=== PATIENT | male | born 1945 | race Caucasian/White ===

== ENCOUNTER → 2016-08-09 | Outpatient (CLI) | payer BC, MEDICARE ==
[2016-08-09 08:52] LABS: Appearance,Urine Clear (Clear); Bilirubin,Urine Negative (Negative); Glucose,Urine (UA) 3+ (Negative); HCT 37.5 % (39.0-53.0); HDW 3.06; HGB 11.6 gm/dL (13.0-17.5); Hypochromasia Slight; Ketones,Urine Negative (Negative); Leukocyte Esterase,Urine Negative (Negative); MCH 27.2 pg (25.0-35.0); MCHC 30.9 g/dL (31.0-37.0); Mean Platelet Volume 7.9; Mucus,Urine Rare /hpf; Nitrite,Urine Negative (Negative); PH, Urine 6.5 (5.0-8.0); Particle Count 2175; Protein,Urine 3+ (Negative); RBC 4.27 m/uL (4.30-5.90); RBC,Urine 8 /hpf (0-5); Specific Gravity,Urine 1.014 (1.001-1.035); Squamous Epithelial Cell,Urine <1 /hpf (0-4); UA Billing (MACRO vs. MICRO) MICRO; Urobilinogen,Urine <2.0 mg/dL (<2.0); WBC 4.2 k/uL (3.8-10.6); WBC,Urine 3 /hpf (0-5)
[2016-08-09 10:48] LABS: Anion Gap 9 mmol/L; Blood Urea Nitrogen 42 mg/dL (9-20); Calcium 8.1 mg/dL (8.4-10.2); Carbon Dioxide 23 mmol/L (22-30); Chloride 109 mmol/L (98-107); Glucose 263 mg/dL (74-99); Iron 37 ug/dL (49-181); Magnesium 1.8 mg/dL (1.6-2.3); Non-African American GFR(MDRD) 27 (>60 ml/min/1.73 sqM); Phosphorous 4.4 mg/dL (2.5-4.5); Potassium 5.7 mmol/L (3.5-5.1); Sodium 141 mmol/L (137-145); Uric Acid 6.3 mg/dL (3.5-8.5)
[2016-08-09 11:07] LABS: Total Iron Binding Capacity 265 ug/dL (261-462)
== END | disposition home or self-care (01) ==
LOC: LABWHC1 08:09
PROVIDERS: ATTEND Internal Medicine
DX: N18.3 Chronic kidney disease, stage 3 (moderate) (principal); I10 Essential (primary) hypertension; E55.9 Vitamin D deficiency, unspecified; E11.9 Type 2 diabetes mellitus without complications; Z94.0 Kidney transplant status
CPT/HCPCS: 36415; 80048; 81001; 82306; 83540; 83550; 83735; 83970; 84100; 84550; 85027

== ENCOUNTER → 2016-08-14 | Outpatient (CLI) | payer BC, MEDICARE | END | disposition home or self-care (01) | LOC: LABWHC1 07:16 | PROVIDERS: ATTEND Internal Medicine Nephrology | DX: Z48.22 Encounter for aftercare following kidney transplant (principal) | CPT/HCPCS: 36415; 80197 ==

== ENCOUNTER → 2016-08-16 | Outpatient (CLI) | payer BC, MEDICARE ==
[2016-08-16 09:19] LABS: CH 27.7; CHCM 31.5; HCT 36.6 % (39.0-53.0); HDW 3.28; HGB 11.8 gm/dL (13.0-17.5); Hypochromasia Moderate; MCH 28.4 pg (25.0-35.0); MCHC 32.1 g/dL (31.0-37.0); MCV 88.5 fL (80.0-100.0); Mean Platelet Volume 6.7; RBC 4.14 m/uL (4.30-5.90); RDW 14.9 % (11.5-15.5); WBC 4.2 k/uL (3.8-10.6)
[2016-08-16 09:20] LABS: Potassium 5.2 mmol/L (3.5-5.1); Total Bilirubin 0.6 mg/dL (0.2-1.3)
== END | disposition home or self-care (01) ==
LOC: LABWHC1 07:58
PROVIDERS: ATTEND Internal Medicine
DX: Z51.81 Encounter for therapeutic drug level monitoring (principal); Z79.899 Other long term (current) drug therapy; Z94.4 Liver transplant status
CPT/HCPCS: 36415; 82247; 82565; 82947; 84075; 84132; 84295; 84450; 84460; 85027

== ENCOUNTER → 2016-09-13 | Outpatient (CLI) | payer BC, MEDICARE ==
--- NOTE | 2016-09-13 12:52 | XR ---
EXAMINATION TYPE: XR chest 2V DATE OF EXAM: 09/13/2016 12:27 PM COMPARISON: 06/12/2016 INDICATION: Short of breath TECHNIQUE: Single frontal view of the chest is obtained. FINDINGS: The heart size is normal. The pulmonary vasculature is normal. The lungs are clear. Small bilateral infiltrates are present. Minimal effusion on the right is not excluded. Note is made of the screw within the distal left clavicle. IMPRESSION: 1. Mild bibasilar infiltrates slightly greater on the left. 2. Minimal right pleural effusion is not excluded.
== END | disposition home or self-care (01) ==
LOC: RADXRMAIN 12:12
PROVIDERS: ATTEND Internal Medicine
DX: R91.8 Other nonspecific abnormal finding of lung field (principal)
CPT/HCPCS: 71020

== ENCOUNTER → 2016-10-10 | Outpatient (CLI) | payer BC, MEDICARE ==
[2016-10-10 11:08] LABS: Calcium 8.6 mg/dL (8.4-10.2)
[2016-10-10 11:17] LABS: Potassium 6.3 mmol/L (3.5-5.1)
[2016-10-10 14:26] LABS: % Iron Saturation 9.8 % (20-50)
== END ==
LOC: LABWHC1 09:41
PROVIDERS: ATTEND Internal Medicine Nephrology
DX: Z94.0 Kidney transplant status (principal)
CPT/HCPCS: 36415; 80048; 82306; 82728; 83540; 83550

== ENCOUNTER → 2016-10-29 | Outpatient (CLI) | payer BC, MEDICARE ==
[2016-10-29 08:30] LABS: CH 27.5; CHCM 31.5; HCT 37.5 % (39.0-53.0); HDW 3.09; HGB 11.9 gm/dL (13.0-17.5); Hypochromasia Slight; MCHC 31.8 g/dL (31.0-37.0); MCV 87.9 fL (80.0-100.0); Mean Platelet Volume 7.7; RBC 4.26 m/uL (4.30-5.90); RDW 15.4 % (11.5-15.5); WBC 4.8 k/uL (3.8-10.6)
[2016-10-29 10:24] LABS: Calcium 9.1 mg/dL (8.4-10.2); Potassium 5.4 mmol/L (3.5-5.1)
[2016-10-29 10:34] LABS: % Iron Saturation 44.9 % (20-50)
== END | disposition home or self-care (01) ==
LOC: LABWHC1 07:49
PROVIDERS: ATTEND Nurse Practitioner Family
DX: D64.9 Anemia, unspecified (principal); E21.3 Hyperparathyroidism, unspecified; E61.1 Iron deficiency; E55.9 Vitamin D deficiency, unspecified; D63.8 Anemia in other chronic diseases classified elsewhere; Z94.0 Kidney transplant status
CPT/HCPCS: 36415; 80048; 80197; 82306; 82728; 83540; 83550; 83970; 85027

== ENCOUNTER 2016-11-26 10:25 | Inpatient (IN) | payer BC, MEDICARE ==
[2016-11-26 16:43] LABS: Glucose,Whole Blood 442 mg/dL (75-99)
[2016-11-26] MEDS ORDERED: BUDESONIDE 0.5 MG/2 ML NEBU INHALATION PRN (17:10)
[2016-11-26] MEDS ORDERED: GABAPENTIN 100 MG CAP PO PRN (17:10)
--- NOTE | 2016-11-26 17:29 | P.HPIM ---
History of Present Illness H&P Date: 11/26/16 Chief Complaint: Fluid overload and shortness of breath Patient is a 71-year-old male well-known to my practice who also follows with engineer design and construction Dr. EDDIE Nava and with nephrology, patient has a known history of insulin-dependent diabetes mellitus, congestive heart failure, end-stage renal disease with history of kidney transplant, patient had his creatinine going up over the last year, he was evaluated by nephrology and was advised to have a kidney biopsy, patient went to [facility] and had a kidney biopsy he was told he needs to stay there due to significant fluid overload to have IV diuresis, however he decided to come back to [place] and be admitted to [facility] for that purpose. Echocardiogram was done at the [facility] and revealed ejection fraction of 40%. Patient also has bilateral lower extremity ulcers he has been treated with the local Silvadene cream and dressing was improvement in his ulcers. Past Medical History Past Medical History: Asthma, Cancer, Heart Failure, COPD, Diabetes Mellitus, GERD/Reflux, Hyperlipidemia, Hypertension, Osteoarthritis (OA), Pneumonia, Renal Disease, Seizure Disorder Additional Past Medical History / Comment(s): 06/13/15 Pt presented to [facility] ER with SOB. He is admitted with clinical impression of CHF exacerbation, dyspnea and hyperglycemia, renal failure. 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 History of Any Multi-Drug Resistant Organisms: None Reported Past Surgical History: Heart Catheterization, Heart Catheterization With Stent Additional Past Surgical History / Comment(s): liver transplant 2006 d/t non alcoholic steatohepatits d/t fatty liver, colonoscopy, insertion lt arm fistula( in past had hemodialysis)-kidney implant 2011, lt shoulder sx has pin in place, rt wrist sx with pins, cataract removal and lens implants bilaterally 2013. Past Anesthesia/Blood Transfusion Reactions: No Reported Reaction Date of Last Stent Placement:: 2007 Past Psychological History: No Psychological Hx Reported Additional Psychological History / Comment(s): Pt resides at home with his spouse. He is independent. He uses no assistive device. He has no home care agency use. He drives. Smoking Status: Current every day smoker Past Alcohol Use History: None Reported Additional Past Alcohol Use History / Comment(s): Pt states he never quit smoking for long. He started smoking when he was 32 yrs old and is still smoking about a ppd. Past Drug Use History: None Reported - Past Family History Father Family Medical History: No Reported History, Cancer, Hypertension Additional Family Medical History / Comment(s): Father in his 80's. Mother Family Medical History: Diabetes Mellitus, Hypertension Additional Family Medical History / Comment(s): Mother in her 80's. Medications and Allergies Home Medications Medication Instructions Recorded Confirmed Type Atorvastatin [Lipitor] 20 mg PO DAILY 08/18/14 11/26/16 History Mycophenolate Mofetil [Cellcept] 500 mg PO BID 08/18/14 11/26/16 History Tacrolimus [Prograf] 3 mg PO QAM 08/18/14 11/26/16 History Aspirin 81 mg PO DAILY 01/18/15 11/26/16 History Allopurinol [Zyloprim] 100 mg PO DAILY 10/10/16 11/26/16 History Calcitriol [Rocaltrol] 0.25 mcg PO LARA 10/10/16 11/26/16 History Gabapentin [Neurontin] 100 mg PO TID PRN 10/10/16 11/26/16 History Sodium Bicarbonate Tab 650 mg PO BID 10/10/16 11/26/16 History amLODIPine [Norvasc] 10 mg PO DAILY 10/10/16 11/26/16 History Budesonide [Pulmicort] 0.5 mg INHALATION RT-BID PRN 11/26/16 11/26/16 History Ergocalciferol (Vitamin D2) 50,000 unit PO QMONTH 11/26/16 11/26/16 History [Vitamin D2] Furosemide [Lasix] 80 mg PO TID 11/26/16 11/26/16 History Insulin NPL/Insulin Lispro 15 unit SQ HS 11/26/16 11/26/16 History [humaLOG MIX 75-25 VIAL] Insulin NPL/Insulin Lispro 20 unit SQ QAM 11/26/16 11/26/16 History [humaLOG MIX 75-25 VIAL] Insulin NPL/Insulin Lispro See Protocol SQ TID 11/26/16 11/26/16 History [humaLOG MIX 75-25 VIAL] Ipratropium [place] [Atrovent Hfa] 2 puff INHALATION RT-QID PRN 11/26/16 History Metoprolol Succinate (ER) [Toprol 50 mg PO DAILY 11/26/16 11/26/16 History XL] Tacrolimus [Prograf] 4 mg PO HS 11/26/16 11/26/16 History predniSONE See Taper PO DAILY 11/26/16 11/26/16 History Allergies Allergy/AdvReac Type Severity Reaction Status Date / Time heaton Allergy Unknown Verified 11/26/16 16:09 erythromycin base Allergy Unknown Verified 11/26/16 16:09 codeine AdvReac Rash/Hives Verified 11/26/16 16:09 Physical Exam Vitals: Vital Signs Temp Pulse Resp BP Pulse Ox 11/26/16 16:00 98.1 F 78 18 175/76 96 Intake and Output 11/26/16 11/26/16 11/26/16 06:59 14:59 22:59 Other: Weight 98.3 kg Patient Weight 11/27/16 06:59 Weight 98.3 kg In general patient is alert and oriented 3 in no apparent distress HEENT head normocephalic and atraumatic Neck is supple no JVD no goiter no lymphadenopathy Chest exam reveals a few scattered crackles no wheezing Cardiac exam reveals regular heart sounds no gallops no murmurs Abdomen is soft nontender no organomegaly Extremity exam reveals 2+ edema, there is large superficial ulcers on both pretibial area of the largest on the right no cyanosis or clubbing Neurological examination reveals no gross focal deficit Results Labs: Abnormal Lab Results - Last 24 Hours (Table) 11/26/16 Range/Units 16:41 POC Glucose (mg/dL) 442 H (75-99) mg/dL Assessment and Plan Plan: #1 acute systolic congestive heart failure exacerbation echo cardiogram results revealed ejection fraction of 40% done few days ago at the [facility] #2 fluid overload #3 end-stage renal disease with history of kidney transplant was worsening kidney function over the last year #4 insulin-dependent diabetes mellitus, with suboptimal control with check A1c and adjust insulin as needed #5 underlying history of hypertension #6 underlying history of hyperlipidemia #7 bilateral superficial ulceration in both pretibial areas At this time home medication were ordered Will hold oral Lasix and start with IV Lasix 40 mg every 8 hours Will check daily weights and strict I and O Cardiology consultation and nephrology consultation were initiated
[2016-11-26] MEDS: FUROSEMIDE 10 MG/ML 4 ML VIAL IV SCH ×2 (18:11→23:06)
[2016-11-26] MEDS: ASPIRIN 81 MG CHEW PO SCH (18:11)
[2016-11-26] MEDS: predniSONE 10 MG TAB PO SCH (18:12)
[2016-11-26] MEDS: ATORVASTATIN 20 MG TAB PO SCH (18:12)
[2016-11-26] MEDS: INSULIN LISPRO (humaLOG) 300 UNIT/3 ML VIAL SQ SCH ×2 (18:13→21:29)
[2016-11-26 18:14] LABS: Basophils % (A) 0 %; CH 27.9; CHCM 31.9; Eosinophils % (A) 0 %; HCT 36.5 % (39.0-53.0); HDW 2.76; HGB 11.8 gm/dL (13.0-17.5); Luc # (Auto) 0.04; Luc % (Auto) 1; Lymphocytes # (A) 0.3 k/uL (1.0-4.8); Lymphocytes % (A) 6 %; MCH 28.4 pg (25.0-35.0); MCHC 32.3 g/dL (31.0-37.0); Mean Platelet Volume 8.1; Monocytes # (A) 0.2 k/uL (0-1.0); Monocytes % (A) 5 %; Neutrophils # (A) 3.5 k/uL (1.3-7.7); Neutrophils % (A) 87 %; RBC 4.15 m/uL (4.30-5.90); RDW 15.1 % (11.5-15.5); WBC (Perox) 3.76
[2016-11-26 18:24] LABS: Calcium 7.7 mg/dL (8.4-10.2); Potassium 5.1 mmol/L (3.5-5.1); Total Bilirubin 0.7 mg/dL (0.2-1.3); Total Protein 5.7 g/dL (6.3-8.2)
[2016-11-26] MEDS: TACROLIMUS 1 MG CAP PO SCH (20:42)
[2016-11-26] MEDS: APIXABAN 2.5 MG TABLET PO SCH (20:42)
[2016-11-26] MEDS: MYCOPHENOLATE MOFETIL 250 MG CAP PO SCH (20:42)
[2016-11-26] MEDS: SODIUM BICARBONATE TAB 650 MG TAB PO SCH (20:42)
[2016-11-26 20:45] LABS: Glucose,Whole Blood 421 mg/dL (75-99)
[2016-11-26] MEDS: INSULIN NPL/INSULIN LISPRO 100 UNIT/ML 10 ML VIAL (Humalog 75/25) SQ SCH (23:06)
[2016-11-27 06:09] LABS: Glucose,Whole Blood 280 mg/dL (75-99)
[2016-11-27] MEDS: INSULIN LISPRO (humaLOG) 300 UNIT/3 ML VIAL SQ SCH ×4 (06:29→20:51)
[2016-11-27 07:59] LABS: CH 27.9; CHCM 32.2; HCT 37.6 % (39.0-53.0); HDW 2.65; HGB 11.9 gm/dL (13.0-17.5); MCH 27.5 pg (25.0-35.0); MCHC 31.7 g/dL (31.0-37.0); MCV 86.8 fL (80.0-100.0); Mean Platelet Volume 8.4; RBC 4.33 m/uL (4.30-5.90); RDW 15.1 % (11.5-15.5); WBC 4.2 k/uL (3.8-10.6)
[2016-11-27] MEDS: FUROSEMIDE 10 MG/ML 4 ML VIAL IV SCH ×3 (08:10→23:13)
[2016-11-27] MEDS: ATORVASTATIN 20 MG TAB PO SCH (08:10)
[2016-11-27] MEDS: ASPIRIN 81 MG CHEW PO SCH (08:10)
[2016-11-27] MEDS: MYCOPHENOLATE MOFETIL 250 MG CAP PO SCH ×2 (08:10→20:34)
[2016-11-27] MEDS: APIXABAN 2.5 MG TABLET PO SCH ×2 (08:10→20:34)
[2016-11-27] MEDS: TACROLIMUS 1 MG CAP PO SCH ×2 (08:10→20:34)
[2016-11-27] MEDS: ALLOPURINOL 100 MG TAB PO SCH (08:11)
[2016-11-27] MEDS: METOPROLOL SUCCINATE (ER) 50 MG TAB.ER.24H PO SCH (08:11)
[2016-11-27] MEDS: predniSONE 10 MG TAB PO SCH (08:11)
[2016-11-27] MEDS: SODIUM BICARBONATE TAB 650 MG TAB PO SCH ×2 (08:11→20:34)
[2016-11-27] MEDS: amLODIPine 10 MG TAB PO SCH (08:11)
[2016-11-27] MEDS: INSULIN NPL/INSULIN LISPRO 100 UNIT/ML 10 ML VIAL (Humalog 75/25) SQ SCH ×2 (08:20→20:53)
[2016-11-27 08:23] LABS: Calcium 8.2 mg/dL (8.4-10.2)
[2016-11-27 08:33] LABS: Potassium 5.1 mmol/L (3.5-5.1)
[2016-11-27 09:57] VITALS: BMI 31.6
--- NOTE | 2016-11-27 10:12 | P.NPCON ---
History of Present Illness - Reason for Consult acute renal failure - History of Present Illness Reason for consultation: Acute kidney injury and transplant management. History of present illness: Patient is a 71-year-old male seen in renal consultation for renal fast and management as well as acute kidney injury on chronic kidney disease. Patient received a liver transplant in 2005 due to nonalcoholic steatohepatitis and subsequently developed end-stage renal disease from cyclosporine toxicity. He received a donor renal allograft in [address] [facility]. His baseline creatinine is in the range of 1.6-1.8 however recently been worsening. He was seen at [facility] last week and underwent a kidney biopsy which revealed borderline acute cellular rejection along with diabetic kidney disease as well as moderate arteriosclerosis and secondary FSGS. He was treated with IV steroids. Patient was also dyspneic with fluid overload and was receiving IV diuresis as well. Patient was eager to be discharged and left [facility]. He presented to the hospital here again due to dyspnea and volume overload. He is currently maintained on Lasix 40 mg 3 times daily and is diuresing well. His renal function is improved with creatinine at 3.03 today. Last week when he was at [facility] his creatinine was 3.9. He is currently maintained on CellCept, Prograf, prednisone for immunosuppression. Lower extremity edema is improved. Dyspnea is improved. No vomiting or diarrhea. Oral intake is good. He does have systolic CHF with ejection fraction of 40%. Vital signs are stable. General: The patient appeared well nourished and normally developed. HEENT: Head exam is unremarkable. Neck is without jugular venous distension. LUNGS: Lungs are clear to auscultation and percussion. Breath sounds decreased. HEART: Rate and Rhythm are regular. First and second heart sounds normal. No murmurs, rubs or gallops. ABDOMEN: Abdominal exam reveals normal bowel sounds. Non-tender and non- distended. No evidence of peritonitis. EXTREMITITES: 1+ edema. Blisters noted. Past Medical History Past Medical History: Asthma, Cancer, Heart Failure, COPD, Diabetes Mellitus, GERD/Reflux, Hyperlipidemia, Hypertension, Osteoarthritis (OA), Pneumonia, Renal Disease, Seizure Disorder Additional Past Medical History / Comment(s): 06/13/15 Pt presented to [facility] ER with SOB. He is admitted with clinical impression of CHF exacerbation, dyspnea and hyperglycemia, renal failure. 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 History of Any Multi-Drug Resistant Organisms: None Reported Past Surgical History: Heart Catheterization, Heart Catheterization With Stent Additional Past Surgical History / Comment(s): liver transplant 2005 d/t non alcoholic steatohepatits d/t fatty liver, colonoscopy, insertion lt arm fistula( in past had hemodialysis)-kidney implant 2011, lt shoulder sx has pin in place, rt wrist sx with pins, cataract removal and lens implants bilaterally 2013. Past Anesthesia/Blood Transfusion Reactions: No Reported Reaction Date of Last Stent Placement:: 2007 Past Psychological History: No Psychological Hx Reported Additional Psychological History / Comment(s): Pt resides at home with his spouse. He is independent. He uses no assistive device. He has no home care agency use. He drives. Smoking Status: Current every day smoker Past Alcohol Use History: None Reported Additional Past Alcohol Use History / Comment(s): Pt states he never quit smoking for long. He started smoking when he was 32 yrs old and is still smoking about a ppd. Past Drug Use History: None Reported - Past Family History Father Family Medical History: No Reported History, Cancer, Hypertension Additional Family Medical History / Comment(s): Father in his 80's. Mother Family Medical History: Diabetes Mellitus, Hypertension Additional Family Medical History / Comment(s): Mother in her 80's. Medications and Allergies Home Medications Medication Instructions Recorded Confirmed Type Atorvastatin [Lipitor] 20 mg PO DAILY 08/18/14 11/26/16 History Mycophenolate Mofetil [Cellcept] 500 mg PO BID 08/18/14 11/26/16 History Tacrolimus [Prograf] 3 mg PO QAM 08/18/14 11/26/16 History Aspirin 81 mg PO DAILY 01/18/15 11/26/16 History Allopurinol [Zyloprim] 100 mg PO DAILY 10/10/16 11/26/16 History Calcitriol [Rocaltrol] 0.25 mcg PO LARA 10/10/16 11/26/16 History Gabapentin [Neurontin] 100 mg PO TID PRN 10/10/16 11/26/16 History Sodium Bicarbonate Tab 650 mg PO BID 10/10/16 11/26/16 History amLODIPine [Norvasc] 10 mg PO DAILY 10/10/16 11/26/16 History Budesonide [Pulmicort] 0.5 mg INHALATION RT-BID PRN 11/26/16 11/26/16 History Ergocalciferol (Vitamin D2) 50,000 unit PO QMONTH 11/26/16 11/26/16 History [Vitamin D2] Furosemide [Lasix] 80 mg PO TID 11/26/16 11/26/16 History Insulin NPL/Insulin Lispro 15 unit SQ HS 11/26/16 11/26/16 History [humaLOG MIX 75-25 VIAL] Insulin NPL/Insulin Lispro 20 unit SQ QAM 11/26/16 11/26/16 History [humaLOG MIX 75-25 VIAL] Insulin NPL/Insulin Lispro See Protocol SQ TID 11/26/16 11/26/16 History [humaLOG MIX 75-25 VIAL] Ipratropium [place] [Atrovent Hfa] 2 puff INHALATION RT-QID PRN 11/26/16 History Metoprolol Succinate (ER) [Toprol 50 mg PO DAILY 11/26/16 11/26/16 History XL] Tacrolimus [Prograf] 4 mg PO HS 11/26/16 11/26/16 History predniSONE [(None)] See Taper PO DAILY 11/26/16 11/26/16 History Allergies Allergy/AdvReac Type Severity Reaction Status Date / Time heaton Allergy Unknown Verified 11/26/16 16:09 erythromycin base Allergy Unknown Verified 11/26/16 16:09 codeine AdvReac Rash/Hives Verified 11/26/16 16:09 Physical Exam Vitals: Vital Signs Temp Pulse Resp BP Pulse Ox 11/27/16 08:00 98 F 84 18 182/83 99 11/27/16 04:00 97.7 F 78 16 173/85 97 11/27/16 00:00 76 18 171/81 98 11/26/16 20:45 97.6 F 78 18 158/77 97 11/26/16 16:00 98.1 F 78 18 175/76 96 Intake and Output 11/26/16 11/27/16 11/27/16 22:59 06:59 14:59 Intake Total 300 118 Output Total 1050 400 Balance -1050 -100 118 Intake: Oral 300 118 Output: Urine 1050 400 Other: Weight 98.3 kg 97 kg 97 kg Patient Weight 11/28/16 06:59 Weight 97 kg Results - Lab Results Most recent lab results Calcium 8.2 mg/dL (8.4-10.2) L 11/27/16 07:36 11/27/16 07:36 11/27/16 07:36 Assessment and Plan Plan: Assessment: #1. Nonoliguric acute kidney injury secondary to cardiorenal syndrome. Creatinine improving and is down to 3.03 this morning. #2. History of end-stage renal disease status post donor renal allograft from [address] [facility]. Etiology was cyclosporine toxicity. #3. 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 Patient underwent a renal biopsy in November 2016 which revealed borderline acute cellular rejection that was treated with IV steroids. The biopsy also revealed diabetic kidney changes along with moderate arteriosclerosis and secondary FSGS. #4. Volume overload. Improving. #5. Systolic CHF ejection fraction of 40%. #6. Insulin-dependent diabetes mellitus. #7. Hypertension with chronic kidney disease. Uncontrolled. #8. Chronic kidney disease mineral bone disease maintained on calcitriol. Plan: Continue IV Lasix 40 mg 3 times daily. Continue with Prograf 3 mg in the morning and 4 mg in the evening along with CellCept 500 mg twice daily and prednisone 10 mg daily. Avoid nephrotoxic agents and hypotensive episodes. Repeat electrolytes in the morning. Add hydralazine 25 mg 3 times daily. Check Prograf level. Target level is 8. Thank you for the consultation. I will continue to follow the patient with you during his hospital stay.
[2016-11-27] MEDS: hydrALAZINE HCL 25 MG TAB PO SCH ×3 (10:47→20:34)
[2016-11-27 11:35] LABS: Glucose,Whole Blood 250 mg/dL (75-99)
--- NOTE | 2016-11-27 11:52 | P.CRDCN ---
<Sweta Timmons E - Last Filed: 11/27/16 12:27> History of Present Illness Consult date: 11/27/16 Requesting physician: Jayla Mahmood Consult reason: congestive heart failure Chief complaint: Fluid overload History of present illness: Is a 71-year-old gentleman who follows with Dr. Pauline Nava in the office. He has known history of liver and kidney transplant, history of coronary artery disease with prior stent placement approximately 7 years ago, hyperlipidemia, chronic persistent atrial fibrillation hypertension, diabetes, he is a nonsmoker. was at the [facility] undergoing a kidney biopsy, he was recommended to stay in the hospital because of significant fluid overload, however the patient decided to come back to [place] and be admitted to [facility]. For this reason he came to the hospital to be admitted. There is been no chest x-ray performed. At pressure on arrival here 175/76 with a heart rate in the 70s. 96% on room air. White blood cell count normal, hemoglobin 11.9, platelet count 142, potassium 5.1, BUN 108 and creatinine 3.0. The glucose on admission 414. BNP level 30,200. Patient was seen in consultation by nephrology, their recommendations were to continue IV Lasix 40 mg 3 times a day along with the Prograf him a prednisone and CellCept. Hydralazine 25 mg 3 times a day was also added. She states that he's been diuresing well on the IV Lasix. Overall, the patient states he feels well, he has noticed some worsening in his breathing over the past couple of months. But overall stable. No EKG has been performed, rhythm strip shows atrial fibrillation with a controlled ventricular response. Past Medical History Past Medical History: Asthma, Cancer, Heart Failure, COPD, Diabetes Mellitus, GERD/Reflux, Hyperlipidemia, Hypertension, Osteoarthritis (OA), Pneumonia, Renal Disease, Seizure Disorder Additional Past Medical History / Comment(s): 06/13/[address] [facility] ER with SOB. He is admitted with clinical impression of CHF exacerbation, dyspnea and hyperglycemia, renal failure. 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 History of Any Multi-Drug Resistant Organisms: None Reported Past Surgical History: Heart Catheterization, Heart Catheterization With Stent Additional Past Surgical History / Comment(s): liver transplant 2005 d/t non alcoholic steatohepatits d/t fatty liver, colonoscopy, insertion lt arm fistula( in past had hemodialysis)-kidney implant 2011, lt shoulder sx has pin in place, rt wrist sx with pins, cataract removal and lens implants bilaterally 2013. Past Anesthesia/Blood Transfusion Reactions: No Reported Reaction Date of Last Stent Placement:: 2007 Past Psychological History: No Psychological Hx Reported Additional Psychological History / Comment(s): Pt resides at home with his spouse. He is independent. He uses no assistive device. He has no home care agency use. He drives. Smoking Status: Current every day smoker Past Alcohol Use History: None Reported Additional Past Alcohol Use History / Comment(s): Pt states he never quit smoking for long. He started smoking when he was 32 yrs old and is still smoking about a ppd. Past Drug Use History: None Reported - Past Family History Father Family Medical History: No Reported History, Cancer, Hypertension Additional Family Medical History / Comment(s): Father in his 80's. Mother Family Medical History: Diabetes Mellitus, Hypertension Additional Family Medical History / Comment(s): Mother in her 80's. Medications and Allergies Home Medications Medication Instructions Recorded Confirmed Type Atorvastatin [Lipitor] 20 mg PO DAILY 08/18/14 11/26/16 History Mycophenolate Mofetil [Cellcept] 500 mg PO BID 08/18/14 11/26/16 History Tacrolimus [Prograf] 3 mg PO QAM 08/18/14 11/26/16 History Aspirin 81 mg PO DAILY 01/18/15 11/26/16 History Allopurinol [Zyloprim] 100 mg PO DAILY 10/10/16 11/26/16 History Calcitriol [Rocaltrol] 0.25 mcg PO LARA 10/10/16 11/26/16 History Gabapentin [Neurontin] 100 mg PO TID PRN 10/10/16 11/26/16 History Sodium Bicarbonate Tab 650 mg PO BID 10/10/16 11/26/16 History amLODIPine [Norvasc] 10 mg PO DAILY 10/10/16 11/26/16 History Budesonide [Pulmicort] 0.5 mg INHALATION RT-BID PRN 11/26/16 11/26/16 History Ergocalciferol (Vitamin D2) 50,000 unit PO QMONTH 11/26/16 11/26/16 History [Vitamin D2] Furosemide [Lasix] 80 mg PO TID 11/26/16 11/26/16 History Insulin NPL/Insulin Lispro 15 unit SQ HS 11/26/16 11/26/16 History [humaLOG MIX 75-25 VIAL] Insulin NPL/Insulin Lispro 20 unit SQ QAM 11/26/16 11/26/16 History [humaLOG MIX 75-25 VIAL] Insulin NPL/Insulin Lispro See Protocol SQ TID 11/26/16 11/26/16 History [humaLOG MIX 75-25 VIAL] Ipratropium Festus [Atrovent Hfa] 2 puff INHALATION RT-QID PRN 11/26/16 History Metoprolol Succinate (ER) [Toprol 50 mg PO DAILY 11/26/16 11/26/16 History XL] Tacrolimus [Prograf] 4 mg PO HS 11/26/16 11/26/16 History predniSONE See Taper PO DAILY 11/26/16 11/26/16 History Allergies Allergy/AdvReac Type Severity Reaction Status Date / Time heaton Allergy Unknown Verified 11/26/16 16:09 erythromycin base Allergy Unknown Verified 11/26/16 16:09 codeine AdvReac Rash/Hives Verified 11/26/16 16:09 Physical Exam Vitals: Vital Signs Temp Pulse Resp BP Pulse Ox 11/27/16 08:00 98 F 84 18 182/83 99 11/27/16 04:00 97.7 F 78 16 173/85 97 11/27/16 00:00 76 18 171/81 98 11/26/16 20:45 97.6 F 78 18 158/77 97 11/26/16 16:00 98.1 F 78 18 175/76 96 Intake and Output 11/26/16 11/27/16 11/27/16 22:59 06:59 14:59 Intake Total 300 118 Output Total 1050 400 Balance -1050 -100 118 Intake: Oral 300 118 Output: Urine 1050 400 Other: Weight 98.3 kg 97 kg 97 kg Patient Weight 11/28/16 06:59 Weight 97 kg PHYSICAL EXAMINATION: HEENT: Head is atraumatic, normocephalic. Pupils equal, round. Neck is supple. There is no elevated jugular venous pressure. HEART EXAMINATION: Heart S1 and S2 irregularly irregular CHEST EXAMINATION: Lungs reveal diminished air entry to bilateral bases. ABDOMEN: Soft, nontender. Bowel sounds are heard. No organomegaly noted. EXTREMITIES: 2+ peripheral pulses with 1+ evidence of peripheral edema and no calf tenderness noted. Bilateral Mike wraps in place. NEUROLOGIC patient is awake, alert and oriented -3. . Results 11/27/16 07:36 11/27/16 07:36 Cardiac Enzymes 11/26/16 Range/Units 17:36 AST 34 (17-59) U/L CBC 11/26/16 11/27/16 Range/Units 17:36 07:36 WBC 4.0 4.2 (3.8-10.6) k/uL RBC 4.15 L 4.33 (4.30-5.90) m/uL Hgb 11.8 L 11.9 L (13.0-17.5) gm/dL Hct 36.5 L 37.6 L (39.0-53.0) % Plt Count 134 L 142 L (150-450) k/uL Comprehensive Metabolic Panel 11/26/16 11/27/16 Range/Units 17:36 07:36 Sodium 136 L 137 (137-145) mmol/L Potassium 5.1 5.1 (3.5-5.1) mmol/L Chloride 102 104 (98-107) mmol/L Carbon Dioxide 21 L 22 (22-30) mmol/L BUN 108 H* 108 H* (9-20) mg/dL Creatinine 3.26 H 3.03 H (0.66-1.25) mg/dL Glucose 414 H 257 H (74-99) mg/dL Calcium 7.7 L 8.2 L (8.4-10.2) mg/dL AST 34 (17-59) U/L ALT 38 (21-72) U/L Alkaline Phosphatase 87 (38-126) U/L Total Protein 5.7 L (6.3-8.2) g/dL Albumin 3.6 (3.5-5.0) g/dL Current Medications Generic Name Dose Route Start Last Admin Trade Name Freq PRN Reason Stop Dose Admin Allopurinol 100 mg 11/27/16 09:00 11/27/16 08:11 Zyloprim PO 100 mg DAILY MAGDI Administration Amlodipine Besylate 10 mg 11/27/16 09:00 11/27/16 08:11 Norvasc PO 10 mg DAILY MAGDI Administration Apixaban 2.5 mg 11/26/16 21:00 11/27/16 08:10 Eliquis PO 2.5 mg BID MAGDI Administration Aspirin 81 mg 11/26/16 17:15 11/27/16 08:10 Aspirin PO 81 mg DAILY MAGDI Administration Atorvastatin Calcium 20 mg 11/26/16 17:15 11/27/16 08:10 Lipitor PO 20 mg DAILY [facility] Administration Budesonide 0.5 mg 11/26/16 17:10 Pulmicort INHALATION RT-BID PRN Shortness Of Breath Calcitriol 0.25 mcg 12/02/16 09:00 Rocaltrol PO Lara@0900 [facility] Ergocalciferol 50,000 unit 12/12/16 09:00 Vitamin D2 PO QMONTH [facility] Furosemide 40 mg 11/26/16 17:15 11/27/16 08:10 Lasix IV 40 mg Q8HR MAGDI Administration Gabapentin 100 mg 11/26/16 17:10 11/26/16 18:11 Neurontin PO 100 mg TID PRN Administration Pain Hydralazine HCl 25 mg 11/27/16 10:15 11/27/16 10:47 Apresoline PO 25 mg TID [facility] Administration Insulin Human Lispro 0 unit 11/26/16 17:30 11/27/16 06:29 Humalog SQ 4 unit ACHS [facility] Administration Protocol Insulin Lispro Protam/Lispro Human 15 unit 11/26/16 21:00 11/26/16 23:06 Humalog Mix 75-25 Vial SQ 15 unit HS MAGDI Administration Insulin Lispro Protam/Lispro Human 20 unit 11/27/16 09:00 11/27/16 08:20 Humalog Mix 75-25 Vial SQ 20 unit QAM [facility] Administration Metoprolol Succinate 50 mg 11/27/16 09:00 11/27/16 08:11 Toprol Xl PO 50 mg DAILY [facility] Administration Mycophenolate Mofetil 500 mg 11/26/16 21:00 11/27/16 08:10 Cellcept PO 500 mg BID MAGDI Administration Prednisone 10 mg 11/26/16 17:15 11/27/16 08:11 PO 10 mg DAILY MAGDI Administration Silver Sulfadiazine 1 applic 11/26/16 17:30 11/27/16 08:12 Silvadene Cream TOPICAL 1 applic DAILY MAGDI Administration Sodium Bicarbonate 650 mg 11/26/16 21:00 11/27/16 08:11 Sodium Bicarbonate Tab PO 650 mg BID MAGDI Administration Tacrolimus 3 mg 11/27/16 09:00 11/27/16 08:10 Prograf PO 3 mg QAM MAGDI Administration Tacrolimus 4 mg 11/26/16 21:00 11/26/16 20:42 Prograf PO 4 mg HS MAGDI Administration Intake and Output 11/26/16 11/27/16 11/27/16 22:59 06:59 14:59 Intake Total 300 118 Output Total 1050 400 Balance -1050 -100 118 Intake: Oral 300 118 Output: Urine 1050 400 Other: Weight 98.3 kg 97 kg 97 kg Patient Weight 11/28/16 06:59 Weight 97 kg 11/27/16 07:36 11/27/16 07:36 EKG Interpretations (text) EKG pending Assessment and Plan Plan: Assessment and plan #1 systolic congestive heart failure acute on chronic echocardiogram with Doppler study performed in June 2015 revealed an ejection fraction of 35-40% . #2 chronic persistent atrial fibrillation, on Eliquis for anticoagulation #3 diabetes #4 hypertension uncontrolled #5 hyperlipidemia #6 bilateral ulcerations of both pretibial areas, Mike wrap in place. #7 history of liver transplant #8 end-stage renal disease with hx of kidney transplant, recent biopsy performed at [facility]. Plan Continue current dose of IV Lasix. Repeat echocardiogram with Doppler study. Optimize blood pressure control. Obtain chest x-ray and EKG. Add Imdur to his medication regime. Continue to monitor intake and output along with daily weights. DNP note has been reviewed, I agree with a documented findings and plan of care. Patient was seen and examined. <Bin Adame - Last Filed: 11/27/16 17:52> Physical Exam Vitals: Vital Signs Temp Pulse Resp BP Pulse Ox 11/27/16 15:48 75 18 159/71 99 11/27/16 11:31 73 18 177/80 98 11/27/16 08:00 98 F 84 18 182/83 99 11/27/16 04:00 97.7 F 78 16 173/85 97 11/27/16 00:00 76 18 171/81 98 11/26/16 20:45 97.6 F 78 18 158/77 97 Intake and Output 11/27/16 11/27/16 11/27/16 06:59 14:59 22:59 Intake Total 300 416 Output Total 400 1000 800 Balance -100 584 -800 Intake: Oral 300 416 Output: Urine 400 1000 800 Other: Weight 97 kg 97 kg Patient Weight 11/28/16 06:59 Weight 97 kg Results 11/27/16 07:36 11/27/16 07:36 Cardiac Enzymes 11/26/16 Range/Units 17:36 AST 34 (17-59) U/L CBC 11/26/16 11/27/16 Range/Units 17:36 07:36 WBC 4.0 4.2 (3.8-10.6) k/uL RBC 4.15 L 4.33 (4.30-5.90) m/uL Hgb 11.8 L 11.9 L (13.0-17.5) gm/dL Hct 36.5 L 37.6 L (39.0-53.0) % Plt Count 134 L 142 L (150-450) k/uL Comprehensive Metabolic Panel 11/26/16 11/27/16 Range/Units 17:36 07:36 Sodium 136 L 137 (137-145) mmol/L Potassium 5.1 5.1 (3.5-5.1) mmol/L Chloride 102 104 (98-107) mmol/L Carbon Dioxide 21 L 22 (22-30) mmol/L BUN 108 H* 108 H* (9-20) mg/dL Creatinine 3.26 H 3.03 H (0.66-1.25) mg/dL Glucose 414 H 257 H (74-99) mg/dL Calcium 7.7 L 8.2 L (8.4-10.2) mg/dL AST 34 (17-59) U/L ALT 38 (21-72) U/L Alkaline Phosphatase 87 (38-126) U/L Total Protein 5.7 L (6.3-8.2) g/dL Albumin 3.6 (3.5-5.0) g/dL Current Medications Generic Name Dose Route Start Last Admin Trade Name Freq PRN Reason Stop Dose Admin Allopurinol 100 mg 11/27/16 09:00 11/27/16 08:11 Zyloprim PO 100 mg DAILY MAGDI Administration Amlodipine Besylate 10 mg 11/27/16 09:00 11/27/16 08:11 Norvasc PO 10 mg DAILY [facility] Administration Apixaban 2.5 mg 11/26/16 21:00 11/27/16 08:10 Eliquis PO 2.5 mg BID MAGDI Administration Aspirin 81 mg 11/26/16 17:15 11/27/16 08:10 Aspirin PO 81 mg DAILY MAG[facility] Administration Atorvastatin Calcium 20 mg 11/26/16 17:15 11/27/16 08:10 Lipitor PO 20 mg DAILY [facility] Administration Budesonide 0.5 mg 11/26/16 17:10 Pulmicort INHALATION RT-BID PRN Shortness Of Breath Calcitriol 0.25 mcg 12/02/16 09:00 Rocaltrol PO Lara@0900 [facility] Ergocalciferol 50,000 unit 12/12/16 09:00 Vitamin D2 PO QMONTH [facility] Furosemide 40 mg 11/26/16 17:15 11/27/16 15:28 Lasix IV 40 mg Q8HR MAGDI Administration Gabapentin 100 mg 11/26/16 17:10 11/26/16 18:11 Neurontin PO 100 mg TID PRN Administration Pain Hydralazine HCl 25 mg 11/27/16 10:15 11/27/16 15:28 Apresoline PO 25 mg TID [facility] Administration Insulin Human Lispro 0 unit 11/26/16 17:30 11/27/16 16:46 Humalog SQ 5 unit ACHS [facility] Administration Protocol Insulin Lispro Protam/Lispro Human 15 unit 11/26/16 21:00 11/26/16 23:06 Humalog Mix 75-25 Vial SQ 15 unit HS MAGDI Administration Insulin Lispro Protam/Lispro Human 20 unit 11/27/16 09:00 11/27/16 08:20 Humalog Mix 75-25 Vial SQ 20 unit QAM [facility] Administration Isosorbide Mononitrate 60 mg 11/27/16 12:30 11/27/16 13:45 Imdur PO 60 mg DAILY [facility] Administration Metoprolol Succinate 50 mg 11/27/16 09:00 11/27/16 08:11 Toprol Xl PO 50 mg DAILY [facility] Administration Mycophenolate Mofetil 500 mg 11/26/16 21:00 11/27/16 08:10 Cellcept PO 500 mg BID MAGDI Administration Prednisone 10 mg 11/26/16 17:15 11/27/16 08:11 PO 10 mg DAILY [facility] Administration Silver Sulfadiazine 1 applic 11/26/16 17:30 11/27/16 08:12 Silvadene Cream TOPICAL 1 applic DAILY [facility] Administration Sodium Bicarbonate 650 mg 11/26/16 21:00 11/27/16 08:11 Sodium Bicarbonate Tab PO 650 mg BID MAGDI Administration Tacrolimus 3 mg 11/27/16 09:00 11/27/16 08:10 Prograf PO 3 mg QAM [facility]DI Administration Tacrolimus 4 mg 11/26/16 21:00 11/26/16 20:42 Prograf PO 4 mg HS MAGDI Administration Intake and Output 11/27/16 11/27/16 11/27/16 06:59 14:59 22:59 Intake Total 300 416 Output Total 400 1000 800 Balance -100 -584 -800 Intake: Oral 300 416 Output: Urine 400 1000 800 Other: Weight 97 kg 97 kg Patient Weight 11/28/16 06:59 Weight 97 kg 11/27/16 07:36 11/27/16 07:36
--- NOTE | 2016-11-27 13:11 | XR ---
EXAMINATION TYPE: XR chest 2V DATE OF EXAM: 11/27/2016 12:56 PM COMPARISON: 09/13/2016 HISTORY: 71-year-old male which shortness of breath, CHF TECHNIQUE: Frontal and lateral views FINDINGS: Heart is upper limits of normal in size. Aorta within normal limits. There are trace pleural effusion s noted. No consolidation. IMPRESSION: Trace pleural effusions may relate to mild CHF. No pulmonary edema.
[2016-11-27] MEDS: ISOSORBIDE MONONITRATE ER 60 MG TAB.ER.24H PO SCH (13:45)
--- NOTE | 2016-11-27 13:58 | P.PN ---
Subjective Principal diagnosis: Acute systolic congestive heart failure exacerbation Patient is feeling better he has less shortness of breath and less swelling in his legs Denies any new complaints Objective - Vital Signs Vital signs: Vital Signs Temp 98 F 11/27/16 08:00 Pulse 84 11/27/16 11:31 Resp 18 11/27/16 11:31 BP 177/80 11/27/16 11:31 Pulse Ox 98 11/27/16 11:31 Intake & Output 11/26/16 11/27/16 11/27/16 18:59 06:59 18:59 Intake Total 300 416 Output Total 450 1000 1000 Balance -445 -412 -003 Weight 98.3 kg 97 kg 97 kg Intake: Oral 300 416 Output: Urine 450 1000 1000 - Exam In general patient is alert and oriented 3 in no apparent distress HEENT head normocephalic and atraumatic Neck is supple no JVD no goiter no lymphadenopathy Chest exam reveals a few scattered crackles no wheezing Cardiac exam reveals regular heart sounds no gallops no murmurs Abdomen is soft nontender no organomegaly Extremity exam reveals 2+ edema, there is large superficial ulcers on both pretibial area of the largest on the right no cyanosis or clubbing Neurological examination reveals no gross focal deficit - Labs CBC & Chem 7: 11/27/16 07:36 11/27/16 07:36 Labs: Abnormal Lab Results - Last 24 Hours (Table) 11/26/16 11/26/16 11/26/16 Range/Units 16:41 17:36 17:36 RBC 4.15 L (4.30-5.90) m/uL Hgb 11.8 L (13.0-17.5) gm/dL Hct 36.5 L (39.0-53.0) % Plt Count 134 L (150-450) k/uL Lymphocytes # 0.3 L (1.0-4.8) k/uL Sodium 136 L (137-145) mmol/L Carbon Dioxide 21 L (22-30) mmol/L BUN 108 H* (9-20) mg/dL Creatinine 3.26 H (0.66-1.25) mg/dL Glucose 414 H (74-99) mg/dL POC Glucose (mg/dL) 442 H (75-99) mg/dL Hemoglobin A1c (4.2-6.1) % Calcium 7.7 L (8.4-10.2) mg/dL Total Protein 5.7 L (6.3-8.2) g/dL 11/26/16 11/26/16 11/27/16 Range/Units 17:36 20:45 06:08 RBC (4.30-5.90) m/uL Hgb (13.0-17.5) gm/dL Hct (39.0-53.0) % Plt Count (150-450) k/uL Lymphocytes # (1.0-4.8) k/uL Sodium (137-145) mmol/L Carbon Dioxide (22-30) mmol/L BUN (9-20) mg/dL Creatinine (0.66-1.25) mg/dL Glucose (74-99) mg/dL POC Glucose (mg/dL) 421 H 280 H (75-99) mg/dL Hemoglobin A1c 8.0 H (4.2-6.1) % Calcium (8.4-10.2) mg/dL Total Protein (6.3-8.2) g/dL 11/27/16 11/27/16 11/27/16 Range/Units 07:36 07:36 11:33 RBC (4.30-5.90) m/uL Hgb 11.9 L (13.0-17.5) gm/dL Hct 37.6 L (39.0-53.0) % Plt Count 142 L (150-450) k/uL Lymphocytes # (1.0-4.8) k/uL Sodium (137-145) mmol/L Carbon Dioxide (22-30) mmol/L BUN 108 H* (9-20) mg/dL Creatinine 3.03 H (0.66-1.25) mg/dL Glucose 257 H (74-99) mg/dL POC Glucose (mg/dL) 250 H (75-99) mg/dL Hemoglobin A1c (4.2-6.1) % Calcium 8.2 L (8.4-10.2) mg/dL Total Protein (6.3-8.2) g/dL Assessment and Plan Plan: #1 acute systolic congestive heart failure exacerbation echo cardiogram results revealed ejection fraction of 40% done few days ago at the [facility] #2 fluid overload #3 end-stage renal disease with history of kidney transplant was worsening kidney function over the last year #4 insulin-dependent diabetes mellitus, with suboptimal control with check A1c and adjust insulin as needed #5 underlying history of hypertension #6 underlying history of hyperlipidemia #7 bilateral superficial ulceration in both pretibial areas At this time home medication were ordered Will hold oral Lasix and start with IV Lasix 40 mg every 8 hours Will check daily weights and strict I and O Cardiology consultation and nephrology consultation were initiated
--- NOTE | 2016-11-27 16:06 | CDI ---
In responding to this query, please exercise your independent professional judgment. The [facility] Coding Staff and Clinical Documentation Specialists appreciate your assistance in clarifying documentation, maintaining compliance with coding guidelines, accurately documenting patients condition and capturing severity of illness. The fact that a question is asked does not imply that any particular answer is desired or expected. Communication forms are a method of clarifying documentation and are not made part of the Legal Health Record. Thank you in advance for your clarification. Last Revision, September 2015 Michelle Christie [address] [place] [address] Documentation Clarification Form Date: 11/27/2016 3:43:00 PM From: Bella Hammer RN, CDS Admit Date: 11/26/2016 3:20:00 PM Patient Name: Chester Martins Visit Number: [id number] Dr. Jayla Mahmood, 71 yo patient admitted for Acute on Chronic Systolic CHF with history of right kidney transplant and Diabetes Mellitus. Bilateral superficial ulcerations at bilateral pretibial areas are documented Patient history/risk factors: 71 yo H/O DM, ESRD, Kidney transplant, Liver Transplant, Clinical Indicators: Bilateral legs 4+ edema weeping, "bilateral superficial ulceration in both pretibial areas" Glucose: [phone], "Uncontrolled diabetes" per Cardiology consult, Wound assessment: Per nursing physical assessment skin bilat lower leg warm thin boggy, saggy, fragile Treatment: Sliding scale Insulin coverage, IV Lasix, bilateral hellen wraps In your professional opinion, can the etiology and severity of the wound be further specified as one of the following? Etiology: Non-pressure chronic ulcer due to diabetes Non-pressure chronic ulcer due to arterial insufficiency Non-pressure chronic ulcer due to venous insufficiency Non-pressure chronic ulcer due to trauma Other, Please specify Unable to determine Severity: Limited to breakdown of skin With fat layer exposed With necrosis of muscle With necrosis of bone Other, Please specify Unable to determine Please document in your progress notes and discharge summary in order to capture severity of illness and risk of mortality. Include clinical findings that support your diagnosis. FYI: Press F11 to launch patient chart Place X here if this finding has no clinical significance, is not applicable or if you are not able to provide any additional documentation. LUCIANAD
[2016-11-27 16:24] LABS: Glucose,Whole Blood 291 mg/dL (75-99)
[2016-11-27 20:49] LABS: Glucose,Whole Blood 303 mg/dL (75-99)
[2016-11-28 05:37] LABS: Glucose,Whole Blood 147 mg/dL (75-99)
[2016-11-28] MEDS: INSULIN LISPRO (humaLOG) 300 UNIT/3 ML VIAL SQ SCH ×4 (06:06→21:36)
[2016-11-28 07:26] LABS: Basophils % (A) 0 %; CH 28.1; CHCM 32.7; Eosinophils # (A) 0.1 k/uL (0-0.7); Eosinophils % (A) 3 %; HCT 35.8 % (39.0-53.0); HDW 2.67; HGB 11.6 gm/dL (13.0-17.5); Luc # (Auto) 0.08; Luc % (Auto) 2; Lymphocytes # (A) 0.6 k/uL (1.0-4.8); Lymphocytes % (A) 14 %; MCH 27.9 pg (25.0-35.0); MCHC 32.4 g/dL (31.0-37.0); MCV 86.1 fL (80.0-100.0); Mean Platelet Volume 7.9; Monocytes # (A) 0.3 k/uL (0-1.0); Monocytes % (A) 9 %; Neutrophils # (A) 2.9 k/uL (1.3-7.7); Neutrophils % (A) 73 %; RBC 4.15 m/uL (4.30-5.90); RDW 15.1 % (11.5-15.5); WBC 3.9 k/uL (3.8-10.6); WBC (Perox) 4.24
[2016-11-28 07:41] LABS: Calcium 8.3 mg/dL (8.4-10.2); Potassium 4.4 mmol/L (3.5-5.1); Total Bilirubin 0.9 mg/dL (0.2-1.3); Total Protein 5.7 g/dL (6.3-8.2)
[2016-11-28] MEDS: FUROSEMIDE 10 MG/ML 4 ML VIAL IV SCH ×2 (07:59→15:21)
[2016-11-28] MEDS: TACROLIMUS 1 MG CAP PO SCH ×2 (08:00→21:33)
[2016-11-28] MEDS: SODIUM BICARBONATE TAB 650 MG TAB PO SCH ×2 (08:00→21:33)
[2016-11-28] MEDS: APIXABAN 2.5 MG TABLET PO SCH ×2 (08:00→21:34)
[2016-11-28] MEDS: hydrALAZINE HCL 25 MG TAB PO SCH ×3 (08:01→21:34)
[2016-11-28] MEDS: MYCOPHENOLATE MOFETIL 250 MG CAP PO SCH ×2 (08:01→21:34)
[2016-11-28] MEDS: amLODIPine 10 MG TAB PO SCH (08:01)
[2016-11-28] MEDS: METOPROLOL SUCCINATE (ER) 50 MG TAB.ER.24H PO SCH (08:01)
[2016-11-28] MEDS: ALLOPURINOL 100 MG TAB PO SCH (08:01)
[2016-11-28] MEDS: ATORVASTATIN 20 MG TAB PO SCH (08:02)
[2016-11-28] MEDS: ISOSORBIDE MONONITRATE ER 60 MG TAB.ER.24H PO SCH (08:02)
[2016-11-28] MEDS: ASPIRIN 81 MG CHEW PO SCH (08:02)
[2016-11-28] MEDS: predniSONE 10 MG TAB PO SCH (08:02)
[2016-11-28] MEDS: INSULIN NPL/INSULIN LISPRO 100 UNIT/ML 10 ML VIAL (Humalog 75/25) SQ SCH ×2 (09:19→21:36)
--- NOTE | 2016-11-28 09:39 | P.PN ---
Subjective Patient is seen in follow-up for acute kidney injury and renal transplant management. Patient has chronic kidney disease stage III with baseline creatinine near 1.7-1.8 however recently his creatinine has been closer to 3 area patient underwent a kidney biopsy at [facility] on November 21 which revealed borderline acute cellular rejection as well as diabetic kidney changes. The renal biopsy also revealed moderate arteriosclerosis and secondary FSGS. He was treated with IV steroids at [facility]. 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 Patient presented with fluid overload. He does of systolic CHF with ejection fraction of 40%. He's currently maintained on Lasix 40 mg IV 3 times daily and is diuresing well. His weight is trending down. Edema is improving. Denies chest pain or shortness of breath. Oral intake is good. Vital signs are stable. General: The patient appeared well nourished and normally developed. HEENT: Head exam is unremarkable. Neck is without jugular venous distension. LUNGS: Lungs are clear to auscultation and percussion. Breath sounds decreased. HEART: Rate and Rhythm are regular. First and second heart sounds normal. No murmurs, rubs or gallops. ABDOMEN: Abdominal exam reveals normal bowel sounds. Non-tender and non- distended. No evidence of peritonitis. EXTREMITITES: Trace edema. Objective - Vital Signs Vital signs: Vital Signs Temp 97.1 F L 11/28/16 04:00 Pulse 76 11/28/16 08:00 Resp 18 11/28/16 08:00 BP 167/77 11/28/16 08:00 Pulse Ox 100 11/28/16 08:00 Intake & Output 11/27/16 11/28/16 11/28/16 18:59 06:59 18:59 Intake Total 596 180 Output Total 1800 1600 Balance -1204 -1600 180 Weight 97 kg 94.4 kg Intake: Oral 596 180 Output: Urine 1800 1600 - Labs CBC & Chem 7: 11/28/16 06:34 11/28/16 06:29 Labs: Abnormal Lab Results - Last 24 Hours (Table) 11/27/16 11/27/16 11/27/16 Range/Units 11:33 16:23 20:47 RBC (4.30-5.90) m/uL Hgb (13.0-17.5) gm/dL Hct (39.0-53.0) % Plt Count (150-450) k/uL Lymphocytes # (1.0-4.8) k/uL BUN (9-20) mg/dL Creatinine (0.66-1.25) mg/dL Glucose (74-99) mg/dL POC Glucose (mg/dL) 250 H 291 H 303 H (75-99) mg/dL Calcium (8.4-10.2) mg/dL AST (17-59) U/L Total Protein (6.3-8.2) g/dL 11/28/16 11/28/16 11/28/16 Range/Units 05:36 06:29 06:34 RBC 4.15 L (4.30-5.90) m/uL Hgb 11.6 L (13.0-17.5) gm/dL Hct 35.8 L (39.0-53.0) % Plt Count 139 L (150-450) k/uL Lymphocytes # 0.6 L (1.0-4.8) k/uL BUN 109 H* (9-20) mg/dL Creatinine 2.82 H (0.66-1.25) mg/dL Glucose 138 H (74-99) mg/dL POC Glucose (mg/dL) 147 H (75-99) mg/dL Calcium 8.3 L (8.4-10.2) mg/dL AST 15 L (17-59) U/L Total Protein 5.7 L (6.3-8.2) g/dL Assessment and Plan Plan: Assessment: #1. Nonoliguric acute kidney injury secondary to cardiorenal syndrome. Creatinine improving and is down to 2.8 this morning. #2. History of end-stage renal disease status post donor renal allograft from 2010 at [facility]. Etiology was cyclosporine toxicity. #3. 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 Patient underwent a renal biopsy in November 2016 which revealed borderline acute cellular rejection that was treated with IV steroids. The biopsy also revealed diabetic kidney changes along with moderate arteriosclerosis and secondary FSGS. #4. Volume overload. Improving. #5. Systolic CHF ejection fraction of 40%. #6. Insulin-dependent diabetes mellitus. #7. Hypertension with chronic kidney disease. Better controlled. #8. Chronic kidney disease mineral bone disease maintained on calcitriol. Plan: Continue IV Lasix 40 mg 3 times daily for 1 more day. He can be transitioned over to oral diuretics starting tomorrow. Continue with Prograf 3 mg in the morning and 4 mg in the evening along with CellCept 500 mg twice daily and prednisone 10 mg daily. Avoid nephrotoxic agents and hypotensive episodes. Repeat electrolytes in the morning. await Prograf level. Target level is 8.
[2016-11-28 11:32] LABS: Glucose,Whole Blood 214 mg/dL (75-99)
--- NOTE | 2016-11-28 11:32 | ECHOF ---
Referral Reason:chf MEASUREMENTS -------- HEIGHT: 175.3 cm WEIGHT: 96.6 kg BP: 177/80 RVIDd: 3.4 cm (< 3.3) IVSd: 1.5 cm (0.6 - 1.1) LVIDd: 5.2 cm (3.9 - 5.3) LVPWd: 1.5 cm (0.6 - 1.1) IVSs: 1.7 cm LVIDs: 4.0 cm LVPWs: 1.8 cm LA Diam: 5.1 cm (2.7 - 3.8) LAESV Index (A-L): 50.58 ml/m Ao Diam: 3.2 cm (2.0 - 3.7) AV Cusp: 2.3 cm (1.5 - 2.6) MV EXCURSION: 21.518 mm (> 18.000) MV EF SLOPE: 88 mm/s (70 - 150) EPSS: 1.1 cm AR PHT: 394 ms RAP: 15.00 mmHg RVSP: 53.76 mmHg FINDINGS -------- This was a technically good study. The left ventricular size is normal. There is moderate concentric left ventricular hypertrophy. Overall left ventricular systolic function is moderately impaired with, an EF between 35 - 40 %. The right ventricle is mildly enlarged. LA is severely dilated >40 ml/m2 The right atrium is normal in size. Aortic valve is trileaflet and is mildly thickened. There is mild aortic regurgitation. The mitral valve leaflets are mildly thickened. Mild mitral annular calcification present. Jvriikra-vz-nsxism mitral regurgitation is present. Mild tricuspid regurgitation present. There is moderate pulmonary hypertension. The right ventricular systolic pressure, as measured by Doppler, is 53.76mmHg. The pulmonic valve is normal. The aortic root size is normal. The inferior vena cava is dilated with poor inspiratory collapse which is consistent with estimated right atrial pressure of 15 mmHg. CONCLUSIONS -------- 1. This was a technically good study. 2. Mild mitral annular calcification present. 3. Vzvcvifa-kt-wipwfo mitral regurgitation is present. 4. Mild tricuspid regurgitation present. 5. There is moderate pulmonary hypertension. 6. The right ventricular systolic pressure, as measured by Doppler, is 53.76mmHg. 7. The pulmonic valve is normal. 8. The aortic root size is normal. 9. The inferior vena cava is dilated with poor inspiratory collapse which is consistent with estimated right atrial pressure of 15 mmHg. 10. The left ventricular size is normal. 11. There is moderate concentric left ventricular hypertrophy. 12. The right ventricle is mildly enlarged. 13. LA is severely dilated >40 ml/m2 14. The right atrium is normal in size. 15. Aortic valve is trileaflet and is mildly thickened. 16. There is mild aortic regurgitation. 17. The mitral valve leaflets are mildly thickened. CORRECTIONAL CLASSIFICATION COUNSELOR: Janie Del Toro RDCS
--- NOTE | 2016-11-28 12:18 | P.PN ---
Subjective Principal diagnosis: Acute systolic congestive heart failure exacerbation Patient is feeling better he has less shortness of breath and less swelling in his legs Denies any new complaints Objective - Vital Signs Vital signs: Vital Signs Temp 97.1 F L 11/28/16 04:00 Pulse 76 11/28/16 11:14 Resp 18 11/28/16 11:14 BP 149/85 11/28/16 11:14 Pulse Ox 99 11/28/16 11:14 Intake & Output 11/27/16 11/28/16 11/28/16 18:59 06:59 18:59 Intake Total 596 180 Output Total 1800 1600 0 Balance -1204 -1600 180 Weight 97 kg 94.4 kg Intake: Oral 596 180 Output: Urine 1800 1600 0 - Exam In general patient is alert and oriented 3 in no apparent distress HEENT head normocephalic and atraumatic Neck is supple no JVD no goiter no lymphadenopathy Chest exam reveals a few scattered crackles no wheezing Cardiac exam reveals regular heart sounds no gallops no murmurs Abdomen is soft nontender no organomegaly Extremity exam reveals 2+ edema, there is large superficial ulcers on both pretibial area of the largest on the right no cyanosis or clubbing Neurological examination reveals no gross focal deficit - Labs CBC & Chem 7: 11/28/16 06:34 11/28/16 06:29 Labs: Abnormal Lab Results - Last 24 Hours (Table) 11/27/16 11/27/16 11/28/16 Range/Units 16:23 20:47 05:36 RBC (4.30-5.90) m/uL Hgb (13.0-17.5) gm/dL Hct (39.0-53.0) % Plt Count (150-450) k/uL Lymphocytes # (1.0-4.8) k/uL BUN (9-20) mg/dL Creatinine (0.66-1.25) mg/dL Glucose (74-99) mg/dL POC Glucose (mg/dL) 291 H 303 H 147 H (75-99) mg/dL Calcium (8.4-10.2) mg/dL AST (17-59) U/L Total Protein (6.3-8.2) g/dL 11/28/16 11/28/16 11/28/16 Range/Units 06:29 06:34 11:31 RBC 4.15 L (4.30-5.90) m/uL Hgb 11.6 L (13.0-17.5) gm/dL Hct 35.8 L (39.0-53.0) % Plt Count 139 L (150-450) k/uL Lymphocytes # 0.6 L (1.0-4.8) k/uL BUN 109 H* (9-20) mg/dL Creatinine 2.82 H (0.66-1.25) mg/dL Glucose 138 H (74-99) mg/dL POC Glucose (mg/dL) 214 H (75-99) mg/dL Calcium 8.3 L (8.4-10.2) mg/dL AST 15 L (17-59) U/L Total Protein 5.7 L (6.3-8.2) g/dL Assessment and Plan Plan: #1 acute systolic congestive heart failure exacerbation echo cardiogram results revealed ejection fraction of 40% done few days ago at the [facility] #2 fluid overload #3 end-stage renal disease with history of kidney transplant was worsening kidney function over the last year #4 insulin-dependent diabetes mellitus, with suboptimal control with check A1c and adjust insulin as needed #5 underlying history of hypertension #6 underlying history of hyperlipidemia #7 bilateral superficial ulceration in both pretibial areas At this time home medication were ordered Will hold oral Lasix and start with IV Lasix 40 mg every 8 hours Will check daily weights and strict I and O Cardiology consultation and nephrology consultation were initiated Possible switch to oral Lasix tomorrow, if stable patient can be discharged to home tomorrow
--- NOTE | 2016-11-28 12:53 | P.PN ---
Subjective Principal diagnosis: CHF This is a 71-year-old gentleman who follows with Dr. Pauline Nava in the office. He has known history of liver and kidney transplant, history of coronary artery disease with prior stent placement approximately 7 years ago, hyperlipidemia, chronic persistent atrial fibrillation hypertension, diabetes, he is a nonsmoker. was at the [facility] undergoing a kidney biopsy, he was recommended to stay in the hospital because of significant fluid overload, however the patient decided to come back to [place] and be admitted to [facility]. For this reason he came to the hospital to be admitted. Chest x- ray revealed mild congestive cardiac failure, patient was initiated on IV Lasix and has diuresed well through the night last night. Today 2.8, BUN 109. Overall the patient is feeling significantly better. He was also seen by nephrology today and recommended to continue IV Lasix for 24 more hours and from tomorrow switch over to oral diuretics. Objective - Vital Signs Vital signs: Vital Signs Temp 97.1 F L 11/28/16 04:00 Pulse 76 11/28/16 11:14 Resp 18 11/28/16 11:14 BP 149/85 11/28/16 11:14 Pulse Ox 99 11/28/16 11:14 Intake & Output 11/27/16 11/28/16 11/28/16 18:59 06:59 18:59 Intake Total 596 180 Output Total 1800 1600 0 Balance -1204 -1600 180 Weight 97 kg 94.4 kg Intake: Oral 596 180 Output: Urine 1800 1600 0 - Exam PHYSICAL EXAMINATION: HEENT: Head is atraumatic, normocephalic. Pupils equal, round. Neck is supple. There is no elevated jugular venous pressure. HEART EXAMINATION: Heart S1 and S2 irregularly irregular CHEST EXAMINATION: Lungs reveal improvement in air entry to bilateral bases. ABDOMEN: Soft, nontender. Bowel sounds are heard. No organomegaly noted. EXTREMITIES: 2+ peripheral pulses with trace evidence of peripheral edema and no calf tenderness noted. Bilateral Mike wraps in place. NEUROLOGIC patient is awake, alert and oriented -3. - Labs CBC & Chem 7: 11/28/16 06:34 11/28/16 06:29 Labs: Abnormal Lab Results - Last 24 Hours (Table) 11/27/16 11/27/16 11/28/16 Range/Units 16:23 20:47 05:36 RBC (4.30-5.90) m/uL Hgb (13.0-17.5) gm/dL Hct (39.0-53.0) % Plt Count (150-450) k/uL Lymphocytes # (1.0-4.8) k/uL BUN (9-20) mg/dL Creatinine (0.66-1.25) mg/dL Glucose (74-99) mg/dL POC Glucose (mg/dL) 291 H 303 H 147 H (75-99) mg/dL Calcium (8.4-10.2) mg/dL AST (17-59) U/L Total Protein (6.3-8.2) g/dL 11/28/16 11/28/16 11/28/16 Range/Units 06:29 06:34 11:31 RBC 4.15 L (4.30-5.90) m/uL Hgb 11.6 L (13.0-17.5) gm/dL Hct 35.8 L (39.0-53.0) % Plt Count 139 L (150-450) k/uL Lymphocytes # 0.6 L (1.0-4.8) k/uL BUN 109 H* (9-20) mg/dL Creatinine 2.82 H (0.66-1.25) mg/dL Glucose 138 H (74-99) mg/dL POC Glucose (mg/dL) 214 H (75-99) mg/dL Calcium 8.3 L (8.4-10.2) mg/dL AST 15 L (17-59) U/L Total Protein 5.7 L (6.3-8.2) g/dL Assessment and Plan Plan: Assessment and plan #1 systolic congestive heart failure acute on chronic . Ejection fraction by echo 35-40%. #2 chronic persistent atrial fibrillation, on Eliquis for anticoagulation #3 diabetes #4 hypertension uncontrolled #5 hyperlipidemia #6 bilateral ulcerations of both pretibial areas, Mike wrap in place. #7 history of liver transplant #8 end-stage renal disease with hx of kidney transplant, recent biopsy performed at [facility]. Plan Continue current dose of IV Lasix. Check lytes BUN and creatinine in the morning. Switch over to oral diuretics in the morning. DNP note has been reviewed, I agree with a documented findings and plan of care. Patient was seen and examined.
[2016-11-28 16:46] LABS: Glucose,Whole Blood 268 mg/dL (75-99)
[2016-11-28 20:29] LABS: Glucose,Whole Blood 423 mg/dL (75-99)
[2016-11-29 06:02] LABS: Glucose,Whole Blood 145 mg/dL (75-99)
[2016-11-29 06:46] LABS: Basophils % (A) 0 %; CH 28.2; CHCM 32.9; Eosinophils # (A) 0.2 k/uL (0-0.7); Eosinophils % (A) 4 %; HCT 37.7 % (39.0-53.0); HDW 2.71; HGB 12.5 gm/dL (13.0-17.5); Luc % (Auto) 2; Lymphocytes # (A) 0.6 k/uL (1.0-4.8); Lymphocytes % (A) 15 %; MCH 28.6 pg (25.0-35.0); MCHC 33.2 g/dL (31.0-37.0); MCV 86.1 fL (80.0-100.0); Mean Platelet Volume 7.8; Monocytes # (A) 0.3 k/uL (0-1.0); Monocytes % (A) 8 %; Neutrophils # (A) 3.1 k/uL (1.3-7.7); Neutrophils % (A) 72 %; RBC 4.38 m/uL (4.30-5.90); RDW 15.1 % (11.5-15.5); WBC 4.4 k/uL (3.8-10.6); WBC (Perox) 4.41
[2016-11-29] MEDS: INSULIN LISPRO (humaLOG) 300 UNIT/3 ML VIAL SQ SCH ×2 (06:51→12:06)
[2016-11-29 06:56] VITALS: TEMP 97.5
[2016-11-29 06:59] LABS: Calcium 8.5 mg/dL (8.4-10.2); Potassium 4.9 mmol/L (3.5-5.1); Total Bilirubin 0.9 mg/dL (0.2-1.3); Total Protein 5.9 g/dL (6.3-8.2)
[2016-11-29] MEDS: ATORVASTATIN 20 MG TAB PO SCH (08:08)
[2016-11-29] MEDS: FUROSEMIDE 10 MG/ML 4 ML VIAL IV SCH ×2 (08:08)
[2016-11-29] MEDS: TACROLIMUS 1 MG CAP PO SCH (08:08)
[2016-11-29] MEDS: ALLOPURINOL 100 MG TAB PO SCH (08:08)
[2016-11-29] MEDS: hydrALAZINE HCL 25 MG TAB PO SCH (08:08)
[2016-11-29] MEDS: METOPROLOL SUCCINATE (ER) 50 MG TAB.ER.24H PO SCH (08:09)
[2016-11-29] MEDS: SODIUM BICARBONATE TAB 650 MG TAB PO SCH (08:09)
[2016-11-29] MEDS: predniSONE 10 MG TAB PO SCH (08:09)
[2016-11-29] MEDS: ASPIRIN 81 MG CHEW PO SCH (08:10)
[2016-11-29] MEDS: amLODIPine 10 MG TAB PO SCH (08:10)
[2016-11-29] MEDS: APIXABAN 2.5 MG TABLET PO SCH (08:10)
[2016-11-29] MEDS: ISOSORBIDE MONONITRATE ER 60 MG TAB.ER.24H PO SCH (08:10)
[2016-11-29] MEDS: MYCOPHENOLATE MOFETIL 250 MG CAP PO SCH (08:10)
[2016-11-29 08:43] VITALS: RESP 18
[2016-11-29] MEDS: INSULIN NPL/INSULIN LISPRO 100 UNIT/ML 10 ML VIAL (Humalog 75/25) SQ SCH (09:29)
--- NOTE | 2016-11-29 10:28 | P.PN ---
Subjective Patient is seen in follow-up for acute kidney injury and renal transplant management. Patient has chronic kidney disease stage III with baseline creatinine near 1.7-1.8 however recently his creatinine has been closer to 3 area patient underwent a kidney biopsy at [facility] on November 21 which revealed borderline acute cellular rejection as well as diabetic kidney changes. The renal biopsy also revealed moderate arteriosclerosis and secondary FSGS. He was treated with IV steroids at [facility]. 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 Patient presented with fluid overload. He does of systolic CHF with ejection fraction of 40%. He's currently maintained on Lasix 40 mg IV 3 times daily and is diuresing well. His weight is trending down. Edema is improving. Denies chest pain or shortness of breath. Oral intake is good. Vital signs are stable. General: The patient appeared well nourished and normally developed. HEENT: Head exam is unremarkable. Neck is without jugular venous distension. LUNGS: Lungs are clear to auscultation and percussion. Breath sounds decreased. HEART: Rate and Rhythm are regular. First and second heart sounds normal. No murmurs, rubs or gallops. ABDOMEN: Abdominal exam reveals normal bowel sounds. Non-tender and non- distended. No evidence of peritonitis. EXTREMITITES: Trace edema. Objective - Vital Signs Vital signs: Vital Signs Temp 97.5 F L 11/29/16 04:00 Pulse 78 11/29/16 08:00 Resp 18 11/29/16 08:00 BP 149/74 11/29/16 08:00 Pulse Ox 98 11/29/16 08:00 Intake & Output 11/28/16 11/29/16 11/29/16 18:59 06:59 18:59 Intake Total 540 0 300 Output Total 0 1500 Balance 540 -1500 300 Weight 92.9 kg Intake: Oral 540 0 300 Output: Urine 0 1500 - Labs CBC & Chem 7: 11/29/16 06:13 11/29/16 06:13 Labs: Abnormal Lab Results - Last 24 Hours (Table) 11/28/16 11/28/16 11/28/16 Range/Units 11:31 16:44 20:27 Hgb (13.0-17.5) gm/dL Hct (39.0-53.0) % Lymphocytes # (1.0-4.8) k/uL BUN (9-20) mg/dL Creatinine (0.66-1.25) mg/dL Glucose (74-99) mg/dL POC Glucose (mg/dL) 214 H 268 H 423 H (75-99) mg/dL Total Protein (6.3-8.2) g/dL 11/29/16 11/29/16 11/29/16 Range/Units 05:59 06:13 06:13 Hgb 12.5 L (13.0-17.5) gm/dL Hct 37.7 L (39.0-53.0) % Lymphocytes # 0.6 L (1.0-4.8) k/uL BUN 105 H* (9-20) mg/dL Creatinine 2.53 H (0.66-1.25) mg/dL Glucose 140 H (74-99) mg/dL POC Glucose (mg/dL) 145 H (75-99) mg/dL Total Protein 5.9 L (6.3-8.2) g/dL Assessment and Plan Plan: Assessment: #1. Nonoliguric acute kidney injury secondary to cardiorenal syndrome. Creatinine improving and is down to 2.53 this morning. #2. History of end-stage renal disease status post donor renal allograft from 2010 at [facility]. Etiology was cyclosporine toxicity. #3. 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 Patient underwent a renal biopsy in November 2016 which revealed borderline acute cellular rejection that was treated with IV steroids. The biopsy also revealed diabetic kidney changes along with moderate arteriosclerosis and secondary FSGS. #4. Volume overload. Improving. #5. Systolic CHF ejection fraction of 40%. #6. Insulin-dependent diabetes mellitus. #7. Hypertension with chronic kidney disease. Better controlled. #8. Chronic kidney disease mineral bone disease maintained on calcitriol. Plan: Decrease Lasix to 40 mg orally twice daily. Continue with Prograf 3 mg in the morning and 4 mg in the evening along with CellCept 500 mg twice daily and prednisone 10 mg daily. Avoid nephrotoxic agents and hypotensive episodes. Repeat electrolytes in the morning. Await Prograf level. Target level is 8. I advised him to weigh himself daily and to monitor for swelling. He is to double the dose of diuretics if need be. He is to also get a basic metabolic panel checked within 3-4 days of discharge and follow-up as an outpatient in the next 1-2 weeks.
[2016-11-29 11:24] VITALS: BP 139/69; PULSE 79
[2016-11-29 11:43] LABS: Glucose,Whole Blood 182 mg/dL (75-99)
--- NOTE | 2016-11-29 12:56 | P.PN ---
Subjective Principal diagnosis: CHF This is a 71-year-old gentleman who follows with Dr. Pauline Nava in the office. He has known history of liver and kidney transplant, history of coronary artery disease with prior stent placement approximately 7 years ago, hyperlipidemia, chronic persistent atrial fibrillation hypertension, diabetes, he is a nonsmoker. was at the [facility] undergoing a kidney biopsy, he was recommended to stay in the hospital because of significant fluid overload, however the patient decided to come back to [place] and be admitted to [facility]. For this reason he came to the hospital to be admitted. Chest x- ray revealed mild congestive cardiac failure, patient was initiated on IV Lasix and has diuresed well. Creatinine today 2.5, BUN 105. Overall the patient is feeling significantly better. Weight today down 2 kg . The Lasix will be discontinued today, patient will be started on oral diuretics. He may be able to be discharged home to follow-up with Dr. Pauline Nava in the office. Objective - Vital Signs Vital signs: Vital Signs Temp 97.5 F L 11/29/16 04:00 Pulse 79 11/29/16 11:22 Resp 18 11/29/16 11:22 BP 139/69 11/29/16 11:22 Pulse Ox 98 11/29/16 11:22 Intake & Output 11/28/16 11/29/16 11/29/16 18:59 06:59 18:59 Intake Total 540 0 300 Output Total 0 1500 Balance 540 -1500 300 Weight 92.9 kg Intake: Oral 540 0 300 Output: Urine 0 1500 - Exam PHYSICAL EXAMINATION: HEENT: Head is atraumatic, normocephalic. Pupils equal, round. Neck is supple. There is no elevated jugular venous pressure. HEART EXAMINATION: Heart S1 and S2 irregularly irregular CHEST EXAMINATION: Lungs reveal improvement in air entry to bilateral bases. ABDOMEN: Soft, nontender. Bowel sounds are heard. No organomegaly noted. EXTREMITIES: 2+ peripheral pulses with no evidence of peripheral edema and no calf tenderness noted. Bilateral Mike wraps in place. NEUROLOGIC patient is awake, alert and oriented -3. - Labs CBC & Chem 7: 11/29/16 06:13 11/29/16 06:13 Labs: Abnormal Lab Results - Last 24 Hours (Table) 11/28/16 11/28/16 11/29/16 Range/Units 16:44 20:27 05:59 Hgb (13.0-17.5) gm/dL Hct (39.0-53.0) % Lymphocytes # (1.0-4.8) k/uL BUN (9-20) mg/dL Creatinine (0.66-1.25) mg/dL Glucose (74-99) mg/dL POC Glucose (mg/dL) 268 H 423 H 145 H (75-99) mg/dL Total Protein (6.3-8.2) g/dL 11/29/16 11/29/16 11/29/16 Range/Units 06:13 06:13 11:42 Hgb 12.5 L (13.0-17.5) gm/dL Hct 37.7 L (39.0-53.0) % Lymphocytes # 0.6 L (1.0-4.8) k/uL BUN 105 H* (9-20) mg/dL Creatinine 2.53 H (0.66-1.25) mg/dL Glucose 140 H (74-99) mg/dL POC Glucose (mg/dL) 182 H (75-99) mg/dL Total Protein 5.9 L (6.3-8.2) g/dL Assessment and Plan Plan: Assessment and plan #1 systolic congestive heart failure acute on chronic . Ejection fraction by echo 35-40%. #2 chronic persistent atrial fibrillation, on Eliquis for anticoagulation #3 diabetes #4 hypertension uncontrolled #5 hyperlipidemia #6 bilateral ulcerations of both pretibial areas, Mike wrap in place. #7 history of liver transplant #8 end-stage renal disease with hx of kidney transplant, recent biopsy performed at [facility]. Plan Radiology's perspective, patient may be able to be discharged home today. We' ll make him a follow-up appointment to see Dr. EDDIE Nava in the office post discharge. DNP note has been reviewed, I agree with a documented findings and plan of care. Patient was seen and examined.
--- NOTE | 2016-11-29 14:00 | P.DS ---
Providers Date of admission: 11/26/16 15:20 Expected date of discharge: 11/29/16 Attending physician: Jayla Mahmood Consults: 11/26/16 17:15 Consult Physician Routine Consulting Provider: García Wong Consult Reason/Comments: CKD Do you want consulting provider notified?: Yes 11/26/16 17:16 Consult Physician Routine Consulting Provider: Vivienne Nava Consult Reason/Comments: CHF fluid overload Do you want consulting provider notified?: Yes Primary care physician: Jayla [facility] Course: Discharge diagnosis #1 acute systolic congestive heart failure exacerbation echo cardiogram results revealed ejection fraction of 40% done few days ago at the [facility] #2 fluid overload #3 end-stage renal disease with history of kidney transplant was worsening kidney function over the last year #4 insulin-dependent diabetes mellitus, with suboptimal control with A1c 8.0 #5 underlying history of hypertension #6 underlying history of hyperlipidemia #7 bilateral superficial ulceration in both pretibial areas due to fluid blisters blisters from his congestive heart failure. Unable to determine if these ulcerations are related to diabetes. Most likely was related to patient' s fluid overload building up in his skin causing blisters that split open #8 acute kidney injury secondary to cardiorenal syndrome #9 chronic kidney disease disease stage III Hospital course This is a 71-year-old male who presented with worsening shortness of breath and lower extremity edema. Echo had shown an EF of 35-40%. He was started on IV Lasix. Cardiology and nephrology consulted. He has known chronic kidney disease he had some evidence of acute kidney injury due to cardiorenal syndrome. He was followed closely by nephrology during this admission. They' ve adjusted medications and they're currently recommending Lasix 40 mg by mouth twice a day at discharge. Patient follow-up with nephrology for to review Prograf level. Those results are pending at discharge. Patient's shortness of breath and lower extremity edema have improved greatly. He does have some skin irritation and ulcers noted on the lower extremities and will continue the Silvadene cream and to continue to keep legs wrapped. Patient is medically stable for discharge. Please refer to chart for any further details. Patient Condition at Discharge: Stable Plan - Discharge Summary New Discharge Prescriptions: Furosemide [Lasix] 40 mg PO BID #60 tablet hydrALAZINE HCL [Apresoline] 25 mg PO TID #90 tab Isosorbide Mononitrate ER [Imdur] 60 mg PO DAILY #30 tab Discharge Medication List Atorvastatin [Lipitor] 20 mg PO DAILY 08/18/14 [History] Mycophenolate Mofetil [Cellcept] 500 mg PO BID 08/18/14 [History] Tacrolimus [Prograf] 3 mg PO QAM 08/18/14 [History] Aspirin 81 mg PO DAILY 01/18/15 [History] Apixaban [Eliquis] 2.5 mg PO BID #60 tablet 06/16/15 [Rx] Allopurinol [Zyloprim] 100 mg PO DAILY 10/10/16 [History] Calcitriol [Rocaltrol] 0.25 mcg PO LARA 10/10/16 [History] Gabapentin [Neurontin] 100 mg PO TID PRN 10/10/16 [History] Sodium Bicarbonate Tab 650 mg PO BID 10/10/16 [History] amLODIPine [Norvasc] 10 mg PO DAILY 10/10/16 [History] Budesonide [Pulmicort] 0.5 mg INHALATION RT-BID PRN 11/26/16 [History] Ergocalciferol (Vitamin D2) [Vitamin D2] 50,000 unit PO QMONTH 11/26/16 [History ] Insulin NPL/Insulin Lispro [humaLOG MIX 75-25 VIAL] 15 unit SQ HS 11/26/16 [ History] Insulin NPL/Insulin Lispro [humaLOG MIX 75-25 VIAL] 20 unit SQ QAM 11/26/16 [ History] Insulin NPL/Insulin Lispro [humaLOG MIX 75-25 VIAL] See Protocol SQ TID [History] Ipratropium [place] [Atrovent Hfa] 2 puff INHALATION RT-QID PRN 11/26/16 [ History] Metoprolol Succinate (ER) [Toprol XL] 50 mg PO DAILY 11/26/16 [History] Tacrolimus [Prograf] 4 mg PO HS 11/26/16 [History] predniSONE See Taper PO DAILY 11/26/16 [History] Furosemide [Lasix] 40 mg PO BID #60 tablet 11/29/16 [Rx] Isosorbide Mononitrate ER [Imdur] 60 mg PO DAILY #30 tab 11/29/16 [Rx] SILVER sulfADIAZINE CREAM [Silvadene Cream] 1 applic TOPICAL DAILY dose [Rx] hydrALAZINE HCL [Apresoline] 25 mg PO TID #90 tab 11/29/16 [Rx] Follow up Appointment(s)/Referral(s): Vivienne Nava MD [STAFF PHYSICIAN] - 1 Week García Wong DO [STAFF PHYSICIAN] - 1 Week Jayla Mahmood MD [Primary Care Provider] - 1 Week Activity/Diet/Wound Care/Special Instructions: Diet: cardiac, renal, diabetic Activity: as tolerated Discharge Disposition: HOME SELF-CARE
[2016-12-02] MEDS ORDERED: CALCITRIOL 0.25 MCG CAP PO SCH (09:00)
[2016-12-12] MEDS ORDERED: ERGOCALCIFEROL 50,000 UNIT CAP PO SCH (09:00)
== END 2016-11-29 16:17 | disposition home or self-care (01) | DRG 291 ==
LOC: 6SEL 15:20
PROVIDERS: ADMIT Internal Medicine; ATTEND Internal Medicine
DX: I13.2 Hypertensive heart and chronic kidney disease with heart failure and with stage 5 chronic kidney disease, or end stage renal disease (principal); N18.6 End stage renal disease; I50.23 Acute on chronic systolic (congestive) heart failure; N17.9 Acute kidney failure, unspecified; Z94.4 Liver transplant status; I48.1 Persistent atrial fibrillation; L97.811 Non-pressure chronic ulcer of other part of right lower leg limited to breakdown of skin; Z94.0 Kidney transplant status; L97.821 Non-pressure chronic ulcer of other part of left lower leg limited to breakdown of skin; E11.22 Type 2 diabetes mellitus with diabetic chronic kidney disease; J44.9 Chronic obstructive pulmonary disease, unspecified; K21.9 Gastro-esophageal reflux disease without esophagitis; E78.5 Hyperlipidemia, unspecified; F17.200 Nicotine dependence, unspecified, uncomplicated; I25.10 Atherosclerotic heart disease of native coronary artery without angina pectoris; N26.9 Renal sclerosis, unspecified; G40.909 Epilepsy, unspecified, not intractable, without status epilepticus; M19.91 Primary osteoarthritis, unspecified site; Z98.42 Cataract extraction status, left eye; Z98.41 Cataract extraction status, right eye; Z96.1 Presence of intraocular lens; Z91.018 Allergy to other foods; Z88.5 Allergy status to narcotic agent; Z95.5 Presence of coronary angioplasty implant and graft; Z85.72 Personal history of non-Hodgkin lymphomas; Z88.1 Allergy status to other antibiotic agents; Z79.52 Long term (current) use of systemic steroids; Z79.82 Long term (current) use of aspirin; Z79.01 Long term (current) use of anticoagulants; Z79.4 Long term (current) use of insulin; Z79.51 Long term (current) use of inhaled steroids; Z79.899 Other long term (current) drug therapy; Z82.49 Family history of ischemic heart disease and other diseases of the circulatory system; Z83.3 Family history of diabetes mellitus
CPT/HCPCS: 71020; 80048; 80053; 80197; 83036; 83880; 85025; 85027; 93306

== ENCOUNTER → 2016-12-10 | Outpatient (CLI) | payer BC, MEDICARE ==
[2016-12-10 09:47] LABS: CH 27.8; CHCM 31.9; HCT 36.3 % (39.0-53.0); HGB 11.8 gm/dL (13.0-17.5); MCH 28.3 pg (25.0-35.0); MCHC 32.4 g/dL (31.0-37.0); MCV 87.5 fL (80.0-100.0); Mean Platelet Volume 7.8; RBC 4.15 m/uL (4.30-5.90); RDW 15.4 % (11.5-15.5); WBC 4.8 k/uL (3.8-10.6)
[2016-12-10 10:02] LABS: Calcium 8.1 mg/dL (8.4-10.2); Magnesium 1.4 mg/dL (1.6-2.3); Phosphorous 5.5 mg/dL (2.5-4.5); Potassium 5.9 mmol/L (3.5-5.1); Total Bilirubin 0.8 mg/dL (0.2-1.3); Total Protein 5.7 g/dL (6.3-8.2); Uric Acid 8.5 mg/dL (3.5-8.5)
[2016-12-10 10:05] LABS: Appearance,Urine Clear (Clear); Bacteria,Urine Rare /hpf; Bilirubin,Urine Negative (Negative); Glucose,Urine (UA) Negative (Negative); Ketones,Urine Negative (Negative); Leukocyte Esterase,Urine Negative (Negative); Mucus,Urine Rare /hpf; Nitrite,Urine Negative (Negative); PH, Urine 5.5 (5.0-8.0); Particle Count 1128; Protein,Urine 2+ (Negative); RBC,Urine 1 /hpf (0-5); Specific Gravity,Urine 1.008 (1.001-1.035); Squamous Epithelial Cell,Urine <1 /hpf (0-4); UA Billing (MACRO vs. MICRO) MICRO; Urobilinogen,Urine <2.0 mg/dL (<2.0); WBC,Urine 1 /hpf (0-5)
== END | disposition home or self-care (01) ==
LOC: LABWHC1 09:04
PROVIDERS: ATTEND Internal Medicine Nephrology
DX: N39.0 Urinary tract infection, site not specified (principal); E55.9 Vitamin D deficiency, unspecified; M10.9 Gout, unspecified; D64.9 Anemia, unspecified; Z94.0 Kidney transplant status
CPT/HCPCS: 36415; 80053; 80197; 81001; 82306; 83735; 84100; 84550; 85027

== ENCOUNTER → 2016-12-13 | Outpatient (CLI) | payer BC, MEDICARE | END | disposition home or self-care (01) | LOC: LABWHC1 07:39 | PROVIDERS: ATTEND Internal Medicine Nephrology | DX: E87.5 Hyperkalemia (principal) | CPT/HCPCS: 36415; 84132 ==

== ENCOUNTER → 2016-12-15 | Outpatient (CLI) | payer BC, MEDICARE | END | disposition home or self-care (01) | LOC: LABWHC1 08:02 | PROVIDERS: ATTEND Internal Medicine | DX: E55.9 Vitamin D deficiency, unspecified (principal); E21.3 Hyperparathyroidism, unspecified; Z94.0 Kidney transplant status | CPT/HCPCS: 36415; 82306; 83970 ==

== ENCOUNTER → 2016-12-24 | Outpatient (CLI) | payer BC, MEDICARE ==
[2016-12-24 08:02] LABS: CH 28.1; CHCM 32.9; HCT 36.6 % (39.0-53.0); HDW 3.03; HGB 11.8 gm/dL (13.0-17.5); MCH 27.7 pg (25.0-35.0); MCHC 32.3 g/dL (31.0-37.0); MCV 85.8 fL (80.0-100.0); Mean Platelet Volume 7.5; RBC 4.27 m/uL (4.30-5.90); RDW 15.3 % (11.5-15.5); WBC 6.6 k/uL (3.8-10.6)
[2016-12-24 08:27] LABS: Potassium 5.5 mmol/L (3.5-5.1); Total Bilirubin 0.8 mg/dL (0.2-1.3)
== END | disposition home or self-care (01) ==
LOC: LABWHC1 07:05
PROVIDERS: ATTEND Internal Medicine
DX: Z94.4 Liver transplant status (principal); Z79.899 Other long term (current) drug therapy
CPT/HCPCS: 36415; 82247; 82565; 82947; 84075; 84132; 84295; 84450; 84460; 85027

== ENCOUNTER 2016-12-25 15:15 | Inpatient (IN) | payer BC, MEDICARE ==
[2016-12-25] MEDS ORDERED: ACETAMINOPHEN TAB 325 MG TAB PO STA ×2 (15:52→17:55)
[2016-12-25] MEDS ORDERED: ONDANSETRON 4 MG/2 ML VIAL IVP STA (15:53)
[2016-12-25] MEDS ORDERED: HYDROmorphone 1 MG/ML 1 ML SYRINGE IVP STA (15:53)
--- NOTE | 2016-12-25 16:08 | ED ---
ENT HPI - General Chief complaint: ENT Stated complaint: nasal swelling Time Seen by Provider: 12/25/16 15:46 Source: patient, family, RN notes reviewed Mode of arrival: ambulatory Limitations: no limitations - History of Present Illness Initial comments: This a 71-year-old male presents emergency Department with chief complaint of nasal pain and swelling. Patient states felt some irritation over the last week but states that he woke up today with severe pain and swelling. Patient went to his primary care physician's office Dr. Mahmood who sent him over her to be evaluated. Patient did not know that he had a fever but states that he just doesn't feel well and states that he had some vomiting today he denies any abdominal pain this time. Patient states that he's had no history of MRSA or VRE. Patient states she does wear oxygen at nighttime and states he is unable to because of his nasal pain at this time. Patient states he has had some bleeding and states the pain is worse on the left side. - Related Data Home Medications Medication Instructions Recorded Confirmed Atorvastatin [Lipitor] 20 mg PO DAILY 08/18/14 12/25/16 Tacrolimus [Prograf] 3 mg PO QAM 08/18/14 12/25/16 Allopurinol [Zyloprim] 100 mg PO DAILY 10/10/16 12/25/16 Calcitriol [Rocaltrol] 0.25 mcg PO LARA 10/10/16 12/25/16 Gabapentin [Neurontin] 100 mg PO TID PRN 10/10/16 12/25/16 Sodium Bicarbonate Tab 650 mg PO BID 10/10/16 12/25/16 Budesonide [Pulmicort] 0.5 mg INHALATION RT-BID PRN 11/26/16 12/25/16 Ergocalciferol (Vitamin D2) 50,000 unit PO QMONTH 11/26/16 12/25/16 [Vitamin D2] Insulin NPL/Insulin Lispro 15 unit SQ HS 11/26/16 12/25/16 [humaLOG MIX 75-25 VIAL] Insulin NPL/Insulin Lispro 20 unit SQ QAM 11/26/16 12/25/16 [humaLOG MIX 75-25 VIAL] Ipratropium [place] [Atrovent Hfa] 2 puff INHALATION RT-QID PRN 11/26/16 Tacrolimus [Prograf] 4 mg PO HS 11/26/16 12/25/16 Aspirin EC [Ecotrin Low Dose] 81 mg PO DAILY 12/25/16 12/25/16 Metoprolol Tartrate [Lopressor] 50 mg PO HS 12/25/16 12/25/16 Metoprolol Tartrate [Lopressor] 100 mg PO QAM 12/25/16 12/25/16 Mycophenolate Mofetil [Cellcept] 500 mg PO BID 12/25/16 12/25/16 amLODIPine BESYLATE [Norvasc] 10 mg PO DAILY 12/25/16 12/25/16 Previous Rx's Medication Instructions Recorded Apixaban [Eliquis] 2.5 mg PO BID #60 tablet 06/16/15 Furosemide [Lasix] 40 mg PO BID #60 tablet 11/29/16 hydrALAZINE HCL [Apresoline] 25 mg PO TID #90 tab 11/29/16 Allergies Allergy/AdvReac Type Severity Reaction Status Date / Time heaton Allergy Unknown Verified 12/25/16 15:36 codeine Allergy Rash/Hives Verified 12/25/16 16:51 erythromycin base Allergy Swelling Verified 12/25/16 16:51 Review of Systems ROS Statement: Those systems with pertinent positive or pertinent negative responses have been documented in the HPI. ROS Other: All systems not noted in ROS Statement are negative. Past Medical History Past Medical History: Asthma, Cancer, Heart Failure, COPD, Diabetes Mellitus, GERD/Reflux, Hyperlipidemia, Hypertension, Osteoarthritis (OA), Pneumonia, Renal Disease, Seizure Disorder Additional Past Medical History / Comment(s): 06/13/15 Pt presented to [facility] ER with SOB. He is admitted with clinical impression of CHF exacerbation, dyspnea and hyperglycemia, renal failure. 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 History of Any Multi-Drug Resistant Organisms: None Reported Past Surgical History: Heart Catheterization, Heart Catheterization With Stent Additional Past Surgical History / Comment(s): liver transplant 2005 d/t non alcoholic steatohepatits d/t fatty liver, colonoscopy, insertion lt arm fistula( in past had hemodialysis)-kidney implant 2011, lt shoulder sx has pin in place, rt wrist sx with pins, cataract removal and lens implants bilaterally 2013. Past Anesthesia/Blood Transfusion Reactions: No Reported Reaction Date of Last Stent Placement:: 2007 Past Psychological History: No Psychological Hx Reported Smoking Status: Current every day smoker Past Alcohol Use History: None Reported Past Drug Use History: None Reported - Past Family History Father Family Medical History: No Reported History, Cancer, Hypertension Additional Family Medical History / Comment(s): Father in his 80's. Mother Family Medical History: Diabetes Mellitus, Hypertension Additional Family Medical History / Comment(s): Mother in her 80's. General Exam Limitations: no limitations General appearance: alert, in no apparent distress Head exam: Present: atraumatic, normocephalic, normal inspection Eye exam: Present: normal appearance, PERRL, EOMI. Absent: scleral icterus, conjunctival injection, periorbital swelling ENT exam: Present: normal oropharynx, mucous membranes moist, TM's normal bilaterally, normal external ear exam, other (There is a large amount of nasal swelling and erythema noted there is moderate to severe tenderness on the left side of the nose and moderate over the left maxillary sinus there is what appears to be an open sore with some crusting and drainage noted in the left nostril). Absent: normal exam Neck exam: Present: normal inspection, full ROM. Absent: tenderness, meningismus, lymphadenopathy Respiratory exam: Present: normal lung sounds bilaterally. Absent: respiratory distress, wheezes, rales, rhonchi, stridor Cardiovascular Exam: Present: regular rate, normal rhythm, normal heart sounds. Absent: systolic murmur, diastolic murmur, rubs, gallop, clicks Neurological exam: Present: alert, oriented X3, CN II-XII intact Skin exam: Present: warm, dry Course Vital Signs 12/25/16 12/25/16 12/25/16 15:33 16:59 17:52 Temperature 101.0 F H 101.6 F H 101.7 F H Pulse Rate 97 99 63 Respiratory 23 17 18 Rate Blood Pressure 181/81 166/77 159/71 O2 Sat by Pulse 95 94 L 95 Oximetry Medical Decision Making - Lab Data Result diagrams: 12/25/16 16:15 12/25/16 16:15 Lab Results 12/25/16 12/25/16 12/25/16 Range/Units 16:15 16:15 16:15 WBC 9.0 (3.8-10.6) k/uL RBC 4.49 (4.30-5.90) m/uL Hgb 12.5 L (13.0-17.5) gm/dL Hct 39.5 (39.0-53.0) % MCV 87.9 (80.0-100.0) fL MCH 27.9 (25.0-35.0) pg MCHC 31.7 (31.0-37.0) g/dL RDW 15.4 (11.5-15.5) % Plt Count 209 (150-450) k/uL Neutrophils % 89 % Lymphocytes % 4 % Monocytes % 5 % Eosinophils % 0 % Basophils % 0 % Neutrophils # 8.0 H (1.3-7.7) k/uL Lymphocytes # 0.4 L (1.0-4.8) k/uL Monocytes # 0.5 (0-1.0) k/uL Eosinophils # 0.0 (0-0.7) k/uL Basophils # 0.0 (0-0.2) k/uL PT 11.1 (9.0-12.0) sec INR 1.1 (<1.1) APTT 25.6 (22.0-30.0) sec Sodium 134 L (137-145) mmol/L Potassium 5.7 H (3.5-5.1) mmol/L Chloride 106 (98-107) mmol/L Carbon Dioxide 17 L (22-30) mmol/L Anion Gap 11 mmol/L BUN 72 H (9-20) mg/dL Creatinine 2.90 H (0.66-1.25) mg/dL Est GFR (MDRD) Af Amer 26 (>60 ml/min/1.73 sqM) Est GFR (MDRD) Non-Af 22 (>60 ml/min/1.73 sqM) Glucose 364 H (74-99) mg/dL Plasma Lactic Acid Nelson (0.7-2.0) mmol/L Calcium 9.1 (8.4-10.2) mg/dL Total Bilirubin 1.2 (0.2-1.3) mg/dL AST 15 L (17-59) U/L ALT 29 (21-72) U/L Alkaline Phosphatase 109 (38-126) U/L Total Protein 5.5 L (6.3-8.2) g/dL Albumin 3.4 L (3.5-5.0) g/dL Acetone, Qual (Negative) 12/25/16 12/25/16 Range/Units 16:15 16:15 WBC (3.8-10.6) k/uL RBC (4.30-5.90) m/uL Hgb (13.0-17.5) gm/dL Hct (39.0-53.0) % MCV (80.0-100.0) fL MCH (25.0-35.0) pg MCHC (31.0-37.0) g/dL RDW (11.5-15.5) % Plt Count (150-450) k/uL Neutrophils % % Lymphocytes % % Monocytes % % Eosinophils % % Basophils % % Neutrophils # (1.3-7.7) k/uL Lymphocytes # (1.0-4.8) k/uL Monocytes # (0-1.0) k/uL Eosinophils # (0-0.7) k/uL Basophils # (0-0.2) k/uL PT (9.0-12.0) sec INR (<1.1) APTT (22.0-30.0) sec Sodium (137-145) mmol/L Potassium (3.5-5.1) mmol/L Chloride (98-107) mmol/L Carbon Dioxide (22-30) mmol/L Anion Gap mmol/L BUN (9-20) mg/dL Creatinine (0.66-1.25) mg/dL Est GFR (MDRD) Af Amer (>60 ml/min/1.73 sqM) Est GFR (MDRD) Non-Af (>60 ml/min/1.73 sqM) Glucose (74-99) mg/dL Plasma Lactic Acid Nelson 1.7 (0.7-2.0) mmol/L Calcium (8.4-10.2) mg/dL Total Bilirubin (0.2-1.3) mg/dL AST (17-59) U/L ALT (21-72) U/L Alkaline Phosphatase (38-126) U/L Total Protein (6.3-8.2) g/dL Albumin (3.5-5.0) g/dL Acetone, Qual Negative (Negative) Disposition Clinical Impression: Nasal abscess, Hyperglycemia, Renal failure Disposition: ADMITTED IP TO THIS HOSP Condition: Fair Referrals: Jayla Mahmood MD [Primary Care Provider] - 1-2 days
[2016-12-25 16:27] LABS: Basophils % (A) 0 %; CH 28.4; CHCM 32.4; Eosinophils % (A) 0 %; HCT 39.5 % (39.0-53.0); HDW 2.84; HGB 12.5 gm/dL (13.0-17.5); Luc # (Auto) 0.14; Luc % (Auto) 2; Lymphocytes # (A) 0.4 k/uL (1.0-4.8); Lymphocytes % (A) 4 %; MCH 27.9 pg (25.0-35.0); MCHC 31.7 g/dL (31.0-37.0); MCV 87.9 fL (80.0-100.0); Mean Platelet Volume 7.8; Monocytes # (A) 0.5 k/uL (0-1.0); Monocytes % (A) 5 %; Neutrophils % (A) 89 %; RBC 4.49 m/uL (4.30-5.90); RDW 15.4 % (11.5-15.5); WBC (Perox) 9.51
[2016-12-25 16:34] LABS: INR 1.1 (<1.1); Partial Thromboplastin Time 25.6 sec (22.0-30.0); Prothrombin Time 11.1 sec (9.0-12.0)
[2016-12-25 16:36] LABS: Calcium 9.1 mg/dL (8.4-10.2); Potassium 5.7 mmol/L (3.5-5.1); Total Bilirubin 1.2 mg/dL (0.2-1.3); Total Protein 5.5 g/dL (6.3-8.2)
[2016-12-25] MEDS ORDERED: SODIUM CHLORIDE 0.9% 1,000 ML IV ONE (17:29)
[2016-12-25] MEDS ORDERED: AMPICILLIN-SULBACTAM 3 GM in SODIUM CHLORIDE 0.9% 100 ML IVPB STA (17:55)
[2016-12-25] MEDS ORDERED: IV VANCOMYCIN PER PHARMACY 1 EACH MISC MISCELLANE PRN (17:56)
[2016-12-25] MEDS ORDERED: ONDANSETRON 4 MG/2 ML VIAL IVP PRN (17:58)
[2016-12-25] MEDS ORDERED: VANCOMYCIN 1,500 MG in SODIUM CHLORIDE 0.9% 250 ML IVPB STA (17:58)
[2016-12-25] MEDS ORDERED: NALOXONE 0.4 MG/ML 1 ML VIAL IV PRN (17:58)
[2016-12-25] MEDS: ACETAMINOPHEN TAB 325 MG TAB PO PRN (20:23)
[2016-12-25] MEDS ORDERED: GABAPENTIN 100 MG CAP PO PRN (21:51)
[2016-12-25] MEDS ORDERED: BUDESONIDE 0.5 MG/2 ML NEBU INHALATION PRN (21:51)
[2016-12-25 21:54] LABS: Glucose,Whole Blood 404 mg/dL (75-99)
[2016-12-25 21:56] LABS: Hemoglobin A1C 8.3 % (4.2-6.1)
[2016-12-25] MEDS: HYDROmorphone 1 MG/ML 1 ML SYRINGE IV PRN (22:12)
[2016-12-25] MEDS: INSULIN LISPRO (humaLOG) 300 UNIT/3 ML VIAL SQ SCH (22:12)
[2016-12-25] MEDS: APIXABAN 2.5 MG TABLET PO SCH (23:06)
[2016-12-25] MEDS: hydrALAZINE HCL 25 MG TAB PO SCH (23:06)
[2016-12-25] MEDS: METOPROLOL TARTRATE 50 MG TAB PO SCH (23:06)
[2016-12-25] MEDS: TACROLIMUS 1 MG CAP PO SCH (23:07)
[2016-12-26] MEDS: HYDROmorphone 1 MG/ML 1 ML SYRINGE IV PRN ×4 (01:06→17:04)
[2016-12-26 01:16] LABS: Glucose,Whole Blood 345 mg/dL (75-99)
[2016-12-26] MEDS: INSULIN NPL/INSULIN LISPRO 100 UNIT/ML 10 ML VIAL (Humalog 75/25) SQ SCH ×3 (01:22→21:24)
[2016-12-26] MEDS: AMPICILLIN-SULBACTAM 3 GM in SODIUM CHLORIDE 0.9% 100 ML IVPB SCH ×3 (01:28→15:10)
[2016-12-26 07:41] LABS: Glucose,Whole Blood 277 mg/dL (75-99)
[2016-12-26] MEDS: INSULIN LISPRO (humaLOG) 300 UNIT/3 ML VIAL SQ SCH ×4 (08:00→21:00)
[2016-12-26] MEDS: TACROLIMUS 1 MG CAP PO SCH ×2 (08:08→20:59)
[2016-12-26] MEDS: hydrALAZINE HCL 25 MG TAB PO SCH ×3 (08:08→20:59)
[2016-12-26] MEDS: METOPROLOL TARTRATE 50 MG TAB PO SCH ×2 (08:09→20:59)
[2016-12-26] MEDS: FUROSEMIDE 40 MG TAB PO SCH ×2 (08:09→20:59)
[2016-12-26] MEDS: amLODIPine 10 MG TAB PO SCH (08:09)
[2016-12-26] MEDS: APIXABAN 2.5 MG TABLET PO SCH ×2 (08:09→20:59)
[2016-12-26] MEDS: MYCOPHENOLATE MOFETIL 500 MG TAB PO SCH ×2 (08:10→21:00)
[2016-12-26] MEDS: ALLOPURINOL 100 MG TAB PO SCH (08:10)
[2016-12-26] MEDS: SODIUM BICARBONATE TAB 650 MG TAB PO SCH ×2 (08:10→20:59)
[2016-12-26] MEDS: ATORVASTATIN 20 MG TAB PO SCH (08:10)
[2016-12-26 08:36] LABS: Calcium 8.5 mg/dL (8.4-10.2); Potassium 5.4 mmol/L (3.5-5.1); Total Protein 5.2 g/dL (6.3-8.2)
--- NOTE | 2016-12-26 11:11 | CONS ---
DATE OF CONSULTATION: REASON FOR CONSULTATION: Nasal abscess. HISTORY: This is a 71-year-old white male with multiple medical problems who for the last 4 days has had increasingly more swollen and sore nose. He was admitted for this. He does wear oxygen at nighttime for COPD. He has had some little bit of bleeding inside the left side of the nose. His blood sugars are not well controlled, typically in the 360 range even at home. PAST MEDICAL HISTORY: Positive for asthma, heart failure, COPD, diabetes, pneumonia, renal disease, seizure disorder. PAST SURGICAL HISTORY: Heart catheterization with stent, liver transplant, coloscopy, left arm fistula, left shoulder surgery, wrist surgery, cataract removal. FAMILY HISTORY: Noncontributory. MEDICATIONS: Vitamin D, insulin, Atrovent, Prograf, aspirin, Lopressor, CellCept, Norvasc. ALLERGIES: BERNAL, CODEINE, ERYTHROMYCIN. REVIEW OF SYSTEMS: Noncontributory other than as above. PHYSICAL EXAMINATION: This is a well-developed adult white male in no acute distress. Vital signs shows he is afebrile this morning, although did have fever yesterday. HEENT: Head normocephalic and atraumatic. Ears bilateral canals are clear. Tympanic membranes unremarkable and mobile. NOSE: Diffusely externally has erythema. There is some mild "pointing over the left nasal dorsum". Intranasally, there is mild to moderate swelling especially in the left nasal ala intranasally there is some " pointing" with erythema. Oropharynx shows no abnormal mass or lesions. Neck is supple without adenopathy or tenderness. ASSESSMENT: Left nasal cellulitis and abscess. PLAN: Excision and drainage of left nasal abscess, which was performed, see procedure note. Continue empiric antibiotics presumptive MRSA and he is on vancomycin. Would certainly consider infectious disease consultation due to the type of infection as well as his liver transplant history and therefore immunocompromised. I did perform culture and therefore primary service can follow culture and treat appropriately. If there are questions or concerns please feel free to contact me.
--- NOTE | 2016-12-26 11:18 | PCN ---
DATE OF PROCEDURE: PREOPERATIVE DIAGNOSIS: Left nasal abscess/cellulitis. POSTOPERATIVE DIAGNOSIS: Left nasal abscess/cellulitis. PROCEDURE: Incision and drainage left nasal abscess. ANESTHESIA: Local. ESTIMATED BLOOD LOSS: Minimal, less than 2 mL. COMPLICATIONS: None. FINDINGS: A small nasal abscess over the left nasal dorsum as well as intranasally on the left. PROCEDURE: The patient was in his hospital bed. Informed consent was obtained with indications, alternatives, potential risk and benefits ( ) the patient with the risks including but not inclusive of the risks of local anesthesia, bleeding, infection, need for further procedures in the future, scarring. Patient understands these risks and agreed to proceed. Patient was prepped and draped in the usual aseptic fashion. Then 1% lidocaine with 1:100,000 epinephrine was infused intranasally, left intercartilaginous area as well as externally of left nasal dorsum. This was allowed to work for 7 minutes for vasoconstrictive effect. An incision was made over the abscess externally approximately 1 cm and some mild purulence was obtained although there was only a small abscess cavity, and this was cultured. Again, another 1 cm incision was made intranasally, left intracartilaginous incision and there was only very small amount of purulence in this area. Bleeding was controlled with local pressure and spontaneously. The patient had dressings placed. Patient tolerated this well. No complications. Culture sent by the nursing staff.
[2016-12-26] MEDS ORDERED: VANCOMYCIN 1,500 MG in SODIUM CHLORIDE 0.9% 250 ML IVPB ONE (12:00)
[2016-12-26 12:06] LABS: Glucose,Whole Blood 174 mg/dL (75-99)
[2016-12-26 17:49] LABS: Glucose,Whole Blood 149 mg/dL (75-99)
--- NOTE | 2016-12-26 17:52 | P.HPIM ---
History of Present Illness H&P Date: 12/26/16 Chief Complaint: Nose abscess Patient is a 71-year-old male with multiple medical problems who presented to emergency room was a chief complaint of pain and swelling in his nose with erythema and tenderness in the area, patient had fever of 101 in the emergency room he was started on IV Unasyn and IV vancomycin and was admitted to medical floor consultation for ENT was initiated for possible abscess drainage. Patient has a prolonged past medical history including history of chronic renal failure patient has a history of kidney transplant and liver transplant. He also has history of insulin-dependent diabetes mellitus and history of congestive heart failure. Past Medical History Past Medical History: Asthma, Cancer, Heart Failure, COPD, Diabetes Mellitus, GERD/Reflux, Hyperlipidemia, Hypertension, Osteoarthritis (OA), Pneumonia, Renal Disease, Seizure Disorder Additional Past Medical History / Comment(s): 06/13/15 Pt presented to [facility] ER with SOB. He is admitted with clinical impression of CHF exacerbation, dyspnea and hyperglycemia, renal failure. 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 History of Any Multi-Drug Resistant Organisms: None Reported Past Surgical History: Heart Catheterization, Heart Catheterization With Stent Additional Past Surgical History / Comment(s): liver transplant 2005 d/t non alcoholic steatohepatits d/t fatty liver, colonoscopy, insertion lt arm fistula( in past had hemodialysis)-kidney implant 2011, lt shoulder sx has pin in place, rt wrist sx with pins, cataract removal and lens implants bilaterally 2013. Past Anesthesia/Blood Transfusion Reactions: No Reported Reaction Date of Last Stent Placement:: 2007 Past Psychological History: No Psychological Hx Reported Additional Psychological History / Comment(s): Pt resides at home with his spouse. He is independent. He uses no assistive device. He has no home care agency use. He drives. Smoking Status: Current every day smoker Past Alcohol Use History: None Reported Past Drug Use History: None Reported - Past Family History Father Family Medical History: No Reported History, Cancer, Hypertension Additional Family Medical History / Comment(s): Father in his 80's. Mother Family Medical History: Diabetes Mellitus, Hypertension Additional Family Medical History / Comment(s): Mother in her 80's. Medications and Allergies Home Medications Medication Instructions Recorded Confirmed Type Atorvastatin [Lipitor] 20 mg PO DAILY 08/18/14 12/25/16 History Tacrolimus [Prograf] 3 mg PO QAM 08/18/14 12/25/16 History Allopurinol [Zyloprim] 100 mg PO DAILY 10/10/16 12/25/16 History Calcitriol [Rocaltrol] 0.25 mcg PO LARA 10/10/16 12/25/16 History Gabapentin [Neurontin] 100 mg PO TID PRN 10/10/16 12/25/16 History Sodium Bicarbonate Tab 650 mg PO BID 10/10/16 12/25/16 History Budesonide [Pulmicort] 0.5 mg INHALATION RT-BID PRN 11/26/16 12/25/16 History Ergocalciferol (Vitamin D2) 50,000 unit PO QMONTH 11/26/16 12/25/16 History [Vitamin D2] Insulin NPL/Insulin Lispro 15 unit SQ HS 11/26/16 12/25/16 History [humaLOG MIX 75-25 VIAL] Insulin NPL/Insulin Lispro 20 unit SQ QAM 11/26/16 12/25/16 History [humaLOG MIX 75-25 VIAL] Ipratropium [place] [Atrovent Hfa] 2 puff INHALATION RT-QID PRN 11/26/16 History Tacrolimus [Prograf] 4 mg PO HS 11/26/16 12/25/16 History Aspirin EC [Ecotrin Low Dose] 81 mg PO DAILY 12/25/16 12/25/16 History Metoprolol Tartrate [Lopressor] 50 mg PO HS 12/25/16 12/25/16 History Metoprolol Tartrate [Lopressor] 100 mg PO QAM 12/25/16 12/25/16 History Mycophenolate Mofetil [Cellcept] 500 mg PO BID 12/25/16 12/25/16 History amLODIPine BESYLATE [Norvasc] 10 mg PO DAILY 12/25/16 12/25/16 History Allergies Allergy/AdvReac Type Severity Reaction Status Date / Time heaton Allergy Unknown Verified 12/25/16 15:36 codeine Allergy Rash/Hives Verified 12/25/16 16:51 erythromycin base Allergy Swelling Verified 12/25/16 16:51 Physical Exam Vitals: Vital Signs Temp Pulse Pulse Resp BP BP Pulse Ox 12/26/16 16:00 87 20 12/26/16 15:00 98.6 F 87 20 110/55 92 L 12/26/16 10:43 100.4 F H 12/26/16 08:00 99 22 12/26/16 07:00 100.3 F H 99 22 147/64 91 L 12/25/16 23:00 97.9 F 68 16 119/51 96 12/25/16 19:00 100.8 F H 94 18 158/72 92 L 12/25/16 17:52 101.7 F H 63 18 159/71 95 Intake and Output 12/26/16 12/26/16 12/26/16 06:59 14:59 22:59 Intake Total 200 350 Balance 200 350 Intake: IV 350 Ampicillin-Sulbactam 3 gm 100 In Sodium Chloride 0.9% 100 ml @ 100 mls/hr IVPB Q8HR [facility] Rx#:[id number] Vancomycin 1,500 mg In 250 Sodium Chloride 0.9% 250 ml @ 125 mls/hr IVPB ONCE STA Rx#:[id number] Oral 200 Other: # Voids 1 In general patient is alert and oriented 3 in no apparent distress HEENT reveals erythema and swelling with tenderness to the left side of the nose Neck is supple no JVD no goiter no lymphadenopathy Chest exam reveals a few scattered rhonchi no wheezing Cardiac exam reveals regular heart sounds S1 and S2 no gallops no murmurs Abdomen is soft nontender no organomegaly with normal bowel sounds Extremity exam reveals no edema no cyanosis or clubbing Results CBC & Chem 7: 12/25/16 16:15 12/26/16 07:37 Labs: Abnormal Lab Results - Last 24 Hours (Table) 12/25/16 12/25/16 12/26/16 Range/Units 16:15 21:40 01:13 Sodium (137-145) mmol/L Potassium (3.5-5.1) mmol/L Carbon Dioxide (22-30) mmol/L BUN (9-20) mg/dL Creatinine (0.66-1.25) mg/dL Glucose (74-99) mg/dL POC Glucose (mg/dL) 404 H 345 H (75-99) mg/dL Hemoglobin A1c 8.3 H (4.2-6.1) % AST (17-59) U/L Total Protein (6.3-8.2) g/dL Albumin (3.5-5.0) g/dL 12/26/16 12/26/16 12/26/16 Range/Units 07:37 07:38 11:48 Sodium 134 L (137-145) mmol/L Potassium 5.4 H (3.5-5.1) mmol/L Carbon Dioxide 17 L (22-30) mmol/L BUN 73 H (9-20) mg/dL Creatinine 2.78 H (0.66-1.25) mg/dL Glucose 272 H (74-99) mg/dL POC Glucose (mg/dL) 277 H 174 H (75-99) mg/dL Hemoglobin A1c (4.2-6.1) % AST 14 L (17-59) U/L Total Protein 5.2 L (6.3-8.2) g/dL Albumin 3.0 L (3.5-5.0) g/dL Microbiology - Last 24 Hours (Table) 12/26/16 07:24 Nasal Culture - Preliminary Nasal Swab Thrombosis Risk Factor Assmnt - Choose All That Apply Any of the Below Risk Factors Present?: Yes Each Factor Represents 1 point: Abnormal pulmonary function (COPD), Obesity ( BMI >25) Other Risk Factors: Yes Each Risk Factor Represents 2 Points: Age 61-74 years Other congenital or acquired thrombophilia - If yes, enter type in comment: No Thrombosis Risk Factor Assessment Total Risk Factor Score: 4 Thrombosis Risk Factor Assessment Level: Moderate Risk Assessment and Plan Plan: #1 abscess to the left side of the nose, patient is admitted to medical floor he was started on IV antibiotic Unasyn and vancomycin, ENT consultation was requested for possible drainage of abscess. #2 underlying history of insulin-dependent diabetes mellitus millimeters will increase insulin dose gradually due to uncontrolled glucose levels #3 history of kidney and liver transplant stable at this time continue was current medications #4 underlying history of congestive heart failure stable at this time #5 underlying history of chronic renal failure will monitor kidney function daily #6 underlying history of chronic obstructive pulmonary disease stable at this time Will follow closely continue was Unasyn and vancomycin until culture result is available Will add consultation for Dr. Loya
[2016-12-26 20:36] LABS: Glucose,Whole Blood 173 mg/dL (75-99)
[2016-12-26] MEDS: PIPERACILLIN-TAZOBACTAM 3.375 GM in DEXTROSE/WATER 1 50ML.BAG IVPB SCH (23:32)
[2016-12-27] MEDS: HYDROmorphone 1 MG/ML 1 ML SYRINGE IV PRN (06:24)
[2016-12-27 07:16] LABS: Glucose,Whole Blood 98 mg/dL (75-99)
[2016-12-27] MEDS: INSULIN LISPRO (humaLOG) 300 UNIT/3 ML VIAL SQ SCH ×4 (07:25→22:01)
[2016-12-27] MEDS: SODIUM BICARBONATE TAB 650 MG TAB PO SCH ×2 (08:04→22:03)
[2016-12-27] MEDS: METOPROLOL TARTRATE 50 MG TAB PO SCH ×2 (08:04→22:04)
[2016-12-27] MEDS: PIPERACILLIN-TAZOBACTAM 3.375 GM in DEXTROSE/WATER 1 50ML.BAG IVPB SCH ×2 (08:04→15:08)
[2016-12-27] MEDS: TACROLIMUS 1 MG CAP PO SCH ×2 (08:05→22:03)
[2016-12-27] MEDS: ALLOPURINOL 100 MG TAB PO SCH (08:05)
[2016-12-27] MEDS: MYCOPHENOLATE MOFETIL 500 MG TAB PO SCH ×2 (08:05→22:03)
[2016-12-27] MEDS: FUROSEMIDE 40 MG TAB PO SCH ×2 (08:05→22:03)
[2016-12-27] MEDS: amLODIPine 10 MG TAB PO SCH (08:05)
[2016-12-27] MEDS: hydrALAZINE HCL 25 MG TAB PO SCH ×3 (08:05→22:03)
[2016-12-27] MEDS: APIXABAN 2.5 MG TABLET PO SCH ×2 (08:05→22:04)
[2016-12-27] MEDS: ATORVASTATIN 20 MG TAB PO SCH (08:06)
[2016-12-27] MEDS: INSULIN NPL/INSULIN LISPRO 100 UNIT/ML 10 ML VIAL (Humalog 75/25) SQ SCH ×2 (08:10→22:14)
[2016-12-27 09:36] LABS: Calcium 8.2 mg/dL (8.4-10.2); Potassium 4.8 mmol/L (3.5-5.1)
[2016-12-27 09:41] LABS: Basophils % (A) 0 %; CH 27.5; Eosinophils # (A) 0.1 k/uL (0-0.7); Eosinophils % (A) 1 %; HCT 34.4 % (39.0-53.0); HDW 2.95; HGB 11.3 gm/dL (13.0-17.5); Hypochromasia Slight; Luc # (Auto) 0.19; Luc % (Auto) 3; Lymphocytes # (A) 0.5 k/uL (1.0-4.8); Lymphocytes % (A) 7 %; MCH 28.4 pg (25.0-35.0); MCHC 32.9 g/dL (31.0-37.0); MCV 86.5 fL (80.0-100.0); Mean Platelet Volume 7.6; Monocytes # (A) 0.4 k/uL (0-1.0); Monocytes % (A) 6 %; Neutrophils # (A) 6.2 k/uL (1.3-7.7); Neutrophils % (A) 84 %; RBC 3.97 m/uL (4.30-5.90); WBC 7.4 k/uL (3.8-10.6); WBC (Perox) 8.02
--- NOTE | 2016-12-27 10:15 | CDI ---
In responding to this query, please exercise your independent professional judgment. The [facility] Coding Staff and Clinical Documentation Specialists appreciate your assistance in clarifying documentation, maintaining compliance with coding guidelines, accurately documenting patients condition and capturing severity of illness. The fact that a question is asked does not imply that any particular answer is desired or expected. Communication forms are a method of clarifying documentation and are not made part of the Legal Health Record. Thank you in advance for your clarification. Last Revision, May 2015 Michelle Christie [address] [place] [address] Documentation Clarification Form Date: 12/27/2016 9:54:00 AM From: Bella Hammer RN, CDS Admit Date: 12/25/2016 6:11:00 PM Patient Name: Chester Martins Visit Number: [id number] Dr. Jayla Mahmood, 71 year old patient admitted for nasal abscess and cellulitis and underwent and Incision and Drainage of abscess. Patient has a history of Kidney transplant and Liver transplant History/Risk Factors : Kidney and Liver transplant, Systolic CHF, DM2, Clinical Indicators : GFR range since December 11/2016: 25-32, Current GFR 21 Treatment: Monitor kidney function daily, Comprehensive Metabolic Panel ordered daily Patients medications include: Cellcept, Prograf In order to capture the severity of condition, please clarify if the condition signifies: CKD Stage 1 (GFR > 90) CKD Stage 2 (GFR 60-89) CKD Stage 3 (GFR 30-59) CKD Stage 4 (GFR 15-29) CKD Stage 5 (GFR <15) ESRD Unable to determine Other condition, please specify Please document in your progress notes and discharge summary in order to capture severity of illness and risk of mortality. Include clinical findings that support your diagnosis. FYI: Press F11 to launch patient chart. Place X here if this finding has no clinical significance, is not applicable or if you are not able to provide any additional documentation. MYNOR
--- NOTE | 2016-12-27 11:25 | P.PN ---
Subjective Patient is a 71-year-old male with multiple medical problems who presented to emergency room was a chief complaint of pain and swelling in his nose with erythema and tenderness in the area, patient had fever of 101 in the emergency room he was started on IV Unasyn and IV vancomycin and was admitted to medical floor consultation for ENT was initiated for possible abscess drainage. Patient has a prolonged past medical history including history of chronic renal failure patient has a history of kidney transplant and liver transplant. He also has history of insulin-dependent diabetes mellitus and history of congestive heart failure. Patient was seen by ENT specialist. Underwent incision and drainage of left nasal abscess. Culture pending. Remains on IV antibiotics. Awaiting ID evaluation. Patient reports having a lot of pain in that. He denies any chest pain or shortness of breath. Denies any nausea or vomiting. Denies any bowel movement changes or urinary symptoms. He does report having some small amounts of epistaxis. Objective - Vital Signs Vital signs: Vital Signs Temp 99.1 F 12/27/16 07:00 Pulse 83 12/27/16 07:00 Resp 16 12/27/16 07:00 BP 111/50 12/27/16 07:00 Pulse Ox 93 L 12/27/16 07:00 Intake & Output 12/26/16 12/27/16 12/27/16 18:59 06:59 18:59 Intake Total 350 Balance 350 Intake: IV 350 Ampicillin-Sulbactam 3 gm 100 In Sodium Chloride 0.9% 100 ml @ 100 mls/hr IVPB Q8HR [facility] Rx#:[id number] Vancomycin 1,500 mg In 250 Sodium Chloride 0.9% 250 ml @ 125 mls/hr IVPB ONCE STA Rx#:[id number] Other: # Voids 2 - Exam HEENT nose left side noted the swelling bruising dressing is saturated with blood Head normocephalic Neck supple Lungs clear to auscultation bilaterally no wheezing or crackles Heart regular rate and rhythm S1-S2, no rub or gallop Abdomen is soft nontender nondistended positive bowel sounds no hepatosplenomegaly Extremities no edema Neuro alert and orientated to 3 - Labs CBC & Chem 7: 12/27/16 07:47 12/27/16 07:47 Labs: Abnormal Lab Results - Last 24 Hours (Table) 12/26/16 12/26/16 12/26/16 Range/Units 11:48 17:26 20:35 RBC (4.30-5.90) m/uL Hgb (13.0-17.5) gm/dL Hct (39.0-53.0) % Lymphocytes # (1.0-4.8) k/uL Sodium (137-145) mmol/L Carbon Dioxide (22-30) mmol/L BUN (9-20) mg/dL Creatinine (0.66-1.25) mg/dL POC Glucose (mg/dL) 174 H 149 H 173 H (75-99) mg/dL Calcium (8.4-10.2) mg/dL Total Protein (6.3-8.2) g/dL Albumin (3.5-5.0) g/dL 12/27/16 12/27/16 Range/Units 07:47 07:47 RBC 3.97 L (4.30-5.90) m/uL Hgb 11.3 L (13.0-17.5) gm/dL Hct 34.4 L (39.0-53.0) % Lymphocytes # 0.5 L (1.0-4.8) k/uL Sodium 132 L (137-145) mmol/L Carbon Dioxide 17 L (22-30) mmol/L BUN 76 H (9-20) mg/dL Creatinine 3.04 H (0.66-1.25) mg/dL POC Glucose (mg/dL) (75-99) mg/dL Calcium 8.2 L (8.4-10.2) mg/dL Total Protein 5.0 L (6.3-8.2) g/dL Albumin 2.8 L (3.5-5.0) g/dL Microbiology - Last 24 Hours (Table) 12/25/16 16:15 Blood Culture - Preliminary Blood No Growth after 24 hours 12/26/16 07:24 Nasal Culture - Preliminary Nasal Swab Assessment and Plan Plan: #1 abscess to the left side of the nose status post incision and drainage by ENT. Infectious disease following. Antibiotics adjusted to Zosyn and vancomycin per Dr. Loya. Add Ultram for her better pain control #2 insulin-dependent diabetes mellitus with uncontrolled blood sugars. Improvement in blood sugars this morning. Insulin was increased yesterday. Continue to monitor #3 history of kidney and liver transplant stable at this time continue was current medications #4 underlying history of congestive heart failure stable at this time #5 underlying history of chronic renal failure , stage IV. will monitor kidney function daily #6 underlying history of chronic obstructive pulmonary disease stable at this time #7 Essential hypertension: Blood pressure stable I performed an examination of the patient and discussed their management with the physician Change Attendant. I have reviewed the Physician Change Attendant's notes and agree with the documented findings and plan of care
[2016-12-27 12:27] LABS: Glucose,Whole Blood 113 mg/dL (75-99)
[2016-12-27] MEDS: traMADol 50 MG TAB PO PRN (13:31)
--- NOTE | 2016-12-27 13:40 | P.NPCON ---
History of Present Illness - Reason for Consult chronic renal failure - History of Present Illness Reason for consultation: Chronic kidney disease and transplant management History of present illness: Patient is a 71-year-old male seen in renal consultation for chronic kidney disease and renal transplant management. 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 He received a donor renal allograft in 2010. Patient recently had a biopsy done at [facility] which revealed acute cellular rejection along with diabetic kidney disease and moderate arteriosclerosis. His baseline GFR is about 25. He also has history of systolic CHF with ejection fraction of 40% for which she is currently maintained on Lasix 40 mg twice daily. He denies any active chest pain or shortness of breath. He presented to the hospital with a nasal abscess and underwent incision and drainage on December 26. He is currently maintained on IV antibiotics. Does admit to pain at the surgical site. No vomiting or diarrhea. Oral intake is good. His use of NSAIDs. Good urine output. He is maintained on CellCept and Prograf and low-dose prednisone in terms of immunosuppression. Vital signs are stable. General: The patient appeared well nourished and normally developed. HEENT: Head exam is unremarkable. Neck is without jugular venous distension. No obvious drainage from the surgical site. LUNGS: Lungs are clear to auscultation and percussion. Breath sounds decreased. HEART: Rate and Rhythm are regular. First and second heart sounds normal. No murmurs, rubs or gallops. ABDOMEN: Abdominal exam reveals normal bowel sounds. Non-tender and non- distended. No evidence of peritonitis. EXTREMITITES: 1+ edema. Past Medical History Past Medical History: Asthma, Cancer, Heart Failure, COPD, Diabetes Mellitus, GERD/Reflux, Hyperlipidemia, Hypertension, Osteoarthritis (OA), Pneumonia, Renal Disease, Seizure Disorder Additional Past Medical History / Comment(s): 06/13/15 Pt presented to [facility] ER with SOB. He is admitted with clinical impression of CHF exacerbation, dyspnea and hyperglycemia, renal failure. 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 History of Any Multi-Drug Resistant Organisms: None Reported Past Surgical History: Heart Catheterization, Heart Catheterization With Stent Additional Past Surgical History / Comment(s): liver transplant 2006 d/t non alcoholic steatohepatits d/t fatty liver, colonoscopy, insertion lt arm fistula( in past had hemodialysis)-kidney implant 2011, lt shoulder sx has pin in place, rt wrist sx with pins, cataract removal and lens implants bilaterally 2013. Past Anesthesia/Blood Transfusion Reactions: No Reported Reaction Date of Last Stent Placement:: 2007 Past Psychological History: No Psychological Hx Reported Additional Psychological History / Comment(s): Pt resides at home with his spouse. He is independent. He uses no assistive device. He has no home care agency use. He drives. Smoking Status: Current every day smoker Past Alcohol Use History: None Reported Past Drug Use History: None Reported - Past Family History Father Family Medical History: No Reported History, Cancer, Hypertension Additional Family Medical History / Comment(s): Father in his 80's. Mother Family Medical History: Diabetes Mellitus, Hypertension Additional Family Medical History / Comment(s): Mother in her 80's. Medications and Allergies Home Medications Medication Instructions Recorded Confirmed Type Atorvastatin [Lipitor] 20 mg PO DAILY 08/18/14 12/25/16 History Tacrolimus [Prograf] 3 mg PO QAM 08/18/14 12/25/16 History Allopurinol [Zyloprim] 100 mg PO DAILY 10/10/16 12/25/16 History Calcitriol [Rocaltrol] 0.25 mcg PO LARA 10/10/16 12/25/16 History Gabapentin [Neurontin] 100 mg PO TID PRN 10/10/16 12/25/16 History Sodium Bicarbonate Tab 650 mg PO BID 10/10/16 12/25/16 History Budesonide [Pulmicort] 0.5 mg INHALATION RT-BID PRN 11/26/16 12/25/16 History Ergocalciferol (Vitamin D2) 50,000 unit PO QMONTH 11/26/16 12/25/16 History [Vitamin D2] Insulin NPL/Insulin Lispro 15 unit SQ HS 11/26/16 12/25/16 History [humaLOG MIX 75-25 VIAL] Insulin NPL/Insulin Lispro 20 unit SQ QAM 11/26/16 12/25/16 History [humaLOG MIX 75-25 VIAL] Ipratropium [place] [Atrovent Hfa] 2 puff INHALATION RT-QID PRN 11/26/16 History Tacrolimus [Prograf] 4 mg PO HS 11/26/16 12/25/16 History Aspirin EC [Ecotrin Low Dose] 81 mg PO DAILY 12/25/16 12/25/16 History Metoprolol Tartrate [Lopressor] 50 mg PO HS 12/25/16 12/25/16 History Metoprolol Tartrate [Lopressor] 100 mg PO QAM 12/25/16 12/25/16 History Mycophenolate Mofetil [Cellcept] 500 mg PO BID 12/25/16 12/25/16 History amLODIPine BESYLATE [Norvasc] 10 mg PO DAILY 12/25/16 12/25/16 History Allergies Allergy/AdvReac Type Severity Reaction Status Date / Time heaton Allergy Unknown Verified 12/25/16 15:36 codeine Allergy Rash/Hives Verified 12/25/16 16:51 erythromycin base Allergy Swelling Verified 12/25/16 16:51 Physical Exam Vitals: Vital Signs Temp Pulse Resp BP Pulse Ox 12/27/16 07:00 99.1 F 83 16 111/50 93 L 12/26/16 23:00 98.4 F 85 19 128/64 96 12/26/16 19:35 95 12/26/16 16:00 87 20 12/26/16 15:00 98.6 F 87 20 110/55 92 L Intake and Output 12/26/16 12/27/16 12/27/16 22:59 06:59 14:59 Other: # Voids 1 2 Results - Lab Results Most recent lab results Calcium 8.2 mg/dL (8.4-10.2) L 12/27/16 07:47 12/27/16 07:47 12/27/16 07:47 Assessment and Plan Plan: Assessment: #1. Chronic kidney disease stage IV with baseline creatinine in the range of 2.5-3 secondary to history of ejection along with diabetic kidney disease as well as moderate arteriosclerosis noted on renal biopsy done in November 2016 at [facility]. #2. Nasal abscess status post incision and drainage on Kylie 21. #3. Metabolic acidosis secondary to chronic kidney disease. #4. Status post donor renal allograft in 2010 at [facility]. #5. Systolic CHF with ejection fraction of 40%. #6. Insulin-dependent diabetes mellitus. #7. Hyponatremia. Appears hypervolemic in nature. Plan: Continue Lasix 40 mg orally twice daily. I will put him on a low salt and a 1.5 L fluid restricted diet. Continue with CellCept, Prograf and prednisone. Avoid nephrotoxic agents and hypotensive episodes. Increase dose of sodium bicarbonate to 1300 mg twice daily. Antibiotics per infectious disease recommendations. Monitor vancomycin levels. Thank you for the consultation. I will continue to follow the patient with you during his hospital stay.
[2016-12-27] MEDS: predniSONE 2.5 MG TAB PO SCH (14:15)
[2016-12-27 16:59] LABS: Glucose,Whole Blood 190 mg/dL (75-99)
[2016-12-27] MEDS ORDERED: VANCOMYCIN 1,500 MG in SODIUM CHLORIDE 0.9% 250 ML IVPB ONE (18:00)
[2016-12-27 20:28] LABS: Glucose,Whole Blood 211 mg/dL (75-99)
--- NOTE | 2016-12-27 23:07 | P.CONS ---
History of Present Illness - Reason for Consult Consult date: 12/27/16 - Chief Complaint Pain of nose - History of Present Illness Very pleasant 71-year-old male known to the infectious disease service from his history of a left leg infection from [place] years ago. Fortunately leg with salvage and is in relatively well. The patient has the very extensive past medical history related to his liver transplant nearly 15 years ago. He then developed renal failure and renal transplant about 6 years ago. He is chronically immunosuppressed but does relatively well. This had the sudden onset of pain and swelling to the left side of his nose. It was painful. He had a fever of 101. And he was admitted. He's been seen by ENT and has had a bedside incision and drainage of the significant abscess that penetrated intranasal. The patient is feeling better but still has some pain. He is denying further fever chills rigors or sweats but does feel poorly. His fever and chills at admission of now improved. Review of Systems HEENT:Denies headache or acute visual change. Denies mouth discomforts. Denies neck stiffness or pain. Denies significant oral cavity pain. Denies difficulty on swallowing. Please see the HPI for the nasal infection Lungs: Denies significant shortness of breath, cough, sputum production, or hemoptysis. Cardiovascular: Denies significant shortness of breath, chest pain, chest wall pain, orthopnea, dyspnea on exertion, syncope Gastrointestinal:Denies nausea, vomiting, diarrhea, constipation, hematemesis, melena, hematochezia. No no significant change of bowel habit noticed. Musculoskeletal: denies significant myalgias or arthralgias. No new joint swelling. Denies new back pain. Skin: Denies new rash or lesions. No new ulcers or wounds are related.. Neuro: Denies headache or visual change. Denies any new onset weakness or difficulty with ambulation. Denies falls or seizures. Psychiatric:Denies anxiety or depression. Endocrine: Denies significant fatigue, denies significant weight loss or weight gain. Past Medical History Past Medical History: Asthma, Cancer, Heart Failure, COPD, Diabetes Mellitus, GERD/Reflux, Hyperlipidemia, Hypertension, Osteoarthritis (OA), Pneumonia, Renal Disease, Seizure Disorder Additional Past Medical History / Comment(s): 06/13/15 Pt presented to [facility] ER with SOB. He is admitted with clinical impression of CHF exacerbation, dyspnea and hyperglycemia, renal failure. 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 History of Any Multi-Drug Resistant Organisms: None Reported Past Surgical History: Heart Catheterization, Heart Catheterization With Stent Additional Past Surgical History / Comment(s): liver transplant 2005 d/t non alcoholic steatohepatits d/t fatty liver, colonoscopy, insertion lt arm fistula( in past had hemodialysis)-kidney implant 2011, lt shoulder sx has pin in place, rt wrist sx with pins, cataract removal and lens implants bilaterally 2013. Past Anesthesia/Blood Transfusion Reactions: No Reported Reaction Date of Last Stent Placement:: 2007 Past Psychological History: No Psychological Hx Reported Additional Psychological History / Comment(s): Pt resides at home with his spouse. He is independent. He uses no assistive device. He has no home care agency use. He drives. Smoking Status: Current every day smoker Past Alcohol Use History: None Reported Past Drug Use History: None Reported - Past Family History Father Family Medical History: No Reported History, Cancer, Hypertension Additional Family Medical History / Comment(s): Father in his 80's. Mother Family Medical History: Diabetes Mellitus, Hypertension Additional Family Medical History / Comment(s): Mother in her 80's. Medications and Allergies Home Medications and Allergies Comment(s): Current Medications Acetaminophen (Tylenol Tab) 650 mg PO Q6HR PRN PRN Reason: Mild Pain or Fever > 100.5 Last Admin: 12/25/16 20:23 Dose: 650 mg Allopurinol (Zyloprim) 100 mg PO DAILY [facility] Last Admin: 12/27/16 08:05 Dose: 100 mg Amlodipine Besylate (Norvasc) 10 mg PO DAILY [facility] Last Admin: 12/27/16 08:05 Dose: 10 mg Apixaban (Eliquis) 2.5 mg PO BID [facility] Last Admin: 12/27/16 22:04 Dose: 2.5 mg Atorvastatin Calcium (Lipitor) 20 mg PO DAILY [facility] Last Admin: 12/27/16 08:06 Dose: 20 mg Budesonide (Pulmicort) 0.5 mg INHALATION RT-BID PRN PRN Reason: Shortness Of Breath Calcitriol (Rocaltrol) 0.25 mcg PO [facility] Furosemide (Lasix) 40 mg PO BID [facility] Last Admin: 12/27/16 22:03 Dose: 40 mg Gabapentin (Neurontin) 100 mg PO TID PRN PRN Reason: Pain Hydralazine HCl (Apresoline) 25 mg PO TID [facility] Last Admin: 12/27/16 22:03 Dose: 25 mg Hydromorphone HCl (Dilaudid) 0.5 mg IV Q3HR PRN PRN Reason: Severe Pain Last Admin: 12/27/16 06:24 Dose: 0.5 mg Piperacillin/Tazobactam/ (Dextrose 3.375 gm/ IV Solution) 50 mls @ 12.5 mls/hr IVPB Q8HR [facility] Last Admin: 12/27/16 15:08 Dose: 12.5 mls/hr Insulin Human Lispro (Humalog) 0 unit SQ ACHS [facility] PRN Reason: Protocol Last Admin: 12/27/16 22:01 Dose: 3 unit Insulin Lispro Protam/Lispro Human (Humalog Mix 75-25 Vial) 15 unit SQ [facility] Last Admin: 12/27/16 22:14 Dose: 15 unit Insulin Lispro Protam/Lispro Human (Humalog Mix 75-25 Vial) 20 unit SQ QAM [facility] Last Admin: 12/27/16 08:10 Dose: Not Given Metoprolol Tartrate (Lopressor) 100 mg PO QAM [facility] Last Admin: 12/27/16 08:04 Dose: 100 mg Metoprolol Tartrate (Lopressor) 50 mg PO HS [facility] Last Admin: 12/27/16 22:04 Dose: 50 mg Miscellaneous Information (Pharmacy To Dose Iv Vancomycin) 1 each MISCELLANE DIRECTED PRN PRN Reason: Per Protocol Mycophenolate Mofetil (Cellcept) 500 mg PO BID [facility] Last Admin: 12/27/16 22:03 Dose: 500 mg Naloxone HCl (Narcan) 0.2 mg IV Q2M PRN PRN Reason: Opioid Reversal Ondansetron HCl (Zofran) 4 mg IVP Q8HR PRN PRN Reason: Nausea And Vomiting Prednisone () 2.5 mg PO DAILY [facility] Last Admin: 12/27/16 14:15 Dose: 2.5 mg Sodium Bicarbonate (Sodium Bicarbonate Tab) 1,300 mg PO BID [facility] Last Admin: 12/27/16 22:03 Dose: 1,300 mg Tacrolimus (Prograf) 3 mg PO QAM [facility] Last Admin: 12/27/16 08:05 Dose: 3 mg Tacrolimus (Prograf) 4 mg PO [facility] Last Admin: 12/27/16 22:03 Dose: 4 mg Tramadol HCl (Ultram) 50 mg PO TID PRN PRN Reason: Pain Last Admin: 12/27/16 13:31 Dose: 50 mg Home Medications Medication Instructions Recorded Confirmed Type Atorvastatin [Lipitor] 20 mg PO DAILY 08/18/14 12/25/16 History Tacrolimus [Prograf] 3 mg PO QAM 08/18/14 12/25/16 History Allopurinol [Zyloprim] 100 mg PO DAILY 10/10/16 12/25/16 History Calcitriol [Rocaltrol] 0.25 mcg PO 10/10/16 12/25/16 History Gabapentin [Neurontin] 100 mg PO TID PRN 10/10/16 12/25/16 History Sodium Bicarbonate Tab 650 mg PO BID 10/10/16 12/25/16 History Budesonide [Pulmicort] 0.5 mg INHALATION RT-BID PRN 11/26/16 12/25/16 History Ergocalciferol (Vitamin D2) 50,000 unit PO QMONTH 11/26/16 12/25/16 History [Vitamin D2] Insulin NPL/Insulin Lispro 15 unit SQ 11/26/16 12/25/16 History [humaLOG MIX 75-25 VIAL] Insulin NPL/Insulin Lispro 20 unit SQ QAM 11/26/16 12/25/16 History [humaLOG MIX 75-25 VIAL] Ipratropium Wellpinit [Atrovent Hfa] 2 puff INHALATION RT-QID PRN 11/26/16 History Tacrolimus [Prograf] 4 mg PO 11/26/16 12/25/16 History Aspirin EC [Ecotrin Low Dose] 81 mg PO DAILY 12/25/16 12/25/16 History Metoprolol Tartrate [Lopressor] 50 mg PO 12/25/16 12/25/16 History Metoprolol Tartrate [Lopressor] 100 mg PO QAM 12/25/16 12/25/16 History Mycophenolate Mofetil [Cellcept] 500 mg PO BID 12/25/16 12/25/16 History amLODIPine BESYLATE [Norvasc] 10 mg PO DAILY 12/25/16 12/25/16 History Allergies Allergy/AdvReac Type Severity Reaction Status Date / Time heaton Allergy Unknown Verified 12/25/16 15:36 codeine Allergy Rash/Hives Verified 12/25/16 16:51 erythromycin base Allergy Swelling Verified 12/25/16 16:51 Physical Exam Vitals: Vital Signs Temp Pulse Resp BP Pulse Ox 12/27/16 15:00 99.0 F 80 16 122/57 94 L 12/27/16 07:00 99.1 F 83 16 111/50 93 L 12/26/16 23:00 98.4 F 85 19 128/64 96 Intake and Output 12/27/16 12/27/16 12/27/16 06:59 14:59 22:59 Other: Voiding Method Toilet # Voids 2 2 0 # Bowel Movements 1 0 71-year-old male complains of significant pain to his nose relates it' s improved from admission. Fever has improved. HEENT: Anicteric conjunctiva are pink and moist oral mucosa is intact with no thrush The nose has evidence of the recent incision and drainage of the dressing at some place as well as what appears to be some packing. This is not removed since it was placed by the ENT surgeon. The site is tender. There is still some swelling to the nose especially at the bridge. No evidence of any periorbital cellulitis. No tenderness over the paravertebral space. Danielle is still very tender especially at the bridge of the nose. There is no bleeding at this point in time. Neck: The neck is supple without significant lymphadenopathy or thyromegaly. Lungs: Good bilateral air entry with some wheezing but no crackles There is no significant bronchial sounds. There is no egophony or dullness. Heart: Regular rate and rhythm with an audible S1-S2, no S3 no S4. There is no significant murmur click or rub, PMI was nondisplaced. Abdomen: Positive bowel sounds soft and nontender without palpable masses or organomegaly. There was no guarding or rebound. The significant surgical wounds from the liver transplantation are noted in healed Extremities: The upper extremities have excellent pulses they are symmetric, no significant petechiae or telangiectasia. No splinter hemorrhages were noted. The lower extremities are free from significant edema. The peripheral pulses were 2+ and symmetric. He has chronic lower show me edema and does wrap his legs and the ongoing basis. Neuro: Awake alert oriented to person place and time. There are no acute new gross focal sensory motor deficits. Results CBC & Chem 7: 12/27/16 07:47 12/27/16 07:47 Labs: Abnormal Lab Results - Last 24 Hours (Table) 12/27/16 12/27/16 12/27/16 Range/Units 07:47 07:47 12:00 RBC 3.97 L (4.30-5.90) m/uL Hgb 11.3 L (13.0-17.5) gm/dL Hct 34.4 L (39.0-53.0) % Lymphocytes # 0.5 L (1.0-4.8) k/uL Sodium 132 L (137-145) mmol/L Carbon Dioxide 17 L (22-30) mmol/L BUN 76 H (9-20) mg/dL Creatinine 3.04 H (0.66-1.25) mg/dL POC Glucose (mg/dL) 113 H (75-99) mg/dL Calcium 8.2 L (8.4-10.2) mg/dL Total Protein 5.0 L (6.3-8.2) g/dL Albumin 2.8 L (3.5-5.0) g/dL 12/27/16 12/27/16 Range/Units 16:57 20:27 RBC (4.30-5.90) m/uL Hgb (13.0-17.5) gm/dL Hct (39.0-53.0) % Lymphocytes # (1.0-4.8) k/uL Sodium (137-145) mmol/L Carbon Dioxide (22-30) mmol/L BUN (9-20) mg/dL Creatinine (0.66-1.25) mg/dL POC Glucose (mg/dL) 190 H 211 H (75-99) mg/dL Calcium (8.4-10.2) mg/dL Total Protein (6.3-8.2) g/dL Albumin (3.5-5.0) g/dL Microbiology - Last 24 Hours (Table) 12/25/16 16:15 Blood Culture - Preliminary Blood No Growth after 48 hours 12/26/16 07:24 Nasal Culture - Preliminary Nasal Swab Presumptive Staph aureus Laboratory Results WBC 7.4 k/uL (3.8-10.6) 12/27/16 07:47 RBC 3.97 m/uL (4.30-5.90) L 12/27/16 07:47 Hgb 11.3 gm/dL (13.0-17.5) L 12/27/16 07:47 Hct 34.4 % (39.0-53.0) L 12/27/16 07:47 MCV 86.5 fL (80.0-100.0) 12/27/16 07:47 MCH 28.4 pg (25.0-35.0) 12/27/16 07:47 MCHC 32.9 g/dL (31.0-37.0) 12/27/16 07:47 RDW 15.0 % (11.5-15.5) 12/27/16 07:47 Plt Count 187 k/uL (150-450) 12/27/16 07:47 Neutrophils % 84 % 12/27/16 07:47 Lymphocytes % 7 % 12/27/16 07:47 Monocytes % 6 % 12/27/16 07:47 Eosinophils % 1 % 12/27/16 07:47 Basophils % 0 % 12/27/16 07:47 Neutrophils # 6.2 k/uL (1.3-7.7) 12/27/16 07:47 Lymphocytes # 0.5 k/uL (1.0-4.8) L 12/27/16 07:47 Monocytes # 0.4 k/uL (0-1.0) 12/27/16 07:47 Eosinophils # 0.1 k/uL (0-0.7) 12/27/16 07:47 Basophils # 0.0 k/uL (0-0.2) 12/27/16 07:47 Hypochromasia Slight 12/27/16 07:47 PT 11.1 sec (9.0-12.0) 12/25/16 16:15 INR 1.1 (<1.1) 12/25/16 16:15 APTT 25.6 sec (22.0-30.0) 12/25/16 16:15 Sodium 132 mmol/L (137-145) L 12/27/16 07:47 Potassium 4.8 mmol/L (3.5-5.1) 12/27/16 07:47 Chloride 105 mmol/L (98-107) 12/27/16 07:47 Carbon Dioxide 17 mmol/L (22-30) L 12/27/16 07:47 Anion Gap 10 mmol/L 12/27/16 07:47 BUN 76 mg/dL (9-20) H 12/27/16 07:47 Creatinine 3.04 mg/dL (0.66-1.25) H 12/27/16 07:47 Est GFR (MDRD) Af Amer 25 (>60 ml/min/1.73 sqM) 12/27/16 07:47 Est GFR (MDRD) Non-Af 21 (>60 ml/min/1.73 sqM) 12/27/16 07:47 Glucose 89 mg/dL (74-99) 12/27/16 07:47 POC Glucose (mg/dL) 211 mg/dL (75-99) H 12/27/16 20:27 POC Glu Tacker [employer] Band Melinda Goodwin 12/27/16 20:[address] Glu mg/dL 192 mg/dL 12/25/16 16:15 Hemoglobin A1c 8.3 % (4.2-6.1) H 12/25/16 16:15 Plasma Lactic Acid Nelson 1.7 mmol/L (0.7-2.0) 12/25/16 16:15 Calcium 8.2 mg/dL (8.4-10.2) L 12/27/16 07:47 Total Bilirubin 1.0 mg/dL (0.2-1.3) 12/27/16 07:47 AST 18 U/L (17-59) 12/27/16 07:47 ALT 24 U/L (21-72) 12/27/16 07:47 Alkaline Phosphatase 85 U/L (38-126) 12/27/16 07:47 Total Protein 5.0 g/dL (6.3-8.2) L 12/27/16 07:47 Albumin 2.8 g/dL (3.5-5.0) L 12/27/16 07:47 Random Vancomycin 14.4 ug/mL 12/27/16 07:47 Acetone, Qual Negative (Negative) 12/25/16 16:15 Microbiology 12/25/16 16:15 Blood Blood Culture - Preliminary No Growth after 48 hours 12/26/16 07:24 Nasal Swab Nasal Culture - Preliminary Presumptive Staph aureus Assessment and Plan (1) Nasal abscess Status: Acute (2) Fever Status: Acute (3) Liver transplant recipient Status: Acute
[2016-12-28] MEDS: PIPERACILLIN-TAZOBACTAM 3.375 GM in DEXTROSE/WATER 1 50ML.BAG IVPB SCH ×4 (00:08→16:45)
[2016-12-28] MEDS: traMADol 50 MG TAB PO PRN ×2 (00:13→09:10)
[2016-12-28 07:15] LABS: Glucose,Whole Blood 97 mg/dL (75-99)
[2016-12-28] MEDS: INSULIN LISPRO (humaLOG) 300 UNIT/3 ML VIAL SQ SCH ×4 (08:21→21:32)
[2016-12-28 09:42] LABS: Basophils % (A) 0 %; CH 27.6; Eosinophils # (A) 0.1 k/uL (0-0.7); Eosinophils % (A) 1 %; HCT 34.1 % (39.0-53.0); HDW 3.04; HGB 10.9 gm/dL (13.0-17.5); Hypochromasia Slight; Luc # (Auto) 0.13; Luc % (Auto) 2; Lymphocytes # (A) 0.5 k/uL (1.0-4.8); Lymphocytes % (A) 8 %; MCH 27.7 pg (25.0-35.0); MCV 86.6 fL (80.0-100.0); Mean Platelet Volume 7.4; Monocytes # (A) 0.3 k/uL (0-1.0); Monocytes % (A) 5 %; Neutrophils # (A) 5.2 k/uL (1.3-7.7); Neutrophils % (A) 83 %; RBC 3.94 m/uL (4.30-5.90); RDW 14.9 % (11.5-15.5); WBC 6.2 k/uL (3.8-10.6); WBC (Perox) 6.54
[2016-12-28 09:52] LABS: Calcium 8.2 mg/dL (8.4-10.2); Potassium 5.2 mmol/L (3.5-5.1); Total Bilirubin 0.9 mg/dL (0.2-1.3); Total Protein 4.8 g/dL (6.3-8.2)
[2016-12-28] MEDS: amLODIPine 10 MG TAB PO SCH (10:55)
[2016-12-28] MEDS: hydrALAZINE HCL 25 MG TAB PO SCH ×3 (10:55→21:44)
[2016-12-28] MEDS: FUROSEMIDE 40 MG TAB PO SCH ×2 (10:55→12:20)
[2016-12-28] MEDS: predniSONE 2.5 MG TAB PO SCH (10:56)
[2016-12-28] MEDS: METOPROLOL TARTRATE 50 MG TAB PO SCH ×2 (10:56→21:43)
[2016-12-28] MEDS: ATORVASTATIN 20 MG TAB PO SCH (10:56)
[2016-12-28] MEDS: ALLOPURINOL 100 MG TAB PO SCH (10:56)
[2016-12-28] MEDS: TACROLIMUS 1 MG CAP PO SCH ×2 (10:56→21:44)
[2016-12-28] MEDS: SODIUM BICARBONATE TAB 650 MG TAB PO SCH ×2 (10:56→21:43)
[2016-12-28] MEDS: MYCOPHENOLATE MOFETIL 500 MG TAB PO SCH ×2 (10:57→21:43)
[2016-12-28] MEDS: INSULIN NPL/INSULIN LISPRO 100 UNIT/ML 10 ML VIAL (Humalog 75/25) SQ SCH ×2 (10:57→21:42)
[2016-12-28] MEDS: APIXABAN 2.5 MG TABLET PO SCH ×2 (10:57→21:42)
[2016-12-28] MEDS: HYDROmorphone 1 MG/ML 1 ML SYRINGE IV PRN ×2 (11:04→21:44)
--- NOTE | 2016-12-28 11:19 | P.PN ---
Subjective Patient is a 71-year-old male with multiple medical problems who presented to emergency room was a chief complaint of pain and swelling in his nose with erythema and tenderness in the area, patient had fever of 101 in the emergency room he was started on IV Unasyn and IV vancomycin and was admitted to medical floor consultation for ENT was initiated for possible abscess drainage. Patient has a prolonged past medical history including history of chronic renal failure patient has a history of kidney transplant and liver transplant. He also has history of insulin-dependent diabetes mellitus and history of congestive heart failure. 12/27/16 Patient was seen by ENT specialist. Underwent incision and drainage of left nasal abscess. Culture pending. Remains on IV antibiotics. Awaiting ID evaluation. Patient reports having a lot of pain in that. He denies any chest pain or shortness of breath. Denies any nausea or vomiting. Denies any bowel movement changes or urinary symptoms. He does report having some small amounts of epistaxis. 12/28/2016 nasal abscess culture growing presumptive staph aureus. Infectious disease following. Patient still having pain and swelling. Maybe a slight increase in swelling near the tear ducts the left eye. Patient had no further epistaxis. Denies any chest pain shortness breath. Denies any nausea or vomiting. Reports regular problems. Denies any difficulty urinating Objective - Vital Signs Vital signs: Vital Signs Temp 96.8 F L 12/28/16 07:00 Pulse 76 12/28/16 07:00 Resp 18 12/28/16 07:00 BP 121/61 12/28/16 07:00 Pulse Ox 98 12/28/16 07:00 Intake & Output 12/27/16 12/28/16 12/28/16 18:59 06:59 18:59 Other: Voiding Method Toilet # Voids 2 2 1 # Bowel Movements 1 0 - Exam HEENT nose left side noted the swelling bruising dressing is saturated with blood swelling noted along the left cheek and left-side of his nose near the tear ducts Head normocephalic Neck supple Lungs clear to auscultation bilaterally no wheezing or crackles Heart regular rate and rhythm S1-S2, no rub or gallop Abdomen is soft nontender nondistended positive bowel sounds no hepatosplenomegaly Extremities no edema Neuro alert and orientated to 3 - Labs CBC & Chem 7: 12/28/16 08:53 12/28/16 08:53 Labs: Abnormal Lab Results - Last 24 Hours (Table) 12/27/16 12/27/16 12/27/16 Range/Units 12:00 16:57 20:27 RBC (4.30-5.90) m/uL Hgb (13.0-17.5) gm/dL Hct (39.0-53.0) % Lymphocytes # (1.0-4.8) k/uL Sodium (137-145) mmol/L Potassium (3.5-5.1) mmol/L Carbon Dioxide (22-30) mmol/L BUN (9-20) mg/dL Creatinine (0.66-1.25) mg/dL Glucose (74-99) mg/dL POC Glucose (mg/dL) 113 H 190 H 211 H (75-99) mg/dL Calcium (8.4-10.2) mg/dL Total Protein (6.3-8.2) g/dL Albumin (3.5-5.0) g/dL 12/28/16 12/28/16 Range/Units 08:53 08:53 RBC 3.94 L (4.30-5.90) m/uL Hgb 10.9 L (13.0-17.5) gm/dL Hct 34.1 L (39.0-53.0) % Lymphocytes # 0.5 L (1.0-4.8) k/uL Sodium 133 L (137-145) mmol/L Potassium 5.2 H (3.5-5.1) mmol/L Carbon Dioxide 18 L (22-30) mmol/L BUN 76 H (9-20) mg/dL Creatinine 3.40 H (0.66-1.25) mg/dL Glucose 144 H (74-99) mg/dL POC Glucose (mg/dL) (75-99) mg/dL Calcium 8.2 L (8.4-10.2) mg/dL Total Protein 4.8 L (6.3-8.2) g/dL Albumin 2.8 L (3.5-5.0) g/dL Microbiology - Last 24 Hours (Table) 12/25/16 16:15 Blood Culture - Preliminary Blood No Growth after 48 hours 12/26/16 07:24 Nasal Culture - Preliminary Nasal Swab Presumptive Staph aureus Assessment and Plan Plan: #1 abscess to the left side of the nose status post incision and drainage by ENT. Infectious disease following. Antibiotics adjusted to Zosyn and vancomycin per Dr. Loya. Add Ultram for her better pain control. Culture growing presumptive staph aureus. Await further recognition per infectious disease #2 insulin-dependent diabetes mellitus with uncontrolled blood sugars. Improvement in blood sugars this morning. Insulin was increased yesterday. Continue to monitor #3 history of kidney and liver transplant stable at this time continue was current medications #4 underlying history of congestive heart failure stable at this time #5 underlying history of chronic renal failure , stage IV. will monitor kidney function daily #6 underlying history of chronic obstructive pulmonary disease stable at this time #7 Essential hypertension: Blood pressure stable #8 chronic kidney disease, stage IV. Creatinine has increased to 3.40 nephrology following. #9 metabolic acidosis secondary to chronic kidney disease nephrology has increased sodium bicarbonate to 1300 mg twice a day #10 for hyponatremia: Nephrology has placed him on fluid restrictions. #11 hyperkalemia: Continue low potassium diet. Patient is also on Lasix which correct this. Repeat labs in AM I performed an examination of the patient and discussed their management with the physician Cyber Security. I have reviewed the Physician Cyber Security's notes and agree with the documented findings and plan of care
[2016-12-28 11:54] LABS: Glucose,Whole Blood 160 mg/dL (75-99)
--- NOTE | 2016-12-28 12:54 | P.PN ---
Subjective Patient is seen in follow-up for acute kidney injury and renal transplant management. Renal function is worse with creatinine at 3.4 today. Patient presented with a nasal abscess and underwent incision and drainage this admission. Cultures are positive for MRSA. Patient has a donor renal allograft from 2010 done at [facility]. Patient recently underwent transplant biopsy in November 2016 which revealed acute cellular rejection along with diabetic kidney disease and moderate arteriosclerosis. His baseline GFR is near 25. Patient has systolic CHF with ejection fraction of 40% and is currently maintained on oral diuretics. He admits to good urine output. Oral intake is fair. No vomiting or diarrhea. Denies chest pain or shortness of breath. Vital signs are stable. General: The patient appeared well nourished and normally developed. HEENT: Head exam is unremarkable. Neck is without jugular venous distension. No obvious drainage from site of infection. LUNGS: Lungs are clear to auscultation and percussion. Breath sounds decreased. HEART: Rate and Rhythm are regular. First and second heart sounds normal. No murmurs, rubs or gallops. ABDOMEN: Abdominal exam reveals normal bowel sounds. Non-tender and non- distended. No evidence of peritonitis. EXTREMITITES: 1+ edema. Objective - Vital Signs Vital signs: Vital Signs Temp 96.8 F L 12/28/16 07:00 Pulse 76 12/28/16 07:00 Resp 18 12/28/16 07:00 BP 121/61 12/28/16 07:00 Pulse Ox 98 12/28/16 07:00 Intake & Output 12/27/16 12/28/16 12/28/16 18:59 06:59 18:59 Other: Voiding Method Toilet # Voids 2 2 1 # Bowel Movements 1 0 - Labs CBC & Chem 7: 12/28/16 08:53 12/28/16 08:53 Labs: Abnormal Lab Results - Last 24 Hours (Table) 12/27/16 12/27/16 12/28/16 Range/Units 16:57 20:27 08:53 RBC 3.94 L (4.30-5.90) m/uL Hgb 10.9 L (13.0-17.5) gm/dL Hct 34.1 L (39.0-53.0) % Lymphocytes # 0.5 L (1.0-4.8) k/uL Sodium (137-145) mmol/L Potassium (3.5-5.1) mmol/L Carbon Dioxide (22-30) mmol/L BUN (9-20) mg/dL Creatinine (0.66-1.25) mg/dL Glucose (74-99) mg/dL POC Glucose (mg/dL) 190 H 211 H (75-99) mg/dL Calcium (8.4-10.2) mg/dL Total Protein (6.3-8.2) g/dL Albumin (3.5-5.0) g/dL 12/28/16 12/28/16 Range/Units 08:53 11:53 RBC (4.30-5.90) m/uL Hgb (13.0-17.5) gm/dL Hct (39.0-53.0) % Lymphocytes # (1.0-4.8) k/uL Sodium 133 L (137-145) mmol/L Potassium 5.2 H (3.5-5.1) mmol/L Carbon Dioxide 18 L (22-30) mmol/L BUN 76 H (9-20) mg/dL Creatinine 3.40 H (0.66-1.25) mg/dL Glucose 144 H (74-99) mg/dL POC Glucose (mg/dL) 160 H (75-99) mg/dL Calcium 8.2 L (8.4-10.2) mg/dL Total Protein 4.8 L (6.3-8.2) g/dL Albumin 2.8 L (3.5-5.0) g/dL Microbiology - Last 24 Hours (Table) 12/26/16 07:24 Nasal Culture - Final Nasal Swab Methicillin resist S. aureus 12/25/16 16:15 Blood Culture - Preliminary Blood No Growth after 48 hours Assessment and Plan Plan: Assessment: #1. Chronic kidney disease stage IV with baseline creatinine in the range of 2.5-3 secondary to history of ejection along with diabetic kidney disease as well as moderate arteriosclerosis noted on renal biopsy done in November 2016 at [facility]. #2. Nasal abscess status post incision and drainage on December 26. #3. Metabolic acidosis secondary to chronic kidney disease. #4. Status post donor renal allograft in 2010 at [facility]. #5. Systolic CHF with ejection fraction of 40%. #6. Insulin-dependent diabetes mellitus. #7. Hyponatremia. Appears hypervolemic in nature. Improved. #8. Acute allograft dysfunction secondary to ATN due to sepsis. Creatinine at 3.4 today. Rule out urinary retention. Plan: Hold tonight's dose of Lasix. Maintain low salt/K and a 1.5 L fluid restricted diet. Continue with CellCept, Prograf and prednisone. Avoid nephrotoxic agents and hypotensive episodes. Continue sodium bicarbonate 1300 mg twice daily. Antibiotics per infectious disease recommendations. Monitor vancomycin levels. Check renal ultrasound. Check urinalysis. Check postvoid residual and to insert Deng catheter if greater than 250 mL present. Repeat electrolytes in the morning.
--- NOTE | 2016-12-28 13:43 | US ---
EXAMINATION TYPE: US renal transplant w dop DATE OF EXAM: 12/28/2016 COMPARISON: Prior renal transplant ultrasound March 16, 2015. CLINICAL HISTORY: marquez/transplant kidney. hx of liver transplant in 2001. Hx of renal transplant 5 ye ars ago EXAM PERFORMED: Grayscale on [place] kidneys and Doppler duplex and Grayscale imaging of the transplan varun kidney. EXAM MEASUREMENTS: [place] Right Kidney: 7.3 x 4.1 x 3.6 cm [place] Left Kidney: 6.9 x 3.6 x 3.7 cm Transplant Kidney: 12.1 x 5.3 x 6.5 Location of transplanted kidney: RLQ ANATOMY: [place] Right Kidney: Echogenic. Appears small in size. Multiple echogenic foci. [place] Left Kidney: Echogenic. Appears small in size. Multiple echogenic foci. Transplant Kidney: Prominent pyramids seen Bladder: Distended. Wall = 3.9 mm Bilateral Jets not seen Incidental finding= free fluid seen in all four quadrants Small hyperechoic [place] kidneys are redemonstrated bilaterally. No hydronephrosis is seen in right r enal transplant which is normal in size. IMPRESSION: No hydronephrosis in the right renal pelvic renal transplant.
[2016-12-28] MEDS: MULTIVITAMINS, THERA 1 EACH TAB PO SCH (14:06)
[2016-12-28] MEDS: BACITRACIN 500 UNIT/GM OINT 28.4 GM TUBE TOPICAL SCH ×2 (16:43→21:42)
[2016-12-28] MEDS: CEFTAROLINE FOSAMIL 400 MG in SODIUM CHLORIDE 0.9% 250 ML IVPB SCH (17:55)
[2016-12-28 17:59] LABS: Glucose,Whole Blood 126 mg/dL (75-99)
[2016-12-28 18:48] LABS: Amorphous Sediment,Urine Rare /hpf; Appearance,Urine Cloudy (Clear); Bacteria,Urine Rare /hpf; Bilirubin,Urine Negative (Negative); Glucose,Urine (UA) Negative (Negative); Ketones,Urine Negative (Negative); Leukocyte Esterase,Urine Negative (Negative); Nitrite,Urine Negative (Negative); PH, Urine 5.5 (5.0-8.0); Particle Count 6576; Protein,Urine 2+ (Negative); RBC,Urine 3 /hpf (0-5); Specific Gravity,Urine 1.012 (1.001-1.035); Squamous Epithelial Cell,Urine <1 /hpf (0-4); UA Billing (MACRO vs. MICRO) MICRO; Urobilinogen,Urine <2.0 mg/dL (<2.0); WBC,Urine 2 /hpf (0-5)
[2016-12-28 19:08] LABS: Calcium 7.9 mg/dL (8.4-10.2); Potassium 4.7 mmol/L (3.5-5.1)
[2016-12-28 20:52] LABS: Glucose,Whole Blood 157 mg/dL (75-99)
--- NOTE | 2016-12-28 23:13 | P.PN ---
Subjective Principal diagnosis: abscess of nose Very pleasant 71-year-old male known to the infectious disease service from his history of a left leg infection from [place] years ago. Fortunately leg with salvage and is in relatively well. The patient has the very extensive past medical history related to his liver transplant nearly 15 years ago. He then developed renal failure and renal transplant about 6 years ago. He is chronically immunosuppressed but does relatively well. This had the sudden onset of pain and swelling to the left side of his nose. It was painful. He had a fever of 101. And he was admitted. He's been seen by ENT and has had a bedside incision and drainage of the significant abscess that penetrated intranasal. The patient is feeling better but still has some pain. He is denying further fever chills rigors or sweats but does feel poorly. His fever and chills at admission of now improved. Feeling better today, less pain and fever improving. Objective - Vital Signs Vital signs: Vital Signs Temp 96.3 F L 12/28/16 15:00 Pulse 73 12/28/16 21:30 Resp 18 12/28/16 15:00 BP 157/62 12/28/16 21:30 Pulse Ox 98 12/28/16 21:30 Intake & Output 12/28/16 12/28/16 12/29/16 06:59 18:59 06:59 Other: # Voids 2 3 # Bowel Movements 0 - Exam 71-year-old male complains of significant pain to his nose relates it' s improved from admission. Fever has improved. HEENT: Anicteric conjunctiva are pink and moist oral mucosa is intact with no thrush The nose has evidence of the recent incision and drainage of the dressing at some place as well as what appears to be some packing. This is not removed since it was placed by the ENT surgeon. The site is tender. There is still some swelling to the nose especially at the bridge. No evidence of any periorbital cellulitis. No tenderness over the paravertebral space. Danielle is still very tender especially at the bridge of the nose. There is no bleeding at this point in time. Neck: The neck is supple without significant lymphadenopathy or thyromegaly. Lungs: Good bilateral air entry with some wheezing but no crackles There is no significant bronchial sounds. There is no egophony or dullness. Heart: Regular rate and rhythm with an audible S1-S2, no S3 no S4. There is no significant murmur click or rub, PMI was nondisplaced. Abdomen: Positive bowel sounds soft and nontender without palpable masses or organomegaly. There was no guarding or rebound. The significant surgical wounds from the liver transplantation are noted in healed Extremities: The upper extremities have excellent pulses they are symmetric, no significant petechiae or telangiectasia. No splinter hemorrhages were noted. The lower extremities are free from significant edema. The peripheral pulses were 2+ and symmetric. He has chronic lower show me edema and does wrap his legs and the ongoing basis. Neuro: Awake alert oriented to person place and time. There are no acute new gross focal sensory motor deficits. - Labs CBC & Chem 7: 12/28/16 08:53 12/28/16 18:15 Labs: Abnormal Lab Results - Last 24 Hours (Table) 12/28/16 12/28/16 12/28/16 Range/Units 08:53 08:53 11:53 RBC 3.94 L (4.30-5.90) m/uL Hgb 10.9 L (13.0-17.5) gm/dL Hct 34.1 L (39.0-53.0) % Lymphocytes # 0.5 L (1.0-4.8) k/uL Sodium 133 L (137-145) mmol/L Potassium 5.2 H (3.5-5.1) mmol/L Carbon Dioxide 18 L (22-30) mmol/L BUN 76 H (9-20) mg/dL Creatinine 3.40 H (0.66-1.25) mg/dL Glucose 144 H (74-99) mg/dL POC Glucose (mg/dL) 160 H (75-99) mg/dL Calcium 8.2 L (8.4-10.2) mg/dL Total Protein 4.8 L (6.3-8.2) g/dL Albumin 2.8 L (3.5-5.0) g/dL Urine Protein (Negative) Amorphous Sediment (None) /hpf Urine Bacteria (None) /hpf 12/28/16 12/28/16 12/28/16 Range/Units 17:10 17:56 18:15 RBC (4.30-5.90) m/uL Hgb (13.0-17.5) gm/dL Hct (39.0-53.0) % Lymphocytes # (1.0-4.8) k/uL Sodium 133 L (137-145) mmol/L Potassium (3.5-5.1) mmol/L Carbon Dioxide 19 L (22-30) mmol/L BUN 82 H* (9-20) mg/dL Creatinine 3.43 H (0.66-1.25) mg/dL Glucose 116 H (74-99) mg/dL POC Glucose (mg/dL) 126 H (75-99) mg/dL Calcium 7.9 L (8.4-10.2) mg/dL Total Protein (6.3-8.2) g/dL Albumin (3.5-5.0) g/dL Urine Protein 2+ H (Negative) Amorphous Sediment Rare H (None) /hpf Urine Bacteria Rare H (None) /hpf 12/28/16 Range/Units 20:51 RBC (4.30-5.90) m/uL Hgb (13.0-17.5) gm/dL Hct (39.0-53.0) % Lymphocytes # (1.0-4.8) k/uL Sodium (137-145) mmol/L Potassium (3.5-5.1) mmol/L Carbon Dioxide (22-30) mmol/L BUN (9-20) mg/dL Creatinine (0.66-1.25) mg/dL Glucose (74-99) mg/dL POC Glucose (mg/dL) 157 H (75-99) mg/dL Calcium (8.4-10.2) mg/dL Total Protein (6.3-8.2) g/dL Albumin (3.5-5.0) g/dL Urine Protein (Negative) Amorphous Sediment (None) /hpf Urine Bacteria (None) /hpf Microbiology - Last 24 Hours (Table) 12/25/16 16:15 Blood Culture - Preliminary Blood No Growth after 72 hours 12/26/16 07:24 Nasal Culture - Final Nasal Swab Methicillin resist S. aureus Laboratory Results WBC 6.2 k/uL (3.8-10.6) 12/28/16 08:53 RBC 3.94 m/uL (4.30-5.90) L 12/28/16 08:53 Hgb 10.9 gm/dL (13.0-17.5) L 12/28/16 08:53 Hct 34.1 % (39.0-53.0) L 12/28/16 08:53 MCV 86.6 fL (80.0-100.0) 12/28/16 08:53 MCH 27.7 pg (25.0-35.0) 12/28/16 08:53 MCHC 32.0 g/dL (31.0-37.0) 12/28/16 08:53 RDW 14.9 % (11.5-15.5) 12/28/16 08:53 Plt Count 188 k/uL (150-450) 12/28/16 08:53 Neutrophils % 83 % 12/28/16 08:53 Lymphocytes % 8 % 12/28/16 08:53 Monocytes % 5 % 12/28/16 08:53 Eosinophils % 1 % 12/28/16 08:53 Basophils % 0 % 12/28/16 08:53 Neutrophils # 5.2 k/uL (1.3-7.7) 12/28/16 08:53 Lymphocytes # 0.5 k/uL (1.0-4.8) L 12/28/16 08:53 Monocytes # 0.3 k/uL (0-1.0) 12/28/16 08:53 Eosinophils # 0.1 k/uL (0-0.7) 12/28/16 08:53 Basophils # 0.0 k/uL (0-0.2) 12/28/16 08:53 Hypochromasia Slight 12/28/16 08:53 PT 11.1 sec (9.0-12.0) 12/25/16 16:15 INR 1.1 (<1.1) 12/25/16 16:15 APTT 25.6 sec (22.0-30.0) 12/25/16 16:15 Sodium 133 mmol/L (137-145) L 12/28/16 18:15 Potassium 4.7 mmol/L (3.5-5.1) 12/28/16 18:15 Chloride 104 mmol/L (98-107) 12/28/16 18:15 Carbon Dioxide 19 mmol/L (22-30) L 12/28/16 18:15 Anion Gap 10 mmol/L 12/28/16 18:15 BUN 82 mg/dL (9-20) H* 12/28/16 18:15 Creatinine 3.43 mg/dL (0.66-1.25) H 12/28/16 18:15 Est GFR (MDRD) Af Amer 22 (>60 ml/min/1.73 sqM) 12/28/16 18:15 Est GFR (MDRD) Non-Af 18 (>60 ml/min/1.73 sqM) 12/28/16 18:15 Glucose 116 mg/dL (74-99) H 12/28/16 18:15 POC Glucose (mg/dL) 157 mg/dL (75-99) H 12/28/16 20:51 POC Glu Embossing Calender Operator ID Nette Aguillon 12/28/16 20:[address] Glu mg/dL 192 mg/dL 12/25/16 16:15 Hemoglobin A1c 8.3 % (4.2-6.1) H 12/25/16 16:15 Plasma Lactic Acid Nelson 1.7 mmol/L (0.7-2.0) 12/25/16 16:15 Calcium 7.9 mg/dL (8.4-10.2) L 12/28/16 18:15 Total Bilirubin 0.9 mg/dL (0.2-1.3) 12/28/16 08:53 AST 17 U/L (17-59) 12/28/16 08:53 ALT 31 U/L (21-72) 12/28/16 08:53 Alkaline Phosphatase 94 U/L (38-126) 12/28/16 08:53 Total Protein 4.8 g/dL (6.3-8.2) L 12/28/16 08:53 Albumin 2.8 g/dL (3.5-5.0) L 12/28/16 08:53 Urine Color Yellow 12/28/16 17:10 Urine Appearance Cloudy (Clear) 12/28/16 17:10 Urine pH 5.5 (5.0-8.0) 12/28/16 17:10 Ur Specific Hillister 1.012 (1.001-1.035) 12/28/16 17:10 Urine Protein 2+ (Negative) H 12/28/16 17:10 Urine Glucose (UA) Negative (Negative) 12/28/16 17:10 Urine Ketones Negative (Negative) 12/28/16 17:10 Urine Blood Negative (Negative) 12/28/16 17:10 Urine Nitrite Negative (Negative) 12/28/16 17:10 Urine Bilirubin Negative (Negative) 12/28/16 17:10 Urine Urobilinogen <2.0 mg/dL (<2.0) 12/28/16 17:10 Ur Leukocyte Esterase Negative (Negative) 12/28/16 17:10 Urine RBC 3 /hpf (0-5) 12/28/16 17:10 Urine WBC 2 /hpf (0-5) 12/28/16 17:10 Ur Squamous Epith Cells <1 /hpf (0-4) 12/28/16 17:10 Amorphous Sediment Rare /hpf (None) H 12/28/16 17:10 Urine Bacteria Rare /hpf (None) H 12/28/16 17:10 Random Vancomycin 14.4 ug/mL 12/27/16 07:47 Acetone, Qual Negative (Negative) 12/25/16 16:15 Microbiology 12/25/16 16:15 Blood Blood Culture - Preliminary No Growth after 72 hours 12/26/16 07:24 Nasal Swab Nasal Culture - Final Methicillin resist S. aureus Assessment and Plan (1) Nasal abscess Narrative/Plan: 71-year-old male status post liver transplantation in renal transplantation who is chronically immunosuppressed is developed an abscess to his nose near the bridge. He is status post incision and drainage from ENT surgery. She'll uncomfortable but improving. Cultures showing evidence of staph aureus await final identification. Given the nature of this infectious process, and his significant immunosuppressed state will likely do well to have at least 7-10 days of intravenous antibiotic therapy. May require MRSA therapy. Pain control appears to be adequate Creatinine is 3.04 which is concerning seen by Nephrology With this and isolation of MRSA, antibiotic changed to Ceftaroline to protect renal function with serious infection given liver and renal transplant status We do well with some protein supplementation and a multivitamin. Status: Acute (2) Fever Status: Acute (3) Liver transplant recipient Status: Acute
[2016-12-29] MEDS: CEFTAROLINE FOSAMIL 400 MG in SODIUM CHLORIDE 0.9% 250 ML IVPB SCH ×3 (00:49→21:24)
[2016-12-29 01:05] LABS: Glucose,Whole Blood 149 mg/dL (75-99)
[2016-12-29 07:25] LABS: Glucose,Whole Blood 114 mg/dL (75-99)
[2016-12-29] MEDS: MYCOPHENOLATE MOFETIL 500 MG TAB PO SCH ×2 (09:18→15:51)
[2016-12-29] MEDS: TACROLIMUS 1 MG CAP PO SCH ×2 (09:18→21:25)
[2016-12-29] MEDS: APIXABAN 2.5 MG TABLET PO SCH ×2 (09:18→21:26)
[2016-12-29] MEDS: SODIUM BICARBONATE TAB 650 MG TAB PO SCH ×3 (09:18→21:25)
[2016-12-29] MEDS: hydrALAZINE HCL 25 MG TAB PO SCH ×3 (09:18→21:26)
[2016-12-29] MEDS: predniSONE 2.5 MG TAB PO SCH (09:19)
[2016-12-29] MEDS: METOPROLOL TARTRATE 50 MG TAB PO SCH ×2 (09:19→21:26)
[2016-12-29] MEDS: ATORVASTATIN 20 MG TAB PO SCH (09:19)
[2016-12-29] MEDS: INSULIN LISPRO (humaLOG) 300 UNIT/3 ML VIAL SQ SCH ×4 (09:19→21:43)
[2016-12-29] MEDS: BACITRACIN 500 UNIT/GM OINT 28.4 GM TUBE TOPICAL SCH ×2 (09:19→21:26)
[2016-12-29] MEDS: FUROSEMIDE 40 MG TAB PO SCH ×2 (09:19→16:07)
[2016-12-29] MEDS: amLODIPine 10 MG TAB PO SCH (09:19)
[2016-12-29] MEDS: ALLOPURINOL 100 MG TAB PO SCH (09:19)
[2016-12-29] MEDS: INSULIN NPL/INSULIN LISPRO 100 UNIT/ML 10 ML VIAL (Humalog 75/25) SQ SCH ×2 (09:21→21:57)
[2016-12-29 10:54] LABS: Basophils % (A) 0 %; CH 27.8; CHCM 32.2; Eosinophils # (A) 0.1 k/uL (0-0.7); Eosinophils % (A) 1 %; HCT 33.8 % (39.0-53.0); HDW 3.15; HGB 10.7 gm/dL (13.0-17.5); Hypochromasia Slight; Luc # (Auto) 0.12; Luc % (Auto) 2; Lymphocytes # (A) 0.4 k/uL (1.0-4.8); Lymphocytes % (A) 7 %; MCH 27.5 pg (25.0-35.0); MCHC 31.6 g/dL (31.0-37.0); MCV 86.8 fL (80.0-100.0); Mean Platelet Volume 7.5; Monocytes # (A) 0.3 k/uL (0-1.0); Monocytes % (A) 6 %; Neutrophils # (A) 4.9 k/uL (1.3-7.7); Neutrophils % (A) 84 %; RBC 3.89 m/uL (4.30-5.90); RDW 14.9 % (11.5-15.5); WBC 5.9 k/uL (3.8-10.6); WBC (Perox) 6.31
[2016-12-29 11:06] LABS: Calcium 7.8 mg/dL (8.4-10.2); Potassium 4.7 mmol/L (3.5-5.1); Total Bilirubin 0.7 mg/dL (0.2-1.3); Total Protein 5.2 g/dL (6.3-8.2)
--- NOTE | 2016-12-29 11:21 | P.PN ---
Subjective Patient is seen in follow-up for acute kidney injury and renal transplant management. Renal function is worse with creatinine at 3.56 today. Patient presented with a nasal abscess and underwent incision and drainage this admission. Cultures are positive for MRSA. Patient has a donor renal allograft from 2010 done at [facility]. Patient recently underwent transplant biopsy in November 2016 which revealed acute cellular rejection along with diabetic kidney disease and moderate arteriosclerosis. His baseline GFR is near 25. Patient has systolic CHF with ejection fraction of 40% and is currently maintained on oral diuretics. He admits to good urine output. He was noted to have urinary retention and a Deng catheter was placed on December 28. Transplant ultrasound was noted to be negative. Oral intake is fair. Does admit to loose bowel movements. Denies chest pain or shortness of breath. Vital signs are stable. General: The patient appeared well nourished and normally developed. HEENT: Head exam is unremarkable. Neck is without jugular venous distension. No obvious drainage from site of infection. LUNGS: Lungs are clear to auscultation and percussion. Breath sounds decreased. HEART: Rate and Rhythm are regular. First and second heart sounds normal. No murmurs, rubs or gallops. ABDOMEN: Abdominal exam reveals normal bowel sounds. Non-tender and non- distended. No evidence of peritonitis. EXTREMITITES: 1+ edema. Objective - Vital Signs Vital signs: Vital Signs Temp 97.0 F L 12/29/16 07:00 Pulse 73 12/29/16 07:00 Resp 16 12/29/16 07:00 BP 135/62 12/29/16 07:00 Pulse Ox 97 12/29/16 07:00 Intake & Output 12/28/16 12/29/16 12/29/16 18:59 06:59 18:59 Output Total 100 Balance -100 Output: Urine 100 Other: Voiding Method Urinal # Voids 3 1 - Labs CBC & Chem 7: 12/29/16 09:30 12/29/16 09:30 Labs: Abnormal Lab Results - Last 24 Hours (Table) 12/28/16 12/28/16 12/28/16 Range/Units 11:53 17:10 17:56 RBC (4.30-5.90) m/uL Hgb (13.0-17.5) gm/dL Hct (39.0-53.0) % Lymphocytes # (1.0-4.8) k/uL Sodium (137-145) mmol/L Carbon Dioxide (22-30) mmol/L BUN (9-20) mg/dL Creatinine (0.66-1.25) mg/dL Glucose (74-99) mg/dL POC Glucose (mg/dL) 160 H 126 H (75-99) mg/dL Calcium (8.4-10.2) mg/dL AST (17-59) U/L Total Protein (6.3-8.2) g/dL Albumin (3.5-5.0) g/dL Urine Protein 2+ H (Negative) Amorphous Sediment Rare H (None) /hpf Urine Bacteria Rare H (None) /hpf 12/28/16 12/28/16 12/29/16 Range/Units 18:15 20:51 01:00 RBC (4.30-5.90) m/uL Hgb (13.0-17.5) gm/dL Hct (39.0-53.0) % Lymphocytes # (1.0-4.8) k/uL Sodium 133 L (137-145) mmol/L Carbon Dioxide 19 L (22-30) mmol/L BUN 82 H* (9-20) mg/dL Creatinine 3.43 H (0.66-1.25) mg/dL Glucose 116 H (74-99) mg/dL POC Glucose (mg/dL) 157 H 149 H (75-99) mg/dL Calcium 7.9 L (8.4-10.2) mg/dL AST (17-59) U/L Total Protein (6.3-8.2) g/dL Albumin (3.5-5.0) g/dL Urine Protein (Negative) Amorphous Sediment (None) /hpf Urine Bacteria (None) /hpf 12/29/16 12/29/16 12/29/16 Range/Units 07:23 09:30 09:30 RBC 3.89 L (4.30-5.90) m/uL Hgb 10.7 L (13.0-17.5) gm/dL Hct 33.8 L (39.0-53.0) % Lymphocytes # 0.4 L (1.0-4.8) k/uL Sodium 134 L (137-145) mmol/L Carbon Dioxide 13 L (22-30) mmol/L BUN 80 H* (9-20) mg/dL Creatinine 3.56 H (0.66-1.25) mg/dL Glucose 104 H (74-99) mg/dL POC Glucose (mg/dL) 114 H (75-99) mg/dL Calcium 7.8 L (8.4-10.2) mg/dL AST 16 L (17-59) U/L Total Protein 5.2 L (6.3-8.2) g/dL Albumin 2.8 L (3.5-5.0) g/dL Urine Protein (Negative) Amorphous Sediment (None) /hpf Urine Bacteria (None) /hpf Microbiology - Last 24 Hours (Table) 12/25/16 16:15 Blood Culture - Preliminary Blood No Growth after 72 hours 12/26/16 07:24 Nasal Culture - Final Nasal Swab Methicillin resist S. aureus Assessment and Plan Plan: Assessment: #1. Chronic kidney disease stage IV with baseline creatinine in the range of 2.5-3 secondary to history of ejection along with diabetic kidney disease as well as moderate arteriosclerosis noted on renal biopsy done in November 2016 at [facility]. #2. Nasal abscess status post incision and drainage on December 26. #3. Metabolic acidosis secondary to chronic kidney disease and diarrhea. #4. Status post donor renal allograft in 2010 at [facility]. #5. Systolic CHF with ejection fraction of 40%. #6. Insulin-dependent diabetes mellitus. #7. Hyponatremia. Appears hypervolemic in nature. Improved. #8. Acute allograft dysfunction secondary to ATN due to sepsis and urinary retention. Creatinine at 3.56 today. Urinalysis reveals 2+ proteinuria without any hematuria. No evidence of hydronephrosis on renal ultrasound. Plan: Maintain low salt/K and a 1.5 L fluid restricted diet. Continue with CellCept, Prograf and prednisone. Avoid nephrotoxic agents and hypotensive episodes. Increase sodium bicarbonate to 1300 mg 3 times daily. Antibiotics per infectious disease recommendations. Repeat electrolytes in the morning. Hold tonight's dose of CellCept due to diarrhea. Maintain Deng catheter. Check a Prograf level.
[2016-12-29 12:02] LABS: Glucose,Whole Blood 100 mg/dL (75-99)
[2016-12-29] MEDS ORDERED: SODIUM ACETATE 50 MEQ in WATER FOR INJECTION, STERILE 250 ML IV ONE ×2 (12:30→14:00)
--- NOTE | 2016-12-29 12:39 | P.PN ---
Subjective Patient is doing well today. He had a Deng catheter inserted last night secondary to urinary retention. No events overnight otherwise. Objective - Vital Signs Vital signs: Vital Signs Temp 97.0 F L 12/29/16 07:00 Pulse 73 12/29/16 07:00 Resp 16 12/29/16 07:00 BP 135/62 12/29/16 07:00 Pulse Ox 97 12/29/16 07:00 Intake & Output 12/28/16 12/29/16 12/29/16 18:59 06:59 18:59 Output Total 100 Balance -100 Output: Urine 100 Other: Voiding Method Urinal # Voids 3 1 - Exam General: The patient is awake and alert, in no distress. Nose appeared red and swollen worse on the left. Eye: there is normal conjunctiva bilaterally. Neck: The neck is supple, there is no JVD. Cardiovascular: Normal S1-S2, no S3-S4, no murmurs. Respiratory: Lungs clear to auscultation bilaterally Gastrointestinal: Abdomen is soft, nontender Musculoskeletal: There is no pedal edema. Neurological:. Speech is normal. Skin: Skin is warm and dry - Labs CBC & Chem 7: 12/29/16 09:30 12/29/16 09:30 Labs: Abnormal Lab Results - Last 24 Hours (Table) 12/28/16 12/28/16 12/28/16 Range/Units 17:10 17:56 18:15 RBC (4.30-5.90) m/uL Hgb (13.0-17.5) gm/dL Hct (39.0-53.0) % Lymphocytes # (1.0-4.8) k/uL Sodium 133 L (137-145) mmol/L Carbon Dioxide 19 L (22-30) mmol/L BUN 82 H* (9-20) mg/dL Creatinine 3.43 H (0.66-1.25) mg/dL Glucose 116 H (74-99) mg/dL POC Glucose (mg/dL) 126 H (75-99) mg/dL Calcium 7.9 L (8.4-10.2) mg/dL AST (17-59) U/L Total Protein (6.3-8.2) g/dL Albumin (3.5-5.0) g/dL Urine Protein 2+ H (Negative) Amorphous Sediment Rare H (None) /hpf Urine Bacteria Rare H (None) /hpf 12/28/16 12/29/16 12/29/16 Range/Units 20:51 01:00 07:23 RBC (4.30-5.90) m/uL Hgb (13.0-17.5) gm/dL Hct (39.0-53.0) % Lymphocytes # (1.0-4.8) k/uL Sodium (137-145) mmol/L Carbon Dioxide (22-30) mmol/L BUN (9-20) mg/dL Creatinine (0.66-1.25) mg/dL Glucose (74-99) mg/dL POC Glucose (mg/dL) 157 H 149 H 114 H (75-99) mg/dL Calcium (8.4-10.2) mg/dL AST (17-59) U/L Total Protein (6.3-8.2) g/dL Albumin (3.5-5.0) g/dL Urine Protein (Negative) Amorphous Sediment (None) /hpf Urine Bacteria (None) /hpf 12/29/16 12/29/16 12/29/16 Range/Units 09:30 09:30 11:57 RBC 3.89 L (4.30-5.90) m/uL Hgb 10.7 L (13.0-17.5) gm/dL Hct 33.8 L (39.0-53.0) % Lymphocytes # 0.4 L (1.0-4.8) k/uL Sodium 134 L (137-145) mmol/L Carbon Dioxide 13 L (22-30) mmol/L BUN 80 H* (9-20) mg/dL Creatinine 3.56 H (0.66-1.25) mg/dL Glucose 104 H (74-99) mg/dL POC Glucose (mg/dL) 100 H (75-99) mg/dL Calcium 7.8 L (8.4-10.2) mg/dL AST 16 L (17-59) U/L Total Protein 5.2 L (6.3-8.2) g/dL Albumin 2.8 L (3.5-5.0) g/dL Urine Protein (Negative) Amorphous Sediment (None) /hpf Urine Bacteria (None) /hpf Microbiology - Last 24 Hours (Table) 12/25/16 16:15 Blood Culture - Preliminary Blood No Growth after 72 hours 12/26/16 07:24 Nasal Culture - Final Nasal Swab Methicillin resist S. aureus Assessment and Plan Plan: #1 abscess to the left side of the nose status post incision and drainage by ENT. Infectious disease following. Antibiotics adjusted to Zosyn and vancomycin per Dr. Loya. Add Ultram for her better pain control. Culture growing presumptive staph aureus. Await further recognition per infectious disease #2 insulin-dependent diabetes mellitus with uncontrolled blood sugars. Improvement in blood sugars this morning. Insulin was increased yesterday. Continue to monitor #3 history of kidney and liver transplant stable at this time continue was current medications #4 underlying history of congestive heart failure stable at this time #5 underlying history of chronic renal failure , stage IV. will monitor kidney function daily #6 underlying history of chronic obstructive pulmonary disease stable at this time #7 Essential hypertension: Blood pressure stable #8 chronic kidney disease, stage IV. Creatinine has increased to 3.40 nephrology following. Urinary retention status post Deng catheter insertion. We will continue current regimen otherwise. Repeat lab work in the morning.
[2016-12-29] MEDS: MULTIVITAMINS, THERA 1 EACH TAB PO SCH (12:54)
[2016-12-29] MEDS: traMADol 50 MG TAB PO PRN (12:57)
[2016-12-29] MEDS ORDERED: LIDOCAINE URO-JET JELLY 2% 5 ML KIT URETHRAL ONE (16:42)
[2016-12-29] MEDS: HYDROmorphone 1 MG/ML 1 ML SYRINGE IV PRN (16:48)
[2016-12-29 16:58] LABS: Glucose,Whole Blood 96 mg/dL (75-99)
[2016-12-29 21:50] LABS: Glucose,Whole Blood 107 mg/dL (75-99)
[2016-12-30 02:31] LABS: Glucose,Whole Blood 73 mg/dL (75-99)
[2016-12-30 03:38] LABS: Glucose,Whole Blood 114 mg/dL (75-99)
[2016-12-30 07:25] LABS: Glucose,Whole Blood 105 mg/dL (75-99)
[2016-12-30 07:29] LABS: Basophils % (A) 0 %; CH 27.6; CHCM 32.9; Eosinophils # (A) 0.1 k/uL (0-0.7); Eosinophils % (A) 1 %; HCT 33.4 % (39.0-53.0); HDW 3.25; HGB 11.4 gm/dL (13.0-17.5); Luc # (Auto) 0.18; Luc % (Auto) 3; Lymphocytes # (A) 0.6 k/uL (1.0-4.8); Lymphocytes % (A) 10 %; MCH 28.6 pg (25.0-35.0); MCV 84.2 fL (80.0-100.0); Mean Platelet Volume 7.2; Monocytes # (A) 0.3 k/uL (0-1.0); Monocytes % (A) 6 %; Neutrophils # (A) 4.6 k/uL (1.3-7.7); Neutrophils % (A) 80 %; RBC 3.97 m/uL (4.30-5.90); WBC 5.8 k/uL (3.8-10.6); WBC (Perox) 6.07
[2016-12-30 07:50] LABS: Calcium 8.1 mg/dL (8.4-10.2); Potassium 4.7 mmol/L (3.5-5.1); Total Bilirubin 0.7 mg/dL (0.2-1.3); Total Protein 5.2 g/dL (6.3-8.2)
[2016-12-30] MEDS: CEFTAROLINE FOSAMIL 400 MG in SODIUM CHLORIDE 0.9% 250 ML IVPB SCH ×2 (08:29→21:39)
[2016-12-30] MEDS: SODIUM BICARBONATE TAB 650 MG TAB PO SCH ×3 (08:29→21:41)
[2016-12-30] MEDS: METOPROLOL TARTRATE 50 MG TAB PO SCH ×2 (08:31→21:40)
[2016-12-30] MEDS: TACROLIMUS 1 MG CAP PO SCH ×2 (08:31→21:40)
[2016-12-30] MEDS: amLODIPine 10 MG TAB PO SCH (08:32)
[2016-12-30] MEDS: ALLOPURINOL 100 MG TAB PO SCH (08:32)
[2016-12-30] MEDS: MYCOPHENOLATE MOFETIL 500 MG TAB PO SCH ×2 (08:32→21:40)
[2016-12-30] MEDS: ATORVASTATIN 20 MG TAB PO SCH (08:32)
[2016-12-30] MEDS: APIXABAN 2.5 MG TABLET PO SCH ×2 (08:32→21:37)
[2016-12-30] MEDS: hydrALAZINE HCL 25 MG TAB PO SCH ×3 (08:32→21:40)
[2016-12-30] MEDS: predniSONE 2.5 MG TAB PO SCH (08:33)
[2016-12-30] MEDS: INSULIN LISPRO (humaLOG) 300 UNIT/3 ML VIAL SQ SCH ×4 (08:33→21:38)
[2016-12-30] MEDS: BACITRACIN 500 UNIT/GM OINT 28.4 GM TUBE TOPICAL SCH ×2 (08:33→21:37)
[2016-12-30] MEDS: INSULIN NPL/INSULIN LISPRO 100 UNIT/ML 10 ML VIAL (Humalog 75/25) SQ SCH ×2 (08:38→21:39)
[2016-12-30] MEDS ORDERED: CALCITRIOL 0.25 MCG CAP PO SCH (09:00)
[2016-12-30] MEDS ORDERED: FUROSEMIDE 10 MG/ML 4 ML VIAL IV STA ×2 (11:00→18:20)
[2016-12-30] MEDS: FUROSEMIDE 40 MG TAB PO SCH (11:05)
--- NOTE | 2016-12-30 11:23 | P.PN ---
Subjective Patient is seen in follow-up for acute kidney injury and renal transplant management. Renal function is worse with creatinine at 3.88 today. Patient presented with a nasal abscess and underwent incision and drainage this admission. Cultures are positive for MRSA. Patient has a donor renal allograft from 2010 done at [facility]. Patient recently underwent transplant biopsy in November 2016 which revealed acute cellular rejection along with diabetic kidney disease and moderate arteriosclerosis. His baseline GFR is near 25. Patient has systolic CHF with ejection fraction of 40% and is currently maintained on oral diuretics. He was noted to have urinary retention and a Deng catheter was placed December 28. Urine output in the last 24 hours was about 780 mL. Transplant ultrasound was noted to be negative. Oral intake is fair. Does admit to loose bowel movements. Denies chest pain or shortness of breath. Vital signs are stable. General: The patient appeared well nourished and normally developed. HEENT: Head exam is unremarkable. Neck is without jugular venous distension. No obvious drainage from site of infection. LUNGS: Lungs are clear to auscultation and percussion. Breath sounds decreased. HEART: Rate and Rhythm are regular. First and second heart sounds normal. No murmurs, rubs or gallops. ABDOMEN: Abdominal exam reveals normal bowel sounds. Non-tender and non- distended. No evidence of peritonitis. EXTREMITITES: 1+ edema. Objective - Vital Signs Vital signs: Vital Signs Temp 97.3 F L 12/30/16 07:00 Pulse 74 12/30/16 08:00 Resp 16 12/30/16 07:00 BP 144/67 12/30/16 07:00 Pulse Ox 95 12/30/16 07:00 Intake & Output 12/29/16 12/30/16 12/30/16 18:59 06:59 18:59 Intake Total 740 Output Total 350 435 Balance -350 305 Intake: IV 250 Ceftaroline Fosamil 400 250 mg In Sodium Chloride 0.9 % 250 ml @ 250 mls/hr IVPB Q12HR [facility] Rx#: [id number] Oral 490 Output: Urine 350 435 Other: Voiding Method Indwelling Catheter Indwelling Catheter # Bowel Movements 3 - Labs CBC & Chem 7: 12/30/16 06:50 12/30/16 06:45 Labs: Abnormal Lab Results - Last 24 Hours (Table) 12/29/16 12/29/16 12/30/16 Range/Units 11:57 20:56 02:28 RBC (4.30-5.90) m/uL Hgb (13.0-17.5) gm/dL Hct (39.0-53.0) % Lymphocytes # (1.0-4.8) k/uL Sodium (137-145) mmol/L Carbon Dioxide (22-30) mmol/L BUN (9-20) mg/dL Creatinine (0.66-1.25) mg/dL POC Glucose (mg/dL) 100 H 107 H 73 L (75-99) mg/dL Calcium (8.4-10.2) mg/dL AST (17-59) U/L Total Protein (6.3-8.2) g/dL Albumin (3.5-5.0) g/dL 12/30/16 12/30/16 12/30/16 Range/Units 03:35 06:45 06:50 RBC 3.97 L (4.30-5.90) m/uL Hgb 11.4 L (13.0-17.5) gm/dL Hct 33.4 L (39.0-53.0) % Lymphocytes # 0.6 L (1.0-4.8) k/uL Sodium 136 L (137-145) mmol/L Carbon Dioxide 15 L (22-30) mmol/L BUN 81 H* (9-20) mg/dL Creatinine 3.88 H (0.66-1.25) mg/dL POC Glucose (mg/dL) 114 H (75-99) mg/dL Calcium 8.1 L (8.4-10.2) mg/dL AST 16 L (17-59) U/L Total Protein 5.2 L (6.3-8.2) g/dL Albumin 3.0 L (3.5-5.0) g/dL 12/30/16 Range/Units 07:18 RBC (4.30-5.90) m/uL Hgb (13.0-17.5) gm/dL Hct (39.0-53.0) % Lymphocytes # (1.0-4.8) k/uL Sodium (137-145) mmol/L Carbon Dioxide (22-30) mmol/L BUN (9-20) mg/dL Creatinine (0.66-1.25) mg/dL POC Glucose (mg/dL) 105 H (75-99) mg/dL Calcium (8.4-10.2) mg/dL AST (17-59) U/L Total Protein (6.3-8.2) g/dL Albumin (3.5-5.0) g/dL Microbiology - Last 24 Hours (Table) 12/25/16 16:15 Blood Culture - Preliminary Blood No Growth after 96 hours Assessment and Plan Plan: Assessment: #1. Chronic kidney disease stage IV with baseline creatinine in the range of 2.5-3 secondary to history of ejection along with diabetic kidney disease as well as moderate arteriosclerosis noted on renal biopsy done in November 2016 at [facility]. #2. Nasal abscess status post incision and drainage on December 26. #3. Metabolic acidosis secondary to chronic kidney disease and diarrhea. #4. Status post donor renal allograft in 2010 at [facility]. #5. Systolic CHF with ejection fraction of 40%. #6. Insulin-dependent diabetes mellitus. #7. Hyponatremia. Appears hypervolemic in nature. Improved. #8. Acute allograft dysfunction secondary to ATN due to sepsis and urinary retention. Creatinine at 3.88 today. Urinalysis reveals 2+ proteinuria without any hematuria. No evidence of hydronephrosis on renal ultrasound. Plan: Lasix 40 mg IV once today. Check chest x-ray. Maintain low salt/K and a 1.5 L fluid restricted diet. Continue with CellCept, Prograf and prednisone. Avoid nephrotoxic agents and hypotensive episodes. Maintain sodium bicarbonate 1300 mg 3 times daily. Antibiotics per infectious disease recommendations. Repeat electrolytes in the morning. Maintain Deng catheter. Await Prograf level.
--- NOTE | 2016-12-30 11:39 | XR ---
EXAMINATION TYPE: XR chest 2V DATE OF EXAM: 12/30/2016 HISTORY: SOB. REFERENCE: Previous study dated 11/27/2016. FINDINGS: The heart is mildly enlarged. There is vascular congestion and mild interstitial change. Pl eural spaces are clear. IMPRESSION: FINDINGS CONSISTENT WITH EARLY HEART FAILURE.
[2016-12-30] MEDS: MULTIVITAMINS, THERA 1 EACH TAB PO SCH (11:41)
[2016-12-30 12:29] LABS: Glucose,Whole Blood 95 mg/dL (75-99)
--- NOTE | 2016-12-30 14:06 | P.PN ---
Subjective Patient and his are concerned about worsening bilateral lower extremity edema with vesicular formation Objective - Vital Signs Vital signs: Vital Signs Temp 97.3 F L 12/30/16 07:00 Pulse 74 12/30/16 08:00 Resp 16 12/30/16 07:00 BP 144/67 12/30/16 07:00 Pulse Ox 95 12/30/16 07:00 Intake & Output 12/29/16 12/30/16 12/30/16 18:59 06:59 18:59 Intake Total 740 Output Total 350 435 Balance -350 305 Intake: IV 250 Ceftaroline Fosamil 400 250 mg In Sodium Chloride 0.9 % 250 ml @ 250 mls/hr IVPB Q12HR [facility] Rx#: [id number] Oral 490 Output: Urine 350 435 Other: Voiding Method Indwelling Catheter Indwelling Catheter # Bowel Movements 3 - Exam General: The patient is awake and alert, in no distress. Nose appeared red and swollen worse on the left. Eye: there is normal conjunctiva bilaterally. Neck: The neck is supple, there is no JVD. Cardiovascular: Normal S1-S2, no S3-S4, no murmurs. Respiratory: Lungs clear to auscultation bilaterally Gastrointestinal: Abdomen is soft, nontender Musculoskeletal: There is +2 pedal edema with vesicle formation. Neurological:. Speech is normal. Skin: Skin is warm and dry - Labs CBC & Chem 7: 12/30/16 06:50 12/30/16 06:45 Labs: Abnormal Lab Results - Last 24 Hours (Table) 12/29/16 12/30/16 12/30/16 Range/Units 20:56 02:28 03:35 RBC (4.30-5.90) m/uL Hgb (13.0-17.5) gm/dL Hct (39.0-53.0) % Lymphocytes # (1.0-4.8) k/uL Sodium (137-145) mmol/L Carbon Dioxide (22-30) mmol/L BUN (9-20) mg/dL Creatinine (0.66-1.25) mg/dL POC Glucose (mg/dL) 107 H 73 L 114 H (75-99) mg/dL Calcium (8.4-10.2) mg/dL AST (17-59) U/L Total Protein (6.3-8.2) g/dL Albumin (3.5-5.0) g/dL 12/30/16 12/30/16 12/30/16 Range/Units 06:45 06:50 07:18 RBC 3.97 L (4.30-5.90) m/uL Hgb 11.4 L (13.0-17.5) gm/dL Hct 33.4 L (39.0-53.0) % Lymphocytes # 0.6 L (1.0-4.8) k/uL Sodium 136 L (137-145) mmol/L Carbon Dioxide 15 L (22-30) mmol/L BUN 81 H* (9-20) mg/dL Creatinine 3.88 H (0.66-1.25) mg/dL POC Glucose (mg/dL) 105 H (75-99) mg/dL Calcium 8.1 L (8.4-10.2) mg/dL AST 16 L (17-59) U/L Total Protein 5.2 L (6.3-8.2) g/dL Albumin 3.0 L (3.5-5.0) g/dL Microbiology - Last 24 Hours (Table) 12/25/16 16:15 Blood Culture - Preliminary Blood No Growth after 96 hours Assessment and Plan Plan: #1 abscess to the left side of the nose status post incision and drainage by ENT. Infectious disease following. Antibiotics adjusted to Zosyn and vancomycin per Dr. Loya. Add Ultram for her better pain control. Culture growing presumptive staph aureus. Await further recognition per infectious disease #2 insulin-dependent diabetes mellitus with uncontrolled blood sugars. Improvement in blood sugars this morning. Insulin was increased yesterday. Continue to monitor #3 history of kidney and liver transplant stable at this time continue was current medications #4 underlying history of congestive heart failure stable at this time #5 underlying history of chronic renal failure , stage IV. will monitor kidney function daily #6 underlying history of chronic obstructive pulmonary disease stable at this time #7 Essential hypertension: Blood pressure stable #8 chronic kidney disease, stage IV. Creatinine has increased to 3.40 nephrology following. Urinary retention status post Deng catheter insertion. Patient will need a voiding trial before discharge Patient was given 1 dose of IV Lasix for evidence of fluid overload clinically and on chest x-ray. Lasix managed by nephrology. We will continue current regimen otherwise. Repeat lab work in the morning.
[2016-12-30 16:12] LABS: Calcium 7.9 mg/dL (8.4-10.2); Potassium 4.9 mmol/L (3.5-5.1)
[2016-12-30 16:50] LABS: Glucose,Whole Blood 129 mg/dL (75-99)
[2016-12-30 20:51] LABS: Glucose,Whole Blood 134 mg/dL (75-99)
[2016-12-31 02:13] LABS: Glucose,Whole Blood 121 mg/dL (75-99)
[2016-12-31 06:46] LABS: Glucose,Whole Blood 127 mg/dL (75-99)
[2016-12-31] MEDS: INSULIN LISPRO (humaLOG) 300 UNIT/3 ML VIAL SQ SCH ×4 (07:30→21:19)
[2016-12-31 07:31] LABS: Basophils % (A) 0 %; CH 27.9; CHCM 32.2; Eosinophils # (A) 0.1 k/uL (0-0.7); Eosinophils % (A) 1 %; HCT 32.9 % (39.0-53.0); HDW 3.15; HGB 10.4 gm/dL (13.0-17.5); Hypochromasia Slight; Luc # (Auto) 0.14; Luc % (Auto) 3; Lymphocytes # (A) 0.6 k/uL (1.0-4.8); Lymphocytes % (A) 12 %; MCH 27.6 pg (25.0-35.0); MCHC 31.6 g/dL (31.0-37.0); MCV 87.1 fL (80.0-100.0); Mean Platelet Volume 7.7; Monocytes # (A) 0.3 k/uL (0-1.0); Monocytes % (A) 6 %; Neutrophils # (A) 4.2 k/uL (1.3-7.7); Neutrophils % (A) 78 %; RBC 3.78 m/uL (4.30-5.90); RDW 15.1 % (11.5-15.5); WBC 5.3 k/uL (3.8-10.6); WBC (Perox) 5.49
[2016-12-31 07:55] LABS: Calcium 7.8 mg/dL (8.4-10.2); Potassium 4.6 mmol/L (3.5-5.1)
[2016-12-31] MEDS: CEFTAROLINE FOSAMIL 400 MG in SODIUM CHLORIDE 0.9% 250 ML IVPB SCH (08:50)
[2016-12-31] MEDS: ALLOPURINOL 100 MG TAB PO SCH (08:51)
[2016-12-31] MEDS: ATORVASTATIN 20 MG TAB PO SCH (08:51)
[2016-12-31] MEDS: APIXABAN 2.5 MG TABLET PO SCH ×2 (08:51→20:35)
[2016-12-31] MEDS: INSULIN NPL/INSULIN LISPRO 100 UNIT/ML 10 ML VIAL (Humalog 75/25) SQ SCH ×2 (08:51→21:19)
[2016-12-31] MEDS: SODIUM BICARBONATE TAB 650 MG TAB PO SCH ×3 (08:51→21:19)
[2016-12-31] MEDS: hydrALAZINE HCL 25 MG TAB PO SCH ×3 (08:51→21:19)
[2016-12-31] MEDS: predniSONE 2.5 MG TAB PO SCH (08:51)
[2016-12-31] MEDS: amLODIPine 10 MG TAB PO SCH (08:51)
[2016-12-31] MEDS: METOPROLOL TARTRATE 50 MG TAB PO SCH ×2 (08:51→20:35)
[2016-12-31] MEDS: TACROLIMUS 1 MG CAP PO SCH ×2 (08:52→20:35)
[2016-12-31] MEDS: BACITRACIN 500 UNIT/GM OINT 28.4 GM TUBE TOPICAL SCH ×2 (08:52→20:35)
[2016-12-31] MEDS: MYCOPHENOLATE MOFETIL 500 MG TAB PO SCH ×2 (08:52→20:35)
[2016-12-31 12:17] LABS: Glucose,Whole Blood 124 mg/dL (75-99)
[2016-12-31] MEDS: MULTIVITAMINS, THERA 1 EACH TAB PO SCH (12:23)
--- NOTE | 2016-12-31 12:39 | P.PN ---
Subjective Patient is a 71-year-old male with multiple medical problems who presented to emergency room was a chief complaint of pain and swelling in his nose with erythema and tenderness in the area, patient had fever of 101 in the emergency room he was started on IV Unasyn and IV vancomycin and was admitted to medical floor consultation for ENT was initiated for possible abscess drainage. Patient has a prolonged past medical history including history of chronic renal failure patient has a history of kidney transplant and liver transplant. He also has history of insulin-dependent diabetes mellitus and history of congestive heart failure. 12/27/16 Patient was seen by ENT specialist. Underwent incision and drainage of left nasal abscess. Culture pending. Remains on IV antibiotics. Awaiting ID evaluation. Patient reports having a lot of pain in that. He denies any chest pain or shortness of breath. Denies any nausea or vomiting. Denies any bowel movement changes or urinary symptoms. He does report having some small amounts of epistaxis. 12/28/2016 nasal abscess culture growing presumptive staph aureus. Infectious disease following. Patient still having pain and swelling. Maybe a slight increase in swelling near the tear ducts the left eye. Patient had no further epistaxis. Denies any chest pain shortness breath. Denies any nausea or vomiting. Reports regular problems. Denies any difficulty urinating 12/31/2016 patient lying in bed comfortably. Pain is controlled with pain medication. He still occasionally has some small nosebleeds. Creatinine has redness to 3.99. Hemoglobin strep to 10.4. Nephrology following and infectious disease. Patient did receive A dose of IV Lasix yesterday for some lower extremity edema Objective - Vital Signs Vital signs: Vital Signs Temp 97.9 F 12/31/16 07:00 Pulse 70 12/31/16 07:00 Resp 16 12/31/16 07:00 BP 136/57 12/31/16 07:00 Pulse Ox 94 L 12/31/16 07:00 Intake & Output 12/30/16 12/31/16 12/31/16 18:59 06:59 18:59 Intake Total 825 550 Output Total 600 700 Balance 225 -150 Intake: Oral 825 550 Output: Urine 600 700 Other: Voiding Method Indwelling Catheter Indwelling Catheter Indwelling Catheter # Voids 0 # Bowel Movements 0 - Exam HEENT left side of nose having some swelling. Bandage is clean dry and intact. Head normocephalic Neck supple Lungs clear to auscultation bilaterally no wheezing or crackles Heart regular rate and rhythm S1-S2, no rub or gallop Abdomen is soft nontender nondistended positive bowel sounds no hepatosplenomegaly Extremities legs are Mike wrapped with edema bilaterally Neuro alert and orientated to 3 - Labs CBC & Chem 7: 12/31/16 07:08 12/31/16 07:08 Labs: Abnormal Lab Results - Last 24 Hours (Table) 12/30/16 12/30/16 12/30/16 Range/Units 15:40 16:37 20:31 RBC (4.30-5.90) m/uL Hgb (13.0-17.5) gm/dL Hct (39.0-53.0) % Lymphocytes # (1.0-4.8) k/uL Chloride 108 H (98-107) mmol/L Carbon Dioxide 17 L (22-30) mmol/L BUN 80 H* (9-20) mg/dL Creatinine 3.95 H (0.66-1.25) mg/dL Glucose 120 H (74-99) mg/dL POC Glucose (mg/dL) 129 H 134 H (75-99) mg/dL Calcium 7.9 L (8.4-10.2) mg/dL 12/31/16 12/31/16 12/31/16 Range/Units 02:04 06:44 07:08 RBC 3.78 L (4.30-5.90) m/uL Hgb 10.4 L (13.0-17.5) gm/dL Hct 32.9 L (39.0-53.0) % Lymphocytes # 0.6 L (1.0-4.8) k/uL Chloride (98-107) mmol/L Carbon Dioxide (22-30) mmol/L BUN (9-20) mg/dL Creatinine (0.66-1.25) mg/dL Glucose (74-99) mg/dL POC Glucose (mg/dL) 121 H 127 H (75-99) mg/dL Calcium (8.4-10.2) mg/dL 12/31/16 12/31/16 Range/Units 07:08 11:50 RBC (4.30-5.90) m/uL Hgb (13.0-17.5) gm/dL Hct (39.0-53.0) % Lymphocytes # (1.0-4.8) k/uL Chloride 110 H (98-107) mmol/L Carbon Dioxide 16 L (22-30) mmol/L BUN 79 H (9-20) mg/dL Creatinine 3.99 H (0.66-1.25) mg/dL Glucose 112 H (74-99) mg/dL POC Glucose (mg/dL) 124 H (75-99) mg/dL Calcium 7.8 L (8.4-10.2) mg/dL Microbiology - Last 24 Hours (Table) 12/25/16 16:15 Blood Culture - Preliminary Blood No Growth after 120 hours Assessment and Plan Plan: #1 abscess to the left side of the nose status post incision and drainage by ENT. Nasal wound culture growing MRSA. Antibiotics adjusted to Teflaro by infectious disease #2 insulin-dependent diabetes mellitus with uncontrolled blood sugars. Blood sugar stable continue current regimen #3 history of kidney and liver transplant stable at this time continue was current medications #4 acute on chronic systolic CHF with mild exacerbation of lower extremity edema. Patient did receive 1 dose of IV Lasix yesterday. Continue to monitor #5 underlying history of chronic renal failure , stage IV. will monitor kidney function daily #6 underlying history of chronic obstructive pulmonary disease stable at this time #7 Essential hypertension: Blood pressure stable #8 chronic kidney disease, stage IV. Creatinine has increased to 3.99 nephrology following. #9 metabolic acidosis secondary to chronic kidney disease nephrology has increased sodium bicarbonate to 1300 mg twice a day #10 hyponatremia: Resolved #11 hyperkalemia: Continue low potassium diet. Now resolved #12 urinary retention: Has Deng catheter in place #13 anemia possibly related to his chronic kidney disease. However, will check iron studies I performed an examination of the patient and discussed their management with the physician Intensivist. I have reviewed the Physician Intensivist's notes and agree with the documented findings and plan of care
--- NOTE | 2016-12-31 12:50 | P.PN ---
Subjective Patient is seen in follow-up for acute kidney injury and renal transplant management. Renal function is worse with creatinine at 3.88 today. Patient presented with a nasal abscess and underwent incision and drainage this admission. Cultures are positive for MRSA. Patient has a donor renal allograft from 2010 done at [facility]. Patient recently underwent transplant biopsy in November 2016 which revealed acute cellular rejection along with diabetic kidney disease and moderate arteriosclerosis. His baseline GFR is near 25. Patient has systolic CHF with ejection fraction of 40%. He was noted to have urinary retention and a Deng catheter was placed December 28. Urine output in the last 24 hours was about 1.3 mL. Transplant ultrasound was noted to be negative. Oral intake is fair. Does admit to loose bowel movements but much improved. Denies chest pain or shortness of breath. Vital signs are stable. General: The patient appeared well nourished and normally developed. HEENT: Head exam is unremarkable. Neck is without jugular venous distension. No obvious drainage from site of infection. LUNGS: Lungs are clear to auscultation and percussion. Breath sounds decreased. HEART: Rate and Rhythm are regular. First and second heart sounds normal. No murmurs, rubs or gallops. ABDOMEN: Abdominal exam reveals normal bowel sounds. Non-tender and non- distended. No evidence of peritonitis. EXTREMITITES: 1+ edema. Objective - Vital Signs Vital signs: Vital Signs Temp 97.9 F 12/31/16 07:00 Pulse 70 12/31/16 07:00 Resp 16 12/31/16 07:00 BP 136/57 12/31/16 07:00 Pulse Ox 94 L 12/31/16 07:00 Intake & Output 12/30/16 12/31/16 12/31/16 18:59 06:59 18:59 Intake Total 825 550 Output Total 600 700 Balance 225 -150 Intake: Oral 825 550 Output: Urine 600 700 Other: Voiding Method Indwelling Catheter Indwelling Catheter Indwelling Catheter # Voids 0 # Bowel Movements 0 - Labs CBC & Chem 7: 12/31/16 07:08 12/31/16 07:08 Labs: Abnormal Lab Results - Last 24 Hours (Table) 12/30/16 12/30/16 12/30/16 Range/Units 15:40 16:37 20:31 RBC (4.30-5.90) m/uL Hgb (13.0-17.5) gm/dL Hct (39.0-53.0) % Lymphocytes # (1.0-4.8) k/uL Chloride 108 H (98-107) mmol/L Carbon Dioxide 17 L (22-30) mmol/L BUN 80 H* (9-20) mg/dL Creatinine 3.95 H (0.66-1.25) mg/dL Glucose 120 H (74-99) mg/dL POC Glucose (mg/dL) 129 H 134 H (75-99) mg/dL Calcium 7.9 L (8.4-10.2) mg/dL 12/31/16 12/31/16 12/31/16 Range/Units 02:04 06:44 07:08 RBC 3.78 L (4.30-5.90) m/uL Hgb 10.4 L (13.0-17.5) gm/dL Hct 32.9 L (39.0-53.0) % Lymphocytes # 0.6 L (1.0-4.8) k/uL Chloride (98-107) mmol/L Carbon Dioxide (22-30) mmol/L BUN (9-20) mg/dL Creatinine (0.66-1.25) mg/dL Glucose (74-99) mg/dL POC Glucose (mg/dL) 121 H 127 H (75-99) mg/dL Calcium (8.4-10.2) mg/dL 12/31/16 12/31/16 Range/Units 07:08 11:50 RBC (4.30-5.90) m/uL Hgb (13.0-17.5) gm/dL Hct (39.0-53.0) % Lymphocytes # (1.0-4.8) k/uL Chloride 110 H (98-107) mmol/L Carbon Dioxide 16 L (22-30) mmol/L BUN 79 H (9-20) mg/dL Creatinine 3.99 H (0.66-1.25) mg/dL Glucose 112 H (74-99) mg/dL POC Glucose (mg/dL) 124 H (75-99) mg/dL Calcium 7.8 L (8.4-10.2) mg/dL Microbiology - Last 24 Hours (Table) 12/25/16 16:15 Blood Culture - Preliminary Blood No Growth after 120 hours Assessment and Plan Plan: Assessment: #1. Chronic kidney disease stage IV with baseline creatinine in the range of 2.5-3 secondary to history of ejection along with diabetic kidney disease as well as moderate arteriosclerosis noted on renal biopsy done in November 2016 at [facility]. #2. Nasal abscess status post incision and drainage on December 26. #3. Metabolic acidosis secondary to chronic kidney disease and diarrhea. #4. Status post donor renal allograft in 2010 at [facility]. #5. Systolic CHF with ejection fraction of 40%. #6. Insulin-dependent diabetes mellitus. #7. Hyponatremia. Appears hypervolemic in nature. Improved. #8. Acute allograft dysfunction secondary to ATN due to sepsis and urinary retention. Creatinine at 3.99 today. Urinalysis reveals 2+ proteinuria without any hematuria. No evidence of hydronephrosis on renal ultrasound. Plan: Start Lasix 40 mg IV twice daily - patient has edema and chest x-ray also suggestive of heart failure. Maintain low salt/K and a 1.5 L fluid restricted diet. Continue with CellCept, Prograf and prednisone. Avoid nephrotoxic agents and hypotensive episodes. Maintain sodium bicarbonate 1300 mg 3 times daily. Antibiotics per infectious disease recommendations. Repeat electrolytes in the morning. Maintain Deng catheter. Await Prograf level.
[2016-12-31 13:09] LABS: % Iron Saturation 14.1 % (20-50)
[2016-12-31] MEDS ORDERED: SODIUM ACETATE 50 MEQ in WATER FOR INJECTION, STERILE 250 ML IV ONE (13:30)
[2016-12-31] MEDS: FUROSEMIDE 10 MG/ML 4 ML VIAL IV SCH ×2 (13:31→20:35)
[2016-12-31 13:36] VITALS: BMI 32.5
[2016-12-31 17:20] LABS: Glucose,Whole Blood 208 mg/dL (75-99)
[2016-12-31] MEDS: CEFTAROLINE FOSAMIL 300 MG in SODIUM CHLORIDE 0.9% 250 ML IVPB SCH (20:35)
[2016-12-31 20:52] LABS: Glucose,Whole Blood 208 mg/dL (75-99)
--- NOTE | 2016-12-31 21:15 | P.PN ---
Subjective Principal diagnosis: abscess of nose Very pleasant 71-year-old male known to the infectious disease service from his history of a left leg infection from [place] ago. Fortunately leg with salvage and is in relatively well. The patient has the very extensive past medical history related to his liver transplant nearly 15 years ago. He then developed renal failure and renal transplant about 6 years ago. He is chronically immunosuppressed but does relatively well. This had the sudden onset of pain and swelling to the left side of his nose. It was painful. He had a fever of 101. And he was admitted. He's been seen by ENT and has had a bedside incision and drainage of the significant abscess that penetrated intranasal. The patient is feeling better but still has some pain. He is denying further fever chills rigors or sweats but does feel poorly. His fever and chills at admission of now improved. Feeling better today, less pain and fever improving. His underlying renal failure has worsened and is being followed closely by nephrology. Objective - Vital Signs Vital signs: Vital Signs Temp 97.1 F L 12/31/16 15:00 Pulse 67 12/31/16 15:00 Resp 16 12/31/16 15:00 BP 133/66 12/31/16 15:00 Pulse Ox 95 12/31/16 15:00 Intake & Output 12/31/16 12/31/16 01/01/17 06:59 18:59 06:59 Intake Total 550 600 Output Total 700 400 Balance -150 200 Weight 99.79 kg Intake: Oral 550 600 Output: Urine 700 400 Other: Voiding Method Indwelling Catheter Indwelling Catheter # Voids 0 1 # Bowel Movements 0 - Exam 71-year-old male complains of significant pain to his nose relates it' s improved from admission. Fever has improved. HEENT: Anicteric conjunctiva are pink and moist oral mucosa is intact with no thrush The nose has evidence of the recent incision and drainage of the dressing at some place as well as what appears to be some packing. This is not removed since it was placed by the ENT surgeon. The site is tender. There is still some swelling to the nose especially at the bridge. No evidence of any periorbital cellulitis. No tenderness over the paravertebral space. Danielle is still very tender especially at the bridge of the nose. There is no bleeding at this point in time. Neck: The neck is supple without significant lymphadenopathy or thyromegaly. Lungs: Good bilateral air entry with some wheezing but no crackles There is no significant bronchial sounds. There is no egophony or dullness. Heart: Regular rate and rhythm with an audible S1-S2, no S3 no S4. There is no significant murmur click or rub, PMI was nondisplaced. Abdomen: Positive bowel sounds soft and nontender without palpable masses or organomegaly. There was no guarding or rebound. The significant surgical wounds from the liver transplantation are noted in healed Extremities: The upper extremities have excellent pulses they are symmetric, no significant petechiae or telangiectasia. No splinter hemorrhages were noted. The lower extremities are free from significant edema. The peripheral pulses were 2+ and symmetric. He has chronic lower show me edema and does wrap his legs and the ongoing basis. Neuro: Awake alert oriented to person place and time. There are no acute new gross focal sensory motor deficits. - Labs CBC & Chem 7: 12/31/16 07:08 12/31/16 07:08 Labs: Abnormal Lab Results - Last 24 Hours (Table) 12/31/16 12/31/16 12/31/16 Range/Units 02:04 06:44 07:08 RBC 3.78 L (4.30-5.90) m/uL Hgb 10.4 L (13.0-17.5) gm/dL Hct 32.9 L (39.0-53.0) % Lymphocytes # 0.6 L (1.0-4.8) k/uL Chloride (98-107) mmol/L Carbon Dioxide (22-30) mmol/L BUN (9-20) mg/dL Creatinine (0.66-1.25) mg/dL Glucose (74-99) mg/dL POC Glucose (mg/dL) 121 H 127 H (75-99) mg/dL Calcium (8.4-10.2) mg/dL Iron (49-181) ug/dL TIBC (261-462) ug/dL % Saturation (20-50) % 12/31/16 12/31/16 12/31/16 Range/Units 07:08 07:08 11:50 RBC (4.30-5.90) m/uL Hgb (13.0-17.5) gm/dL Hct (39.0-53.0) % Lymphocytes # (1.0-4.8) k/uL Chloride 110 H (98-107) mmol/L Carbon Dioxide 16 L (22-30) mmol/L BUN 79 H (9-20) mg/dL Creatinine 3.99 H (0.66-1.25) mg/dL Glucose 112 H (74-99) mg/dL POC Glucose (mg/dL) 124 H (75-99) mg/dL Calcium 7.8 L (8.4-10.2) mg/dL Iron 29 L (49-181) ug/dL TIBC 205 L (261-462) ug/dL % Saturation 14.1 L (20-50) % 12/31/16 12/31/16 Range/Units 17: 20:51 RBC (4.30-5.90) m/uL Hgb (13.0-17.5) gm/dL Hct (39.0-53.0) % Lymphocytes # (1.0-4.8) k/uL Chloride (98-107) mmol/L Carbon Dioxide (22-30) mmol/L BUN (9-20) mg/dL Creatinine (0.66-1.25) mg/dL Glucose (74-99) mg/dL POC Glucose (mg/dL) 208 H 208 H (75-99) mg/dL Calcium (8.4-10.2) mg/dL Iron (49-181) ug/dL TIBC (261-462) ug/dL % Saturation (20-50) % Microbiology - Last 24 Hours (Table) 12/25/16 16:15 Blood Culture - Final Blood No Growth after 144 hours Laboratory Results WBC 5.3 k/uL (3.8-10.6) 12/31/16 07:08 RBC 3.78 m/uL (4.30-5.90) L 12/31/16 07:08 Hgb 10.4 gm/dL (13.0-17.5) L 12/31/16 07:08 Hct 32.9 % (39.0-53.0) L 12/31/16 07:08 MCV 87.1 fL (80.0-100.0) 12/31/16 07:08 MCH 27.6 pg (25.0-35.0) 12/31/16 07:08 MCHC 31.6 g/dL (31.0-37.0) 12/31/16 07:08 RDW 15.1 % (11.5-15.5) 12/31/16 07:08 Plt Count 201 k/uL (150-450) 12/31/16 07:08 Neutrophils % 78 % 12/31/16 07:08 Lymphocytes % 12 % 12/31/16 07:08 Monocytes % 6 % 12/31/16 07:08 Eosinophils % 1 % 12/31/16 07:08 Basophils % 0 % 12/31/16 07:08 Neutrophils # 4.2 k/uL (1.3-7.7) 12/31/16 07:08 Lymphocytes # 0.6 k/uL (1.0-4.8) L 12/31/16 07:08 Monocytes # 0.3 k/uL (0-1.0) 12/31/16 07:08 Eosinophils # 0.1 k/uL (0-0.7) 12/31/16 07:08 Basophils # 0.0 k/uL (0-0.2) 12/31/16 07:08 Hypochromasia Slight 12/31/16 07:08 PT 11.1 sec (9.0-12.0) 12/25/16 16:15 INR 1.1 (<1.1) 12/25/16 16:15 APTT 25.6 sec (22.0-30.0) 12/25/16 16:15 Sodium 138 mmol/L (137-145) 12/31/16 07:08 Potassium 4.6 mmol/L (3.5-5.1) 12/31/16 07:08 Chloride 110 mmol/L (98-107) H 12/31/16 07:08 Carbon Dioxide 16 mmol/L (22-30) L 12/31/16 07:08 Anion Gap 12 mmol/L 12/31/16 07:08 BUN 79 mg/dL (9-20) H 12/31/16 07:08 Creatinine 3.99 mg/dL (0.66-1.25) H 12/31/16 07:08 Est GFR (MDRD) Af Amer 18 (>60 ml/min/1.73 sqM) 12/31/16 07:08 Est GFR (MDRD) Non-Af 15 (>60 ml/min/1.73 sqM) 12/31/16 07:08 Glucose 112 mg/dL (74-99) H 12/31/16 07:08 POC Glucose (mg/dL) 208 mg/dL (75-99) H 12/31/16 20:51 POC Glu Analysis Analyst Suzie May 12/31/16 20:[address] Glu mg/dL 192 mg/dL 12/25/16 16:15 Hemoglobin A1c 8.3 % (4.2-6.1) H 12/25/16 16:15 Plasma Lactic Acid Nelson 1.7 mmol/L (0.7-2.0) 12/25/16 16:15 Calcium 7.8 mg/dL (8.4-10.2) L 12/31/16 07:08 Iron 29 ug/dL (49-181) L 12/31/16 07:08 TIBC 205 ug/dL (261-462) L 12/31/16 07:08 % Saturation 14.1 % (20-50) L 12/31/16 07:08 Ferritin 320 ng/mL (18-464) 12/31/16 07:08 Total Bilirubin 0.7 mg/dL (0.2-1.3) 12/30/16 06:45 AST 16 U/L (17-59) L 12/30/16 06:45 ALT 30 U/L (21-72) 12/30/16 06:45 Alkaline Phosphatase 115 U/L (38-126) 12/30/16 06:45 Total Protein 5.2 g/dL (6.3-8.2) L 12/30/16 06:45 Albumin 3.0 g/dL (3.5-5.0) L 12/30/16 06:45 Urine Color Yellow 12/28/16 17:10 Urine Appearance Cloudy (Clear) 12/28/16 17:10 Urine pH 5.5 (5.0-8.0) 12/28/16 17:10 Ur Specific Grover 1.012 (1.001-1.035) 12/28/16 17:10 Urine Protein 2+ (Negative) H 12/28/16 17:10 Urine Glucose (UA) Negative (Negative) 12/28/16 17:10 Urine Ketones Negative (Negative) 12/28/16 17:10 Urine Blood Negative (Negative) 12/28/16 17:10 Urine Nitrite Negative (Negative) 12/28/16 17:10 Urine Bilirubin Negative (Negative) 12/28/16 17:10 Urine Urobilinogen <2.0 mg/dL (<2.0) 12/28/16 17:10 Ur Leukocyte Esterase Negative (Negative) 12/28/16 17:10 Urine RBC 3 /hpf (0-5) 12/28/16 17:10 Urine WBC 2 /hpf (0-5) 12/28/16 17:10 Ur Squamous Epith Cells <1 /hpf (0-4) 12/28/16 17:10 Amorphous Sediment Rare /hpf (None) H 12/28/16 17:10 Urine Bacteria Rare /hpf (None) H 12/28/16 17:10 Random Vancomycin 14.4 ug/mL 12/27/16 07:47 Tacrolimus 6.6 ng/mL (5.0-20.0) 12/30/16 06:40 Acetone, Qual Negative (Negative) 12/25/16 16:15 C. difficile (EIA) Intrp Negative (Negative) 12/29/16 15:00 Microbiology 12/25/16 16:15 Blood Blood Culture - Final No Growth after 144 hours 12/26/16 07:24 Nasal Swab Nasal Culture - Final Methicillin resist S. aureus Assessment and Plan (1) Nasal abscess Narrative/Plan: 71-year-old male status post liver transplantation in renal transplantation who is chronically immunosuppressed is developed an abscess to his nose near the bridge. He is status post incision and drainage from ENT surgery. She'll uncomfortable but improving. Cultures showing evidence of staph aureus await final identification. Given the nature of this infectious process, and his significant immunosuppressed state will likely do well to have at least 7-10 days of intravenous antibiotic therapy. May require MRSA therapy. Pain control appears to be adequate Creatinine is 3.04 which is concerning seen by Nephrology With this and isolation of MRSA, antibiotic changed to Ceftaroline to protect renal function with serious infection given liver and renal transplant status Continue protein supplementation and a multivitamin. No notation a plans for further surgical intervention. Status: Acute (2) Fever Status: Acute (3) Liver transplant recipient Status: Acute
[2017-01-01 02:36] LABS: Glucose,Whole Blood 104 mg/dL (75-99)
[2017-01-01 07:25] LABS: Glucose,Whole Blood 82 mg/dL (75-99)
[2017-01-01 08:09] LABS: Basophils % (A) 1 %; CH 27.7; Eosinophils # (A) 0.1 k/uL (0-0.7); Eosinophils % (A) 1 %; HCT 32.8 % (39.0-53.0); HDW 3.17; HGB 10.3 gm/dL (13.0-17.5); Hypochromasia Slight; Luc # (Auto) 0.15; Luc % (Auto) 3; Lymphocytes # (A) 0.6 k/uL (1.0-4.8); Lymphocytes % (A) 12 %; MCH 27.1 pg (25.0-35.0); MCHC 31.3 g/dL (31.0-37.0); MCV 86.7 fL (80.0-100.0); Mean Platelet Volume 7.2; Monocytes # (A) 0.3 k/uL (0-1.0); Monocytes % (A) 6 %; Neutrophils # (A) 3.8 k/uL (1.3-7.7); Neutrophils % (A) 77 %; RBC 3.78 m/uL (4.30-5.90); RDW 15.2 % (11.5-15.5); WBC 4.9 k/uL (3.8-10.6); WBC (Perox) 5.25
[2017-01-01 08:40] LABS: Calcium 7.8 mg/dL (8.4-10.2); Potassium 4.2 mmol/L (3.5-5.1)
[2017-01-01] MEDS: INSULIN LISPRO (humaLOG) 300 UNIT/3 ML VIAL SQ SCH ×4 (08:55→22:07)
[2017-01-01] MEDS: INSULIN NPL/INSULIN LISPRO 100 UNIT/ML 10 ML VIAL (Humalog 75/25) SQ SCH ×2 (08:55→22:07)
[2017-01-01] MEDS: METOPROLOL TARTRATE 50 MG TAB PO SCH ×2 (08:56→21:47)
[2017-01-01] MEDS: CEFTAROLINE FOSAMIL 300 MG in SODIUM CHLORIDE 0.9% 250 ML IVPB SCH ×2 (08:56→21:46)
[2017-01-01] MEDS: TACROLIMUS 1 MG CAP PO SCH ×2 (08:56→21:47)
[2017-01-01] MEDS: hydrALAZINE HCL 25 MG TAB PO SCH ×3 (08:56→21:47)
[2017-01-01] MEDS: APIXABAN 2.5 MG TABLET PO SCH ×2 (08:56→21:46)
[2017-01-01] MEDS: ALLOPURINOL 100 MG TAB PO SCH (08:56)
[2017-01-01] MEDS: FUROSEMIDE 10 MG/ML 4 ML VIAL IV SCH ×2 (08:56→21:46)
[2017-01-01] MEDS: SODIUM BICARBONATE TAB 650 MG TAB PO SCH ×3 (08:56→21:48)
[2017-01-01] MEDS: MYCOPHENOLATE MOFETIL 500 MG TAB PO SCH ×2 (08:56→21:47)
[2017-01-01] MEDS: ATORVASTATIN 20 MG TAB PO SCH (08:56)
[2017-01-01] MEDS: amLODIPine 10 MG TAB PO SCH (08:56)
[2017-01-01] MEDS: predniSONE 2.5 MG TAB PO SCH (08:56)
[2017-01-01] MEDS: BACITRACIN 500 UNIT/GM OINT 28.4 GM TUBE TOPICAL SCH ×2 (08:57→22:02)
[2017-01-01] MEDS ORDERED: SILVER sulfADIAZINE Cream 400 GM 1 APPLIC APPLIC TOPICAL SCH (09:00)
--- NOTE | 2017-01-01 10:12 | CDI ---
In responding to this query, please exercise your independent professional judgment. The [facility] Coding Staff and Clinical Documentation Specialists appreciate your assistance in clarifying documentation, maintaining compliance with coding guidelines, accurately documenting patients condition and capturing severity of illness. The fact that a question is asked does not imply that any particular answer is desired or expected. Communication forms are a method of clarifying documentation and are not made part of the Legal Health Record. Thank you in advance for your clarification. Last Revision, October 2016 Michelle Christie [address] [facility] [place] [address] Documentation Clarification Form Date: 01/01/2017 9:46:00 AM From: Bella Hammer RN, CDS Admit Date: 12/25/2016 6:11:00 PM Patient Name: Chester Martins Visit Number: [id number] Sil Duggan PA-C/Dr. Jayla Mahmood, 62 year old patient with history of Liver and Kidney transplant now CKD stage 4 admitted for Cellulitis and Abscess Left Nose. Incision and drainage performed by ENT 12/26. Wound cultures positive for MRSA. Deng inserted 12/28 for urinary retention. History/Risk Factors: Asthma, heart failure, DM2, Kidney and Liver transplant, CHF, Clinical Indicators: 3/4 SIRS criteria: VS on admission: 101.0 97 23 181/81 95, WBC 9.0, LACTIC ACID: 1.7, Renal progress notes 12/28-12/31 "acute allograft dysfunction secondary to ATN due to Sepsis and urinary retention" Treatment: NS bolus in ED, IV Vanco now changed to IV Ceftaroline for MRSA, Renal consult, ID consult, ID Consult: Yes Antibiotics: IV Ceftaroline IV Bolus: once in ED In your professional opinion, please clarify if these findings signify one of the following conditions, whether the condition is POA, and cause, if known: Sepsis SIRS, without underlying infectious process Sepsis, ruled out Severe Sepsis Unable to determine Other, please specify Present on Admission: Yes No * Identify the (suspected) organism * Link or clarify if there is associated (due to/with): - Organ failure - Shock SIRS Criteria: 2 or more of the following may indicate SIRS Temperature < 96.8F(36C) or > 101.0F (38C) Heart Rate > 90 bpm Respiratory Rate > 20 breaths/min or PaCO2 < 32 mmHg White Blood Cell Count > 12,000 or < 4,000 cells/mm3 or > 10% bands Lactate >2.0 mmol/L (>4.0 is equivalent to septic shock) Please document in your progress notes and discharge summary in order to capture severity of illness and risk of mortality. Include clinical findings that support your diagnosis. FYI: Press F11 to launch patient chart. Place X here if this finding has no clinical significance, is not applicable or if you are not able to provide any additional documentation. LUCIANAD
[2017-01-01] MEDS ORDERED: SODIUM ACETATE 50 MEQ in WATER FOR INJECTION, STERILE 250 ML IV ONE (10:46)
--- NOTE | 2017-01-01 11:29 | P.PN ---
Subjective Patient is seen in follow-up for acute kidney injury and renal transplant management. Renal function is worse with creatinine at 4.03today. Patient presented with a nasal abscess and underwent incision and drainage this admission. Cultures are positive for MRSA. Patient has a donor renal allograft from 2010 done at [facility]. Patient recently underwent transplant biopsy in November 2016 which revealed acute cellular rejection along with diabetic kidney disease and moderate arteriosclerosis. His baseline GFR is near 25. Patient has systolic CHF with ejection fraction of 40%. He was noted to have urinary retention and a Deng catheter was placed December 28. Urine output in the last 24 hours was about 1.3 L. Transplant ultrasound was noted to be negative. Prograf level normal at 6.6. Oral intake is fair. Does admit to loose bowel movements but much improved. Denies chest pain or shortness of breath. Vital signs are stable. General: The patient appeared well nourished and normally developed. HEENT: Head exam is unremarkable. Neck is without jugular venous distension. No obvious drainage from site of infection. LUNGS: Lungs are clear to auscultation and percussion. Breath sounds decreased. HEART: Rate and Rhythm are regular. First and second heart sounds normal. No murmurs, rubs or gallops. ABDOMEN: Abdominal exam reveals normal bowel sounds. Non-tender and non- distended. No evidence of peritonitis. EXTREMITITES: 1+ edema. Objective - Vital Signs Vital signs: Vital Signs Temp 97.3 F L 01/01/17 07:00 Pulse 63 01/01/17 07:00 Resp 20 01/01/17 08:00 BP 131/85 01/01/17 07:00 Pulse Ox 94 L 01/01/17 07:00 Intake & Output 12/31/16 01/01/17 01/01/17 18:59 06:59 18:59 Intake Total 600 500 Output Total 400 950 Balance 200 -450 Weight 99.79 kg Intake: Oral 600 500 Output: Urine 400 950 Other: Voiding Method Indwelling Catheter Indwelling Catheter Indwelling Catheter # Voids 1 - Labs CBC & Chem 7: 01/01/17 07:26 01/01/17 07:26 Labs: Abnormal Lab Results - Last 24 Hours (Table) 12/31/16 12/31/16 12/31/16 Range/Units 07:08 11:50 17:17 RBC (4.30-5.90) m/uL Hgb (13.0-17.5) gm/dL Hct (39.0-53.0) % Lymphocytes # (1.0-4.8) k/uL Chloride (98-107) mmol/L Carbon Dioxide (22-30) mmol/L BUN (9-20) mg/dL Creatinine (0.66-1.25) mg/dL POC Glucose (mg/dL) 124 H 208 H (75-99) mg/dL Calcium (8.4-10.2) mg/dL Iron 29 L (49-181) ug/dL TIBC 205 L (261-462) ug/dL % Saturation 14.1 L (20-50) % 12/31/16 01/01/17 01/01/17 Range/Units 20:51 02:34 07:26 RBC 3.78 L (4.30-5.90) m/uL Hgb 10.3 L (13.0-17.5) gm/dL Hct 32.8 L (39.0-53.0) % Lymphocytes # 0.6 L (1.0-4.8) k/uL Chloride (98-107) mmol/L Carbon Dioxide (22-30) mmol/L BUN (9-20) mg/dL Creatinine (0.66-1.25) mg/dL POC Glucose (mg/dL) 208 H 104 H (75-99) mg/dL Calcium (8.4-10.2) mg/dL Iron (49-181) ug/dL TIBC (261-462) ug/dL % Saturation (20-50) % 01/01/17 Range/Units 07:26 RBC (4.30-5.90) m/uL Hgb (13.0-17.5) gm/dL Hct (39.0-53.0) % Lymphocytes # (1.0-4.8) k/uL Chloride 111 H (98-107) mmol/L Carbon Dioxide 16 L (22-30) mmol/L BUN 74 H (9-20) mg/dL Creatinine 4.03 H (0.66-1.25) mg/dL POC Glucose (mg/dL) (75-99) mg/dL Calcium 7.8 L (8.4-10.2) mg/dL Iron (49-181) ug/dL TIBC (261-462) ug/dL % Saturation (20-50) % Microbiology - Last 24 Hours (Table) 12/25/16 16:15 Blood Culture - Final Blood No Growth after 144 hours Assessment and Plan Plan: Assessment: #1. Chronic kidney disease stage IV with baseline creatinine in the range of 2.5-3 secondary to history of ejection along with diabetic kidney disease as well as moderate arteriosclerosis noted on renal biopsy done in November 2016 at [facility]. #2. Nasal abscess status post incision and drainage on December 26. #3. Metabolic acidosis secondary to chronic kidney disease and diarrhea. #4. Status post donor renal allograft in 2010 at [facility]. #5. Systolic CHF with ejection fraction of 40%. #6. Insulin-dependent diabetes mellitus. #7. Hyponatremia. Appears hypervolemic in nature. Improved. #8. Acute allograft dysfunction secondary to ATN due to sepsis and urinary retention. Creatinine at 4.03 today. Urinalysis reveals 2+ proteinuria without any hematuria. No evidence of hydronephrosis on renal ultrasound. Prograf level normal. Plan: Continue Lasix 40 mg IV twice daily. Maintain low salt/K and a 1.5 L fluid restricted diet. Continue with CellCept, Prograf and prednisone. Avoid nephrotoxic agents and hypotensive episodes. Maintain sodium bicarbonate 1300 mg 3 times daily. Antibiotics per infectious disease recommendations. Repeat electrolytes in the morning. Maintain Deng catheter.
--- NOTE | 2017-01-01 11:42 | P.PN ---
Subjective Patient is a 71-year-old male with multiple medical problems who presented to emergency room was a chief complaint of pain and swelling in his nose with erythema and tenderness in the area, patient had fever of 101 in the emergency room he was started on IV Unasyn and IV vancomycin and was admitted to medical floor consultation for ENT was initiated for possible abscess drainage. Patient has a prolonged past medical history including history of chronic renal failure patient has a history of kidney transplant and liver transplant. He also has history of insulin-dependent diabetes mellitus and history of congestive heart failure. 12/27/16 Patient was seen by ENT specialist. Underwent incision and drainage of left nasal abscess. Culture pending. Remains on IV antibiotics. Awaiting ID evaluation. Patient reports having a lot of pain in that. He denies any chest pain or shortness of breath. Denies any nausea or vomiting. Denies any bowel movement changes or urinary symptoms. He does report having some small amounts of epistaxis. 12/28/2016 nasal abscess culture growing presumptive staph aureus. Infectious disease following. Patient still having pain and swelling. Maybe a slight increase in swelling near the tear ducts the left eye. Patient had no further epistaxis. Denies any chest pain shortness breath. Denies any nausea or vomiting. Reports regular problems. Denies any difficulty urinating 12/31/2016 patient lying in bed comfortably. Pain is controlled with pain medication. He still occasionally has some small nosebleeds. Creatinine has redness to 3.99. Hemoglobin strep to 10.4. Nephrology following and infectious disease. Patient did receive A dose of IV Lasix yesterday for some lower extremity edema On 01/01/2017 patient was seen and examined he is feeling better pain is well- controlled he was able to sleep last night denies any chest pain or shortness of breath denies any diarrhea, kidney function slightly worse with creatinine up to 4.03 Objective - Vital Signs Vital signs: Vital Signs Temp 97.3 F L 01/01/17 07:00 Pulse 63 01/01/17 07:00 Resp 20 01/01/17 08:00 BP 131/85 01/01/17 07:00 Pulse Ox 94 L 01/01/17 07:00 Intake & Output 12/31/16 01/01/17 01/01/17 18:59 06:59 18:59 Intake Total 600 500 Output Total 400 950 Balance 200 -450 Weight 99.79 kg Intake: Oral 600 500 Output: Urine 400 950 Other: Voiding Method Indwelling Catheter Indwelling Catheter Indwelling Catheter # Voids 1 - Exam In general patient is alert and oriented 3 in no apparent distress HEENT swelling and erythema with tenderness to the left side of the nose Neck is supple no JVD no goiter no lymphadenopathy Chest is clear to auscultation no crackles no wheezing Cardiac exam reveals regular heart sounds no gallops no murmurs Abdomen is soft nontender no organomegaly Extremity exam reveals no edema no cyanosis or clubbing - Labs CBC & Chem 7: 01/01/17 07:26 01/01/17 07:26 Labs: Abnormal Lab Results - Last 24 Hours (Table) 12/31/16 12/31/16 12/31/16 Range/Units 07:08 11:50 17:17 RBC (4.30-5.90) m/uL Hgb (13.0-17.5) gm/dL Hct (39.0-53.0) % Lymphocytes # (1.0-4.8) k/uL Chloride (98-107) mmol/L Carbon Dioxide (22-30) mmol/L BUN (9-20) mg/dL Creatinine (0.66-1.25) mg/dL POC Glucose (mg/dL) 124 H 208 H (75-99) mg/dL Calcium (8.4-10.2) mg/dL Iron 29 L (49-181) ug/dL TIBC 205 L (261-462) ug/dL % Saturation 14.1 L (20-50) % 12/31/16 01/01/17 01/01/17 Range/Units 20:51 02:34 07:26 RBC 3.78 L (4.30-5.90) m/uL Hgb 10.3 L (13.0-17.5) gm/dL Hct 32.8 L (39.0-53.0) % Lymphocytes # 0.6 L (1.0-4.8) k/uL Chloride (98-107) mmol/L Carbon Dioxide (22-30) mmol/L BUN (9-20) mg/dL Creatinine (0.66-1.25) mg/dL POC Glucose (mg/dL) 208 H 104 H (75-99) mg/dL Calcium (8.4-10.2) mg/dL Iron (49-181) ug/dL TIBC (261-462) ug/dL % Saturation (20-50) % 01/01/17 Range/Units 07:26 RBC (4.30-5.90) m/uL Hgb (13.0-17.5) gm/dL Hct (39.0-53.0) % Lymphocytes # (1.0-4.8) k/uL Chloride 111 H (98-107) mmol/L Carbon Dioxide 16 L (22-30) mmol/L BUN 74 H (9-20) mg/dL Creatinine 4.03 H (0.66-1.25) mg/dL POC Glucose (mg/dL) (75-99) mg/dL Calcium 7.8 L (8.4-10.2) mg/dL Iron (49-181) ug/dL TIBC (261-462) ug/dL % Saturation (20-50) % Microbiology - Last 24 Hours (Table) 12/25/16 16:15 Blood Culture - Final Blood No Growth after 144 hours Assessment and Plan Plan: #1 abscess to the left side of the nose, patient is admitted to medical floor he was started on IV antibiotic Teflaro, patient underwent drainage of his abscess by ENT, he is followed by infectious disease for antibiotic management #2 underlying history of insulin-dependent diabetes mellitus millimeters will increase insulin dose gradually due to uncontrolled glucose levels #3 history of kidney and liver transplant stable at this time continue was current medications #4 underlying history of congestive heart failure stable at this time #5 underlying history of chronic renal failure will monitor kidney function daily, kidney function is worse than baseline, nephrology following #6 underlying history of chronic obstructive pulmonary disease stable at this time Continue was current management with IV antibiotic Will follow closely
[2017-01-01] MEDS: MULTIVITAMINS, THERA 1 EACH TAB PO SCH (12:07)
[2017-01-01 12:36] LABS: Glucose,Whole Blood 142 mg/dL (75-99)
[2017-01-01] MEDS: ACETAMINOPHEN TAB 325 MG TAB PO PRN (12:37)
[2017-01-01 17:27] LABS: Glucose,Whole Blood 170 mg/dL (75-99)
[2017-01-01 20:58] LABS: Glucose,Whole Blood 194 mg/dL (75-99)
[2017-01-01] MEDS: SILVER sulfADIAZINE Cream 400 GM 1 APPLIC APPLIC TOPICAL SCH (22:02)
[2017-01-02 02:04] LABS: Glucose,Whole Blood 170 mg/dL (75-99)
[2017-01-02 07:30] LABS: Glucose,Whole Blood 135 mg/dL (75-99)
[2017-01-02 08:11] LABS: Basophils % (A) 1 %; CH 27.6; CHCM 33.2; Eosinophils # (A) 0.1 k/uL (0-0.7); Eosinophils % (A) 2 %; HCT 32.2 % (39.0-53.0); HDW 3.25; HGB 10.7 gm/dL (13.0-17.5); Luc % (Auto) 2; Lymphocytes # (A) 0.7 k/uL (1.0-4.8); Lymphocytes % (A) 13 %; MCH 27.7 pg (25.0-35.0); MCHC 33.1 g/dL (31.0-37.0); MCV 83.6 fL (80.0-100.0); Mean Platelet Volume 7.6; Monocytes # (A) 0.3 k/uL (0-1.0); Monocytes % (A) 5 %; Neutrophils % (A) 78 %; RBC 3.86 m/uL (4.30-5.90); RDW 15.3 % (11.5-15.5); WBC 5.1 k/uL (3.8-10.6); WBC (Perox) 5.08
[2017-01-02 08:12] LABS: Calcium 7.7 mg/dL (8.4-10.2); Potassium 4.1 mmol/L (3.5-5.1)
[2017-01-02] MEDS: MYCOPHENOLATE MOFETIL 500 MG TAB PO SCH ×2 (08:13→20:47)
[2017-01-02] MEDS: predniSONE 2.5 MG TAB PO SCH (08:13)
[2017-01-02] MEDS: amLODIPine 10 MG TAB PO SCH (08:13)
[2017-01-02] MEDS: TACROLIMUS 1 MG CAP PO SCH ×2 (08:13→20:47)
[2017-01-02] MEDS: METOPROLOL TARTRATE 50 MG TAB PO SCH ×2 (08:13→20:47)
[2017-01-02] MEDS: SODIUM BICARBONATE TAB 650 MG TAB PO SCH ×3 (08:13→21:06)
[2017-01-02] MEDS: hydrALAZINE HCL 25 MG TAB PO SCH ×3 (08:14→20:48)
[2017-01-02] MEDS: APIXABAN 2.5 MG TABLET PO SCH ×2 (08:14→20:46)
[2017-01-02] MEDS: BACITRACIN 500 UNIT/GM OINT 28.4 GM TUBE TOPICAL SCH ×2 (08:14→20:48)
[2017-01-02] MEDS: ALLOPURINOL 100 MG TAB PO SCH (08:14)
[2017-01-02] MEDS: ATORVASTATIN 20 MG TAB PO SCH (08:14)
[2017-01-02] MEDS: CEFTAROLINE FOSAMIL 300 MG in SODIUM CHLORIDE 0.9% 250 ML IVPB SCH ×2 (08:14→20:46)
[2017-01-02] MEDS: INSULIN NPL/INSULIN LISPRO 100 UNIT/ML 10 ML VIAL (Humalog 75/25) SQ SCH ×2 (08:15→21:03)
[2017-01-02] MEDS: INSULIN LISPRO (humaLOG) 300 UNIT/3 ML VIAL SQ SCH ×4 (08:16→21:03)
[2017-01-02] MEDS: ACETAMINOPHEN TAB 325 MG TAB PO PRN ×3 (08:19→23:12)
--- NOTE | 2017-01-02 10:29 | P.PN ---
Subjective Patient is seen in follow-up for acute kidney injury and renal transplant management. Renal function is worse with creatinine at 4.25 today. Patient presented with a nasal abscess and underwent incision and drainage this admission. Cultures are positive for MRSA. Patient has a donor renal allograft from 2010 done at [facility]. Patient recently underwent transplant biopsy in November 2016 which revealed acute cellular rejection along with diabetic kidney disease and moderate arteriosclerosis. His baseline GFR is near 25. Patient has systolic CHF with ejection fraction of 40%. He was noted to have urinary retention and a Deng catheter was placed December 28. Urine output in the last 24 hours was about 1.9 L. Transplant ultrasound was noted to be negative. Prograf level normal at 6.6. Oral intake is fair. Does admit to loose bowel movements but much improved. Denies chest pain or shortness of breath. No events overnight. Vital signs are stable. General: The patient appeared well nourished and normally developed. HEENT: Head exam is unremarkable. Neck is without jugular venous distension. No obvious drainage from site of infection. LUNGS: Lungs are clear to auscultation and percussion. Breath sounds decreased. HEART: Rate and Rhythm are regular. First and second heart sounds normal. No murmurs, rubs or gallops. ABDOMEN: Abdominal exam reveals normal bowel sounds. Non-tender and non- distended. No evidence of peritonitis. EXTREMITITES: 1+ edema. Objective - Vital Signs Vital signs: Vital Signs Temp 97.8 F 01/02/17 07:00 Pulse 61 01/02/17 07:00 Resp 16 01/02/17 07:00 BP 123/65 01/02/17 07:00 Pulse Ox 95 01/02/17 07:00 Intake & Output 01/01/17 01/02/17 01/02/17 18:59 06:59 18:59 Intake Total 100 Output Total 500 1400 Balance -500 -1300 Intake: Oral 100 Output: Urine 500 1400 Coude 700 Other: Voiding Method Indwelling Catheter Indwelling Catheter # Bowel Movements 1 - Labs CBC & Chem 7: 01/02/17 07:12 01/02/17 07:12 Labs: Abnormal Lab Results - Last 24 Hours (Table) 01/01/17 01/01/17 01/01/17 Range/Units 12:31 17:16 20:57 RBC (4.30-5.90) m/uL Hgb (13.0-17.5) gm/dL Hct (39.0-53.0) % Lymphocytes # (1.0-4.8) k/uL Chloride (98-107) mmol/L Carbon Dioxide (22-30) mmol/L BUN (9-20) mg/dL Creatinine (0.66-1.25) mg/dL Glucose (74-99) mg/dL POC Glucose (mg/dL) 142 H 170 H 194 H (75-99) mg/dL Calcium (8.4-10.2) mg/dL 01/02/17 01/02/17 01/02/17 Range/Units 02:02 07:05 07:12 RBC 3.86 L (4.30-5.90) m/uL Hgb 10.7 L (13.0-17.5) gm/dL Hct 32.2 L (39.0-53.0) % Lymphocytes # 0.7 L (1.0-4.8) k/uL Chloride (98-107) mmol/L Carbon Dioxide (22-30) mmol/L BUN (9-20) mg/dL Creatinine (0.66-1.25) mg/dL Glucose (74-99) mg/dL POC Glucose (mg/dL) 170 H 135 H (75-99) mg/dL Calcium (8.4-10.2) mg/dL 01/02/17 Range/Units 07:12 RBC (4.30-5.90) m/uL Hgb (13.0-17.5) gm/dL Hct (39.0-53.0) % Lymphocytes # (1.0-4.8) k/uL Chloride 109 H (98-107) mmol/L Carbon Dioxide 20 L (22-30) mmol/L BUN 69 H (9-20) mg/dL Creatinine 4.25 H (0.66-1.25) mg/dL Glucose 113 H (74-99) mg/dL POC Glucose (mg/dL) (75-99) mg/dL Calcium 7.7 L (8.4-10.2) mg/dL Assessment and Plan Plan: Assessment: #1. Chronic kidney disease stage IV with baseline creatinine in the range of 2.5-3 secondary to history of ejection along with diabetic kidney disease as well as moderate arteriosclerosis noted on renal biopsy done in November 2016 at [facility]. #2. Nasal abscess status post incision and drainage on December 26. #3. Metabolic acidosis secondary to chronic kidney disease and diarrhea. Improved. #4. Status post donor renal allograft in 2010 at [facility]. #5. Systolic CHF with ejection fraction of 40%. #6. Insulin-dependent diabetes mellitus. #7. Hyponatremia. Was hypervolemic in nature. Resolved. #8. Acute allograft dysfunction secondary to ATN due to sepsis and urinary retention. Creatinine at 4.25 today. Urinalysis reveals 2+ proteinuria without any hematuria. No evidence of hydronephrosis on renal ultrasound. Prograf level normal. Plan: Hold diuretics. Maintain low salt/K and a 1.5 L fluid restricted diet. Continue with CellCept, Prograf and prednisone. Avoid nephrotoxic agents and hypotensive episodes. Maintain sodium bicarbonate 1300 mg 3 times daily. Antibiotics per infectious disease recommendations. Repeat electrolytes in the morning. Maintain Deng catheter.
[2017-01-02 12:01] LABS: Glucose,Whole Blood 92 mg/dL (75-99)
[2017-01-02] MEDS: MULTIVITAMINS, THERA 1 EACH TAB PO SCH (12:48)
[2017-01-02] MEDS: FUROSEMIDE 10 MG/ML 4 ML VIAL IV SCH (12:49)
[2017-01-02 16:56] LABS: Glucose,Whole Blood 87 mg/dL (75-99)
--- NOTE | 2017-01-02 19:56 | P.PN ---
Subjective Principal diagnosis: abscess of nose Very pleasant 71-year-old male known to the infectious disease service from his history of a left leg infection from [place] years ago. Fortunately leg with salvage and is in relatively well. The patient has the very extensive past medical history related to his liver transplant nearly 15 years ago. He then developed renal failure and renal transplant about 6 years ago. He is chronically immunosuppressed but does relatively well. This had the sudden onset of pain and swelling to the left side of his nose. It was painful. He had a fever of 101. And he was admitted. He's been seen by ENT and has had a bedside incision and drainage of the significant abscess that penetrated intranasal. The patient is feeling better but still has some pain. He is denying further fever chills rigors or sweats but does feel poorly. His fever and chills at admission of now improved. Feeling better today, less pain and fever improving. His underlying renal failure has worsened and is being followed closely by nephrology. The renal failure has worsened further today. Creatinine 4.25. Objective - Vital Signs Vital signs: Vital Signs Temp 97.3 F L 01/02/17 15:00 Pulse 56 L 01/02/17 15:00 Resp 16 01/02/17 16:00 BP 129/69 01/02/17 15:00 Pulse Ox 97 01/02/17 15:00 Intake & Output 01/02/17 01/02/17 01/03/17 06:59 18:59 06:59 Intake Total 100 200 Output Total 1400 400 Balance -1300 -200 Intake: Oral 100 200 Output: Urine 1400 400 [place] 700 Other: Voiding Method Indwelling Catheter Indwelling Catheter - Exam 71-year-old male complains of significant pain to his nose relates it' s improved from admission. Fever has improved. HEENT: Anicteric conjunctiva are pink and moist oral mucosa is intact with no thrush The nose has evidence of the recent incision and drainage of the dressing at some place as well as what appears to be some packing. This is not removed since it was placed by the ENT surgeon. The site is tender. There is still some swelling to the nose especially at the bridge. No evidence of any periorbital cellulitis. No tenderness over the paravertebral space. Nose is waste machine tender especially at the bridge of the nose. There is no bleeding at this point in time. Is improved. Neck: The neck is supple without significant lymphadenopathy or thyromegaly. Lungs: Good bilateral air entry with some wheezing but no crackles There is no significant bronchial sounds. There is no egophony or dullness. Heart: Regular rate and rhythm with an audible S1-S2, no S3 no S4. There is no significant murmur click or rub, PMI was nondisplaced. Abdomen: Positive bowel sounds soft and nontender without palpable masses or organomegaly. There was no guarding or rebound. The significant surgical wounds from the liver transplantation are noted in healed Extremities: The upper extremities have excellent pulses they are symmetric, no significant petechiae or telangiectasia. No splinter hemorrhages were noted. The lower extremities are free from significant edema. The peripheral pulses were 2+ and symmetric. He has chronic lower show me edema and does wrap his legs and the ongoing basis. Neuro: Awake alert oriented to person place and time. There are no acute new gross focal sensory motor deficits. - Labs CBC & Chem 7: 01/02/17 07:12 01/02/17 07:12 Labs: Abnormal Lab Results - Last 24 Hours (Table) 01/01/17 01/02/17 01/02/17 Range/Units 20:57 02:02 07:05 RBC (4.30-5.90) m/uL Hgb (13.0-17.5) gm/dL Hct (39.0-53.0) % Lymphocytes # (1.0-4.8) k/uL Chloride (98-107) mmol/L Carbon Dioxide (22-30) mmol/L BUN (9-20) mg/dL Creatinine (0.66-1.25) mg/dL Glucose (74-99) mg/dL POC Glucose (mg/dL) 194 H 170 H 135 H (75-99) mg/dL Calcium (8.4-10.2) mg/dL 01/02/17 01/02/17 Range/Units 07:12 07:12 RBC 3.86 L (4.30-5.90) m/uL Hgb 10.7 L (13.0-17.5) gm/dL Hct 32.2 L (39.0-53.0) % Lymphocytes # 0.7 L (1.0-4.8) k/uL Chloride 109 H (98-107) mmol/L Carbon Dioxide 20 L (22-30) mmol/L BUN 69 H (9-20) mg/dL Creatinine 4.25 H (0.66-1.25) mg/dL Glucose 113 H (74-99) mg/dL POC Glucose (mg/dL) (75-99) mg/dL Calcium 7.7 L (8.4-10.2) mg/dL Laboratory Results WBC 5.1 k/uL (3.8-10.6) 01/02/17 07:12 RBC 3.86 m/uL (4.30-5.90) L 01/02/17 07:12 Hgb 10.7 gm/dL (13.0-17.5) L 01/02/17 07:12 Hct 32.2 % (39.0-53.0) L 01/02/17 07:12 MCV 83.6 fL (80.0-100.0) 01/02/17 07:12 MCH 27.7 pg (25.0-35.0) 01/02/17 07:12 MCHC 33.1 g/dL (31.0-37.0) 01/02/17 07:12 RDW 15.3 % (11.5-15.5) 01/02/17 07:12 Plt Count 249 k/uL (150-450) 01/02/17 07:12 Neutrophils % 78 % 01/02/17 07:12 Lymphocytes % 13 % 01/02/17 07:12 Monocytes % 5 % 01/02/17 07:12 Eosinophils % 2 % 01/02/17 07:12 Basophils % 1 % 01/02/17 07:12 Neutrophils # 4.0 k/uL (1.3-7.7) 01/02/17 07:12 Lymphocytes # 0.7 k/uL (1.0-4.8) L 01/02/17 07:12 Monocytes # 0.3 k/uL (0-1.0) 01/02/17 07:12 Eosinophils # 0.1 k/uL (0-0.7) 01/02/17 07:12 Basophils # 0.0 k/uL (0-0.2) 01/02/17 07:12 Hypochromasia Slight 01/01/17 07:26 PT 11.1 sec (9.0-12.0) 12/25/16 16:15 INR 1.1 (<1.1) 12/25/16 16:15 APTT 25.6 sec (22.0-30.0) 12/25/16 16:15 Sodium 140 mmol/L (137-145) 01/02/17 07:12 Potassium 4.1 mmol/L (3.5-5.1) 01/02/17 07:12 Chloride 109 mmol/L (98-107) H 01/02/17 07:12 Carbon Dioxide 20 mmol/L (22-30) L 01/02/17 07:12 Anion Gap 11 mmol/L 01/02/17 07:12 BUN 69 mg/dL (9-20) H 01/02/17 07:12 Creatinine 4.25 mg/dL (0.66-1.25) H 01/02/17 07:12 Est GFR (MDRD) Af Amer 17 (>60 ml/min/1.73 sqM) 01/02/17 07:12 Est GFR (MDRD) Non-Af 14 (>60 ml/min/1.73 sqM) 01/02/17 07:12 Glucose 113 mg/dL (74-99) H 01/02/17 07:12 POC Glucose (mg/dL) 87 mg/dL (75-99) 01/02/17 16:55 POC Glu Youtuber EDNA Adela Johns 01/02/17 16:[address] Glu mg/dL 192 mg/dL 12/25/16 16:15 Hemoglobin A1c 8.3 % (4.2-6.1) H 12/25/16 16:15 Plasma Lactic Acid Nelson 1.7 mmol/L (0.7-2.0) 12/25/16 16:15 Calcium 7.7 mg/dL (8.4-10.2) L 01/02/17 07:12 Iron 29 ug/dL (49-181) L 12/31/16 07:08 TIBC 205 ug/dL (261-462) L 12/31/16 07:08 % Saturation 14.1 % (20-50) L 12/31/16 07:08 Ferritin 320 ng/mL (18-464) 12/31/16 07:08 Total Bilirubin 0.7 mg/dL (0.2-1.3) 12/30/16 06:45 AST 16 U/L (17-59) L 12/30/16 06:45 ALT 30 U/L (21-72) 12/30/16 06:45 Alkaline Phosphatase 115 U/L (38-126) 12/30/16 06:45 Total Protein 5.2 g/dL (6.3-8.2) L 12/30/16 06:45 Albumin 3.0 g/dL (3.5-5.0) L 12/30/16 06:45 Urine Color Yellow 12/28/16 17:10 Urine Appearance Cloudy (Clear) 12/28/16 17:10 Urine pH 5.5 (5.0-8.0) 12/28/16 17:10 Ur Specific [place] 1.012 (1.001-1.035) 12/28/16 17:10 Urine Protein 2+ (Negative) H 12/28/16 17:10 Urine Glucose (UA) Negative (Negative) 12/28/16 17:10 Urine Ketones Negative (Negative) 12/28/16 17:10 Urine Blood Negative (Negative) 12/28/16 17:10 Urine Nitrite Negative (Negative) 12/28/16 17:10 Urine Bilirubin Negative (Negative) 12/28/16 17:10 Urine Urobilinogen <2.0 mg/dL (<2.0) 12/28/16 17:10 Ur Leukocyte Esterase Negative (Negative) 12/28/16 17:10 Urine RBC 3 /hpf (0-5) 12/28/16 17:10 Urine WBC 2 /hpf (0-5) 12/28/16 17:10 Ur Squamous Epith Cells <1 /hpf (0-4) 12/28/16 17:10 Amorphous Sediment Rare /hpf (None) H 12/28/16 17:10 Urine Bacteria Rare /hpf (None) H 12/28/16 17:10 Random Vancomycin 14.4 ug/mL 12/27/16 07:47 Tacrolimus 6.6 ng/mL (5.0-20.0) 12/30/16 06:40 Acetone, Qual Negative (Negative) 12/25/16 16:15 C. difficile (EIA) Intrp Negative (Negative) 12/29/16 15:00 Microbiology 12/25/16 16:15 Blood Blood Culture - Final No Growth after 144 hours 12/26/16 07:24 Nasal Swab Nasal Culture - Final Methicillin resist S. aureus Assessment and Plan (1) Nasal abscess Narrative/Plan: 71-year-old male status post liver transplantation in renal transplantation who is chronically immunosuppressed is developed an abscess to his nose near the bridge. He is status post incision and drainage from ENT surgery. She'll uncomfortable but improving. Cultures showing evidence of staph aureus await final identification. Given the nature of this infectious process, and his significant immunosuppressed state will likely do well to have at least 7-10 days of intravenous antibiotic therapy. Ceftaroline is being utilized. Pain control appears to be adequate Creatinine is 3.04 which is concerning seen by Nephrology With this and isolation of MRSA, antibiotic changed to Ceftaroline to protect renal function with serious infection given liver and renal transplant status Continue protein supplementation and a multivitamin. No notation a plans for further surgical intervention. Patient however does have worsening creatinine. 4.25 today. Nephrology is following. There is no contemplation of transfer to [facility] which is his transplant center. Status: Acute (2) Fever Status: Acute (3) Liver transplant recipient Status: Acute
[2017-01-02] MEDS: SILVER sulfADIAZINE Cream 400 GM 1 APPLIC APPLIC TOPICAL SCH (20:47)
[2017-01-02 21:06] LABS: Glucose,Whole Blood 155 mg/dL (75-99)
[2017-01-03 07:25] LABS: Glucose,Whole Blood 90 mg/dL (75-99)
[2017-01-03] MEDS: INSULIN LISPRO (humaLOG) 300 UNIT/3 ML VIAL SQ SCH ×4 (07:32→22:00)
[2017-01-03 07:58] LABS: Basophils % (A) 1 %; CH 27.2; CHCM 32.3; Eosinophils # (A) 0.1 k/uL (0-0.7); Eosinophils % (A) 1 %; HCT 34.9 % (39.0-53.0); HDW 3.37; HGB 11.5 gm/dL (13.0-17.5); Hypochromasia Slight; Luc # (Auto) 0.16; Luc % (Auto) 3; Lymphocytes # (A) 0.9 k/uL (1.0-4.8); Lymphocytes % (A) 14 %; MCV 84.7 fL (80.0-100.0); Mean Platelet Volume 7.6; Monocytes # (A) 0.3 k/uL (0-1.0); Monocytes % (A) 5 %; Neutrophils # (A) 4.7 k/uL (1.3-7.7); Neutrophils % (A) 76 %; RBC 4.11 m/uL (4.30-5.90); RDW 15.3 % (11.5-15.5); WBC 6.1 k/uL (3.8-10.6); WBC (Perox) 6.26
[2017-01-03 08:13] LABS: Calcium 8.1 mg/dL (8.4-10.2); Potassium 4.3 mmol/L (3.5-5.1)
[2017-01-03] MEDS: ALLOPURINOL 100 MG TAB PO SCH (08:21)
[2017-01-03] MEDS: amLODIPine 10 MG TAB PO SCH (08:21)
[2017-01-03] MEDS: INSULIN NPL/INSULIN LISPRO 100 UNIT/ML 10 ML VIAL (Humalog 75/25) SQ SCH ×2 (08:22→22:00)
[2017-01-03] MEDS: hydrALAZINE HCL 25 MG TAB PO SCH ×3 (08:22→22:01)
[2017-01-03] MEDS: BACITRACIN 500 UNIT/GM OINT 28.4 GM TUBE TOPICAL SCH ×2 (08:22→22:00)
[2017-01-03] MEDS: ATORVASTATIN 20 MG TAB PO SCH (08:22)
[2017-01-03] MEDS: APIXABAN 2.5 MG TABLET PO SCH ×2 (08:22→21:59)
[2017-01-03] MEDS: MYCOPHENOLATE MOFETIL 500 MG TAB PO SCH ×2 (08:23→22:01)
[2017-01-03] MEDS: METOPROLOL TARTRATE 50 MG TAB PO SCH ×2 (08:23→22:00)
[2017-01-03] MEDS: SODIUM BICARBONATE TAB 650 MG TAB PO SCH ×3 (08:23→22:02)
[2017-01-03] MEDS: predniSONE 2.5 MG TAB PO SCH (08:23)
[2017-01-03] MEDS: TACROLIMUS 1 MG CAP PO SCH ×2 (08:24→22:01)
[2017-01-03] MEDS: CEFTAROLINE FOSAMIL 300 MG in SODIUM CHLORIDE 0.9% 250 ML IVPB SCH ×2 (08:30→22:00)
--- NOTE | 2017-01-03 11:11 | P.PN ---
Subjective Patient is seen in follow-up for acute kidney injury and renal transplant management. Renal function is a little improved with creatinine at 4.0 to today. Patient presented with a nasal abscess and underwent incision and drainage this admission. Cultures are positive for MRSA. Patient has a donor renal allograft from 2010 done at [facility]. Patient recently underwent transplant biopsy in November 2016 which revealed acute cellular rejection along with diabetic kidney disease and moderate arteriosclerosis. His baseline GFR is near 25. Patient has systolic CHF with ejection fraction of 40%. He was noted to have urinary retention and a Deng catheter was placed December 28. Urine output in the last 24 hours was about 800 mL. Transplant ultrasound was noted to be negative. Prograf level normal at 6.6. Oral intake is fair. Does admit to loose bowel movements but much improved. Denies chest pain or shortness of breath. No events overnight. Vital signs are stable. General: The patient appeared well nourished and normally developed. HEENT: Head exam is unremarkable. Neck is without jugular venous distension. No obvious drainage from site of infection. LUNGS: Lungs are clear to auscultation and percussion. Breath sounds decreased. HEART: Rate and Rhythm are regular. First and second heart sounds normal. No murmurs, rubs or gallops. ABDOMEN: Abdominal exam reveals normal bowel sounds. Non-tender and non- distended. No evidence of peritonitis. EXTREMITITES: 1+ edema. Objective - Vital Signs Vital signs: Vital Signs Temp 96.9 F L 01/03/17 07:00 Pulse 60 01/03/17 07:00 Resp 18 01/03/17 07:00 BP 139/61 01/03/17 07:00 Pulse Ox 96 01/03/17 07:00 Intake & Output 01/02/17 01/03/17 01/03/17 18:59 06:59 18:59 Intake Total 200 250 Output Total 400 425 Balance -200 -175 Intake: Intake, IV Titration 250 Amount Ceftaroline Fosamil 300 250 mg In Sodium Chloride 0.9 % 250 ml @ 250 mls/hr IVPB Q12HR [facility] Rx#: [id number] Oral 200 Output: Urine 400 425 Other: Voiding Method Indwelling Catheter Indwelling Catheter Indwelling Catheter # Voids 0 # Bowel Movements 0 - Labs CBC & Chem 7: 01/03/17 07:40 01/03/17 07:40 Labs: Abnormal Lab Results - Last 24 Hours (Table) 01/02/17 01/03/17 01/03/17 Range/Units 21:02 07:40 07:40 RBC 4.11 L (4.30-5.90) m/uL Hgb 11.5 L (13.0-17.5) gm/dL Hct 34.9 L (39.0-53.0) % Lymphocytes # 0.9 L (1.0-4.8) k/uL Chloride 111 H (98-107) mmol/L Carbon Dioxide 18 L (22-30) mmol/L BUN 67 H (9-20) mg/dL Creatinine 4.02 H (0.66-1.25) mg/dL POC Glucose (mg/dL) 155 H (75-99) mg/dL Calcium 8.1 L (8.4-10.2) mg/dL Assessment and Plan Plan: Assessment: #1. Chronic kidney disease stage IV with baseline creatinine in the range of 2.5-3 secondary to history of ejection along with diabetic kidney disease as well as moderate arteriosclerosis noted on renal biopsy done in November 2016 at [facility]. #2. Nasal abscess status post incision and drainage on December 26. #3. Metabolic acidosis secondary to chronic kidney disease and diarrhea. Improved. #4. Status post donor renal allograft in 2010 at [facility]. #5. Systolic CHF with ejection fraction of 40%. #6. Insulin-dependent diabetes mellitus. #7. Hyponatremia. Was hypervolemic in nature. Resolved. #8. Acute allograft dysfunction secondary to ATN due to sepsis and urinary retention. Creatinine at 4.05 today. Urinalysis reveals 2+ proteinuria without any hematuria. No evidence of hydronephrosis on renal ultrasound. Prograf level normal. Plan: Continue to hold diuretics. Maintain low salt/K and a 1.5 L fluid restricted diet. Continue with CellCept, Prograf and prednisone. Avoid nephrotoxic agents and hypotensive episodes. Maintain sodium bicarbonate 1300 mg 3 times daily. Antibiotics per infectious disease recommendations. Repeat electrolytes in the morning. Maintain Deng catheter.
[2017-01-03 12:08] LABS: Glucose,Whole Blood 61 mg/dL (75-99)
[2017-01-03] MEDS: MULTIVITAMINS, THERA 1 EACH TAB PO SCH (12:13)
[2017-01-03 12:28] LABS: Glucose,Whole Blood 79 mg/dL (75-99)
[2017-01-03] MEDS: ACETAMINOPHEN TAB 325 MG TAB PO PRN (16:50)
[2017-01-03 17:07] LABS: Glucose,Whole Blood 101 mg/dL (75-99)
--- NOTE | 2017-01-03 18:26 | P.PN ---
Subjective Patient is a 71-year-old male with multiple medical problems who presented to emergency room was a chief complaint of pain and swelling in his nose with erythema and tenderness in the area, patient had fever of 101 in the emergency room he was started on IV Unasyn and IV vancomycin and was admitted to medical floor consultation for ENT was initiated for possible abscess drainage. Patient has a prolonged past medical history including history of chronic renal failure patient has a history of kidney transplant and liver transplant. He also has history of insulin-dependent diabetes mellitus and history of congestive heart failure. 12/27/16 Patient was seen by ENT specialist. Underwent incision and drainage of left nasal abscess. Culture pending. Remains on IV antibiotics. Awaiting ID evaluation. Patient reports having a lot of pain in that. He denies any chest pain or shortness of breath. Denies any nausea or vomiting. Denies any bowel movement changes or urinary symptoms. He does report having some small amounts of epistaxis. 12/28/2016 nasal abscess culture growing presumptive staph aureus. Infectious disease following. Patient still having pain and swelling. Maybe a slight increase in swelling near the tear ducts the left eye. Patient had no further epistaxis. Denies any chest pain shortness breath. Denies any nausea or vomiting. Reports regular problems. Denies any difficulty urinating 12/31/2016 patient lying in bed comfortably. Pain is controlled with pain medication. He still occasionally has some small nosebleeds. Creatinine has redness to 3.99. Hemoglobin strep to 10.4. Nephrology following and infectious disease. Patient did receive A dose of IV Lasix yesterday for some lower extremity edema On 01/01/2017 patient was seen and examined he is feeling better pain is well- controlled he was able to sleep last night denies any chest pain or shortness of breath denies any diarrhea, kidney function slightly worse with creatinine up to 4.03 Objective - Vital Signs Vital signs: Vital Signs Temp 97.7 F 01/03/17 15:00 Pulse 59 L 01/03/17 15:00 Resp 16 01/03/17 15:00 BP 116/57 01/03/17 15:00 Pulse Ox 98 01/03/17 15:41 Intake & Output 01/02/17 01/03/17 01/03/17 18:59 06:59 18:59 Intake Total 200 250 Output Total 400 425 Balance -200 -175 Weight 99.79 kg Intake: Intake, IV Titration 250 Amount Ceftaroline Fosamil 300 250 mg In Sodium Chloride 0.9 % 250 ml @ 250 mls/hr IVPB Q12HR [facility] Rx#: [id number] Oral 200 Output: Urine 400 425 Other: Voiding Method Indwelling Catheter Indwelling Catheter Indwelling Catheter # Voids 0 # Bowel Movements 0 0 - Exam In general patient is alert and oriented 3 in no apparent distress HEENT swelling and erythema with tenderness to the left side of the nose Neck is supple no JVD no goiter no lymphadenopathy Chest is clear to auscultation no crackles no wheezing Cardiac exam reveals regular heart sounds no gallops no murmurs Abdomen is soft nontender no organomegaly Extremity exam reveals no edema no cyanosis or clubbing - Labs CBC & Chem 7: 01/03/17 07:40 01/03/17 07:40 Labs: Abnormal Lab Results - Last 24 Hours (Table) 01/02/17 01/03/17 01/03/17 Range/Units 21:02 07:40 07:40 RBC 4.11 L (4.30-5.90) m/uL Hgb 11.5 L (13.0-17.5) gm/dL Hct 34.9 L (39.0-53.0) % Lymphocytes # 0.9 L (1.0-4.8) k/uL Chloride 111 H (98-107) mmol/L Carbon Dioxide 18 L (22-30) mmol/L BUN 67 H (9-20) mg/dL Creatinine 4.02 H (0.66-1.25) mg/dL POC Glucose (mg/dL) 155 H (75-99) mg/dL Calcium 8.1 L (8.4-10.2) mg/dL 01/03/17 01/03/17 Range/Units 12:07 17:04 RBC (4.30-5.90) m/uL Hgb (13.0-17.5) gm/dL Hct (39.0-53.0) % Lymphocytes # (1.0-4.8) k/uL Chloride (98-107) mmol/L Carbon Dioxide (22-30) mmol/L BUN (9-20) mg/dL Creatinine (0.66-1.25) mg/dL POC Glucose (mg/dL) 61 L 101 H (75-99) mg/dL Calcium (8.4-10.2) mg/dL Assessment and Plan Plan: #1 abscess to the left side of the nose, patient is admitted to medical floor he was started on IV antibiotic Teflaro, patient underwent drainage of his abscess by ENT, he is followed by infectious disease for antibiotic management. Plan is for a Picc line tomorrow and continuation of IV antibiotics as outpatient #2 underlying history of insulin-dependent diabetes mellitus millimeters will increase insulin dose gradually due to uncontrolled glucose levels #3 history of kidney and liver transplant stable at this time continue was current medications #4 underlying history of congestive heart failure stable at this time #5 underlying history of chronic renal failure will monitor kidney function daily, kidney function is worse than baseline, nephrology following #6 underlying history of chronic obstructive pulmonary disease stable at this time Continue was current management with IV antibiotic Will follow closely
[2017-01-03 20:51] LABS: Glucose,Whole Blood 109 mg/dL (75-99)
[2017-01-03] MEDS: SILVER sulfADIAZINE Cream 400 GM 1 APPLIC APPLIC TOPICAL SCH (22:02)
[2017-01-03] MEDS: traMADol 50 MG TAB PO PRN (22:05)
--- NOTE | 2017-01-03 22:55 | P.PN ---
Subjective Principal diagnosis: abscess of nose Very pleasant 71-year-old male known to the infectious disease service from his history of a left leg infection from [place] years ago. Fortunately leg with salvage and is in relatively well. The patient has the very extensive past medical history related to his liver transplant nearly 15 years ago. He then developed renal failure and renal transplant about 6 years ago. He is chronically immunosuppressed but does relatively well. This had the sudden onset of pain and swelling to the left side of his nose. It was painful. He had a fever of 101. And he was admitted. He's been seen by ENT and has had a bedside incision and drainage of the significant abscess that penetrated intranasal. The patient is feeling better but still has some pain. He is denying further fever chills rigors or sweats but does feel poorly. His fever and chills at admission of now improved. Feeling better today, less pain and fever improving. His underlying renal failure has worsened and is being followed closely by nephrology. The renal failure has improved slightly today. Creatinine 4.02 Objective - Vital Signs Vital signs: Vital Signs Temp 97.7 F 01/03/17 15:00 Pulse 59 L 01/03/17 15:00 Resp 16 01/03/17 15:00 BP 116/57 01/03/17 15:00 Pulse Ox 98 01/03/17 15:41 Intake & Output 01/03/17 01/03/17 01/04/17 06:59 18:59 06:59 Intake Total 250 Output Total 425 Balance -175 Weight 99.79 kg Intake: Intake, IV Titration 250 Amount Ceftaroline Fosamil 300 250 mg In Sodium Chloride 0.9 % 250 ml @ 250 mls/hr IVPB Q12HR [facility] Rx#: [id number] Output: Urine 425 Other: Voiding Method Indwelling Catheter Indwelling Catheter # Voids 0 # Bowel Movements 0 0 - Exam 71-year-old male complains of significant pain to his nose relates it' s improved from admission. Fever has improved. HEENT: Anicteric conjunctiva are pink and moist oral mucosa is intact with no thrush The nose has evidence of the recent incision and drainage of the dressing at some place as well as what appears to be some packing. This is not removed since it was placed by the ENT surgeon. The site is tender. There is still some swelling to the nose especially at the bridge. No evidence of any periorbital cellulitis. No tenderness over the paravertebral space. Nose is ointment mill tender especially at the bridge of the nose. There is no bleeding at this point in time. Is improved. Neck: The neck is supple without significant lymphadenopathy or thyromegaly. Lungs: Good bilateral air entry with some wheezing but no crackles There is no significant bronchial sounds. There is no egophony or dullness. Heart: Regular rate and rhythm with an audible S1-S2, no S3 no S4. There is no significant murmur click or rub, PMI was nondisplaced. Abdomen: Positive bowel sounds soft and nontender without palpable masses or organomegaly. There was no guarding or rebound. The significant surgical wounds from the liver transplantation are noted in healed Extremities: The upper extremities have excellent pulses they are symmetric, no significant petechiae or telangiectasia. No splinter hemorrhages were noted. The lower extremities are free from significant edema. The peripheral pulses were 2+ and symmetric. He has chronic lower show me edema and does wrap his legs and the ongoing basis. Neuro: Awake alert oriented to person place and time. There are no acute new gross focal sensory motor deficits. - Labs CBC & Chem 7: 01/03/17 07:40 01/03/17 07:40 Labs: Abnormal Lab Results - Last 24 Hours (Table) 01/03/17 01/03/17 01/03/17 Range/Units 07:40 07:40 12:07 RBC 4.11 L (4.30-5.90) m/uL Hgb 11.5 L (13.0-17.5) gm/dL Hct 34.9 L (39.0-53.0) % Lymphocytes # 0.9 L (1.0-4.8) k/uL Chloride 111 H (98-107) mmol/L Carbon Dioxide 18 L (22-30) mmol/L BUN 67 H (9-20) mg/dL Creatinine 4.02 H (0.66-1.25) mg/dL POC Glucose (mg/dL) 61 L (75-99) mg/dL Calcium 8.1 L (8.4-10.2) mg/dL 01/03/17 01/03/17 Range/Units 17:04 20:49 RBC (4.30-5.90) m/uL Hgb (13.0-17.5) gm/dL Hct (39.0-53.0) % Lymphocytes # (1.0-4.8) k/uL Chloride (98-107) mmol/L Carbon Dioxide (22-30) mmol/L BUN (9-20) mg/dL Creatinine (0.66-1.25) mg/dL POC Glucose (mg/dL) 101 H 109 H (75-99) mg/dL Calcium (8.4-10.2) mg/dL Laboratory Results WBC 6.1 k/uL (3.8-10.6) 01/03/17 07:40 RBC 4.11 m/uL (4.30-5.90) L 01/03/17 07:40 Hgb 11.5 gm/dL (13.0-17.5) L 01/03/17 07:40 Hct 34.9 % (39.0-53.0) L 01/03/17 07:40 MCV 84.7 fL (80.0-100.0) 01/03/17 07:40 MCH 28.0 pg (25.0-35.0) 01/03/17 07:40 MCHC 33.0 g/dL (31.0-37.0) 01/03/17 07:40 RDW 15.3 % (11.5-15.5) 01/03/17 07:40 Plt Count 280 k/uL (150-450) 01/03/17 07:40 Neutrophils % 76 % 01/03/17 07:40 Lymphocytes % 14 % 01/03/17 07:40 Monocytes % 5 % 01/03/17 07:40 Eosinophils % 1 % 01/03/17 07:40 Basophils % 1 % 01/03/17 07:40 Neutrophils # 4.7 k/uL (1.3-7.7) 01/03/17 07:40 Lymphocytes # 0.9 k/uL (1.0-4.8) L 01/03/17 07:40 Monocytes # 0.3 k/uL (0-1.0) 01/03/17 07:40 Eosinophils # 0.1 k/uL (0-0.7) 01/03/17 07:40 Basophils # 0.0 k/uL (0-0.2) 01/03/17 07:40 Hypochromasia Slight 01/03/17 07:40 PT 11.1 sec (9.0-12.0) 12/25/16 16:15 INR 1.1 (<1.1) 12/25/16 16:15 APTT 25.6 sec (22.0-30.0) 12/25/16 16:15 Sodium 142 mmol/L (137-145) 01/03/17 07:40 Potassium 4.3 mmol/L (3.5-5.1) 01/03/17 07:40 Chloride 111 mmol/L (98-107) H 01/03/17 07:40 Carbon Dioxide 18 mmol/L (22-30) L 01/03/17 07:40 Anion Gap 13 mmol/L 01/03/17 07:40 BUN 67 mg/dL (9-20) H 01/03/17 07:40 Creatinine 4.02 mg/dL (0.66-1.25) H 01/03/17 07:40 Est GFR (MDRD) Af Amer 18 (>60 ml/min/1.73 sqM) 01/03/17 07:40 Est GFR (MDRD) Non-Af 15 (>60 ml/min/1.73 sqM) 01/03/17 07:40 Glucose 79 mg/dL (74-99) 01/03/17 07:40 POC Glucose (mg/dL) 109 mg/dL (75-99) H 01/03/17 20:49 POC Glu Medical Secretary Teacher Melinda Goodwin 01/03/17 20:[address] Glu mg/dL 192 mg/dL 12/25/16 16:15 Hemoglobin A1c 8.3 % (4.2-6.1) H 12/25/16 16:15 Plasma Lactic Acid Nelson 1.7 mmol/L (0.7-2.0) 12/25/16 16:15 Calcium 8.1 mg/dL (8.4-10.2) L 01/03/17 07:40 Iron 29 ug/dL (49-181) L 12/31/16 07:08 TIBC 205 ug/dL (261-462) L 12/31/16 07:08 % Saturation 14.1 % (20-50) L 12/31/16 07:08 Ferritin 320 ng/mL (18-464) 12/31/16 07:08 Total Bilirubin 0.7 mg/dL (0.2-1.3) 12/30/16 06:45 AST 16 U/L (17-59) L 12/30/16 06:45 ALT 30 U/L (21-72) 12/30/16 06:45 Alkaline Phosphatase 115 U/L (38-126) 12/30/16 06:45 Total Protein 5.2 g/dL (6.3-8.2) L 12/30/16 06:45 Albumin 3.0 g/dL (3.5-5.0) L 12/30/16 06:45 Urine Color Yellow 12/28/16 17:10 Urine Appearance Cloudy (Clear) 12/28/16 17:10 Urine pH 5.5 (5.0-8.0) 12/28/16 17:10 Ur Specific [place] 1.012 (1.001-1.035) 12/28/16 17:10 Urine Protein 2+ (Negative) H 12/28/16 17:10 Urine Glucose (UA) Negative (Negative) 12/28/16 17:10 Urine Ketones Negative (Negative) 12/28/16 17:10 Urine Blood Negative (Negative) 12/28/16 17:10 Urine Nitrite Negative (Negative) 12/28/16 17:10 Urine Bilirubin Negative (Negative) 12/28/16 17:10 Urine Urobilinogen <2.0 mg/dL (<2.0) 12/28/16 17:10 Ur Leukocyte Esterase Negative (Negative) 12/28/16 17:10 Urine RBC 3 /hpf (0-5) 12/28/16 17:10 Urine WBC 2 /hpf (0-5) 12/28/16 17:10 Ur Squamous Epith Cells <1 /hpf (0-4) 12/28/16 17:10 Amorphous Sediment Rare /hpf (None) H 12/28/16 17:10 Urine Bacteria Rare /hpf (None) H 12/28/16 17:10 Random Vancomycin 14.4 ug/mL 12/27/16 07:47 Tacrolimus 6.6 ng/mL (5.0-20.0) 12/30/16 06:40 Acetone, Qual Negative (Negative) 12/25/16 16:15 C. difficile (EIA) Intrp Negative (Negative) 12/29/16 15:00 Microbiology 12/25/16 16:15 Blood Blood Culture - Final No Growth after 144 hours 12/26/16 07:24 Nasal Swab Nasal Culture - Final Methicillin resist S. aureus Assessment and Plan (1) Nasal abscess Narrative/Plan: 71-year-old male status post liver transplantation in renal transplantation who is chronically immunosuppressed is developed an abscess to his nose near the bridge. He is status post incision and drainage from ENT surgery. She'll uncomfortable but improving. Cultures showing evidence of staph aureus await final identification. Given the nature of this infectious process, and his significant immunosuppressed state will likely do well to have at least 7-10 days of intravenous antibiotic therapy. Ceftaroline is being utilized. Pain control appears to be adequate . With this and isolation of MRSA, antibiotic changed to Ceftaroline to protect renal function with serious infection given liver and renal transplant status Continue protein supplementation and a multivitamin. No notation a plans for further surgical intervention. Has had some improvement today. Creatinine is down to 4.02 Nephrology is following. No further plans for potential transfer to transferred center at this time We'll make arrangements for his outpatient intravenous antibiotic therapy. Status: Acute (2) Fever Status: Acute (3) Liver transplant recipient Status: Acute
[2017-01-04 07:02] LABS: Glucose,Whole Blood 102 mg/dL (75-99)
[2017-01-04 07:31] VITALS: PULSE 62
[2017-01-04] MEDS: MYCOPHENOLATE MOFETIL 500 MG TAB PO SCH (08:02)
[2017-01-04] MEDS: ATORVASTATIN 20 MG TAB PO SCH (08:02)
[2017-01-04] MEDS: SODIUM BICARBONATE TAB 650 MG TAB PO SCH ×2 (08:02→15:17)
[2017-01-04] MEDS: predniSONE 2.5 MG TAB PO SCH (08:02)
[2017-01-04] MEDS: TACROLIMUS 1 MG CAP PO SCH (08:02)
[2017-01-04] MEDS: amLODIPine 10 MG TAB PO SCH (08:02)
[2017-01-04] MEDS: hydrALAZINE HCL 25 MG TAB PO SCH ×2 (08:02→15:17)
[2017-01-04] MEDS: METOPROLOL TARTRATE 50 MG TAB PO SCH (08:02)
[2017-01-04] MEDS: ALLOPURINOL 100 MG TAB PO SCH (08:02)
[2017-01-04] MEDS: CEFTAROLINE FOSAMIL 300 MG in SODIUM CHLORIDE 0.9% 250 ML IVPB SCH ×2 (08:03→17:49)
[2017-01-04] MEDS: INSULIN LISPRO (humaLOG) 300 UNIT/3 ML VIAL SQ SCH ×3 (08:03→17:49)
[2017-01-04] MEDS: APIXABAN 2.5 MG TABLET PO SCH (08:03)
[2017-01-04] MEDS: BACITRACIN 500 UNIT/GM OINT 28.4 GM TUBE TOPICAL SCH (08:04)
[2017-01-04] MEDS: INSULIN NPL/INSULIN LISPRO 100 UNIT/ML 10 ML VIAL (Humalog 75/25) SQ SCH (08:04)
[2017-01-04 08:23] LABS: Basophils % (A) 1 %; CH 27.8; CHCM 32.9; Eosinophils # (A) 0.1 k/uL (0-0.7); Eosinophils % (A) 1 %; HCT 33.1 % (39.0-53.0); HDW 3.32; Luc # (Auto) 0.09; Luc % (Auto) 2; Lymphocytes # (A) 0.7 k/uL (1.0-4.8); Lymphocytes % (A) 15 %; MCH 28.3 pg (25.0-35.0); MCHC 33.4 g/dL (31.0-37.0); MCV 84.9 fL (80.0-100.0); Mean Platelet Volume 8.3; Monocytes # (A) 0.2 k/uL (0-1.0); Monocytes % (A) 4 %; Neutrophils # (A) 3.5 k/uL (1.3-7.7); Neutrophils % (A) 78 %; RDW 15.5 % (11.5-15.5); WBC 4.5 k/uL (3.8-10.6); WBC (Perox) 4.64
[2017-01-04 08:30] LABS: INR 1.2 (<1.1); Prothrombin Time 11.9 sec (9.0-12.0)
[2017-01-04 08:35] LABS: Calcium 7.9 mg/dL (8.4-10.2); Potassium 4.4 mmol/L (3.5-5.1); Total Bilirubin 0.6 mg/dL (0.2-1.3); Total Protein 4.9 g/dL (6.3-8.2)
--- NOTE | 2017-01-04 09:26 | P.PN ---
Subjective Patient is seen in follow-up for acute kidney injury and renal transplant management. Renal function is a little improved with creatinine at 3.93 to today. Patient presented with a nasal abscess and underwent incision and drainage this admission. Cultures are positive for MRSA. Patient has a donor renal allograft from 2010 done at [facility]. Patient recently underwent transplant biopsy in November 2016 which revealed acute cellular rejection along with diabetic kidney disease and moderate arteriosclerosis. His baseline GFR is near 25. Patient has systolic CHF with ejection fraction of 40%. He was noted to have urinary retention and a Deng catheter was placed December 28. Urine output in the last 24 hours was about 750 mL. Transplant ultrasound was noted to be negative. Prograf level normal at 6.6. Oral intake is fair. Does admit to loose bowel movements but much improved. Denies chest pain or shortness of breath. No events overnight. Vital signs are stable. General: The patient appeared well nourished and normally developed. HEENT: Head exam is unremarkable. Neck is without jugular venous distension. No obvious drainage from site of infection. LUNGS: Lungs are clear to auscultation and percussion. Breath sounds decreased. HEART: Rate and Rhythm are regular. First and second heart sounds normal. No murmurs, rubs or gallops. ABDOMEN: Abdominal exam reveals normal bowel sounds. Non-tender and non- distended. No evidence of peritonitis. EXTREMITITES: 1+ edema. Objective - Vital Signs Vital signs: Vital Signs Temp 98.5 F 01/04/17 07:00 Pulse 62 01/04/17 07:00 Resp 18 01/04/17 07:00 BP 144/66 01/04/17 07:00 Pulse Ox 96 01/04/17 07:00 Intake & Output 01/03/17 01/04/17 01/04/17 18:59 06:59 18:59 Output Total 750 Balance -750 Weight 99.79 kg Output: Urine 750 Other: Voiding Method Indwelling Catheter Indwelling Catheter # Voids 2 # Bowel Movements 0 - Labs CBC & Chem 7: 01/04/17 08:07 01/04/17 08:07 Labs: Abnormal Lab Results - Last 24 Hours (Table) 01/03/17 01/03/17 01/03/17 Range/Units 12:07 17:04 20:49 RBC (4.30-5.90) m/uL Hgb (13.0-17.5) gm/dL Hct (39.0-53.0) % Lymphocytes # (1.0-4.8) k/uL Chloride (98-107) mmol/L Carbon Dioxide (22-30) mmol/L BUN (9-20) mg/dL Creatinine (0.66-1.25) mg/dL Glucose (74-99) mg/dL POC Glucose (mg/dL) 61 L 101 H 109 H (75-99) mg/dL Calcium (8.4-10.2) mg/dL AST (17-59) U/L Total Protein (6.3-8.2) g/dL Albumin (3.5-5.0) g/dL 01/04/17 01/04/17 01/04/17 Range/Units 06:57 08:07 08:07 RBC 3.90 L (4.30-5.90) m/uL Hgb 11.0 L (13.0-17.5) gm/dL Hct 33.1 L (39.0-53.0) % Lymphocytes # 0.7 L (1.0-4.8) k/uL Chloride 110 H (98-107) mmol/L Carbon Dioxide 20 L (22-30) mmol/L BUN 63 H (9-20) mg/dL Creatinine 3.93 H (0.66-1.25) mg/dL Glucose 117 H (74-99) mg/dL POC Glucose (mg/dL) 102 H (75-99) mg/dL Calcium 7.9 L (8.4-10.2) mg/dL AST 13 L (17-59) U/L Total Protein 4.9 L (6.3-8.2) g/dL Albumin 2.7 L (3.5-5.0) g/dL Assessment and Plan Plan: Assessment: #1. Chronic kidney disease stage IV with baseline creatinine in the range of 2.5-3 secondary to history of ejection along with diabetic kidney disease as well as moderate arteriosclerosis noted on renal biopsy done in November 2016 at [facility]. #2. Nasal abscess status post incision and drainage on December 26. #3. Metabolic acidosis secondary to chronic kidney disease and diarrhea. Improved. #4. Status post donor renal allograft in 2010 at [facility]. #5. Systolic CHF with ejection fraction of 40%. #6. Insulin-dependent diabetes mellitus. #7. Hyponatremia. Was hypervolemic in nature. Resolved. #8. Acute allograft dysfunction secondary to ATN due to sepsis and urinary retention. Creatinine at 4.05 today. Urinalysis reveals 2+ proteinuria without any hematuria. No evidence of hydronephrosis on renal ultrasound. Prograf level normal. Plan: Continue to hold diuretics. Maintain low salt/K and a 1.5 L fluid restricted diet. Continue with CellCept, Prograf and prednisone. Avoid nephrotoxic agents and hypotensive episodes. Maintain sodium bicarbonate 1300 mg 3 times daily. Antibiotics per infectious disease recommendations. Repeat electrolytes in the morning. Maintain Deng catheter.
[2017-01-04 12:00] LABS: Glucose,Whole Blood 151 mg/dL (75-99)
[2017-01-04] MEDS: MULTIVITAMINS, THERA 1 EACH TAB PO SCH (12:49)
[2017-01-04] MEDS ORDERED: LIDOCAINE 2% INJ 20 MG/ML SQ ONE (13:39)
--- NOTE | 2017-01-04 14:19 | IR ---
EXAMINATION TYPE: IR cvc insert >=5 years DATE OF EXAM: 01/04/2017 COMPARISON: NONE CLINICAL HISTORY: Infection Needs long-term intravenous access for antibiotics. PROCEDURE: After informed consent, the skin overlying the right basilic vein was localized with ultrasound and n oted to be compressible and patent. An ultrasound image was obtained and submitted on the patient's chart. The overlying skin was prepped and draped and Lidocaine was used for local anesthesia. A ski n ian was made with a scalpel. Access was gained to the vein under ultrasound guidance with a 21 ga uge needle and a 0.018 inch wire was advanced. Access site was dilated with Peel-Away sheath and cat heter tailored to the appropriate length and advanced such that the distal tip is at the cavoatrial j unction. Spot image was obtained verifying placement. Catheter was fixed to the skin with suture an d a sterile dressing was placed following hemostasis. Catheter was aspirated and flushed with saline . Patient was discharged in stable condition without complication. Maximal barrier technique is util ized. Ultrasound image is documented on the chart. Ultrasound used with sterile technique. Fluoro time and fluoroscopic images submitted to document procedure: 277 intraoperative C-arm images, 0.5 minutes fluoroscopy time IMPRESSION: STATUS POST ULTRASOUND AND FLUOROSCOPIC GUIDED PICC LINE PLACEMENT, READY FOR USE. THIS PROCEDURE WAS PERFORMED BY THE UNDERSIGNED.
--- NOTE | 2017-01-04 14:45 | P.DS ---
Providers Date of admission: 12/25/16 18:11 Expected date of discharge: 01/04/17 Attending physician: Jayla Mahmood Consults: 12/25/16 18:08 Consult Physician Urgent Consulting Provider: Rolando Coon Consult Reason/Comments: Nasal abscess Do you want consulting provider notified?: Yes 12/26/16 17:52 Consult Physician Routine Consulting Provider: Chester Loya Consult Reason/Comments: nose abcess Do you want consulting provider notified?: Yes 12/27/16 12:22 Consult Physician Routine Consulting Provider: Kerrie Pham Consult Reason/Comments: worsening kidney function Do you want consulting provider notified?: Yes Primary care physician: Jayla Mahmood [facility] Hospital Course: Discharge diagnosis #1 abscess to the left side of the nose with sepsis on presentation. Status post incision and drainage of abscess by ENT service. Culture grew MRSA. Patient is maintained on Teflaro IV antibiotics for 1 week. Patient will receive IV antibiotics at the was percent or #2 insulin-dependent diabetes mellitus with uncontrolled blood sugars. Blood sugar stable continue current regimen #3 history of kidney and liver transplant stable at this time continue was current medications #4 acute on chronic systolic CHF with mild exacerbation of lower extremity edema. Patient had received 2 doses of IV Lasix during this admission. #5 underlying history of chronic renal failure , stage IV. secondary to history of rejection along with diabetic kidney disease as well as moderate arteriosclerosis noted on renal biopsy done in November 2016 at [facility]. #6 underlying history of chronic obstructive pulmonary disease stable at this time #7 Essential hypertension: Blood pressure stable #8 metabolic acidosis secondary to chronic kidney disease nephrology has increased sodium bicarbonate to 1300 mg twice a day. #9 hyponatremia: Resolved #10 Acute allograft dysfunction secondary to ATN due to sepsis and urinary retention. Creatinine at 3.93 today. Urinalysis reveals 2+ proteinuria without any hematuria. No evidence of hydronephrosis on renal ultrasound. Prograf level normal. Nephrology following. Nephrology did add prednisone 2.5 mg daily. We'll continue this medication at discharge Hospital course Patient is a 71-year-old male with multiple medical problems who presented to emergency room was a chief complaint of pain and swelling in his nose with erythema and tenderness in the area, patient had fever of 101 in the emergency room he was started on IV Unasyn and IV vancomycin and was admitted to medical floor consultation for ENT was initiated for possible abscess drainage. Patient has a prolonged past medical history including history of chronic renal failure patient has a history of kidney transplant and liver transplant. He also has history of insulin-dependent diabetes mellitus and history of congestive heart failure. Patient was seen by ENT service and underwent incision and drainage of left nasal abscess. Cultures were obtained. Culture grew MRSA. Antibiotics adjusted per infectious disease specialist due to the kidney function try to avoid vancomycin. Therefore they placed him on Teflaro patient is tolerating this well. Patient will continue this medication for one more week via PICC line. He will receive treatment at the [facility]. Patient also followed by nephrology. He did have worsening kidney function during this admission. Nephrology has adjust medications they do have been holding the Lasix due to worsening kidney function. Creatinine at discharge is 3.99. Patient will have labs monitored outpatient. Infectious disease have ordered a CBC and BMP. Patient is medically stable for discharge. We'll have him follow-up with Dr. Loya and Dr. Wong in the outpatient setting. He'll follow up with Dr. Mahmood next week. Patient is medically stable for discharge. Please refer to chart for any further details. I performed an examination of the patient and discussed their management with the physician Warehouse Packer. I have reviewed the Physician Warehouse Packer's notes and agree with the documented findings and plan of care Patient Condition at Discharge: Stable Plan - Discharge Summary New Discharge Prescriptions: New Ceftaroline Fosamil [Teflaro] 300 mg IVPB Q12H #14 bag Bacitracin Oint 1 applic TOPICAL BID #1 tube Multivitamins, Thera [Multivitamin (formulary)] 1 each PO DAILY@1200 #30 tab predniSONE 2.5 mg PO DAILY #30 tab Sodium Bicarbonate Tab 1,300 mg PO TID #90 tab traMADol HCl [Ultram] 50 mg PO TID PRN #42 tab PRN Reason: Pain Continue Atorvastatin [Lipitor] 20 mg PO DAILY Tacrolimus [Prograf] 3 mg PO QAM Apixaban [Eliquis] 2.5 mg PO BID #60 tablet Calcitriol [Rocaltrol] 0.25 mcg PO LARA Gabapentin [Neurontin] 100 mg PO TID PRN PRN Reason: Pain Allopurinol [Zyloprim] 100 mg PO DAILY Tacrolimus [Prograf] 4 mg PO HS Ipratropium Carmel [Atrovent Hfa] 2 puff INHALATION RT-QID PRN PRN Reason: Shortness Of Breath Insulin NPL/Insulin Lispro [humaLOG MIX 75-25 VIAL] 15 unit SQ HS Insulin NPL/Insulin Lispro [humaLOG MIX 75-25 VIAL] 20 unit SQ QAM Ergocalciferol (Vitamin D2) [Vitamin D2] 50,000 unit PO QMONTH Budesonide [Pulmicort] 0.5 mg INHALATION RT-BID PRN PRN Reason: Shortness Of Breath Furosemide [Lasix] 40 mg PO BID #60 tablet hydrALAZINE HCL [Apresoline] 25 mg PO TID #90 tab amLODIPine BESYLATE [Norvasc] 10 mg PO DAILY Aspirin EC [Ecotrin Low Dose] 81 mg PO DAILY Metoprolol Tartrate [Lopressor] 50 mg PO HS Metoprolol Tartrate [Lopressor] 100 mg PO QAM Mycophenolate Mofetil [Cellcept] 500 mg PO BID Discontinued Sodium Bicarbonate Tab 650 mg PO BID Discharge Medication List Atorvastatin [Lipitor] 20 mg PO DAILY 08/18/14 [History] Tacrolimus [Prograf] 3 mg PO QAM 08/18/14 [History] Apixaban [Eliquis] 2.5 mg PO BID #60 tablet 06/16/15 [Rx] Allopurinol [Zyloprim] 100 mg PO DAILY 10/10/16 [History] Calcitriol [Rocaltrol] 0.25 mcg PO LARA 10/10/16 [History] Gabapentin [Neurontin] 100 mg PO TID PRN 10/10/16 [History] Budesonide [Pulmicort] 0.5 mg INHALATION RT-BID PRN 11/26/16 [History] Ergocalciferol (Vitamin D2) [Vitamin D2] 50,000 unit PO QMONTH 11/26/16 [History ] Insulin NPL/Insulin Lispro [humaLOG MIX 75-25 VIAL] 15 unit SQ HS 11/26/16 [ History] Insulin NPL/Insulin Lispro [humaLOG MIX 75-25 VIAL] 20 unit SQ QAM 11/26/16 [ History] Ipratropium Carmel [Atrovent Hfa] 2 puff INHALATION RT-QID PRN 11/26/16 [ History] Tacrolimus [Prograf] 4 mg PO HS 11/26/16 [History] Furosemide [Lasix] 40 mg PO BID #60 tablet 11/29/16 [Rx] hydrALAZINE HCL [Apresoline] 25 mg PO TID #90 tab 11/29/16 [Rx] Aspirin EC [Ecotrin Low Dose] 81 mg PO DAILY 12/25/16 [History] Metoprolol Tartrate [Lopressor] 50 mg PO HS 12/25/16 [History] Metoprolol Tartrate [Lopressor] 100 mg PO QAM 12/25/16 [History] Mycophenolate Mofetil [Cellcept] 500 mg PO BID 12/25/16 [History] amLODIPine BESYLATE [Norvasc] 10 mg PO DAILY 12/25/16 [History] Ceftaroline Fosamil [Teflaro] 300 mg IVPB Q12H #14 bag 01/03/17 [Rx] Bacitracin Oint 1 applic TOPICAL BID #1 tube 01/04/17 [Rx] Multivitamins, Thera [Multivitamin (formulary)] 1 each PO DAILY@1200 #30 tab [Rx] Sodium Bicarbonate Tab 1,300 mg PO TID #90 tab 01/04/17 [Rx] predniSONE 2.5 mg PO DAILY #30 tab 01/04/17 [Rx] traMADol HCl [Ultram] 50 mg PO TID PRN #42 tab 01/04/17 [Rx] Follow up Appointment(s)/Referral(s): Chester Loya MD [STAFF PHYSICIAN] - 2 Weeks Jayla Mahmood MD [Primary Care Provider] - 1 Week García Wong DO [STAFF PHYSICIAN] - 1 Week Ambulatory/Diagnostic Orders: Basic Metabolic Panel [LAB.AMB] Location: Determined By Patient Complete Blood Count w/diff [LAB.AMB] Location: Determined By Patient Patient Instructions/Handouts: Heart Failure (DC), Type 2 Diabetes in Adults ( DC), Acute Wound Care (DC) Activity/Diet/Wound Care/Special Instructions: Diabetic, renal diet. Fluid restrictions. NO smoking, cessation information given. [facility] Procedures for iv Teflaro (Ceftaroline) every 12 hrs (begin on 01/05 at 7: 30 am and then return at 7:30 pm for 2nd dose of the day). Report to 6th floor Pediatric unit on Saturday (01-05-17) Pediatric Unit #[id number] Discharge/Stand Alone Forms: Work/School Release Discharge Disposition: HOME SELF-CARE
[2017-01-04 15:07] VITALS: BP 131/50; RESP 53; TEMP 97.1
[2017-01-04 17:22] LABS: Glucose,Whole Blood 154 mg/dL (75-99)
== END 2017-01-04 19:00 | disposition home or self-care (01) | DRG 871 ==
LOC: EC 15:15 → 4MS4W 18:11
PROVIDERS: ADMIT Internal Medicine; ATTEND Internal Medicine
PROC: 099K0ZX Drainage of Nasal Mucosa and Soft Tissue, Open Approach, Diagnostic (ICD-10-PCS; principal; 2016-12-26)
PROC: 02HV33Z Insertion of Infusion Device into Superior Vena Cava, Percutaneous Approach (ICD-10-PCS; 2017-01-04)
PROC: B548ZZA Ultrasonography of Superior Vena Cava, Guidance (ICD-10-PCS; 2017-01-04)
DX: A41.9 Sepsis, unspecified organism (principal); N17.0 Acute kidney failure with tubular necrosis; I50.23 Acute on chronic systolic (congestive) heart failure; T86.11 Kidney transplant rejection; E87.2 Acidosis; N18.4 Chronic kidney disease, stage 4 (severe); Z94.4 Liver transplant status; I13.0 Hypertensive heart and chronic kidney disease with heart failure and stage 1 through stage 4 chronic kidney disease, or unspecified chronic kidney disease; E87.1 Hypo-osmolality and hyponatremia; J34.0 Abscess, furuncle and carbuncle of nose; E11.22 Type 2 diabetes mellitus with diabetic chronic kidney disease; E87.5 Hyperkalemia; E11.65 Type 2 diabetes mellitus with hyperglycemia; J44.9 Chronic obstructive pulmonary disease, unspecified; K21.9 Gastro-esophageal reflux disease without esophagitis; E78.5 Hyperlipidemia, unspecified; F17.200 Nicotine dependence, unspecified, uncomplicated; G40.909 Epilepsy, unspecified, not intractable, without status epilepticus; R04.0 Epistaxis; B95.62 Methicillin resistant Staphylococcus aureus infection as the cause of diseases classified elsewhere; M19.91 Primary osteoarthritis, unspecified site; R33.9 Retention of urine, unspecified; Z85.72 Personal history of non-Hodgkin lymphomas; Z95.5 Presence of coronary angioplasty implant and graft; Z98.41 Cataract extraction status, right eye; Z98.42 Cataract extraction status, left eye; Z96.1 Presence of intraocular lens; Z79.01 Long term (current) use of anticoagulants; Z79.82 Long term (current) use of aspirin; Z79.899 Other long term (current) drug therapy; Z79.51 Long term (current) use of inhaled steroids; Z79.4 Long term (current) use of insulin; Z83.3 Family history of diabetes mellitus; Z82.49 Family history of ischemic heart disease and other diseases of the circulatory system; Z88.1 Allergy status to other antibiotic agents; Z88.5 Allergy status to narcotic agent; Z91.018 Allergy to other foods
CPT/HCPCS: 36415; 71020; 76776; 80048; 80053; 80197; 80202; 81001; 82009; 82728; 83036; 83540; 83550; 83605; 85025; 85610; 85730; 87040; 87070; 87077; 87186; 87324; 96361; 96374; 96375; 99285

== ENCOUNTER → 2017-01-14 | Outpatient (CLI) | payer BC, MEDICARE ==
[2017-01-14 09:03] LABS: Calcium 8.3 mg/dL (8.4-10.2); Potassium 4.7 mmol/L (3.5-5.1)
== END | disposition home or self-care (01) ==
LOC: LABWHC1 06:59
PROVIDERS: ATTEND Nurse Practitioner Family
DX: Z48.22 Encounter for aftercare following kidney transplant (principal)
CPT/HCPCS: 36415; 80048

== ENCOUNTER → 2017-04-10 | Outpatient (CLI) | payer BC, MEDICARE ==
[2017-04-10 09:05] LABS: Basophils % (A) 1 %; CH 26.7; CHCM 29.9; Eosinophils # (A) 0.2 k/uL (0-0.7); Eosinophils % (A) 5 %; HCT 34.5 % (39.0-53.0); HDW 2.76; HGB 10.4 gm/dL (13.0-17.5); Hypochromasia Marked; Luc # (Auto) 0.14; Luc % (Auto) 4; Lymphocytes # (A) 0.6 k/uL (1.0-4.8); Lymphocytes % (A) 17 %; MCHC 30.1 g/dL (31.0-37.0); MCV 89.6 fL (80.0-100.0); Mean Platelet Volume 7.3; Monocytes # (A) 0.3 k/uL (0-1.0); Monocytes % (A) 8 %; Neutrophils # (A) 2.5 k/uL (1.3-7.7); Neutrophils % (A) 66 %; RBC 3.86 m/uL (4.30-5.90); RDW 15.6 % (11.5-15.5); WBC 3.7 k/uL (3.8-10.6); WBC (Perox) 3.93
[2017-04-10 09:07] LABS: Calcium 8.3 mg/dL (8.4-10.2); Magnesium 1.4 mg/dL (1.6-2.3); Phosphorus 4.6 mg/dL (2.5-4.5); Potassium 4.9 mmol/L (3.5-5.1); Uric Acid 7.7 mg/dL (3.5-8.5)
[2017-04-10 09:25] LABS: Appearance,Urine Clear (Clear); Bilirubin,Urine Negative (Negative); Glucose,Urine (UA) Trace (Negative); Ketones,Urine Negative (Negative); Leukocyte Esterase,Urine Negative (Negative); Nitrite,Urine Negative (Negative); PH, Urine 6.5 (5.0-8.0); Particle Count 722; Protein,Urine 2+ (Negative); RBC,Urine 2 /hpf (0-5); Specific Gravity,Urine 1.008 (1.001-1.035); UA Billing (MACRO vs. MICRO) MICRO; Urobilinogen,Urine <2.0 mg/dL (<2.0); WBC,Urine 2 /hpf (0-5)
[2017-04-10 13:12] LABS: Hemoglobin A1C 8.2 % (4.2-6.1)
[2017-04-10 15:18] LABS: Iron Saturation 12.99 (15.00-50.00)
== END | disposition home or self-care (01) ==
LOC: LABWHC1 08:13
PROVIDERS: ATTEND Nurse Practitioner Family
DX: E11.29 Type 2 diabetes mellitus with other diabetic kidney complication (principal); E83.39 Other disorders of phosphorus metabolism; E83.42 Hypomagnesemia; D50.9 Iron deficiency anemia, unspecified; N25.81 Secondary hyperparathyroidism of renal origin; M10.9 Gout, unspecified; N39.0 Urinary tract infection, site not specified; Z94.0 Kidney transplant status
CPT/HCPCS: 36415; 80048; 80197; 81001; 82306; 82728; 83036; 83540; 83550; 83735; 83970; 84100; 84550; 85025

== ENCOUNTER → 2017-06-04 | Outpatient (CLI) | payer BC, MEDICARE ==
--- NOTE | 2017-06-04 16:40 | XR ---
EXAMINATION TYPE: XR chest 2V DATE OF EXAM: 06/04/2017 COMPARISON: 12/30/2016 HISTORY: Cough TECHNIQUE: Frontal and lateral views of the chest are obtained. FINDINGS: Heart appears enlarged. There is no heart failure. Lungs appear clear of consolidation. Th ere is no pleural effusion. Bony thorax is intact. IMPRESSION: Cardiomegaly. Minimal pulmonary fibrotic changes at the lung bases. No change.
== END | disposition home or self-care (01) ==
LOC: RADXRMAIN 16:17
PROVIDERS: ATTEND Internal Medicine
DX: I51.7 Cardiomegaly (principal); J84.10 Pulmonary fibrosis, unspecified
CPT/HCPCS: 71020

== ENCOUNTER → 2017-07-23 | Outpatient (CLI) | payer BC, MEDICARE ==
--- NOTE | 2017-07-23 13:29 | XR ---
EXAMINATION TYPE: XR lumbosacral spine min 4V DATE OF EXAM: 07/23/2017 CLINICAL HISTORY: Back pain and history of lymphoma. TECHNIQUE: Frontal, lateral, and oblique images of the lumbar spine are obtained. COMPARISON: None FINDINGS: There are 5 lumbar type vertebral bodies identified. The lumbar spine shows satisfactory alignment without evidence of acute fracture or dislocation. Multilevel moderate degenerative change of the visualized lumbosacral spine are displayed is facet arthropathy, intervertebral disc space donell rowing, small anterior osteophytes and endplate sclerosis. No focal sclerotic lesions are seen of the lumbar spine. Evaluation for lytic lesions is limited as there is overlying bowel gas. No significan t neural foraminal narrowing is appreciated radiographically. The overlying soft tissue appears unremarkable. Surgical clips are noted within the right lower quadr ant. Severe atherosclerosis of the abdominal aorta and its branches are incidentally seen. IMPRESSION: 1. No acute fracture or dislocation is seen in the lumbar spine. 2. No focal sclerotic lesions of the lumbar spine. A lytic lesion evaluation is limited due to overly ing bowel gas. If there is concern for lymphomatous involvement of the lumbar spine MR would be recom mended for bone marrow replacing process evaluation. 3. Mild multilevel degenerative disc disease. MR could also be utilized to evaluate for disc herniati on and neural foraminal stenosis.
== END | disposition home or self-care (01) ==
LOC: RADXRMAIN 12:46
PROVIDERS: ATTEND Internal Medicine
DX: M51.36 Other intervertebral disc degeneration, lumbar region (principal)
CPT/HCPCS: 72110

== ENCOUNTER → 2017-09-10 | Outpatient (CLI) | payer BC, MEDICARE ==
[2017-09-10 10:14] LABS: Basophils % (A) 0 %; Eosinophils # (A) 0.1 k/uL (0-0.7); Eosinophils % (A) 4 %; HCT 28.8 % (39.0-53.0); HGB 9.5 gm/dL (13.0-17.5); Lymphocytes # (A) 0.5 k/uL (1.0-4.8); Lymphocytes % (A) 15 %; MCH 27.6 pg (25.0-35.0); MCHC 32.9 g/dL (31.0-37.0); MCV 83.7 fL (80.0-100.0); Mean Platelet Volume 7.8; Monocytes # (A) 0.3 k/uL (0-1.0); Monocytes % (A) 8 %; Neutrophils # (A) 2.3 k/uL (1.3-7.7); Neutrophils % (A) 70 %; Platelet Count 164 k/uL (150-450); RBC 3.45 m/uL (4.30-5.90); RDW 15.3 % (11.5-15.5); WBC 3.3 k/uL (3.8-10.6)
[2017-09-10 10:36] LABS: Albumin 3.9 g/dL (3.5-5.0); Calcium 9.7 mg/dL (8.4-10.2); Phosphorus 4.2 mg/dL (2.5-4.5); Potassium 5.4 mmol/L (3.5-5.1); Total Bilirubin 0.5 mg/dL (0.2-1.3); Total Protein 6.1 g/dL (6.3-8.2)
[2017-09-10 16:45] LABS: Iron Saturation 13.64 (15.00-50.00)
[2017-09-10 17:04] LABS: Alpha Fetoprotein, Tumor Mkr <1.3 ng/mL (0.0-7.9)
[2017-09-10 17:47] LABS: Parathyroid Hormone Intact 177.1 pg/mL (14.0-72.0)
[2017-09-10 22:48] LABS: Hemoglobin A1C 9.7 % (4.0-6.0)
== END | disposition home or self-care (01) ==
LOC: LABWHC1 09:27
PROVIDERS: ATTEND Nurse Practitioner Family
DX: E78.2 Mixed hyperlipidemia (principal); J44.9 Chronic obstructive pulmonary disease, unspecified; E55.9 Vitamin D deficiency, unspecified; N18.3 Chronic kidney disease, stage 3 (moderate); D50.9 Iron deficiency anemia, unspecified; E07.9 Disorder of thyroid, unspecified; C85.93 Non-Hodgkin lymphoma, unspecified, intra-abdominal lymph nodes; D47.Z1 Post-transplant lymphoproliferative disorder (PTLD); N25.81 Secondary hyperparathyroidism of renal origin; E79.0 Hyperuricemia without signs of inflammatory arthritis and tophaceous disease; E11.29 Type 2 diabetes mellitus with other diabetic kidney complication; E11.22 Type 2 diabetes mellitus with diabetic chronic kidney disease; N39.0 Urinary tract infection, site not specified; I12.9 Hypertensive chronic kidney disease with stage 1 through stage 4 chronic kidney disease, or unspecified chronic kidney disease; T86.90 Unspecified complication of unspecified transplanted organ and tissue; Z94.0 Kidney transplant status
CPT/HCPCS: 36415; 80053; 80061; 80197; 82105; 82306; 82728; 83036; 83540; 83550; 83735; 83970; 84100; 84443; 84481; 84550; 85025

== ENCOUNTER → 2017-09-17 | Outpatient (CLI) | payer BC, MEDICARE ==
[2017-09-17 09:28] LABS: Appearance,Urine Clear (Clear); Bilirubin,Urine Negative (Negative); Blood,Urine Negative (Negative); Color,Urine Light Yellow; Glucose,Urine (UA) 3+ (Negative); Ketones,Urine Negative (Negative); Leukocyte Esterase,Urine Negative (Negative); Nitrite,Urine Negative (Negative); Protein,Urine 2+ (Negative); RBC,Urine 2 /hpf (0-5); Specific Gravity,Urine 1.008 (1.001-1.035); Urobilinogen,Urine <2.0 mg/dL (<2.0); WBC,Urine 1 /hpf (0-5)
== END | disposition home or self-care (01) ==
LOC: LABWHC1 07:30
PROVIDERS: ATTEND Nurse Practitioner Family
DX: N25.81 Secondary hyperparathyroidism of renal origin (principal); E83.39 Other disorders of phosphorus metabolism; E83.42 Hypomagnesemia; E79.0 Hyperuricemia without signs of inflammatory arthritis and tophaceous disease; D50.9 Iron deficiency anemia, unspecified; E11.29 Type 2 diabetes mellitus with other diabetic kidney complication; N18.3 Chronic kidney disease, stage 3 (moderate); N39.0 Urinary tract infection, site not specified; Z94.2 Lung transplant status
CPT/HCPCS: 36415; 80197; 81001

== ENCOUNTER → 2017-09-30 | Outpatient (CLI) | payer BC, MEDICARE | END | disposition home or self-care (01) | LOC: LABWHC1 08:31 | PROVIDERS: ATTEND Nurse Practitioner Family | DX: K74.0 Hepatic fibrosis (principal); Z94.4 Liver transplant status; Z94.0 Kidney transplant status | CPT/HCPCS: 36415; 82105 ==

== ENCOUNTER → 2017-10-04 | Outpatient (CLI) | payer BC, MEDICARE ==
--- NOTE | 2017-10-04 09:21 | US ---
EXAMINATION TYPE: US abdomen complete DATE OF EXAM: 10/04/2017 COMPARISON: 12/28/2016 CLINICAL HISTORY: T86.49 Other Complications Of Liver Transplant 2006 Renal Transplant 2015 EXAM MEASUREMENTS: Liver Length: 13.4 cm Gallbladder Wall: 0.2 cm CBD: 0.3 cm Spleen: 15.0 cm Right Kidney: 6.7 x 2.2 x 2.7 cm Left Kidney: 7.1 x 3.5 x 4.1 cm Pancreas: splenic vein measures large, situated anterior to to pancreas is a curved echogenic linear structure with blood flow within, shadowing echogenic foci seen within or adjacent To splenic vein Liver: free fluid surrounding liver, liver cyst noted measuring 1.9 x 1.5 x. 1.9cm Gallbladder: irregular contour, no stones or sludge visualized Evidence for sonographic Gold's sign: CBD: wnl Spleen: enlarged Right Kidney: atrophied, multiple echogenic foci Left Kidney: atrophied, multiple echogenic foci Upper IVC: prominent Abd Aorta: wnl Moderate fluid seen in all 4 quadrants. The liver is homogenous. The intrahepatic portion of the IVC and proximal abdominal aorta are within normal limits. There is no evidence of cholelithiasis. Common bile duct is unremarkable. The visu alized portions of the pancreas are homogenous. The spleen is unremarkable. Kidneys are symmetric a nd free of hydronephrosis. No renal lesions are seen. IMPRESSION: 1. Moderate ascites. 2. Hepatic cyst. 3. 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 Correlate clini navjot. 4 gallbladder sludge 5. Splenomegaly.
== END | disposition home or self-care (01) ==
LOC: RADUSWWP 06:59
PROVIDERS: ATTEND Internal Medicine
DX: K76.89 Other specified diseases of liver (principal); R18.8 Other ascites; R16.1 Splenomegaly, not elsewhere classified; K82.8 Other specified diseases of gallbladder
CPT/HCPCS: 76700

== ENCOUNTER → 2017-12-11 | Outpatient (CLI) | payer BC, MEDICARE ==
[2017-12-11 09:59] LABS: Basophils % (A) 1 %; Eosinophils # (A) 0.1 k/uL (0-0.7); Eosinophils % (A) 4 %; HCT 31.7 % (39.0-53.0); HGB 9.8 gm/dL (13.0-17.5); Hypochromasia Slight; Lymphocytes # (A) 0.5 k/uL (1.0-4.8); Lymphocytes % (A) 14 %; MCH 26.4 pg (25.0-35.0); MCHC 30.9 g/dL (31.0-37.0); MCV 85.4 fL (80.0-100.0); Mean Platelet Volume 7.5; Monocytes # (A) 0.3 k/uL (0-1.0); Monocytes % (A) 9 %; Neutrophils # (A) 2.5 k/uL (1.3-7.7); Neutrophils % (A) 70 %; Platelet Count 187 k/uL (150-450); RBC 3.71 m/uL (4.30-5.90); RDW 14.9 % (11.5-15.5); WBC 3.6 k/uL (3.8-10.6)
[2017-12-11 10:08] LABS: Appearance,Urine Clear (Clear); Bilirubin,Urine Negative (Negative); Blood,Urine Negative (Negative); Color,Urine Light Yellow; Glucose,Urine (UA) Negative (Negative); Ketones,Urine Negative (Negative); Leukocyte Esterase,Urine Negative (Negative); Mucus,Urine Rare /hpf; Nitrite,Urine Negative (Negative); Protein,Urine 2+ (Negative); RBC,Urine <1 /hpf (0-5); Specific Gravity,Urine 1.008 (1.001-1.035); Urobilinogen,Urine <2.0 mg/dL (<2.0); WBC,Urine <1 /hpf (0-5)
[2017-12-11 10:23] LABS: Albumin 3.9 g/dL (3.5-5.0); Calcium 9.1 mg/dL (8.4-10.2); Phosphorus 4.3 mg/dL (2.5-4.5); Potassium 4.9 mmol/L (3.5-5.1); Uric Acid 6.9 mg/dL (3.5-8.5)
[2017-12-11 16:07] LABS: Vitamin D 25 Hydroxy 30.4 ng/mL (30.0-100.0)
[2017-12-11 16:36] LABS: Iron Saturation 9.49 (15.00-50.00); Parathyroid Hormone Intact 388.1 pg/mL (14.0-72.0)
[2017-12-11 17:31] LABS: Hemoglobin A1C 10.4 % (4.0-6.0)
== END | disposition home or self-care (01) ==
LOC: LABWHC1 08:54
PROVIDERS: ATTEND Nurse Practitioner Family
DX: N25.81 Secondary hyperparathyroidism of renal origin (principal); N18.3 Chronic kidney disease, stage 3 (moderate); N39.0 Urinary tract infection, site not specified; E11.29 Type 2 diabetes mellitus with other diabetic kidney complication; D50.9 Iron deficiency anemia, unspecified; E83.39 Other disorders of phosphorus metabolism; E79.0 Hyperuricemia without signs of inflammatory arthritis and tophaceous disease; Z94.0 Kidney transplant status
CPT/HCPCS: 36415; 80048; 81001; 82040; 82306; 82728; 83036; 83540; 83550; 83735; 83970; 84100; 84550; 85025

== ENCOUNTER → 2017-12-17 | Outpatient (CLI) | payer BC, MEDICARE ==
[2017-12-17 11:25] LABS: Basophils % (A) 1 %; Eosinophils # (A) 0.1 k/uL (0-0.7); Eosinophils % (A) 5 %; HCT 29.8 % (39.0-53.0); HGB 9.6 gm/dL (13.0-17.5); Hypochromasia Slight; Lymphocytes # (A) 0.4 k/uL (1.0-4.8); Lymphocytes % (A) 18 %; MCH 27.5 pg (25.0-35.0); MCHC 32.3 g/dL (31.0-37.0); MCV 85.1 fL (80.0-100.0); Mean Platelet Volume 7.9; Monocytes # (A) 0.2 k/uL (0-1.0); Monocytes % (A) 9 %; Neutrophils # (A) 1.5 k/uL (1.3-7.7); Neutrophils % (A) 63 %; Platelet Count 153 k/uL (150-450); WBC 2.4 k/uL (3.8-10.6)
[2017-12-17 14:10] LABS: Albumin 3.5 g/dL (3.5-5.0); Calcium 9.1 mg/dL (8.4-10.2); Potassium 5.9 mmol/L (3.5-5.1); Total Bilirubin 0.5 mg/dL (0.2-1.3); Total Protein 5.3 g/dL (6.3-8.2)
[2017-12-17 14:37] LABS: Prostate Specific Antigen 0.29 ng/mL (0.00-4.00)
[2017-12-17 17:58] LABS: Hemoglobin A1C 10.2 % (4.0-6.0)
== END | disposition home or self-care (01) ==
LOC: LABWHC1 10:41
PROVIDERS: ATTEND Internal Medicine
DX: E11.65 Type 2 diabetes mellitus with hyperglycemia (principal); E78.2 Mixed hyperlipidemia; I10 Essential (primary) hypertension; K21.9 Gastro-esophageal reflux disease without esophagitis; Z12.5 Encounter for screening for malignant neoplasm of prostate; Z79.4 Long term (current) use of insulin
CPT/HCPCS: 36415; 80053; 80061; 83036; 84153; 84443; 85025

== ENCOUNTER → 2018-04-04 | Outpatient (CLI) | payer BC, MEDICARE ==
[2018-04-04 09:01] LABS: Calcium 8.9 mg/dL (8.4-10.2); Potassium 5.1 mmol/L (3.5-5.1)
== END | disposition home or self-care (01) ==
LOC: LABWHC1 07:32
PROVIDERS: ATTEND Internal Medicine Nephrology
DX: N18.4 Chronic kidney disease, stage 4 (severe) (principal)
CPT/HCPCS: 36415; 80048

== ENCOUNTER 2018-08-05 19:33 | Inpatient (IN) | payer BC, MEDICARE ==
--- NOTE | 2018-08-05 19:49 | ED ---
General Adult HPI - General Stated complaint: CHEST PAIN Time Seen by Provider: 08/05/18 19:36 Source: patient, EMS Mode of arrival: EMS Limitations: altered mental status - Related Data Home Medications Medication Instructions Recorded Confirmed Atorvastatin [Lipitor] 20 mg PO DAILY 08/18/14 08/05/18 Tacrolimus [Prograf] 3 mg PO QAM 08/18/14 08/05/18 Allopurinol [Zyloprim] 100 mg PO DAILY 10/10/16 08/05/18 Tacrolimus [Prograf] 4 mg PO HS 11/26/16 08/05/18 Metoprolol Tartrate [Lopressor] 50 mg PO BID 12/25/16 08/05/18 Calcium Acetate [Phoslo] 667 mg PO DAILY 08/05/18 08/05/18 Cholecalciferol (Vitamin D3) 2,000 unit PO DAILY 08/05/18 08/05/18 [Vitamin D3] Furosemide [Lasix] 80 mg PO TID 08/05/18 08/05/18 HYDROcodone/APAP 10-325MG [[place] 1 tab PO TID 08/05/18 08/05/18 10-325] Insulin Aspart Protam & Aspart 15 unit SQ BID 08/05/18 08/05/18 [NovoLOG MIX 70-30 Flexpen] Magnesium Oxide [Mag-Ox] 400 mg PO BID 08/05/18 08/05/18 Multivitamins, Thera [Multivitamin 1 tab PO DAILY 08/05/18 08/05/18 (formulary)] Mycophenolate Mofetil [Cellcept] 500 mg PO BID 08/05/18 08/05/18 predniSONE 2.5 mg PO BID 08/05/18 08/05/18 Previous Rx's Medication Instructions Recorded Apixaban [Eliquis] 2.5 mg PO BID #60 tablet 06/16/15 hydrALAZINE HCL [Apresoline] 25 mg PO TID #90 tab 11/29/16 Allergies Allergy/AdvReac Type Severity Reaction Status Date / Time heaton Allergy Unknown Verified 08/05/18 19:37 codeine Allergy Rash/Hives Verified 08/05/18 19:37 erythromycin base Allergy Swelling Verified 08/05/18 19:37 Review of Systems ROS Statement: Those systems with pertinent positive or pertinent negative responses have been documented in the HPI. ROS Other: All systems not noted in ROS Statement are negative. Past Medical History Past Medical History: Asthma, Cancer, Heart Failure, COPD, Diabetes Mellitus, GERD/Reflux, Hyperlipidemia, Hypertension, Osteoarthritis (OA), Pneumonia, Renal Disease, Seizure Disorder Additional Past Medical History / Comment(s): 06/13/15 Pt presented to [facility] ER with SOB. He is admitted with clinical impression of CHF exacerbation, dyspnea and hyperglycemia, renal failure. 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 dialysis m/w/f History of Any Multi-Drug Resistant Organisms: MRSA Date of last positivie culture/infection: 12/26/16 MDRO Source:: NASAL Past Surgical History: Heart Catheterization, Heart Catheterization With Stent Additional Past Surgical History / Comment(s): liver transplant 2005 d/t non alcoholic steatohepatits d/t fatty liver, colonoscopy, insertion lt arm fistula( in past had hemodialysis)-kidney implant 2011, lt shoulder sx has pin in place, rt wrist sx with pins, cataract removal and lens implants bilaterally 2013. Past Anesthesia/Blood Transfusion Reactions: No Reported Reaction Date of Last Stent Placement:: 2007 Past Psychological History: No Psychological Hx Reported Smoking Status: Former smoker Past Alcohol Use History: Unable to Obtain Past Drug Use History: Unable to Obtain - Past Family History Father Family Medical History: No Reported History, Cancer, Hypertension Additional Family Medical History / Comment(s): Father in his 80's. Mother Family Medical History: Diabetes Mellitus, Hypertension Additional Family Medical History / Comment(s): Mother in her 80's. General Exam Limitations: altered mental status Course Vital Signs 08/05/18 08/05/18 19:37 20:00 Temperature 98.9 F Pulse Rate 130 H 106 H Respiratory 28 H 20 Rate Blood Pressure 125/68 137/81 O2 Sat by Pulse 100 100 Oximetry Medical Decision Making - Medical Decision Making Dictation was produced using [employer] dictation software. please excuse any grammatical, word or spelling errors. Chief Complaint: 72-year-old male presents with total body pain. History of Present Illness: Patient is a 72-year-old male. Patient is a poor historian. He has past medical history of end-stage renal disease. He gets dialysis Saturday. Patient states that everything hurts. He states his main complaint is bilateral leg pain and rectal pain. She states she hasn't had a bowel movement 2 days. Patient reports history of leg swelling. He does get his legs wrapped every once in a while. Patient also reports that his rectum hurts. The ROS documented in this emergency department record has been reviewed and confirmed by me. Those systems with pertinent positive or negative responses have been documented in the HPI. All other systems are other negative and/or noncontributory. PHYSICAL EXAM: General Impression: Alert and oriented x3, acute distress secondary to pain HEENT: Normocephalic atraumatic, extra-ocular movements intact, pupils equal and reactive to light bilaterally, mucous membranes moist. Cardiovascular: Heart regular rate and rhythm, S1&S2 audible, no murmurs, rubs or gallops Chest: Lungs clear to auscultation bilaterally, no rhonchi, no wheeze, no rales Abdomen: Bowel sounds present, abdomen soft, non-tender, non-distended, no organomegaly Musculoskeletal: Pulses present and equal in all extremities, 4+ pitting edema to bilateral lower extremities Motor: Power 5/5 bilaterally, no focal deficits noted Neurological: CN II-XII grossly intact, no focal motor or sensory deficits noted Skin: Intact with no visualized rashes Psych: Normal affect and mood Rectal exam: Impacted stool palpated with digital rectal exam, no bleeding ED course: 72-year-old male with multiple complaints of pain. Reports that he has rectal pain and bilateral lower extremity pain. Return evaluation obtained. Leukocytosis of 10.7. Rest of CBC is unremarkable. White count is unremarkable. Metabolic panel shows findings within acceptable limits. Prematurity peptide is 119,000. Chest x-ray shows right lower lobe infiltrate. Abdominal x-rays is unremarkable. Patient given antibiotics for concerning findings of pneumonia. Manual disimpaction was performed removing small amounts of hard stools. Patient's symptoms are improved. His blood pressure is normotensive. Patient not showing signs of severe respiratory distress requiring obtained BiPAP or aggressive blood pressure medications. Local presentation is concerning for CHF exacerbation versus fluid overload versus pneumonia. EKG interpretation: Ventricular rate 110, QRS 114, QTc 452. No [place] prolongation, no QTC prolongation, no ST or T-wave changes noted. EKG compared to 11/27/2016 showing no changes. Overall, this EKG is unremarkable - Lab Data Result diagrams: 08/05/18 20:01 08/05/18 20:01 Lab Results 08/05/18 08/05/18 08/05/18 Range/Units 20:01 20:01 20:01 WBC 10.7 H (3.8-10.6) k/uL RBC 3.59 L (4.30-5.90) m/uL Hgb 9.1 L (13.0-17.5) gm/dL Hct 31.9 L (39.0-53.0) % MCV 89.0 (80.0-100.0) fL MCH 25.5 (25.0-35.0) pg MCHC 28.6 L (31.0-37.0) g/dL RDW 19.5 H (11.5-15.5) % Plt Count 474 H (150-450) k/uL Neutrophils % 94 % Lymphocytes % 3 % Monocytes % 2 % Eosinophils % 0 % Basophils % 0 % Neutrophils # 10.1 H (1.3-7.7) k/uL Lymphocytes # 0.3 L (1.0-4.8) k/uL Monocytes # 0.2 (0-1.0) k/uL Eosinophils # 0.0 (0-0.7) k/uL Basophils # 0.0 (0-0.2) k/uL Hypochromasia Marked Anisocytosis Slight PT (9.0-12.0) sec INR (<1.2) APTT (22.0-30.0) sec Sodium 137 (137-145) mmol/L Potassium 4.0 (3.5-5.1) mmol/L Chloride 97 L (98-107) mmol/L Carbon Dioxide 27 (22-30) mmol/L Anion Gap 13 mmol/L BUN 36 H (9-20) mg/dL Creatinine 2.33 H (0.66-1.25) mg/dL Est GFR (CKD-EPI)AfAm 32 (>60 ml/min/1.73 sqM) Est GFR (CKD-EPI)NonAf 27 (>60 ml/min/1.73 sqM) Glucose 221 H (74-99) mg/dL Calcium 8.1 L (8.4-10.2) mg/dL Magnesium 2.2 (1.6-2.3) mg/dL Total Bilirubin 0.8 (0.2-1.3) mg/dL AST 15 L (17-59) U/L ALT 21 (21-72) U/L Alkaline Phosphatase 140 H (38-126) U/L Total Creatine Kinase <20 L (55-170) U/L CK-MB (CK-2) 0.6 (0.0-2.4) ng/mL CK-MB (CK-2) Rel Index Troponin I 0.043 H* (0.000-0.034) ng/mL NT-Pro-B Natriuret Pep pg/mL Total Protein 4.6 L (6.3-8.2) g/dL Albumin 2.5 L (3.5-5.0) g/dL 08/05/18 08/05/18 Range/Units 20:01 20:01 WBC (3.8-10.6) k/uL RBC (4.30-5.90) m/uL Hgb (13.0-17.5) gm/dL Hct (39.0-53.0) % MCV (80.0-100.0) fL MCH (25.0-35.0) pg MCHC (31.0-37.0) g/dL RDW (11.5-15.5) % Plt Count (150-450) k/uL Neutrophils % % Lymphocytes % % Monocytes % % Eosinophils % % Basophils % % Neutrophils # (1.3-7.7) k/uL Lymphocytes # (1.0-4.8) k/uL Monocytes # (0-1.0) k/uL Eosinophils # (0-0.7) k/uL Basophils # (0-0.2) k/uL Hypochromasia Anisocytosis PT 12.6 H (9.0-12.0) sec INR 1.2 H (<1.2) APTT 28.1 (22.0-30.0) sec Sodium (137-145) mmol/L Potassium (3.5-5.1) mmol/L Chloride (98-107) mmol/L Carbon Dioxide (22-30) mmol/L Anion Gap mmol/L BUN (9-20) mg/dL Creatinine (0.66-1.25) mg/dL Est GFR (CKD-EPI)AfAm (>60 ml/min/1.73 sqM) Est GFR (CKD-EPI)NonAf (>60 ml/min/1.73 sqM) Glucose (74-99) mg/dL Calcium (8.4-10.2) mg/dL Magnesium (1.6-2.3) mg/dL Total Bilirubin (0.2-1.3) mg/dL AST (17-59) U/L ALT (21-72) U/L Alkaline Phosphatase (38-126) U/L Total Creatine Kinase (55-170) U/L CK-MB (CK-2) (0.0-2.4) ng/mL CK-MB (CK-2) Rel Index Troponin I (0.000-0.034) ng/mL NT-Pro-B Natriuret Pep [id number] pg/mL Total Protein (6.3-8.2) g/dL Albumin (3.5-5.0) g/dL Disposition Clinical Impression: Fluid overload Disposition: ADMITTED IP TO THIS HOSP Condition: Fair Referrals: Jayla Mahmood MD [Primary Care Provider] - 1-2 days Decision Time: 21:39
[2018-08-05 20:17] LABS: Anisocytosis Slight; Basophils % (A) 0 %; Eosinophils % (A) 0 %; HCT 31.9 % (39.0-53.0); HGB 9.1 gm/dL (13.0-17.5); Hypochromasia Marked; Lymphocytes # (A) 0.3 k/uL (1.0-4.8); Lymphocytes % (A) 3 %; MCH 25.5 pg (25.0-35.0); MCHC 28.6 g/dL (31.0-37.0); Mean Platelet Volume 7.1; Monocytes # (A) 0.2 k/uL (0-1.0); Monocytes % (A) 2 %; Neutrophils # (A) 10.1 k/uL (1.3-7.7); Neutrophils % (A) 94 %; Platelet Count 474 k/uL (150-450); RBC 3.59 m/uL (4.30-5.90); RDW 19.5 % (11.5-15.5); WBC 10.7 k/uL (3.8-10.6)
[2018-08-05 20:26] LABS: Albumin 2.5 g/dL (3.5-5.0); Calcium 8.1 mg/dL (8.4-10.2); Magnesium 2.2 mg/dL (1.6-2.3); Total Bilirubin 0.8 mg/dL (0.2-1.3); Total Protein 4.6 g/dL (6.3-8.2)
[2018-08-05 20:29] LABS: Creatine Kinase <20 U/L (55-170)
[2018-08-05 20:37] LABS: INR 1.2 (<1.2); Partial Thromboplastin Time 28.1 sec (22.0-30.0); Prothrombin Time 12.6 sec (9.0-12.0)
[2018-08-05 20:42] LABS: Creatine Kinase MB 0.6 ng/mL (0.0-2.4)
--- NOTE | 2018-08-05 21:04 | XR ---
EXAMINATION TYPE: XR chest 1V portable DATE OF EXAM: 08/05/2018 COMPARISON: NONE HISTORY: Chest pain TECHNIQUE: Single frontal view of the chest is obtained. FINDINGS: Heart is enlarged. There is mild infiltrate at the right lung base. There is no heart fail ure. There is right central venous catheter with the tip in the superior vena cava. There is no pneum othorax. IMPRESSION: There is new mild infiltrate at the right lung base compared to last exam. No heart fail ure. There is new small right pleural effusion.
--- NOTE | 2018-08-05 21:06 | XR ---
EXAMINATION TYPE: XR abdomen 1V DATE OF EXAM: 08/05/2018 COMPARISON: NONE HISTORY: Pain TECHNIQUE: 2 views supine FINDINGS: There is extensive amorphous calcifications over the upper abdomen consistent with vascular calcification. There is no sign of intestinal obstruction or pneumoperitoneum. There is fecal materi al down to the rectum. There is no evidence of a mass. IMPRESSION: Nonacute abdomen. Extensive vascular calcification.
[2018-08-05 21:12] LABS: Troponin I 0.043 ng/mL (0.000-0.034)
[2018-08-05] MEDS ORDERED: AMPICILLIN-SULBACTAM 3 GM in SODIUM CHLORIDE 0.9% 100 ML IVPB STA (21:19)
[2018-08-05] MEDS ORDERED: LEVOFLOXACIN 750MG-D5W PMX 750 MG in DEXTROSE/WATER 1 150ML.BAG IVPB STA (21:26)
[2018-08-05] MEDS ORDERED: NALOXONE 0.4 MG/ML 1 ML VIAL IV PRN (21:34)
[2018-08-05] MEDS: SODIUM CHLORIDE 0.9% 500 ML 500 ML IV ONE (22:51)
[2018-08-05] MEDS ORDERED: SODIUM CHLORIDE 0.9% 250 ML IV SCH (23:30)
[2018-08-06] MEDS: SODIUM CHLORIDE 0.9% 500 ML 500 ML IV ONE (00:05)
[2018-08-06] MEDS ORDERED: VANCOMYCIN 1,000 MG in SODIUM CHLORIDE 0.9% 250 ML IVPB STA (01:23)
--- NOTE | 2018-08-06 01:28 | ED ---
Medical Decision Making - Lab Data Result diagrams: 08/05/18 20:01 08/05/18 20:01 Lab Results 08/05/18 08/05/18 08/05/18 Range/Units 20:01 20:01 20:01 WBC 10.7 H (3.8-10.6) k/uL RBC 3.59 L (4.30-5.90) m/uL Hgb 9.1 L (13.0-17.5) gm/dL Hct 31.9 L (39.0-53.0) % MCV 89.0 (80.0-100.0) fL MCH 25.5 (25.0-35.0) pg MCHC 28.6 L (31.0-37.0) g/dL RDW 19.5 H (11.5-15.5) % Plt Count 474 H (150-450) k/uL Neutrophils % 94 % Lymphocytes % 3 % Monocytes % 2 % Eosinophils % 0 % Basophils % 0 % Neutrophils # 10.1 H (1.3-7.7) k/uL Lymphocytes # 0.3 L (1.0-4.8) k/uL Monocytes # 0.2 (0-1.0) k/uL Eosinophils # 0.0 (0-0.7) k/uL Basophils # 0.0 (0-0.2) k/uL Hypochromasia Marked Anisocytosis Slight PT (9.0-12.0) sec INR (<1.2) APTT (22.0-30.0) sec Sodium 137 (137-145) mmol/L Potassium 4.0 (3.5-5.1) mmol/L Chloride 97 L (98-107) mmol/L Carbon Dioxide 27 (22-30) mmol/L Anion Gap 13 mmol/L BUN 36 H (9-20) mg/dL Creatinine 2.33 H (0.66-1.25) mg/dL Est GFR (CKD-EPI)AfAm 32 (>60 ml/min/1.73 sqM) Est GFR (CKD-EPI)NonAf 27 (>60 ml/min/1.73 sqM) Glucose 221 H (74-99) mg/dL Calcium 8.1 L (8.4-10.2) mg/dL Magnesium 2.2 (1.6-2.3) mg/dL Total Bilirubin 0.8 (0.2-1.3) mg/dL AST 15 L (17-59) U/L ALT 21 (21-72) U/L Alkaline Phosphatase 140 H (38-126) U/L Total Creatine Kinase <20 L (55-170) U/L CK-MB (CK-2) 0.6 (0.0-2.4) ng/mL CK-MB (CK-2) Rel Index Troponin I 0.043 H* (0.000-0.034) ng/mL NT-Pro-B Natriuret Pep pg/mL Total Protein 4.6 L (6.3-8.2) g/dL Albumin 2.5 L (3.5-5.0) g/dL 08/05/18 08/05/18 Range/Units 20:01 20:01 WBC (3.8-10.6) k/uL RBC (4.30-5.90) m/uL Hgb (13.0-17.5) gm/dL Hct (39.0-53.0) % MCV (80.0-100.0) fL MCH (25.0-35.0) pg MCHC (31.0-37.0) g/dL RDW (11.5-15.5) % Plt Count (150-450) k/uL Neutrophils % % Lymphocytes % % Monocytes % % Eosinophils % % Basophils % % Neutrophils # (1.3-7.7) k/uL Lymphocytes # (1.0-4.8) k/uL Monocytes # (0-1.0) k/uL Eosinophils # (0-0.7) k/uL Basophils # (0-0.2) k/uL Hypochromasia Anisocytosis PT 12.6 H (9.0-12.0) sec INR 1.2 H (<1.2) APTT 28.1 (22.0-30.0) sec Sodium (137-145) mmol/L Potassium (3.5-5.1) mmol/L Chloride (98-107) mmol/L Carbon Dioxide (22-30) mmol/L Anion Gap mmol/L BUN (9-20) mg/dL Creatinine (0.66-1.25) mg/dL Est GFR (CKD-EPI)AfAm (>60 ml/min/1.73 sqM) Est GFR (CKD-EPI)NonAf (>60 ml/min/1.73 sqM) Glucose (74-99) mg/dL Calcium (8.4-10.2) mg/dL Magnesium (1.6-2.3) mg/dL Total Bilirubin (0.2-1.3) mg/dL AST (17-59) U/L ALT (21-72) U/L Alkaline Phosphatase (38-126) U/L Total Creatine Kinase (55-170) U/L CK-MB (CK-2) (0.0-2.4) ng/mL CK-MB (CK-2) Rel Index Troponin I (0.000-0.034) ng/mL NT-Pro-B Natriuret Pep [id number] pg/mL Total Protein (6.3-8.2) g/dL Albumin (3.5-5.0) g/dL Disposition Clinical Impression: Fluid overload Disposition: ADMITTED IP TO THIS [facility] Condition: Fair Procedures - Central Line Placement Left IJ Consent Obtained: verbal consent, written consent Patient Placed on Monitor/Pulse Ox: Yes MD Prep: mask, gown, gloves Central Line Prep: Povidone-Iodine 1% Local Anesthesia Used: Lidocaine 2%, with Epi Ultrasound Used for Placement: Yes Central Line Lumen Inserted: triple Bloods Obtained for Lab: No Central Line Position: good blood return, all ports aspirated, flushed, capped, sutured in place with 3-0 nylon Dressing Applied: Tegaderm Post Procedure X-Ray: tip of catheter in good position Patient Tolerated Procedure: well Complications: none
[2018-08-06] MEDS ORDERED: NOREPINEPHRINE 16 MG in SODIUM CHLORIDE 0.9% 250 ML IV SCH (01:30)
[2018-08-06] MEDS ORDERED: VANCOMYCIN IV PER PHARMACY 1 EACH MISC MISCELLANE PRN (01:45)
--- NOTE | 2018-08-06 01:51 | XR ---
EXAMINATION TYPE: XR chest 1V portable DATE OF EXAM: 08/06/2018 COMPARISON: Yesterday HISTORY: Central line placement TECHNIQUE: Single frontal view of the chest is obtained. FINDINGS: There is left jugular catheter with the tip in the right atrium. There is right-sided cent ral venous catheter with the tip in the superior vena cava. No pneumothorax. There is coarse intersti tial infiltrates in the lower lobes. There is mild pulmonary interstitial edema. IMPRESSION: There is pulmonary interstitial edema increased slightly compared to yesterday. No pneum othorax.
[2018-08-06] MEDS ORDERED: VANCOMYCIN 1,750 MG in SODIUM CHLORIDE 0.9% 500 ML 500 ML IVPB ONE (02:00)
--- NOTE | 2018-08-06 02:35 | XR ---
EXAMINATION TYPE: XR chest 1V portable DATE OF EXAM: 08/06/2018 COMPARISON: Today HISTORY: Check line placement TECHNIQUE: Single frontal view of the chest is obtained. FINDINGS: There is a right central venous catheter with the tip in the superior vena cava. There is left jugular catheter with tip in the lower superior vena cava. There is no pneumothorax. There is pu lmonary interstitial edema in the lower lobes. There are chest leads. IMPRESSION: Mild pulmonary edema unchanged. No pneumothorax.
[2018-08-06 02:58] LABS: Glucose,Whole Blood 145 mg/dL (75-99)
[2018-08-06 04:46] LABS: Anisocytosis Slight; Basophils % (A) 0 %; Eosinophils % (A) 0 %; HCT 24.7 % (39.0-53.0); Hypochromasia Marked; Lymphocytes # (A) 0.6 k/uL (1.0-4.8); Lymphocytes % (A) 6 %; MCH 25.7 pg (25.0-35.0); MCHC 28.8 g/dL (31.0-37.0); Mean Platelet Volume 6.6; Monocytes # (A) 0.4 k/uL (0-1.0); Monocytes % (A) 4 %; Neutrophils # (A) 8.8 k/uL (1.3-7.7); Neutrophils % (A) 89 %; Platelet Count 362 k/uL (150-450); Poikilocytosis Slight; RBC 2.77 m/uL (4.30-5.90); RDW 19.4 % (11.5-15.5); WBC 9.9 k/uL (3.8-10.6)
[2018-08-06 04:54] LABS: HGB 7.1 gm/dL (13.0-17.5)
[2018-08-06 04:56] LABS: Calcium 7.7 mg/dL (8.4-10.2); Magnesium 2.1 mg/dL (1.6-2.3); Phosphorus 2.2 mg/dL (2.5-4.5); Potassium 3.7 mmol/L (3.5-5.1)
--- NOTE | 2018-08-06 05:44 | P.CRDCN ---
History of Present Illness Consult date: 08/06/18 Chief complaint: Constipation History of present illness: This is a pleasant 72-year-old gentleman who sees Dr. EDDIE Nava in the office on regular basis with a past medical history significant for coronary artery disease and the patient underwent stent placement about 8 years ago, the details on that are unavailable at this point, known cardiomyopathy based on an echocardiogram was performed in 2017 showing an ejection fraction of 35%, end stage renal disease on hemodialysis, chronic persistent atrial fibrillation maintaining on oral anticoagulation with Eliquis, as well as multiple comorbid conditions, presented to the hospital he goes of constipation. The patient was constipated for about a week. In the emergency room he did undergo disimpaction. His symptoms has improved. He was experiencing abdominal discomfort with the constipation. No nausea or vomiting. No fever or chills. No symptoms of chest pain or chest discomfort, difficulty breathing , feeling of heart racing or fluttering, dizziness or lightheadedness, or syncope. The abdominal x-ray did not show any acute abdomen. The chest x-ray showed mild pulmonary vascular congestions. The EKG showed atrial fibrillation with left anterior fascicular block. No ischemic ST or T-wave abnormalities noted. The troponin came in to be slightly elevated and below 1. The BNP is 11,000. The hemoglobin came down to 7.1. The rest of the blood work came in to be unremarkable aside creatinine which was elevated but the patient is known to be on dialysis. We get involved in the care of the patient for abnormal cardiac enzymes. The patient did not experience any symptoms of chest pain or chest discomfort. The troponin is a slightly elevated which is likely related to the chronic kidney disease. Beside that the EKG did not show any significant or ischemic ST or T- wave abnormalities concerning for ischemia. Past Medical History Past Medical History: Asthma, Cancer, Heart Failure, COPD, Diabetes Mellitus, GERD/Reflux, Hyperlipidemia, Hypertension, Osteoarthritis (OA), Pneumonia, Renal Disease, Seizure Disorder Additional Past Medical History / Comment(s): 06/13/15 Pt presented to [facility] ER with SOB. He is admitted with clinical impression of CHF exacerbation, dyspnea and hyperglycemia, renal failure. 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 dialysis m/w/f History of Any Multi-Drug Resistant Organisms: MRSA Date of last positivie culture/infection: 12/26/16 MDRO Source:: NASAL Past Surgical History: Heart Catheterization, Heart Catheterization With Stent Additional Past Surgical History / Comment(s): liver transplant 2006 d/t non alcoholic steatohepatits d/t fatty liver, colonoscopy, insertion lt arm fistula( in past had hemodialysis)-kidney implant 2011, lt shoulder sx has pin in place, rt wrist sx with pins, cataract removal and lens implants bilaterally 2013. Past Anesthesia/Blood Transfusion Reactions: No Reported Reaction Date of Last Stent Placement:: 2007 Past Psychological History: No Psychological Hx Reported Additional Psychological History / Comment(s): Pt resides at home with his spouse. He is independent. He uses no assistive device. He has no home care agency use. He drives. Smoking Status: Former smoker Past Alcohol Use History: Unable to Obtain Additional Past Alcohol Use History / Comment(s): Pt states he never quit smoking for long. He started smoking when he was 32 yrs old and is still smoking about a ppd. Past Drug Use History: Unable to Obtain - Past Family History Father Family Medical History: No Reported History, Cancer, Hypertension Additional Family Medical History / Comment(s): Father in his 80's. Mother Family Medical History: Diabetes Mellitus, Hypertension Additional Family Medical History / Comment(s): Mother in her 80's. Medications and Allergies Home Medications Medication Instructions Recorded Confirmed Type Atorvastatin [Lipitor] 20 mg PO DAILY 08/18/14 08/05/18 History Tacrolimus [Prograf] 3 mg PO QAM 08/18/14 08/05/18 History Apixaban [Eliquis] 2.5 mg PO BID #60 tablet 06/16/15 08/05/18 Rx Allopurinol [Zyloprim] 100 mg PO DAILY 10/10/16 08/05/18 History Tacrolimus [Prograf] 4 mg PO HS 11/26/16 08/05/18 History hydrALAZINE HCL [Apresoline] 25 mg PO TID #90 tab 11/29/16 08/05/18 Rx Metoprolol Tartrate [Lopressor] 50 mg PO BID 12/25/16 08/05/18 History Calcium Acetate [Phoslo] 667 mg PO DAILY 08/05/18 08/05/18 History Cholecalciferol (Vitamin D3) 2,000 unit PO DAILY 08/05/18 08/05/18 History [Vitamin D3] Furosemide [Lasix] 80 mg PO TID 08/05/18 08/05/18 History HYDROcodone/APAP 10-325MG [[place] 1 tab PO TID 08/05/18 08/05/18 History 10-325] Insulin Aspart Protam & Aspart 15 unit SQ BID 08/05/18 08/05/18 History [NovoLOG MIX 70-30 Flexpen] Magnesium Oxide [Mag-Ox] 400 mg PO BID 08/05/18 08/05/18 History Multivitamins, Thera [Multivitamin 1 tab PO DAILY 08/05/18 08/05/18 History (formulary)] Mycophenolate Mofetil [Cellcept] 500 mg PO BID 08/05/18 08/05/18 History predniSONE 2.5 mg PO BID 08/05/18 08/05/18 History Allergies Allergy/AdvReac Type Severity Reaction Status Date / Time heaton Allergy Unknown Verified 08/05/18 19:37 codeine Allergy Rash/Hives Verified 08/05/18 19:37 erythromycin base Allergy Swelling Verified 08/05/18 19:37 Physical Exam Vitals: Vital Signs Temp Pulse Resp BP Pulse Ox 08/06/18 05:00 86 14 100/48 100 08/06/18 04:45 86 0 L 88/42 99 08/06/18 04:30 86 12 96/46 98 08/06/18 04:15 86 17 99/43 99 08/06/18 04:00 98.6 F 86 16 99/43 98 08/06/18 03:45 86 25 H 99 08/06/18 03:25 97 08/06/18 02:33 99.1 F 87 18 102/61 100 08/06/18 02:20 104/39 08/06/18 02:05 89 18 89/37 100 08/06/18 01:21 99.0 F 86 18 74/41 96 08/06/18 01:00 84 18 87/47 98 08/06/18 00:37 87 16 79/37 100 08/06/18 00:30 87 15 77/37 100 08/06/18 00:25 87 18 78/37 100 08/06/18 00:20 89 28 H 81/46 100 08/05/18 23:59 91 20 80/35 08/05/18 23:57 90 20 66/51 100 08/05/18 23:53 92 31 H 90/53 100 08/05/18 23:44 88 21 67/25 97 08/05/18 23:30 90 18 111/30 100 08/05/18 23:13 90 22 82/34 100 08/05/18 22:59 92 18 75/40 100 08/05/18 22:41 94 22 83/51 97 08/05/18 20:00 106 H 20 137/81 100 08/05/18 19:37 98.9 F 130 H 28 H 125/68 100 Intake and Output 08/05/18 08/05/18 08/06/18 14:59 22:59 06:59 Intake Total 496.948 Output Total 0 Balance 496.948 Intake: IV 484 Levofloxacin 750Mg-D5w 150 Pmx 750 mg In Dextrose/ Water 1 150ml.bag @ 100 mls/hr IVPB ONCE STA Rx#: [id number] Vancomycin 1,750 mg In 334 Sodium Chloride 0.9% 500 ml 500 ml @ 167 mls/hr IVPB ONCE ONE Rx#: [id number] Intake, IV Titration 12.948 Amount Norepinephrine 16 mg In 12.948 Sodium Chloride 0.9% 250 ml @ Titrate IV .Q0M [facility] Rx#:[id number] Output: Urine 0 Other: Weight 83.733 kg 80 kg - Constitutional General appearance: no acute distress - Respiratory Respiratory: bilateral: diminished - Cardiovascular Rhythm: irregularly irregular Heart sounds: normal: S1, S2 Abnormal Heart Sounds: systolic murmur Results 08/06/18 04:33 08/06/18 04:33 Cardiac Enzymes 08/05/18 08/05/18 08/06/18 Range/Units 20:01 20:01 04:33 AST 15 L (17-59) U/L CK-MB (CK-2) 0.6 (0.0-2.4) ng/mL Troponin I 0.043 H* 0.086 H* (0.000-0.034) ng/mL Coagulation 08/05/18 Range/Units 20:01 PT 12.6 H (9.0-12.0) sec APTT 28.1 (22.0-30.0) sec CBC 08/05/18 08/06/18 Range/Units 20:01 04:33 WBC 10.7 H 9.9 (3.8-10.6) k/uL RBC 3.59 L 2.77 L (4.30-5.90) m/uL Hgb 9.1 L 7.1 L D (13.0-17.5) gm/dL Hct 31.9 L 24.7 L (39.0-53.0) % Plt Count 474 H 362 (150-450) k/uL Comprehensive Metabolic Panel 08/05/18 08/06/18 Range/Units 20:01 04:33 Sodium 137 137 (137-145) mmol/L Potassium 4.0 3.7 (3.5-5.1) mmol/L Chloride 97 L 101 (98-107) mmol/L Carbon Dioxide 27 31 H (22-30) mmol/L BUN 36 H 36 H (9-20) mg/dL Creatinine 2.33 H 2.37 H (0.66-1.25) mg/dL Glucose 221 H 140 H (74-99) mg/dL Calcium 8.1 L 7.7 L (8.4-10.2) mg/dL AST 15 L (17-59) U/L ALT 21 (21-72) U/L Alkaline Phosphatase 140 H (38-126) U/L Total Protein 4.6 L (6.3-8.2) g/dL Albumin 2.5 L (3.5-5.0) g/dL Current Medications Generic Name Dose Route Start Last Admin Trade Name Freq PRN Reason Stop Dose Admin Acetaminophen 650 mg 08/05/18 21:34 Tylenol Tab PO Q6HR PRN Mild Pain or Fever > 100.5 Apixaban 2.5 mg 08/06/18 09:00 Eliquis PO BID [facility] Aspirin 81 mg 08/06/18 09:00 Aspirin PO DAILY [facility] Atorvastatin Calcium 20 mg 08/06/18 09:00 Lipitor PO DAILY [facility] Norepinephrine Bitartrate 16 250 mls @ 0 mls/hr 08/06/18 01:30 08/06/18 04:50 mg/ Sodium Chloride IV 4 mcg/min .Q0M [facility] 3.75 mls/hr Titration Protocol Titrate Vancomycin HCl 1,000 mg/ 250 mls @ 125 mls/hr 08/07/18 08:00 Sodium Chloride IVPB Q24H [facility] Insulin Aspart 0 unit 08/06/18 07:30 Novolog SQ ACHS [facility] Protocol Miscellaneous Information 1 each 08/06/18 01:45 Pharmacy To Dose Iv Vancomycin MISCELLANE DIRECTED PRN Per Protocol Naloxone HCl 0.2 mg 08/05/18 21:34 Narcan IV Q2M PRN Opioid Reversal Pantoprazole Sodium 40 mg 08/06/18 09:00 Protonix IV DAILY [facility] Intake and Output 08/05/18 08/05/18 08/06/18 14:59 22:59 06:59 Intake Total 496.948 Output Total 0 Balance 496.948 Intake: IV 484 Levofloxacin 750Mg-D5w 150 Pmx 750 mg In Dextrose/ Water 1 150ml.bag @ 100 mls/hr IVPB ONCE STA Rx#: [id number] Vancomycin 1,750 mg In 334 Sodium Chloride 0.9% 500 ml 500 ml @ 167 mls/hr IVPB ONCE ONE Rx#: [id number] Intake, IV Titration 12.948 Amount Norepinephrine 16 mg In 12.948 Sodium Chloride 0.9% 250 ml @ Titrate IV .Q0M [facility] Rx#:[id number] Output: Urine 0 Other: Weight 83.733 kg 80 kg Patient Weight 08/06/18 06:59 Weight 80 kg 08/06/18 04:33 08/06/18 04:33 Assessment and Plan Assessment: Assessment #1 severe constipation. The patient did undergo disimpaction. He is feeling better. #2 mildly abnormal cardiac enzymes which is likely related to chronic kidney disease. #3 mild congestive heart failure exacerbation secondary to systolic dysfunction. #4 coronary artery disease and prior angioplasty and stenting. The details are unknown. #5 end stage disease on hemodialysis #6 chronic anemia Plan #1 repeat the serial cardiac enzymes to assess the troponin trend. #2 if the troponin continues to be below 1 and the patient continues to be asymptomatic from the cardiac standpoint, I would pursue a conservative medical approach #3 resume statin. Add baby aspirin to the current medical regimen. Also resume his oral anticoagulation. #4 continue monitor the hemoglobin very closely. #5 repeat the echocardiogram to assess ejection fraction. The last echo from 2016 showed an EF of 35% #6 regarding the CHF, the patient is going to undergo dialysis later on today. Thank you for allowing us participate in his care and we will continue following up with him
[2018-08-06] MEDS: INSULIN ASPART (NovoLOG) 100 UNIT/ML VIAL SQ SCH ×4 (06:39→21:28)
[2018-08-06 06:42] LABS: Glucose,Whole Blood 141 mg/dL (75-99)
[2018-08-06] MEDS ORDERED: HEPARIN SODIUM,PORCINE 5,000 UNIT/ML 1 ML VIAL SQ SCH (08:00)
--- NOTE | 2018-08-06 08:24 | XR ---
EXAMINATION TYPE: XR chest 1V DATE OF EXAM: 08/06/2018 COMPARISON: 08/06/2018 earlier exam INDICATION: Fluid overload CHF TECHNIQUE: Single frontal view of the chest is obtained. FINDINGS: The heart size is normal. The pulmonary vasculature is normal. Mild left lower lobe infiltrate is present. Correlate for pneumonia. Double-lumen catheter is present on the right with the tips in the superior vena cava region. There i s a left central venous catheter with the tip in the proximal right atrium. IMPRESSION: 1. Left lower lobe infiltrate. Pneumonia is favored. Clinical correlation is recommended.
[2018-08-06] MEDS ORDERED: PANTOPRAZOLE 40 MG/10 ML VIAL IV SCH (09:00)
--- NOTE | 2018-08-06 09:43 | P.NPCON ---
History of Present Illness - Reason for Consult end stage renal disease - History of Present Illness Reason for consultation: End-stage renal disease History of present illness: Patient is a 72-year-old male seen in renal consultation for end-stage renal disease. Patient has a history of donor renal allograft from 2005. The surgery was done at [facility]. Patient's renal transplant failed and he is currently maintained on hemodialysis on a Saturday schedule. Patient presented to the hospital with generalized body pain. He is currently in the intensive care unit. An ice chest pain or shortness of breath. Overall feels better. He did require Levophed for short duration but is currently off. Most recent blood pressure was 118/48. He is awake and alert. No fever or chills. No cough. Last hemodialysis was on Saturday. Vital signs are stable. General: The patient appeared well nourished and normally developed. HEENT: Head exam is unremarkable. Neck is without jugular venous distension. LUNGS: Lungs are clear to auscultation and percussion. Breath sounds decreased. HEART: Rate and Rhythm are regular. First and second heart sounds normal. No murmurs, rubs or gallops. ABDOMEN: Abdominal exam reveals normal bowel sounds. Non-tender and non- distended. No evidence of peritonitis. EXTREMITITES: Trace edema. Past Medical History Past Medical History: Asthma, Cancer, Heart Failure, COPD, Diabetes Mellitus, GERD/Reflux, Hyperlipidemia, Hypertension, Osteoarthritis (OA), Pneumonia, Renal Disease, Seizure Disorder Additional Past Medical History / Comment(s): 06/13/15 Pt presented to [facility] ER with SOB. He is admitted with clinical impression of CHF exacerbation, dyspnea and hyperglycemia, renal failure. 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 dialysis m/w/f History of Any Multi-Drug Resistant Organisms: MRSA Date of last positivie culture/infection: 12/26/16 MDRO Source:: NASAL Past Surgical History: Heart Catheterization, Heart Catheterization With Stent Additional Past Surgical History / Comment(s): liver transplant 2006 d/t non alcoholic steatohepatits d/t fatty liver, colonoscopy, insertion lt arm fistula( in past had hemodialysis)-kidney implant 2011, lt shoulder sx has pin in place, rt wrist sx with pins, cataract removal and lens implants bilaterally 2013. Past Anesthesia/Blood Transfusion Reactions: No Reported Reaction Date of Last Stent Placement:: 2007 Past Psychological History: No Psychological Hx Reported Additional Psychological History / Comment(s): Pt resides at home with his spouse. He is independent. He uses no assistive device. He has no home care agency use. He drives. Smoking Status: Former smoker Past Alcohol Use History: Unable to Obtain Additional Past Alcohol Use History / Comment(s): Pt states he never quit smoking for long. He started smoking when he was 32 yrs old and is still smoking about a ppd. Past Drug Use History: Unable to Obtain - Past Family History Father Family Medical History: No Reported History, Cancer, Hypertension Additional Family Medical History / Comment(s): Father in his 80's. Mother Family Medical History: Diabetes Mellitus, Hypertension Additional Family Medical History / Comment(s): Mother in her 80's. Medications and Allergies Home Medications Medication Instructions Recorded Confirmed Type Atorvastatin [Lipitor] 20 mg PO DAILY 08/18/14 08/05/18 History Tacrolimus [Prograf] 3 mg PO QAM 08/18/14 08/05/18 History Apixaban [Eliquis] 2.5 mg PO BID #60 tablet 06/16/15 08/05/18 Rx Allopurinol [Zyloprim] 100 mg PO DAILY 10/10/16 08/05/18 History Tacrolimus [Prograf] 4 mg PO HS 11/26/16 08/05/18 History hydrALAZINE HCL [Apresoline] 25 mg PO TID #90 tab 11/29/16 08/05/18 Rx Metoprolol Tartrate [Lopressor] 50 mg PO BID 12/25/16 08/05/18 History Calcium Acetate [Phoslo] 667 mg PO DAILY 08/05/18 08/05/18 History Cholecalciferol (Vitamin D3) 2,000 unit PO DAILY 08/05/18 08/05/18 History [Vitamin D3] Furosemide [Lasix] 80 mg PO TID 08/05/18 08/05/18 History HYDROcodone/APAP 10-325MG [[place] 1 tab PO TID 08/05/18 08/05/18 History 10-325] Insulin Aspart Protam & Aspart 15 unit SQ BID 08/05/18 08/05/18 History [NovoLOG MIX 70-30 Flexpen] Magnesium Oxide [Mag-Ox] 400 mg PO BID 08/05/18 08/05/18 History Multivitamins, Thera [Multivitamin 1 tab PO DAILY 08/05/18 08/05/18 History (formulary)] Mycophenolate Mofetil [Cellcept] 500 mg PO BID 08/05/18 08/05/18 History predniSONE 2.5 mg PO BID 08/05/18 08/05/18 History Allergies Allergy/AdvReac Type Severity Reaction Status Date / Time heaton Allergy Unknown Verified 08/05/18 19:37 codeine Allergy Rash/Hives Verified 08/05/18 19:37 erythromycin base Allergy Swelling Verified 08/05/18 19:37 Physical Exam Vitals: Vital Signs Temp Pulse Resp BP Pulse Ox 08/06/18 07:00 75 16 118/48 99 08/06/18 06:45 84 21 111/44 98 08/06/18 06:30 69 11 L 102/53 99 08/06/18 06:15 71 12 112/50 100 08/06/18 06:00 85 95/48 99 08/06/18 05:45 85 3 L 93/44 99 08/06/18 05:30 85 3 L 100/48 99 08/06/18 05:15 86 4 L 90/41 99 08/06/18 05:00 86 14 100/48 100 08/06/18 04:45 86 0 L 88/42 99 08/06/18 04:30 86 12 96/46 98 08/06/18 04:15 86 17 99/43 99 08/06/18 04:00 98.6 F 86 16 99/43 98 08/06/18 03:45 86 25 H 99 08/06/18 03:25 97 08/06/18 02:33 99.1 F 87 18 102/61 100 08/06/18 02:20 104/39 08/06/18 02:05 89 18 89/37 100 08/06/18 01:21 99.0 F 86 18 74/41 96 08/06/18 01:00 84 18 87/47 98 08/06/18 00:37 87 16 79/37 100 08/06/18 00:30 87 15 77/37 100 08/06/18 00:25 87 18 78/37 100 08/06/18 00:20 89 28 H 81/46 100 08/05/18 23:59 91 20 80/35 08/05/18 23:57 90 20 66/51 100 08/05/18 23:53 92 31 H 90/53 100 08/05/18 23:44 88 21 67/25 97 08/05/18 23:30 90 18 111/30 100 08/05/18 23:13 90 22 82/34 100 08/05/18 22:59 92 18 75/40 100 08/05/18 22:41 94 22 83/51 97 08/05/18 20:00 106 H 20 137/81 100 08/05/18 19:37 98.9 F 130 H 28 H 125/68 100 Intake and Output 08/05/18 08/06/18 08/06/18 22:59 06:59 14:59 Intake Total 501.412 118.434 Output Total 0 0 Balance 501.412 118.434 Intake: IV 484 Levofloxacin 750Mg-D5w 150 Pmx 750 mg In Dextrose/ Water 1 150ml.bag @ 100 mls/hr IVPB ONCE STA Rx#: [id number] Vancomycin 1,750 mg In 334 Sodium Chloride 0.9% 500 ml 500 ml @ 167 mls/hr IVPB ONCE ONE Rx#: [id number] Intake, IV Titration 17.412 0.434 Amount Norepinephrine 16 mg In 17.412 0.434 Sodium Chloride 0.9% 250 ml @ Titrate IV .Q0M [facility] Rx#:[id number] Oral 118 Output: Urine 0 0 Other: Weight 83.733 kg 80 kg Results - Lab Results Most recent lab results Calcium 7.7 mg/dL (8.4-10.2) L 08/06/18 04:33 Phosphorus 2.2 mg/dL (2.5-4.5) L 08/06/18 04:33 Magnesium 2.1 mg/dL (1.6-2.3) 08/06/18 04:33 08/06/18 04:33 08/06/18 04:33 Assessment and Plan Plan: Assessment: 1. End-stage renal disease maintained on hemodialysis on a Saturday schedule. 2. Status post donor renal allograft in 2005 from [facility]. 3. Pneumonia maintained on antibiotics. 4. Systolic CHF with ejection fraction of 30-35%. 5. Chronic atrial fibrillation maintained on anticoagulation. 6. Constipation status post disimpaction in the ER. 7. Insulin-dependent diabetes mellitus. 8. Chronic kidney disease mineral bone disease. Phosphorus low at 2.2. 9. Anemia of chronic kidney disease. Plan: Hemodialysis today. Hold PhosLo. Resume immunosuppression medications. Check iron studies. Add Aranesp. Follow-up echocardiogram. Thank you for the consultation. I will continue to follow the patient with you during his hospital stay.
--- NOTE | 2018-08-06 09:55 | CONS ---
CONSULTATION This is a 72-year-old male who resides at home. He has a history of multiple medical problems including end-stage renal disease with hemodialysis Saturday, Saturday, Saturday, his last one being this past Saturday, heart failure, CAD with previous stent placement, COPD, diabetes, hypertension, hyperlipidemia, kidney transplant in 2011, liver transplant in 2005, non-Hodgkin's lymphoma and history of atrial fibrillation. He apparently presented to the emergency room last night with a complaint of chest pain, constipation, and mental status changes. I was called by the ER doctor last night. The patient initially came in with what appeared to be abdominal discomfort, distention and constipation. He was digitally disimpacted. Subsequent to that, the patient seemed relatively stable, but then developed some positional blood pressure changes. For that reason, the patient was admitted to the ICU. He looks in very poor shape. He has got significant edema. His legs are wrapped from wounds. He has got a sacral decubitus ulcer. He apparently resides at home with his and his son. He apparently goes to hemodialysis 3 times a week, taken there by his . He states he does not really move around too much at all. Not having any major issues at this time. His blood pressure here has been stable. He is currently on 2 L nasal cannula. He is not getting any IV fluids. He was initially on some Levophed, but that has been weaned off. I did ask the nurses to do a stat random cortisol level. The patient does have chronic atrial fibrillation. . HOME MEDICATIONS: Are many and include Lipitor, Prograf, Zyloprim, metoprolol, calcium, vitamin D3, Lasix, Sherman, insulin, Mag-Ox, multivitamins, CellCept, and prednisone. The patient is also on Eliquis and hydralazine. ALLERGIES: Include BERNAL CODEINE and ERYTHROMYCIN BASE. Medical problem list includes all the things I mentioned including end-stage renal disease with hemodialysis on Saturday, Saturday, Saturday, heart failure, CAD with stent placement, COPD, diabetes, hypertension, hyperlipidemia, kidney transplant in 2011, liver transplant in 2005, non-Hodgkin's lymphoma, and chronic atrial fibrillation. SURGICAL HISTORY: Quite extensive as well. Please see the ivy by the ER physician. Among other things, he has had heart catheterization with stents, liver transplant and kidney transplant, colonoscopy, left arm fistula for hemodialysis, left shoulder surgery, cataract surgery, etc. SOCIAL HISTORY: Positive for previous tobacco use. There is no mention of alcohol or illicit drug use. FAMILY HISTORY: Apparently positive for cancer, hypertension, and diabetes. REVIEW OF SYSTEMS: Somewhat unreliable. Other than the weakness, he really does not have much in the way of complaints. Denies abdominal pain at this time. States he is not having any difficulty breathing. No chest pain or chest discomfort. He states he is hungry and wants the eat and drink something. He is a DNR by the way. Current vital signs include a temperature of 98.6, heart rate 75, respiratory rate 16, blood pressure 118/48, mean 71, saturations 99% on [address] that heart rate is irregular. HEENT examination is grossly unremarkable. Nasal O2 in place. Mucous membranes are moist. Neck is supple. Full range of motion. No adenopathy or thyromegaly. Neck veins are flat. Cardiovascular examination reveals a regular rhythm and rate. He is clearly in atrial fibrillation. There is also systolic murmur grade 2/6. No S3, S4. Heart sounds are somewhat obscured. Lungs reveal mostly clear breath sounds. A few scattered rhonchi. He has not really taken deep breaths. There is some basilar crackles as well. Abdomen is mildly distended but soft. Bowel sounds are noted. Extremities reveal significant edema. His legs are wrapped. There are some areas of ecchymoses as well. Skin is positive for diffuse ecchymoses. There are wounds on the legs and also in the sacral area. Neurologic examination is difficult to assess, but he does move all 4 extremities and he does appear to be relatively alert. As mentioned, he is not receiving any IV fluids. He is on O2 at 2 L. LABS: Reviewed. White count 9.9, hemoglobin 7.1, hematocrit 24.7, platelet count 362,000. PT, INR were normal. PTT is 28.1. Sodium, potassium, chloride normal, CO2 is 31, anion gap 5, BUN and creatinine were 36 and 2.37. Glucose is 140. Troponins were 0.043 and 0.086. N terminal proBNP was 119,000. Albumin 2.5. The patient had multiple chest x-rays. I have looked at them all. It really does not show evidence of fluid overload. Maybe some mild cephalization and some mild basilar infiltrates, maybe tiny effusions. Not much going on. The infiltrate which is most prominent is at the right base. Medications are reviewed. Currently, he is on vancomycin. I am not sure why he is on any antibiotics at all at this point. ASSESSMENT: 1. Apparent mental status changes. When the patient first arrived to the ER, not present currently. 2. Abdominal distention and pain, likely related to constipation, status post digital disimpaction by the ER physician. 3. Positional blood pressure changes, which may be normal for this individual given his multitude of medical problems and his renal and cardiac issues. 4. End-stage renal disease with hemodialysis Saturday, Saturday, Saturday. His last dialysis session being this past Saturday. 5. History of congestive heart failure. 6. History of coronary artery disease with stent placements. 7. Chronic obstructive pulmonary disease from previous tobacco use. 8. Diabetes mellitus. 9. History of hypertension. 10.History of hyperlipidemia. 11.Status post kidney transplant 2011. 12.Status post liver transplant 2005. 13.Non-Hodgkin's lymphoma. 14.Chronic atrial fibrillation. 15.Rule out adrenal insufficiency. PLAN: The patient really could be discharged out of the unit today. He is very stable. We are going to do a random cortisol. Levophed was turned off many hours ago. He is awake and alert. Mental status is good. He is not complaining of any abdominal discomfort. Labs reviewed. Medications are reviewed. I will leave the vancomycin for now. Prognosis is guarded. He is a DNR. I seriously doubt that his is going to be able to take care of him at home given his present state of weakness and general medical debility. Additional recommendations and suggestions are forthcoming. I discussed the case with the nurse. SARINA / ENIDN: [id number] /
[2018-08-06] MEDS ORDERED: HEPARIN SODIUM,PORCINE 5,000 UNIT/ML 1 ML VIAL ONE (11:00)
--- NOTE | 2018-08-06 11:11 | ECHOF ---
Referral Reason:evaluation of CHF MEASUREMENTS -------- HEIGHT: 175.3 cm WEIGHT: 79.8 kg BP: 118/48 RVIDd: 3.7 cm (< 3.3) IVSd: 1.4 cm (0.6 - 1.1) LVIDd: 5.6 cm (3.9 - 5.3) LVPWd: 1.4 cm (0.6 - 1.1) IVSs: 1.8 cm LVIDs: 3.9 cm LVPWs: 1.9 cm LA Diam: 5.2 cm (2.7 - 3.8) LAESV Index (A-L): 92.44 ml/m Ao Diam: 2.9 cm (2.0 - 3.7) AV Cusp: 1.4 cm (1.5 - 2.6) EPSS: 1.3 cm AV maxP.54 mmHg AV meanP.05 mmHg AR PHT: 641 ms RAP: 5.00 mmHg RVSP: 46.64 mmHg MV EF SLOPE: 48.90 mm/s (70 - 150) MV EXCURSION: 2.08 cm (> 18.000) FINDINGS -------- This was a technically excellent study. The left ventricular size is normal. There is moderate concentric left ventricular hypertrophy. O verall left ventricular systolic function is mildly impaired with, an EF between 45 - 50 %. The right ventricle is mildly enlarged. LA is severely dilated >40 ml/m2 The right atrium is normal in size. Aortic valve is trileaflet and is moderately thickened. There is mild aortic regurgitation. There is mild aortic stenosis present. Peak/mean gradient across the Aortic Valve is 22.54mmHg / 12.05mm Hg. The mitral valve leaflets are mildly thickened. Mild mitral annular calcification present. Severe mitral regurgitation is present. Mild tricuspid regurgitation present. There is moderate pulmonary hypertension. The right ventric ular systolic pressure, as measured by Doppler, is 46.64mmHg. Moderate pulmonic regurgitation. The aortic root size is normal. Normal inferior vena cava with normal inspiratory collapse consistent with estimated right atrial pre ssure of 5 mmHg. There is a small pericardial effusion located near the left ventricle. Pleural Effusion with Fibrin . CONCLUSIONS -------- 1. This was a technically excellent study. 2. The left ventricular size is normal. 3. There is moderate concentric left ventricular hypertrophy. 4. Overall left ventricular systolic function is mildly impaired with, an EF between 45 - 50 %. 5. The right ventricle is mildly enlarged. 6. LA is severely dilated >40 ml/m2 7. The right atrium is normal in size. 8. Aortic valve is trileaflet and is moderately thickened. 9. There is mild aortic regurgitation. 10. There is mild aortic stenosis present. 11. Peak/mean gradient across the Aortic Valve is 22.54mmHg / 12.05mmHg. 12. The mitral valve leaflets are mildly thickened. 13. Mild mitral annular calcification present. 14. Severe mitral regurgitation is present. 15. Mild tricuspid regurgitation present. 16. There is moderate pulmonary hypertension. 17. The right ventricular systolic pressure, as measured by Doppler, is 46.64mmHg. 18. Moderate pulmonic regurgitation. 19. The aortic root size is normal. 20. Normal inferior vena cava with normal inspiratory collapse consistent with estimated right atrial pressure of 5 mmHg. 21. There is a small pericardial effusion located near the left ventricle. 22. Pleural Effusion with Fibrin. COSTING ANALYST: YAN Shankar
--- NOTE | 2018-08-06 11:33 | P.HPIM ---
History of Present Illness H&P Date: 08/06/18 This is a 72-year-old male patient. Presented to the emergency room multiple vague complaints including constipation. Upon arrival to ER patient was found to be in CHF exacerbation with possible pneumonia. Patient does have a significant past medical history of end-stage renal disease in which she gets hemodialysis Saturday. Additional medical history includes liver and kidney transplant, asthma, heart failure, COPD, diabetes mellitus, hyperlipidemia, GERD, Hypertension, heart cath with stents, atrial fibrillation which she is on eliquis, non-Hodgkin's lymphoma in 2006 and seizures. Chest x- ray completed showing mild infiltrate in the right lung base compared to last exam. No heart failure. There is new small right pleural effusion. Due to patient's complaint of consultation abdominal x-ray completed in ER showing nonacute abdomen and some vascular calcification. EKG completed showing accelerated junctional rhythm. Troponin slightly elevated at 0.043 and 0.07. BNP elevated at 119,000. Cardiology, nephrology and critical care management has been consulted. Patient currently on vancomycin. Patient also briefly on levophed for pressure support but has since been DC'd due to improvement with blood pressure. Patient to get hemodialysis per nephrology today. Case discussed with nephrology Dr. Wong. Okay to resume home dose of Lasix 80 mg 3 times a day per nephrology. At this time patient denies any chest pain or shortness of breath. Patient denies nausea vomiting or diarrhea. Patient denies any urinary burning or frequency. Patient is currently on room air. Review of Systems Please refer to HPI otherwise unremarkable Past Medical History Past Medical History: Asthma, Cancer, Heart Failure, COPD, Diabetes Mellitus, GERD/Reflux, Hyperlipidemia, Hypertension, Osteoarthritis (OA), Pneumonia, Renal Disease, Seizure Disorder Additional Past Medical History / Comment(s): 06/13/[address] [facility] ER with SOB. He is admitted with clinical impression of CHF exacerbation, dyspnea and hyperglycemia, renal failure. 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 dialysis m/w/f History of Any Multi-Drug Resistant Organisms: MRSA Date of last positivie culture/infection: 12/26/16 MDRO Source:: NASAL Past Surgical History: Heart Catheterization, Heart Catheterization With Stent Additional Past Surgical History / Comment(s): liver transplant 2005 d/t non alcoholic steatohepatits d/t fatty liver, colonoscopy, insertion lt arm fistula( in past had hemodialysis)-kidney implant 2011, lt shoulder sx has pin in place, rt wrist sx with pins, cataract removal and lens implants bilaterally 2013. Past Anesthesia/Blood Transfusion Reactions: No Reported Reaction Date of Last Stent Placement:: 2007 Past Psychological History: No Psychological Hx Reported Additional Psychological History / Comment(s): Pt resides at home with his spouse. He is independent. He uses no assistive device. He has no home care agency use. He drives. Smoking Status: Former smoker Past Alcohol Use History: Unable to Obtain Additional Past Alcohol Use History / Comment(s): Pt states he never quit smoking for long. He started smoking when he was 32 yrs old and is still smoking about a ppd. Past Drug Use History: Unable to Obtain - Past Family History Father Family Medical History: No Reported History, Cancer, Hypertension Additional Family Medical History / Comment(s): Father in his 80's. Mother Family Medical History: Diabetes Mellitus, Hypertension Additional Family Medical History / Comment(s): Mother in her 80's. Medications and Allergies Home Medications Medication Instructions Recorded Confirmed Type Atorvastatin [Lipitor] 20 mg PO DAILY 08/18/14 08/05/18 History Tacrolimus [Prograf] 3 mg PO QAM 08/18/14 08/05/18 History Apixaban [Eliquis] 2.5 mg PO BID #60 tablet 06/16/15 08/05/18 Rx Allopurinol [Zyloprim] 100 mg PO DAILY 10/10/16 08/05/18 History Tacrolimus [Prograf] 4 mg PO HS 11/26/16 08/05/18 History hydrALAZINE HCL [Apresoline] 25 mg PO TID #90 tab 11/29/16 08/05/18 Rx Metoprolol Tartrate [Lopressor] 50 mg PO BID 12/25/16 08/05/18 History Calcium Acetate [Phoslo] 667 mg PO DAILY 08/05/18 08/05/18 History Cholecalciferol (Vitamin D3) 2,000 unit PO DAILY 08/05/18 08/05/18 History [Vitamin D3] Furosemide [Lasix] 80 mg PO TID 08/05/18 08/05/18 History HYDROcodone/APAP 10-325MG [[place] 1 tab PO TID 08/05/18 08/05/18 History 10-325] Insulin Aspart Protam & Aspart 15 unit SQ BID 08/05/18 08/05/18 History [NovoLOG MIX 70-30 Flexpen] Magnesium Oxide [Mag-Ox] 400 mg PO BID 08/05/18 08/05/18 History Multivitamins, Thera [Multivitamin 1 tab PO DAILY 08/05/18 08/05/18 History (formulary)] Mycophenolate Mofetil [Cellcept] 500 mg PO BID 08/05/18 08/05/18 History predniSONE 2.5 mg PO BID 08/05/18 08/05/18 History Allergies Allergy/AdvReac Type Severity Reaction Status Date / Time heaton Allergy Unknown Verified 08/05/18 19:37 codeine Allergy Rash/Hives Verified 08/05/18 19:37 erythromycin base Allergy Swelling Verified 08/05/18 19:37 Physical Exam Vitals: Vital Signs Temp Pulse Resp BP Pulse Ox 08/06/18 07:00 75 16 118/48 99 08/06/18 06:45 84 21 111/44 98 08/06/18 06:30 69 11 L 102/53 99 08/06/18 06:15 71 12 112/50 100 08/06/18 06:00 85 95/48 99 08/06/18 05:45 85 3 L 93/44 99 08/06/18 05:30 85 3 L 100/48 99 08/06/18 05:15 86 4 L 90/41 99 08/06/18 05:00 86 14 100/48 100 08/06/18 04:45 86 0 L 88/42 99 08/06/18 04:30 86 12 96/46 98 08/06/18 04:15 86 17 99/43 99 08/06/18 04:00 98.6 F 86 16 99/43 98 08/06/18 03:45 86 25 H 99 08/06/18 03:25 97 08/06/18 02:33 99.1 F 87 18 102/61 100 08/06/18 02:20 104/39 08/06/18 02:05 89 18 89/37 100 08/06/18 01:21 99.0 F 86 18 74/41 96 08/06/18 01:00 84 18 87/47 98 08/06/18 00:37 87 16 79/37 100 08/06/18 00:30 87 15 77/37 100 08/06/18 00:25 87 18 78/37 100 08/06/18 00:20 89 28 H 81/46 100 08/05/18 23:59 91 20 80/35 08/05/18 23:57 90 20 66/51 100 08/05/18 23:53 92 31 H 90/53 100 08/05/18 23:44 88 21 67/25 97 08/05/18 23:30 90 18 111/30 100 08/05/18 23:13 90 22 82/34 100 08/05/18 22:59 92 18 75/40 100 08/05/18 22:41 94 22 83/51 97 08/05/18 20:00 106 H 20 137/81 100 08/05/18 19:37 98.9 F 130 H 28 H 125/68 100 Intake and Output 08/05/18 08/06/18 08/06/18 22:59 06:59 14:59 Intake Total 501.412 118.434 Output Total 0 0 Balance 501.412 118.434 Intake: IV 484 Levofloxacin 750Mg-D5w 150 Pmx 750 mg In Dextrose/ Water 1 150ml.bag @ 100 mls/hr IVPB ONCE STA Rx#: [id number] Vancomycin 1,750 mg In 334 Sodium Chloride 0.9% 500 ml 500 ml @ 167 mls/hr IVPB ONCE ONE Rx#: [id number] Intake, IV Titration 17.412 0.434 Amount Norepinephrine 16 mg In 17.412 0.434 Sodium Chloride 0.9% 250 ml @ Titrate IV .Q0M [facility] Rx#:[id number] Oral 118 Output: Urine 0 0 Other: Weight 83.733 kg 80 kg Head normocephalic Neck supple Lungs diminished bilaterally with scattered rhonchi Heart irregular rate Abdomen is rounded soft nontender Extremities +2 lower extremity edema with ecchymosis to bilateral legs. Legs are currently wrapped in Kerlex Results CBC & Chem 7: 08/06/18 04:33 08/06/18 04:33 Labs: Abnormal Lab Results - Last 24 Hours (Table) 08/05/18 08/05/18 08/05/18 Range/Units 20:01 20:01 20:01 WBC 10.7 H (3.8-10.6) k/uL RBC 3.59 L (4.30-5.90) m/uL Hgb 9.1 L (13.0-17.5) gm/dL Hct 31.9 L (39.0-53.0) % MCHC 28.6 L (31.0-37.0) g/dL RDW 19.5 H (11.5-15.5) % Plt Count 474 H (150-450) k/uL Neutrophils # 10.1 H (1.3-7.7) k/uL Lymphocytes # 0.3 L (1.0-4.8) k/uL PT (9.0-12.0) sec INR (<1.2) Chloride 97 L (98-107) mmol/L Carbon Dioxide (22-30) mmol/L BUN 36 H (9-20) mg/dL Creatinine 2.33 H (0.66-1.25) mg/dL Glucose 221 H (74-99) mg/dL POC Glucose (mg/dL) (75-99) mg/dL Calcium 8.1 L (8.4-10.2) mg/dL Phosphorus (2.5-4.5) mg/dL AST 15 L (17-59) U/L Alkaline Phosphatase 140 H (38-126) U/L Total Creatine Kinase <20 L (55-170) U/L Troponin I 0.043 H* (0.000-0.034) ng/mL Total Protein 4.6 L (6.3-8.2) g/dL Albumin 2.5 L (3.5-5.0) g/dL 08/05/18 08/06/18 08/06/18 Range/Units 20:01 02:56 04:33 WBC (3.8-10.6) k/uL RBC 2.77 L (4.30-5.90) m/uL Hgb 7.1 L D (13.0-17.5) gm/dL Hct 24.7 L (39.0-53.0) % MCHC 28.8 L (31.0-37.0) g/dL RDW 19.4 H (11.5-15.5) % Plt Count (150-450) k/uL Neutrophils # 8.8 H (1.3-7.7) k/uL Lymphocytes # 0.6 L (1.0-4.8) k/uL PT 12.6 H (9.0-12.0) sec INR 1.2 H (<1.2) Chloride (98-107) mmol/L Carbon Dioxide (22-30) mmol/L BUN (9-20) mg/dL Creatinine (0.66-1.25) mg/dL Glucose (74-99) mg/dL POC Glucose (mg/dL) 145 H (75-99) mg/dL Calcium (8.4-10.2) mg/dL Phosphorus (2.5-4.5) mg/dL AST (17-59) U/L Alkaline Phosphatase (38-126) U/L Total Creatine Kinase (55-170) U/L Troponin I (0.000-0.034) ng/mL Total Protein (6.3-8.2) g/dL Albumin (3.5-5.0) g/dL 08/06/18 08/06/18 08/06/18 Range/Units 04:33 04:33 06:32 WBC (3.8-10.6) k/uL RBC (4.30-5.90) m/uL Hgb (13.0-17.5) gm/dL Hct (39.0-53.0) % MCHC (31.0-37.0) g/dL RDW (11.5-15.5) % Plt Count (150-450) k/uL Neutrophils # (1.3-7.7) k/uL Lymphocytes # (1.0-4.8) k/uL PT (9.0-12.0) sec INR (<1.2) Chloride (98-107) mmol/L Carbon Dioxide 31 H (22-30) mmol/L BUN 36 H (9-20) mg/dL Creatinine 2.37 H (0.66-1.25) mg/dL Glucose 140 H (74-99) mg/dL POC Glucose (mg/dL) 141 H (75-99) mg/dL Calcium 7.7 L (8.4-10.2) mg/dL Phosphorus 2.2 L (2.5-4.5) mg/dL AST (17-59) U/L Alkaline Phosphatase (38-126) U/L Total Creatine Kinase (55-170) U/L Troponin I 0.086 H* (0.000-0.034) ng/mL Total Protein (6.3-8.2) g/dL Albumin (3.5-5.0) g/dL Thrombosis Risk Factor Assmnt - Choose All That Apply Any of the Below Risk Factors Present?: Yes Each Factor Represents 1 point: Abnormal pulmonary function (COPD), Heart failure (<1month), Obesity (BMI >25), Swollen legs (current) Other Risk Factors: Yes Each Risk Factor Represents 2 Points: Age 61-74 years, Central venous access Other congenital or acquired thrombophilia - If yes, enter type in comment: No Thrombosis Risk Factor Assessment Total Risk Factor Score: 8 Thrombosis Risk Factor Assessment Level: High Risk Assessment and Plan Assessment: 1. Abdominal distention and pain. Abdominal x-ray completed in the ER showing nonacute abdomen. Extensive vascular calcification. Patient was disimpacted by ER physician. Pain is resolved 2. Possible pneumonia. Chest x-ray completed showing new mild infiltrate at the right lung base compared to last exam. No heart failure. There is small right pleural effusion. Dr. James is following for pulmonary. Vancomycin has been ordered 3. Hypotension. Patient was briefly on Levophed. Blood pressure has improved. Home BP meds resumed parameters 4. Elevated troponins. Initial troponin 0.043 0.086 Cardiology has been consulted. 2-D echo has been ordered 5. End-stage renal disease. Patient receives hemodialysis Saturday. Patient reports he did receive his dialysis on Saturday. Nephrology services are following 6. Acute on chronic systolic congestive heart failure. BNP 119,[address] Wong per nephrology. Okay to resume patient's home Lasix dose. 2-D echo has been ordered per cardiology 7. History of coronary artery disease with stent placement 8. History of chronic proximal atrial fibrillation. Patient maintained on eliquis 9. Diabetes mellitus. Home meds resumed plus sliding scale. Hemoglobin A1c has been ordered 10. Status post kidney transplant in 2011 11. Status post liver transplant 2005 12. Non-Hodgkin's lymphoma in 2006 13. History of hyperlipidemia 14. History of essential hypertension. Patient had episode of hypotension here. Blood pressure has significantly improved. Home meds resumed with parameters 15. Increased weakness. Will consult physical therapy and social work for possible ECF placement upon discharge DVT prophylaxis eliquis. GI prophylaxis Protonix Time with Patient: Greater than 30 (Greater than 60% of the total time spent in counseling and coordination of care. I performed an examination of the patient and discussed their management with the Nurse Practitioner. I have reviewed the Nurse Practitioner's notes and agree with the documented findings and plan of care)
[2018-08-06 11:41] LABS: Glucose,Whole Blood 112 mg/dL (75-99)
[2018-08-06 12:45] LABS: Glucose,Whole Blood 107 mg/dL (75-99)
[2018-08-06 14:38] LABS: Hemoglobin A1C 7.5 % (4.0-6.0)
[2018-08-06] MEDS: APIXABAN 2.5 MG TABLET PO SCH ×2 (16:18→23:38)
[2018-08-06] MEDS: ASPIRIN 81 MG PO SCH (16:18)
[2018-08-06] MEDS: ATORVASTATIN 20 MG TAB PO SCH (16:19)
[2018-08-06] MEDS: FUROSEMIDE 80 MG TAB PO SCH ×2 (16:20→23:38)
[2018-08-06] MEDS: TACROLIMUS 1 MG CAP PO SCH ×2 (16:20→23:38)
[2018-08-06] MEDS: hydrALAZINE HCL 25 MG TAB PO SCH ×2 (16:21→21:29)
[2018-08-06] MEDS: MYCOPHENOLATE MOFETIL 250 MG CAP PO SCH (16:24)
[2018-08-06 16:25] LABS: Iron Saturation 4.73 (15.00-50.00)
[2018-08-06 16:40] LABS: Glucose,Whole Blood 107 mg/dL (75-99)
[2018-08-06] MEDS: DARBEPOETIN ALFA 40 MCG/0.4 ML SYRINGE SQ SCH (19:18)
[2018-08-06 20:32] LABS: Glucose,Whole Blood 120 mg/dL (75-99)
[2018-08-06] MEDS: predniSONE 2.5 MG TAB PO SCH (21:24)
[2018-08-06] MEDS: METOPROLOL TARTRATE 50 MG TAB PO SCH (21:24)
[2018-08-06] MEDS: MAGNESIUM OXIDE 400 MG TAB PO SCH (21:24)
[2018-08-06] MEDS: INSULN ASP PRT/INSULIN ASPART 100 UNIT/ML 10 ML VIAL SQ SCH (21:28)
[2018-08-06] MEDS: ACETAMINOPHEN TAB 325 MG TAB PO PRN (23:38)
[2018-08-07 04:55] LABS: Anisocytosis Slight; Basophils % (A) 0 %; Eosinophils % (A) 0 %; HCT 21.4 % (39.0-53.0); Hypochromasia Marked; Lymphocytes # (A) 0.4 k/uL (1.0-4.8); Lymphocytes % (A) 5 %; MCH 26.8 pg (25.0-35.0); MCHC 30.1 g/dL (31.0-37.0); MCV 88.9 fL (80.0-100.0); Mean Platelet Volume 6.4; Monocytes # (A) 0.4 k/uL (0-1.0); Monocytes % (A) 5 %; Neutrophils # (A) 6.4 k/uL (1.3-7.7); Neutrophils % (A) 88 %; Platelet Count 314 k/uL (150-450); RBC 2.41 m/uL (4.30-5.90); RDW 19.3 % (11.5-15.5); WBC 7.3 k/uL (3.8-10.6)
[2018-08-07 04:58] LABS: HGB 6.4 gm/dL (13.0-17.5)
[2018-08-07 05:00] LABS: Calcium 7.8 mg/dL (8.4-10.2); Phosphorus 2.2 mg/dL (2.5-4.5); Potassium 3.7 mmol/L (3.5-5.1)
[2018-08-07 06:55] LABS: Glucose,Whole Blood 100 mg/dL (75-99)
--- NOTE | 2018-08-07 06:56 | P.PN ---
Subjective Progress Note Date: 08/07/18 Principal diagnosis: STEMI This is a pleasant 72-year-old gentleman who sees Dr. EDDIE Nava in the office on regular basis with a past medical history significant for coronary artery disease and the patient underwent stent placement about 8 years ago, the details on that are unavailable at this point, known cardiomyopathy based on an echocardiogram was performed in 2017 showing an ejection fraction of 35%, end stage renal disease on hemodialysis, chronic persistent atrial fibrillation maintaining on oral anticoagulation with Eliquis, as well as multiple comorbid conditions, presented to the hospital he goes of constipation. The patient was constipated for about a week. In the emergency room he did undergo disimpaction. His symptoms has improved. He was experiencing abdominal discomfort with the constipation. No nausea or vomiting. No fever or chills. No symptoms of chest pain or chest discomfort, difficulty breathing , feeling of heart racing or fluttering, dizziness or lightheadedness, or syncope. The abdominal x-ray did not show any acute abdomen. The chest x-ray showed mild pulmonary vascular congestions. The EKG showed atrial fibrillation with left anterior fascicular block. No ischemic ST or T-wave abnormalities noted. The troponin came in to be slightly elevated and below 1. The BNP is 11,000. The hemoglobin came down to 7.1. The rest of the blood work came in to be unremarkable aside creatinine which was elevated but the patient is known to be on dialysis. We get involved in the care of the patient for abnormal cardiac enzymes. The patient did not experience any symptoms of chest pain or chest discomfort. The troponin is a slightly elevated which is likely related to the chronic kidney disease. Beside that the EKG did not show any significant or ischemic ST or T- wave abnormalities concerning for ischemia. On follow-up with the patient today, 08/07/2018, overall he is feeling better. The blood pressure has been marginally low. I will DC the hydralazine. Also hemoglobin came in to be 6.4 and I will DC the Eliquis. I will suggest giving the patient one unit of packed RBC. He continues to be on aspirin, statin, and metoprolol. The echo showed impaired LV function with EF around 45% with mild aortic stenosis and moderate pulmonary hypertension. Objective - Vital Signs Vital signs: Vital Signs Temp 98.9 F 08/07/18 04:00 Pulse 85 08/07/18 04:00 Resp 16 01/31/19 04:00 BP 101/59 08/07/18 04:00 Pulse Ox 91 L 08/07/18 04:00 Intake & Output 08/06/18 08/06/18 08/07/18 06:59 18:59 06:59 Intake Total 501.412 118.434 635 Output Total 0 0 50 Balance 501.412 118.434 585 Weight 80 kg 80 kg 79.8 kg Intake: IV 484 Levofloxacin 750Mg-D5w 150 Pmx 750 mg In Dextrose/ Water 1 150ml.bag @ 100 mls/hr IVPB ONCE STA Rx#: [id number] Vancomycin 1,750 mg In 334 Sodium Chloride 0.9% 500 ml 500 ml @ 167 mls/hr IVPB ONCE ONE Rx#: [id number] Intake, IV Titration 17.412 0.434 Amount Norepinephrine 16 mg In 17.412 0.434 Sodium Chloride 0.9% 250 ml @ Titrate IV .Q0M [facility] Rx#:[id number] Oral 118 635 Output: Urine 0 0 50 Other: Voiding Method Urinal - Constitutional General appearance: Present: no acute distress - Respiratory Respiratory: bilateral: diminished - Cardiovascular Rhythm: irregularly irregular Heart sounds: normal: S1, S2 Abnormal Heart Sounds: Present: systolic murmur - Labs CBC & Chem 7: 08/07/18 04:19 08/07/18 04:19 Labs: Abnormal Lab Results - Last 24 Hours (Table) 08/06/18 08/06/18 08/06/18 Range/Units 04:33 04:33 11:39 RBC (4.30-5.90) m/uL Hgb (13.0-17.5) gm/dL Hct (39.0-53.0) % MCHC (31.0-37.0) g/dL RDW (11.5-15.5) % Lymphocytes # (1.0-4.8) k/uL Sodium (137-145) mmol/L BUN (9-20) mg/dL Creatinine (0.66-1.25) mg/dL POC Glucose (mg/dL) 112 H (75-99) mg/dL Hemoglobin A1c 7.5 H (4.0-6.0) % Calcium (8.4-10.2) mg/dL Phosphorus (2.5-4.5) mg/dL Iron 7 L (65-175) ug/dL TIBC 148 L (228-460) ug/dL Iron Saturation 4.73 L (15.00-50.00) Ferritin 1736.7 H (22.0-322.0) ng/mL Troponin I (0.000-0.034) ng/mL 08/06/18 08/06/18 08/06/18 Range/Units 12:43 12:45 16:38 RBC (4.30-5.90) m/uL Hgb (13.0-17.5) gm/dL Hct (39.0-53.0) % MCHC (31.0-37.0) g/dL RDW (11.5-15.5) % Lymphocytes # (1.0-4.8) k/uL Sodium (137-145) mmol/L BUN (9-20) mg/dL Creatinine (0.66-1.25) mg/dL POC Glucose (mg/dL) 107 H 107 H (75-99) mg/dL Hemoglobin A1c (4.0-6.0) % Calcium (8.4-10.2) mg/dL Phosphorus (2.5-4.5) mg/dL Iron (65-175) ug/dL TIBC (228-460) ug/dL Iron Saturation (15.00-50.00) Ferritin (22.0-322.0) ng/mL Troponin I 0.079 H* (0.000-0.034) ng/mL 08/06/18 08/07/18 08/07/18 Range/Units 20:30 04:19 04:19 RBC 2.41 L (4.30-5.90) m/uL Hgb 6.4 L* (13.0-17.5) gm/dL Hct 21.4 L (39.0-53.0) % MCHC 30.1 L (31.0-37.0) g/dL RDW 19.3 H (11.5-15.5) % Lymphocytes # 0.4 L (1.0-4.8) k/uL Sodium 132 L (137-145) mmol/L BUN 26 H (9-20) mg/dL Creatinine 1.90 H (0.66-1.25) mg/dL POC Glucose (mg/dL) 120 H (75-99) mg/dL Hemoglobin A1c (4.0-6.0) % Calcium 7.8 L (8.4-10.2) mg/dL Phosphorus 2.2 L (2.5-4.5) mg/dL Iron (65-175) ug/dL TIBC (228-460) ug/dL Iron Saturation (15.00-50.00) Ferritin (22.0-322.0) ng/mL Troponin I (0.000-0.034) ng/mL Assessment and Plan Assessment: Assessment #1 severe constipation. The patient did undergo disimpaction. He is feeling better. #2 mildly abnormal cardiac enzymes which is likely related to chronic kidney disease. #3 mild congestive heart failure exacerbation secondary to systolic dysfunction. #4 coronary artery disease and prior angioplasty and stenting. The details are unknown. #5 end stage disease on hemodialysis #6 chronic anemia Plan #1 conservative medical approach regarding the abnormal cardiac enzymes in view of the absence of chest pain and chest discomfort. #2 continue aspirin, metoprolol, and statin #3 DC the oral anticoagulation in view of the low hemoglobin #4 DC hydralazine in view of the low blood pressure #5 continue dialysis. The nephrology service. Thank you for allowing us participate in his care and we will continue following up with him
--- NOTE | 2018-08-07 07:53 | PN ---
PROGRESS NOTE DATE OF SERVICE: August 07, 2018 This is a 72-year-old male who I saw yesterday in consultation. He was admitted through the emergency room with a number of medical issues, but it basically boiled down to 3 things. He had some mental status changes, which actually had improved by the time he came up to the ICU. He had abdominal distention and constipation, which resolved as well because he was disimpacted in the emergency room. Thoroughly, there was an issue of low blood pressure. For a period of time, he was on Levophed. Currently, he is just on room air. He is not receiving any IV fluids. He had hemodialysis yesterday. In addition to the above, he does have end-stage renal disease with Saturday, Saturday, Saturday hemodialysis, congestive heart failure, CAD with previous stent placement, COPD, diabetes, and a multitude of other medical problems. In addition, the patient has had both renal and liver transplantation in 2011 in 2005 respectively. The patient still resides at home. Rehab may be a good option for the patient. The patient apparently has a family member and a who helps him get to dialysis 3 times a week. Current vital signs are reviewed. Temperature 98.9, heart rate 85, respiratory rate 16, blood pressure 101/59, mean 73, room air saturation 95%. T-max 99.1. Appears about the same as he did yesterday. A little sleepy and lethargic, but does arouse and is appropriate. HEENT examination is grossly unremarkable. No supplemental oxygen noted. NECK: Supple. Full range of motion. No adenopathy or thyromegaly. Neck veins are flat. Cardiovascular examination reveals distant heart sounds. He has got an irregular rhythm. Heart rate is 85. He is in chronic atrial fibrillation. S1, S2 normal. Lungs reveal a few scattered rhonchi. No wheezes or crackles. Breath sounds are equal bilaterally. Abdomen is soft. Bowel sounds are heard. Extremities reveal some edema. Legs are wrapped. Skin reveals areas of ecchymoses and bruising. Neurologic examination is brief, but nonfocal. No chest x-ray today. Labs are reviewed. White count 7.3, hemoglobin 6.4, hematocrit 21.4, platelet count 314,000. Sodium 132, potassium 3.7, chloride 98, CO2 of 29, anion gap 5. BUN and creatinine were 26 and 1.90. Troponin was 0.079. A cortisol level was 32. Microbiologic studies are negative. Medications are reviewed. ASSESSMENT: 1. Mental status changes, resolved, may relate to metabolic circumstances such as end- stage renal disease. 2. Abdominal distention with constipation, relieved, with disimpaction in the emergency room. 3. Positional blood pressure changes, with orthostasis, seemingly resolved. 4. End-stage renal disease with hemodialysis Saturday, Saturday, Saturday. 5. History of congestive heart failure. 6. History of coronary artery disease with previous stent placement. 7. Chronic obstructive pulmonary disease, secondary to chronic tobacco use. 8. Diabetes mellitus. 9. History of hypertension. 10.Hyperlipidemia. 11.Status post kidney transplant, 2011. 12.Status post liver transplant 2005. 13.Non-Hodgkin's lymphoma. 14.Chronic atrial fibrillation. PLAN: From my perspective, the patient is doing well. No evidence of adrenal insufficiency. Cortisol level was in the normal range. The patient is full medical management short of intubation. We will continue to follow. Medications are reviewed. No obvious indication of infection and antibiotics can be discontinued. We will continue to follow. Prognosis is poor. Code status will be addressed. The patient will receive 1 unit of PRBCs. MMODL / IJN: [id number] / MTDYakelin
[2018-08-07] MEDS: INSULIN ASPART (NovoLOG) 100 UNIT/ML VIAL SQ SCH ×4 (07:55→21:15)
[2018-08-07] MEDS ORDERED: VANCOMYCIN 1,000 MG in SODIUM CHLORIDE 0.9% 250 ML IVPB SCH (08:00)
[2018-08-07] MEDS: INSULN ASP PRT/INSULIN ASPART 100 UNIT/ML 10 ML VIAL SQ SCH ×2 (08:00→17:56)
[2018-08-07] MEDS: ALLOPURINOL 100 MG TAB PO SCH (08:12)
[2018-08-07] MEDS: ATORVASTATIN 20 MG TAB PO SCH (08:12)
[2018-08-07] MEDS: ASPIRIN 81 MG PO SCH (08:12)
[2018-08-07] MEDS: MAGNESIUM OXIDE 400 MG TAB PO SCH ×2 (08:13→22:31)
[2018-08-07] MEDS: METOPROLOL TARTRATE 50 MG TAB PO SCH ×2 (08:13→22:31)
[2018-08-07] MEDS: FUROSEMIDE 80 MG TAB PO SCH ×3 (08:13→22:31)
[2018-08-07] MEDS: PANTOPRAZOLE 40 MG TABLET PO SCH (08:14)
[2018-08-07] MEDS: predniSONE 2.5 MG TAB PO SCH ×2 (08:14→22:32)
[2018-08-07] MEDS: MYCOPHENOLATE MOFETIL 250 MG CAP PO SCH ×2 (08:14→22:32)
[2018-08-07] MEDS: TACROLIMUS 1 MG CAP PO SCH ×2 (08:15→22:31)
[2018-08-07] MEDS: CHOLECALCIFEROL 1,000 UNIT TAB PO SCH (08:17)
--- NOTE | 2018-08-07 08:50 | P.PN ---
Subjective Patient is seen in follow-up for end-stage renal disease. He is maintained on hemodialysis on a Saturday schedule. Tolerated hemodialysis well yesterday. He did have some nosebleed last night. Hemoglobin is 6.4 this morning. Hemodynamically stable. Echocardiogram revealed ejection fraction of 45-50% with severe mitral regurgitation and moderate pulmonary hypertension. Vital signs are stable. General: The patient appeared well nourished and normally developed. HEENT: Head exam is unremarkable. Neck is without jugular venous distension. LUNGS: Lungs are clear to auscultation and percussion. Breath sounds decreased. HEART: Rate and Rhythm are regular. First and second heart sounds normal. No murmurs, rubs or gallops. ABDOMEN: Abdominal exam reveals normal bowel sounds. Non-tender and non- distended. No evidence of peritonitis. EXTREMITITES: 1+ edema. Wrapped. No obvious drainage. Objective - Vital Signs Vital signs: Vital Signs Temp 98.9 F 08/07/18 04:00 Pulse 85 08/07/18 04:00 Resp 16 08/07/18 08:00 BP 101/59 08/07/18 04:00 Pulse Ox 92 L 08/07/18 07:28 Intake & Output 08/06/18 08/07/18 08/07/18 18:59 06:59 18:59 Intake Total 118.434 635 Output Total 0 50 Balance 118.434 585 Weight 80 kg 79.8 kg Intake: Intake, IV Titration 0.434 Amount Norepinephrine 16 mg In 0.434 Sodium Chloride 0.9% 250 ml @ Titrate IV .Q0M [facility] Rx#:[id number] Oral 118 635 Output: Urine 0 50 Other: Voiding Method Urinal Urinal - Labs CBC & Chem 7: 08/07/18 04:19 08/07/18 04:19 Labs: Abnormal Lab Results - Last 24 Hours (Table) 08/06/18 08/06/18 08/06/18 Range/Units 04:33 04:33 11:39 RBC (4.30-5.90) m/uL Hgb (13.0-17.5) gm/dL Hct (39.0-53.0) % MCHC (31.0-37.0) g/dL RDW (11.5-15.5) % Lymphocytes # (1.0-4.8) k/uL Sodium (137-145) mmol/L BUN (9-20) mg/dL Creatinine (0.66-1.25) mg/dL POC Glucose (mg/dL) 112 H (75-99) mg/dL Hemoglobin A1c 7.5 H (4.0-6.0) % Calcium (8.4-10.2) mg/dL Phosphorus (2.5-4.5) mg/dL Iron 7 L (65-175) ug/dL TIBC 148 L (228-460) ug/dL Iron Saturation 4.73 L (15.00-50.00) Ferritin 1736.7 H (22.0-322.0) ng/mL Troponin I (0.000-0.034) ng/mL 08/06/18 08/06/18 08/06/18 Range/Units 12:43 12:45 16:38 RBC (4.30-5.90) m/uL Hgb (13.0-17.5) gm/dL Hct (39.0-53.0) % MCHC (31.0-37.0) g/dL RDW (11.5-15.5) % Lymphocytes # (1.0-4.8) k/uL Sodium (137-145) mmol/L BUN (9-20) mg/dL Creatinine (0.66-1.25) mg/dL POC Glucose (mg/dL) 107 H 107 H (75-99) mg/dL Hemoglobin A1c (4.0-6.0) % Calcium (8.4-10.2) mg/dL Phosphorus (2.5-4.5) mg/dL Iron (65-175) ug/dL TIBC (228-460) ug/dL Iron Saturation (15.00-50.00) Ferritin (22.0-322.0) ng/mL Troponin I 0.079 H* (0.000-0.034) ng/mL 08/06/18 08/07/18 08/07/18 Range/Units 20:30 04:19 04:19 RBC 2.41 L (4.30-5.90) m/uL Hgb 6.4 L* (13.0-17.5) gm/dL Hct 21.4 L (39.0-53.0) % MCHC 30.1 L (31.0-37.0) g/dL RDW 19.3 H (11.5-15.5) % Lymphocytes # 0.4 L (1.0-4.8) k/uL Sodium 132 L (137-145) mmol/L BUN 26 H (9-20) mg/dL Creatinine 1.90 H (0.66-1.25) mg/dL POC Glucose (mg/dL) 120 H (75-99) mg/dL Hemoglobin A1c (4.0-6.0) % Calcium 7.8 L (8.4-10.2) mg/dL Phosphorus 2.2 L (2.5-4.5) mg/dL Iron (65-175) ug/dL TIBC (228-460) ug/dL Iron Saturation (15.00-50.00) Ferritin (22.0-322.0) ng/mL Troponin I (0.000-0.034) ng/mL 08/07/18 Range/Units 06:53 RBC (4.30-5.90) m/uL Hgb (13.0-17.5) gm/dL Hct (39.0-53.0) % MCHC (31.0-37.0) g/dL RDW (11.5-15.5) % Lymphocytes # (1.0-4.8) k/uL Sodium (137-145) mmol/L BUN (9-20) mg/dL Creatinine (0.66-1.25) mg/dL POC Glucose (mg/dL) 100 H (75-99) mg/dL Hemoglobin A1c (4.0-6.0) % Calcium (8.4-10.2) mg/dL Phosphorus (2.5-4.5) mg/dL Iron (65-175) ug/dL TIBC (228-460) ug/dL Iron Saturation (15.00-50.00) Ferritin (22.0-322.0) ng/mL Troponin I (0.000-0.034) ng/mL Assessment and Plan Plan: Assessment: 1. End-stage renal disease maintained on hemodialysis on a Saturday schedule. 2. Status post donor renal allograft in 2005 from [facility]. 3. Moderate pulmonary hypertension. 4. Systolic CHF with ejection fraction of 40-45 % with severe mitral regurgitation. 5. Chronic atrial fibrillation maintained on anticoagulation. 6. Constipation status post disimpaction in the ER. 7. Insulin-dependent diabetes mellitus. 8. Chronic kidney disease mineral bone disease. Phosphorus low at 2.2. 9. Anemia of chronic kidney disease. Hemoglobin 6.4 today. Iron deficiency noted. Maintained on Aranesp. 10. Hyponatremia secondary to chronic kidney disease. Plan: Hemodialysis tomorrow. Hold PhosLo. Maintain immunosuppression medications. Ferrlecit 125 mg IV 3 doses. 1 dose of IV DDAVP today. Transfuse 1 unit of blood today.
[2018-08-07] MEDS ORDERED: DESMOPRESSIN ACETATE 24 MCG in SODIUM CHLORIDE 0.9% 50 ML IVPB ONE (09:00)
[2018-08-07] MEDS: SODIUM FERRIC GLUCONAT-SUCROSE 125 MG in SODIUM CHLORIDE 0.9% 100 ML IVPB SCH (10:22)
[2018-08-07] MEDS ORDERED: LACTULOSE 20 GM/30 ML CUP PO ONE (10:26)
--- NOTE | 2018-08-07 11:27 | P.PN ---
Subjective Progress Note Date: 08/07/18 This is a 72-year-old male patient. Presented to the emergency room multiple vague complaints including constipation. Upon arrival to ER patient was found to be in CHF exacerbation with possible pneumonia. Patient does have a significant past medical history of end-stage renal disease in which she gets hemodialysis Saturday. Additional medical history includes liver and kidney transplant, asthma, heart failure, COPD, diabetes mellitus, hyperlipidemia, GERD, Hypertension, heart cath with stents, atrial fibrillation which she is on eliquis, non-Hodgkin's lymphoma in 2006 and seizures. Chest x- ray completed showing mild infiltrate in the right lung base compared to last exam. No heart failure. There is new small right pleural effusion. Due to patient's complaint of consultation abdominal x-ray completed in ER showing nonacute abdomen and some vascular calcification. EKG completed showing accelerated junctional rhythm. Troponin slightly elevated at 0.043 and 0.07. BNP elevated at 119,000. Cardiology, nephrology and critical care management has been consulted. Patient currently on vancomycin. Patient also briefly on levophed for pressure support but has since been DC'd due to improvement with blood pressure. Patient to get hemodialysis per nephrology today. Case discussed with nephrology Dr. Wong. Okay to resume home dose of Lasix 80 mg 3 times a day per nephrology. At this time patient denies any chest pain or shortness of breath. Patient denies nausea vomiting or diarrhea. Patient denies any urinary burning or frequency. Patient is currently on room air. On 08/07/2018 patient is alert and oriented resting comfortably. Patient's blood pressure has remained stable. Patient underwent hemodialysis yesterday. Patient's hemoglobin 6.4. Eliquis has been DC'd per cardiology. Occult stool ordered. Distribution is complaining of constipation. Will start Colace and give lactulose. Per nursing staff denies any signs of active bleeding at this time. This time patient denies chest pain or shortness of breath. Patient denies nausea vomiting or diarrhea. Patient denies any urinary burning or frequency Objective - Vital Signs Vital signs: Vital Signs Temp 97.7 F 08/07/18 08:00 Pulse 77 08/07/18 10:00 Resp 15 08/07/18 10:00 BP 123/65 08/07/18 10:00 Pulse Ox 94 L 08/07/18 10:00 Intake & Output 08/06/18 08/07/18 08/07/18 18:59 06:59 18:59 Intake Total 118.434 635 Output Total 0 50 0 Balance 118.434 585 0 Weight 80 kg 79.8 kg Intake: Intake, IV Titration 0.434 Amount Norepinephrine 16 mg In 0.434 Sodium Chloride 0.9% 250 ml @ Titrate IV .Q0M [facility] Rx#:[id number] Oral 118 635 Output: Urine 0 50 0 Other: Voiding Method Urinal Urinal - Exam Head normocephalic Neck supple Lungs diminished bilaterally with scattered rhonchi Heart irregular rate Abdomen is rounded soft nontender Extremities +1 lower extremity edema with ecchymosis to bilateral legs. Legs are currently wrapped in Kerlex - Labs CBC & Chem 7: 08/07/18 04:19 08/07/18 04:19 Labs: Abnormal Lab Results - Last 24 Hours (Table) 08/06/18 08/06/18 08/06/18 Range/Units 04:33 04:33 11:39 RBC (4.30-5.90) m/uL Hgb (13.0-17.5) gm/dL Hct (39.0-53.0) % MCHC (31.0-37.0) g/dL RDW (11.5-15.5) % Lymphocytes # (1.0-4.8) k/uL Sodium (137-145) mmol/L BUN (9-20) mg/dL Creatinine (0.66-1.25) mg/dL POC Glucose (mg/dL) 112 H (75-99) mg/dL Hemoglobin A1c 7.5 H (4.0-6.0) % Calcium (8.4-10.2) mg/dL Phosphorus (2.5-4.5) mg/dL Iron 7 L (65-175) ug/dL TIBC 148 L (228-460) ug/dL Iron Saturation 4.73 L (15.00-50.00) Ferritin 1736.7 H (22.0-322.0) ng/mL Troponin I (0.000-0.034) ng/mL Crossmatch 08/06/18 08/06/18 08/06/18 Range/Units 12:43 12:45 16:38 RBC (4.30-5.90) m/uL Hgb (13.0-17.5) gm/dL Hct (39.0-53.0) % MCHC (31.0-37.0) g/dL RDW (11.5-15.5) % Lymphocytes # (1.0-4.8) k/uL Sodium (137-145) mmol/L BUN (9-20) mg/dL Creatinine (0.66-1.25) mg/dL POC Glucose (mg/dL) 107 H 107 H (75-99) mg/dL Hemoglobin A1c (4.0-6.0) % Calcium (8.4-10.2) mg/dL Phosphorus (2.5-4.5) mg/dL Iron (65-175) ug/dL TIBC (228-460) ug/dL Iron Saturation (15.00-50.00) Ferritin (22.0-322.0) ng/mL Troponin I 0.079 H* (0.000-0.034) ng/mL Crossmatch 08/06/18 08/07/18 08/07/18 Range/Units 20:30 04:19 04:19 RBC 2.41 L (4.30-5.90) m/uL Hgb 6.4 L* (13.0-17.5) gm/dL Hct 21.4 L (39.0-53.0) % MCHC 30.1 L (31.0-37.0) g/dL RDW 19.3 H (11.5-15.5) % Lymphocytes # 0.4 L (1.0-4.8) k/uL Sodium 132 L (137-145) mmol/L BUN 26 H (9-20) mg/dL Creatinine 1.90 H (0.66-1.25) mg/dL POC Glucose (mg/dL) 120 H (75-99) mg/dL Hemoglobin A1c (4.0-6.0) % Calcium 7.8 L (8.4-10.2) mg/dL Phosphorus 2.2 L (2.5-4.5) mg/dL Iron (65-175) ug/dL TIBC (228-460) ug/dL Iron Saturation (15.00-50.00) Ferritin (22.0-322.0) ng/mL Troponin I (0.000-0.034) ng/mL Crossmatch 08/07/18 08/07/18 Range/Units 06:53 08:10 RBC (4.30-5.90) m/uL Hgb (13.0-17.5) gm/dL Hct (39.0-53.0) % MCHC (31.0-37.0) g/dL RDW (11.5-15.5) % Lymphocytes # (1.0-4.8) k/uL Sodium (137-145) mmol/L BUN (9-20) mg/dL Creatinine (0.66-1.25) mg/dL POC Glucose (mg/dL) 100 H (75-99) mg/dL Hemoglobin A1c (4.0-6.0) % Calcium (8.4-10.2) mg/dL Phosphorus (2.5-4.5) mg/dL Iron (65-175) ug/dL TIBC (228-460) ug/dL Iron Saturation (15.00-50.00) Ferritin (22.0-322.0) ng/mL Troponin I (0.000-0.034) ng/mL Crossmatch See Detail Assessment and Plan Assessment: 1. Abdominal distention and pain clearly related to constipation Abdominal x- ray completed in the ER showing nonacute abdomen. Extensive vascular calcification. Patient was disimpacted by ER physician. Pain is resolved 2. Rule out pneumonia. Chest x-ray completed showing new mild infiltrate at the right lung base compared to last exam. No heart failure. There is small right pleural effusion. Dr. James is following for pulmonary. Antibiotics have been DC'd at this time 3. Hypotension. Patient was briefly on Levophed. Blood pressure has improved. Home BP meds resumed parameters. Home dose of hydralazine DC'd due to marginal blood pressure 4. Elevated troponins. Initial troponin 0.043 0.086 Cardiology has been consulted. Per cardiology continue conservative medical management. Continue aspirin Metroprolol and statin at this time 5. End-stage renal disease. Patient receives hemodialysis Saturday. Patient reports he did receive his dialysis on Saturday. Nephrology services are following 6. Acute on chronic systolic congestive heart failure. BNP 119,[address] Wong per nephrology. Okay to resume patient's home Lasix dose per nephrology. 2-D echo completed showing an EF of 45-50% 7. History of coronary artery disease with stent placement 8. History of chronic proximal atrial fibrillation. Per cardiology eliquis has been DC'd due to low hemoglobin. 9. Diabetes mellitus. Home meds resumed plus sliding scale. Hemoglobin A1c has been ordered 10. Status post kidney transplant in 2011 11. Status post liver transplant 2005 12. Non-Hodgkin's lymphoma in 2006 13. History of hyperlipidemia 14. History of essential hypertension. Patient had episode of hypotension here. Blood pressure has significantly improved. Home meds resumed with parameters 15. Increased weakness. Will consult physical therapy and social work for possible ECF placement upon discharge 16. Anemia of chronic kidney disease. hemoglubin 6.4 today. Per nephrology patient will receive IV iron and 1 unit of PRBCs today. Occult stool has been ordered. No active signs of bleeding at this time DVT prophylaxis eliquis. GI prophylaxis Protonix
[2018-08-07] MEDS: MULTIVITAMINS, THERA 1 EACH TAB PO SCH (13:21)
[2018-08-07 13:25] LABS: Glucose,Whole Blood 148 mg/dL (75-99)
[2018-08-07 16:17] LABS: Glucose,Whole Blood 159 mg/dL (75-99)
--- NOTE | 2018-08-07 16:23 | CDI ---
Documentation Clarification Form Date: 08/07/2018 4:05:00 PM From: Amanda Mason RN, CCDS Admit Date: 08/05/2018 9:39:00 PM Patient Name: Chester Martins Visit Number: [id number] ATTENTION: The Clinical Documentation Specialists (CDI) and [facility] Coding Staff appreciate your assistance in clarifying documentation. Please respond to the clarification below the line at the bottom and electronically sign. The CDI & [facility] Coding staff will review the response and follow-up if needed. Please note: Queries are made part of the Legal Health Record. If you have any questions, please contact the author of this message via ITS. Dr. Jayla Mahmood Altered Mental Status was documented in the Pulmonary Consult and Progress Note with resolution. Please provide further specificity as to suspected condition causing mental status changes. History/Risk Factors: Asthma, CHF, COPD, DM, HTN, OA, Pneumonia, CRF, Seizure disorder, renal transplant Clinical Indicators: 08/07 Pulmonary Progress note: "He had some mental status changes, which actually had improved by the time he came up to the ICU. Mental status changes, resolved, may relate to metabolic circumstances such as end- stage renal disease." Labs: Hgb 9.1/7.1/6.4, neutrophils 10.1/8.8, bun 36/29, creatinine 2.33/2.37/1.9 , TIBC 148, iron sat 4.73, ferritin 1736.7 08/06 CXR:"Left lower lobe infiltrate. Pneumonia is favored." Treatment: IV Unasyn x 1 dose, IV Ceftriaxone x 1 dose, Levaquin 750 mg IVPB x 1 dose, IV Vanco x 1 dose Desmoressin drip Levophed Drip 750 cc IVf Bolus In your professional opinion, please clarify the etiology of the Altered Mental Status, if known. Encephalopathy (specify Type- Metabolic, Toxic, Etc... and Underlying Medical Illness) Other condition (please specify) Unable to determine (Last Revision: October 2017) Unable to determine MTDD
[2018-08-07] MEDS: HYDROcodone/APAP 10-325MG 1 EACH TAB PO PRN (18:16)
[2018-08-07 21:02] LABS: Glucose,Whole Blood 109 mg/dL (75-99)
[2018-08-07] MEDS: DOCUSATE 100 MG CAP PO SCH (22:31)
[2018-08-08] MEDS: HYDROcodone/APAP 10-325MG 1 EACH TAB PO PRN ×2 (01:36→23:46)
[2018-08-08 06:10] LABS: Glucose,Whole Blood 90 mg/dL (75-99)
[2018-08-08] MEDS: INSULIN ASPART (NovoLOG) 100 UNIT/ML VIAL SQ SCH ×4 (06:13→21:09)
[2018-08-08] MEDS: INSULN ASP PRT/INSULIN ASPART 100 UNIT/ML 10 ML VIAL SQ SCH ×2 (06:27→18:03)
[2018-08-08 07:26] LABS: Anisocytosis Slight; Basophils % (A) 0 %; Eosinophils % (A) 0 %; HCT 24.6 % (39.0-53.0); HGB 7.2 gm/dL (13.0-17.5); Hypochromasia Marked; Lymphocytes # (A) 0.4 k/uL (1.0-4.8); Lymphocytes % (A) 5 %; MCH 25.4 pg (25.0-35.0); MCHC 29.2 g/dL (31.0-37.0); MCV 86.7 fL (80.0-100.0); Monocytes # (A) 0.3 k/uL (0-1.0); Monocytes % (A) 3 %; Neutrophils # (A) 7.7 k/uL (1.3-7.7); Neutrophils % (A) 91 %; Platelet Count 291 k/uL (150-450); Poikilocytosis Moderate; RBC 2.83 m/uL (4.30-5.90); RDW 18.6 % (11.5-15.5); WBC 8.5 k/uL (3.8-10.6)
[2018-08-08 07:37] LABS: Calcium 8.1 mg/dL (8.4-10.2); Magnesium 2.2 mg/dL (1.6-2.3); Phosphorus 3.1 mg/dL (2.5-4.5); Potassium 4.3 mmol/L (3.5-5.1)
--- NOTE | 2018-08-08 08:10 | P.PN ---
Subjective Progress Note Date: 08/08/18 Principal diagnosis: STEMI This is a pleasant 72-year-old gentleman who sees Dr. EDDIE Nava in the office on regular basis with a past medical history significant for coronary artery disease and the patient underwent stent placement about 8 years ago, the details on that are unavailable at this point, known cardiomyopathy based on an echocardiogram was performed in 2017 showing an ejection fraction of 35%, end stage renal disease on hemodialysis, chronic persistent atrial fibrillation maintaining on oral anticoagulation with Eliquis, as well as multiple comorbid conditions, presented to the hospital he goes of constipation. The patient was constipated for about a week. In the emergency room he did undergo disimpaction. His symptoms has improved. He was experiencing abdominal discomfort with the constipation. No nausea or vomiting. No fever or chills. No symptoms of chest pain or chest discomfort, difficulty breathing , feeling of heart racing or fluttering, dizziness or lightheadedness, or syncope. The abdominal x-ray did not show any acute abdomen. The chest x-ray showed mild pulmonary vascular congestions. The EKG showed atrial fibrillation with left anterior fascicular block. No ischemic ST or T-wave abnormalities noted. The troponin came in to be slightly elevated and below 1. The BNP is 11,000. The hemoglobin came down to 7.1. The rest of the blood work came in to be unremarkable aside creatinine which was elevated but the patient is known to be on dialysis. We get involved in the care of the patient for abnormal cardiac enzymes. The patient did not experience any symptoms of chest pain or chest discomfort. The troponin is a slightly elevated which is likely related to the chronic kidney disease. Beside that the EKG did not show any significant or ischemic ST or T- wave abnormalities concerning for ischemia. The echo showed mildly impaired LV function with mild aortic stenosis and moderate pulmonary hypertension. On follow-up with the patient today, August 082018, the patient is asymptomatic from the cardiac standpoint overview. No chest pain or discomfort. He dropped his hemoglobin last night to about 6 and received one unit of packed RBC. This morning the hemoglobin is 7.2. The Eliquis was stopped yesterday. Objective - Vital Signs Vital signs: Vital Signs Temp 99 F 08/08/18 04:00 Pulse 84 08/08/18 04:00 Resp 18 08/08/18 04:00 BP 117/62 08/08/18 04:00 Pulse Ox 93 L 08/08/18 04:00 Intake & Output 08/07/18 08/08/18 08/08/18 18:59 06:59 18:59 Intake Total 963 240 Output Total 0 Balance 963 240 Weight 80.5 kg Intake: Intake, IV Titration 175 Amount Desmopressin Acetate 24 50 mcg In Sodium Chloride 0. 9% 50 ml @ 200 mls/hr IVPB ONCE ONE Rx#: [id number] Sodium Ferric Gluconat- 125 Sucrose 125 mg In Sodium Chloride 0.9% 100 ml @ 100 mls/hr IVPB DAILY [facility] Rx#:[id number] Oral 168 240 Blood Product 620 Rc As-3 Unit 310 [id number] Output: Urine 0 Other: Voiding Method Urinal Urinal - Constitutional General appearance: Present: no acute distress - Respiratory Respiratory: bilateral: diminished - Cardiovascular Rhythm: irregularly irregular Heart sounds: normal: S1, S2 Abnormal Heart Sounds: Present: systolic murmur - Labs CBC & Chem 7: 08/08/18 06:29 08/08/18 06:29 Labs: Abnormal Lab Results - Last 24 Hours (Table) 08/07/18 08/07/18 08/07/18 Range/Units 08:10 13:24 16:10 RBC (4.30-5.90) m/uL Hgb (13.0-17.5) gm/dL Hct (39.0-53.0) % MCHC (31.0-37.0) g/dL RDW (11.5-15.5) % Lymphocytes # (1.0-4.8) k/uL Sodium (137-145) mmol/L BUN (9-20) mg/dL Creatinine (0.66-1.25) mg/dL POC Glucose (mg/dL) 148 H 159 H (75-99) mg/dL Calcium (8.4-10.2) mg/dL Crossmatch See Detail 08/07/18 08/08/18 08/08/18 Range/Units 21:01 06:29 06:29 RBC 2.83 L (4.30-5.90) m/uL Hgb 7.2 L (13.0-17.5) gm/dL Hct 24.6 L (39.0-53.0) % MCHC 29.2 L (31.0-37.0) g/dL RDW 18.6 H (11.5-15.5) % Lymphocytes # 0.4 L (1.0-4.8) k/uL Sodium 134 L (137-145) mmol/L BUN 35 H (9-20) mg/dL Creatinine 2.54 H (0.66-1.25) mg/dL POC Glucose (mg/dL) 109 H (75-99) mg/dL Calcium 8.1 L (8.4-10.2) mg/dL Crossmatch Assessment and Plan Assessment: Assessment #1 severe constipation. The patient did undergo disimpaction. He is feeling better. #2 mildly abnormal cardiac enzymes which is likely related to chronic kidney disease. #3 mild congestive heart failure exacerbation secondary to systolic dysfunction. #4 coronary artery disease and prior angioplasty and stenting. The details are unknown. #5 end stage disease on hemodialysis #6 chronic anemia Plan #1 conservative medical approach regarding the abnormal cardiac enzymes in view of the absence of chest pain and chest discomfort. #2 continue aspirin, metoprolol, and statin #3 the oral anticoagulation with Eliquis was stopped yesterday #4 continue monitoring the hemoglobin. Thank you for allowing us participate in his care and we will continue following up with him
[2018-08-08] MEDS: SODIUM FERRIC GLUCONAT-SUCROSE 125 MG in SODIUM CHLORIDE 0.9% 100 ML IVPB SCH (08:56)
--- NOTE | 2018-08-08 09:03 | P.PN ---
Subjective Patient is seen in follow-up for end-stage renal disease. He is maintained on hemodialysis on a Saturday schedule. Hemoglobin was 6.4 yesterday for which he received 1 unit of blood transfusion. Hemoglobin 7.2 today. No active bleeding. Hemodynamically stable. Echocardiogram revealed ejection fraction of 45-50% with severe mitral regurgitation and moderate pulmonary hypertension. Vital signs are stable. General: The patient appeared well nourished and normally developed. HEENT: Head exam is unremarkable. Neck is without jugular venous distension. LUNGS: Lungs are clear to auscultation and percussion. Breath sounds decreased. HEART: Rate and Rhythm are regular. First and second heart sounds normal. No murmurs, rubs or gallops. ABDOMEN: Abdominal exam reveals normal bowel sounds. Non-tender and non- distended. No evidence of peritonitis. EXTREMITITES: Trace edema. Wrapped. No obvious drainage. Objective - Vital Signs Vital signs: Vital Signs Temp 98 F 08/08/18 08:30 Pulse 87 08/08/18 08:30 Resp 20 08/08/18 08:30 BP 111/59 08/08/18 08:30 Pulse Ox 100 08/08/18 08:30 Intake & Output 08/07/18 08/08/18 08/08/18 18:59 06:59 18:59 Intake Total 963 240 240 Output Total 0 Balance 963 240 240 Weight 80.5 kg Intake: Intake, IV Titration 175 Amount Desmopressin Acetate 24 50 mcg In Sodium Chloride 0. 9% 50 ml @ 200 mls/hr IVPB ONCE ONE Rx#: [id number] Sodium Ferric Gluconat- 125 Sucrose 125 mg In Sodium Chloride 0.9% 100 ml @ 100 mls/hr IVPB DAILY [facility] Rx#:[id number] Oral 168 240 240 Blood Product 620 Rc As-3 Unit 310 [id number] Output: Urine 0 Other: Voiding Method Urinal Urinal - Labs CBC & Chem 7: 08/08/18 06:29 08/08/18 06:29 Labs: Abnormal Lab Results - Last 24 Hours (Table) 08/07/18 08/07/18 08/07/18 Range/Units 08:10 13:24 16:10 RBC (4.30-5.90) m/uL Hgb (13.0-17.5) gm/dL Hct (39.0-53.0) % MCHC (31.0-37.0) g/dL RDW (11.5-15.5) % Lymphocytes # (1.0-4.8) k/uL Sodium (137-145) mmol/L BUN (9-20) mg/dL Creatinine (0.66-1.25) mg/dL POC Glucose (mg/dL) 148 H 159 H (75-99) mg/dL Calcium (8.4-10.2) mg/dL Crossmatch See Detail 08/07/18 08/08/18 08/08/18 Range/Units 21:01 06:29 06:29 RBC 2.83 L (4.30-5.90) m/uL Hgb 7.2 L (13.0-17.5) gm/dL Hct 24.6 L (39.0-53.0) % MCHC 29.2 L (31.0-37.0) g/dL RDW 18.6 H (11.5-15.5) % Lymphocytes # 0.4 L (1.0-4.8) k/uL Sodium 134 L (137-145) mmol/L BUN 35 H (9-20) mg/dL Creatinine 2.54 H (0.66-1.25) mg/dL POC Glucose (mg/dL) 109 H (75-99) mg/dL Calcium 8.1 L (8.4-10.2) mg/dL Crossmatch Assessment and Plan Plan: Assessment: 1. End-stage renal disease maintained on hemodialysis on a Saturday schedule. 2. Status post donor renal allograft in 2005 from [facility]. 3. Moderate pulmonary hypertension. 4. Systolic CHF with ejection fraction of 40-45 % with severe mitral regurgitation. 5. Chronic atrial fibrillation maintained on anticoagulation. 6. Constipation status post disimpaction in the ER. 7. Insulin-dependent diabetes mellitus. 8. Chronic kidney disease mineral bone disease. Phosphorus low at 2.2 on admission and is 3.1 today. 9. Anemia of chronic kidney disease. Status post blood transfusion yesterday. Iron deficiency noted. Maintained on Aranesp. 10. Hyponatremia secondary to chronic kidney disease. Plan: Hemodialysis today. Hold PhosLo. Maintain immunosuppression medications. Ferrlecit 125 mg IV 3 doses. Second dose today.
--- NOTE | 2018-08-08 09:41 | P.PN ---
Subjective Progress Note Date: 08/08/18 This is a 72-year-old male patient. Presented to the emergency room multiple vague complaints including constipation. Upon arrival to ER patient was found to be in CHF exacerbation with possible pneumonia. Patient does have a significant past medical history of end-stage renal disease in which she gets hemodialysis Saturday. Additional medical history includes liver and kidney transplant, asthma, heart failure, COPD, diabetes mellitus, hyperlipidemia, GERD, Hypertension, heart cath with stents, atrial fibrillation which she is on eliquis, non-Hodgkin's lymphoma in 2006 and seizures. Chest x- ray completed showing mild infiltrate in the right lung base compared to last exam. No heart failure. There is new small right pleural effusion. Due to patient's complaint of consultation abdominal x-ray completed in ER showing nonacute abdomen and some vascular calcification. EKG completed showing accelerated junctional rhythm. Troponin slightly elevated at 0.043 and 0.07. BNP elevated at 119,000. Cardiology, nephrology and critical care management has been consulted. Patient currently on vancomycin. Patient also briefly on levophed for pressure support but has since been DC'd due to improvement with blood pressure. Patient to get hemodialysis per nephrology today. Case discussed with nephrology Dr. Wong. Okay to resume home dose of Lasix 80 mg 3 times a day per nephrology. At this time patient denies any chest pain or shortness of breath. Patient denies nausea vomiting or diarrhea. Patient denies any urinary burning or frequency. Patient is currently on room air. On 08/07/2018 patient is alert and oriented resting comfortably. Patient's blood pressure has remained stable. Patient underwent hemodialysis yesterday. Patient's hemoglobin 6.4. Eliquis has been DC'd per cardiology. Occult stool ordered. Distribution is complaining of constipation. Will start Colace and give lactulose. Per nursing staff denies any signs of active bleeding at this time. This time patient denies chest pain or shortness of breath. Patient denies nausea vomiting or diarrhea. Patient denies any urinary burning or frequency On 08/08/2018 patient currently sitting up in chair alert and oriented. Patient reports he currently feels much improved. Patient reports he still has not had a bowel movement. Patient did undergo hemodialysis yesterday and received 1 unit of PRBCs. Hemoglobin up to 7.2. Eliquis remains on hold per cardiology. Per nursing staff denies any signs of active bleeding. Patient denies chest pain or shortness breath. Patient denies nausea vomiting or diarrhea. Patient denies any urinary burning or frequency Objective - Vital Signs Vital signs: Vital Signs Temp 98 F 08/08/18 08:30 Pulse 87 08/08/18 08:30 Resp 20 08/08/18 08:30 BP 111/59 08/08/18 08:30 Pulse Ox 100 08/08/18 08:30 Intake & Output 08/07/18 08/08/18 08/08/18 18:59 06:59 18:59 Intake Total 963 240 240 Output Total 0 Balance 963 240 240 Weight 80.5 kg Intake: Intake, IV Titration 175 Amount Desmopressin Acetate 24 50 mcg In Sodium Chloride 0. 9% 50 ml @ 200 mls/hr IVPB ONCE ONE Rx#: [id number] Sodium Ferric Gluconat- 125 Sucrose 125 mg In Sodium Chloride 0.9% 100 ml @ 100 mls/hr IVPB DAILY [facility] Rx#:[id number] Oral 168 240 240 Blood Product 620 Rc As-3 Unit 310 [id number] Output: Urine 0 Other: Voiding Method Urinal Urinal - Exam Head normocephalic Neck supple Lungs diminished bilaterally with scattered rhonchi Heart irregular rate Abdomen is rounded soft nontender Extremities +1 lower extremity edema with ecchymosis to bilateral legs. Legs are currently wrapped in Kerlex - Labs CBC & Chem 7: 08/08/18 06:29 08/08/18 06:29 Labs: Abnormal Lab Results - Last 24 Hours (Table) 08/07/18 08/07/18 08/07/18 Range/Units 08:10 13:24 16:10 RBC (4.30-5.90) m/uL Hgb (13.0-17.5) gm/dL Hct (39.0-53.0) % MCHC (31.0-37.0) g/dL RDW (11.5-15.5) % Lymphocytes # (1.0-4.8) k/uL Sodium (137-145) mmol/L BUN (9-20) mg/dL Creatinine (0.66-1.25) mg/dL POC Glucose (mg/dL) 148 H 159 H (75-99) mg/dL Calcium (8.4-10.2) mg/dL Crossmatch See Detail 08/07/18 08/08/18 08/08/18 Range/Units 21:01 06:29 06:29 RBC 2.83 L (4.30-5.90) m/uL Hgb 7.2 L (13.0-17.5) gm/dL Hct 24.6 L (39.0-53.0) % MCHC 29.2 L (31.0-37.0) g/dL RDW 18.6 H (11.5-15.5) % Lymphocytes # 0.4 L (1.0-4.8) k/uL Sodium 134 L (137-145) mmol/L BUN 35 H (9-20) mg/dL Creatinine 2.54 H (0.66-1.25) mg/dL POC Glucose (mg/dL) 109 H (75-99) mg/dL Calcium 8.1 L (8.4-10.2) mg/dL Crossmatch Assessment and Plan Assessment: 1. Abdominal distention and pain clearly related to constipation Abdominal x- ray completed in the ER showing nonacute abdomen. Extensive vascular calcification. Patient was disimpacted by ER physician. Patient having episodes constipation. Patient started on Colace. Will give additional dose of lactulose to 2. Rule out pneumonia. Chest x-ray completed showing new mild infiltrate at the right lung base compared to last exam. No heart failure. There is small right pleural effusion. Dr. James is following for pulmonary. Antibiotics have been DC'd at this time 3. Hypotension. Patient was briefly on Levophed. Blood pressure has improved. Home BP meds resumed parameters. Home dose of hydralazine DC'd due to marginal blood pressure 4. Elevated troponins. Initial troponin 0.043 0.086 Cardiology has been consulted. Per cardiology continue conservative medical management. Continue aspirin Metroprolol and statin at this time 5. End-stage renal disease. Patient receives hemodialysis Saturday. Patient reports he did receive his dialysis on Saturday. Nephrology services are following 6. Acute on chronic systolic congestive heart failure. BNP 119,[address] Wong per nephrology. Okay to resume patient's home Lasix dose per nephrology. 2-D echo completed showing an EF of 45-50% 7. History of coronary artery disease with stent placement 8. History of chronic proximal atrial fibrillation. Per cardiology eliquis has been DC'd due to low hemoglobin. 9. Diabetes mellitus. Home meds resumed plus sliding scale. Hemoglobin A1c has been ordered 10. Status post kidney transplant in 2011 11. Status post liver transplant 2005 12. Non-Hodgkin's lymphoma in 2006 13. History of hyperlipidemia 14. History of essential hypertension. Patient had episode of hypotension here. Blood pressure has significantly improved. Home meds resumed with parameters 15. Increased weakness. Will consult physical therapy and social work for possible ECF placement upon discharge 16. Anemia of chronic kidney disease. hemoglubin 6.4 today. Per nephrology patient will receive IV iron and 1 unit of PRBCs today. Occult stool has been ordered. No active signs of bleeding at this time. Globin improving to 7.2. Patient will be given additional doses of IV iron per nephrology DVT prophylaxis SCDs, eliquis on hold due to anemia. GI prophylaxis Protonix I performed an examination of the patient and discussed their management with the Nurse Practitioner. I have reviewed the Nurse Practitioner's notes and agree with the documented findings and plan of care
[2018-08-08] MEDS: ASPIRIN 81 MG PO SCH (09:44)
[2018-08-08] MEDS: DOCUSATE 100 MG CAP PO SCH ×2 (09:44→21:09)
[2018-08-08] MEDS: ALLOPURINOL 100 MG TAB PO SCH (09:44)
[2018-08-08] MEDS: PANTOPRAZOLE 40 MG TABLET PO SCH (09:44)
[2018-08-08] MEDS: CHOLECALCIFEROL 1,000 UNIT TAB PO SCH (09:44)
[2018-08-08] MEDS: ATORVASTATIN 20 MG TAB PO SCH (09:44)
[2018-08-08] MEDS ORDERED: LACTULOSE 20 GM/30 ML CUP PO ONE (09:45)
[2018-08-08] MEDS: TACROLIMUS 1 MG CAP PO SCH ×2 (09:47→21:10)
[2018-08-08] MEDS: predniSONE 2.5 MG TAB PO SCH ×2 (09:47→21:10)
[2018-08-08] MEDS: MYCOPHENOLATE MOFETIL 250 MG CAP PO SCH ×2 (09:48→21:11)
[2018-08-08] MEDS: MAGNESIUM OXIDE 400 MG TAB PO SCH ×2 (10:34→21:09)
[2018-08-08 11:22] LABS: Glucose,Whole Blood 144 mg/dL (75-99)
[2018-08-08] MEDS: MULTIVITAMINS, THERA 1 EACH TAB PO SCH (12:56)
[2018-08-08] MEDS ORDERED: NA PHOS,M-B/NA PHOS,DI-BA 133 ML ENEMA RECTAL ONE (14:01)
--- NOTE | 2018-08-08 15:38 | US ---
EXAMINATION TYPE: US venous doppler duplex LE DATE OF EXAM: 08/08/2018 2:59 PM COMPARISON: US 2014 CLINICAL HISTORY: r/o DVT. Bilateral leg edema, on renal dialysis SIDE PERFORMED: bilateral TECHNIQUE: The lower extremity deep venous system is examined utilizing real time linear array sonog shaylee with graded compression, Doppler sonography and color-flow sonography. VESSELS IMAGED: Common Femoral Vein Deep Femoral Vein Greater Saphenous Vein * Femoral Vein Popliteal Vein Small Saphenous Vein * Proximal Calf Veins (* superficial vessels) Right Leg: Negative for DVT Left Leg: Negative for DVT. Thickened venous valves are noted at left Femoral Vein. Grayscale, color doppler, spectral doppler imaging performed of the deep veins of the bilateral lower extremities. There is normal flow, compressibility, vascular waveforms. IMPRESSION: No ultrasound evidence for acute DVT in either lower extremity. Severe diffuse subcutane ous edema is seen on images saved bilaterally beginning popliteal region extending into the periphery of the lower extremities.
[2018-08-08 16:27] LABS: Glucose,Whole Blood 122 mg/dL (75-99)
[2018-08-08] MEDS: FUROSEMIDE 80 MG TAB PO SCH ×3 (17:39→21:10)
[2018-08-08] MEDS: METOPROLOL TARTRATE 50 MG TAB PO SCH ×2 (17:39→21:10)
[2018-08-08] MEDS: HEPARIN SODIUM,PORCINE 5,000 UNIT/ML 1 ML VIAL SQ SCH (21:09)
[2018-08-08 21:35] LABS: Glucose,Whole Blood 84 mg/dL (75-99)
[2018-08-09 06:29] LABS: Glucose,Whole Blood 64 mg/dL (75-99)
[2018-08-09] MEDS: INSULN ASP PRT/INSULIN ASPART 100 UNIT/ML 10 ML VIAL SQ SCH ×2 (06:34→17:21)
[2018-08-09] MEDS: INSULIN ASPART (NovoLOG) 100 UNIT/ML VIAL SQ SCH ×4 (06:34→20:37)
[2018-08-09 07:00] LABS: Glucose,Whole Blood 60 mg/dL (75-99)
[2018-08-09 07:42] LABS: Glucose,Whole Blood 78 mg/dL (75-99)
[2018-08-09 08:36] LABS: Anisocytosis Slight; Basophils % (A) 0 %; Eosinophils % (A) 1 %; HCT 24.4 % (39.0-53.0); HGB 7.7 gm/dL (13.0-17.5); Hypochromasia Marked; Lymphocytes # (A) 0.4 k/uL (1.0-4.8); Lymphocytes % (A) 5 %; MCHC 31.6 g/dL (31.0-37.0); MCV 85.6 fL (80.0-100.0); Mean Platelet Volume 6.4; Monocytes # (A) 0.4 k/uL (0-1.0); Monocytes % (A) 5 %; Neutrophils # (A) 6.8 k/uL (1.3-7.7); Neutrophils % (A) 88 %; Platelet Count 282 k/uL (150-450); Poikilocytosis Moderate; RBC 2.85 m/uL (4.30-5.90); RDW 18.4 % (11.5-15.5); WBC 7.7 k/uL (3.8-10.6)
[2018-08-09 08:39] LABS: Calcium 8.1 mg/dL (8.4-10.2); Magnesium 2.2 mg/dL (1.6-2.3); Phosphorus 2.8 mg/dL (2.5-4.5); Potassium 4.1 mmol/L (3.5-5.1)
[2018-08-09] MEDS: ALLOPURINOL 100 MG TAB PO SCH (09:04)
[2018-08-09] MEDS: METOPROLOL TARTRATE 50 MG TAB PO SCH ×2 (09:04→20:54)
[2018-08-09] MEDS: MAGNESIUM OXIDE 400 MG TAB PO SCH ×2 (09:05→20:54)
[2018-08-09] MEDS: PANTOPRAZOLE 40 MG TABLET PO SCH (09:05)
[2018-08-09] MEDS: DOCUSATE 100 MG CAP PO SCH ×2 (09:05→20:54)
[2018-08-09] MEDS: MULTIVITAMINS, THERA 1 EACH TAB PO SCH (09:05)
[2018-08-09] MEDS: ATORVASTATIN 20 MG TAB PO SCH (09:05)
[2018-08-09] MEDS: CHOLECALCIFEROL 1,000 UNIT TAB PO SCH (09:05)
[2018-08-09] MEDS: ASPIRIN 81 MG PO SCH (09:05)
[2018-08-09] MEDS: FUROSEMIDE 80 MG TAB PO SCH ×3 (09:05→20:55)
[2018-08-09] MEDS: HEPARIN SODIUM,PORCINE 5,000 UNIT/ML 1 ML VIAL SQ SCH ×2 (09:05→20:54)
[2018-08-09] MEDS: SODIUM FERRIC GLUCONAT-SUCROSE 125 MG in SODIUM CHLORIDE 0.9% 100 ML IVPB SCH (09:10)
[2018-08-09] MEDS: HYDROcodone/APAP 10-325MG 1 EACH TAB PO PRN ×2 (09:16→20:55)
[2018-08-09] MEDS: MYCOPHENOLATE MOFETIL 250 MG CAP PO SCH ×2 (09:17→20:55)
[2018-08-09] MEDS: TACROLIMUS 1 MG CAP PO SCH ×2 (09:17→20:55)
[2018-08-09] MEDS: predniSONE 2.5 MG TAB PO SCH ×2 (09:17→20:55)
--- NOTE | 2018-08-09 11:41 | P.PN ---
Subjective Progress Note Date: 08/09/18 Seen and examined for the follow-up of ESRD. Sitting comfortably in the chair. No acute distress. No nausea vomiting diarrhea. Had dialysis on Saturday. Objective - Vital Signs Vital signs: Vital Signs Temp 97.7 F 08/09/18 03:45 Pulse 85 08/09/18 03:45 Resp 17 08/09/18 03:45 BP 139/61 08/09/18 03:45 Pulse Ox 99 08/09/18 03:45 Intake & Output 08/08/18 08/09/18 08/09/18 18:59 06:59 18:59 Intake Total 340 Output Total 3100 10 Balance -2760 -10 Weight 80.5 kg 79.5 kg Intake: Oral 340 Output: Urine 600 Stool 10 Other 2500 Other: Voiding Method Urinal Urinal Diaper # Bowel Movements 1 - Exam No acute distress S1-S2 heard Right jugular permacath No edema - Labs CBC & Chem 7: 08/09/18 06:45 08/09/18 06:45 Labs: Abnormal Lab Results - Last 24 Hours (Table) 08/08/18 08/09/18 08/09/18 Range/Units 16:26 06:27 06:45 RBC 2.85 L (4.30-5.90) m/uL Hgb 7.7 L (13.0-17.5) gm/dL Hct 24.4 L (39.0-53.0) % RDW 18.4 H (11.5-15.5) % Lymphocytes # 0.4 L (1.0-4.8) k/uL Sodium (137-145) mmol/L BUN (9-20) mg/dL Creatinine (0.66-1.25) mg/dL Glucose (74-99) mg/dL POC Glucose (mg/dL) 122 H 64 L (75-99) mg/dL Calcium (8.4-10.2) mg/dL 08/09/18 08/09/18 Range/Units 06:45 06:50 RBC (4.30-5.90) m/uL Hgb (13.0-17.5) gm/dL Hct (39.0-53.0) % RDW (11.5-15.5) % Lymphocytes # (1.0-4.8) k/uL Sodium 135 L (137-145) mmol/L BUN 27 H (9-20) mg/dL Creatinine 1.90 H (0.66-1.25) mg/dL Glucose 54 L (74-99) mg/dL POC Glucose (mg/dL) 60 L (75-99) mg/dL Calcium 8.1 L (8.4-10.2) mg/dL Assessment and Plan Assessment: #1 end-stage renal disease MWF #2 status post DDA [address] [facility] #3 systolic CHF with EF of 40% with pulmonary hypertension #4 atrial fibrillation on 90 copulation #5 anemia with chronic kidney disease #6 hypertension with chronic kidney disease Plan: #1 plan hemodialysis Saturday #2 IV iron and MANUEL #3 maintain immunosuppressive medications #4 supportive care
[2018-08-09 11:57] LABS: Glucose,Whole Blood 166 mg/dL (75-99)
--- NOTE | 2018-08-09 14:48 | P.PN ---
Subjective Progress Note Date: 08/09/18 This is a 72-year-old male patient. Presented to the emergency room multiple vague complaints including constipation. Upon arrival to ER patient was found to be in CHF exacerbation with possible pneumonia. Patient does have a significant past medical history of end-stage renal disease in which she gets hemodialysis Saturday. Additional medical history includes liver and kidney transplant, asthma, heart failure, COPD, diabetes mellitus, hyperlipidemia, GERD, Hypertension, heart cath with stents, atrial fibrillation which she is on eliquis, non-Hodgkin's lymphoma in 2006 and seizures. Chest x- ray completed showing mild infiltrate in the right lung base compared to last exam. No heart failure. There is new small right pleural effusion. Due to patient's complaint of consultation abdominal x-ray completed in ER showing nonacute abdomen and some vascular calcification. EKG completed showing accelerated junctional rhythm. Troponin slightly elevated at 0.043 and 0.07. BNP elevated at 119,000. Cardiology, nephrology and critical care management has been consulted. Patient currently on vancomycin. Patient also briefly on levophed for pressure support but has since been DC'd due to improvement with blood pressure. Patient to get hemodialysis per nephrology today. Case discussed with nephrology Dr. Wong. Okay to resume home dose of Lasix 80 mg 3 times a day per nephrology. At this time patient denies any chest pain or shortness of breath. Patient denies nausea vomiting or diarrhea. Patient denies any urinary burning or frequency. Patient is currently on room air. On 08/07/2018 patient is alert and oriented resting comfortably. Patient's blood pressure has remained stable. Patient underwent hemodialysis yesterday. Patient's hemoglobin 6.4. Eliquis has been DC'd per cardiology. Occult stool ordered. Distribution is complaining of constipation. Will start Colace and give lactulose. Per nursing staff denies any signs of active bleeding at this time. This time patient denies chest pain or shortness of breath. Patient denies nausea vomiting or diarrhea. Patient denies any urinary burning or frequency On 08/08/2018 patient currently sitting up in chair alert and oriented. Patient reports he currently feels much improved. Patient reports he still has not had a bowel movement. Patient did undergo hemodialysis yesterday and received 1 unit of PRBCs. Hemoglobin up to 7.2. Eliquis remains on hold per cardiology. Per nursing staff denies any signs of active bleeding. Patient denies chest pain or shortness breath. Patient denies nausea vomiting or diarrhea. Patient denies any urinary burning or frequency On 08/09/2018 patient is alert and oriented 3 in no apparent distress he is sitting up in a chair, he had a bowel movement yesterday he is eating his meal, he denies any chest pain or shortness of breath no nausea or vomiting no abdominal pain and no urinary symptoms Objective - Vital Signs Vital signs: Vital Signs Temp 97.5 F L 08/09/18 12:00 Pulse 92 08/09/18 12:00 Resp 14 08/09/18 12:00 BP 122/70 08/09/18 12:00 Pulse Ox 100 08/09/18 12:00 Intake & Output 08/08/18 08/09/18 08/09/18 18:59 06:59 18:59 Intake Total 340 580 Output Total 3100 10 Balance -2760 -10 580 Weight 80.5 kg 79.5 kg Intake: Intake, IV Titration 100 Amount Sodium Ferric Gluconat- 100 Sucrose 125 mg In Sodium Chloride 0.9% 100 ml @ 100 mls/hr IVPB DAILY [facility] Rx#:[id number] Oral 340 480 Output: Urine 600 Stool 10 Other 2500 Other: Voiding Method Urinal Urinal Urinal Diaper Diaper # Bowel Movements 1 - Exam Head normocephalic Neck supple Lungs diminished bilaterally with scattered rhonchi Heart irregular rate Abdomen is rounded soft nontender Extremities +1 lower extremity edema with ecchymosis to bilateral legs. Legs are currently wrapped in Kerlex - Labs CBC & Chem 7: 08/09/18 06:45 08/09/18 06:45 Labs: Abnormal Lab Results - Last 24 Hours (Table) 08/08/18 08/09/18 08/09/18 Range/Units 16:26 06:27 06:45 RBC 2.85 L (4.30-5.90) m/uL Hgb 7.7 L (13.0-17.5) gm/dL Hct 24.4 L (39.0-53.0) % RDW 18.4 H (11.5-15.5) % Lymphocytes # 0.4 L (1.0-4.8) k/uL Sodium (137-145) mmol/L BUN (9-20) mg/dL Creatinine (0.66-1.25) mg/dL Glucose (74-99) mg/dL POC Glucose (mg/dL) 122 H 64 L (75-99) mg/dL Calcium (8.4-10.2) mg/dL 08/09/18 08/09/18 08/09/18 Range/Units 06:45 06:50 11:37 RBC (4.30-5.90) m/uL Hgb (13.0-17.5) gm/dL Hct (39.0-53.0) % RDW (11.5-15.5) % Lymphocytes # (1.0-4.8) k/uL Sodium 135 L (137-145) mmol/L BUN 27 H (9-20) mg/dL Creatinine 1.90 H (0.66-1.25) mg/dL Glucose 54 L (74-99) mg/dL POC Glucose (mg/dL) 60 L 166 H (75-99) mg/dL Calcium 8.1 L (8.4-10.2) mg/dL Assessment and Plan Plan: 1. Abdominal distention and pain clearly related to constipation Abdominal x- ray completed in the ER showing nonacute abdomen. Extensive vascular calcification. Patient was disimpacted by ER physician. Patient having episodes constipation. Patient started on Colace. Will give additional dose of lactulose to 2. Rule out pneumonia. Chest x-ray completed showing new mild infiltrate at the right lung base compared to last exam. No heart failure. There is small right pleural effusion. Dr. James is following for pulmonary. Antibiotics have been DC'd at this time 3. Hypotension. Patient was briefly on Levophed. Blood pressure has improved. Home BP meds resumed parameters. Home dose of hydralazine DC'd due to marginal blood pressure 4. Elevated troponins. Initial troponin 0.043 0.086 Cardiology has been consulted. Per cardiology continue conservative medical management. Continue aspirin Metroprolol and statin at this time 5. End-stage renal disease. Patient receives hemodialysis Saturday. Patient reports he did receive his dialysis on Saturday. Nephrology services are following 6. Acute on chronic systolic congestive heart failure. BNP 119,[address] Wong per nephrology. Okay to resume patient's home Lasix dose per nephrology. 2-D echo completed showing an EF of 45-50% 7. History of coronary artery disease with stent placement 8. History of chronic proximal atrial fibrillation. Per cardiology eliquis has been DC'd due to low hemoglobin. 9. Diabetes mellitus. Home meds resumed plus sliding scale. Hemoglobin A1c has been ordered 10. Status post kidney transplant in 2011 11. Status post liver transplant 2005 12. Non-Hodgkin's lymphoma in 2006 13. History of hyperlipidemia 14. History of essential hypertension. Patient had episode of hypotension here. Blood pressure has significantly improved. Home meds resumed with parameters 15. Increased weakness. Will consult physical therapy and social work for possible ECF placement upon discharge 16. Anemia of chronic kidney disease. hemoglubin 6.4 today. Per nephrology patient will receive IV iron and 1 unit of PRBCs today. Occult stool has been ordered. No active signs of bleeding at this time. Globin improving to 7.2. Patient will be given additional doses of IV iron per nephrology DVT prophylaxis SCDs, eliquis on hold due to anemia. GI prophylaxis Protonix
[2018-08-09 17:21] LABS: Glucose,Whole Blood 242 mg/dL (75-99)
[2018-08-09 20:15] LABS: Glucose,Whole Blood 119 mg/dL (75-99)
[2018-08-10] MEDS: HYDROcodone/APAP 10-325MG 1 EACH TAB PO PRN ×3 (04:45→20:46)
[2018-08-10 06:03] LABS: Glucose,Whole Blood 82 mg/dL (75-99)
[2018-08-10] MEDS: INSULIN ASPART (NovoLOG) 100 UNIT/ML VIAL SQ SCH ×4 (06:03→20:46)
[2018-08-10] MEDS: INSULN ASP PRT/INSULIN ASPART 100 UNIT/ML 10 ML VIAL SQ SCH ×2 (06:03→17:37)
[2018-08-10 07:13] LABS: Anisocytosis Slight; Basophils % (A) 0 %; Eosinophils # (A) 0.1 k/uL (0-0.7); Eosinophils % (A) 1 %; HCT 25.9 % (39.0-53.0); HGB 7.7 gm/dL (13.0-17.5); Hypochromasia Marked; Lymphocytes # (A) 0.3 k/uL (1.0-4.8); Lymphocytes % (A) 5 %; MCH 26.4 pg (25.0-35.0); MCHC 29.9 g/dL (31.0-37.0); MCV 88.3 fL (80.0-100.0); Mean Platelet Volume 6.5; Monocytes # (A) 0.4 k/uL (0-1.0); Monocytes % (A) 6 %; Neutrophils # (A) 5.7 k/uL (1.3-7.7); Neutrophils % (A) 87 %; Platelet Count 309 k/uL (150-450); Poikilocytosis Slight; RBC 2.93 m/uL (4.30-5.90); RDW 18.3 % (11.5-15.5); WBC 6.5 k/uL (3.8-10.6)
[2018-08-10 07:25] LABS: Magnesium 2.2 mg/dL (1.6-2.3); Phosphorus 2.7 mg/dL (2.5-4.5); Potassium 4.5 mmol/L (3.5-5.1)
[2018-08-10] MEDS: ASPIRIN 81 MG PO SCH (08:42)
[2018-08-10] MEDS: MULTIVITAMINS, THERA 1 EACH TAB PO SCH (08:43)
[2018-08-10] MEDS: PANTOPRAZOLE 40 MG TABLET PO SCH (08:43)
[2018-08-10] MEDS: DOCUSATE 100 MG CAP PO SCH ×2 (08:43→20:45)
[2018-08-10] MEDS: MAGNESIUM OXIDE 400 MG TAB PO SCH ×2 (08:43→20:45)
[2018-08-10] MEDS: FUROSEMIDE 80 MG TAB PO SCH ×3 (08:43→20:46)
[2018-08-10] MEDS: ATORVASTATIN 20 MG TAB PO SCH (08:43)
[2018-08-10] MEDS: METOPROLOL TARTRATE 50 MG TAB PO SCH ×2 (08:44→20:45)
[2018-08-10] MEDS: ALLOPURINOL 100 MG TAB PO SCH (08:44)
[2018-08-10] MEDS: predniSONE 2.5 MG TAB PO SCH ×2 (08:44→20:46)
[2018-08-10] MEDS: HEPARIN SODIUM,PORCINE 5,000 UNIT/ML 1 ML VIAL SQ SCH ×2 (08:44→20:45)
[2018-08-10] MEDS: CHOLECALCIFEROL 1,000 UNIT TAB PO SCH (08:44)
[2018-08-10] MEDS: TACROLIMUS 1 MG CAP PO SCH ×2 (08:45→20:46)
[2018-08-10] MEDS: MYCOPHENOLATE MOFETIL 250 MG CAP PO SCH ×2 (08:45→20:46)
[2018-08-10] MEDS: SODIUM FERRIC GLUCONAT-SUCROSE 125 MG in SODIUM CHLORIDE 0.9% 100 ML IVPB SCH (09:20)
--- NOTE | 2018-08-10 10:15 | P.PN ---
Subjective Progress Note Date: 08/10/18 This is a 72-year-old male patient. Presented to the emergency room multiple vague complaints including constipation. Upon arrival to ER patient was found to be in CHF exacerbation with possible pneumonia. Patient does have a significant past medical history of end-stage renal disease in which she gets hemodialysis Saturday. Additional medical history includes liver and kidney transplant, asthma, heart failure, COPD, diabetes mellitus, hyperlipidemia, GERD, Hypertension, heart cath with stents, atrial fibrillation which she is on eliquis, non-Hodgkin's lymphoma in 2006 and seizures. Chest x- ray completed showing mild infiltrate in the right lung base compared to last exam. No heart failure. There is new small right pleural effusion. Due to patient's complaint of consultation abdominal x-ray completed in ER showing nonacute abdomen and some vascular calcification. EKG completed showing accelerated junctional rhythm. Troponin slightly elevated at 0.043 and 0.07. BNP elevated at 119,000. Cardiology, nephrology and critical care management has been consulted. Patient currently on vancomycin. Patient also briefly on levophed for pressure support but has since been DC'd due to improvement with blood pressure. Patient to get hemodialysis per nephrology today. Case discussed with nephrology Dr. Wong. Okay to resume home dose of Lasix 80 mg 3 times a day per nephrology. At this time patient denies any chest pain or shortness of breath. Patient denies nausea vomiting or diarrhea. Patient denies any urinary burning or frequency. Patient is currently on room air. On 08/07/2018 patient is alert and oriented resting comfortably. Patient's blood pressure has remained stable. Patient underwent hemodialysis yesterday. Patient's hemoglobin 6.4. Eliquis has been DC'd per cardiology. Occult stool ordered. Distribution is complaining of constipation. Will start Colace and give lactulose. Per nursing staff denies any signs of active bleeding at this time. This time patient denies chest pain or shortness of breath. Patient denies nausea vomiting or diarrhea. Patient denies any urinary burning or frequency On 08/08/2018 patient currently sitting up in chair alert and oriented. Patient reports he currently feels much improved. Patient reports he still has not had a bowel movement. Patient did undergo hemodialysis yesterday and received 1 unit of PRBCs. Hemoglobin up to 7.2. Eliquis remains on hold per cardiology. Per nursing staff denies any signs of active bleeding. Patient denies chest pain or shortness breath. Patient denies nausea vomiting or diarrhea. Patient denies any urinary burning or frequency On 08/09/2018 patient is alert and oriented 3 in no apparent distress he is sitting up in a chair, he had a bowel movement yesterday he is eating his meal, he denies any chest pain or shortness of breath no nausea or vomiting no abdominal pain and no urinary symptoms. On 08/10/2018 patient is alert and oriented 3 in no apparent distress eating up in a chair he denies any chest pain or shortness of breath there is no fever or chills no headache or dizziness occasional cough no nausea or vomiting no abdominal pain no diarrhea and no urinary symptoms last bowel movement 2 days ago Objective - Vital Signs Vital signs: Vital Signs Temp 98.2 F 08/10/18 03:31 Pulse 65 08/10/18 03:31 Resp 19 08/10/18 03:31 BP 151/76 08/10/18 03:31 Pulse Ox 98 08/10/18 03:31 Intake & Output 08/09/18 08/10/18 08/10/18 18:59 06:59 18:59 Intake Total 1360 480 Output Total 800 75 Balance 560 405 Weight 79.9 kg Intake: Intake, IV Titration 200 Amount Sodium Ferric Gluconat- 200 Sucrose 125 mg In Sodium Chloride 0.9% 100 ml @ 100 mls/hr IVPB DAILY [facility] Rx#:[id number] Oral 1160 480 Output: Urine 800 75 Other: Voiding Method Urinal Urinal Diaper - Exam Head normocephalic and atraumatic Neck supple no JVD no goiter Lungs diminished bilaterally with scattered rhonchi Heart irregular rate no gallops no murmurs Abdomen is rounded soft nontender Extremities +1 lower extremity edema with ecchymosis to bilateral legs. Legs are currently wrapped in Kerlex and Mike wraps there is underlying erythema bilateral pretibial area Neurological examination reveals no gross focal deficit - Labs CBC & Chem 7: 08/10/18 06:35 08/10/18 06:35 Labs: Abnormal Lab Results - Last 24 Hours (Table) 08/09/18 08/09/18 08/09/18 Range/Units 11:37 16:48 20:12 RBC (4.30-5.90) m/uL Hgb (13.0-17.5) gm/dL Hct (39.0-53.0) % MCHC (31.0-37.0) g/dL RDW (11.5-15.5) % Lymphocytes # (1.0-4.8) k/uL Sodium (137-145) mmol/L BUN (9-20) mg/dL Creatinine (0.66-1.25) mg/dL Glucose (74-99) mg/dL POC Glucose (mg/dL) 166 H 242 H 119 H (75-99) mg/dL Calcium (8.4-10.2) mg/dL 08/10/18 08/10/18 Range/Units 06:35 06:35 RBC 2.93 L (4.30-5.90) m/uL Hgb 7.7 L (13.0-17.5) gm/dL Hct 25.9 L (39.0-53.0) % MCHC 29.9 L (31.0-37.0) g/dL RDW 18.3 H (11.5-15.5) % Lymphocytes # 0.3 L (1.0-4.8) k/uL Sodium 133 L (137-145) mmol/L BUN 35 H (9-20) mg/dL Creatinine 2.50 H (0.66-1.25) mg/dL Glucose 73 L (74-99) mg/dL POC Glucose (mg/dL) (75-99) mg/dL Calcium 8.0 L (8.4-10.2) mg/dL Assessment and Plan Plan: 1. Abdominal distention and pain clearly related to constipation Abdominal x- ray completed in the ER showing nonacute abdomen. Extensive vascular calcification. Patient was disimpacted by ER physician. Patient having episodes constipation. Patient started on Colace. Will give additional dose of lactulose to 2. Rule out pneumonia. Chest x-ray completed showing new mild infiltrate at the right lung base compared to last exam. No heart failure. There is small right pleural effusion. Dr. James is following for pulmonary. Antibiotics have been DC'd at this time 3. Hypotension. Patient was briefly on Levophed. Blood pressure has improved. Home BP meds resumed parameters. Home dose of hydralazine DC'd due to marginal blood pressure 4. Elevated troponins. Initial troponin 0.043 0.086 Cardiology has been consulted. Per cardiology continue conservative medical management. Continue aspirin Metroprolol and statin at this time 5. End-stage renal disease. Patient receives hemodialysis Saturday. Patient reports he did receive his dialysis on Saturday. Nephrology services are following 6. Acute on chronic systolic congestive heart failure. BNP 119,[address] Wong per nephrology. Okay to resume patient's home Lasix dose per nephrology. 2-D echo completed showing an EF of 45-50% 7. History of coronary artery disease with stent placement 8. History of chronic proximal atrial fibrillation. Per cardiology eliquis has been DC'd due to low hemoglobin. 9. Diabetes mellitus. Home meds resumed plus sliding scale. Hemoglobin A1c has been ordered 10. Status post kidney transplant in 2011 11. Status post liver transplant 2005 12. Non-Hodgkin's lymphoma in 2006 13. History of hyperlipidemia 14. History of essential hypertension. Patient had episode of hypotension here. Blood pressure has significantly improved. Home meds resumed with parameters 15. Increased weakness. Will consult physical therapy and social work for possible ECF placement upon discharge 16. Anemia of chronic kidney disease. hemoglubin 6.4 today. Per nephrology patient will receive IV iron and 1 unit of PRBCs today. Occult stool has been ordered. No active signs of bleeding at this time. Globin improving to 7.2. Patient will be given additional doses of IV iron per nephrology. 17. Bilateral lower extremity cellulitis patient started on IV Rocephin consultation for infectious disease was initiated DVT prophylaxis SCDs eliquis on hold due to anemia. GI prophylaxis Protonix
--- NOTE | 2018-08-10 11:16 | P.PN ---
Subjective Progress Note Date: 08/10/18 Seen and examined for the follow-up of ESRD. Sitting comfortably in the chair. No acute distress. No nausea vomiting diarrhea. Had dialysis on Saturday. Objective - Vital Signs Vital signs: Vital Signs Temp 98.2 F 08/10/18 03:31 Pulse 65 08/10/18 03:31 Resp 19 08/10/18 03:31 BP 151/76 08/10/18 03:31 Pulse Ox 98 08/10/18 03:31 Intake & Output 08/09/18 08/10/18 08/10/18 18:59 06:59 18:59 Intake Total 1360 480 Output Total 800 75 Balance 560 405 Weight 79.9 kg Intake: Intake, IV Titration 200 Amount Sodium Ferric Gluconat- 200 Sucrose 125 mg In Sodium Chloride 0.9% 100 ml @ 100 mls/hr IVPB DAILY [facility] Rx#:[id number] Oral 1160 480 Output: Urine 800 75 Other: Voiding Method Urinal Urinal Diaper - Exam No acute distress S1-S2 heard Right jugular permacath Lower extremity bilateral edema - Labs CBC & Chem 7: 08/10/18 06:35 08/10/18 06:35 Labs: Abnormal Lab Results - Last 24 Hours (Table) 08/09/18 08/09/18 08/09/18 Range/Units 11:37 16:48 20:12 RBC (4.30-5.90) m/uL Hgb (13.0-17.5) gm/dL Hct (39.0-53.0) % MCHC (31.0-37.0) g/dL RDW (11.5-15.5) % Lymphocytes # (1.0-4.8) k/uL Sodium (137-145) mmol/L BUN (9-20) mg/dL Creatinine (0.66-1.25) mg/dL Glucose (74-99) mg/dL POC Glucose (mg/dL) 166 H 242 H 119 H (75-99) mg/dL Calcium (8.4-10.2) mg/dL 08/10/18 08/10/18 Range/Units 06:35 06:35 RBC 2.93 L (4.30-5.90) m/uL Hgb 7.7 L (13.0-17.5) gm/dL Hct 25.9 L (39.0-53.0) % MCHC 29.9 L (31.0-37.0) g/dL RDW 18.3 H (11.5-15.5) % Lymphocytes # 0.3 L (1.0-4.8) k/uL Sodium 133 L (137-145) mmol/L BUN 35 H (9-20) mg/dL Creatinine 2.50 H (0.66-1.25) mg/dL Glucose 73 L (74-99) mg/dL POC Glucose (mg/dL) (75-99) mg/dL Calcium 8.0 L (8.4-10.2) mg/dL Assessment and Plan Assessment: #1 end-stage renal disease MWF #2 status post DDA [address] [facility] #3 systolic CHF with EF of 40% with pulmonary hypertension #4 atrial fibrillation on 90 copulation #5 anemia with chronic kidney disease #6 hypertension with chronic kidney disease Plan: #1 plan hemodialysis Saturday #2 IV iron and MANUEL #3 maintain immunosuppressive medications #4 supportive care
--- NOTE | 2018-08-10 11:42 | XR ---
EXAMINATION TYPE: XR chest 2V DATE OF EXAM: 08/10/2018 COMPARISON: 08/06/2018 HISTORY: Shortness of breath TECHNIQUE: Frontal and lateral views of the chest are obtained. FINDINGS: Scattered senescent parenchymal changes noted. Hyperinflation compatible with COPD. Patchy basilar densities may reflect underlying pneumonia and/or atelectasis. Heart size is stable. Right and left IJ central venous lines. Mediastinal structures are stable and grossly unremarkable. No evidence for hilar prominence. Degenerative changes dorsal spine. IMPRESSION: 1. Patchy basilar densities may reflect underlying pneumonia and/or atelectasis.
[2018-08-10 12:19] LABS: Glucose,Whole Blood 138 mg/dL (75-99)
[2018-08-10 16:59] LABS: Glucose,Whole Blood 197 mg/dL (75-99)
[2018-08-10 20:52] LABS: Glucose,Whole Blood 139 mg/dL (75-99)
--- NOTE | 2018-08-11 01:17 | CONS ---
CONSULTATION DATE OF SERVICE: 08/10/2018. REASON FOR CONSULTATION: Left leg cellulitis. HISTORY OF PRESENT ILLNESS: The patient is a 72-year-old male who presented to the ER at [facility] 08/05/2018 with chief complaint of hurting every way. The patient also has been complaining of bilateral neck pain and right sided pain with no bowel movement for 2 days. The patient did have a history of the on hemodialysis Saturday, Saturday, Saturday. The patient on admission was evaluated by the ER physician. Since the patient has admitted to the hospital, no fever has been recorded. The patient did have mild elevated white count 10.7 on admission. Subsequently, his white count has been normal. There was initial concern for possible pneumonia. The patient was treated with vancomycin and was subsequently discontinued. He was noted to have more swelling mostly in the left leg with minimal redness. He did have lower extremity Doppler was negative for DVT, however, did show some subcutaneous edema. The patient was started on Rocephin and admitted and Infectious Disease was consulted for further recommendation regarding antibiotic therapy. The patient did have some dull aching pain to the left leg which is mild to moderate in intensity about 2-3 with no radiation currently with no complaints or open wound or any drainage. REVIEW OF SYSTEMS: Positive points has been mentioned in HPI. The rest of the systems has been negative. PAST MEDICAL HISTORY: Asthma, heart failure, COPD, diabetes mellitus, gastroesophageal reflux disease, hypertension, hyperlipidemia, osteoarthritis, pneumonia, seizure disorder, history of MRSA infection. PAST SURGICAL HISTORY: Heart catheterization with stent. Liver transplant, colonoscopy, left arm resection for dialysis, kidney transplant. SOCIAL HISTORY: Remote history of smoking. No drinking. No drug use. FAMILY HISTORY: Father history of cancer and hypertension. Mother history of diabetes and hypertension. ALLERGIES: TO CODEINE AND ERYTHROMYCIN. MEDICATIONS: Medications include the patient is currently on Tylenol, Hughson, Zyloprim, aspirin, Lipitor, Rocephin 1 g daily, vitamin D3, Colace, Lasix, heparin, NovoLog, Mag oxide, Lopressor, Theragran, CellCept, Narcan Protonix, prednisone, Prograf. PHYSICAL EXAMINATION: Blood pressure is 148/57 with a pulse of 52, temperature 98.9. He is 93% on room air. General description is an elderly male up in the chair in no distress. No tachypnea or accessory muscle of respiration use. HEENT: Shows slight pallor. No scleral icterus. Oral mucosa membranes are dry. No pharyngeal erythema or thrush. Neck: Trachea midline. No thyromegaly. Lungs unlabored breathing, decreased breath sounds in the bases. No wheeze. Heart S1, S2. Regular rate and rhythm. ABDOMEN: Soft, no tenderness. No guarding. No rigidity. Extremities: 3+ edema of the feet, mostly viral, along the left leg did have minimal erythema. No open wound currently dressed. No significant warmth or any drainage. Neurological: Patient is awake, alert, oriented times three. Mood and affect normal. LABS: Hemoglobin 7.7, white count 6.5 with a BUN of 35, creatinine 2.50. No cultures. DIAGNOSTIC IMPRESSION/PLAN: 1. Patient with left leg swelling, more likely secondary to fluid retention. Did have minimal erythema. Did have minimal erythema. No significant warmth. 2. not entirely excluded and more likely gram positive skin dc. By : 3. skin dc less likely gram-negative infection. PLAN: 1. Discontinue the Rocephin. 2. Will start the patient on Cefepime 2 g daily dose adjust to his kidney function. The patient's dialysis dependent. 3. Mike wrap to the leg to keep the swelling down. 4. We will follow up on clinical condition and further adjust medication if needed. Thank you for this consultation. Will follow this patient along with you. MMODL / IJN: [id number] /
[2018-08-11 05:59] LABS: Glucose,Whole Blood 100 mg/dL (75-99)
[2018-08-11] MEDS: INSULIN ASPART (NovoLOG) 100 UNIT/ML VIAL SQ SCH ×4 (06:08→22:28)
[2018-08-11] MEDS: INSULN ASP PRT/INSULIN ASPART 100 UNIT/ML 10 ML VIAL SQ SCH ×2 (06:09→17:19)
[2018-08-11 06:15] LABS: Anisocytosis Slight; Basophils % (A) 0 %; Eosinophils # (A) 0.2 k/uL (0-0.7); Eosinophils % (A) 2 %; HCT 27.4 % (39.0-53.0); HGB 8.1 gm/dL (13.0-17.5); Hypochromasia Marked; Lymphocytes # (A) 0.5 k/uL (1.0-4.8); Lymphocytes % (A) 6 %; MCH 25.1 pg (25.0-35.0); MCHC 29.5 g/dL (31.0-37.0); MCV 85.2 fL (80.0-100.0); Mean Platelet Volume 7.5; Monocytes # (A) 0.5 k/uL (0-1.0); Monocytes % (A) 6 %; Neutrophils # (A) 6.4 k/uL (1.3-7.7); Neutrophils % (A) 85 %; Platelet Count 337 k/uL (150-450); Poikilocytosis Slight; RBC 3.22 m/uL (4.30-5.90); RDW 18.6 % (11.5-15.5); WBC 7.5 k/uL (3.8-10.6)
[2018-08-11 06:57] LABS: Albumin 2.3 g/dL (3.5-5.0); Calcium 8.1 mg/dL (8.4-10.2); Magnesium 2.2 mg/dL (1.6-2.3); Phosphorus 2.7 mg/dL (2.5-4.5); Total Bilirubin 0.8 mg/dL (0.2-1.3); Total Protein 4.5 g/dL (6.3-8.2)
[2018-08-11 07:01] LABS: Potassium 5.5 mmol/L (3.5-5.1)
[2018-08-11] MEDS: MULTIVITAMINS, THERA 1 EACH TAB PO SCH (08:48)
[2018-08-11] MEDS: ALLOPURINOL 100 MG TAB PO SCH (08:48)
[2018-08-11] MEDS: CHOLECALCIFEROL 1,000 UNIT TAB PO SCH (08:48)
[2018-08-11] MEDS: DOCUSATE 100 MG CAP PO SCH ×2 (08:48→20:01)
[2018-08-11] MEDS: FUROSEMIDE 80 MG TAB PO SCH ×3 (08:49→22:28)
[2018-08-11] MEDS: METOPROLOL TARTRATE 50 MG TAB PO SCH ×2 (08:49→20:01)
[2018-08-11] MEDS: HEPARIN SODIUM,PORCINE 5,000 UNIT/ML 1 ML VIAL SQ SCH ×2 (08:49→20:02)
[2018-08-11] MEDS: PANTOPRAZOLE 40 MG TABLET PO SCH (08:49)
[2018-08-11] MEDS: MAGNESIUM OXIDE 400 MG TAB PO SCH ×2 (08:49→20:01)
[2018-08-11] MEDS: ATORVASTATIN 20 MG TAB PO SCH (08:49)
[2018-08-11] MEDS: ASPIRIN 81 MG PO SCH (08:49)
[2018-08-11] MEDS: predniSONE 2.5 MG TAB PO SCH ×2 (08:50→20:00)
[2018-08-11] MEDS: TACROLIMUS 1 MG CAP PO SCH ×2 (08:51→20:02)
[2018-08-11] MEDS: MYCOPHENOLATE MOFETIL 250 MG CAP PO SCH ×2 (08:51→20:01)
--- NOTE | 2018-08-11 10:54 | P.PN ---
Subjective Progress Note Date: 08/11/18 This is a 72-year-old male patient. Presented to the emergency room multiple vague complaints including constipation. Upon arrival to ER patient was found to be in CHF exacerbation with possible pneumonia. Patient does have a significant past medical history of end-stage renal disease in which she gets hemodialysis Saturday. Additional medical history includes liver and kidney transplant, asthma, heart failure, COPD, diabetes mellitus, hyperlipidemia, GERD, Hypertension, heart cath with stents, atrial fibrillation which she is on eliquis, non-Hodgkin's lymphoma in 2006 and seizures. Chest x- ray completed showing mild infiltrate in the right lung base compared to last exam. No heart failure. There is new small right pleural effusion. Due to patient's complaint of consultation abdominal x-ray completed in ER showing nonacute abdomen and some vascular calcification. EKG completed showing accelerated junctional rhythm. Troponin slightly elevated at 0.043 and 0.07. BNP elevated at 119,000. Cardiology, nephrology and critical care management has been consulted. Patient currently on vancomycin. Patient also briefly on levophed for pressure support but has since been DC'd due to improvement with blood pressure. Patient to get hemodialysis per nephrology today. Case discussed with nephrology Dr. Wong. Okay to resume home dose of Lasix 80 mg 3 times a day per nephrology. At this time patient denies any chest pain or shortness of breath. Patient denies nausea vomiting or diarrhea. Patient denies any urinary burning or frequency. Patient is currently on room air. On 08/07/2018 patient is alert and oriented resting comfortably. Patient's blood pressure has remained stable. Patient underwent hemodialysis yesterday. Patient's hemoglobin 6.4. Eliquis has been DC'd per cardiology. Occult stool ordered. Distribution is complaining of constipation. Will start Colace and give lactulose. Per nursing staff denies any signs of active bleeding at this time. This time patient denies chest pain or shortness of breath. Patient denies nausea vomiting or diarrhea. Patient denies any urinary burning or frequency On 08/08/2018 patient currently sitting up in chair alert and oriented. Patient reports he currently feels much improved. Patient reports he still has not had a bowel movement. Patient did undergo hemodialysis yesterday and received 1 unit of PRBCs. Hemoglobin up to 7.2. Eliquis remains on hold per cardiology. Per nursing staff denies any signs of active bleeding. Patient denies chest pain or shortness breath. Patient denies nausea vomiting or diarrhea. Patient denies any urinary burning or frequency On 08/09/2018 patient is alert and oriented 3 in no apparent distress he is sitting up in a chair, he had a bowel movement yesterday he is eating his meal, he denies any chest pain or shortness of breath no nausea or vomiting no abdominal pain and no urinary symptoms. On 08/10/2018 patient is alert and oriented 3 in no apparent distress eating up in a chair he denies any chest pain or shortness of breath there is no fever or chills no headache or dizziness occasional cough no nausea or vomiting no abdominal pain no diarrhea and no urinary symptoms last bowel movement 2 days ago On 08/11/2018 patient is alert and oriented 3. Patient currently sitting up in chair. Patient denies chest pain or shortness of breath. Patient denies nausea vomiting or diarrhea. Patient denies any urinary burning or frequency. Patient currently on IV cefepime per infectious disease for bilateral lower extremity cellulitis. Discharge planning to rehab [facility]. Objective - Vital Signs Vital signs: Vital Signs Temp 97.6 F 08/11/18 09:00 Pulse 84 08/11/18 09:00 Resp 18 08/11/18 09:00 BP 156/70 08/11/18 09:00 Pulse Ox 96 08/11/18 09:00 Intake & Output 08/10/18 08/11/18 08/11/18 18:59 06:59 18:59 Intake Total 1180 400 Output Total 100 10 Balance 1080 400 -10 Weight 81.6 kg Intake: Intake, IV Titration 100 Amount Sodium Ferric Gluconat- 100 Sucrose 125 mg In Sodium Chloride 0.9% 100 ml @ 100 mls/hr IVPB DAILY [facility] Rx#:[id number] Oral 1080 400 Output: Urine 100 Stool 10 Other: Voiding Method Urinal Urinal Urinal # Voids 1 - Exam Head normocephalic Neck supple Lungs diminished bilaterally with scattered rhonchi Heart irregular rate Abdomen is rounded soft nontender Extremities +1 lower extremity edema with ecchymosis to bilateral legs. Legs are currently wrapped in Kerlex - Labs CBC & Chem 7: 08/11/18 05:32 08/11/18 05:32 Labs: Abnormal Lab Results - Last 24 Hours (Table) 08/10/18 08/10/18 08/10/18 Range/Units 11:59 16:48 20:45 RBC (4.30-5.90) m/uL Hgb (13.0-17.5) gm/dL Hct (39.0-53.0) % MCHC (31.0-37.0) g/dL RDW (11.5-15.5) % Lymphocytes # (1.0-4.8) k/uL Sodium (137-145) mmol/L Potassium (3.5-5.1) mmol/L BUN (9-20) mg/dL Creatinine (0.66-1.25) mg/dL POC Glucose (mg/dL) 138 H 197 H 139 H (75-99) mg/dL Calcium (8.4-10.2) mg/dL Alkaline Phosphatase (38-126) U/L Total Protein (6.3-8.2) g/dL Albumin (3.5-5.0) g/dL 08/11/18 08/11/18 08/11/18 Range/Units 05:32 05:32 05:52 RBC 3.22 L (4.30-5.90) m/uL Hgb 8.1 L (13.0-17.5) gm/dL Hct 27.4 L (39.0-53.0) % MCHC 29.5 L (31.0-37.0) g/dL RDW 18.6 H (11.5-15.5) % Lymphocytes # 0.5 L (1.0-4.8) k/uL Sodium 132 L (137-145) mmol/L Potassium 5.5 H (3.5-5.1) mmol/L BUN 44 H (9-20) mg/dL Creatinine 2.76 H (0.66-1.25) mg/dL POC Glucose (mg/dL) 100 H (75-99) mg/dL Calcium 8.1 L (8.4-10.2) mg/dL Alkaline Phosphatase 170 H (38-126) U/L Total Protein 4.5 L (6.3-8.2) g/dL Albumin 2.3 L (3.5-5.0) g/dL Assessment and Plan Assessment: 1. Abdominal distention and pain clearly related to constipation Abdominal x- ray completed in the ER showing nonacute abdomen. Extensive vascular calcification. Patient was disimpacted by ER physician. Patient having episodes constipation. Patient started on Colace. 2. Rule out pneumonia. Chest x-ray completed showing new mild infiltrate at the right lung base compared to last exam. No heart failure. There is small right pleural effusion. Dr. James is following for pulmonary. Antibiotics have been DC'd at this time 3. Hypotension. Patient was briefly on Levophed. Blood pressure has improved. Home BP meds resumed parameters. Home dose of hydralazine DC'd due to marginal blood pressure 4. Elevated troponins. Initial troponin 0.043 0.086 Cardiology has been consulted. Per cardiology continue conservative medical management. Continue aspirin Metroprolol and statin at this time 5. End-stage renal disease. Patient receives hemodialysis Saturday. Patient reports he did receive his dialysis on Saturday. Nephrology services are following 6. Acute on chronic systolic congestive heart failure. BNP 119,[address] Wong per nephrology. Okay to resume patient's home Lasix dose per nephrology. 2-D echo completed showing an EF of 45-50% 7. History of coronary artery disease with stent placement 8. History of chronic proximal atrial fibrillation. Per cardiology eliquis has been DC'd due to low hemoglobin. 9. Diabetes mellitus. Home meds resumed plus sliding scale. Hemoglobin A1c has been ordered 10. Status post kidney transplant in 2011 11. Status post liver transplant 2005 12. Non-Hodgkin's lymphoma in 2006 13. History of hyperlipidemia 14. History of essential hypertension. Patient had episode of hypotension here. Blood pressure has significantly improved. Home meds resumed with parameters 15. Increased weakness. Will consult physical therapy and social work for possible ECF placement upon discharge 16. Anemia of chronic kidney disease. hemoglubin 6.4 today. Per nephrology patient will receive IV iron and 1 unit of PRBCs today. Occult stool has been ordered. No active signs of bleeding at this time. Globin improving to 7.2. Patient will be given additional doses of IV iron per nephrology 17. Bilateral lower extremity cellulitis. Patient currently on cefepime per infectious disease DVT prophylaxis SCDs, eliquis on hold due to anemia. GI prophylaxis Protonix I performed an examination of the patient and discussed their management with the Nurse Practitioner. I have reviewed the Nurse Practitioner's notes and agree with the documented findings and plan of care
[2018-08-11 11:29] LABS: Glucose,Whole Blood 176 mg/dL (75-99)
[2018-08-11] MEDS ORDERED: SODIUM POLYSTYRENE SULFONATE 15 GM/60 ML BOTTLE PO STA (14:33)
[2018-08-11] MEDS: ceFAZolin IN SWFI 2 GM/20 ML SYRINGE IVP SCH (15:09)
[2018-08-11 16:30] LABS: Glucose,Whole Blood 167 mg/dL (75-99)
[2018-08-11] MEDS ORDERED: HEPARIN SODIUM,PORCINE 5,000 UNIT/ML 1 ML VIAL ONE (19:00)
[2018-08-11] MEDS: hydrALAZINE HCL 25 MG TAB PO SCH ×2 (20:00→22:28)
[2018-08-11] MEDS: HYDROcodone/APAP 10-325MG 1 EACH TAB PO PRN (20:07)
[2018-08-11 20:31] LABS: Glucose,Whole Blood 107 mg/dL (75-99)
--- NOTE | 2018-08-11 20:57 | PN ---
PROGRESS NOTE The patient is seen for followup for end-stage renal disease. He is currently sitting up on a bedside chair. He denies any significant complaints. He is trying to increase his oral intake. The patient is scheduled for hemodialysis today. PHYSICAL EXAMINATION: Blood pressure is 132/67, heart rate 84 per minute. He is afebrile. Examination of the heart S1, S2. Examination of the lungs bilateral breath sounds are heard. No crackles are heard. No wheezing is heard. Abdomen is soft, distended. Examination of lower extremities shows edema 3+ bilaterally. [employer] exam is grossly intact. LABS SHOW: Sodium 132, potassium 5.5, hemoglobin 8.1 g/dL, phosphorus was 2.7. ASSESSMENT: 1. End-stage renal disease, currently on hemodialysis on a Saturday, Saturday, Saturday schedule. 2. Status post donor renal allograft in 2005 at [facility]. Currently on dialysis. 3. History of liver transplant, currently maintained on immunosuppression. 4. Congestive heart failure, systolic, acute on top of chronic ejection fraction 40%. 5. Pulmonary hypertension. 6. Chronic atrial fibrillation maintained on anticoagulation. 7. Anemia with iron deficiency. 8. Hyperkalemia, expect improvement with hemodialysis. PLAN: Hemodialysis today. Encourage increased oral intake. I will try to increase UF as tolerated. MMODL / IJN: [id number] /
--- NOTE | 2018-08-12 00:36 | PN ---
PROGRESS NOTE DATE OF SERVICE: 08/11/2018. REASON FOR FOLLOWUP: Bilateral lower extremity cellulitis. INTERVAL HISTORY: The patient is currently afebrile. He is breathing comfortably. Denies any chest pain or cough. No abdominal pain. He did swelling in the leg, but no significant pain or any open wound. PHYSICAL EXAMINATION: Blood pressure 152/72 with a pulse of 86, temperature of 97.6, he is 97% on room air. GENERAL DESCRIPTION: An elderly male up in the chair in no distress. RESPIRATORY SYSTEM: Unlabored breathing. Clear to auscultation anteriorly. HEART: S1, S2. Regular rate and rhythm. EXTREMITIES: Some swelling with minimal tenderness. No significant warmth or any drainage. LABS: Hemoglobin 8.1, white count 7.5. BUN 44, creatinine 0.76. DIAGNOSTIC IMPRESSION AND PLAN: Patient with bilateral lower extremity swelling with minimal redness not excluded. Keep Mike wrap to keep the swelling down. Continue supportive care. MMODL / IJN: [id number] /
[2018-08-12] MEDS: ACETAMINOPHEN TAB 325 MG TAB PO PRN (02:04)
[2018-08-12 05:32] LABS: Glucose,Whole Blood 77 mg/dL (75-99)
[2018-08-12] MEDS: INSULIN ASPART (NovoLOG) 100 UNIT/ML VIAL SQ SCH ×4 (05:53→21:23)
[2018-08-12] MEDS: INSULN ASP PRT/INSULIN ASPART 100 UNIT/ML 10 ML VIAL SQ SCH ×2 (05:54→17:50)
[2018-08-12 06:49] LABS: Anisocytosis Slight; Basophils % (A) 0 %; Eosinophils # (A) 0.1 k/uL (0-0.7); Eosinophils % (A) 2 %; HCT 26.4 % (39.0-53.0); HGB 7.3 gm/dL (13.0-17.5); Hypochromasia Marked; Lymphocytes # (A) 0.5 k/uL (1.0-4.8); Lymphocytes % (A) 8 %; MCH 24.5 pg (25.0-35.0); MCHC 27.8 g/dL (31.0-37.0); MCV 88.2 fL (80.0-100.0); Mean Platelet Volume 6.9; Monocytes # (A) 0.3 k/uL (0-1.0); Monocytes % (A) 6 %; Neutrophils # (A) 4.6 k/uL (1.3-7.7); Neutrophils % (A) 82 %; Platelet Count 343 k/uL (150-450); Poikilocytosis Slight; RBC 2.99 m/uL (4.30-5.90); RDW 19.1 % (11.5-15.5); WBC 5.5 k/uL (3.8-10.6)
[2018-08-12 07:04] LABS: Albumin 2.2 g/dL (3.5-5.0); Calcium 7.9 mg/dL (8.4-10.2); Potassium 4.4 mmol/L (3.5-5.1); Total Bilirubin 0.6 mg/dL (0.2-1.3); Total Protein 4.2 g/dL (6.3-8.2)
[2018-08-12] MEDS: DOCUSATE 100 MG CAP PO SCH ×2 (08:26→21:19)
[2018-08-12] MEDS: HEPARIN SODIUM,PORCINE 5,000 UNIT/ML 1 ML VIAL SQ SCH ×2 (08:26→21:19)
[2018-08-12] MEDS: MYCOPHENOLATE MOFETIL 250 MG CAP PO SCH ×2 (08:26→21:23)
[2018-08-12] MEDS: METOPROLOL TARTRATE 50 MG TAB PO SCH ×2 (08:27→21:20)
[2018-08-12] MEDS: ALLOPURINOL 100 MG TAB PO SCH (08:27)
[2018-08-12] MEDS: MAGNESIUM OXIDE 400 MG TAB PO SCH ×2 (08:27→21:19)
[2018-08-12] MEDS: ATORVASTATIN 20 MG TAB PO SCH (08:27)
[2018-08-12] MEDS: predniSONE 2.5 MG TAB PO SCH ×2 (08:27→21:22)
[2018-08-12] MEDS: hydrALAZINE HCL 25 MG TAB PO SCH ×3 (08:27→21:22)
[2018-08-12] MEDS: TACROLIMUS 1 MG CAP PO SCH ×2 (08:27→21:21)
[2018-08-12] MEDS: FUROSEMIDE 80 MG TAB PO SCH ×3 (08:27→21:20)
[2018-08-12] MEDS: CHOLECALCIFEROL 1,000 UNIT TAB PO SCH (08:27)
[2018-08-12] MEDS: ASPIRIN 81 MG PO SCH (08:27)
[2018-08-12] MEDS: PANTOPRAZOLE 40 MG TABLET PO SCH (08:27)
[2018-08-12] MEDS: ceFAZolin IN SWFI 2 GM/20 ML SYRINGE IVP SCH (08:28)
[2018-08-12] MEDS: MULTIVITAMINS, THERA 1 EACH TAB PO SCH (08:28)
[2018-08-12] MEDS: HYDROcodone/APAP 10-325MG 1 EACH TAB PO PRN (08:34)
[2018-08-12] MEDS ORDERED: SODIUM FERRIC GLUCONAT-SUCROSE 125 MG in SODIUM CHLORIDE 0.9% 100 ML IVPB ONE (10:00)
[2018-08-12 12:35] LABS: Glucose,Whole Blood 200 mg/dL (75-99)
[2018-08-12] MEDS ORDERED: LACTULOSE 20 GM/30 ML CUP PO ONE (14:18)
--- NOTE | 2018-08-12 14:22 | P.PN ---
Subjective Progress Note Date: 08/12/18 This is a 72-year-old male patient. Presented to the emergency room multiple vague complaints including constipation. Upon arrival to ER patient was found to be in CHF exacerbation with possible pneumonia. Patient does have a significant past medical history of end-stage renal disease in which she gets hemodialysis Saturday. Additional medical history includes liver and kidney transplant, asthma, heart failure, COPD, diabetes mellitus, hyperlipidemia, GERD, Hypertension, heart cath with stents, atrial fibrillation which she is on eliquis, non-Hodgkin's lymphoma in 2006 and seizures. Chest x- ray completed showing mild infiltrate in the right lung base compared to last exam. No heart failure. There is new small right pleural effusion. Due to patient's complaint of consultation abdominal x-ray completed in ER showing nonacute abdomen and some vascular calcification. EKG completed showing accelerated junctional rhythm. Troponin slightly elevated at 0.043 and 0.07. BNP elevated at 119,000. Cardiology, nephrology and critical care management has been consulted. Patient currently on vancomycin. Patient also briefly on levophed for pressure support but has since been DC'd due to improvement with blood pressure. Patient to get hemodialysis per nephrology today. Case discussed with nephrology Dr. Wong. Okay to resume home dose of Lasix 80 mg 3 times a day per nephrology. At this time patient denies any chest pain or shortness of breath. Patient denies nausea vomiting or diarrhea. Patient denies any urinary burning or frequency. Patient is currently on room air. On 08/07/2018 patient is alert and oriented resting comfortably. Patient's blood pressure has remained stable. Patient underwent hemodialysis yesterday. Patient's hemoglobin 6.4. Eliquis has been DC'd per cardiology. Occult stool ordered. Distribution is complaining of constipation. Will start Colace and give lactulose. Per nursing staff denies any signs of active bleeding at this time. This time patient denies chest pain or shortness of breath. Patient denies nausea vomiting or diarrhea. Patient denies any urinary burning or frequency On 08/08/2018 patient currently sitting up in chair alert and oriented. Patient reports he currently feels much improved. Patient reports he still has not had a bowel movement. Patient did undergo hemodialysis yesterday and received 1 unit of PRBCs. Hemoglobin up to 7.2. Eliquis remains on hold per cardiology. Per nursing staff denies any signs of active bleeding. Patient denies chest pain or shortness breath. Patient denies nausea vomiting or diarrhea. Patient denies any urinary burning or frequency On 08/09/2018 patient is alert and oriented 3 in no apparent distress he is sitting up in a chair, he had a bowel movement yesterday he is eating his meal, he denies any chest pain or shortness of breath no nausea or vomiting no abdominal pain and no urinary symptoms. On 08/10/2018 patient is alert and oriented 3 in no apparent distress eating up in a chair he denies any chest pain or shortness of breath there is no fever or chills no headache or dizziness occasional cough no nausea or vomiting no abdominal pain no diarrhea and no urinary symptoms last bowel movement 2 days ago On 08/11/2018 patient is alert and oriented 3. Patient currently sitting up in chair. Patient denies chest pain or shortness of breath. Patient denies nausea vomiting or diarrhea. Patient denies any urinary burning or frequency. Patient currently on IV cefepime per infectious disease for bilateral lower extremity cellulitis. Discharge planning to rehab possibly [facility]. On 08/12/2018 patient's alert and oriented 3 sitting up in chair. This time patient denies chest pain or shortness breath. Patient denies nausea vomiting or diarrhea. Patient is still complaining of some abdominal discomfort due to constipation. Will order lactulose at this time. Patient also maintained on Colace. Patient to be DC'd to [facility] when bed available. Did update patient' s Lacey. Objective - Vital Signs Vital signs: Vital Signs Temp 97.7 F 08/12/18 12:00 Pulse 64 08/12/18 12:00 Resp 18 08/12/18 12:00 BP 136/62 08/12/18 12:00 Pulse Ox 99 08/12/18 12:00 Intake & Output 08/11/18 08/12/18 08/12/18 18:59 06:59 18:59 Intake Total 3120 3600 Output Total 90 10 120 Balance 3030 -10 3480 Weight 80.1 kg 80.1 kg Intake: Oral 3120 3600 Output: Urine 50 100 Stool 40 10 20 Other: Voiding Method Urinal Urinal Urinal # Voids 1 1 2 # Bowel Movements 0 - Exam Head normocephalic Neck supple Lungs diminished bilaterally with scattered rhonchi Heart irregular rate Abdomen is rounded soft nontender Extremities +1 lower extremity edema with ecchymosis to bilateral legs. Legs are currently wrapped in Kerlex - Labs CBC & Chem 7: 08/12/18 05:56 08/12/18 05:56 Labs: Abnormal Lab Results - Last 24 Hours (Table) 08/11/18 08/11/18 08/12/18 Range/Units 16:29 20:30 05:56 RBC 2.99 L (4.30-5.90) m/uL Hgb 7.3 L (13.0-17.5) gm/dL Hct 26.4 L (39.0-53.0) % MCH 24.5 L (25.0-35.0) pg MCHC 27.8 L (31.0-37.0) g/dL RDW 19.1 H (11.5-15.5) % Lymphocytes # 0.5 L (1.0-4.8) k/uL Sodium (137-145) mmol/L BUN (9-20) mg/dL Creatinine (0.66-1.25) mg/dL Glucose (74-99) mg/dL POC Glucose (mg/dL) 167 H 107 H (75-99) mg/dL Calcium (8.4-10.2) mg/dL AST (17-59) U/L ALT (21-72) U/L Alkaline Phosphatase (38-126) U/L Total Protein (6.3-8.2) g/dL Albumin (3.5-5.0) g/dL 08/12/18 08/12/18 Range/Units 05:56 11:34 RBC (4.30-5.90) m/uL Hgb (13.0-17.5) gm/dL Hct (39.0-53.0) % MCH (25.0-35.0) pg MCHC (31.0-37.0) g/dL RDW (11.5-15.5) % Lymphocytes # (1.0-4.8) k/uL Sodium 135 L (137-145) mmol/L BUN 30 H (9-20) mg/dL Creatinine 2.24 H (0.66-1.25) mg/dL Glucose 70 L (74-99) mg/dL POC Glucose (mg/dL) 200 H (75-99) mg/dL Calcium 7.9 L (8.4-10.2) mg/dL AST 14 L (17-59) U/L ALT 20 L (21-72) U/L Alkaline Phosphatase 175 H (38-126) U/L Total Protein 4.2 L (6.3-8.2) g/dL Albumin 2.2 L (3.5-5.0) g/dL Assessment and Plan Assessment: 1. Abdominal distention and pain clearly related to constipation Abdominal x- ray completed in the ER showing nonacute abdomen. Extensive vascular calcification. Patient was disimpacted by ER physician. Patient having episodes constipation. Patient started on Colace. Dose of lactulose will be given 2. Rule out pneumonia. Chest x-ray completed showing new mild infiltrate at the right lung base compared to last exam. No heart failure. There is small right pleural effusion. Dr. James is following for pulmonary. Antibiotics have been DC'd at this time 3. Hypotension. Patient was briefly on Levophed. Blood pressure has improved. Home BP meds resumed parameters. Home dose of hydralazine DC'd due to marginal blood pressure 4. Elevated troponins. Initial troponin 0.043 0.086 Cardiology has been consulted. Per cardiology continue conservative medical management. Continue aspirin Metroprolol and statin at this time 5. End-stage renal disease. Patient receives hemodialysis Saturday. Patient reports he did receive his dialysis on Saturday. Nephrology services are following 6. Acute on chronic systolic congestive heart failure. BNP 119,[address] Wong per nephrology. Okay to resume patient's home Lasix dose per nephrology. 2-D echo completed showing an EF of 45-50% 7. History of coronary artery disease with stent placement 8. History of chronic proximal atrial fibrillation. Per cardiology eliquis has been DC'd due to low hemoglobin. 9. Diabetes mellitus. Home meds resumed plus sliding scale. Hemoglobin A1c has been ordered 10. Status post kidney transplant in 2011 11. Status post liver transplant 2005 12. Non-Hodgkin's lymphoma in 2006 13. History of hyperlipidemia 14. History of essential hypertension. Patient had episode of hypotension here. Blood pressure has significantly improved. Home meds resumed with parameters 15. Increased weakness. Will consult physical therapy and social work for possible ECF placement upon discharge 16. Anemia of chronic kidney disease. hemoglubin 6.4 today. Per nephrology patient will receive IV iron and 1 unit of PRBCs today. Occult stool has been ordered. No active signs of bleeding at this time. Hemoglobin 7.3. IV iron given 17. Bilateral lower extremity cellulitis. Patient currently on cefepime per infectious disease DVT prophylaxis SCDs, eliquis on hold due to anemia. GI prophylaxis Protonix discussed case with patient's Carmina. Updated on plan of care I performed an examination of the patient and discussed their management with the Nurse Practitioner. I have reviewed the Nurse Practitioner's notes and agree with the documented findings and plan of care
[2018-08-12 16:49] LABS: Glucose,Whole Blood 194 mg/dL (75-99)
[2018-08-12 20:31] LABS: Glucose,Whole Blood 152 mg/dL (75-99)
--- NOTE | 2018-08-12 21:34 | PN ---
PROGRESS NOTE Patient is seen for followup for end-stage renal disease. Currently, he is maintained on hemodialysis on a Saturday, Saturday, Saturday schedule. The patient is sitting up in a bedside chair. He is comfortable. Denies any significant complaints. The blood pressure was 136/62, heart rate 64 per minute. He is afebrile. Examination of the heart S1, S2. Examination of lungs bilateral breath sounds are heard. Basal crackles are heard. No wheezing is heard. Abdomen is soft, distended, nontender. Examination of lower extremity shows edema 3+ bilaterally. Bilateral extremities are wrapped. LABS SHOW: Sodium 135, potassium 4.4, BUN 30, serum creatinine 2.24, hemoglobin 7.3 g/dL, calcium at 7.9. ASSESSMENT: 1. End-stage renal disease, on hemodialysis on a Saturday, Saturday, Saturday schedule. The patient is scheduled for hemodialysis in a.m. 2. Significant fluid overload. We will try UF only tomorrow with UF close to 3-4 L as tolerated. Blood pressure is not significantly low. Hopefully we will be able to get a good amount of fluid off. 3. Volume overload. Continue with the Lasix and increase UF as tolerated tomorrow. 4. History of liver transplant, maintained on Prograf and CellCept. 5. 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 6. Chronic atrial fibrillation maintained on anticoagulation. PLAN: Increase UF to 3-4 L as tolerated tomorrow. MMODL / IJN: [id number] /
--- NOTE | 2018-08-12 23:49 | PN ---
PROGRESS NOTE DATE OF SERVICE: 08/12/2018. REASON FOR FOLLOW UP: Lower extremity cellulitis. INTERVAL HISTORY: The patient is currently afebrile. He is breathing more comfortably. Denies having any chest pain or cough. No abdominal pain or pain to the leg area. PHYSICAL EXAMINATION: Blood pressure is 157/75 with a pulse of 84, temperature 98.9. He is 94% on 2 L nasal cannula. General description is an elderly male up in the chair in no distress. Respiratory system: Unlabored breathing with decreased breath sounds in the bases. No wheeze. HEART: S1, S2. Regular rate and rhythm. Abdomen soft. No tenderness. LAB: Hemoglobin 7.5, white count 5.5, BUN of 30, creatinine of 2.24. DIAGNOSTIC IMPRESSION AND PLAN: Patient with a bilateral lower extremity cellulitis in the middle of the night. The patient is currently covered with continue with Mike wrap to keep the swelling. Hopefully finish therapy with oral Ceftin for discharge. Continue supportive care. MMODL / IJN: [id number] /
[2018-08-13 05:37] LABS: Glucose,Whole Blood 113 mg/dL (75-99)
[2018-08-13 05:44] LABS: Anisocytosis Slight; Basophils % (A) 0 %; Eosinophils # (A) 0.1 k/uL (0-0.7); Eosinophils % (A) 2 %; HCT 27.8 % (39.0-53.0); HGB 8.3 gm/dL (13.0-17.5); Hypochromasia Marked; Lymphocytes # (A) 0.5 k/uL (1.0-4.8); Lymphocytes % (A) 7 %; MCH 26.8 pg (25.0-35.0); MCHC 29.7 g/dL (31.0-37.0); MCV 90.2 fL (80.0-100.0); Mean Platelet Volume 6.7; Monocytes # (A) 0.2 k/uL (0-1.0); Monocytes % (A) 3 %; Neutrophils # (A) 5.7 k/uL (1.3-7.7); Neutrophils % (A) 86 %; Platelet Count 359 k/uL (150-450); Poikilocytosis Slight; RBC 3.08 m/uL (4.30-5.90); RDW 19.5 % (11.5-15.5); WBC 6.7 k/uL (3.8-10.6)
[2018-08-13 05:58] LABS: Albumin 2.3 g/dL (3.5-5.0); Potassium 4.5 mmol/L (3.5-5.1); Total Bilirubin 0.6 mg/dL (0.2-1.3); Total Protein 4.4 g/dL (6.3-8.2)
[2018-08-13] MEDS: INSULN ASP PRT/INSULIN ASPART 100 UNIT/ML 10 ML VIAL SQ SCH ×2 (07:01→22:32)
[2018-08-13] MEDS: INSULIN ASPART (NovoLOG) 100 UNIT/ML VIAL SQ SCH ×3 (07:29→21:30)
[2018-08-13] MEDS: ACETAMINOPHEN TAB 325 MG TAB PO PRN (08:16)
[2018-08-13] MEDS: CHOLECALCIFEROL 1,000 UNIT TAB PO SCH (08:20)
[2018-08-13] MEDS: FUROSEMIDE 80 MG TAB PO SCH ×3 (08:20→22:32)
[2018-08-13] MEDS: ALLOPURINOL 100 MG TAB PO SCH (08:20)
[2018-08-13] MEDS: ATORVASTATIN 20 MG TAB PO SCH (08:20)
[2018-08-13] MEDS: hydrALAZINE HCL 25 MG TAB PO SCH ×2 (08:20→22:30)
[2018-08-13] MEDS: DOCUSATE 100 MG CAP PO SCH ×2 (08:20→22:30)
[2018-08-13] MEDS: ASPIRIN 81 MG PO SCH (08:20)
[2018-08-13] MEDS: PANTOPRAZOLE 40 MG TABLET PO SCH (08:21)
[2018-08-13] MEDS: predniSONE 2.5 MG TAB PO SCH ×2 (08:21→22:31)
[2018-08-13] MEDS: MYCOPHENOLATE MOFETIL 250 MG CAP PO SCH ×2 (08:21→22:32)
[2018-08-13] MEDS: METOPROLOL TARTRATE 50 MG TAB PO SCH ×2 (08:21→22:31)
[2018-08-13] MEDS: TACROLIMUS 1 MG CAP PO SCH ×2 (08:21→22:31)
[2018-08-13] MEDS: MAGNESIUM OXIDE 400 MG TAB PO SCH ×2 (08:21→22:30)
[2018-08-13] MEDS: ceFAZolin IN SWFI 2 GM/20 ML SYRINGE IVP SCH (08:22)
[2018-08-13] MEDS: HEPARIN SODIUM,PORCINE 5,000 UNIT/ML 1 ML VIAL SQ SCH ×2 (08:22→22:33)
--- NOTE | 2018-08-13 10:43 | P.DS ---
Providers Date of admission: 08/05/18 21:39 Expected date of discharge: 08/13/18 Attending physician: Jayla Mahmood Consults: 08/05/18 21:28 Consult Physician Routine Consulting Provider: Vivienne Nava Consult Reason/Comments: chf Do you want consulting provider notified?: Yes Consult Physician Routine Consulting Provider: Kerrie Pham Consult Reason/Comments: dialysis Do you want consulting provider notified?: Yes 08/06/18 01:20 Consult Physician Routine Consulting Provider: Kevin James Consult Reason/Comments: icu patient Do you want consulting provider notified?: Already Contacted 08/10/18 10:12 Consult Physician Routine Consulting Provider: Skyler Benson Consult Reason/Comments: lower extremities cellulitis Do you want consulting provider notified?: Yes Primary care physician: Jayla Mahmood [facility] Course: Discharge diagnosis 1. Abdominal distention and pain clearly related to constipation Abdominal x- ray completed in the ER showing nonacute abdomen. Extensive vascular calcification. Patient was disimpacted by ER physician. Patient having episodes constipation. Patient started on Colace. Dose of lactulose will be given. Patient did have large BM per nursing 08/12/2018 2. Rule out pneumonia. Chest x-ray completed showing new mild infiltrate at the right lung base compared to last exam. No heart failure. There is small right pleural effusion. Dr. James is following for pulmonary. Antibiotics have been DC'd at this time 3. Hypotension. Patient was briefly on Levophed. Blood pressure has improved. Home BP meds resumed parameters. Patient's home dose of hydralazine resumed due to hypertension 4. Elevated troponins. Initial troponin 0.043 0.086 Cardiology has been consulted. Per cardiology continue conservative medical management. Continue aspirin Metroprolol and statin at this time 5. End-stage renal disease. Patient receives hemodialysis Saturday. Patient reports he did receive his dialysis on Saturday. Nephrology services are following. Patient to receive hemodialysis today 6. Acute on chronic systolic congestive heart failure. BNP 119,[address] Wong per nephrology. Okay to resume patient's home Lasix dose per nephrology. 2-D echo completed showing an EF of 45-50% 7. History of coronary artery disease with stent placement 8. History of chronic proximal atrial fibrillation. Per cardiology eliquis has been DC'd due to low hemoglobin. 9. Diabetes mellitus. Home meds resumed plus sliding scale. Globin A1c 7.5. Will resume home meds plus scale coverage 10. Status post kidney transplant in 2011 11. Status post liver transplant 2005 12. Non-Hodgkin's lymphoma in 2006 13. History of hyperlipidemia 14. History of essential hypertension. Patient had episode of hypotension here. Blood pressure has significantly improved. Home meds resumed with parameters 15. Increased weakness. Will consult physical therapy and social work for possible ECF placement upon discharge 16. Anemia of chronic kidney disease. hemoglubin 6.4 today. Per nephrology patient will receive IV iron and 1 unit of PRBCs today. Occult stool has been ordered. No active signs of bleeding at this time. Hemoglobin 7.3. IV iron given. hgb improving to 8.3 17. Bilateral lower extremity cellulitis. Patient currently on cefepime per infectious disease. Per infectious disease continue Mike wrap to keep swelling and patient can be discharged on [facility] Course This is a 72-year-old male patient. Presented to the emergency room multiple vague complaints including constipation. Upon arrival to ER patient was found to be in CHF exacerbation with possible pneumonia. Patient does have a significant past medical history of end-stage renal disease in which she gets hemodialysis Saturday. Additional medical history includes liver and kidney transplant, asthma, heart failure, COPD, diabetes mellitus, hyperlipidemia, GERD, Hypertension, heart cath with stents, atrial fibrillation which she is on eliquis, non-Hodgkin's lymphoma in 2006 and seizures. Chest x- ray completed showing mild infiltrate in the right lung base compared to last exam. No heart failure. There is new small right pleural effusion. Due to patient's complaint of consultation abdominal x-ray completed in ER showing nonacute abdomen and some vascular calcification. EKG completed showing accelerated junctional rhythm. Troponin slightly elevated at 0.043 and 0.07. BNP elevated at 119,000. Cardiology, nephrology and critical care management has been consulted. Patient currently on vancomycin. Patient also briefly on levophed for pressure support but has since been DC'd due to improvement with blood pressure. Patient to get hemodialysis per nephrology today. Case discussed with nephrology Dr. Wong. Okay to resume home dose of Lasix 80 mg 3 times a day per nephrology. At this time patient denies any chest pain or shortness of breath. Patient denies nausea vomiting or diarrhea. Patient denies any urinary burning or frequency. Patient is currently on room air. On 08/07/2018 patient is alert and oriented resting comfortably. Patient's blood pressure has remained stable. Patient underwent hemodialysis yesterday. Patient's hemoglobin 6.4. Eliquis has been DC'd per cardiology. Occult stool ordered. Distribution is complaining of constipation. Will start Colace and give lactulose. Per nursing staff denies any signs of active bleeding at this time. This time patient denies chest pain or shortness of breath. Patient denies nausea vomiting or diarrhea. Patient denies any urinary burning or frequency On 08/08/2018 patient currently sitting up in chair alert and oriented. Patient reports he currently feels much improved. Patient reports he still has not had a bowel movement. Patient did undergo hemodialysis yesterday and received 1 unit of PRBCs. Hemoglobin up to 7.2. Eliquis remains on hold per cardiology. Per nursing staff denies any signs of active bleeding. Patient denies chest pain or shortness breath. Patient denies nausea vomiting or diarrhea. Patient denies any urinary burning or frequency On 08/09/2018 patient is alert and oriented 3 in no apparent distress he is sitting up in a chair, he had a bowel movement yesterday he is eating his meal, he denies any chest pain or shortness of breath no nausea or vomiting no abdominal pain and no urinary symptoms. On 08/10/2018 patient is alert and oriented 3 in no apparent distress eating up in a chair he denies any chest pain or shortness of breath there is no fever or chills no headache or dizziness occasional cough no nausea or vomiting no abdominal pain no diarrhea and no urinary symptoms last bowel movement 2 days ago On 08/11/2018 patient is alert and oriented 3. Patient currently sitting up in chair. Patient denies chest pain or shortness of breath. Patient denies nausea vomiting or diarrhea. Patient denies any urinary burning or frequency. Patient currently on IV cefepime per infectious disease for bilateral lower extremity cellulitis. Discharge planning to rehab possibly . On 08/12/2018 patient's alert and oriented 3 sitting up in chair. This time patient denies chest pain or shortness breath. Patient denies nausea vomiting or diarrhea. Patient is still complaining of some abdominal discomfort due to constipation. Will order lactulose at this time. Patient also maintained on Colace. Patient to be DC'd to [facility] when bed available. Did update patient' s Lacey. On 08/13/2017 patient is alert and oriented 3 with comfortably in bed. Patient denies chest pain or shortness breath. Denies nausea vomiting or diarrhea. Denies any urinary burning or frequency. Patient did have bowel movement yesterday with no signs of active bleeding. Hemoglobin is improving to 8.3. Patient to get hemodialysis today. Possible discharge to [facility] depending upon insurance I performed an examination of the patient and discussed their management with the Nurse Practitioner. I have reviewed the Nurse Practitioner's notes and agree with the documented findings and plan of care Patient Condition at Discharge: Stable Plan - Discharge Summary Discharge Rx Participant: No New Discharge Prescriptions: New Aspirin 81 mg PO DAILY chew Darbepoetin Feliberto [Aranesp] 40 mcg SQ Q7D syringe Docusate [Colace] 100 mg PO BID cap Insulin Aspart [NovoLOG (formulary)] 0 unit SQ ACHS vial Pantoprazole [Protonix] 40 mg PO DAILY tablet. Cephalexin [Keflex] 500 mg PO Q12HR 14 Days #28 cap Continue Atorvastatin [Lipitor] 20 mg PO DAILY Tacrolimus [Prograf] 3 mg PO QAM Allopurinol [Zyloprim] 100 mg PO DAILY Tacrolimus [Prograf] 4 mg PO HS hydrALAZINE HCL [Apresoline] 25 mg PO TID #90 tab Metoprolol Tartrate [Lopressor] 50 mg PO BID Furosemide [Lasix] 80 mg PO TID Mycophenolate Mofetil [Cellcept] 500 mg PO BID Cholecalciferol (Vitamin D3) [Vitamin D3] 2,000 unit PO DAILY Multivitamins, Thera [Multivitamin (formulary)] 1 tab PO DAILY Magnesium Oxide [Mag-Ox] 400 mg PO BID Insulin Aspart Protam & Aspart [NovoLOG MIX 70-30 Flexpen] 15 unit SQ BID predniSONE 2.5 mg PO DAILY HYDROcodone/APAP 10-325MG [[place] 10-325] 1 tab PO TID #9 tab Discontinued Apixaban [Eliquis] 2.5 mg PO BID #60 tablet Calcium Acetate [Phoslo] 667 mg PO DAILY Discharge Medication List Atorvastatin [Lipitor] 20 mg PO DAILY 08/18/14 [History] Tacrolimus [Prograf] 3 mg PO QAM 08/18/14 [History] Allopurinol [Zyloprim] 100 mg PO DAILY 10/10/16 [History] Tacrolimus [Prograf] 4 mg PO HS 11/26/16 [History] hydrALAZINE HCL [Apresoline] 25 mg PO TID #90 tab 11/29/16 [Rx] Metoprolol Tartrate [Lopressor] 50 mg PO BID 12/25/16 [History] Cholecalciferol (Vitamin D3) [Vitamin D3] 2,000 unit PO DAILY 08/05/18 [History] Furosemide [Lasix] 80 mg PO TID 08/05/18 [History] Insulin Aspart Protam & Aspart [NovoLOG MIX 70-30 Flexpen] 15 unit SQ BID [History] Magnesium Oxide [Mag-Ox] 400 mg PO BID 08/05/18 [History] Multivitamins, Thera [Multivitamin (formulary)] 1 tab PO DAILY 08/05/18 [History ] Mycophenolate Mofetil [Cellcept] 500 mg PO BID 08/05/18 [History] predniSONE 2.5 mg PO DAILY 08/05/18 [History] Aspirin 81 mg PO DAILY chew 08/13/18 [Rx] Cephalexin [Keflex] 500 mg PO Q12HR 14 Days #28 cap 08/13/18 [Rx] Darbepoetin Feliberto [Aranesp] 40 mcg SQ Q7D syringe 08/13/18 [Rx] Docusate [Colace] 100 mg PO BID cap 08/13/18 [Rx] HYDROcodone/APAP 10-325MG [[place] 10-325] 1 tab PO TID #9 tab 08/13/18 [Rx] Insulin Aspart [NovoLOG (formulary)] 0 unit SQ ACHS vial 08/13/18 [Rx] Pantoprazole [Protonix] 40 mg PO DAILY tablet. 08/13/18 [Rx] Follow up Appointment(s)/Referral(s): [facility], [NON-STAFF] - Jayla Mahmood MD [Primary Care Provider] - 1-2 days Kerrie Pham MD [STAFF PHYSICIAN] - 1 Week Activity/Diet/Wound Care/Special Instructions: Diet dysphagia level III chopped, consistent carb Activity as tolerated CBC and CMP in 2 days Patient to be followed by Dr. mahmood Discharge Disposition: TRANSFER TO SNF/ECF
[2018-08-13 11:33] LABS: Glucose,Whole Blood 76 mg/dL (75-99)
[2018-08-13] MEDS: MULTIVITAMINS, THERA 1 EACH TAB PO SCH (13:08)
[2018-08-13] MEDS: DARBEPOETIN ALFA 40 MCG/0.4 ML SYRINGE SQ SCH (13:08)
[2018-08-13] MEDS: HYDROcodone/APAP 10-325MG 1 EACH TAB PO PRN (13:11)
[2018-08-13 16:37] LABS: Glucose,Whole Blood 176 mg/dL (75-99)
--- NOTE | 2018-08-13 16:44 | PN ---
PROGRESS NOTE DATE OF SERVICE: 08/13/2018. REASON FOR FOLLOWUP: Lower extremity cellulitis, left greater than right. INTERVAL HISTORY: The patient is currently afebrile. He is breathing more comfortably. Denies having any chest pain, or any cough or abdominal pain or pain to the leg area. Currently being wrapped with an Mike wrap and the patient has been tolerating it and denies any diarrhea with antibiotic therapy. PHYSICAL EXAMINATION: His vital signs are stable. Blood pressure 132/54, pulse of 62, temperature 98.9. He is 96% on room air. General description is an elderly male who is up in the chair in no distress. Respiratory system: Unlabored breathing with decreased breath sounds in the bases. No wheeze. Heart S1, S2. Regular rate and rhythm. Abdomen soft. No tenderness. LABS: Hemoglobin 8.2, white count 6.7, BUN of 41, creatinine 2.59. DIAGNOSTIC IMPRESSION AND PLAN: Patient with bilateral lower extremity cellulitis, left . Patient currently on the cefazolin. He will finish therapy with oral Keflex 500 b.i.d. for another week with close outpatient followup. Continue supportive care. MMODL / IJN: [id number] /
--- NOTE | 2018-08-13 20:11 | PN ---
PROGRESS NOTE The patient is seen for followup for end-stage renal disease. He is sitting up in bed. The patient denies any significant complaints. He is scheduled for dialysis today. We will be mainly doing ultrafiltration for volume overload and significant lower extremity edema. PHYSICAL EXAMINATION: This morning blood pressure was 137/61, heart rate 89 per minute. Patient is afebrile. Examination of the heart S1, S2. Examination of the lungs bilateral breath sounds are heard. Abdomen is soft, nontender. Examination of lower extremities shows edema 3+ bilaterally. FOLLOW UP REP exam is grossly intact. LABS SHOW: Sodium 134, potassium 4.5, hemoglobin 8.3 g/dL. ASSESSMENT: 1. End-stage renal disease, on hemodialysis on a Saturday, Saturday, Saturday schedule. The patient will be dialyzed today. We will try to get more fluid off. 2. Hypervolemia. Expect improvement with hemodialysis today. The patient does have urine output. He is maintained on Lasix which we can continue. 3. Anemia of chronic disease. No active bleeding noted, maintained on Aranesp. 4. Status post liver transplant, maintained on immunosuppressive medications. 5. History of kidney transplant, currently on hemodialysis which was started about 2 months ago. PLAN: Hemodialysis today with increase UF as tolerated. We will do mainly ultrafiltration today. Continue to encourage increased oral intake. MMODL / IJN: [id number] /
[2018-08-13 20:17] LABS: Glucose,Whole Blood 193 mg/dL (75-99)
[2018-08-14] MEDS: HYDROcodone/APAP 10-325MG 1 EACH TAB PO PRN ×3 (00:35→19:50)
[2018-08-14 06:01] LABS: Glucose,Whole Blood 107 mg/dL (75-99)
[2018-08-14] MEDS: hydrALAZINE HCL 25 MG TAB PO SCH ×4 (06:39→20:47)
[2018-08-14] MEDS: INSULN ASP PRT/INSULIN ASPART 100 UNIT/ML 10 ML VIAL SQ SCH ×2 (06:43→18:33)
[2018-08-14 07:47] LABS: Anisocytosis Slight; Basophils % (A) 0 %; Eosinophils # (A) 0.1 k/uL (0-0.7); Eosinophils % (A) 3 %; HCT 27.9 % (39.0-53.0); HGB 7.8 gm/dL (13.0-17.5); Hypochromasia Marked; Lymphocytes # (A) 0.4 k/uL (1.0-4.8); Lymphocytes % (A) 9 %; MCH 25.1 pg (25.0-35.0); MCV 89.6 fL (80.0-100.0); Mean Platelet Volume 7.4; Monocytes # (A) 0.2 k/uL (0-1.0); Monocytes % (A) 5 %; Neutrophils # (A) 4.2 k/uL (1.3-7.7); Neutrophils % (A) 82 %; Platelet Count 352 k/uL (150-450); RBC 3.12 m/uL (4.30-5.90); RDW 19.5 % (11.5-15.5); WBC 5.1 k/uL (3.8-10.6)
[2018-08-14] MEDS: PANTOPRAZOLE 40 MG TABLET PO SCH (08:07)
[2018-08-14] MEDS: ALLOPURINOL 100 MG TAB PO SCH (08:07)
[2018-08-14] MEDS: MULTIVITAMINS, THERA 1 EACH TAB PO SCH (08:07)
[2018-08-14] MEDS: MAGNESIUM OXIDE 400 MG TAB PO SCH ×2 (08:07→20:30)
[2018-08-14] MEDS: ASPIRIN 81 MG PO SCH (08:07)
[2018-08-14] MEDS: CHOLECALCIFEROL 1,000 UNIT TAB PO SCH (08:07)
[2018-08-14] MEDS: ATORVASTATIN 20 MG TAB PO SCH (08:07)
[2018-08-14] MEDS: MYCOPHENOLATE MOFETIL 250 MG CAP PO SCH ×2 (08:08→20:30)
[2018-08-14] MEDS: FUROSEMIDE 80 MG TAB PO SCH ×3 (08:08→20:47)
[2018-08-14] MEDS: HEPARIN SODIUM,PORCINE 5,000 UNIT/ML 1 ML VIAL SQ SCH ×2 (08:08→20:30)
[2018-08-14] MEDS: METOPROLOL TARTRATE 50 MG TAB PO SCH ×2 (08:08→20:30)
[2018-08-14] MEDS: DOCUSATE 100 MG CAP PO SCH ×2 (08:08→20:30)
[2018-08-14] MEDS: predniSONE 2.5 MG TAB PO SCH ×2 (08:09→20:29)
[2018-08-14] MEDS: TACROLIMUS 1 MG CAP PO SCH ×2 (08:09→20:29)
[2018-08-14] MEDS: ceFAZolin IN SWFI 2 GM/20 ML SYRINGE IVP SCH (08:15)
[2018-08-14] MEDS: INSULIN ASPART (NovoLOG) 100 UNIT/ML VIAL SQ SCH ×4 (08:15→20:46)
[2018-08-14 08:17] LABS: Albumin 2.3 g/dL (3.5-5.0); Potassium 5.3 mmol/L (3.5-5.1); Total Bilirubin 0.5 mg/dL (0.2-1.3); Total Protein 4.3 g/dL (6.3-8.2)
[2018-08-14] MEDS ORDERED: SODIUM POLYSTYRENE SULFONATE 15 GM/60 ML BOTTLE PO STA (10:46)
--- NOTE | 2018-08-14 10:49 | P.PN ---
Subjective Progress Note Date: 08/14/18 This is a 72-year-old male patient. Presented to the emergency room multiple vague complaints including constipation. Upon arrival to ER patient was found to be in CHF exacerbation with possible pneumonia. Patient does have a significant past medical history of end-stage renal disease in which she gets hemodialysis Saturday. Additional medical history includes liver and kidney transplant, asthma, heart failure, COPD, diabetes mellitus, hyperlipidemia, GERD, Hypertension, heart cath with stents, atrial fibrillation which she is on eliquis, non-Hodgkin's lymphoma in 2006 and seizures. Chest x- ray completed showing mild infiltrate in the right lung base compared to last exam. No heart failure. There is new small right pleural effusion. Due to patient's complaint of consultation abdominal x-ray completed in ER showing nonacute abdomen and some vascular calcification. EKG completed showing accelerated junctional rhythm. Troponin slightly elevated at 0.043 and 0.07. BNP elevated at 119,000. Cardiology, nephrology and critical care management has been consulted. Patient currently on vancomycin. Patient also briefly on levophed for pressure support but has since been DC'd due to improvement with blood pressure. Patient to get hemodialysis per nephrology today. Case discussed with nephrology Dr. Wong. Okay to resume home dose of Lasix 80 mg 3 times a day per nephrology. At this time patient denies any chest pain or shortness of breath. Patient denies nausea vomiting or diarrhea. Patient denies any urinary burning or frequency. Patient is currently on room air. On 08/07/2018 patient is alert and oriented resting comfortably. Patient's blood pressure has remained stable. Patient underwent hemodialysis yesterday. Patient's hemoglobin 6.4. Eliquis has been DC'd per cardiology. Occult stool ordered. Distribution is complaining of constipation. Will start Colace and give lactulose. Per nursing staff denies any signs of active bleeding at this time. This time patient denies chest pain or shortness of breath. Patient denies nausea vomiting or diarrhea. Patient denies any urinary burning or frequency On 08/08/2018 patient currently sitting up in chair alert and oriented. Patient reports he currently feels much improved. Patient reports he still has not had a bowel movement. Patient did undergo hemodialysis yesterday and received 1 unit of PRBCs. Hemoglobin up to 7.2. Eliquis remains on hold per cardiology. Per nursing staff denies any signs of active bleeding. Patient denies chest pain or shortness breath. Patient denies nausea vomiting or diarrhea. Patient denies any urinary burning or frequency On 08/09/2018 patient is alert and oriented 3 in no apparent distress he is sitting up in a chair, he had a bowel movement yesterday he is eating his meal, he denies any chest pain or shortness of breath no nausea or vomiting no abdominal pain and no urinary symptoms. On 08/10/2018 patient is alert and oriented 3 in no apparent distress eating up in a chair he denies any chest pain or shortness of breath there is no fever or chills no headache or dizziness occasional cough no nausea or vomiting no abdominal pain no diarrhea and no urinary symptoms last bowel movement 2 days ago On 08/11/2018 patient is alert and oriented 3. Patient currently sitting up in chair. Patient denies chest pain or shortness of breath. Patient denies nausea vomiting or diarrhea. Patient denies any urinary burning or frequency. Patient currently on IV cefepime per infectious disease for bilateral lower extremity cellulitis. Discharge planning to rehab possibly [facility]. On 08/12/2018 patient's alert and oriented 3 sitting up in chair. This time patient denies chest pain or shortness breath. Patient denies nausea vomiting or diarrhea. Patient is still complaining of some abdominal discomfort due to constipation. Will order lactulose at this time. Patient also maintained on Colace. Patient to be DC'd to [facility] when bed available. Did update patient' s Lacey. On 08/14/2018 patient's alert and oriented currently sitting up in chair. Patient did receive hemodialysis yesterday. Awaiting on insurance prior for D/ C to [facility]. Discharge complete. Patient did have a bowel movement yesterday. Patient potassium slightly elevated at 5.3 will give 1 dose of Kayexalate. Nephrology services are following. At this time patient denies chest pain or shortness of breath. Patient denies nausea vomiting or diarrhea. Patient denies any urinary burning or frequency Objective - Vital Signs Vital signs: Vital Signs Temp 96.0 F L 08/14/18 08:00 Pulse 63 08/14/18 08:00 Resp 18 08/14/18 08:00 BP 134/58 08/14/18 08:00 Pulse Ox 99 08/14/18 08:00 Intake & Output 08/13/18 08/14/18 08/14/18 18:59 06:59 18:59 Intake Total 100 Output Total 200 330 Balance -100 -330 Weight 80.2 kg Intake: Oral 100 Output: Urine 200 300 Stool 30 Other: Voiding Method Urinal Urinal Urinal # Voids 1 - Exam Head normocephalic Neck supple Lungs diminished bilaterally with scattered rhonchi Heart irregular rate Abdomen is rounded soft nontender Extremities +1 lower extremity edema with ecchymosis to bilateral legs. Legs are currently wrapped in Kerlex - Labs CBC & Chem 7: 08/14/18 06:34 08/14/18 06:34 Labs: Abnormal Lab Results - Last 24 Hours (Table) 08/13/18 08/13/18 08/14/18 Range/Units 16:32 20:13 05:55 RBC (4.30-5.90) m/uL Hgb (13.0-17.5) gm/dL Hct (39.0-53.0) % MCHC (31.0-37.0) g/dL RDW (11.5-15.5) % Lymphocytes # (1.0-4.8) k/uL Sodium (137-145) mmol/L Potassium (3.5-5.1) mmol/L BUN (9-20) mg/dL Creatinine (0.66-1.25) mg/dL POC Glucose (mg/dL) 176 H 193 H 107 H (75-99) mg/dL Calcium (8.4-10.2) mg/dL AST (17-59) U/L ALT (21-72) U/L Alkaline Phosphatase (38-126) U/L Total Protein (6.3-8.2) g/dL Albumin (3.5-5.0) g/dL 08/14/18 08/14/18 Range/Units 06:34 06:34 RBC 3.12 L (4.30-5.90) m/uL Hgb 7.8 L (13.0-17.5) gm/dL Hct 27.9 L (39.0-53.0) % MCHC 28.0 L (31.0-37.0) g/dL RDW 19.5 H (11.5-15.5) % Lymphocytes # 0.4 L (1.0-4.8) k/uL Sodium 133 L (137-145) mmol/L Potassium 5.3 H (3.5-5.1) mmol/L BUN 47 H (9-20) mg/dL Creatinine 2.93 H (0.66-1.25) mg/dL POC Glucose (mg/dL) (75-99) mg/dL Calcium 8.0 L (8.4-10.2) mg/dL AST 15 L (17-59) U/L ALT 16 L (21-72) U/L Alkaline Phosphatase 180 H (38-126) U/L Total Protein 4.3 L (6.3-8.2) g/dL Albumin 2.3 L (3.5-5.0) g/dL Assessment and Plan Assessment: 1. Abdominal distention and pain clearly related to constipation Abdominal x- ray completed in the ER showing nonacute abdomen. Extensive vascular calcification. Patient was disimpacted by ER physician. Patient having episodes constipation. Patient started on Colace. Dose of lactulose will be given 2. Rule out pneumonia. Chest x-ray completed showing new mild infiltrate at the right lung base compared to last exam. No heart failure. There is small right pleural effusion. Dr. James is following for pulmonary. Antibiotics have been DC'd at this time 3. Hypotension. Patient was briefly on Levophed. Blood pressure has improved. Home BP meds resumed parameters. Home dose of hydralazine DC'd due to marginal blood pressure 4. Elevated troponins. Initial troponin 0.043 0.086 Cardiology has been consulted. Per cardiology continue conservative medical management. Continue aspirin Metroprolol and statin at this time 5. End-stage renal disease. Patient receives hemodialysis Saturday. Patient reports he did receive his dialysis on Saturday. Nephrology services are following 6. Acute on chronic systolic congestive heart failure. BNP 119,[address] Wong per nephrology. Okay to resume patient's home Lasix dose per nephrology. 2-D echo completed showing an EF of 45-50% 7. History of coronary artery disease with stent placement 8. History of chronic proximal atrial fibrillation. Per cardiology eliquis has been DC'd due to low hemoglobin. 9. Diabetes mellitus. Home meds resumed plus sliding scale. Hemoglobin A1c has been ordered 10. Status post kidney transplant in 2011 11. Status post liver transplant 2005 12. Non-Hodgkin's lymphoma in 2006 13. History of hyperlipidemia 14. History of essential hypertension. Patient had episode of hypotension here. Blood pressure has significantly improved. Home meds resumed with parameters 15. Increased weakness. Will consult physical therapy and social work for possible ECF placement upon discharge 16. Anemia of chronic kidney disease. hemoglubin 6.4 today. Per nephrology patient will receive IV iron and 1 unit of PRBCs today. Occult stool has been ordered. No active signs of bleeding at this time. Hemoglobin 7.3. IV iron given 17. Bilateral lower extremity cellulitis. Patient currently on cefepime per infectious disease DVT prophylaxis SCDs, eliquis on hold due to anemia. GI prophylaxis Protonix discussed case with patient's lacey. Updated on plan of care awaiting on prior auth for D/C to [facility] I performed an examination of the patient and discussed their management with the Nurse Practitioner. I have reviewed the Nurse Practitioner's notes and agree with the documented findings and plan of care
[2018-08-14 11:36] LABS: Glucose,Whole Blood 62 mg/dL (75-99)
[2018-08-14 12:28] LABS: Glucose,Whole Blood 68 mg/dL (75-99)
[2018-08-14 12:58] LABS: Glucose,Whole Blood 58 mg/dL (75-99)
[2018-08-14 12:58] LABS: Glucose,Whole Blood 59 mg/dL (75-99)
[2018-08-14 13:02] LABS: Glucose,Whole Blood 60 mg/dL (75-99)
--- NOTE | 2018-08-14 13:26 | P.PN ---
Subjective Patient is seen in follow-up for end-stage renal disease. He is maintained on hemodialysis on a Saturday schedule. Remains quite edematous. Patient has a history of liver and kidney transplant. He is maintained on immunosuppression. Currently sitting up in chair. Vital signs are stable. General: The patient appeared well nourished and normally developed. HEENT: Head exam is unremarkable. Neck is without jugular venous distension. LUNGS: Breath sounds decreased. HEART: Rate and Rhythm are regular. First and second heart sounds normal. No murmurs, rubs or gallops. ABDOMEN: Abdominal exam reveals normal bowel sounds. Non-tender and non- distended. No evidence of peritonitis. EXTREMITITES: 2+ edema. Objective - Vital Signs Vital signs: Vital Signs Temp 96.0 F L 08/14/18 08:00 Pulse 61 08/14/18 11:52 Resp 18 08/14/18 11:52 BP 107/55 08/14/18 11:52 Pulse Ox 98 08/14/18 11:52 Intake & Output 08/13/18 08/14/18 08/14/18 18:59 06:59 18:59 Intake Total 100 Output Total 200 330 50 Balance -100 -330 -50 Weight 80.2 kg Intake: Oral 100 Output: Urine 200 300 50 Stool 30 Other: Voiding Method Urinal Urinal Urinal # Voids 1 - Labs CBC & Chem 7: 08/14/18 06:34 08/14/18 06:34 Labs: Abnormal Lab Results - Last 24 Hours (Table) 08/13/18 08/13/18 08/14/18 Range/Units 16:32 20:13 05:55 RBC (4.30-5.90) m/uL Hgb (13.0-17.5) gm/dL Hct (39.0-53.0) % MCHC (31.0-37.0) g/dL RDW (11.5-15.5) % Lymphocytes # (1.0-4.8) k/uL Sodium (137-145) mmol/L Potassium (3.5-5.1) mmol/L BUN (9-20) mg/dL Creatinine (0.66-1.25) mg/dL POC Glucose (mg/dL) 176 H 193 H 107 H (75-99) mg/dL Calcium (8.4-10.2) mg/dL AST (17-59) U/L ALT (21-72) U/L Alkaline Phosphatase (38-126) U/L Total Protein (6.3-8.2) g/dL Albumin (3.5-5.0) g/dL 08/14/18 08/14/18 08/14/18 Range/Units 06:34 06:34 11:35 RBC 3.12 L (4.30-5.90) m/uL Hgb 7.8 L (13.0-17.5) gm/dL Hct 27.9 L (39.0-53.0) % MCHC 28.0 L (31.0-37.0) g/dL RDW 19.5 H (11.5-15.5) % Lymphocytes # 0.4 L (1.0-4.8) k/uL Sodium 133 L (137-145) mmol/L Potassium 5.3 H (3.5-5.1) mmol/L BUN 47 H (9-20) mg/dL Creatinine 2.93 H (0.66-1.25) mg/dL POC Glucose (mg/dL) 62 L (75-99) mg/dL Calcium 8.0 L (8.4-10.2) mg/dL AST 15 L (17-59) U/L ALT 16 L (21-72) U/L Alkaline Phosphatase 180 H (38-126) U/L Total Protein 4.3 L (6.3-8.2) g/dL Albumin 2.3 L (3.5-5.0) g/dL 08/14/18 08/14/18 08/14/18 Range/Units 12:17 12:55 12:56 RBC (4.30-5.90) m/uL Hgb (13.0-17.5) gm/dL Hct (39.0-53.0) % MCHC (31.0-37.0) g/dL RDW (11.5-15.5) % Lymphocytes # (1.0-4.8) k/uL Sodium (137-145) mmol/L Potassium (3.5-5.1) mmol/L BUN (9-20) mg/dL Creatinine (0.66-1.25) mg/dL POC Glucose (mg/dL) 68 L 58 L 59 L (75-99) mg/dL Calcium (8.4-10.2) mg/dL AST (17-59) U/L ALT (21-72) U/L Alkaline Phosphatase (38-126) U/L Total Protein (6.3-8.2) g/dL Albumin (3.5-5.0) g/dL 08/14/18 Range/Units 13:00 RBC (4.30-5.90) m/uL Hgb (13.0-17.5) gm/dL Hct (39.0-53.0) % MCHC (31.0-37.0) g/dL RDW (11.5-15.5) % Lymphocytes # (1.0-4.8) k/uL Sodium (137-145) mmol/L Potassium (3.5-5.1) mmol/L BUN (9-20) mg/dL Creatinine (0.66-1.25) mg/dL POC Glucose (mg/dL) 60 L (75-99) mg/dL Calcium (8.4-10.2) mg/dL AST (17-59) U/L ALT (21-72) U/L Alkaline Phosphatase (38-126) U/L Total Protein (6.3-8.2) g/dL Albumin (3.5-5.0) g/dL Assessment and Plan Plan: Assessment: 1. End-stage renal disease maintained on hemodialysis on a Saturday schedule. 2. Status post donor renal allograft in 2005 from [facility]. 3. Moderate pulmonary hypertension. 4. Systolic CHF with ejection fraction of 40-45 % with severe mitral regurgitation. 5. Chronic atrial fibrillation maintained on anticoagulation. 6. Constipation status post disimpaction in the ER on admission. 7. Insulin-dependent diabetes mellitus. 8. Chronic kidney disease mineral bone disease. Phosphorus low at 2.2 on admission and is 3.1 today. 9. Anemia of chronic kidney disease. Status post blood transfusion yesterday. Iron deficiency noted. Maintained on Aranesp. Status post IV iron. 10. Hyponatremia secondary to chronic kidney disease. Hypervolemic. 11. History of liver transplant. Plan: 2-3 L ultrafiltration only today. Maintain Lasix. Maintain immunosuppression meds. Hemodialysis tomorrow.
[2018-08-14 13:47] LABS: Glucose,Whole Blood 82 mg/dL (75-99)
--- NOTE | 2018-08-14 17:06 | PN ---
PROGRESS NOTE DATE OF SERVICE: 08/14/2018. REASON FOR FOLLOWUP: Bilateral lower extremity cellulitis. INTERVAL HISTORY: The patient is currently afebrile, has been breathing comfortably. Denies having any chest pain or any cough. No abdominal pain or pain to the leg area. PHYSICAL EXAMINATION: Blood pressure 107/55 with a pulse of 51, temperature 97.6. He is 98% on room air. General description is an elderly male lying in bed in no distress. Respiratory system: Unlabored breathing. Clear to auscultation anteriorly. Heart S1, S2. Regular rate. Abdomen soft. No tenderness. Legs currently wrapped up. No obvious drainage on the dressing. LABS: White count 5.1. DIAGNOSTIC IMPRESSION AND PLAN: Patient with bilateral lower extremity swelling with redness with cellulitis, currently covered with Cefazolin. PLAN: Finish therapy with oral Keflex. Continue supportive care. MMODL / IJN: [id number] /
[2018-08-14 17:12] LABS: Glucose,Whole Blood 102 mg/dL (75-99)
[2018-08-14 20:39] LABS: Glucose,Whole Blood 141 mg/dL (75-99)
[2018-08-15] MEDS: HYDROcodone/APAP 10-325MG 1 EACH TAB PO PRN ×3 (01:21→23:14)
[2018-08-15 05:49] LABS: Glucose,Whole Blood 233 mg/dL (75-99)
[2018-08-15 06:37] LABS: Anisocytosis Slight; Basophils % (A) 0 %; Eosinophils # (A) 0.2 k/uL (0-0.7); Eosinophils % (A) 4 %; HCT 26.9 % (39.0-53.0); HGB 7.9 gm/dL (13.0-17.5); Hypochromasia Marked; Lymphocytes # (A) 0.5 k/uL (1.0-4.8); Lymphocytes % (A) 9 %; MCH 26.2 pg (25.0-35.0); MCHC 29.3 g/dL (31.0-37.0); MCV 89.4 fL (80.0-100.0); Mean Platelet Volume 6.6; Monocytes # (A) 0.2 k/uL (0-1.0); Monocytes % (A) 4 %; Neutrophils # (A) 4.5 k/uL (1.3-7.7); Neutrophils % (A) 82 %; Platelet Count 338 k/uL (150-450); RBC 3.01 m/uL (4.30-5.90); RDW 19.4 % (11.5-15.5); WBC 5.4 k/uL (3.8-10.6)
[2018-08-15 07:01] LABS: Albumin 2.3 g/dL (3.5-5.0); Calcium 7.9 mg/dL (8.4-10.2); Potassium 5.9 mmol/L (3.5-5.1); Total Bilirubin 0.5 mg/dL (0.2-1.3); Total Protein 4.4 g/dL (6.3-8.2)
[2018-08-15] MEDS: INSULN ASP PRT/INSULIN ASPART 100 UNIT/ML 10 ML VIAL SQ SCH ×2 (07:05→19:05)
[2018-08-15] MEDS: INSULIN ASPART (NovoLOG) 100 UNIT/ML VIAL SQ SCH ×4 (07:05→21:20)
[2018-08-15] MEDS ORDERED: SODIUM POLYSTYRENE SULFONATE 15 GM/60 ML BOTTLE PO STA (08:18)
[2018-08-15] MEDS: DOCUSATE 100 MG CAP PO SCH ×2 (09:39→21:58)
[2018-08-15] MEDS: METOPROLOL TARTRATE 50 MG TAB PO SCH ×2 (09:39→21:58)
[2018-08-15] MEDS: CHOLECALCIFEROL 1,000 UNIT TAB PO SCH (09:39)
[2018-08-15] MEDS: MAGNESIUM OXIDE 400 MG TAB PO SCH ×2 (09:39→21:58)
[2018-08-15] MEDS: ATORVASTATIN 20 MG TAB PO SCH (09:39)
[2018-08-15] MEDS: ALLOPURINOL 100 MG TAB PO SCH (09:39)
[2018-08-15] MEDS: FUROSEMIDE 80 MG TAB PO SCH ×3 (09:39→23:18)
[2018-08-15] MEDS: ASPIRIN 81 MG PO SCH (09:39)
[2018-08-15] MEDS: PANTOPRAZOLE 40 MG TABLET PO SCH (09:39)
[2018-08-15] MEDS: hydrALAZINE HCL 25 MG TAB PO SCH ×3 (09:39→23:18)
[2018-08-15] MEDS: MYCOPHENOLATE MOFETIL 250 MG CAP PO SCH ×2 (09:40→21:57)
[2018-08-15] MEDS: HEPARIN SODIUM,PORCINE 5,000 UNIT/ML 1 ML VIAL SQ SCH ×2 (09:40→21:59)
[2018-08-15] MEDS: predniSONE 2.5 MG TAB PO SCH ×2 (09:40→21:58)
[2018-08-15] MEDS: TACROLIMUS 1 MG CAP PO SCH ×2 (09:41→21:57)
[2018-08-15] MEDS: ceFAZolin IN SWFI 2 GM/20 ML SYRINGE IVP SCH (09:48)
[2018-08-15 11:07] LABS: Glucose,Whole Blood 96 mg/dL (75-99)
--- NOTE | 2018-08-15 11:35 | P.PN ---
Subjective Progress Note Date: 08/15/18 This is a 72-year-old male patient. Presented to the emergency room multiple vague complaints including constipation. Upon arrival to ER patient was found to be in CHF exacerbation with possible pneumonia. Patient does have a significant past medical history of end-stage renal disease in which she gets hemodialysis Saturday. Additional medical history includes liver and kidney transplant, asthma, heart failure, COPD, diabetes mellitus, hyperlipidemia, GERD, Hypertension, heart cath with stents, atrial fibrillation which she is on eliquis, non-Hodgkin's lymphoma in 2006 and seizures. Chest x- ray completed showing mild infiltrate in the right lung base compared to last exam. No heart failure. There is new small right pleural effusion. Due to patient's complaint of consultation abdominal x-ray completed in ER showing nonacute abdomen and some vascular calcification. EKG completed showing accelerated junctional rhythm. Troponin slightly elevated at 0.043 and 0.07. BNP elevated at 119,000. Cardiology, nephrology and critical care management has been consulted. Patient currently on vancomycin. Patient also briefly on levophed for pressure support but has since been DC'd due to improvement with blood pressure. Patient to get hemodialysis per nephrology today. Case discussed with nephrology Dr. Wong. Okay to resume home dose of Lasix 80 mg 3 times a day per nephrology. At this time patient denies any chest pain or shortness of breath. Patient denies nausea vomiting or diarrhea. Patient denies any urinary burning or frequency. Patient is currently on room air. On 08/07/2018 patient is alert and oriented resting comfortably. Patient's blood pressure has remained stable. Patient underwent hemodialysis yesterday. Patient's hemoglobin 6.4. Eliquis has been DC'd per cardiology. Occult stool ordered. Distribution is complaining of constipation. Will start Colace and give lactulose. Per nursing staff denies any signs of active bleeding at this time. This time patient denies chest pain or shortness of breath. Patient denies nausea vomiting or diarrhea. Patient denies any urinary burning or frequency On 08/08/2018 patient currently sitting up in chair alert and oriented. Patient reports he currently feels much improved. Patient reports he still has not had a bowel movement. Patient did undergo hemodialysis yesterday and received 1 unit of PRBCs. Hemoglobin up to 7.2. Eliquis remains on hold per cardiology. Per nursing staff denies any signs of active bleeding. Patient denies chest pain or shortness breath. Patient denies nausea vomiting or diarrhea. Patient denies any urinary burning or frequency On 08/09/2018 patient is alert and oriented 3 in no apparent distress he is sitting up in a chair, he had a bowel movement yesterday he is eating his meal, he denies any chest pain or shortness of breath no nausea or vomiting no abdominal pain and no urinary symptoms. On 08/10/2018 patient is alert and oriented 3 in no apparent distress eating up in a chair he denies any chest pain or shortness of breath there is no fever or chills no headache or dizziness occasional cough no nausea or vomiting no abdominal pain no diarrhea and no urinary symptoms last bowel movement 2 days ago On 08/11/2018 patient is alert and oriented 3. Patient currently sitting up in chair. Patient denies chest pain or shortness of breath. Patient denies nausea vomiting or diarrhea. Patient denies any urinary burning or frequency. Patient currently on IV cefepime per infectious disease for bilateral lower extremity cellulitis. Discharge planning to rehab possibly [facility]. On 08/12/2018 patient's alert and oriented 3 sitting up in chair. This time patient denies chest pain or shortness breath. Patient denies nausea vomiting or diarrhea. Patient is still complaining of some abdominal discomfort due to constipation. Will order lactulose at this time. Patient also maintained on Colace. Patient to be DC'd to [facility] when bed available. Did update patient' s Lacey. On 08/14/2018 patient's alert and oriented currently sitting up in chair. Patient did receive hemodialysis yesterday. Awaiting on insurance prior for D/ C to [facility]. Discharge complete. Patient did have a bowel movement yesterday. Patient potassium slightly elevated at 5.3 will give 1 dose of Kayexalate. Nephrology services are following. At this time patient denies chest pain or shortness of breath. Patient denies nausea vomiting or diarrhea. Patient denies any urinary burning or frequency On 08/15/2018 patient's alert and oriented resting comfortably in bed. Patient to get hemodialysis today. Potassium 5.9. Discussed with Dr. Pompa per nephrology services. Recommend we just use hemodialysis for treatment no need for kayexlate per nephrology. At this time patient denies chest pain or shortness breath. Patient denies nausea vomiting or diarrhea. Patient denies any urinary burning or frequency. Awaiting insurance authorization for discharge to [facility]. Objective - Vital Signs Vital signs: Vital Signs Temp 97.0 F L 08/15/18 08:00 Pulse 77 08/15/18 08:00 Resp 17 08/15/18 08:00 BP 125/66 08/15/18 08:00 Pulse Ox 94 L 08/15/18 04:00 Intake & Output 08/14/18 08/15/18 08/15/18 18:59 06:59 18:59 Intake Total 480 480 240 Output Total 150 145 10 Balance 330 335 230 Weight 80.2 kg Intake: Oral 480 480 240 Output: Urine 150 125 Stool 20 10 Other: Voiding Method Urinal Urinal Urinal # Voids 2 1 - Exam Head normocephalic Neck supple Lungs diminished bilaterally with scattered rhonchi Heart irregular rate Abdomen is rounded soft nontender Extremities +1 lower extremity edema with ecchymosis to bilateral legs. Legs are currently wrapped in Kerlex - Labs CBC & Chem 7: 08/15/18 05:39 08/15/18 05:39 Labs: Abnormal Lab Results - Last 24 Hours (Table) 08/14/18 08/14/18 08/14/18 Range/Units 11:35 12:17 12:55 RBC (4.30-5.90) m/uL Hgb (13.0-17.5) gm/dL Hct (39.0-53.0) % MCHC (31.0-37.0) g/dL RDW (11.5-15.5) % Lymphocytes # (1.0-4.8) k/uL Sodium (137-145) mmol/L Potassium (3.5-5.1) mmol/L BUN (9-20) mg/dL Creatinine (0.66-1.25) mg/dL Glucose (74-99) mg/dL POC Glucose (mg/dL) 62 L 68 L 58 L (75-99) mg/dL Calcium (8.4-10.2) mg/dL AST (17-59) U/L ALT (21-72) U/L Alkaline Phosphatase (38-126) U/L Total Protein (6.3-8.2) g/dL Albumin (3.5-5.0) g/dL 08/14/18 08/14/18 08/14/18 Range/Units 12:56 13:00 16:39 RBC (4.30-5.90) m/uL Hgb (13.0-17.5) gm/dL Hct (39.0-53.0) % MCHC (31.0-37.0) g/dL RDW (11.5-15.5) % Lymphocytes # (1.0-4.8) k/uL Sodium (137-145) mmol/L Potassium (3.5-5.1) mmol/L BUN (9-20) mg/dL Creatinine (0.66-1.25) mg/dL Glucose (74-99) mg/dL POC Glucose (mg/dL) 59 L 60 L 102 H (75-99) mg/dL Calcium (8.4-10.2) mg/dL AST (17-59) U/L ALT (21-72) U/L Alkaline Phosphatase (38-126) U/L Total Protein (6.3-8.2) g/dL Albumin (3.5-5.0) g/dL 08/14/18 08/15/18 08/15/18 Range/Units 20:37 05:39 05:39 RBC 3.01 L (4.30-5.90) m/uL Hgb 7.9 L (13.0-17.5) gm/dL Hct 26.9 L (39.0-53.0) % MCHC 29.3 L (31.0-37.0) g/dL RDW 19.4 H (11.5-15.5) % Lymphocytes # 0.5 L (1.0-4.8) k/uL Sodium 132 L (137-145) mmol/L Potassium 5.9 H (3.5-5.1) mmol/L BUN 54 H (9-20) mg/dL Creatinine 3.25 H (0.66-1.25) mg/dL Glucose 197 H (74-99) mg/dL POC Glucose (mg/dL) 141 H (75-99) mg/dL Calcium 7.9 L (8.4-10.2) mg/dL AST 14 L (17-59) U/L ALT 16 L (21-72) U/L Alkaline Phosphatase 180 H (38-126) U/L Total Protein 4.4 L (6.3-8.2) g/dL Albumin 2.3 L (3.5-5.0) g/dL 08/15/18 Range/Units 05:48 RBC (4.30-5.90) m/uL Hgb (13.0-17.5) gm/dL Hct (39.0-53.0) % MCHC (31.0-37.0) g/dL RDW (11.5-15.5) % Lymphocytes # (1.0-4.8) k/uL Sodium (137-145) mmol/L Potassium (3.5-5.1) mmol/L BUN (9-20) mg/dL Creatinine (0.66-1.25) mg/dL Glucose (74-99) mg/dL POC Glucose (mg/dL) 233 H (75-99) mg/dL Calcium (8.4-10.2) mg/dL AST (17-59) U/L ALT (21-72) U/L Alkaline Phosphatase (38-126) U/L Total Protein (6.3-8.2) g/dL Albumin (3.5-5.0) g/dL Assessment and Plan Assessment: 1. Abdominal distention and pain clearly related to constipation Abdominal x- ray completed in the ER showing nonacute abdomen. Extensive vascular calcification. Patient was disimpacted by ER physician. Patient having episodes constipation. Patient started on Colace. Dose of lactulose will be given 2. Rule out pneumonia. Chest x-ray completed showing new mild infiltrate at the right lung base compared to last exam. No heart failure. There is small right pleural effusion. Dr. James is following for pulmonary. Antibiotics have been DC'd at this time 3. Hypotension. Patient was briefly on Levophed. Blood pressure has improved. Home BP meds resumed parameters. Home dose of hydralazine DC'd due to marginal blood pressure 4. Elevated troponins. Initial troponin 0.043 0.086 Cardiology has been consulted. Per cardiology continue conservative medical management. Continue aspirin Metroprolol and statin at this time 5. End-stage renal disease. Patient receives hemodialysis Saturday. Patient reports he did receive his dialysis on Saturday. Nephrology services are following 6. Acute on chronic systolic congestive heart failure. BNP 119,[address] Wong per nephrology. Okay to resume patient's home Lasix dose per nephrology. 2-D echo completed showing an EF of 45-50% 7. History of coronary artery disease with stent placement 8. History of chronic proximal atrial fibrillation. Per cardiology eliquis has been DC'd due to low hemoglobin. 9. Diabetes mellitus. Home meds resumed plus sliding scale. Hemoglobin A1c has been ordered 10. Status post kidney transplant in 2011 11. Status post liver transplant 2005 12. Non-Hodgkin's lymphoma in 2006 13. History of hyperlipidemia 14. History of essential hypertension. Patient had episode of hypotension here. Blood pressure has significantly improved. Home meds resumed with parameters 15. Increased weakness. Will consult physical therapy and social work for possible ECF placement upon discharge 16. Anemia of chronic kidney disease. hemoglubin 6.4 today. Per nephrology patient will receive IV iron and 1 unit of PRBCs today. Occult stool has been ordered. No active signs of bleeding at this time. Hemoglobin 7.3. IV iron given 17. Bilateral lower extremity cellulitis. Patient currently on cefepime per infectious disease 18. Hyperkalemia. Potassium 5.9. Discussed with nephrology services. No need for Kayexalate this time per nephrology patient to be hemodialysis today DVT prophylaxis SCDs, eliquis on hold due to anemia. GI prophylaxis Protonix discussed case with patient's lacey. Updated on plan of care awaiting on prior auth for D/C to [facility] I performed an examination of the patient and discussed their management with the Nurse Practitioner. I have reviewed the Nurse Practitioner's notes and agree with the documented findings and plan of care
[2018-08-15] MEDS: MULTIVITAMINS, THERA 1 EACH TAB PO SCH (12:03)
--- NOTE | 2018-08-15 14:16 | PN ---
PROGRESS NOTE Patient is seen for followup for end-stage renal disease. He is scheduled for hemodialysis today. PHYSICAL EXAMINATION: This morning, blood pressure was 115/54, heart rate 66 per minute. He is afebrile. Examination of the heart, S1, S2. Examination of the lungs, bilateral breath sounds are heard. Decreased breath sounds at the bases. Abdomen is soft, distended. Examination of the lower extremities shows edema 3+ bilaterally. LABS: Show sodium 132, potassium 5.9, BUN 54, serum creatinine 3.25, hemoglobin 7.9 g/dL. ASSESSMENT: 1. End-stage renal disease, on hemodialysis on a Saturday, Saturday, Saturday schedule. 2. History of liver transplant, maintained on immunosuppression. 3. Status post donor kidney transplant, currently on hemodialysis. 4. Significant bilateral lower extremity edema, maintained on oral diuretics and we will continue to increase UF as tolerated with hemodialysis. 5. Lower extremity cellulitis, maintained on antibiotics. PLAN: Hemodialysis today. Increase UF as tolerated. Continue with immunosuppression. Currently awaiting discharge to rehab. MMANUPL / IJN: [id number] /
[2018-08-15 15:54] LABS: Glucose,Whole Blood 89 mg/dL (75-99)
[2018-08-15 20:59] LABS: Glucose,Whole Blood 128 mg/dL (75-99)
--- NOTE | 2018-08-16 04:25 | PN ---
PROGRESS NOTE DATE OF SERVICE: 08/15/2018 INTERVAL HISTORY: The patient is currently afebrile, has been breathing comfortably. Denies having any chest pain, shortness of breath or cough. No abdominal pain and no pain in the leg area. EXAMINATION: Blood pressure is 117/51 with a pulse of 82, temperature 99.2, he is 97% on room air. GENERAL DESCRIPTION: An elderly male lying in bed in no distress. RESPIRATORY SYSTEM: Unlabored breathing with decreased breath sounds in the bases. No wheeze. HEART: S1, S2. Regular rate and rhythm. ABDOMEN: Soft, no tenderness. LEGS: Currently wrapped. No obvious draining on the dressing. LABS: White count 5.5 with a BUN 54, creatinine 2.24. DIAGNOSTIC IMPRESSION AND PLAN: Patient with bilateral lower extremity cellulitis ( ). He is currently covered with cefazolin. Mike wrap to keep the swelling down. He will finish therapy with a course of oral antibiotics. Continue supportive care condition. MMODL / IJN: [id number] /
[2018-08-16 06:35] LABS: Glucose,Whole Blood 241 mg/dL (75-99)
[2018-08-16] MEDS: INSULN ASP PRT/INSULIN ASPART 100 UNIT/ML 10 ML VIAL SQ SCH ×2 (07:01→17:56)
[2018-08-16] MEDS: INSULIN ASPART (NovoLOG) 100 UNIT/ML VIAL SQ SCH ×4 (07:01→20:43)
[2018-08-16 07:48] LABS: Anisocytosis Slight; Basophils % (A) 0 %; Eosinophils # (A) 0.2 k/uL (0-0.7); Eosinophils % (A) 3 %; HCT 28.3 % (39.0-53.0); HGB 8.3 gm/dL (13.0-17.5); Hypochromasia Marked; Lymphocytes # (A) 0.5 k/uL (1.0-4.8); Lymphocytes % (A) 8 %; MCH 26.5 pg (25.0-35.0); MCHC 29.2 g/dL (31.0-37.0); Mean Platelet Volume 6.7; Monocytes # (A) 0.2 k/uL (0-1.0); Monocytes % (A) 3 %; Neutrophils # (A) 4.9 k/uL (1.3-7.7); Neutrophils % (A) 83 %; Platelet Count 343 k/uL (150-450); RBC 3.12 m/uL (4.30-5.90); RDW 19.1 % (11.5-15.5); WBC 5.9 k/uL (3.8-10.6)
[2018-08-16] MEDS: FUROSEMIDE 80 MG TAB PO SCH ×3 (08:00→20:42)
[2018-08-16] MEDS: METOPROLOL TARTRATE 50 MG TAB PO SCH ×2 (08:00→20:42)
[2018-08-16] MEDS: ATORVASTATIN 20 MG TAB PO SCH (08:00)
[2018-08-16] MEDS: DOCUSATE 100 MG CAP PO SCH ×2 (08:00→20:42)
[2018-08-16] MEDS: ALLOPURINOL 100 MG TAB PO SCH (08:00)
[2018-08-16] MEDS: hydrALAZINE HCL 25 MG TAB PO SCH ×3 (08:00→20:42)
[2018-08-16] MEDS: MAGNESIUM OXIDE 400 MG TAB PO SCH ×2 (08:00→20:42)
[2018-08-16] MEDS: ASPIRIN 81 MG PO SCH (08:00)
[2018-08-16] MEDS: HEPARIN SODIUM,PORCINE 5,000 UNIT/ML 1 ML VIAL SQ SCH ×2 (08:00→20:42)
[2018-08-16] MEDS: PANTOPRAZOLE 40 MG TABLET PO SCH (08:00)
[2018-08-16] MEDS: CHOLECALCIFEROL 1,000 UNIT TAB PO SCH (08:00)
[2018-08-16 08:16] LABS: Albumin 2.4 g/dL (3.5-5.0); Calcium 7.9 mg/dL (8.4-10.2); Potassium 5.3 mmol/L (3.5-5.1); Total Bilirubin 0.6 mg/dL (0.2-1.3); Total Protein 4.4 g/dL (6.3-8.2)
[2018-08-16] MEDS: predniSONE 2.5 MG TAB PO SCH ×2 (09:44→20:43)
[2018-08-16] MEDS: MYCOPHENOLATE MOFETIL 250 MG CAP PO SCH ×2 (09:44→20:43)
[2018-08-16] MEDS: TACROLIMUS 1 MG CAP PO SCH ×2 (09:45→20:43)
[2018-08-16] MEDS: ceFAZolin IN SWFI 2 GM/20 ML SYRINGE IVP SCH (09:45)
--- NOTE | 2018-08-16 09:58 | P.PN ---
Subjective Patient is seen in follow-up for end-stage renal disease. He is maintained on hemodialysis on a Saturday schedule. Remains quite edematous. Patient has a history of liver and kidney transplant. He is maintained on immunosuppression. Vital signs are stable. General: The patient appeared well nourished and normally developed. HEENT: Head exam is unremarkable. Neck is without jugular venous distension. LUNGS: Breath sounds decreased. HEART: Rate and Rhythm are regular. First and second heart sounds normal. No murmurs, rubs or gallops. ABDOMEN: Abdominal exam reveals normal bowel sounds. Non-tender and non- distended. No evidence of peritonitis. EXTREMITITES: 2+ edema. Objective - Vital Signs Vital signs: Vital Signs Temp 97.5 F L 08/16/18 04:00 Pulse 79 08/16/18 04:00 Resp 19 08/16/18 04:00 BP 134/61 08/16/18 04:00 Pulse Ox 97 08/16/18 04:00 Intake & Output 08/15/18 08/16/18 08/16/18 18:59 06:59 18:59 Intake Total 340 960 Output Total 20 70 Balance 320 890 Weight 75.4 kg Intake: Oral 340 960 Output: Urine 40 Stool 20 30 Other: Voiding Method Urinal Urinal # Voids 2 1 - Labs CBC & Chem 7: 08/16/18 06:32 08/16/18 06:32 Labs: Abnormal Lab Results - Last 24 Hours (Table) 08/15/18 08/16/18 08/16/18 Range/Units 20:53 06:20 06:32 RBC (4.30-5.90) m/uL Hgb (13.0-17.5) gm/dL Hct (39.0-53.0) % MCHC (31.0-37.0) g/dL RDW (11.5-15.5) % Lymphocytes # (1.0-4.8) k/uL Sodium 133 L (137-145) mmol/L Potassium 5.3 H (3.5-5.1) mmol/L BUN 40 H (9-20) mg/dL Creatinine 2.38 H (0.66-1.25) mg/dL Glucose 214 H (74-99) mg/dL POC Glucose (mg/dL) 128 H 241 H (75-99) mg/dL Calcium 7.9 L (8.4-10.2) mg/dL ALT 9 L (21-72) U/L Alkaline Phosphatase 176 H (38-126) U/L Total Protein 4.4 L (6.3-8.2) g/dL Albumin 2.4 L (3.5-5.0) g/dL 08/16/18 Range/Units 06:32 RBC 3.12 L (4.30-5.90) m/uL Hgb 8.3 L (13.0-17.5) gm/dL Hct 28.3 L (39.0-53.0) % MCHC 29.2 L (31.0-37.0) g/dL RDW 19.1 H (11.5-15.5) % Lymphocytes # 0.5 L (1.0-4.8) k/uL Sodium (137-145) mmol/L Potassium (3.5-5.1) mmol/L BUN (9-20) mg/dL Creatinine (0.66-1.25) mg/dL Glucose (74-99) mg/dL POC Glucose (mg/dL) (75-99) mg/dL Calcium (8.4-10.2) mg/dL ALT (21-72) U/L Alkaline Phosphatase (38-126) U/L Total Protein (6.3-8.2) g/dL Albumin (3.5-5.0) g/dL Assessment and Plan Plan: Assessment: 1. End-stage renal disease maintained on hemodialysis on a Saturday schedule. 2. Status post donor renal allograft in 2005 from [facility]. 3. Moderate pulmonary hypertension. 4. Systolic CHF with ejection fraction of 40-45 % with severe mitral regurgitation. 5. Chronic atrial fibrillation maintained on anticoagulation. 6. Constipation status post disimpaction in the ER on admission. 7. Insulin-dependent diabetes mellitus. 8. Chronic kidney disease mineral bone disease. Phosphorus low at 2.2 on admission and is 3.1 today. 9. Anemia of chronic kidney disease. Status post blood transfusion yesterday. Iron deficiency noted. Maintained on Aranesp. Status post IV iron. 10. Hyponatremia secondary to chronic kidney disease. Hypervolemic. 11. History of liver transplant. 12. Hyperkalemia secondary to chronic kidney disease. Better postdialysis. Plan: Short hemodialysis treatment today mostly for ultrafiltration. Maintain Lasix. Maintain immunosuppression meds.
[2018-08-16 11:42] LABS: Glucose,Whole Blood 121 mg/dL (75-99)
[2018-08-16] MEDS: MULTIVITAMINS, THERA 1 EACH TAB PO SCH (11:49)
[2018-08-16] MEDS: HYDROcodone/APAP 10-325MG 1 EACH TAB PO PRN ×2 (15:57→23:18)
--- NOTE | 2018-08-16 16:53 | P.PN ---
Subjective Progress Note Date: 08/16/18 This is a 72-year-old male patient. Presented to the emergency room multiple vague complaints including constipation. Upon arrival to ER patient was found to be in CHF exacerbation with possible pneumonia. Patient does have a significant past medical history of end-stage renal disease in which she gets hemodialysis Saturday. Additional medical history includes liver and kidney transplant, asthma, heart failure, COPD, diabetes mellitus, hyperlipidemia, GERD, Hypertension, heart cath with stents, atrial fibrillation which she is on eliquis, non-Hodgkin's lymphoma in 2006 and seizures. Chest x- ray completed showing mild infiltrate in the right lung base compared to last exam. No heart failure. There is new small right pleural effusion. Due to patient's complaint of consultation abdominal x-ray completed in ER showing nonacute abdomen and some vascular calcification. EKG completed showing accelerated junctional rhythm. Troponin slightly elevated at 0.043 and 0.07. BNP elevated at 119,000. Cardiology, nephrology and critical care management has been consulted. Patient currently on vancomycin. Patient also briefly on levophed for pressure support but has since been DC'd due to improvement with blood pressure. Patient to get hemodialysis per nephrology today. Case discussed with nephrology Dr. Wong. Okay to resume home dose of Lasix 80 mg 3 times a day per nephrology. At this time patient denies any chest pain or shortness of breath. Patient denies nausea vomiting or diarrhea. Patient denies any urinary burning or frequency. Patient is currently on room air. On 08/07/2018 patient is alert and oriented resting comfortably. Patient's blood pressure has remained stable. Patient underwent hemodialysis yesterday. Patient's hemoglobin 6.4. Eliquis has been DC'd per cardiology. Occult stool ordered. Distribution is complaining of constipation. Will start Colace and give lactulose. Per nursing staff denies any signs of active bleeding at this time. This time patient denies chest pain or shortness of breath. Patient denies nausea vomiting or diarrhea. Patient denies any urinary burning or frequency On 08/08/2018 patient currently sitting up in chair alert and oriented. Patient reports he currently feels much improved. Patient reports he still has not had a bowel movement. Patient did undergo hemodialysis yesterday and received 1 unit of PRBCs. Hemoglobin up to 7.2. Eliquis remains on hold per cardiology. Per nursing staff denies any signs of active bleeding. Patient denies chest pain or shortness breath. Patient denies nausea vomiting or diarrhea. Patient denies any urinary burning or frequency On 08/09/2018 patient is alert and oriented 3 in no apparent distress he is sitting up in a chair, he had a bowel movement yesterday he is eating his meal, he denies any chest pain or shortness of breath no nausea or vomiting no abdominal pain and no urinary symptoms. On 08/10/2018 patient is alert and oriented 3 in no apparent distress eating up in a chair he denies any chest pain or shortness of breath there is no fever or chills no headache or dizziness occasional cough no nausea or vomiting no abdominal pain no diarrhea and no urinary symptoms last bowel movement 2 days ago On 08/11/2018 patient is alert and oriented 3. Patient currently sitting up in chair. Patient denies chest pain or shortness of breath. Patient denies nausea vomiting or diarrhea. Patient denies any urinary burning or frequency. Patient currently on IV cefepime per infectious disease for bilateral lower extremity cellulitis. Discharge planning to rehab possibly [facility]. On 08/12/2018 patient's alert and oriented 3 sitting up in chair. This time patient denies chest pain or shortness breath. Patient denies nausea vomiting or diarrhea. Patient is still complaining of some abdominal discomfort due to constipation. Will order lactulose at this time. Patient also maintained on Colace. Patient to be DC'd to [facility] when bed available. Did update patient' s Lacey. On 08/14/2018 patient's alert and oriented currently sitting up in chair. Patient did receive hemodialysis yesterday. Awaiting on insurance prior for D/ C to [facility]. Discharge complete. Patient did have a bowel movement yesterday. Patient potassium slightly elevated at 5.3 will give 1 dose of Kayexalate. Nephrology services are following. At this time patient denies chest pain or shortness of breath. Patient denies nausea vomiting or diarrhea. Patient denies any urinary burning or frequency On 08/15/2018 patient's alert and oriented resting comfortably in bed. Patient to get hemodialysis today. Potassium 5.9. Discussed with Dr. Pompa per nephrology services. Recommend we just use hemodialysis for treatment no need for kayexlate per nephrology. At this time patient denies chest pain or shortness breath. Patient denies nausea vomiting or diarrhea. Patient denies any urinary burning or frequency. Awaiting insurance authorization for discharge to [facility]. On 08/16/2018 patient is alert and oriented 3 in no apparent distress he was seen and examined on the medical floor he is undergoing hemodialysis today there is no fever or chills no headache or dizziness no chest pain no shortness of breath no cough no nausea or vomiting no abdominal pain no diarrhea and no urinary symptoms. At this time we are awaiting transfer to [facility] Objective - Vital Signs Vital signs: Vital Signs Temp 97.3 F L 08/16/18 14:38 Pulse 68 08/16/18 14:38 Resp 16 08/16/18 14:38 BP 130/57 08/16/18 14:38 Pulse Ox 99 08/16/18 14:38 Intake & Output 08/15/18 08/16/18 08/16/18 18:59 06:59 18:59 Intake Total 340 960 600 Output Total 20 70 Balance 320 890 600 Weight 75.4 kg Intake: Oral 340 960 600 Output: Urine 40 Stool 20 30 Other: Voiding Method Urinal Urinal # Voids 2 1 2 - Exam Head normocephalic and atraumatic Neck supple no JVD no goiter Lungs diminished bilaterally with scattered rhonchi Heart irregular rate no gallops no murmurs Abdomen is rounded soft nontender Extremities +1 lower extremity edema with ecchymosis to bilateral legs. Legs are currently wrapped in Kerlex and Mike wraps there is underlying erythema bilateral pretibial area Neurological examination reveals no gross focal deficit - Labs CBC & Chem 7: 08/16/18 06:32 08/16/18 06:32 Labs: Abnormal Lab Results - Last 24 Hours (Table) 08/15/18 08/16/18 08/16/18 Range/Units 20:53 06:20 06:32 RBC (4.30-5.90) m/uL Hgb (13.0-17.5) gm/dL Hct (39.0-53.0) % MCHC (31.0-37.0) g/dL RDW (11.5-15.5) % Lymphocytes # (1.0-4.8) k/uL Sodium 133 L (137-145) mmol/L Potassium 5.3 H (3.5-5.1) mmol/L BUN 40 H (9-20) mg/dL Creatinine 2.38 H (0.66-1.25) mg/dL Glucose 214 H (74-99) mg/dL POC Glucose (mg/dL) 128 H 241 H (75-99) mg/dL Calcium 7.9 L (8.4-10.2) mg/dL ALT 9 L (21-72) U/L Alkaline Phosphatase 176 H (38-126) U/L Total Protein 4.4 L (6.3-8.2) g/dL Albumin 2.4 L (3.5-5.0) g/dL 08/16/18 08/16/18 Range/Units 06:32 11:28 RBC 3.12 L (4.30-5.90) m/uL Hgb 8.3 L (13.0-17.5) gm/dL Hct 28.3 L (39.0-53.0) % MCHC 29.2 L (31.0-37.0) g/dL RDW 19.1 H (11.5-15.5) % Lymphocytes # 0.5 L (1.0-4.8) k/uL Sodium (137-145) mmol/L Potassium (3.5-5.1) mmol/L BUN (9-20) mg/dL Creatinine (0.66-1.25) mg/dL Glucose (74-99) mg/dL POC Glucose (mg/dL) 121 H (75-99) mg/dL Calcium (8.4-10.2) mg/dL ALT (21-72) U/L Alkaline Phosphatase (38-126) U/L Total Protein (6.3-8.2) g/dL Albumin (3.5-5.0) g/dL Assessment and Plan Plan: 1. Abdominal distention and pain clearly related to constipation Abdominal x- ray completed in the ER showing nonacute abdomen. Extensive vascular calcification. Patient was disimpacted by ER physician. Patient having episodes constipation. Patient started on Colace. Dose of lactulose will be given 2. Rule out pneumonia. Chest x-ray completed showing new mild infiltrate at the right lung base compared to last exam. No heart failure. There is small right pleural effusion. Dr. James is following for pulmonary. Antibiotics have been DC'd at this time 3. Hypotension. Patient was briefly on Levophed. Blood pressure has improved. Home BP meds resumed parameters. Home dose of hydralazine DC'd due to marginal blood pressure 4. Elevated troponins. Initial troponin 0.043 0.086 Cardiology has been consulted. Per cardiology continue conservative medical management. Continue aspirin Metroprolol and statin at this time 5. End-stage renal disease. Patient receives hemodialysis Saturday. Patient reports he did receive his dialysis on Saturday. Nephrology services are following 6. Acute on chronic systolic congestive heart failure. BNP 119,[address] Wong per nephrology. Okay to resume patient's home Lasix dose per nephrology. 2-D echo completed showing an EF of 45-50% 7. History of coronary artery disease with stent placement 8. History of chronic proximal atrial fibrillation. Per cardiology eliquis has been DC'd due to low hemoglobin. 9. Diabetes mellitus. Home meds resumed plus sliding scale. Hemoglobin A1c has been ordered 10. Status post kidney transplant in 2011 11. Status post liver transplant 2005 12. Non-Hodgkin's lymphoma in 2006 13. History of hyperlipidemia 14. History of essential hypertension. Patient had episode of hypotension here. Blood pressure has significantly improved. Home meds resumed with parameters 15. Increased weakness. Will consult physical therapy and social work for possible ECF placement upon discharge 16. Anemia of chronic kidney disease. hemoglubin 6.4 today. Per nephrology patient will receive IV iron and 1 unit of PRBCs today. Occult stool has been ordered. No active signs of bleeding at this time. Hemoglobin 7.3. IV iron given 17. Bilateral lower extremity cellulitis. Patient currently on cefepime per infectious disease 18. Hyperkalemia. Potassium 5.9. Discussed with nephrology services. No need for Kayexalate this time per nephrology patient to be hemodialysis today DVT prophylaxis SCDs, eliquis on hold due to anemia. GI prophylaxis Protonix discussed case with patient's lacey. Updated on plan of care awaiting on prior auth for D/C to [facility]
[2018-08-16 17:25] LABS: Glucose,Whole Blood 119 mg/dL (75-99)
[2018-08-16 20:35] LABS: Glucose,Whole Blood 77 mg/dL (75-99)
[2018-08-16] MEDS: CEPHALEXIN 500 MG CAP PO SCH (23:18)
--- NOTE | 2018-08-16 23:23 | PN ---
PROGRESS NOTE DATE OF SERVICE: 08/16/2018. REASON FOR FOLLOWUP: Bilateral lower extremity cellulitis. INTERVAL HISTORY: The patient is currently afebrile. He has been breathing comfortably. Denies having any chest pain or cough. No abdominal pain. No diarrhea. PHYSICAL EXAMINATION: Blood pressure is 130/57 with a pulse of 68, temperature 97.3. He is 99% on room air. General description is an elderly male up in the bed in no distress. Respiratory system: Unlabored breathing. Decreased breath sounds in the bases. No wheeze. Heart S1, S2. Regular rate and rhythm. ABDOMEN: Soft. No tenderness. Legs: Currently wrapped up. No obvious drainage on the dressing. LABS: Hemoglobin 8.0, white count 5.9, BUN 43, creatinine 2.38. DIAGNOSTIC IMPRESSION AND PLAN: Patient with bilateral lower extremity cellulitis. The patient discontinue. Start the patient on oral Keflex, short course. Also recommend discontinue the left IJ to decrease risk of line sepsis. Continue supportive care. MMODL / IJN: [id number] /
[2018-08-16 23:33] LABS: Hepatitis B Surface AB- Quant 3.5 mIU/mL
[2018-08-17] MEDS: HYDROcodone/APAP 10-325MG 1 EACH TAB PO PRN ×2 (06:24→22:27)
[2018-08-17 07:10] LABS: Glucose,Whole Blood 90 mg/dL (75-99)
[2018-08-17] MEDS: INSULIN ASPART (NovoLOG) 100 UNIT/ML VIAL SQ SCH ×4 (07:49→21:33)
[2018-08-17 08:18] LABS: Anisocytosis Slight; Basophils % (A) 0 %; Eosinophils # (A) 0.2 k/uL (0-0.7); Eosinophils % (A) 3 %; HCT 27.6 % (39.0-53.0); HGB 7.9 gm/dL (13.0-17.5); Hypochromasia Marked; Lymphocytes # (A) 0.5 k/uL (1.0-4.8); Lymphocytes % (A) 8 %; MCH 25.5 pg (25.0-35.0); MCHC 28.5 g/dL (31.0-37.0); MCV 89.4 fL (80.0-100.0); Monocytes # (A) 0.3 k/uL (0-1.0); Monocytes % (A) 5 %; Neutrophils # (A) 4.9 k/uL (1.3-7.7); Neutrophils % (A) 81 %; Platelet Count 344 k/uL (150-450); RBC 3.09 m/uL (4.30-5.90); RDW 19.1 % (11.5-15.5); WBC 6.1 k/uL (3.8-10.6)
[2018-08-17] MEDS: INSULN ASP PRT/INSULIN ASPART 100 UNIT/ML 10 ML VIAL SQ SCH ×2 (08:33→17:53)
[2018-08-17 08:34] LABS: Albumin 2.2 g/dL (3.5-5.0); Potassium 5.1 mmol/L (3.5-5.1); Total Bilirubin 0.5 mg/dL (0.2-1.3); Total Protein 4.3 g/dL (6.3-8.2)
[2018-08-17] MEDS: hydrALAZINE HCL 25 MG TAB PO SCH ×3 (08:34→21:37)
[2018-08-17] MEDS: ASPIRIN 81 MG PO SCH (08:34)
[2018-08-17] MEDS: FUROSEMIDE 80 MG TAB PO SCH ×3 (08:34→21:37)
[2018-08-17] MEDS: ALLOPURINOL 100 MG TAB PO SCH (08:34)
[2018-08-17] MEDS: ATORVASTATIN 20 MG TAB PO SCH (08:34)
[2018-08-17] MEDS: CEPHALEXIN 500 MG CAP PO SCH ×2 (08:34→21:32)
[2018-08-17] MEDS: PANTOPRAZOLE 40 MG TABLET PO SCH (08:34)
[2018-08-17] MEDS: CHOLECALCIFEROL 1,000 UNIT TAB PO SCH (08:34)
[2018-08-17] MEDS: MAGNESIUM OXIDE 400 MG TAB PO SCH ×2 (08:35→21:34)
[2018-08-17] MEDS: METOPROLOL TARTRATE 50 MG TAB PO SCH ×2 (08:35→21:34)
[2018-08-17] MEDS: HEPARIN SODIUM,PORCINE 5,000 UNIT/ML 1 ML VIAL SQ SCH ×2 (08:35→21:33)
[2018-08-17] MEDS: DOCUSATE 100 MG CAP PO SCH ×2 (08:35→21:33)
[2018-08-17] MEDS: predniSONE 2.5 MG TAB PO SCH ×2 (09:13→21:36)
[2018-08-17] MEDS: TACROLIMUS 1 MG CAP PO SCH ×2 (09:13→21:36)
[2018-08-17] MEDS: MYCOPHENOLATE MOFETIL 250 MG CAP PO SCH ×2 (09:14→21:35)
--- NOTE | 2018-08-17 10:11 | P.PN ---
Subjective Patient is seen in follow-up for end-stage renal disease. He is maintained on hemodialysis on a Saturday schedule. Edema better today. He underwent extra treatment of hemodialysis yesterday mostly for ultrafiltration. Patient has a history of liver and kidney transplant. He is maintained on immunosuppression. Vital signs are stable. General: The patient appeared well nourished and normally developed. HEENT: Head exam is unremarkable. Neck is without jugular venous distension. LUNGS: Breath sounds decreased. HEART: Rate and Rhythm are regular. First and second heart sounds normal. No murmurs, rubs or gallops. ABDOMEN: Abdominal exam reveals normal bowel sounds. Non-tender and non- distended. No evidence of peritonitis. EXTREMITITES: 1+ edema. Objective - Vital Signs Vital signs: Vital Signs Temp 98.3 F 08/17/18 05:35 Pulse 63 08/17/18 05:35 Resp 20 08/17/18 05:35 BP 149/73 08/17/18 05:35 Pulse Ox 99 08/17/18 05:35 Intake & Output 08/16/18 08/17/18 08/17/18 18:59 06:59 18:59 Intake Total 600 550 Balance 600 550 Weight 73 kg Intake: Oral 600 550 Other: Voiding Method Urinal # Voids 2 3 - Labs CBC & Chem 7: 08/17/18 07:55 08/17/18 07:55 Labs: Abnormal Lab Results - Last 24 Hours (Table) 08/16/18 08/16/18 08/17/18 Range/Units 11:28 17:00 07:55 RBC 3.09 L (4.30-5.90) m/uL Hgb 7.9 L (13.0-17.5) gm/dL Hct 27.6 L (39.0-53.0) % MCHC 28.5 L (31.0-37.0) g/dL RDW 19.1 H (11.5-15.5) % Lymphocytes # 0.5 L (1.0-4.8) k/uL Sodium (137-145) mmol/L BUN (9-20) mg/dL Creatinine (0.66-1.25) mg/dL POC Glucose (mg/dL) 121 H 119 H (75-99) mg/dL Calcium (8.4-10.2) mg/dL AST (17-59) U/L ALT (21-72) U/L Alkaline Phosphatase (38-126) U/L Total Protein (6.3-8.2) g/dL Albumin (3.5-5.0) g/dL 08/17/18 Range/Units 07:55 RBC (4.30-5.90) m/uL Hgb (13.0-17.5) gm/dL Hct (39.0-53.0) % MCHC (31.0-37.0) g/dL RDW (11.5-15.5) % Lymphocytes # (1.0-4.8) k/uL Sodium 133 L (137-145) mmol/L BUN 34 H (9-20) mg/dL Creatinine 2.12 H (0.66-1.25) mg/dL POC Glucose (mg/dL) (75-99) mg/dL Calcium 8.0 L (8.4-10.2) mg/dL AST 14 L (17-59) U/L ALT 16 L (21-72) U/L Alkaline Phosphatase 146 H (38-126) U/L Total Protein 4.3 L (6.3-8.2) g/dL Albumin 2.2 L (3.5-5.0) g/dL Assessment and Plan Plan: Assessment: 1. End-stage renal disease maintained on hemodialysis on a Saturday schedule. 2. Status post donor renal allograft in 2005 from [facility]. 3. Moderate pulmonary hypertension. 4. Systolic CHF with ejection fraction of 40-45 % with severe mitral regurgitation. 5. Chronic atrial fibrillation maintained on anticoagulation. 6. Constipation status post disimpaction in the ER on admission. 7. Insulin-dependent diabetes mellitus. 8. Chronic kidney disease mineral bone disease. Phosphorus low at 2.2 on admission and is 3.1 today. 9. Anemia of chronic kidney disease. Status post blood transfusion yesterday. Iron deficiency noted. Maintained on Aranesp. Status post IV iron. 10. Hyponatremia secondary to chronic kidney disease. Hypervolemic. 11. History of liver transplant. 12. Hyperkalemia secondary to chronic kidney disease. Better postdialysis. Plan: Hemodialysis tomorrow. Maintain Lasix. Maintain immunosuppression meds.
[2018-08-17 11:35] LABS: Glucose,Whole Blood 159 mg/dL (75-99)
[2018-08-17] MEDS: MULTIVITAMINS, THERA 1 EACH TAB PO SCH (11:53)
--- NOTE | 2018-08-17 15:42 | P.PN ---
Subjective Progress Note Date: 08/17/18 This is a 72-year-old male patient. Presented to the emergency room multiple vague complaints including constipation. Upon arrival to ER patient was found to be in CHF exacerbation with possible pneumonia. Patient does have a significant past medical history of end-stage renal disease in which she gets hemodialysis Saturday. Additional medical history includes liver and kidney transplant, asthma, heart failure, COPD, diabetes mellitus, hyperlipidemia, GERD, Hypertension, heart cath with stents, atrial fibrillation which she is on eliquis, non-Hodgkin's lymphoma in 2006 and seizures. Chest x- ray completed showing mild infiltrate in the right lung base compared to last exam. No heart failure. There is new small right pleural effusion. Due to patient's complaint of consultation abdominal x-ray completed in ER showing nonacute abdomen and some vascular calcification. EKG completed showing accelerated junctional rhythm. Troponin slightly elevated at 0.043 and 0.07. BNP elevated at 119,000. Cardiology, nephrology and critical care management has been consulted. Patient currently on vancomycin. Patient also briefly on levophed for pressure support but has since been DC'd due to improvement with blood pressure. Patient to get hemodialysis per nephrology today. Case discussed with nephrology Dr. Wong. Okay to resume home dose of Lasix 80 mg 3 times a day per nephrology. At this time patient denies any chest pain or shortness of breath. Patient denies nausea vomiting or diarrhea. Patient denies any urinary burning or frequency. Patient is currently on room air. On 08/07/2018 patient is alert and oriented resting comfortably. Patient's blood pressure has remained stable. Patient underwent hemodialysis yesterday. Patient's hemoglobin 6.4. Eliquis has been DC'd per cardiology. Occult stool ordered. Distribution is complaining of constipation. Will start Colace and give lactulose. Per nursing staff denies any signs of active bleeding at this time. This time patient denies chest pain or shortness of breath. Patient denies nausea vomiting or diarrhea. Patient denies any urinary burning or frequency On 08/08/2018 patient currently sitting up in chair alert and oriented. Patient reports he currently feels much improved. Patient reports he still has not had a bowel movement. Patient did undergo hemodialysis yesterday and received 1 unit of PRBCs. Hemoglobin up to 7.2. Eliquis remains on hold per cardiology. Per nursing staff denies any signs of active bleeding. Patient denies chest pain or shortness breath. Patient denies nausea vomiting or diarrhea. Patient denies any urinary burning or frequency On 08/09/2018 patient is alert and oriented 3 in no apparent distress he is sitting up in a chair, he had a bowel movement yesterday he is eating his meal, he denies any chest pain or shortness of breath no nausea or vomiting no abdominal pain and no urinary symptoms. On 08/10/2018 patient is alert and oriented 3 in no apparent distress eating up in a chair he denies any chest pain or shortness of breath there is no fever or chills no headache or dizziness occasional cough no nausea or vomiting no abdominal pain no diarrhea and no urinary symptoms last bowel movement 2 days ago On 08/11/2018 patient is alert and oriented 3. Patient currently sitting up in chair. Patient denies chest pain or shortness of breath. Patient denies nausea vomiting or diarrhea. Patient denies any urinary burning or frequency. Patient currently on IV cefepime per infectious disease for bilateral lower extremity cellulitis. Discharge planning to rehab possibly [facility]. On 08/12/2018 patient's alert and oriented 3 sitting up in chair. This time patient denies chest pain or shortness breath. Patient denies nausea vomiting or diarrhea. Patient is still complaining of some abdominal discomfort due to constipation. Will order lactulose at this time. Patient also maintained on Colace. Patient to be DC'd to [facility] when bed available. Did update patient' s Lacey. On 08/14/2018 patient's alert and oriented currently sitting up in chair. Patient did receive hemodialysis yesterday. Awaiting on insurance prior for D/ C to [facility]. Discharge complete. Patient did have a bowel movement yesterday. Patient potassium slightly elevated at 5.3 will give 1 dose of Kayexalate. Nephrology services are following. At this time patient denies chest pain or shortness of breath. Patient denies nausea vomiting or diarrhea. Patient denies any urinary burning or frequency On 08/15/2018 patient's alert and oriented resting comfortably in bed. Patient to get hemodialysis today. Potassium 5.9. Discussed with Dr. Pompa per nephrology services. Recommend we just use hemodialysis for treatment no need for kayexlate per nephrology. At this time patient denies chest pain or shortness breath. Patient denies nausea vomiting or diarrhea. Patient denies any urinary burning or frequency. Awaiting insurance authorization for discharge to [facility]. On 08/16/2018 patient is alert and oriented 3 in no apparent distress he was seen and examined on the medical floor he is undergoing hemodialysis today there is no fever or chills no headache or dizziness no chest pain no shortness of breath no cough no nausea or vomiting no abdominal pain no diarrhea and no urinary symptoms. At this time we are awaiting transfer to senior care. On 08/17/2018 patient was seen and examined on the medical floor he is alert and oriented 3 in no apparent distress triple-lumen catheter was removed from the left neck area there is no fever or chills no headache no dizziness no chest pain no shortness of breath no cough no nausea or vomiting no abdominal pain no diarrhea and no urinary symptoms Objective - Vital Signs Vital signs: Vital Signs Temp 97.9 F 08/17/18 14:40 Pulse 77 08/17/18 14:40 Resp 16 08/17/18 14:40 BP 119/56 08/17/18 14:40 Pulse Ox 96 08/17/18 14:40 Intake & Output 08/16/18 08/17/18 08/17/18 18:59 06:59 18:59 Intake Total 600 550 Balance 600 550 Weight 73 kg Intake: Oral 600 550 Other: Voiding Method Urinal Urinal # Voids 2 3 - Exam Head normocephalic and atraumatic Neck supple no JVD no goiter Lungs diminished bilaterally with scattered rhonchi Heart irregular rate no gallops no murmurs Abdomen is rounded soft nontender Extremities +1 lower extremity edema with ecchymosis to bilateral legs. Legs are currently wrapped in Kerlex and Mike wraps there is underlying erythema bilateral pretibial area Neurological examination reveals no gross focal deficit - Labs CBC & Chem 7: 08/17/18 07:55 08/17/18 07:55 Labs: Abnormal Lab Results - Last 24 Hours (Table) 08/16/18 08/17/18 08/17/18 Range/Units 17:00 07:55 07:55 RBC 3.09 L (4.30-5.90) m/uL Hgb 7.9 L (13.0-17.5) gm/dL Hct 27.6 L (39.0-53.0) % MCHC 28.5 L (31.0-37.0) g/dL RDW 19.1 H (11.5-15.5) % Lymphocytes # 0.5 L (1.0-4.8) k/uL Sodium 133 L (137-145) mmol/L BUN 34 H (9-20) mg/dL Creatinine 2.12 H (0.66-1.25) mg/dL POC Glucose (mg/dL) 119 H (75-99) mg/dL Calcium 8.0 L (8.4-10.2) mg/dL AST 14 L (17-59) U/L ALT 16 L (21-72) U/L Alkaline Phosphatase 146 H (38-126) U/L Total Protein 4.3 L (6.3-8.2) g/dL Albumin 2.2 L (3.5-5.0) g/dL 08/17/18 Range/Units 11:32 RBC (4.30-5.90) m/uL Hgb (13.0-17.5) gm/dL Hct (39.0-53.0) % MCHC (31.0-37.0) g/dL RDW (11.5-15.5) % Lymphocytes # (1.0-4.8) k/uL Sodium (137-145) mmol/L BUN (9-20) mg/dL Creatinine (0.66-1.25) mg/dL POC Glucose (mg/dL) 159 H (75-99) mg/dL Calcium (8.4-10.2) mg/dL AST (17-59) U/L ALT (21-72) U/L Alkaline Phosphatase (38-126) U/L Total Protein (6.3-8.2) g/dL Albumin (3.5-5.0) g/dL Assessment and Plan Plan: 1. Abdominal distention and pain clearly related to constipation Abdominal x- ray completed in the ER showing nonacute abdomen. Extensive vascular calcification. Patient was disimpacted by ER physician. Patient having episodes constipation. Patient started on Colace. Dose of lactulose will be given 2. Rule out pneumonia. Chest x-ray completed showing new mild infiltrate at the right lung base compared to last exam. No heart failure. There is small right pleural effusion. Dr. James is following for pulmonary. Antibiotics have been DC'd at this time 3. Hypotension. Patient was briefly on Levophed. Blood pressure has improved. Home BP meds resumed parameters. Home dose of hydralazine DC'd due to marginal blood pressure 4. Elevated troponins. Initial troponin 0.043 0.086 Cardiology has been consulted. Per cardiology continue conservative medical management. Continue aspirin Metroprolol and statin at this time 5. End-stage renal disease. Patient receives hemodialysis Saturday. Patient reports he did receive his dialysis on Saturday. Nephrology services are following 6. Acute on chronic systolic congestive heart failure. BNP 119,[address] Wong per nephrology. Okay to resume patient's home Lasix dose per nephrology. 2-D echo completed showing an EF of 45-50% 7. History of coronary artery disease with stent placement 8. History of chronic proximal atrial fibrillation. Per cardiology eliquis has been DC'd due to low hemoglobin. 9. Diabetes mellitus. Home meds resumed plus sliding scale. Hemoglobin A1c has been ordered 10. Status post kidney transplant in 2011 11. Status post liver transplant 2005 12. Non-Hodgkin's lymphoma in 2006 13. History of hyperlipidemia 14. History of essential hypertension. Patient had episode of hypotension here. Blood pressure has significantly improved. Home meds resumed with parameters 15. Increased weakness. Will consult physical therapy and social work for possible ECF placement upon discharge 16. Anemia of chronic kidney disease. hemoglubin 6.4 today. Per nephrology patient will receive IV iron and 1 unit of PRBCs today. Occult stool has been ordered. No active signs of bleeding at this time. Hemoglobin 7.3. IV iron given 17. Bilateral lower extremity cellulitis. Patient currently on cefepime per infectious disease 18. Hyperkalemia. Potassium 5.9. Discussed with nephrology services. No need for Kayexalate this time per nephrology patient to be hemodialysis today DVT prophylaxis SCDs, eliquis on hold due to anemia. GI prophylaxis Protonix discussed case with patient's lacey. Updated on plan of care awaiting on prior auth for D/C to [facility]
[2018-08-17 16:53] LABS: Glucose,Whole Blood 201 mg/dL (75-99)
[2018-08-17 20:45] LABS: Glucose,Whole Blood 175 mg/dL (75-99)
--- NOTE | 2018-08-18 00:39 | PN ---
PROGRESS NOTE DATE OF SERVICE: 08/17/2018. REASON FOR FOLLOWUP: Lower extremity cellulitis. INTERVAL HISTORY: The patient is afebrile has been breathing comfortably. Hemodynamically stable. The patient has been discontinued. No nausea, vomiting or diarrhea. PHYSICAL EXAMINATION: Blood pressure 119/56, pulse of 77, temperature 97.9. He is 96% on room air. General description is an elderly male lying in bed in no distress. Respiratory system: Unlabored breathing. Decreased breath sounds in the base, no wheeze. Heart S1-S2 regular rate and rhythm. ABDOMEN: Soft, no tenderness. LEGS: Currently wrapped up. No obvious drainage on the dressing. LABS: Hemoglobin 7.9 with white count 6.1. BUN of 34, creatinine is 2.12. DIAGNOSTIC IMPRESSION AND PLAN: Patient with left lower extremity cellulitis. Patient did a short course of oral Keflex along with Mike wraps to keep the swelling down. Continue supportive care. MMODL / IJN: [id number] /
[2018-08-18 05:48] VITALS: TEMP 97.3
[2018-08-18 07:21] LABS: Glucose,Whole Blood 73 mg/dL (75-99)
[2018-08-18] MEDS: INSULIN ASPART (NovoLOG) 100 UNIT/ML VIAL SQ SCH ×2 (08:12→13:07)
[2018-08-18] MEDS: hydrALAZINE HCL 25 MG TAB PO SCH (08:50)
[2018-08-18] MEDS: HEPARIN SODIUM,PORCINE 5,000 UNIT/ML 1 ML VIAL SQ SCH (08:51)
[2018-08-18] MEDS: CHOLECALCIFEROL 1,000 UNIT TAB PO SCH (08:51)
[2018-08-18] MEDS: CEPHALEXIN 500 MG CAP PO SCH (08:51)
[2018-08-18] MEDS: MAGNESIUM OXIDE 400 MG TAB PO SCH (08:51)
[2018-08-18] MEDS: PANTOPRAZOLE 40 MG TABLET PO SCH (08:51)
[2018-08-18] MEDS: ALLOPURINOL 100 MG TAB PO SCH (08:51)
[2018-08-18] MEDS: INSULN ASP PRT/INSULIN ASPART 100 UNIT/ML 10 ML VIAL SQ SCH (08:51)
[2018-08-18] MEDS: ATORVASTATIN 20 MG TAB PO SCH (08:51)
[2018-08-18] MEDS: MULTIVITAMINS, THERA 1 EACH TAB PO SCH (08:51)
[2018-08-18] MEDS: ASPIRIN 81 MG PO SCH (08:51)
[2018-08-18] MEDS: DOCUSATE 100 MG CAP PO SCH (08:52)
[2018-08-18] MEDS: FUROSEMIDE 80 MG TAB PO SCH (08:52)
[2018-08-18] MEDS: METOPROLOL TARTRATE 50 MG TAB PO SCH (08:52)
[2018-08-18] MEDS: predniSONE 2.5 MG TAB PO SCH (09:07)
[2018-08-18] MEDS: MYCOPHENOLATE MOFETIL 250 MG CAP PO SCH (09:07)
[2018-08-18] MEDS: TACROLIMUS 1 MG CAP PO SCH (09:08)
[2018-08-18] MEDS: HYDROcodone/APAP 10-325MG 1 EACH TAB PO PRN (09:08)
[2018-08-18 10:06] LABS: Anisocytosis Slight; Basophils % (A) 0 %; Eosinophils # (A) 0.1 k/uL (0-0.7); Eosinophils % (A) 1 %; HCT 27.3 % (39.0-53.0); HGB 7.8 gm/dL (13.0-17.5); Hypochromasia Marked; Lymphocytes # (A) 0.4 k/uL (1.0-4.8); Lymphocytes % (A) 5 %; MCH 25.2 pg (25.0-35.0); MCHC 28.5 g/dL (31.0-37.0); MCV 88.2 fL (80.0-100.0); Mean Platelet Volume 7.1; Monocytes # (A) 0.3 k/uL (0-1.0); Monocytes % (A) 5 %; Neutrophils # (A) 6.2 k/uL (1.3-7.7); Neutrophils % (A) 87 %; Platelet Count 390 k/uL (150-450); WBC 7.2 k/uL (3.8-10.6)
[2018-08-18] MEDS ORDERED: LACTULOSE 20 GM/30 ML CUP PO ONE (10:12)
[2018-08-18] MEDS ORDERED: NA PHOS,M-B/NA PHOS,DI-BA 133 ML ENEMA RECTAL PRN (10:12)
[2018-08-18 10:15] LABS: Albumin 2.4 g/dL (3.5-5.0); Calcium 8.2 mg/dL (8.4-10.2); Potassium 5.2 mmol/L (3.5-5.1); Total Bilirubin 0.5 mg/dL (0.2-1.3); Total Protein 4.5 g/dL (6.3-8.2)
[2018-08-18 10:39] VITALS: BMI 25.9
[2018-08-18 12:19] LABS: Glucose,Whole Blood 69 mg/dL (75-99)
--- NOTE | 2018-08-18 12:26 | P.DS ---
Providers Date of admission: 08/05/18 21:39 Expected date of discharge: 08/18/18 Attending physician: Jayla Mahmood Consults: 08/05/18 21:28 Consult Physician Routine Consulting Provider: Vivienne Nava Consult Reason/Comments: chf Do you want consulting provider notified?: Yes Consult Physician Routine Consulting Provider: Kerrie Pham Consult Reason/Comments: dialysis Do you want consulting provider notified?: Yes 08/06/18 01:20 Consult Physician Routine Consulting Provider: Kevin James Consult Reason/Comments: icu patient Do you want consulting provider notified?: Already Contacted 08/10/18 10:12 Consult Physician Routine Consulting Provider: Skyler Benson Consult Reason/Comments: lower extremities cellulitis Do you want consulting provider notified?: Yes Primary care physician: Jayla Mahmood [facility] Course: Discharge diagnosis 1. Abdominal distention and pain clearly related to constipation Abdominal x- ray completed in the ER showing nonacute abdomen. Extensive vascular calcification. Patient was disimpacted by ER physician. Patient having episodes constipation. Patient started on Colace. Dose of lactulose will be given. Patient did have large BM per nursing 08/12/2018 2. Rule out pneumonia. Chest x-ray completed showing new mild infiltrate at the right lung base compared to last exam. No heart failure. There is small right pleural effusion. Dr. James is following for pulmonary. Antibiotics have been DC'd at this time 3. Hypotension. Patient was briefly on Levophed. Blood pressure has improved. Home BP meds resumed parameters. Patient's home dose of hydralazine resumed due to hypertension 4. Elevated troponins. Initial troponin 0.043 0.086 Cardiology has been consulted. Per cardiology continue conservative medical management. Continue aspirin Metroprolol and statin at this time 5. End-stage renal disease. Patient receives hemodialysis Saturday. Patient reports he did receive his dialysis on Saturday. Nephrology services are following. Patient to receive hemodialysis today 6. Acute on chronic systolic congestive heart failure. BNP 119,[address] Wong per nephrology. Okay to resume patient's home Lasix dose per nephrology. 2-D echo completed showing an EF of 45-50% 7. History of coronary artery disease with stent placement 8. History of chronic proximal atrial fibrillation. Per cardiology eliquis has been DC'd due to low hemoglobin. 9. Diabetes mellitus. Home meds resumed plus sliding scale. Globin A1c 7.5. Will resume home meds plus scale coverage 10. Status post kidney transplant in 2011 11. Status post liver transplant 2005 12. Non-Hodgkin's lymphoma in 2006 13. History of hyperlipidemia 14. History of essential hypertension. Patient had episode of hypotension here. Blood pressure has significantly improved. Home meds resumed with parameters 15. Increased weakness. Will consult physical therapy and social work for possible ECF placement upon discharge 16. Anemia of chronic kidney disease. hemoglubin 6.4 today. Per nephrology patient will receive IV iron and 1 unit of PRBCs today. Occult stool has been ordered. No active signs of bleeding at this time. Hemoglobin 7.3. IV iron given. hgb improving to 8.3 17. Bilateral lower extremity cellulitis. Patient currently on cefepime per infectious disease. Per infectious disease continue Mike wrap to keep swelling and patient can be discharged on Ceftin 18. Hyperkalemia. Potassium 5.9. Discussed with nephrology services. No need for Kayexalate this time per nephrology patient to be hemodialysis today Hospital Course This is a 72-year-old male patient. Presented to the emergency room multiple vague complaints including constipation. Upon arrival to ER patient was found to be in CHF exacerbation with possible pneumonia. Patient does have a significant past medical history of end-stage renal disease in which she gets hemodialysis Saturday. Additional medical history includes liver and kidney transplant, asthma, heart failure, COPD, diabetes mellitus, hyperlipidemia, GERD, Hypertension, heart cath with stents, atrial fibrillation which she is on eliquis, non-Hodgkin's lymphoma in 2006 and seizures. Chest x- ray completed showing mild infiltrate in the right lung base compared to last exam. No heart failure. There is new small right pleural effusion. Due to patient's complaint of consultation abdominal x-ray completed in ER showing nonacute abdomen and some vascular calcification. EKG completed showing accelerated junctional rhythm. Troponin slightly elevated at 0.043 and 0.07. BNP elevated at 119,000. Cardiology, nephrology and critical care management has been consulted. Patient currently on vancomycin. Patient also briefly on levophed for pressure support but has since been DC'd due to improvement with blood pressure. Patient to get hemodialysis per nephrology today. Case discussed with nephrology Dr. Wong. Okay to resume home dose of Lasix 80 mg 3 times a day per nephrology. At this time patient denies any chest pain or shortness of breath. Patient denies nausea vomiting or diarrhea. Patient denies any urinary burning or frequency. Patient is currently on room air. On 08/07/2018 patient is alert and oriented resting comfortably. Patient's blood pressure has remained stable. Patient underwent hemodialysis yesterday. Patient's hemoglobin 6.4. Eliquis has been DC'd per cardiology. Occult stool ordered. Distribution is complaining of constipation. Will start Colace and give lactulose. Per nursing staff denies any signs of active bleeding at this time. This time patient denies chest pain or shortness of breath. Patient denies nausea vomiting or diarrhea. Patient denies any urinary burning or frequency On 08/08/2018 patient currently sitting up in chair alert and oriented. Patient reports he currently feels much improved. Patient reports he still has not had a bowel movement. Patient did undergo hemodialysis yesterday and received 1 unit of PRBCs. Hemoglobin up to 7.2. Eliquis remains on hold per cardiology. Per nursing staff denies any signs of active bleeding. Patient denies chest pain or shortness breath. Patient denies nausea vomiting or diarrhea. Patient denies any urinary burning or frequency On 08/09/2018 patient is alert and oriented 3 in no apparent distress he is sitting up in a chair, he had a bowel movement yesterday he is eating his meal, he denies any chest pain or shortness of breath no nausea or vomiting no abdominal pain and no urinary symptoms. On 08/10/2018 patient is alert and oriented 3 in no apparent distress eating up in a chair he denies any chest pain or shortness of breath there is no fever or chills no headache or dizziness occasional cough no nausea or vomiting no abdominal pain no diarrhea and no urinary symptoms last bowel movement 2 days ago On 08/11/2018 patient is alert and oriented 3. Patient currently sitting up in chair. Patient denies chest pain or shortness of breath. Patient denies nausea vomiting or diarrhea. Patient denies any urinary burning or frequency. Patient currently on IV cefepime per infectious disease for bilateral lower extremity cellulitis. Discharge planning to rehab possibly [facility]. On 08/12/2018 patient's alert and oriented 3 sitting up in chair. This time patient denies chest pain or shortness breath. Patient denies nausea vomiting or diarrhea. Patient is still complaining of some abdominal discomfort due to constipation. Will order lactulose at this time. Patient also maintained on Colace. Patient to be DC'd to [facility] when bed available. Did update patient' s [place]. On 08/13/2017 patient is alert and oriented 3 with comfortably in bed. Patient denies chest pain or shortness breath. Denies nausea vomiting or diarrhea. Denies any urinary burning or frequency. Patient did have bowel movement yesterday with no signs of active bleeding. Hemoglobin is improving to 8.3. Patient to get hemodialysis today. Possible discharge to [facility] depending upon insurance On 08/14/2018 patient's alert and oriented currently sitting up in chair. Patient did receive hemodialysis yesterday. Awaiting on insurance prior for D/ C to [facility]. Discharge complete. Patient did have a bowel movement yesterday. Patient potassium slightly elevated at 5.3 will give 1 dose of Kayexalate. Nephrology services are following. At this time patient denies chest pain or shortness of breath. Patient denies nausea vomiting or diarrhea. Patient denies any urinary burning or frequency On 08/15/2018 patient's alert and oriented resting comfortably in bed. Patient to get hemodialysis today. Potassium 5.9. Discussed with Dr. Pompa per nephrology services. Recommend we just use hemodialysis for treatment no need for kayexlate per nephrology. At this time patient denies chest pain or shortness breath. Patient denies nausea vomiting or diarrhea. Patient denies any urinary burning or frequency. Awaiting insurance authorization for discharge to [facility]. On 08/16/2018 patient is alert and oriented 3 in no apparent distress he was seen and examined on the medical floor he is undergoing hemodialysis today there is no fever or chills no headache or dizziness no chest pain no shortness of breath no cough no nausea or vomiting no abdominal pain no diarrhea and no urinary symptoms. At this time [facility] On 08/17/2018 patient was seen and examined on the medical floor he is alert and oriented 3 in no apparent distress triple-lumen catheter was removed from the left neck area there is no fever or chills no headache no dizziness no chest pain no shortness of breath no cough no nausea or vomiting no abdominal pain no diarrhea and no urinary symptoms On 08/18/2017 patient has received prior off for discharge to [facility]. Patient is currently getting hemodialysis at this time. Patient remains alert and oriented 3. Patient will receive lactulose and possibly Fleet enema for constipation. Patient denies chest pain or shortness of breath. Denies nausea vomiting or diarrhea. Patient denies any urinary burning or frequency Eliquis will be DC'd upon discharge due to patient's anemia. This was discussed with cardiology services. This was also discussed with patient and that at this time eliquis will be held due to low hemoglobin. I performed an examination of the patient and discussed their management with the Nurse Practitioner. I have reviewed the Nurse Practitioner's notes and agree with the documented findings and plan of care Patient Condition at Discharge: Stable Plan - Discharge Summary Discharge Rx Participant: No New Discharge Prescriptions: New Aspirin 81 mg PO DAILY chew Darbepoetin Feliberto [Aranesp] 40 mcg SQ Q7D syringe Docusate [Colace] 100 mg PO BID cap Insulin Aspart [NovoLOG (formulary)] 0 unit SQ ACHS vial Pantoprazole [Protonix] 40 mg PO DAILY tablet. Cephalexin [Keflex] 500 mg PO Q12HR 7 Days #14 cap Continue Atorvastatin [Lipitor] 20 mg PO DAILY Tacrolimus [Prograf] 3 mg PO QAM Allopurinol [Zyloprim] 100 mg PO DAILY Tacrolimus [Prograf] 4 mg PO HS hydrALAZINE HCL [Apresoline] 25 mg PO TID #90 tab Metoprolol Tartrate [Lopressor] 50 mg PO BID Furosemide [Lasix] 80 mg PO TID Mycophenolate Mofetil [Cellcept] 500 mg PO BID Cholecalciferol (Vitamin D3) [Vitamin D3] 2,000 unit PO DAILY Multivitamins, Thera [Multivitamin (formulary)] 1 tab PO DAILY Magnesium Oxide [Mag-Ox] 400 mg PO BID Insulin Aspart Protam & Aspart [NovoLOG MIX 70-30 Flexpen] 15 unit SQ BID predniSONE 2.5 mg PO DAILY HYDROcodone/APAP 10-325MG [[place] 10-325] 1 tab PO TID #9 tab Discontinued Apixaban [Eliquis] 2.5 mg PO BID #60 tablet Calcium Acetate [Phoslo] 667 mg PO DAILY Discharge Medication List Atorvastatin [Lipitor] 20 mg PO DAILY 08/18/14 [History] Tacrolimus [Prograf] 3 mg PO QAM 08/18/14 [History] Allopurinol [Zyloprim] 100 mg PO DAILY 10/10/16 [History] Tacrolimus [Prograf] 4 mg PO HS 11/26/16 [History] hydrALAZINE HCL [Apresoline] 25 mg PO TID #90 tab 11/29/16 [Rx] Metoprolol Tartrate [Lopressor] 50 mg PO BID 12/25/16 [History] Cholecalciferol (Vitamin D3) [Vitamin D3] 2,000 unit PO DAILY 08/05/18 [History] Furosemide [Lasix] 80 mg PO TID 08/05/18 [History] Insulin Aspart Protam & Aspart [NovoLOG MIX 70-30 Flexpen] 15 unit SQ BID [History] Magnesium Oxide [Mag-Ox] 400 mg PO BID 08/05/18 [History] Multivitamins, Thera [Multivitamin (formulary)] 1 tab PO DAILY 08/05/18 [History ] Mycophenolate Mofetil [Cellcept] 500 mg PO BID 08/05/18 [History] predniSONE 2.5 mg PO DAILY 08/05/18 [History] Aspirin 81 mg PO DAILY chew 08/13/18 [Rx] Darbepoetin Feliberto [Aranesp] 40 mcg SQ Q7D syringe 08/13/18 [Rx] Docusate [Colace] 100 mg PO BID cap 08/13/18 [Rx] HYDROcodone/APAP 10-325MG [[place] 10-325] 1 tab PO TID #9 tab 08/13/18 [Rx] Insulin Aspart [NovoLOG (formulary)] 0 unit SQ ACHS vial 08/13/18 [Rx] Pantoprazole [Protonix] 40 mg PO DAILY tablet. 08/13/18 [Rx] Cephalexin [Keflex] 500 mg PO Q12HR 7 Days #14 cap 08/18/18 [Rx] Follow up Appointment(s)/Referral(s): Kerrie Pham MD [STAFF PHYSICIAN] - 1 Week Mary Burns, [NON-STAFF] - Jayla Mahmood MD [Primary Care Provider] - 1-2 days Activity/Diet/Wound Care/Special Instructions: Diet dysphagia level III chopped, consistent carb Activity as tolerated CBC and CMP in 2 days Patient to be followed by Dr. mahmood Discharge Disposition: TRANSFER TO SNF/ECF
[2018-08-18 12:46] LABS: Glucose,Whole Blood 71 mg/dL (75-99)
[2018-08-18 15:15] VITALS: BP 120/68; PULSE 66; RESP 16
--- NOTE | 2018-08-18 15:55 | PN ---
PROGRESS NOTE Patient is seen for followup for end-stage renal disease. Currently he is seen on hemodialysis. Patient is resting comfortably. We are trying for about 2 liters. This morning, blood pressure was 142/81, heart rate 63 per minute. Currently on the machine, patient's blood pressure is 99/78, heart rate about 70 per minute. Examination shows significant edema in lower extremities, 3+ bilaterally. Abdomen is distended, soft, nontender. I believe there is ascites as well. Labs show sodium 134, potassium 5.2, hemoglobin 7.8, calcium 8.2. ASSESSMENT: 1. End-stage renal disease, on hemodialysis on a Saturday, Saturday, Saturday schedule. 2. Volume overload, significant lower extremity edema, slowly improving with hemodialysis and ultrafiltration. 3. Status post liver transplant, maintained on immunosuppression. 4. History of kidney transplant which failed. Currently patient is on dialysis. 5. Anemia, multifactorial, maintained on Aranesp. No active bleeding noted at this time. PLAN: Awaiting placement and discharge to ECF after hemodialysis. MMODL / IJN: [id number] /
--- NOTE | 2018-08-18 18:07 | PN ---
PROGRESS NOTE DATE OF SERVICE: 08/18/2018 INTERVAL HISTORY: The patient is seen on rounds early this afternoon. The patient has been afebrile, breathing comfortably. No chest pain. No cough or any abdominal pain. Pain to the leg area is coming from low back pain. PHYSICAL EXAMINATION: Blood pressure 120/60 with a pulse of 56, temperature 97.3. He is 99% on room air. General description is an elderly male lying in bed in no distress. Respiratory system: Unlabored breathing. Clear to auscultation anteriorly. Heart S1, S2 regular rate and rhythm. Abdomen soft, no tenderness. Legs are currently wrapped up. No obvious drainage on the dressing. LABS: White count 7.2 with a BUN of 46, creatinine 2.78. DIAGNOSTIC IMPRESSION AND PLAN: Patient with bilateral lower extremity cellulitis. The patient currently on oral Keflex to continue for another week to finish a course of therapy along with Mike wrap to keep the swelling down. Continue supportive care. MMODL / IJN: [id number] /
== END 2018-08-18 16:56 | DRG 291 ==
LOC: EC 19:33 → 3SCARD 21:39 → 2SICU 08-06 02:14 → 3SCARD 08-07 17:03 → 4MS4W 08-16 07:16
PROVIDERS: ADMIT Internal Medicine; ATTEND Internal Medicine
PROC: 02H633Z Insertion of Infusion Device into Right Atrium, Percutaneous Approach (ICD-10-PCS; principal; 2018-08-05)
PROC: 5A1D70Z Performance of Urinary Filtration, Intermittent, Less than 6 Hours Per Day (ICD-10-PCS; 2018-08-13)
DX: I13.2 Hypertensive heart and chronic kidney disease with heart failure and with stage 5 chronic kidney disease, or end stage renal disease (principal); I50.23 Acute on chronic systolic (congestive) heart failure; J18.9 Pneumonia, unspecified organism; N18.6 End stage renal disease; E87.1 Hypo-osmolality and hyponatremia; I48.1 Persistent atrial fibrillation; J44.0 Chronic obstructive pulmonary disease with (acute) lower respiratory infection; L03.115 Cellulitis of right lower limb; L03.116 Cellulitis of left lower limb; R18.8 Other ascites; T86.12 Kidney transplant failure; Z94.4 Liver transplant status; Z85.72 Personal history of non-Hodgkin lymphomas; D50.9 Iron deficiency anemia, unspecified; D63.1 Anemia in chronic kidney disease; E11.22 Type 2 diabetes mellitus with diabetic chronic kidney disease; E78.5 Hyperlipidemia, unspecified; E87.5 Hyperkalemia; F17.210 Nicotine dependence, cigarettes, uncomplicated; G40.909 Epilepsy, unspecified, not intractable, without status epilepticus; R74.8 Abnormal levels of other serum enzymes; I25.10 Atherosclerotic heart disease of native coronary artery without angina pectoris; I27.20 Pulmonary hypertension, unspecified; I34.0 Nonrheumatic mitral (valve) insufficiency; I42.9 Cardiomyopathy, unspecified; I44.1 Atrioventricular block, second degree; I44.4 Left anterior fascicular block; I48.2 Chronic atrial fibrillation; K21.9 Gastro-esophageal reflux disease without esophagitis; K56.41 Fecal impaction; L89.159 Pressure ulcer of sacral region, unspecified stage; R04.0 Epistaxis; Y83.0 Surgical operation with transplant of whole organ as the cause of abnormal reaction of the patient, or of later complication, without mention of misadventure at the time of the procedure; Z79.01 Long term (current) use of anticoagulants; Z79.4 Long term (current) use of insulin; Z79.899 Other long term (current) drug therapy; Z82.49 Family history of ischemic heart disease and other diseases of the circulatory system; Z83.3 Family history of diabetes mellitus; Z86.14 Personal history of Methicillin resistant Staphylococcus aureus infection; Z95.5 Presence of coronary angioplasty implant and graft; Z98.42 Cataract extraction status, left eye; Z98.41 Cataract extraction status, right eye; Z96.1 Presence of intraocular lens; Z99.2 Dependence on renal dialysis; Z88.1 Allergy status to other antibiotic agents; Z88.5 Allergy status to narcotic agent; Z87.01 Personal history of pneumonia (recurrent); Z66 Do not resuscitate; Z79.52 Long term (current) use of systemic steroids; Z80.9 Family history of malignant neoplasm, unspecified
CPT/HCPCS: 36415; 36556; 71045; 71046; 74018; 80048; 80053; 82533; 82550; 82553; 82728; 83036; 83540; 83550; 83735; 83880; 84100; 84484; 85025; 85610; 85730; 86706; 86850; 86900; 86901; 86920; 87340; 90935; 93005; 93306; 93970; 96365; 99285

== ENCOUNTER 2018-09-01 13:13 | Inpatient (IN) | payer BC, MEDICARE ==
[2018-09-01 13:22] LABS: Glucose,Whole Blood 93 mg/dL (75-99)
[2018-09-01] MEDS ORDERED: SODIUM CHLORIDE 0.9% 1,000 ML IV ONE (13:25)
--- NOTE | 2018-09-01 13:49 | ED ---
Altered Mental Status HPI - General Chief Complaint: Altered Mental Status Stated Complaint: altered LOC Time Seen by Provider: 09/01/18 13:25 Source: EMS, RN notes reviewed, old records reviewed Mode of arrival: EMS Limitations: altered mental status - History of Present Illness Initial Comments: This is a 72-year-old male. This male is a poor historian, he is accepted in transfer from [facility] for evaluation regarding fever altered mental status and multiple abnormal vital signs. Patient is this time is currently without complaint. History obtained from EMS as well as patient's transfer chart MD Complaint: altered mental status, confusion -: hour(s) Severity: moderate Consistency of Symptoms: waxing and waning Context: COPD Associated Symptoms: fever/chills, shortness of breath, weakness Treatments Prior to Arrival: other pre-hospital medication - Related Data Home Medications Medication Instructions Recorded Confirmed Atorvastatin [Lipitor] 20 mg PO HS@2100 08/18/14 09/01/18 Tacrolimus [Prograf] 3 mg PO [facility] 08/18/14 09/01/18 Allopurinol [Zyloprim] 100 mg PO DAILY@0800 10/10/16 09/01/18 Tacrolimus [Prograf] 4 mg PO HS 11/26/16 09/01/18 Metoprolol Tartrate [Lopressor] 50 mg PO HS@209912/25/16 09/01/18 Cholecalciferol (Vitamin D3) 2,000 unit PO DAILY@0800 08/05/18 09/01/18 [Vitamin D3] Furosemide [Lasix] 80 mg PO TID 08/05/18 09/01/18 Insulin Aspart Protam & Aspart 10 unit SQ BID@0800,17008/05/18 09/01/18 [NovoLOG MIX 70-30 Flexpen] Magnesium Oxide [Mag-Ox] 400 mg PO BID@0800,17008/05/18 09/01/18 Multivitamins, Thera [Multivitamin 1 tab PO DAILY@169908/05/18 09/01/18 (formulary)] Mycophenolate Mofetil [Cellcept] 500 mg PO BID@0800,209908/05/18 09/01/18 predniSONE 2.5 mg PO DAILY@0800 08/05/18 09/01/18 Aspirin 81 mg PO DAILY@169909/01/18 09/01/18 Bisacodyl [Dulcolax] 10 mg RECTAL DAILY PRN 09/01/18 09/01/18 Clotrimazole Cristian [Mycelex 10 mg MUCOUS MEM 5XD 09/01/18 09/01/18 Cristian] Collagenase [Santyl] 1 applic TOPICAL DAILY 09/01/18 09/01/18 Darbepoetin Feliberto [Aranesp] 40 mcg SQ WE 09/01/18 09/01/18 Docusate [Colace] 100 mg PO BID@0800,1700 09/01/18 09/01/18 INSULIN ASPART (NovoLOG) [NovoLOG See Protocol SQ ACHS 09/01/18 09/01/18 (formulary)] Magnesium Hydroxide [Milk of 2,400 mg PO DAILY PRN 09/01/18 09/01/18 Magnesia] Metoprolol Tartrate [Lopressor] 100 mg PO DAILY@0800 09/01/18 09/01/18 Mineral Oil [Fleet Mineral Oil] 133 ml RECTAL DAILY PRN 09/01/18 09/01/18 Nepro 1 can PO BID-W/MEALS 09/01/18 09/01/18 Pantoprazole [Protonix] 40 mg PO DAILY@0800 09/01/18 09/01/18 Valacyclovir 400mg 400 mg PO TID@0600,1400,2100 09/01/18 09/01/18 Previous Rx's Medication Instructions Recorded hydrALAZINE HCL [Apresoline] 25 mg PO TID #90 tab 11/29/16 HYDROcodone/APAP 10-325MG [[place] 1 tab PO TID #9 tab 08/13/18 10-325] Cephalexin [Keflex] 500 mg PO Q12HR 7 Days #14 cap 08/18/18 Allergies Allergy/AdvReac Type Severity Reaction Status Date / Time heaton Allergy Unknown Verified 09/01/18 13:33 codeine Allergy Rash/Hives Verified 09/01/18 13:33 erythromycin base Allergy Swelling Verified 09/01/18 13:33 Review of Systems ROS Statement: Those systems with pertinent positive or pertinent negative responses have been documented in the HPI. ROS Other: All systems not noted in ROS Statement are negative. Past Medical History Past Medical History: Asthma, Cancer, Heart Failure, COPD, Diabetes Mellitus, GERD/Reflux, Hyperlipidemia, Hypertension, Osteoarthritis (OA), Pneumonia, Renal Disease, Seizure Disorder Additional Past Medical History / Comment(s): 06/13/15 Pt presented to [facility] ER with SOB. He is admitted with clinical impression of CHF exacerbation, dyspnea and hyperglycemia, renal failure. 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 dialysis m/w/f History of Any Multi-Drug Resistant Organisms: MRSA Date of last positivie culture/infection: 12/26/16 MDRO Source:: NASAL Past Surgical History: Heart Catheterization, Heart Catheterization With Stent Additional Past Surgical History / Comment(s): liver transplant 2005 d/t non alcoholic steatohepatits d/t fatty liver, colonoscopy, insertion lt arm fistula( in past had hemodialysis)-kidney implant 2011, lt shoulder sx has pin in place, rt wrist sx with pins, cataract removal and lens implants bilaterally 2013. Past Anesthesia/Blood Transfusion Reactions: No Reported Reaction Date of Last Stent Placement:: 2007 Past Psychological History: No Psychological Hx Reported Smoking Status: Former smoker Past Alcohol Use History: Unable to Obtain Past Drug Use History: Unable to Obtain - Past Family History Father Family Medical History: No Reported History, Cancer, Hypertension Additional Family Medical History / Comment(s): Father in his 80's. Mother Family Medical History: Diabetes Mellitus, Hypertension Additional Family Medical History / Comment(s): Mother in her 80's. General Exam Limitations: altered mental status General appearance: alert, in no apparent distress Head exam: Present: atraumatic, normocephalic, normal inspection Eye exam: Present: normal appearance, PERRL, EOMI. Absent: scleral icterus, conjunctival injection, periorbital swelling ENT exam: Present: normal exam, mucous membranes moist Neck exam: Present: normal inspection. Absent: tenderness, meningismus, lymphadenopathy Respiratory exam: Present: normal lung sounds bilaterally, wheezes, rales, accessory muscle use, decreased breath sounds, prolonged expiratory. Absent: respiratory distress, rhonchi, stridor Cardiovascular Exam: Present: regular rate, normal rhythm, normal heart sounds. Absent: systolic murmur, diastolic murmur, rubs, gallop, clicks GI/Abdominal exam: Present: soft, normal bowel sounds. Absent: distended, tenderness, guarding, rebound, rigid Extremities exam: Present: normal inspection, full ROM, normal capillary refill. Absent: tenderness, pedal edema, joint swelling, calf tenderness Back exam: Present: normal inspection Neurological exam: Present: alert, oriented X3, CN II-XII intact Psychiatric exam: Present: normal affect, normal mood Skin exam: Present: warm, dry, intact, normal color. Absent: rash Course Vital Signs 09/01/18 09/01/18 09/01/18 13:20 14:53 16:00 Temperature 99.9 F H Pulse Rate 98 92 98 Respiratory 20 18 18 Rate Blood Pressure 152/91 96/34 94/50 O2 Sat by Pulse 91 L 94 L 92 L Oximetry 09/01/18 16:30 Temperature Pulse Rate 90 Respiratory 18 Rate Blood Pressure 104/34 O2 Sat by Pulse 91 L Oximetry - Reevaluation(s) Reevaluation #1: 09/01/18 18:50 Medical records reviewed Reevaluation #2: 09/01/18 18:51 With family and they're agreeable for admission, questions answered - Consultations Consultation #1: Spoke with Dr. Ela espinoza who is aware of admission Medical Decision Making - Medical Decision Making 72 male the ER for evaluation shortness breath altered mental status. He will be admitted for fever underlying pneumonia and CHF. - Lab Data Result diagrams: 09/01/18 13:50 09/01/18 13:50 Lab Results 09/01/18 09/01/18 09/01/18 Range/Units 13:20 13:50 13:50 WBC 10.0 (3.8-10.6) k/uL RBC 3.72 L (4.30-5.90) m/uL Hgb 9.4 L (13.0-17.5) gm/dL Hct 32.6 L (39.0-53.0) % MCV 87.6 (80.0-100.0) fL MCH 25.3 (25.0-35.0) pg MCHC 28.9 L (31.0-37.0) g/dL RDW 18.5 H (11.5-15.5) % Plt Count 470 H (150-450) k/uL Neutrophils % 88 % Lymphocytes % 5 % Monocytes % 4 % Eosinophils % 1 % Basophils % 1 % Neutrophils # 8.9 H (1.3-7.7) k/uL Lymphocytes # 0.5 L (1.0-4.8) k/uL Monocytes # 0.4 (0-1.0) k/uL Eosinophils # 0.1 (0-0.7) k/uL Basophils # 0.1 (0-0.2) k/uL Hypochromasia Marked Anisocytosis Slight PT (9.0-12.0) sec INR (<1.2) APTT (22.0-30.0) sec Sodium (137-145) mmol/L Potassium (3.5-5.1) mmol/L Chloride (98-107) mmol/L Carbon Dioxide (22-30) mmol/L Anion Gap mmol/L BUN (9-20) mg/dL Creatinine (0.66-1.25) mg/dL Est GFR (CKD-EPI)AfAm (>60 ml/min/1.73 sqM) Est GFR (CKD-EPI)NonAf (>60 ml/min/1.73 sqM) Glucose (74-99) mg/dL POC Glucose (mg/dL) 93 (75-99) mg/dL POC Glu Nursing Clerk Courtney Mccain Calcium (8.4-10.2) mg/dL Total Bilirubin (0.2-1.3) mg/dL AST (17-59) U/L ALT (21-72) U/L Alkaline Phosphatase (38-126) U/L Ammonia <9 (<30) umol/L Troponin I (0.000-0.034) ng/mL Total Protein (6.3-8.2) g/dL Albumin (3.5-5.0) g/dL Influenza Type A RNA (Not Detectd) Influenza Type B (PCR) (Not Detectd) 09/01/18 09/01/18 09/01/18 Range/Units 13:50 13:50 13:50 WBC (3.8-10.6) k/uL RBC (4.30-5.90) m/uL Hgb (13.0-17.5) gm/dL Hct (39.0-53.0) % MCV (80.0-100.0) fL MCH (25.0-35.0) pg MCHC (31.0-37.0) g/dL RDW (11.5-15.5) % Plt Count (150-450) k/uL Neutrophils % % Lymphocytes % % Monocytes % % Eosinophils % % Basophils % % Neutrophils # (1.3-7.7) k/uL Lymphocytes # (1.0-4.8) k/uL Monocytes # (0-1.0) k/uL Eosinophils # (0-0.7) k/uL Basophils # (0-0.2) k/uL Hypochromasia Anisocytosis PT 11.3 (9.0-12.0) sec INR 1.1 (<1.2) APTT 25.1 (22.0-30.0) sec Sodium 137 (137-145) mmol/L Potassium 4.2 (3.5-5.1) mmol/L Chloride 99 (98-107) mmol/L Carbon Dioxide 31 H (22-30) mmol/L Anion Gap 7 mmol/L BUN 19 (9-20) mg/dL Creatinine 1.53 H (0.66-1.25) mg/dL Est GFR (CKD-EPI)AfAm 52 (>60 ml/min/1.73 sqM) Est GFR (CKD-EPI)NonAf 45 (>60 ml/min/1.73 sqM) Glucose 95 (74-99) mg/dL POC Glucose (mg/dL) (75-99) mg/dL POC Glu Nursing Clerk ID Calcium 8.4 (8.4-10.2) mg/dL Total Bilirubin 0.8 (0.2-1.3) mg/dL AST 18 (17-59) U/L ALT 25 (21-72) U/L Alkaline Phosphatase 196 H (38-126) U/L Ammonia (<30) umol/L Troponin I 0.061 H* (0.000-0.034) ng/mL Total Protein 5.1 L (6.3-8.2) g/dL Albumin 2.7 L (3.5-5.0) g/dL Influenza Type A RNA (Not Detectd) Influenza Type B (PCR) (Not Detectd) 09/01/18 Range/Units 14:48 WBC (3.8-10.6) k/uL RBC (4.30-5.90) m/uL Hgb (13.0-17.5) gm/dL Hct (39.0-53.0) % MCV (80.0-100.0) fL MCH (25.0-35.0) pg MCHC (31.0-37.0) g/dL RDW (11.5-15.5) % Plt Count (150-450) k/uL Neutrophils % % Lymphocytes % % Monocytes % % Eosinophils % % Basophils % % Neutrophils # (1.3-7.7) k/uL Lymphocytes # (1.0-4.8) k/uL Monocytes # (0-1.0) k/uL Eosinophils # (0-0.7) k/uL Basophils # (0-0.2) k/uL Hypochromasia Anisocytosis PT (9.0-12.0) sec INR (<1.2) APTT (22.0-30.0) sec Sodium (137-145) mmol/L Potassium (3.5-5.1) mmol/L Chloride (98-107) mmol/L Carbon Dioxide (22-30) mmol/L Anion Gap mmol/L BUN (9-20) mg/dL Creatinine (0.66-1.25) mg/dL Est GFR (CKD-EPI)AfAm (>60 ml/min/1.73 sqM) Est GFR (CKD-EPI)NonAf (>60 ml/min/1.73 sqM) Glucose (74-99) mg/dL POC Glucose (mg/dL) (75-99) mg/dL POC Glu Nursing Clerk ID Calcium (8.4-10.2) mg/dL Total Bilirubin (0.2-1.3) mg/dL AST (17-59) U/L ALT (21-72) U/L Alkaline Phosphatase (38-126) U/L Ammonia (<30) umol/L Troponin I (0.000-0.034) ng/mL Total Protein (6.3-8.2) g/dL Albumin (3.5-5.0) g/dL Influenza Type A RNA Not Detected (Not Detectd) Influenza Type B (PCR) Not Detected (Not Detectd) - EKG Data -: EKG Interpreted by Me (EKG shows rate of 102 QRS 114 QTC 477) - Radiology Data Radiology results: report reviewed (Chest x-rays positive for CHF and pneumonia) , image reviewed Disposition Clinical Impression: Altered mental status, Acute exacerbation of chronic obstructive airways disease, CHF exacerbation, Fever Disposition: ADMITTED IP TO THIS HOSP Condition: Fair Is patient prescribed a controlled substance at d/c from ED?: No Referrals: Jayla Mahmood MD [Primary Care Provider] - 1-2 days
[2018-09-01 14:08] LABS: Anisocytosis Slight; Basophils # (A) 0.1 k/uL (0-0.2); Basophils % (A) 1 %; Eosinophils # (A) 0.1 k/uL (0-0.7); Eosinophils % (A) 1 %; HCT 32.6 % (39.0-53.0); HGB 9.4 gm/dL (13.0-17.5); Hypochromasia Marked; Lymphocytes # (A) 0.5 k/uL (1.0-4.8); Lymphocytes % (A) 5 %; MCH 25.3 pg (25.0-35.0); MCHC 28.9 g/dL (31.0-37.0); MCV 87.6 fL (80.0-100.0); Mean Platelet Volume 6.9; Monocytes # (A) 0.4 k/uL (0-1.0); Monocytes % (A) 4 %; Neutrophils # (A) 8.9 k/uL (1.3-7.7); Neutrophils % (A) 88 %; Platelet Count 470 k/uL (150-450); RBC 3.72 m/uL (4.30-5.90); RDW 18.5 % (11.5-15.5)
[2018-09-01 14:20] LABS: Albumin 2.7 g/dL (3.5-5.0); Calcium 8.4 mg/dL (8.4-10.2); Potassium 4.2 mmol/L (3.5-5.1); Total Bilirubin 0.8 mg/dL (0.2-1.3); Total Protein 5.1 g/dL (6.3-8.2)
[2018-09-01 14:30] LABS: INR 1.1 (<1.2); Partial Thromboplastin Time 25.1 sec (22.0-30.0); Prothrombin Time 11.3 sec (9.0-12.0)
[2018-09-01] MEDS ORDERED: ACETAMINOPHEN IV (For NPO) 1,000 MG in EMPTY BAG 1 BAG IVPB STA (15:28)
[2018-09-01] MEDS ORDERED: IBUPROFEN IV 800 MG in SODIUM CHLORIDE 0.9% 250 ML IV ONE (15:28)
[2018-09-01] MEDS ORDERED: SODIUM CHLORIDE 0.9% 500 ML 500 ML IV STA (15:28)
--- NOTE | 2018-09-01 15:54 | XR ---
EXAMINATION TYPE: XR chest 2V DATE OF EXAM: 09/01/2018 COMPARISON: Chest x-ray 3 weeks ago. HISTORY: Confusion and weakness. TECHNIQUE: Frontal and lateral views of the chest are obtained. FINDINGS: There is right internal jugular dual-lumen dialysis catheter redemonstrated. The cardiac si lhouette size is mildly enlarged. There are persistent small bilateral pleural effusions with bluntin g of posterior costophrenic angles. There is chronic parenchymal changes bilaterally with new mild bi lateral interstitial prominence and/or edema background chronic parenchymal change. The osseous str uctures are demineralized. Surgical change left shoulder level is redemonstrated. IMPRESSION: Correlate for fluid overload state and/or CHF exacerbation as there is mild cardiomegaly with persistent small to tiny bilateral pleural effusions and felt new mild bilateral interstitial e huseyin.
[2018-09-01] MEDS ORDERED: PNEUMONIA PROTOCOL UTILIZED 1 EACH MISC PO PRN (18:14)
[2018-09-01] MEDS ORDERED: PIPERACILLIN-TAZOBACTAM 3.375 GM in SODIUM CHLORIDE 0.9% 100 ML IVPB STA (18:14)
[2018-09-01] MEDS ORDERED: LEVOFLOXACIN 750MG-D5W PMX 750 MG in DEXTROSE/WATER 1 150ML.BAG IVPB STA (18:14)
[2018-09-01] MEDS ORDERED: GLYCERIN ADULT SUPPOSITORY 1 EACH RECTAL STA (18:47)
[2018-09-01] MEDS ORDERED: IPRATROPIUM-ALBUTEROL 3 ML NEB INHALATION STA (18:47)
[2018-09-01] MEDS ORDERED: SENNOSIDES-DOCUSATE SODIUM 1 EACH TAB PO STA (18:51)
[2018-09-01] MEDS: IPRATROPIUM-ALBUTEROL 3 ML NEB INHALATION SCH (20:30)
[2018-09-01] MEDS: SENNOSIDES-DOCUSATE SODIUM 1 EACH TAB PO SCH (21:41)
[2018-09-01] MEDS: POLYETHYLENE GLYCOL 3350 17 GM POWD.PACK PO SCH (21:42)
[2018-09-01] MEDS ORDERED: MINERAL OIL 133 ML ENEMA RECTAL PRN (22:32)
[2018-09-01] MEDS ORDERED: MAGNESIUM HYDROXIDE 2,400 MG/10 ML CUP PO PRN (22:32)
[2018-09-01] MEDS ORDERED: BISACODYL 10 MG SUPP RECTAL PRN (22:32)
[2018-09-02] MEDS: PIPERACILLIN-TAZOBACTAM 3.375 GM in SODIUM CHLORIDE 0.9% 100 ML IVPB SCH ×4 (01:40→23:10)
[2018-09-02] MEDS: HYDROcodone/APAP 10-325MG 1 EACH TAB PO PRN ×2 (03:53→20:03)
[2018-09-02] MEDS: VALACYCLOVIR PO SCH ×3 (05:36→20:05)
[2018-09-02 06:10] LABS: Glucose,Whole Blood 103 mg/dL (75-99)
[2018-09-02] MEDS: INSULIN ASPART (NovoLOG) 100 UNIT/ML VIAL SQ SCH ×4 (06:11→21:16)
[2018-09-02] MEDS: IPRATROPIUM-ALBUTEROL 3 ML NEB INHALATION SCH ×4 (08:01→19:36)
--- NOTE | 2018-09-02 08:15 | XR ---
EXAMINATION TYPE: XR chest 2V DATE OF EXAM: 09/02/2018 COMPARISON: 09/01/2018 HISTORY: 72-year-old male follow-up pneumonia TECHNIQUE: PA and lateral views FINDINGS: Right-sided double-lumen hemodialysis catheter with tips at the lower SVC level. Heart size appears i mproved, within normal limits. There is focal opacity at the cardiac apex and also at the right base now demonstrated. Overall improved appearance to the perihilar densities. Trace effusions persist. Hy perinflation with increased retrosternal clear space. IMPRESSION: 1. Improving CHF with minimal residual pulmonary vascular congestion and trace effusions. 2. Focal bibasilar opacities, however, are increased and could represent atelectasis or pneumonia.
[2018-09-02] MEDS ORDERED: HYDROcodone/APAP 10-325MG 1 EACH TAB PO SCH (09:00)
[2018-09-02] MEDS ORDERED: CEPHALEXIN 500 MG CAP PO SCH (09:00)
[2018-09-02] MEDS: FUROSEMIDE 80 MG TAB PO SCH ×3 (09:22→23:10)
[2018-09-02] MEDS: PANTOPRAZOLE 40 MG TABLET PO SCH (09:22)
[2018-09-02] MEDS: CHOLECALCIFEROL 1,000 UNIT TAB PO SCH (09:22)
[2018-09-02] MEDS: METOPROLOL TARTRATE 50 MG TAB PO SCH ×2 (09:22→20:04)
[2018-09-02] MEDS: MAGNESIUM OXIDE 400 MG TAB PO SCH ×2 (09:22→18:55)
[2018-09-02] MEDS: hydrALAZINE HCL 25 MG TAB PO SCH ×3 (09:22→23:10)
[2018-09-02] MEDS: ALLOPURINOL 100 MG TAB PO SCH (09:22)
[2018-09-02] MEDS: MYCOPHENOLATE MOFETIL 250 MG CAP PO SCH ×2 (09:23→20:04)
[2018-09-02] MEDS: DOCUSATE 100 MG CAP PO SCH ×2 (09:23→18:55)
[2018-09-02] MEDS: TACROLIMUS 1 MG CAP PO SCH ×2 (09:24→20:04)
[2018-09-02] MEDS: predniSONE 2.5 MG TAB PO SCH (09:25)
[2018-09-02] MEDS: ENOXAPARIN 40 MG/0.4 ML SYRINGE SQ SCH (09:25)
[2018-09-02] MEDS: SENNOSIDES-DOCUSATE SODIUM 1 EACH TAB PO SCH ×2 (09:32→20:04)
[2018-09-02 09:38] LABS: Anisocytosis Slight; Basophils % (A) 0 %; Eosinophils # (A) 0.1 k/uL (0-0.7); Eosinophils % (A) 1 %; HCT 31.1 % (39.0-53.0); HGB 9.1 gm/dL (13.0-17.5); Hypochromasia Marked; Lymphocytes # (A) 0.6 k/uL (1.0-4.8); Lymphocytes % (A) 7 %; MCH 26.6 pg (25.0-35.0); MCHC 29.1 g/dL (31.0-37.0); MCV 91.4 fL (80.0-100.0); Mean Platelet Volume 6.5; Monocytes # (A) 0.3 k/uL (0-1.0); Monocytes % (A) 4 %; Neutrophils % (A) 85 %; Platelet Count 411 k/uL (150-450); RBC 3.41 m/uL (4.30-5.90); WBC 8.2 k/uL (3.8-10.6)
[2018-09-02 10:05] LABS: Albumin 2.4 g/dL (3.5-5.0); Calcium 8.4 mg/dL (8.4-10.2); Potassium 4.4 mmol/L (3.5-5.1); Total Bilirubin 0.7 mg/dL (0.2-1.3); Total Protein 4.5 g/dL (6.3-8.2)
--- NOTE | 2018-09-02 11:08 | P.HPIM ---
History of Present Illness H&P Date: 09/02/18 This is a 72-year-old male patient who presented to the emergency room from [facility]. Patient presented with complaints of fever and altered mental status. Patient has a known past medical l history of asthma, cancer, heart failure, COPD, diabetes mellitus, GERD, end-stage renal disease, hyperlipidemia, hypertension, osteoarthritis, seizure disorder, CHF, liver transplant, kidney transplant in non-Hodgkin's lymphoma. Patient is hemodialysis Saturday. Patient reports that he's been having on and off fevers for the past couple days. Patient denies cough or sputum production. Patient's only main complaint is constipation. Chest x-ray completed in the ER showing correlation for fluid overload state and/or CHF exacerbation is very mildly cardiomegaly with persistent small to tiny pleural effusions and felt new mild bialteral intersitial edema. EKG performed in ER showing undetermined rhythm, left anterior fascicular block and nonspecific ST and T-wave abnormality. Patient has been started on Levaquin for IV antibiotics. Pulmonary services will be consulted. Cardiology and nephrology service is consulted. Blood and sputum cultures ordered. This time patient denies chest pain or shortness breath. Patient denies nausea vomiting or diarrhea. Patient denies any urinary burning or frequency. Review of Systems please refer to HPI otherwise unremarkable Past Medical History Past Medical History: Asthma, Cancer, Heart Failure, COPD, Diabetes Mellitus, GERD/Reflux, Hyperlipidemia, Hypertension, Osteoarthritis (OA), Pneumonia, Renal Disease, Seizure Disorder Additional Past Medical History / Comment(s): 06/13/15 Pt presented to [facility] ER with SOB. He is admitted with clinical impression of CHF exacerbation, dyspnea and hyperglycemia, renal failure. 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 dialysis m/w/f History of Any Multi-Drug Resistant Organisms: MRSA Date of last positivie culture/infection: 12/26/16 MDRO Source:: NASAL Past Surgical History: Heart Catheterization, Heart Catheterization With Stent Additional Past Surgical History / Comment(s): liver transplant 2006 d/t non alcoholic steatohepatits d/t fatty liver, colonoscopy, insertion lt arm fistula( in past had hemodialysis)-kidney implant 2011, lt shoulder sx has pin in place, rt wrist sx with pins, cataract removal and lens implants bilaterally 2013. Past Anesthesia/Blood Transfusion Reactions: No Reported Reaction Date of Last Stent Placement:: 2007 Past Psychological History: No Psychological Hx Reported Additional Psychological History / Comment(s): Pt resides at home with his spouse. He is independent. He uses no assistive device. He has no home care agency use. He drives. Smoking Status: Former smoker Past Alcohol Use History: Unable to Obtain Additional Past Alcohol Use History / Comment(s): Pt states he never quit smoking for long. He started smoking when he was 32 yrs old and is still smoking about a ppd. Past Drug Use History: Unable to Obtain - Past Family History Father Family Medical History: No Reported History, Cancer, Hypertension Additional Family Medical History / Comment(s): Father in his 80's. Mother Family Medical History: Diabetes Mellitus, Hypertension Additional Family Medical History / Comment(s): Mother in her 80's. Medications and Allergies Home Medications Medication Instructions Recorded Confirmed Type Atorvastatin [Lipitor] 20 mg PO HS@2100 08/18/14 09/01/18 History Tacrolimus [Prograf] 3 mg PO QAM 08/18/14 09/01/18 History Allopurinol [Zyloprim] 100 mg PO DAILY@0800 10/10/16 09/01/18 History Tacrolimus [Prograf] 4 mg PO HS 11/26/16 09/01/18 History hydrALAZINE HCL [Apresoline] 25 mg PO TID #90 tab 11/29/16 09/01/18 Rx Metoprolol Tartrate [Lopressor] 50 mg PO HS@2100 12/25/16 09/01/18 History Cholecalciferol (Vitamin D3) 2,000 unit PO DAILY@0800 08/05/18 09/01/18 History [Vitamin D3] Furosemide [Lasix] 80 mg PO TID 08/05/18 09/01/18 History Insulin Aspart Protam & Aspart 10 unit SQ BID@0800,1700 08/05/18 09/01/18 History [NovoLOG MIX 70-30 Flexpen] Magnesium Oxide [Mag-Ox] 400 mg PO BID@0800,1700 08/05/18 09/01/18 History Multivitamins, Thera [Multivitamin 1 tab PO DAILY@1700 08/05/18 09/01/18 History (formulary)] Mycophenolate Mofetil [Cellcept] 500 mg PO BID@0800,2100 08/05/18 09/01/18 History predniSONE 2.5 mg PO DAILY@0800 08/05/18 09/01/18 History HYDROcodone/APAP 10-325MG [[place] 1 tab PO TID #9 tab 08/13/18 09/01/18 Rx 10-325] Cephalexin [Keflex] 500 mg PO Q12HR 7 Days #14 cap 08/18/18 09/01/18 Rx Aspirin 81 mg PO DAILY@1700 09/01/18 09/01/18 History Bisacodyl [Dulcolax] 10 mg RECTAL DAILY PRN 09/01/18 09/01/18 History Clotrimazole Cristian [Mycelex 10 mg MUCOUS MEM 5XD 09/01/18 09/01/18 History Cristian] Collagenase [Santyl] 1 applic TOPICAL DAILY 09/01/18 09/01/18 History Darbepoetin Feliberto [Aranesp] 40 mcg SQ WE 09/01/18 09/01/18 History Docusate [Colace] 100 mg PO BID@0800,1700 09/01/18 09/01/18 History INSULIN ASPART (NovoLOG) [NovoLOG See Protocol SQ ACHS 09/01/18 09/01/18 History (formulary)] Magnesium Hydroxide [Milk of 2,400 mg PO DAILY PRN 09/01/18 09/01/18 History Magnesia] Metoprolol Tartrate [Lopressor] 100 mg PO DAILY@0800 09/01/18 09/01/18 History Mineral Oil [Fleet Mineral Oil] 133 ml RECTAL DAILY PRN 09/01/18 09/01/18 History Nepro 1 can PO BID-W/MEALS 09/01/18 09/01/18 History Pantoprazole [Protonix] 40 mg PO DAILY@0800 09/01/18 09/01/18 History Valacyclovir 400mg 400 mg PO TID@0600,1400,2100 09/01/18 09/01/18 History Allergies Allergy/AdvReac Type Severity Reaction Status Date / Time heaton Allergy Unknown Verified 09/01/18 13:33 codeine Allergy Rash/Hives Verified 09/01/18 13:33 erythromycin base Allergy Swelling Verified 09/01/18 13:33 Physical Exam Vitals: Vital Signs Temp Pulse Pulse Resp BP BP Pulse Ox 09/02/18 08:14 88 09/02/18 08:03 88 09/02/18 08:00 96.8 F L 85 18 109/52 95 09/02/18 03:00 98 F 63 18 137/63 98 09/01/18 23:31 75 18 116/52 99 09/01/18 20:48 92 09/01/18 20:32 88 97 09/01/18 20:09 98.1 F 82 18 92/56 94 L 09/01/18 20:08 97.9 F 65 18 131/60 100 09/01/18 19:30 86 18 99/37 94 L 09/01/18 19:00 98.1 F 82 18 95/38 91 L 09/01/18 16:30 90 18 104/34 91 L 09/01/18 16:00 98 18 94/50 92 L 09/01/18 14:53 92 18 96/34 94 L 09/01/18 13:20 99.9 F H 98 20 152/91 91 L Intake and Output 09/01/18 09/02/18 09/02/18 22:59 06:59 14:59 Intake Total 240 200 Balance 240 200 Intake: Oral 240 200 Other: Weight 74 kg Head normocephalic Neck supple Lungs diminished bilaterally Heart regular rate and rhythm S1-S2, no rub or gallop Abdomen is soft nontender soft rounded positive bowel sounds Extremities no edema Neuro alert and orientated to 3 Results CBC & Chem 7: 09/02/18 08:56 09/02/18 08:56 Labs: Abnormal Lab Results - Last 24 Hours (Table) 09/01/18 09/01/18 09/01/18 Range/Units 13:50 13:50 13:50 RBC 3.72 L (4.30-5.90) m/uL Hgb 9.4 L (13.0-17.5) gm/dL Hct 32.6 L (39.0-53.0) % MCHC 28.9 L (31.0-37.0) g/dL RDW 18.5 H (11.5-15.5) % Plt Count 470 H (150-450) k/uL Neutrophils # 8.9 H (1.3-7.7) k/uL Lymphocytes # 0.5 L (1.0-4.8) k/uL Sodium (137-145) mmol/L Carbon Dioxide 31 H (22-30) mmol/L BUN (9-20) mg/dL Creatinine 1.53 H (0.66-1.25) mg/dL Glucose (74-99) mg/dL POC Glucose (mg/dL) (75-99) mg/dL AST (17-59) U/L ALT (21-72) U/L Alkaline Phosphatase 196 H (38-126) U/L Troponin I 0.061 H* (0.000-0.034) ng/mL Total Protein 5.1 L (6.3-8.2) g/dL Albumin 2.7 L (3.5-5.0) g/dL 09/02/18 09/02/18 09/02/18 Range/Units 06:09 08:56 08:56 RBC 3.41 L (4.30-5.90) m/uL Hgb 9.1 L (13.0-17.5) gm/dL Hct 31.1 L (39.0-53.0) % MCHC 29.1 L (31.0-37.0) g/dL RDW 18.0 H (11.5-15.5) % Plt Count (150-450) k/uL Neutrophils # (1.3-7.7) k/uL Lymphocytes # 0.6 L (1.0-4.8) k/uL Sodium 136 L (137-145) mmol/L Carbon Dioxide (22-30) mmol/L BUN 27 H (9-20) mg/dL Creatinine 2.05 H (0.66-1.25) mg/dL Glucose 134 H (74-99) mg/dL POC Glucose (mg/dL) 103 H (75-99) mg/dL AST 16 L (17-59) U/L ALT 12 L (21-72) U/L Alkaline Phosphatase 166 H (38-126) U/L Troponin I (0.000-0.034) ng/mL Total Protein 4.5 L (6.3-8.2) g/dL Albumin 2.4 L (3.5-5.0) g/dL Thrombosis Risk Factor Assmnt - Choose All That Apply Any of the Below Risk Factors Present?: Yes Each Factor Represents 1 point: Abnormal pulmonary function (COPD) Other Risk Factors: Yes Each Risk Factor Represents 2 Points: Age 61-74 years Thrombosis Risk Factor Assessment Total Risk Factor Score: 3 Thrombosis Risk Factor Assessment Level: Moderate Risk Assessment and Plan Assessment: 1. Pneumonia with fever. Influenza negative. Sputum and cultures ordered. Patient currently on Levaquin and Zosyn. Pulmonary services have been consulted. Chest x-ray completed showing improving CHF with minimal residual pulmonary vascular congestion and trace effusions. Focal bibasilar opacities however are increasing and could represent atelectasis or pneumonia. 2. Acute on chronic systolic congestive heart failure. Cardiology services have been consulted. Patient's home Lasix dose has been resumed recent 2-D echo completed showing EF of 45-50% 3. End-stage renal disease. Patient receives hemodialysis Saturday. Nephrology services are following 4. Mildly elevated troponins. Cardiology services consulted. Patient recently admitted and was worked up by cardiology at that time 5. History of coronary disease with stent placement 6. History of chronic proximal atrial fibrillation. During previous admission cardiology DC'd eliquis due to low hemoglobin 7. Diabetes mellitus type 2. Pulmonary services available at sliding scale. Previous hemoglobin A1c 7.58. 8. Status post kidney transplant in 2011 9. Status post liver transplant thousand 2005 10. History of non-Hodgkin's open 2006 11. History of hyperlipidemia 12. History of essential hypertension DVT prophylaxis Lovenox. GI prophylaxis Protonix Time with Patient: Greater than 30 (Greater than 60% of the total time spent in counseling and coordination of care. I performed an examination of the patient and discussed their management with the Nurse Practitioner. I have reviewed the Nurse Practitioner's notes and agree with the documented findings and plan of care)
[2018-09-02] MEDS: GLYCERIN ADULT SUPPOSITORY 1 EACH RECTAL SCH (11:47)
[2018-09-02] MEDS: INSULN ASP PRT/INSULIN ASPART 100 UNIT/ML 10 ML VIAL SQ SCH ×2 (11:58→18:55)
[2018-09-02 12:16] LABS: Glucose,Whole Blood 199 mg/dL (75-99)
--- NOTE | 2018-09-02 12:41 | P.NPCON ---
History of Present Illness - Reason for Consult end stage renal disease - History of Present Illness Reason for consultation: End-stage renal disease History of present illness: Patient is a 72-year-old male seen in renal consultation for end-stage renal disease. He is maintained on hemodialysis on a Saturday schedule. Patient has a history of kidney as well as a liver transplant. He is mostly maintain for immunosuppression at this point for his liver transplant. Patient's kidney transplant failed and subsequently he was started on hemodialysis. Patient presented to the hospital from an ECF due to altered mental status. Currently the patient's mentation is back to baseline. He is awake and alert. He does have quite a bit of edema in his lower extremities. Chest x-ray is also suggestive of CHF. He has a history of systolic CHF with ejection fraction of 45-50% with severe mitral regurgitation and moderate pulmonary hypertension. No vomiting or diarrhea. Blood pressures on the lower side in the systolic 90s. BNP was noted to be elevated at 133,000. Vital signs are stable. General: The patient appeared well nourished and normally developed. HEENT: Head exam is unremarkable. Neck is without jugular venous distension. LUNGS: Breath sounds decreased. HEART: Rate and Rhythm are regular. First and second heart sounds normal. No murmurs, rubs or gallops. ABDOMEN: Abdominal exam reveals normal bowel sounds. Non-tender and non- distended. No evidence of peritonitis. EXTREMITITES: 2+ edema. Lower extremities wrapped. Past Medical History Past Medical History: Asthma, Cancer, Heart Failure, COPD, Diabetes Mellitus, GERD/Reflux, Hyperlipidemia, Hypertension, Osteoarthritis (OA), Pneumonia, Renal Disease, Seizure Disorder Additional Past Medical History / Comment(s): 06/13/15 Pt presented to [facility] ER with SOB. He is admitted with clinical impression of CHF exacerbation, dyspnea and hyperglycemia, renal failure. 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 dialysis m/w/f History of Any Multi-Drug Resistant Organisms: MRSA Date of last positivie culture/infection: 12/26/16 MDRO Source:: NASAL Past Surgical History: Heart Catheterization, Heart Catheterization With Stent Additional Past Surgical History / Comment(s): liver transplant 2006 d/t non alcoholic steatohepatits d/t fatty liver, colonoscopy, insertion lt arm fistula( in past had hemodialysis)-kidney implant 2011, lt shoulder sx has pin in place, rt wrist sx with pins, cataract removal and lens implants bilaterally 2013. Past Anesthesia/Blood Transfusion Reactions: No Reported Reaction Date of Last Stent Placement:: 2007 Past Psychological History: No Psychological Hx Reported Additional Psychological History / Comment(s): Pt resides at home with his spouse. He is independent. He uses no assistive device. He has no home care agency use. He drives. Smoking Status: Former smoker Past Alcohol Use History: Unable to Obtain Additional Past Alcohol Use History / Comment(s): Pt states he never quit smoking for long. He started smoking when he was 32 yrs old and is still smoking about a ppd. Past Drug Use History: Unable to Obtain - Past Family History Father Family Medical History: No Reported History, Cancer, Hypertension Additional Family Medical History / Comment(s): Father in his 80's. Mother Family Medical History: Diabetes Mellitus, Hypertension Additional Family Medical History / Comment(s): Mother in her 80's. Medications and Allergies Home Medications Medication Instructions Recorded Confirmed Type Atorvastatin [Lipitor] 20 mg PO HS@2100 08/18/14 09/01/18 History Tacrolimus [Prograf] 3 mg PO QAM 08/18/14 09/01/18 History Allopurinol [Zyloprim] 100 mg PO DAILY@0800 10/10/16 09/01/18 History Tacrolimus [Prograf] 4 mg PO HS 11/26/16 09/01/18 History hydrALAZINE HCL [Apresoline] 25 mg PO TID #90 tab 11/29/16 09/01/18 Rx Metoprolol Tartrate [Lopressor] 50 mg PO HS@2100 12/25/16 09/01/18 History Cholecalciferol (Vitamin D3) 2,000 unit PO DAILY@0800 08/05/18 09/01/18 History [Vitamin D3] Furosemide [Lasix] 80 mg PO TID 08/05/18 09/01/18 History Insulin Aspart Protam & Aspart 10 unit SQ BID@0800,1700 08/05/18 09/01/18 History [NovoLOG MIX 70-30 Flexpen] Magnesium Oxide [Mag-Ox] 400 mg PO BID@0800,1700 08/05/18 09/01/18 History Multivitamins, Thera [Multivitamin 1 tab PO DAILY@1700 08/05/18 09/01/18 History (formulary)] Mycophenolate Mofetil [Cellcept] 500 mg PO BID@0800,2100 08/05/18 09/01/18 History predniSONE 2.5 mg PO DAILY@0800 08/05/18 09/01/18 History HYDROcodone/APAP 10-325MG [Clay 1 tab PO TID #9 tab 08/13/18 09/01/18 Rx 10-325] Cephalexin [Keflex] 500 mg PO Q12HR 7 Days #14 cap 08/18/18 09/01/18 Rx Aspirin 81 mg PO DAILY@1700 09/01/18 09/01/18 History Bisacodyl [Dulcolax] 10 mg RECTAL DAILY PRN 09/01/18 09/01/18 History Clotrimazole Cristian [Mycelex 10 mg MUCOUS MEM 5XD 09/01/18 09/01/18 History Cristian] Collagenase [Santyl] 1 applic TOPICAL DAILY 09/01/18 09/01/18 History Darbepoetin Feliberto [Aranesp] 40 mcg SQ WE 09/01/18 09/01/18 History Docusate [Colace] 100 mg PO BID@0800,1700 09/01/18 09/01/18 History INSULIN ASPART (NovoLOG) [NovoLOG See Protocol SQ ACHS 09/01/18 09/01/18 History (formulary)] Magnesium Hydroxide [Milk of 2,400 mg PO DAILY PRN 09/01/18 09/01/18 History Magnesia] Metoprolol Tartrate [Lopressor] 100 mg PO DAILY@0800 09/01/18 09/01/18 History Mineral Oil [Fleet Mineral Oil] 133 ml RECTAL DAILY PRN 09/01/18 09/01/18 History Nepro 1 can PO BID-W/MEALS 09/01/18 09/01/18 History Pantoprazole [Protonix] 40 mg PO DAILY@0800 09/01/18 09/01/18 History Valacyclovir 400mg 400 mg PO TID@0600,1400,2100 09/01/18 09/01/18 History Allergies Allergy/AdvReac Type Severity Reaction Status Date / Time heaton Allergy Unknown Verified 09/01/18 13:33 codeine Allergy Rash/Hives Verified 09/01/18 13:33 erythromycin base Allergy Swelling Verified 09/01/18 13:33 Physical Exam Vitals: Vital Signs Temp Pulse Pulse Resp BP BP Pulse Ox 09/02/18 12:15 88 09/02/18 12:00 84 09/02/18 08:14 88 09/02/18 08:03 88 09/02/18 08:00 96.8 F L 85 18 109/52 95 09/02/18 03:00 98 F 63 18 137/63 98 09/01/18 23:31 75 18 116/52 99 09/01/18 20:48 92 09/01/18 20:32 88 97 09/01/18 20:09 98.1 F 82 18 92/56 94 L 09/01/18 20:08 97.9 F 65 18 131/60 100 09/01/18 19:30 86 18 99/37 94 L 09/01/18 19:00 98.1 F 82 18 95/38 91 L 09/01/18 16:30 90 18 104/34 91 L 09/01/18 16:00 98 18 94/50 92 L 09/01/18 14:53 92 18 96/34 94 L 09/01/18 13:20 99.9 F H 98 20 152/91 91 L Intake and Output 09/01/18 09/02/18 09/02/18 22:59 06:59 14:59 Intake Total 240 200 Balance 240 200 Intake: Oral 240 200 Other: Weight 74 kg Results - Lab Results Most recent lab results Calcium 8.4 mg/dL (8.4-10.2) 09/02/18 08:56 09/02/18 08:56 09/02/18 08:56 Assessment and Plan Plan: Assessment: 1. End-stage renal disease maintained on hemodialysis on a Saturday schedule. 2. Systolic CHF with ejection fraction of 45-50% with severe mitral regurgitation and moderate pulmonary hypertension. 3. Volume overload. 4. Status post failed kidney transplant. 5. Status post liver transplant maintained on immunosuppression. 6. Anemia of chronic kidney disease. Rule out iron deficiency. 7. Pneumonia maintain on antibiotics. Influenza negative. Plan: Short hemodialysis today mostly for ultrafiltration. Full treatment of dialysis per his outpatient scheduled for. Check iron studies. Add Aranesp. Resume home immunosuppression medications. Thank you for the consultation. I will continue to follow the patient with you during his hospital stay.
--- NOTE | 2018-09-02 14:28 | P.CNPUL ---
History of Present Illness Consult date: 09/02/18 Requesting physician: Jayla Mahmood Reason for consult: abnormal CXR/CT, other Chief complaint: Weakness, fever, altered mental status History of present illness: This is 72-year-old white male patient of Dr. Mahmood, with past medical history of COPD, chronic congestive heart failure with systolic dysfunction, diabetes mellitus type 2, previous episodes of pneumonia, stage renal failure on hemodialysis on Saturday schedule, previous history of liver transplant in 2005 related to nonalcoholic steatohepatitis due to fatty liver in [place]. The patient did develop renal failure after the liver transplant , and did have renal transplant in 2010, which unfortunately had failed. And patient has been on hemodialysis. Chest x-ray was taken and showed small bilateral pleural effusions with blunting of posterior costophrenic angles, chronic parenchymal changes with new mild bilateral interstitial prominence. Patient did have a low-grade fever on presentation with a temp of 99.9. he did have some variable blood pressures, with some borderline hypotension. Denied any chills, denied any chest pain, denied any loss of breath. No cough, no congestion. Patient's main complaint was that he was extremely weak, and could not walk. EKG showed atrial fibrillation with left bundle branch block. Labs did not show any evidence of leukocytosis, white blood cell count was 10.0, hemoglobin is 9.4, sodium was 137, potassium is 4.2, chloride is 99, CO2 is 31, BUN is 19, creatinine is 1.53. Troponin was 0.061, influenza screen was negative, proBNP was elevated at 133,000. The patient's mental status is improved, he is quite alert and oriented 3, answering questions appropriate, he sitting on the recliner getting ready to eat lunch, denies any distress, no shortness of breath or chest pain. Does have some lower extremity edema, lower legs are Mike wrapped. Denied any vomiting, diarrhea or abdominal pain. His last echocardiogram from 08/06/2018 showed the left ventricular systolic function with an EF between 45 and 50%, severe mitral regurgitation, mild tricuspid regurgitation, and moderate pulmonary hypertension with right-sided pressures of 46 mmHg. Will have hemodialysis treatment today, and tomorrow. Review of Systems All systems: negative Constitutional: Reports fatigue, Reports lethargy, Reports weakness, Denies chills, Denies fever Eyes: denies blurred vision, denies pain Ears, nose, mouth and throat: Denies headache, Denies sore throat Cardiovascular: Denies chest pain, Denies shortness of breath Respiratory: Denies cough Gastrointestinal: Denies abdominal pain, Denies diarrhea, Denies nausea, Denies vomiting Musculoskeletal: Denies myalgias Musculoskeletal: bilateral: foot swelling Integumentary: Denies pruritus, Denies rash Neurological: Denies numbness, Denies weakness Psychiatric: Denies anxiety, Denies depression Endocrine: Denies fatigue, Denies weight change Past Medical History Past Medical History: Asthma, Cancer, Heart Failure, COPD, Diabetes Mellitus, GERD/Reflux, Hyperlipidemia, Hypertension, Osteoarthritis (OA), Pneumonia, Renal Disease, Seizure Disorder Additional Past Medical History / Comment(s): 06/13/15 Pt presented to [facility] ER with SOB. He is admitted with clinical impression of CHF exacerbation, dyspnea and hyperglycemia, renal failure. 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 dialysis m/w/f History of Any Multi-Drug Resistant Organisms: MRSA Date of last positivie culture/infection: 12/26/16 MDRO Source:: NASAL Past Surgical History: Heart Catheterization, Heart Catheterization With Stent Additional Past Surgical History / Comment(s): liver transplant 2006 d/t non alcoholic steatohepatits d/t fatty liver, colonoscopy, insertion lt arm fistula( in past had hemodialysis)-kidney implant 2011, lt shoulder sx has pin in place, rt wrist sx with pins, cataract removal and lens implants bilaterally 2013. Past Anesthesia/Blood Transfusion Reactions: No Reported Reaction Date of Last Stent Placement:: 2007 Past Psychological History: No Psychological Hx Reported Additional Psychological History / Comment(s): Pt resides at home with his spouse. He is independent. He uses no assistive device. He has no home care agency use. He drives. Smoking Status: Former smoker Past Alcohol Use History: Unable to Obtain Additional Past Alcohol Use History / Comment(s): Pt states he never quit smoking for long. He started smoking when he was 32 yrs old and is still smoking about a ppd. Past Drug Use History: Unable to Obtain - Past Family History Father Family Medical History: No Reported History, Cancer, Hypertension Additional Family Medical History / Comment(s): Father in his 80's. Mother Family Medical History: Diabetes Mellitus, Hypertension Additional Family Medical History / Comment(s): Mother in her 80's. Medications and Allergies Home Medications Medication Instructions Recorded Confirmed Type Atorvastatin [Lipitor] 20 mg PO HS@209908/18/14 09/01/18 History Tacrolimus [Prograf] 3 mg PO QAM 08/18/14 09/01/18 History Allopurinol [Zyloprim] 100 mg PO DAILY@0800 10/10/16 09/01/18 History Tacrolimus [Prograf] 4 mg PO HS 11/26/16 09/01/18 History hydrALAZINE HCL [Apresoline] 25 mg PO TID #90 tab 11/29/16 09/01/18 Rx Metoprolol Tartrate [Lopressor] 50 mg PO HS@209912/25/16 09/01/18 History Cholecalciferol (Vitamin D3) 2,000 unit PO DAILY@0800 08/05/18 09/01/18 History [Vitamin D3] Furosemide [Lasix] 80 mg PO TID 08/05/18 09/01/18 History Insulin Aspart Protam & Aspart 10 unit SQ BID@0800,1700 08/05/18 09/01/18 History [NovoLOG MIX 70-30 Flexpen] Magnesium Oxide [Mag-Ox] 400 mg PO BID@0800,1700 08/05/18 09/01/18 History Multivitamins, Thera [Multivitamin 1 tab PO DAILY@0 08/05/18 09/01/18 History (formulary)] Mycophenolate Mofetil [Cellcept] 500 mg PO BID@0800,209908/05/18 09/01/18 History predniSONE 2.5 mg PO DAILY@0800 08/05/18 09/01/18 History HYDROcodone/APAP 10-325MG [[place] 1 tab PO TID #9 tab 08/13/18 09/01/18 Rx 10-325] Cephalexin [Keflex] 500 mg PO Q12HR 7 Days #14 cap 08/18/18 09/01/18 Rx Aspirin 81 mg PO DAILY@1700 09/01/18 09/01/18 History Bisacodyl [Dulcolax] 10 mg RECTAL DAILY PRN 09/01/18 09/01/18 History Clotrimazole Cristian [Mycelex 10 mg MUCOUS MEM 5XD 09/01/18 09/01/18 History Cristian] Collagenase [Santyl] 1 applic TOPICAL DAILY 09/01/18 09/01/18 History Darbepoetin Feliberto [Aranesp] 40 mcg SQ WE 09/01/18 09/01/18 History Docusate [Colace] 100 mg PO BID@0800,1700 09/01/18 09/01/18 History INSULIN ASPART (NovoLOG) [NovoLOG See Protocol SQ ACHS 09/01/18 09/01/18 History (formulary)] Magnesium Hydroxide [Milk of 2,400 mg PO DAILY PRN 09/01/18 09/01/18 History Magnesia] Metoprolol Tartrate [Lopressor] 100 mg PO DAILY@0800 09/01/18 09/01/18 History Mineral Oil [Fleet Mineral Oil] 133 ml RECTAL DAILY PRN 09/01/18 09/01/18 History Nepro 1 can PO BID-W/MEALS 09/01/18 09/01/18 History Pantoprazole [Protonix] 40 mg PO DAILY@0800 09/01/18 09/01/18 History Valacyclovir 400mg 400 mg PO TID@0600,1400,2100 09/01/18 09/01/18 History Allergies Allergy/AdvReac Type Severity Reaction Status Date / Time heaton Allergy Unknown Verified 09/01/18 13:33 codeine Allergy Rash/Hives Verified 09/01/18 13:33 erythromycin base Allergy Swelling Verified 09/01/18 13:33 Physical Exam Vitals: Vital Signs Temp Pulse Pulse Resp BP BP Pulse Ox 09/02/18 12:15 88 09/02/18 12:00 84 09/02/18 08:14 88 09/02/18 08:03 88 09/02/18 08:00 96.8 F L 85 18 109/52 95 09/02/18 03:00 98 F 63 18 137/63 98 09/01/18 23:31 75 18 116/52 99 09/01/18 20:48 92 09/01/18 20:32 88 97 09/01/18 20:09 98.1 F 82 18 92/56 94 L 09/01/18 20:08 97.9 F 65 18 131/60 100 09/01/18 19:30 86 18 99/37 94 L 09/01/18 19:00 98.1 F 82 18 95/38 91 L 09/01/18 16:30 90 18 104/34 91 L 09/01/18 16:00 98 18 94/50 92 L 09/01/18 14:53 92 18 96/34 94 L Intake and Output 09/01/18 09/02/18 09/02/18 22:59 06:59 14:59 Intake Total 240 200 Balance 240 200 Intake: Oral 240 200 Other: Weight 74 kg GENERAL EXAM: Alert, pleasant, 72-year-old white male room air comfortable in no apparent distress. HEAD: Normocephalic/atraumatic. EYES: Normal reaction of pupils, equal size. Conjunctiva pink, sclera white. NOSE: Clear with pink turbinates. THROAT: No erythema or exudates. NECK: No masses, no JVD, no thyroid enlargement, no adenopathy. CHEST: No chest wall deformity. Symmetrical expansion. Right upper chest subclavian hemodialysis catheter in place LUNGS: Equal air entry with no crackles, wheeze, rhonchi or dullness. CVS: Regular rate and rhythm, normal S1 and S2, no gallops, no murmurs, no rubs ABDOMEN: Soft, nontender. No hepatosplenomegaly, normal bowel sounds, no guarding or rigidity. EXTREMITIES: No clubbing, 2+ lower extremity edema, no cyanosis, 2+ pulses and upper and lower extremities. MUSCULOSKELETAL: Muscle strength and tone normal. SPINE: No scoliosis or deformity SKIN: No rashes CENTRAL NERVOUS SYSTEM: Alert and oriented -3. No focal deficits, tone is normal in all 4 extremities. PSYCHIATRIC: Alert and oriented -3. Appropriate affect. Intact judgment and insight. Results - Laboratory Findings CBC and BMP: 09/02/18 08:56 09/02/18 08:56 PT/INR, D-dimer PT 11.3 sec (9.0-12.0) 09/01/18 13:50 INR 1.1 (<1.2) 09/01/18 13:50 Abnormal lab findings: Abnormal Labs 09/01/18 09/01/18 09/01/18 13:50 13:50 13:50 RBC 3.72 L Hgb 9.4 L Hct 32.6 L MCHC 28.9 L RDW 18.5 H Plt Count 470 H Neutrophils # 8.9 H Lymphocytes # 0.5 L Sodium Carbon Dioxide 31 H BUN Creatinine 1.53 H Glucose POC Glucose (mg/dL) AST ALT Alkaline Phosphatase 196 H Troponin I 0.061 H* Total Protein 5.1 L Albumin 2.7 L 09/02/18 09/02/18 09/02/18 06:09 08:56 08:56 RBC 3.41 L Hgb 9.1 L Hct 31.1 L MCHC 29.1 L RDW 18.0 H Plt Count Neutrophils # Lymphocytes # 0.6 L Sodium 136 L Carbon Dioxide BUN 27 H Creatinine 2.05 H Glucose 134 H POC Glucose (mg/dL) 103 H AST 16 L ALT 12 L Alkaline Phosphatase 166 H Troponin I Total Protein 4.5 L Albumin 2.4 L 09/02/18 11:47 RBC Hgb Hct MCHC RDW Plt Count Neutrophils # Lymphocytes # Sodium Carbon Dioxide BUN Creatinine Glucose POC Glucose (mg/dL) 199 H AST ALT Alkaline Phosphatase Troponin I Total Protein Albumin - Diagnostic Findings Chest x-ray: report reviewed, image reviewed Additional studies: EKG reviewed Assessment and Plan Plan: Assessment: #1. Acute exacerbation of chronic systolic congestive heart failure. Chest x- ray showed interstitial edema, bilateral pleural effusions, is consistent with fluid overload and CHF exacerbation, suspicion for underlying pneumonia is low #2. Acute mental status changes, weakness, fatigue, related to the above #3. Chronic congestive heart failure with systolic dysfunction, most recent echocardiogram showed EF of 45-50%, severe mitral regurgitation, and moderate pulmonary hypertension #4. End-stage renal disease on hemodialysis, on the Saturday schedule #5. 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 History of renal transplant in 2010 with subsequent transplant failure #7. Occasional smoker of cigars and cigarettes #8. History of COPD, currently not active, hypertension, hyperlipidemia, GERD/ reflux, diabetes mellitus, previous episodes of pneumonia Plan: Chest x-ray on admission and a follow-up chest x-ray have been reviewed by Dr. Stevenson, were consistent with changes of acute congestive heart failure and fluid overload. Doubt underlying pneumonia. Patient has no leukocytosis, there has been no fever or chills, influenza screen was negative, on today's exam he is very comfortable, denies any shortness of breath, his mentation has returned to normal, he had his dialysis treatment today, and repeat tomorrow. No cough, no chest congestion. No chest pain. Continue to follow I performed a history & physical examination of the patient and discussed their management with my nurse practitioner, Chioma Escobedo. I reviewed the nurse practitioner's note and agree with the documented findings and plan of care. Lung sounds are positive for decreased breath sounds bilaterally. The findings and the impression was discussed with the patient. I attest to the documentation by the nurse practitioner. Time with Patient: Greater than 30
[2018-09-02 14:37] VITALS: BMI 24.0
--- NOTE | 2018-09-02 14:42 | P.CRDCN ---
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 He presented to the hospital on this admission because of mental status changes. He apparently went to [facility] after his dialysis treatment and they noted him to have some mild mentally status changes. He also felt extremely weak. EKG on admission here showed sinus tachycardia . White blood cell count 10.0, hemoglobin 9.4, sodium 137, potassium 4.2, chloride 99, CO2 31 , BUN 19 and creatinine 1.5. Troponin 0.061. Influenza negative, we did request a BNP level be obtained which came back to be 133,000. Chest x-ray showed small bilateral pleural effusions with blunting of the posterior costophrenic angles, he also had a low-grade temperature on admission of 99.9. Patient is alert and oriented 3 today answering questions appropriately, sitting up in the chair at bedside at the time of my examination. Patient does have evidence of bilateral lower extremity edema with Mike wraps in place. He also had an echocardiogram with Doppler study performed in July of this year which revealed an ejection fraction of 45-50% with severe MR, mild TR and moderate pulmonary hypertension. He will undergo hemodialysis today and tomorrow. Blood pressure 110/50 with a heart rate in the 80s, 95% on room air. Past Medical History Past Medical History: Asthma, Cancer, Heart Failure, COPD, Diabetes Mellitus, GERD/Reflux, Hyperlipidemia, Hypertension, Osteoarthritis (OA), Pneumonia, Renal Disease, Seizure Disorder Additional Past Medical History / Comment(s): 06/13/15 Pt presented to [facility] ER with SOB. He is admitted with clinical impression of CHF exacerbation, dyspnea and hyperglycemia, renal failure. 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 dialysis m/w/f History of Any Multi-Drug Resistant Organisms: MRSA Date of last positivie culture/infection: 12/26/16 MDRO Source:: NASAL Past Surgical History: Heart Catheterization, Heart Catheterization With Stent Additional Past Surgical History / Comment(s): liver transplant 2005 d/t non alcoholic steatohepatits d/t fatty liver, colonoscopy, insertion lt arm fistula( in past had hemodialysis)-kidney implant 2011, lt shoulder sx has pin in place, rt wrist sx with pins, cataract removal and lens implants bilaterally 2013. Past Anesthesia/Blood Transfusion Reactions: No Reported Reaction Date of Last Stent Placement:: 2007 Past Psychological History: No Psychological Hx Reported Additional Psychological History / Comment(s): Pt resides at home with his spouse. He is independent. He uses no assistive device. He has no home care agency use. He drives. Smoking Status: Former smoker Past Alcohol Use History: Unable to Obtain Additional Past Alcohol Use History / Comment(s): Pt states he never quit smoking for long. He started smoking when he was 32 yrs old and is still smoking about a ppd. Past Drug Use History: Unable to Obtain - Past Family History Father Family Medical History: No Reported History, Cancer, Hypertension Additional Family Medical History / Comment(s): Father in his 80's. Mother Family Medical History: Diabetes Mellitus, Hypertension Additional Family Medical History / Comment(s): Mother in her 80's. Medications and Allergies Home Medications Medication Instructions Recorded Confirmed Type Atorvastatin [Lipitor] 20 mg PO HS@2100 08/18/14 09/01/18 History Tacrolimus [Prograf] 3 mg PO QAM 08/18/14 09/01/18 History Allopurinol [Zyloprim] 100 mg PO DAILY@0800 10/10/16 09/01/18 History Tacrolimus [Prograf] 4 mg PO HS 11/26/16 09/01/18 History hydrALAZINE HCL [Apresoline] 25 mg PO TID #90 tab 11/29/16 09/01/18 Rx Metoprolol Tartrate [Lopressor] 50 mg PO HS@2100 12/25/16 09/01/18 History Cholecalciferol (Vitamin D3) 2,000 unit PO DAILY@0800 08/05/18 09/01/18 History [Vitamin D3] Furosemide [Lasix] 80 mg PO TID 08/05/18 09/01/18 History Insulin Aspart Protam & Aspart 10 unit SQ BID@0800,1700 08/05/18 09/01/18 History [NovoLOG MIX 70-30 Flexpen] Magnesium Oxide [Mag-Ox] 400 mg PO BID@0800,1700 08/05/18 09/01/18 History Multivitamins, Thera [Multivitamin 1 tab PO DAILY@1700 08/05/18 09/01/18 History (formulary)] Mycophenolate Mofetil [Cellcept] 500 mg PO BID@0800,2100 08/05/18 09/01/18 History predniSONE 2.5 mg PO DAILY@0800 08/05/18 09/01/18 History HYDROcodone/APAP 10-325MG [Keystone 1 tab PO TID #9 tab 08/13/18 09/01/18 Rx 10-325] Cephalexin [Keflex] 500 mg PO Q12HR 7 Days #14 cap 08/18/18 09/01/18 Rx Aspirin 81 mg PO DAILY@1700 09/01/18 09/01/18 History Bisacodyl [Dulcolax] 10 mg RECTAL DAILY PRN 09/01/18 09/01/18 History Clotrimazole Cristian [Mycelex 10 mg MUCOUS MEM 5XD 09/01/18 09/01/18 History Cristian] Collagenase [Santyl] 1 applic TOPICAL DAILY 09/01/18 09/01/18 History Darbepoetin Feliberto [Aranesp] 40 mcg SQ WE 09/01/18 09/01/18 History Docusate [Colace] 100 mg PO BID@0800,1700 09/01/18 09/01/18 History INSULIN ASPART (NovoLOG) [NovoLOG See Protocol SQ ACHS 09/01/18 09/01/18 History (formulary)] Magnesium Hydroxide [Milk of 2,400 mg PO DAILY PRN 09/01/18 09/01/18 History Magnesia] Metoprolol Tartrate [Lopressor] 100 mg PO DAILY@0800 09/01/18 09/01/18 History Mineral Oil [Fleet Mineral Oil] 133 ml RECTAL DAILY PRN 09/01/18 09/01/18 History Nepro 1 can PO BID-W/MEALS 09/01/18 09/01/18 History Pantoprazole [Protonix] 40 mg PO DAILY@0800 09/01/18 09/01/18 History Valacyclovir 400mg 400 mg PO TID@0600,1400,2100 09/01/18 09/01/18 History Allergies Allergy/AdvReac Type Severity Reaction Status Date / Time heaton Allergy Unknown Verified 09/01/18 13:33 codeine Allergy Rash/Hives Verified 09/01/18 13:33 erythromycin base Allergy Swelling Verified 09/01/18 13:33 Physical Exam Vitals: Vital Signs Temp Pulse Pulse Resp BP BP Pulse Ox 09/02/18 08:14 88 09/02/18 08:03 88 09/02/18 03:00 98 F 63 18 137/63 98 09/01/18 23:31 75 18 116/52 99 09/01/18 20:48 92 09/01/18 20:32 88 97 09/01/18 20:09 98.1 F 82 18 92/56 94 L 09/01/18 20:08 97.9 F 65 18 131/60 100 09/01/18 19:30 86 18 99/37 94 L 09/01/18 19:00 98.1 F 82 18 95/38 91 L 09/01/18 16:30 90 18 104/34 91 L 09/01/18 16:00 98 18 94/50 92 L 09/01/18 14:53 92 18 96/34 94 L 09/01/18 13:20 99.9 F H 98 20 152/91 91 L Intake and Output 09/01/18 09/02/18 09/02/18 22:59 06:59 14:59 Intake Total 240 Balance 240 Intake: Oral 240 Other: Weight 74 kg GENERAL EXAM: Alert, pleasant, 72-year-old white male room air comfortable in no apparent distress. HEAD: Normocephalic/atraumatic. EYES: Normal reaction of pupils, equal size. Conjunctiva pink, sclera white. NOSE: Clear with pink turbinates. THROAT: No erythema or exudates. NECK: No masses, no JVD, no thyroid enlargement, no adenopathy. CHEST: No chest wall deformity. Symmetrical expansion. Right upper chest subclavian hemodialysis catheter in place LUNGS: Equal air entry with no crackles, wheeze, rhonchi or dullness. CVS: Regular rate and rhythm, normal S1 and S2, no gallops, no murmurs, no rubs ABDOMEN: Soft, nontender. No hepatosplenomegaly, normal bowel sounds, no guarding or rigidity. EXTREMITIES: No clubbing, 2+ lower extremity edema, no cyanosis, 2+ pulses and upper and lower extremities. MUSCULOSKELETAL: Muscle strength and tone normal. SPINE: No scoliosis or deformity SKIN: No rashes CENTRAL NERVOUS SYSTEM: Alert and oriented -3. No focal deficits, tone is normal in all 4 extremities. PSYCHIATRIC: Alert and oriented -3. Appropriate affect. Intact judgment and insight. Results 09/02/18 08:56 09/02/18 08:56 Cardiac Enzymes 09/01/18 09/01/18 Range/Units 13:50 13:50 AST 18 (17-59) U/L Troponin I 0.061 H* (0.000-0.034) ng/mL Coagulation 09/01/18 Range/Units 13:50 PT 11.3 (9.0-12.0) sec APTT 25.1 (22.0-30.0) sec CBC 09/01/18 Range/Units 13:50 WBC 10.0 (3.8-10.6) k/uL RBC 3.72 L (4.30-5.90) m/uL Hgb 9.4 L (13.0-17.5) gm/dL Hct 32.6 L (39.0-53.0) % Plt Count 470 H (150-450) k/uL Comprehensive Metabolic Panel 09/01/18 Range/Units 13:50 Sodium 137 (137-145) mmol/L Potassium 4.2 (3.5-5.1) mmol/L Chloride 99 (98-107) mmol/L Carbon Dioxide 31 H (22-30) mmol/L BUN 19 (9-20) mg/dL Creatinine 1.53 H (0.66-1.25) mg/dL Glucose 95 (74-99) mg/dL Calcium 8.4 (8.4-10.2) mg/dL AST 18 (17-59) U/L ALT 25 (21-72) U/L Alkaline Phosphatase 196 H (38-126) U/L Total Protein 5.1 L (6.3-8.2) g/dL Albumin 2.7 L (3.5-5.0) g/dL Current Medications Generic Name Dose Route Start Last Admin Trade Name Freq PRN Reason Stop Dose Admin Hydrocodone Bitart/Acetaminophen 1 each 09/02/18 02:39 09/02/18 03:53 Keystone 10 PO 1 each Q8H PRN Administration Pain Albuterol/Ipratropium 3 ml 09/01/18 20:00 09/02/18 08:01 Duoneb 0.5 Mg-3 Mg/3 Ml Soln INHALATION 3 ml RT-QID [facility] Administration Allopurinol 100 mg 09/02/18 08:00 09/02/18 09:22 Zyloprim PO 100 mg DAILY@0800 [facility] Administration Aspirin 81 mg 09/02/18 17:00 Aspirin PO DAILY@1700 [facility] Atorvastatin Calcium 20 mg 09/02/18 21:00 Lipitor PO HS@2100 [facility] Bisacodyl 10 mg 09/01/18 22:32 Dulcolax RECTAL DAILY PRN Constipation Cholecalciferol 2,000 unit 09/02/18 08:00 09/02/18 09:22 Vitamin D3 PO 2,000 unit DAILY@0800 [facility] Administration Collagenase 1 applic 09/02/18 09:00 Santyl TOPICAL DAILY [facility] Darbepoetin Feliberto 40 mcg 09/03/18 09:00 Aranesp SQ WE [facility] Docusate Sodium 100 mg 09/02/18 08:00 09/02/18 09:23 Colace PO 100 mg BID@0800,1700 [facility] Administration Enoxaparin Sodium 40 mg 09/02/18 09:00 09/02/18 09:25 Lovenox SQ 40 mg DAILY [facility] Administration Furosemide 80 mg 09/02/18 09:00 09/02/18 09:22 Lasix PO 80 mg TID [facility] Administration Glycerin 1 each 09/02/18 09:00 Glycerin Adult Suppository RECTAL DAILY [facility] Hydralazine HCl 25 mg 09/02/18 09:00 09/02/18 09:22 Apresoline PO 25 mg TID [facility] Administration Levofloxacin 750 mg/ IV 150 mls @ 100 mls/hr 09/02/18 19:00 Solution IVPB 09/14/18 19:01 Q24H [facility] Piperacillin Sod/Tazobactam 100 mls @ 25 mls/hr 09/02/18 02:00 09/02/18 09:24 Sod 3.375 gm/ Sodium Chloride IVPB 09/12/18 02:01 25 mls/hr Q8HR [facility]DI Administration Insulin Aspart 10 unit 09/02/18 08:00 Novolog Mix 70-30 Vial SQ BID@0800,1700 [facility] Insulin Aspart 0 unit 09/02/18 07:30 09/02/18 06:11 Novolog SQ Not Given ACHS [facility] Protocol Magnesium Hydroxide 2,400 mg 09/01/18 22:32 Milk Of Magnesia PO DAILY PRN Constipation Magnesium Oxide 400 mg 09/02/18 08:00 09/02/18 09:22 Mag-Ox PO 400 mg BID@0800,1700 [facility] Administration Metoprolol Tartrate 50 mg 09/02/18 21:00 Lopressor PO HS@2100 [facility] Metoprolol Tartrate 100 mg 09/02/18 08:00 09/02/18 09:22 Lopressor PO 100 mg DAILY@0800 [facility] Administration Mineral Oil 133 ml 09/01/18 22:32 Fleet Mineral Oil RECTAL DAILY PRN Constipation Miscellaneous Information 1 each 09/01/18 18:14 Pneumonia Protocol Utilized PO ONCE PRN Per Protocol Multivitamins 1 each 09/02/18 17:00 Theragran PO DAILY@1700 [facility] Mycophenolate Mofetil 500 mg 09/02/18 08:00 09/02/18 09:23 Cellcept PO 500 mg BID@0800,2100 [facility] Administration Valacyclovir 400mg 400 mg 09/02/18 06:00 09/02/18 05:36 400 Mg PO Not Given TID@0600,1400,2100 [facility] Pantoprazole Sodium 40 mg 09/02/18 08:00 09/02/18 09:22 Protonix PO 40 mg DAILY@0800 [facility] Administration Polyethylene Glycol 17 gm 09/01/18 21:00 09/01/18 21:42 Miralax PO 17 gm HS [facility] Administration Prednisone 2.5 mg 09/02/18 08:00 09/02/18 09:25 PO 2.5 mg DAILY@0800 [facility] Administration Senna/Docusate Sodium 1 each 09/01/18 21:00 09/02/18 09:32 Senokot-S PO 1 each BID [facility] Administration Tacrolimus 3 mg 09/02/18 09:00 09/02/18 09:24 Prograf PO 3 mg QAM [facility] Administration Tacrolimus 4 mg 09/02/18 21:00 Prograf PO HS [facility]DI Intake and Output 09/01/18 09/02/18 09/02/18 22:59 06:59 14:59 Intake Total 240 Balance 240 Intake: Oral 240 Other: Weight 74 kg 09/01/18 13:50 09/01/18 13:50 EKG Interpretations (text) EKG shows a sinus tachycardia nonspecific ST-T wave changes. Assessment and Plan Plan: Assessment: #1. Acute exacerbation of chronic diastolic congestive heart failure. Chest x- ray showed interstitial edema, bilateral pleural effusions, is consistent with fluid overload and CHF exacerbation, BNP level 133,000 #2. Acute mental status changes, weakness, fatigue, alert and oriented 3 this morning. #3. Chronic congestive heart failure with diastolic dysfunction, most recent echocardiogram showed EF of 45-50%, severe mitral regurgitation, and moderate pulmonary hypertension #4. End-stage renal disease on hemodialysis, on the Saturday schedule #5. 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 History of renal transplant in 2010 with subsequent transplant failure #7. Occasional smoker of cigars and cigarettes #8. History of COPD Plan Patient just had an echo done in July of this year, we will not repeat an echo on this admission. He is scheduled to undergo dialysis today and again tomorrow. Repeat chest x-ray tomorrow. DNP note has been reviewed, I agree with a documented findings and plan of care. Patient was seen and examined.
[2018-09-02 17:22] LABS: Glucose,Whole Blood 132 mg/dL (75-99)
[2018-09-02] MEDS ORDERED: NON-FORMULARY DRUG (Nepro 1 CAN) PO SCH (17:30)
[2018-09-02] MEDS: ASPIRIN 81 MG PO SCH (18:55)
[2018-09-02] MEDS: MULTIVITAMINS, THERA 1 EACH TAB PO SCH (18:55)
[2018-09-02] MEDS ORDERED: LEVOFLOXACIN 750MG-D5W PMX 750 MG in DEXTROSE/WATER 1 150ML.BAG IVPB SCH (19:00)
[2018-09-02 19:05] LABS: Iron Saturation 13.99 (15.00-50.00)
[2018-09-02] MEDS: POLYETHYLENE GLYCOL 3350 17 GM POWD.PACK PO SCH (20:04)
[2018-09-02] MEDS: ATORVASTATIN 20 MG TAB PO SCH (20:04)
[2018-09-02 21:09] LABS: Glucose,Whole Blood 103 mg/dL (75-99)
[2018-09-03] MEDS: VALACYCLOVIR PO SCH ×3 (03:26→23:31)
[2018-09-03 05:18] LABS: Glucose,Whole Blood 96 mg/dL (75-99)
[2018-09-03] MEDS: INSULIN ASPART (NovoLOG) 100 UNIT/ML VIAL SQ SCH ×4 (05:18→21:06)
[2018-09-03 06:41] LABS: Anisocytosis Slight; Basophils % (A) 0 %; Eosinophils # (A) 0.2 k/uL (0-0.7); Eosinophils % (A) 4 %; HCT 27.2 % (39.0-53.0); Hypochromasia Marked; Lymphocytes # (A) 0.4 k/uL (1.0-4.8); Lymphocytes % (A) 7 %; MCH 26.4 pg (25.0-35.0); MCHC 29.4 g/dL (31.0-37.0); MCV 89.9 fL (80.0-100.0); Mean Platelet Volume 6.4; Monocytes # (A) 0.3 k/uL (0-1.0); Monocytes % (A) 5 %; Neutrophils # (A) 4.5 k/uL (1.3-7.7); Neutrophils % (A) 81 %; Platelet Count 349 k/uL (150-450); RBC 3.03 m/uL (4.30-5.90); RDW 18.2 % (11.5-15.5); WBC 5.5 k/uL (3.8-10.6)
[2018-09-03 06:48] LABS: Albumin 2.3 g/dL (3.5-5.0); Calcium 8.4 mg/dL (8.4-10.2); Potassium 4.2 mmol/L (3.5-5.1); Total Bilirubin 0.6 mg/dL (0.2-1.3); Total Protein 4.3 g/dL (6.3-8.2)
[2018-09-03] MEDS: IPRATROPIUM-ALBUTEROL 3 ML NEB INHALATION SCH ×4 (08:13→20:32)
[2018-09-03] MEDS ORDERED: DARBEPOETIN ALFA 40 MCG/0.4 ML SYRINGE SQ SCH (09:00)
[2018-09-03] MEDS: CHOLECALCIFEROL 1,000 UNIT TAB PO SCH (09:06)
[2018-09-03] MEDS: ENOXAPARIN 40 MG/0.4 ML SYRINGE SQ SCH (09:06)
[2018-09-03] MEDS: INSULN ASP PRT/INSULIN ASPART 100 UNIT/ML 10 ML VIAL SQ SCH ×2 (09:06→16:57)
[2018-09-03] MEDS: METOPROLOL TARTRATE 50 MG TAB PO SCH ×2 (09:07→20:56)
[2018-09-03] MEDS: PANTOPRAZOLE 40 MG TABLET PO SCH (09:07)
[2018-09-03] MEDS: DOCUSATE 100 MG CAP PO SCH ×2 (09:07→16:58)
[2018-09-03] MEDS: FUROSEMIDE 80 MG TAB PO SCH ×3 (09:07→20:56)
[2018-09-03] MEDS: ALLOPURINOL 100 MG TAB PO SCH (09:07)
[2018-09-03] MEDS: hydrALAZINE HCL 25 MG TAB PO SCH ×3 (09:07→20:56)
[2018-09-03] MEDS: MAGNESIUM OXIDE 400 MG TAB PO SCH ×2 (09:07→16:58)
[2018-09-03] MEDS: GLYCERIN ADULT SUPPOSITORY 1 EACH RECTAL SCH (09:08)
[2018-09-03] MEDS: MYCOPHENOLATE MOFETIL 250 MG CAP PO SCH ×2 (09:09→09:12)
[2018-09-03] MEDS: PIPERACILLIN-TAZOBACTAM 3.375 GM in SODIUM CHLORIDE 0.9% 100 ML IVPB SCH ×2 (09:09→16:57)
[2018-09-03] MEDS: predniSONE 2.5 MG TAB PO SCH (09:09)
[2018-09-03] MEDS: TACROLIMUS 1 MG CAP PO SCH ×2 (09:11→22:12)
[2018-09-03] MEDS: HYDROcodone/APAP 10-325MG 1 EACH TAB PO PRN ×2 (09:23→16:58)
[2018-09-03 11:20] LABS: Glucose,Whole Blood 152 mg/dL (75-99)
--- NOTE | 2018-09-03 12:18 | P.PN ---
Subjective Patient is seen in follow-up for end-stage renal disease. He is maintained on hemodialysis on a Saturday schedule. His mentation is back to baseline. He underwent extra hemodialysis treatment mostly for ultrafiltration. Currently seeing while undergoing hemodialysis. He is tolerating the procedure well. Hemodynamically stable. Vital signs are stable. General: The patient appeared well nourished and normally developed. HEENT: Head exam is unremarkable. Neck is without jugular venous distension. LUNGS: Breath sounds decreased. HEART: Rate and Rhythm are regular. First and second heart sounds normal. No murmurs, rubs or gallops. ABDOMEN: Abdominal exam reveals normal bowel sounds. Non-tender and non- distended. No evidence of peritonitis. EXTREMITITES: 2+ edema. Lower extremities wrapped. No obvious drainage. Objective - Vital Signs Vital signs: Vital Signs Temp 98 F 09/03/18 03:15 Pulse 92 09/03/18 12:05 Resp 18 09/03/18 03:15 BP 140/65 09/03/18 03:15 Pulse Ox 97 09/03/18 03:15 Intake & Output 09/02/18 09/03/18 09/03/18 18:59 06:59 18:59 Intake Total 830 470 240 Balance 830 470 240 Weight 74 kg 78.5 kg Intake: Oral 830 470 240 Other: # Voids 0 1 # Bowel Movements 1 - Labs CBC & Chem 7: 09/03/18 05:52 09/03/18 05:52 Labs: Abnormal Lab Results - Last 24 Hours (Table) 09/02/18 09/02/18 09/02/18 Range/Units 08:56 11:47 17:08 RBC (4.30-5.90) m/uL Hgb (13.0-17.5) gm/dL Hct (39.0-53.0) % MCHC (31.0-37.0) g/dL RDW (11.5-15.5) % Lymphocytes # (1.0-4.8) k/uL BUN (9-20) mg/dL Creatinine (0.66-1.25) mg/dL POC Glucose (mg/dL) 199 H 132 H (75-99) mg/dL Iron 20 L (65-175) ug/dL TIBC 143 L (228-460) ug/dL Iron Saturation 13.99 L (15.00-50.00) Ferritin 1560.4 H (22.0-322.0) ng/mL AST (17-59) U/L ALT (21-72) U/L Alkaline Phosphatase (38-126) U/L Total Protein (6.3-8.2) g/dL Albumin (3.5-5.0) g/dL 09/02/18 09/03/18 09/03/18 Range/Units 21:00 05:52 05:52 RBC 3.03 L (4.30-5.90) m/uL Hgb 8.0 L (13.0-17.5) gm/dL Hct 27.2 L (39.0-53.0) % MCHC 29.4 L (31.0-37.0) g/dL RDW 18.2 H (11.5-15.5) % Lymphocytes # 0.4 L (1.0-4.8) k/uL BUN 25 H (9-20) mg/dL Creatinine 2.03 H (0.66-1.25) mg/dL POC Glucose (mg/dL) 103 H (75-99) mg/dL Iron (65-175) ug/dL TIBC (228-460) ug/dL Iron Saturation (15.00-50.00) Ferritin (22.0-322.0) ng/mL AST 13 L (17-59) U/L ALT 17 L (21-72) U/L Alkaline Phosphatase 133 H (38-126) U/L Total Protein 4.3 L (6.3-8.2) g/dL Albumin 2.3 L (3.5-5.0) g/dL 09/03/18 Range/Units 11:15 RBC (4.30-5.90) m/uL Hgb (13.0-17.5) gm/dL Hct (39.0-53.0) % MCHC (31.0-37.0) g/dL RDW (11.5-15.5) % Lymphocytes # (1.0-4.8) k/uL BUN (9-20) mg/dL Creatinine (0.66-1.25) mg/dL POC Glucose (mg/dL) 152 H (75-99) mg/dL Iron (65-175) ug/dL TIBC (228-460) ug/dL Iron Saturation (15.00-50.00) Ferritin (22.0-322.0) ng/mL AST (17-59) U/L ALT (21-72) U/L Alkaline Phosphatase (38-126) U/L Total Protein (6.3-8.2) g/dL Albumin (3.5-5.0) g/dL Microbiology - Last 24 Hours (Table) 09/01/18 18:50 Blood Culture - Preliminary Blood No Growth after 24 hours Assessment and Plan Plan: Assessment: 1. End-stage renal disease maintained on hemodialysis on a Saturday schedule. 2. Systolic CHF with ejection fraction of 45-50% with severe mitral regurgitation and moderate pulmonary hypertension. 3. Volume overload. 4. Status post failed kidney transplant. 5. Status post liver transplant maintained on immunosuppression. 6. Anemia of chronic kidney disease. Maintained on Aranesp. Iron deficiency noted. High ferritin level noted. 7. Pneumonia maintain on antibiotics. Influenza negative. Plan: Currently seen while undergoing hemodialysis. Next treatment on Saturday. Maintain current immunosuppression meds.
--- NOTE | 2018-09-03 15:32 | P.PN ---
Subjective Progress Note Date: 09/03/18 This is a 72-year-old male patient who presented to the emergency room from [facility]. Patient presented with complaints of fever and altered mental status. Patient has a known past medical l history of asthma, cancer, heart failure, COPD, diabetes mellitus, GERD, end-stage renal disease, hyperlipidemia, hypertension, osteoarthritis, seizure disorder, CHF, liver transplant, kidney transplant in non-Hodgkin's lymphoma. Patient is hemodialysis Saturday. Patient reports that he's been having on and off fevers for the past couple days. Patient denies cough or sputum production. Patient's only main complaint is constipation. Chest x-ray completed in the ER showing correlation for fluid overload state and/or CHF exacerbation is very mildly cardiomegaly with persistent small to tiny pleural effusions and felt new mild bialteral intersitial edema. EKG performed in ER showing undetermined rhythm, left anterior fascicular block and nonspecific ST and T-wave abnormality. Patient has been started on Levaquin for IV antibiotics. Pulmonary services will be consulted. Cardiology and nephrology service is consulted. Blood and sputum cultures ordered. This time patient denies chest pain or shortness breath. Patient denies nausea vomiting or diarrhea. Patient denies any urinary burning or frequency. On 09/03/2018 patient is alert and oriented 3 resting comfortably in bed. Patient received hemodialysis yesterday. Infectious disease has been consulted due to patient's fever on admission. At this time patient denies chest pain or shortness breath. Patient denies nausea vomiting or diarrhea. Patient denies any urinary burning or frequency. Objective - Vital Signs Vital signs: Vital Signs Temp 98 F 09/03/18 03:15 Pulse 92 09/03/18 12:05 Resp 18 09/03/18 12:00 BP 141/68 09/03/18 12:00 Pulse Ox 97 09/03/18 12:00 Intake & Output 09/02/18 09/03/18 09/03/18 18:59 06:59 18:59 Intake Total 830 470 360 Balance 830 470 360 Weight 74 kg 78.5 kg Intake: Oral 830 470 360 Other: # Voids 0 1 # Bowel Movements 1 - Exam Head normocephalic Neck supple Lungs diminished bilaterally Heart regular rate and rhythm S1-S2, no rub or gallop Abdomen is soft nontender soft rounded positive bowel sounds Extremities no edema Neuro alert and orientated to 3 - Labs CBC & Chem 7: 09/03/18 05:52 09/03/18 05:52 Labs: Abnormal Lab Results - Last 24 Hours (Table) 09/02/18 09/02/18 09/02/18 Range/Units 08:56 17:08 21:00 RBC (4.30-5.90) m/uL Hgb (13.0-17.5) gm/dL Hct (39.0-53.0) % MCHC (31.0-37.0) g/dL RDW (11.5-15.5) % Lymphocytes # (1.0-4.8) k/uL BUN (9-20) mg/dL Creatinine (0.66-1.25) mg/dL POC Glucose (mg/dL) 132 H 103 H (75-99) mg/dL Iron 20 L (65-175) ug/dL TIBC 143 L (228-460) ug/dL Iron Saturation 13.99 L (15.00-50.00) Ferritin 1560.4 H (22.0-322.0) ng/mL AST (17-59) U/L ALT (21-72) U/L Alkaline Phosphatase (38-126) U/L Total Protein (6.3-8.2) g/dL Albumin (3.5-5.0) g/dL 09/03/18 09/03/18 09/03/18 Range/Units 05:52 05:52 11:15 RBC 3.03 L (4.30-5.90) m/uL Hgb 8.0 L (13.0-17.5) gm/dL Hct 27.2 L (39.0-53.0) % MCHC 29.4 L (31.0-37.0) g/dL RDW 18.2 H (11.5-15.5) % Lymphocytes # 0.4 L (1.0-4.8) k/uL BUN 25 H (9-20) mg/dL Creatinine 2.03 H (0.66-1.25) mg/dL POC Glucose (mg/dL) 152 H (75-99) mg/dL Iron (65-175) ug/dL TIBC (228-460) ug/dL Iron Saturation (15.00-50.00) Ferritin (22.0-322.0) ng/mL AST 13 L (17-59) U/L ALT 17 L (21-72) U/L Alkaline Phosphatase 133 H (38-126) U/L Total Protein 4.3 L (6.3-8.2) g/dL Albumin 2.3 L (3.5-5.0) g/dL Microbiology - Last 24 Hours (Table) 09/01/18 18:50 Blood Culture - Preliminary Blood No Growth after 24 hours Assessment and Plan Assessment: 1. Febrile illness with possible pneumonia. Influenza negative. Sputum and cultures ordered. Patient currently on Levaquin and Zosyn. Pulmonary services have been consulted. Chest x-ray completed showing improving CHF with minimal residual pulmonary vascular congestion and trace effusions. Focal bibasilar opacities however are increasing and could represent atelectasis or pneumonia. Per Pulmonary services.underlining pneumonia changes acutely consistent with changes of acute congestive heart failure and fluid overload. Will consult infectious disease due to patient's presentation with fever on admission 2. Acute on chronic systolic congestive heart failure. Cardiology services have been consulted. Patient's home Lasix dose has been resumed recent 2-D echo completed showing EF of 45-50%. Per cardiology services no repeat echo on this admission 3. End-stage renal disease. Patient receives hemodialysis Saturday. Nephrology services are following 4. Mildly elevated troponins. Cardiology services consulted. Patient recently admitted and was worked up by cardiology at that time 5. History of coronary disease with stent placement 6. History of chronic proximal atrial fibrillation. During previous admission cardiology DC'd eliquis due to low hemoglobin 7. Diabetes mellitus type 2. Pulmonary services available at sliding scale. Previous hemoglobin A1c 7.58. 8. Status post kidney transplant in 2011 9. Status post liver transplant thousand 2005 10. History of non-Hodgkin's open 2006 11. History of hyperlipidemia 12. History of essential hypertension DVT prophylaxis Lovenox. GI prophylaxis Protonix I performed an examination of the patient and discussed their management with the Nurse Practitioner. I have reviewed the Nurse Practitioner's notes and agree with the documented findings and plan of care
[2018-09-03] MEDS: SENNOSIDES-DOCUSATE SODIUM 1 EACH TAB PO SCH ×2 (15:51→20:56)
--- NOTE | 2018-09-03 15:58 | P.PN ---
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 He presented to the hospital on this admission because of mental status changes. He apparently went to [facility] after his dialysis treatment and they noted him to have some mild mentally status changes. He also felt extremely weak. EKG on admission here showed sinus tachycardia . White blood cell count 10.0, hemoglobin 9.4, sodium 137, potassium 4.2, chloride 99, CO2 31 , BUN 19 and creatinine 1.5. Troponin 0.061. Influenza negative, we did request a BNP level be obtained which came back to be 133,000. Chest x-ray showed small bilateral pleural effusions with blunting of the posterior costophrenic angles, he also had a low-grade temperature on admission of 99.9. Patient is alert and oriented 3 today answering questions appropriately, sitting up in the chair at bedside at the time of my examination. Patient does have evidence of bilateral lower extremity edema with Mike wraps in place. He also had an echocardiogram with Doppler study performed in July of this year which revealed an ejection fraction of 45-50% with severe MR, mild TR and moderate pulmonary hypertension. He will undergo hemodialysis today and tomorrow. Blood pressure 110/50 with a heart rate in the 80s, 95% on room air. 09/03/2018 Patient seen and examined today, overall doing well, undergoing dialysis today. Hemodynamically stable. Objective - Vital Signs Vital signs: Vital Signs Temp 98 F 09/03/18 03:15 Pulse 64 09/03/18 15:48 Resp 18 09/03/18 15:41 BP 112/62 09/03/18 15:41 Pulse Ox 100 09/03/18 15:41 Intake & Output 09/02/18 09/03/18 09/03/18 18:59 06:59 18:59 Intake Total 830 470 360 Balance 830 470 360 Weight 74 kg 78.5 kg Intake: Oral 830 470 360 Other: # Voids 0 1 # Bowel Movements 1 - Exam GENERAL EXAM: Alert, pleasant, 72-year-old white male room air comfortable in no apparent distress. HEAD: Normocephalic/atraumatic. EYES: Normal reaction of pupils, equal size. Conjunctiva pink, sclera white. NOSE: Clear with pink turbinates. THROAT: No erythema or exudates. NECK: No masses, no JVD, no thyroid enlargement, no adenopathy. CHEST: No chest wall deformity. Symmetrical expansion. Right upper chest subclavian hemodialysis catheter in place LUNGS: Equal air entry with no crackles, wheeze, rhonchi or dullness. CVS: Regular rate and rhythm, normal S1 and S2, no gallops, no murmurs, no rubs ABDOMEN: Soft, nontender. No hepatosplenomegaly, normal bowel sounds, no guarding or rigidity. EXTREMITIES: No clubbing, 2+ lower extremity edema, no cyanosis, 2+ pulses and upper and lower extremities. MUSCULOSKELETAL: Muscle strength and tone normal. SPINE: No scoliosis or deformity SKIN: No rashes CENTRAL NERVOUS SYSTEM: Alert and oriented -3. No focal deficits, tone is normal in all 4 extremities. PSYCHIATRIC: Alert and oriented -3. Appropriate affect. Intact judgment and insight. - Labs CBC & Chem 7: 09/03/18 05:52 09/03/18 05:52 Labs: Abnormal Lab Results - Last 24 Hours (Table) 09/02/18 09/02/18 09/02/18 Range/Units 08:56 17:08 21:00 RBC (4.30-5.90) m/uL Hgb (13.0-17.5) gm/dL Hct (39.0-53.0) % MCHC (31.0-37.0) g/dL RDW (11.5-15.5) % Lymphocytes # (1.0-4.8) k/uL BUN (9-20) mg/dL Creatinine (0.66-1.25) mg/dL POC Glucose (mg/dL) 132 H 103 H (75-99) mg/dL Iron 20 L (65-175) ug/dL TIBC 143 L (228-460) ug/dL Iron Saturation 13.99 L (15.00-50.00) Ferritin 1560.4 H (22.0-322.0) ng/mL AST (17-59) U/L ALT (21-72) U/L Alkaline Phosphatase (38-126) U/L Total Protein (6.3-8.2) g/dL Albumin (3.5-5.0) g/dL 09/03/18 09/03/18 09/03/18 Range/Units 05:52 05:52 11:15 RBC 3.03 L (4.30-5.90) m/uL Hgb 8.0 L (13.0-17.5) gm/dL Hct 27.2 L (39.0-53.0) % MCHC 29.4 L (31.0-37.0) g/dL RDW 18.2 H (11.5-15.5) % Lymphocytes # 0.4 L (1.0-4.8) k/uL BUN 25 H (9-20) mg/dL Creatinine 2.03 H (0.66-1.25) mg/dL POC Glucose (mg/dL) 152 H (75-99) mg/dL Iron (65-175) ug/dL TIBC (228-460) ug/dL Iron Saturation (15.00-50.00) Ferritin (22.0-322.0) ng/mL AST 13 L (17-59) U/L ALT 17 L (21-72) U/L Alkaline Phosphatase 133 H (38-126) U/L Total Protein 4.3 L (6.3-8.2) g/dL Albumin 2.3 L (3.5-5.0) g/dL Microbiology - Last 24 Hours (Table) 09/01/18 18:50 Blood Culture - Preliminary Blood No Growth after 24 hours Assessment and Plan Plan: Assessment: #1. Acute exacerbation of chronic diastolic congestive heart failure. Chest x- ray showed interstitial edema, bilateral pleural effusions, is consistent with fluid overload and CHF exacerbation, BNP level 133,000 #2. Acute mental status changes, weakness, fatigue, alert and oriented 3 this morning. #3. Chronic congestive heart failure with diastolic dysfunction, most recent echocardiogram showed EF of 45-50%, severe mitral regurgitation, and moderate pulmonary hypertension #4. End-stage renal disease on hemodialysis, on the Saturday schedule #5. 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 History of renal transplant in 2010 with subsequent transplant failure #7. Occasional smoker of cigars and cigarettes #8. History of COPD Plan Patient just had an echo done in July of this year, we will not repeat an echo on this admission. He is scheduled to undergo dialysis today and again tomorrow. Repeat chest x-ray showed improvement. We will follow this patient along with you now on an as-needed basis only, please on hesitate to call with any questions. DNP note has been reviewed, I agree with a documented findings and plan of care. Patient was seen and examined.
[2018-09-03 16:42] LABS: Glucose,Whole Blood 106 mg/dL (75-99)
[2018-09-03] MEDS: ASPIRIN 81 MG PO SCH (16:59)
[2018-09-03] MEDS: MULTIVITAMINS, THERA 1 EACH TAB PO SCH (16:59)
[2018-09-03] MEDS ORDERED: LEVOFLOXACIN 750 MG TAB PO SCH (19:00)
[2018-09-03] MEDS: ATORVASTATIN 20 MG TAB PO SCH (20:56)
[2018-09-03] MEDS: POLYETHYLENE GLYCOL 3350 17 GM POWD.PACK PO SCH (20:57)
[2018-09-03 21:05] LABS: Glucose,Whole Blood 95 mg/dL (75-99)
[2018-09-04] MEDS: COLLAGENASE 250 UNIT/GM OINTMENT 30 GM TUBE TOPICAL SCH (01:15)
[2018-09-04] MEDS: PIPERACILLIN-TAZOBACTAM 3.375 GM in SODIUM CHLORIDE 0.9% 100 ML IVPB SCH ×4 (02:31→23:34)
[2018-09-04] MEDS: HYDROcodone/APAP 10-325MG 1 EACH TAB PO PRN ×2 (02:36→18:28)
[2018-09-04] MEDS: VALACYCLOVIR PO SCH ×3 (03:50→21:25)
[2018-09-04 06:15] LABS: Glucose,Whole Blood 91 mg/dL (75-99)
[2018-09-04] MEDS: INSULIN ASPART (NovoLOG) 100 UNIT/ML VIAL SQ SCH ×4 (06:16→20:46)
[2018-09-04 06:56] LABS: Anisocytosis Slight; Basophils % (A) 0 %; Eosinophils # (A) 0.3 k/uL (0-0.7); Eosinophils % (A) 6 %; HCT 27.7 % (39.0-53.0); HGB 8.4 gm/dL (13.0-17.5); Hypochromasia Marked; Lymphocytes # (A) 0.4 k/uL (1.0-4.8); Lymphocytes % (A) 8 %; MCH 26.6 pg (25.0-35.0); MCHC 30.4 g/dL (31.0-37.0); MCV 87.4 fL (80.0-100.0); Mean Platelet Volume 6.6; Monocytes # (A) 0.4 k/uL (0-1.0); Monocytes % (A) 7 %; Neutrophils % (A) 76 %; Platelet Count 374 k/uL (150-450); RBC 3.17 m/uL (4.30-5.90); RDW 18.3 % (11.5-15.5); WBC 5.3 k/uL (3.8-10.6)
[2018-09-04 07:25] LABS: Albumin 2.3 g/dL (3.5-5.0); Calcium 8.4 mg/dL (8.4-10.2); Potassium 4.9 mmol/L (3.5-5.1); Total Bilirubin 0.6 mg/dL (0.2-1.3); Total Protein 4.4 g/dL (6.3-8.2)
[2018-09-04] MEDS: IPRATROPIUM-ALBUTEROL 3 ML NEB INHALATION SCH ×4 (07:38→19:31)
--- NOTE | 2018-09-04 08:34 | CONS ---
CONSULTATION DATE OF SERVICE: 09/03/2018 REASON FOR CONSULTATION: Fever. HISTORY OF PRESENT ILLNESS: The patient is a 72-year-old male who has been brought into the ER from the correction with concern for fever and mental status changes. This patient did have history of renal failure on hemodialysis. Patient denies having any headache or urinary symptoms. Patient denies having any chest pain or shortness of breath. He did have very minimal cough, not bringing up any sputum. Patient denies having any nausea, vomiting. No abdominal pain or any diarrhea. The patient is complaining of some soreness in the low back area. More of a dull aching pain, 2-3 ruptured and no radiation. The patient did have significant swelling in the legs but denies having any open wound or any redness with these symptoms, the patient has been evaluated by the ER physician. On arrival to the ER, the patient did have a low-grade fever of 99.9. The patient for further workup including a white count has been normal. Influenza serology was negative. Liver enzymes not elevated. He did have a blood culture which has been negative. Patient did have a chest x-ray on admission which shows features of CHF with focal bibasilar opacity with increased or pneumonia. The patient has been treated with Zosyn and Levaquin. Infectious Disease was consulted for further recommendation of antibiotic therapy. Patient overall mentioned feeling much better this is has been admitted to the hospital. REVIEW OF SYSTEMS: Positive points have been mentioned in HPI. Rest of systems has been negative. PAST MEDICAL HISTORY: COPD/asthma, heart failure, diabetes mellitus, gastroesophageal reflux disease, hypertension, hyperlipidemia, multiple culture with pneumonia. Previous history of seizure disorder, end-stage disease on hemodialysis and liver failure. PAST SURGICAL HISTORY: PTCA with stent in 2 transplant kidney transplant failed left from ruptured for dialysis. SOCIAL HISTORY: Remote history of smoking no drinking drug use. FAMILY HISTORY: Father history of cancer, hypertension. Mother has diabetes and hypertension history codeine and erythromycin. MEDICATIONS: Medications currently include the patient is on [place], DuoNeb, Zyloprim, aspirin, Lipitor, Dulcolax, vitamin D3, Colace, Lovenox, Lasix, hydralazine, NovoLog, , Levaquin, Zosyn Theragran and prednisone. PHYSICAL EXAMINATION: Blood pressure 144/59 with a pulse of 66, temperature 97.7, T-max 99, he is 100% on room air. General description is an elderly male, lying in bed in no distress. No tachypnea or accessory muscle for respiration use. HEENT: Shows slight pallor, no scleral icterus. Oral mucous membranes moist. No pharyngeal erythema, no thrush. NECK: Tracheal midline, no thyromegaly. LUNGS: Unlabored breathing, decreased breath sounds at the base, no wheeze. HEART: S1, S2. Regular rate and rhythm. ABDOMEN: Soft, no tenderness. No vomiting. Extremities with 3+ edema of the feet, currently with no evidence of any open wound or cellulitis. Examination of sacral area, the patient did have a slight sacral excoriation, but no open wound or any cellulitis. NEUROLOGICAL: Patient is awake, alert, oriented, mood and affect normal. LABS: Hemoglobin is 8 2 with white count 5.5. BUN of 25, creatinine 2.3. Electrolytes has been normal. Liver enzymes are normal. Blood culture obtained currently pending. DIAGNOSTIC IMPRESSION AND PLAN: Patient admitted to the hospital with fever and mental status changes and this patient. has been treated with Zosyn and Levaquin with subsequent resolution of his fever as well as the source of the fever, possible pneumonia less likely but not entirely excluded. Currently we do not have any other clinical focus of infection and the patient's abdomen was soft on clinical examination. Lower extremity swelling but no cellulitis and no evidence of saccular wound or cellulitis. PLAN: 1. Repeat a chest x-ray, likely tomorrow. 2. Continue patient currently on Zosyn and Levaquin to which the patient's fever has responded. 3. both legs to keep the swelling down. 4. Will follow on his clinical condition and culture to further adjust medication if needed. Thank you for this consultation. Will follow this patient along with you. MMODL / IJN: [id number] /
--- NOTE | 2018-09-04 08:54 | XR ---
EXAMINATION TYPE: XR chest 2V DATE OF EXAM: 09/04/2018 COMPARISON: Prior chest x-ray 09/02/2018 HISTORY: Pneumonia TECHNIQUE: Frontal and lateral views of the chest are obtained. FINDINGS: Right jugular central venous catheter is in place. No pneumothorax. Postop change noted to the left shoulder. There is some improvement in aeration at the right lung base. Cardiac mediastinal silhouette, pulmonary vascularity and kay are stable. Difficult to exclude small effusion. Intersti tium mildly increased. IMPRESSION: There is some improvement in aeration. Possible small effusions and associated atelectas is. Correlate for possible volume overload. Follow-up recommended.
[2018-09-04] MEDS: ALLOPURINOL 100 MG TAB PO SCH (09:43)
[2018-09-04] MEDS: ENOXAPARIN 40 MG/0.4 ML SYRINGE SQ SCH (09:43)
[2018-09-04] MEDS: MYCOPHENOLATE MOFETIL 250 MG CAP PO SCH ×2 (09:43→20:54)
[2018-09-04] MEDS: hydrALAZINE HCL 25 MG TAB PO SCH ×3 (09:44→20:53)
[2018-09-04] MEDS: METOPROLOL TARTRATE 50 MG TAB PO SCH ×2 (09:44→20:53)
[2018-09-04] MEDS: SENNOSIDES-DOCUSATE SODIUM 1 EACH TAB PO SCH ×2 (09:44→20:53)
[2018-09-04] MEDS: MAGNESIUM OXIDE 400 MG TAB PO SCH ×2 (09:44→18:19)
[2018-09-04] MEDS: CHOLECALCIFEROL 1,000 UNIT TAB PO SCH (09:45)
[2018-09-04] MEDS: PANTOPRAZOLE 40 MG TABLET PO SCH (09:45)
[2018-09-04] MEDS: DOCUSATE 100 MG CAP PO SCH ×2 (09:45→18:19)
[2018-09-04] MEDS: FUROSEMIDE 80 MG TAB PO SCH ×3 (09:45→20:53)
[2018-09-04] MEDS: predniSONE 2.5 MG TAB PO SCH (09:46)
[2018-09-04 11:51] LABS: Glucose,Whole Blood 145 mg/dL (75-99)
--- NOTE | 2018-09-04 11:55 | P.PN ---
Subjective Patient is seen in follow-up for end-stage renal disease. He is maintained on hemodialysis on a Saturday schedule. His mentation is back to baseline. Hemodynamically stable. Admits to constipation. Edema has improved. Vital signs are stable. General: The patient appeared well nourished and normally developed. HEENT: Head exam is unremarkable. Neck is without jugular venous distension. LUNGS: Breath sounds decreased. HEART: Rate and Rhythm are regular. First and second heart sounds normal. No murmurs, rubs or gallops. ABDOMEN: Abdominal exam reveals normal bowel sounds. Non-tender and non- distended. No evidence of peritonitis. EXTREMITITES: !+ edema. Lower extremities wrapped. No obvious drainage. Objective - Vital Signs Vital signs: Vital Signs Temp 97.8 F 09/04/18 08:00 Pulse 72 09/04/18 11:16 Resp 16 09/04/18 11:05 BP 141/60 09/04/18 08:00 Pulse Ox 100 09/04/18 08:00 Intake & Output 09/03/18 09/04/18 09/04/18 18:59 06:59 18:59 Intake Total 480 750 240 Output Total 100 Balance 480 650 240 Weight 77.2 kg Intake: Intake, IV Titration 100 Amount Piperacillin-Tazobactam 3 100 .375 gm In Sodium Chloride 0.9% 100 ml @ 25 mls/hr IVPB Q8HR [facility] Rx# :[id number] Oral 480 650 240 Output: Urine 100 Other: # Voids 1 - Labs CBC & Chem 7: 09/04/18 06:03 09/04/18 06:03 Labs: Abnormal Lab Results - Last 24 Hours (Table) 09/03/18 09/04/18 09/04/18 Range/Units 16:34 06:03 06:03 RBC 3.17 L (4.30-5.90) m/uL Hgb 8.4 L (13.0-17.5) gm/dL Hct 27.7 L (39.0-53.0) % MCHC 30.4 L (31.0-37.0) g/dL RDW 18.3 H (11.5-15.5) % Lymphocytes # 0.4 L (1.0-4.8) k/uL Creatinine 1.78 H (0.66-1.25) mg/dL POC Glucose (mg/dL) 106 H (75-99) mg/dL AST 15 L (17-59) U/L Alkaline Phosphatase 127 H (38-126) U/L Total Protein 4.4 L (6.3-8.2) g/dL Albumin 2.3 L (3.5-5.0) g/dL 09/04/18 Range/Units 11:30 RBC (4.30-5.90) m/uL Hgb (13.0-17.5) gm/dL Hct (39.0-53.0) % MCHC (31.0-37.0) g/dL RDW (11.5-15.5) % Lymphocytes # (1.0-4.8) k/uL Creatinine (0.66-1.25) mg/dL POC Glucose (mg/dL) 145 H (75-99) mg/dL AST (17-59) U/L Alkaline Phosphatase (38-126) U/L Total Protein (6.3-8.2) g/dL Albumin (3.5-5.0) g/dL Microbiology - Last 24 Hours (Table) 09/01/18 18:50 Blood Culture - Preliminary Blood No Growth after 48 hours Assessment and Plan Plan: Assessment: 1. End-stage renal disease maintained on hemodialysis on a Saturday schedule. 2. Systolic CHF with ejection fraction of 45-50% with severe mitral regurgitation and moderate pulmonary hypertension. 3. Volume overload. Improved with ultrafiltration. 4. Status post failed kidney transplant. 5. Status post liver transplant maintained on immunosuppression. 6. Anemia of chronic kidney disease. Maintained on Aranesp. Iron deficiency noted. High ferritin level noted. 7. Pneumonia maintain on antibiotics. Influenza negative. Plan: Hemodialysis tomorrow. Will try for 4 L UF. Maintain current immunosuppression meds.
[2018-09-04] MEDS: GLYCERIN ADULT SUPPOSITORY 1 EACH RECTAL SCH (12:09)
[2018-09-04] MEDS: INSULN ASP PRT/INSULIN ASPART 100 UNIT/ML 10 ML VIAL SQ SCH ×2 (12:10→18:25)
--- NOTE | 2018-09-04 15:20 | P.PN ---
Subjective Progress Note Date: 09/04/18 This is a 72-year-old male patient who presented to the emergency room from [facility]. Patient presented with complaints of fever and altered mental status. Patient has a known past medical l history of asthma, cancer, heart failure, COPD, diabetes mellitus, GERD, end-stage renal disease, hyperlipidemia, hypertension, osteoarthritis, seizure disorder, CHF, liver transplant, kidney transplant in non-Hodgkin's lymphoma. Patient is hemodialysis Saturday. Patient reports that he's been having on and off fevers for the past couple days. Patient denies cough or sputum production. Patient's only main complaint is constipation. Chest x-ray completed in the ER showing correlation for fluid overload state and/or CHF exacerbation is very mildly cardiomegaly with persistent small to tiny pleural effusions and felt new mild bialteral intersitial edema. EKG performed in ER showing undetermined rhythm, left anterior fascicular block and nonspecific ST and T-wave abnormality. Patient has been started on Levaquin for IV antibiotics. Pulmonary services will be consulted. Cardiology and nephrology service is consulted. Blood and sputum cultures ordered. This time patient denies chest pain or shortness breath. Patient denies nausea vomiting or diarrhea. Patient denies any urinary burning or frequency. On 09/03/2018 patient is alert and oriented 3 resting comfortably in bed. Patient received hemodialysis yesterday. Infectious disease has been consulted due to patient's fever on admission. At this time patient denies chest pain or shortness breath. Patient denies nausea vomiting or diarrhea. Patient denies any urinary burning or frequency. On 09/04/2018 patient is alert and oriented resting comfortably in chair. Patient to receive hemodialysis tomorrow. Infectious disease has been consulted. Patient is currently on Zosyn and Levaquin. Blood culture currently negative. At this time patient denies chest pain or shortness breath. Patient denies nausea vomiting or diarrhea. Patient denies any urinary burning or frequency Objective - Vital Signs Vital signs: Vital Signs Temp 97.8 F 09/04/18 08:00 Pulse 72 09/04/18 11:16 Resp 16 09/04/18 11:05 BP 141/60 09/04/18 08:00 Pulse Ox 100 09/04/18 08:00 Intake & Output 09/03/18 09/04/18 09/04/18 18:59 06:59 18:59 Intake Total 480 750 480 Output Total 100 125 Balance 480 650 355 Weight 77.2 kg Intake: Intake, IV Titration 100 Amount Piperacillin-Tazobactam 3 100 .375 gm In Sodium Chloride 0.9% 100 ml @ 25 mls/hr IVPB Q8HR [facility] Rx# :[id number] Oral 480 650 480 Output: Urine 100 125 Other: # Voids 1 # Bowel Movements 0 - Exam Head normocephalic Neck supple Lungs diminished bilaterally Heart regular rate and rhythm S1-S2, no rub or gallop Abdomen is soft nontender soft rounded positive bowel sounds Extremities no edema Neuro alert and orientated to 3 - Labs CBC & Chem 7: 09/04/18 06:03 09/04/18 06:03 Labs: Abnormal Lab Results - Last 24 Hours (Table) 09/03/18 09/04/18 09/04/18 Range/Units 16:34 06:03 06:03 RBC 3.17 L (4.30-5.90) m/uL Hgb 8.4 L (13.0-17.5) gm/dL Hct 27.7 L (39.0-53.0) % MCHC 30.4 L (31.0-37.0) g/dL RDW 18.3 H (11.5-15.5) % Lymphocytes # 0.4 L (1.0-4.8) k/uL Creatinine 1.78 H (0.66-1.25) mg/dL POC Glucose (mg/dL) 106 H (75-99) mg/dL AST 15 L (17-59) U/L Alkaline Phosphatase 127 H (38-126) U/L Total Protein 4.4 L (6.3-8.2) g/dL Albumin 2.3 L (3.5-5.0) g/dL 09/04/18 Range/Units 11:30 RBC (4.30-5.90) m/uL Hgb (13.0-17.5) gm/dL Hct (39.0-53.0) % MCHC (31.0-37.0) g/dL RDW (11.5-15.5) % Lymphocytes # (1.0-4.8) k/uL Creatinine (0.66-1.25) mg/dL POC Glucose (mg/dL) 145 H (75-99) mg/dL AST (17-59) U/L Alkaline Phosphatase (38-126) U/L Total Protein (6.3-8.2) g/dL Albumin (3.5-5.0) g/dL Microbiology - Last 24 Hours (Table) 09/01/18 18:50 Blood Culture - Preliminary Blood No Growth after 48 hours Assessment and Plan Assessment: 1. Febrile illness with possible pneumonia. Influenza negative. Sputum and cultures ordered. Patient currently on Levaquin and Zosyn. Pulmonary services have been consulted. Chest x-ray completed showing improving CHF with minimal residual pulmonary vascular congestion and trace effusions. Focal bibasilar opacities however are increasing and could represent atelectasis or pneumonia. Per Pulmonary services.underlining pneumonia changes acutely consistent with changes of acute congestive heart failure and fluid overload. Will consult infectious disease due to patient's presentation with fever on admission. Patient remains on Levaquin and zosyn 2. Acute on chronic systolic congestive heart failure. Cardiology services have been consulted. Patient's home Lasix dose has been resumed recent 2-D echo completed showing EF of 45-50%. Per cardiology services no repeat echo on this admission 3. End-stage renal disease. Patient receives hemodialysis Saturday. Nephrology services are following 4. Mildly elevated troponins. Cardiology services consulted. Patient recently admitted and was worked up by cardiology at that time 5. History of coronary disease with stent placement 6. History of chronic proximal atrial fibrillation. During previous admission cardiology DC'd eliquis due to low hemoglobin 7. Diabetes mellitus type 2. Pulmonary services available at sliding scale. Previous hemoglobin A1c 7.58. 8. Status post kidney transplant in 2011 9. Status post liver transplant thousand 2005 10. History of non-Hodgkin's open 2006 11. History of hyperlipidemia 12. History of essential hypertension DVT prophylaxis Lovenox. GI prophylaxis Protonix I performed an examination of the patient and discussed their management with the Nurse Practitioner. I have reviewed the Nurse Practitioner's notes and agree with the documented findings and plan of care
[2018-09-04 16:31] LABS: Glucose,Whole Blood 176 mg/dL (75-99)
[2018-09-04] MEDS: ASPIRIN 81 MG PO SCH (18:19)
[2018-09-04] MEDS: MULTIVITAMINS, THERA 1 EACH TAB PO SCH (18:19)
[2018-09-04] MEDS: LACTULOSE 20 GM/30 ML CUP PO SCH ×2 (18:19→20:55)
[2018-09-04 20:45] LABS: Glucose,Whole Blood 106 mg/dL (75-99)
[2018-09-04] MEDS: POLYETHYLENE GLYCOL 3350 17 GM POWD.PACK PO SCH (20:53)
[2018-09-04] MEDS: TACROLIMUS 1 MG CAP PO SCH (20:53)
[2018-09-04] MEDS: ATORVASTATIN 20 MG TAB PO SCH (20:53)
--- NOTE | 2018-09-04 23:34 | PN ---
PROGRESS NOTE DATE OF SERVICE: 09/04/2018. REASON FOR FOLLOWUP: Fever, possible pneumonia. INTERVAL HISTORY: The patient is currently afebrile. The patient is breathing comfortably. Denies having any chest pain. Some shortness of breath, minimal cough. No nausea, no vomiting. No abdominal pain. No diarrhea. PHYSICAL EXAMINATION: Blood pressure 130/59 with a pulse of 68, temperature is 97.6. He is 98% on room air. General description is an elderly male up in the chair in no distress. Respiratory system: Unlabored breathing. Decreased breath sounds in the bases. No wheeze. Heart S1, S2. Regular rate and rhythm. Abdomen: Soft, no tenderness. Extremities: 2+ edema of feet. LABS: Hemoglobin 8.4, white count 5.3 with a BUN of 20, creatinine 1.78. Blood culture has been negative. DIAGNOSTIC IMPRESSION AND PLAN: 1. Patient with low-grade fever with concern for possible pneumonia. Currently on Zosyn. Blood culture negative. Unable to provide any sputum. We will consider short course of oral antibiotic on discharge. 2. The patient with sacroiliac excoriation. Continue local care with skin . Keep the area off the pressure. MMODL / IJN: [id number] /
[2018-09-05 08:39] LABS: Anisocytosis Slight; Basophils % (A) 0 %; Eosinophils # (A) 0.3 k/uL (0-0.7); Eosinophils % (A) 6 %; HCT 27.7 % (39.0-53.0); HGB 8.4 gm/dL (13.0-17.5); Hypochromasia Marked; Lymphocytes # (A) 0.4 k/uL (1.0-4.8); Lymphocytes % (A) 9 %; MCH 26.9 pg (25.0-35.0); MCHC 30.2 g/dL (31.0-37.0); Mean Platelet Volume 6.6; Monocytes # (A) 0.3 k/uL (0-1.0); Monocytes % (A) 6 %; Neutrophils # (A) 3.4 k/uL (1.3-7.7); Neutrophils % (A) 78 %; Platelet Count 361 k/uL (150-450); RBC 3.11 m/uL (4.30-5.90); RDW 18.2 % (11.5-15.5); WBC 4.4 k/uL (3.8-10.6)
--- NOTE | 2018-09-05 08:55 | P.PN ---
Subjective Patient is seen in follow-up for end-stage renal disease. He is maintained on hemodialysis on a Saturday schedule. His mentation is back to baseline. Hemodynamically stable. Edema has improved. Currently seen while undergoing hemodialysis. Vital signs are stable. General: The patient appeared well nourished and normally developed. HEENT: Head exam is unremarkable. Neck is without jugular venous distension. LUNGS: Breath sounds decreased. HEART: Rate and Rhythm are regular. First and second heart sounds normal. No murmurs, rubs or gallops. ABDOMEN: Abdominal exam reveals normal bowel sounds. Non-tender and non- distended. No evidence of peritonitis. EXTREMITITES: 1+ edema. Lower extremities wrapped. No obvious drainage. Objective - Vital Signs Vital signs: Vital Signs Temp 97.8 F 09/05/18 04:49 Pulse 78 09/05/18 04:49 Resp 16 09/05/18 04:49 BP 157/73 09/05/18 04:49 Pulse Ox 98 09/05/18 03:24 Intake & Output 09/04/18 09/05/18 09/05/18 18:59 06:59 18:59 Intake Total 720 100 Output Total 125 100 Balance 595 0 Weight 79.2 kg Intake: Intake, IV Titration 100 Amount Piperacillin-Tazobactam 3 100 .375 gm In Sodium Chloride 0.9% 100 ml @ 25 mls/hr IVPB Q8HR [facility] Rx# :[id number] Oral 720 Output: Urine 125 100 Other: Voiding Method Urinal # Voids 1 # Bowel Movements 0 - Labs CBC & Chem 7: 09/05/18 07:39 09/04/18 06:03 Labs: Abnormal Lab Results - Last 24 Hours (Table) 09/04/18 09/04/18 09/04/18 Range/Units 11:30 16:25 20:44 RBC (4.30-5.90) m/uL Hgb (13.0-17.5) gm/dL Hct (39.0-53.0) % MCHC (31.0-37.0) g/dL RDW (11.5-15.5) % Lymphocytes # (1.0-4.8) k/uL POC Glucose (mg/dL) 145 H 176 H 106 H (75-99) mg/dL 09/05/18 Range/Units 07:39 RBC 3.11 L (4.30-5.90) m/uL Hgb 8.4 L (13.0-17.5) gm/dL Hct 27.7 L (39.0-53.0) % MCHC 30.2 L (31.0-37.0) g/dL RDW 18.2 H (11.5-15.5) % Lymphocytes # 0.4 L (1.0-4.8) k/uL POC Glucose (mg/dL) (75-99) mg/dL Microbiology - Last 24 Hours (Table) 09/01/18 18:50 Blood Culture - Preliminary Blood No Growth after 72 hours Assessment and Plan Plan: Assessment: 1. End-stage renal disease maintained on hemodialysis on a Saturday schedule. 2. Systolic CHF with ejection fraction of 45-50% with severe mitral regurgitation and moderate pulmonary hypertension. 3. Volume overload. Improved with ultrafiltration. 4. Status post failed kidney transplant. 5. Status post liver transplant maintained on immunosuppression. 6. Anemia of chronic kidney disease. Maintained on Aranesp. Iron deficiency noted. High ferritin level noted. 7. Pneumonia maintain on antibiotics. Influenza negative. Plan: Currently seen while undergoing hemodialysis. Next treatment on Saturday. Maintain current immunosuppression meds.
[2018-09-05 09:03] LABS: Albumin 2.4 g/dL (3.5-5.0); Calcium 8.4 mg/dL (8.4-10.2); Potassium 4.9 mmol/L (3.5-5.1); Total Bilirubin 0.5 mg/dL (0.2-1.3); Total Protein 4.6 g/dL (6.3-8.2)
[2018-09-05] MEDS: IPRATROPIUM-ALBUTEROL 3 ML NEB INHALATION SCH ×4 (09:51→17:29)
[2018-09-05 09:52] VITALS: RESP 26
[2018-09-05] MEDS: CHOLECALCIFEROL 1,000 UNIT TAB PO SCH (09:54)
[2018-09-05] MEDS: METOPROLOL TARTRATE 50 MG TAB PO SCH (09:55)
[2018-09-05] MEDS: hydrALAZINE HCL 25 MG TAB PO SCH ×2 (09:55→17:59)
[2018-09-05] MEDS: SENNOSIDES-DOCUSATE SODIUM 1 EACH TAB PO SCH (09:55)
[2018-09-05] MEDS: MULTIVITAMINS, THERA 1 EACH TAB PO SCH (09:55)
[2018-09-05] MEDS: MAGNESIUM OXIDE 400 MG TAB PO SCH ×2 (09:55→17:59)
[2018-09-05] MEDS: TACROLIMUS 1 MG CAP PO SCH (09:56)
[2018-09-05] MEDS: predniSONE 2.5 MG TAB PO SCH (09:56)
[2018-09-05] MEDS: PANTOPRAZOLE 40 MG TABLET PO SCH (09:56)
[2018-09-05] MEDS: ENOXAPARIN 40 MG/0.4 ML SYRINGE SQ SCH (09:56)
[2018-09-05] MEDS: DOCUSATE 100 MG CAP PO SCH ×2 (09:56→17:59)
[2018-09-05] MEDS: ALLOPURINOL 100 MG TAB PO SCH (09:56)
[2018-09-05] MEDS: LACTULOSE 20 GM/30 ML CUP PO SCH ×2 (09:57→17:52)
[2018-09-05] MEDS: GLYCERIN ADULT SUPPOSITORY 1 EACH RECTAL SCH (09:57)
[2018-09-05] MEDS: INSULIN ASPART (NovoLOG) 100 UNIT/ML VIAL SQ SCH ×2 (10:00→12:32)
[2018-09-05] MEDS: VALACYCLOVIR PO SCH ×2 (10:00→10:29)
[2018-09-05] MEDS: INSULN ASP PRT/INSULIN ASPART 100 UNIT/ML 10 ML VIAL SQ SCH (10:04)
[2018-09-05] MEDS: MYCOPHENOLATE MOFETIL 250 MG CAP PO SCH (10:04)
[2018-09-05] MEDS: COLLAGENASE 250 UNIT/GM OINTMENT 30 GM TUBE TOPICAL SCH (10:31)
[2018-09-05] MEDS: FUROSEMIDE 80 MG TAB PO SCH ×2 (12:24→17:52)
[2018-09-05] MEDS: PIPERACILLIN-TAZOBACTAM 3.375 GM in SODIUM CHLORIDE 0.9% 100 ML IVPB SCH ×2 (12:24→17:53)
[2018-09-05 12:35] LABS: Glucose,Whole Blood 164 mg/dL (75-99)
[2018-09-05 13:28] VITALS: TEMP 98.9
--- NOTE | 2018-09-05 14:07 | PN ---
PROGRESS NOTE DATE OF SERVICE: 09/05/2018 REASON FOR FOLLOWUP: Possible fever, possible pneumonia. INTERVAL HISTORY: The patient is currently afebrile. The patient is breathing comfortably. Denies having any chest pain or shortness of breath. Minimal cough. No abdominal pain. No diarrhea. He did have swelling of the legs, but no redness. No open wound or any drainage. PHYSICAL EXAMINATION: On examination, blood pressure 137/74 with the pulse of 87, temperature 98.9. He is 100% on room air. General description is an elderly male lying in bed in no distress. RESPIRATORY SYSTEM: Unlabored breathing with decreased breath sounds at the bases. No wheeze. HEART: S1, S2. Regular rate and rhythm. ABDOMEN: Soft, no tenderness. LEGS: With 2+ edema of feet. LABS: Hemoglobin 8.4, white count 4.4, BUN of 24, creatinine is 2.21. DIAGNOSTIC IMPRESSION AND PLAN: Patient with low-grade fever in a patient with difficulty breathing and concern for possible left-sided pneumonia. The patient's culture currently negative. We advised however he has drug interaction with Prograf hence we will get a short course of oral. I would maintain kidney function and close outpatient followup. MMODL / IJN: [id number] /
--- NOTE | 2018-09-05 14:21 | P.DS ---
Providers Date of admission: 09/01/18 18:15 Expected date of discharge: 09/05/18 Attending physician: Jayla Mahmood Consults: 09/01/18 18:14 Consult Physician Routine Consulting Provider: Phoebe Rico Consult Reason/Comments: chf Do you want consulting provider notified?: Yes Consult Physician Routine Consulting Provider: Kerrie Pham Consult Reason/Comments: arf Do you want consulting provider notified?: Yes 09/02/18 11:02 Consult Physician Routine Consulting Provider: Stefanie Stevenson Consult Reason/Comments: [place] Do you want consulting provider notified?: Yes 09/03/18 15:14 Consult Physician Routine Consulting Provider: Skyler Benson Consult Reason/Comments: Fever on admission Do you want consulting provider notified?: Yes Primary care physician: Jayla Mahmood [facility] Course: Discharge diagnosis 1. Febrile illness with possible pneumonia. Influenza negative. Sputum and cultures ordered. Patient currently on Levaquin and Zosyn. Pulmonary services have been consulted. Chest x-ray completed showing improving CHF with minimal residual pulmonary vascular congestion and trace effusions. Focal bibasilar opacities however are increasing and could represent atelectasis or pneumonia. Per Pulmonary services.underlining pneumonia changes acutely consistent with changes of acute congestive heart failure and fluid overload. Will consult infectious disease due to patient's presentation with fever on admission. Blood culture currently showing no growth. Patient has been afebrile. Discussed with infectious disease Dr. Benson. Patient will be DC'd on Augmentin pharmacy dose to renal dosing. Patient has been cleared for discharge 2. Acute on chronic systolic congestive heart failure. Cardiology services have been consulted. Patient's home Lasix dose has been resumed recent 2-D echo completed showing EF of 45-50%. Per cardiology services no repeat echo on this admission 3. End-stage renal disease. Patient receives hemodialysis Saturday. Nephrology services are following 4. Mildly elevated troponins. Cardiology services consulted. Patient recently admitted and was worked up by cardiology at that time 5. History of coronary disease with stent placement 6. History of chronic proximal atrial fibrillation. During previous admission cardiology DC'd eliquis due to low hemoglobin 7. Diabetes mellitus type 2. Pulmonary services available at sliding scale. Previous hemoglobin A1c 7.58. 8. Status post kidney transplant in 2011 9. Status post liver transplant thousand 2005 10. History of non-Hodgkin's open 2006 11. History of hyperlipidemia 12. History of essential hypertension Hospital course This is a 72-year-old male patient who presented to the emergency room from [facility]. Patient presented with complaints of fever and altered mental status. Patient has a known past medical l history of asthma, cancer, heart failure, COPD, diabetes mellitus, GERD, end-stage renal disease, hyperlipidemia, hypertension, osteoarthritis, seizure disorder, CHF, liver transplant, kidney transplant in non-Hodgkin's lymphoma. Patient is hemodialysis Saturday. Patient reports that he's been having on and off fevers for the past couple days. Patient denies cough or sputum production. Patient's only main complaint is constipation. Chest x-ray completed in the ER showing correlation for fluid overload state and/or CHF exacerbation is very mildly cardiomegaly with persistent small to tiny pleural effusions and felt new mild bialteral intersitial edema. EKG performed in ER showing undetermined rhythm, left anterior fascicular block and nonspecific ST and T-wave abnormality. Patient has been started on Levaquin for IV antibiotics. Pulmonary services will be consulted. Cardiology and nephrology service is consulted. Blood and sputum cultures ordered. This time patient denies chest pain or shortness breath. Patient denies nausea vomiting or diarrhea. Patient denies any urinary burning or frequency. On 09/03/2018 patient is alert and oriented 3 resting comfortably in bed. Patient received hemodialysis yesterday. Infectious disease has been consulted due to patient's fever on admission. At this time patient denies chest pain or shortness breath. Patient denies nausea vomiting or diarrhea. Patient denies any urinary burning or frequency. On 09/04/2018 patient is alert and oriented resting comfortably in chair. Patient to receive hemodialysis tomorrow. Infectious disease has been consulted. Patient is currently on Zosyn and Levaquin. Blood culture currently negative. At this time patient denies chest pain or shortness breath. Patient denies nausea vomiting or diarrhea. Patient denies any urinary burning or frequency On 09/05/2018 patient is alert and oriented status post dialysis. Patient denies any significant complaints at this time. Vitals have been stable. Patient to be DC'd back to [facility] today. Patient has been cleared by consulting providers. Patient will be DC'd on Augmentin. At this time patient denies nausea vomiting or diarrhea. Denies any urinary burning or frequency. Denies chest pain or shortness of breath I performed an examination of the patient and discussed their management with the Nurse Practitioner. I have reviewed the Nurse Practitioner's notes and agree with the documented findings and plan of care Patient Condition at Discharge: Stable Plan - Discharge Summary New Discharge Prescriptions: New Glycerin Adult Suppository 1 each RECTAL DAILY supp Ipratropium-Albuterol Nebulize [Duoneb 0.5 mg-3 mg/3 ml Soln] 3 ml INHALATION RT-QID ampul.neb Lactulose [Cephulac] 15 gm PO TID ml Polyethylene Glycol 3350 [Miralax] 17 gm PO HS powd.pack Sennosides-Docusate Sodium [Senokot-S] 1 each PO BID tab Amoxicillin/Potassium Clav [Augmentin 500-125 Tablet] 1 tab PO DAILY 14 Days #20 tab Continue Atorvastatin [Lipitor] 20 mg PO HS@2100 Tacrolimus [Prograf] 3 mg PO QAM Allopurinol [Zyloprim] 100 mg PO DAILY@0800 Tacrolimus [Prograf] 4 mg PO HS hydrALAZINE HCL [Apresoline] 25 mg PO TID #90 tab Metoprolol Tartrate [Lopressor] 50 mg PO HS@2100 Furosemide [Lasix] 80 mg PO TID Mycophenolate Mofetil [Cellcept] 500 mg PO BID@0800,2100 Cholecalciferol (Vitamin D3) [Vitamin D3] 2,000 unit PO DAILY@0800 Multivitamins, Thera [Multivitamin (formulary)] 1 tab PO DAILY@1700 Magnesium Oxide [Mag-Ox] 400 mg PO BID@0800,1700 Insulin Aspart Protam & Aspart [NovoLOG MIX 70-30 Flexpen] 10 unit SQ BID@ 0800,1700 predniSONE 2.5 mg PO DAILY@0800 Collagenase [Santyl] 1 applic TOPICAL DAILY Mineral Oil [Fleet Mineral Oil] 133 ml RECTAL DAILY PRN PRN Reason: Constipation Magnesium Hydroxide [Milk of Magnesia] 2,400 mg PO DAILY PRN PRN Reason: Constipation Bisacodyl [Dulcolax] 10 mg RECTAL DAILY PRN PRN Reason: Constipation Valacyclovir 400mg 400 mg PO TID@0600,1400,2100 Nepro 1 can PO BID-W/MEALS Metoprolol Tartrate [Lopressor] 100 mg PO DAILY@0800 Pantoprazole [Protonix] 40 mg PO DAILY@0800 Docusate [Colace] 100 mg PO BID@0800,1700 Darbepoetin Feliberto [Aranesp] 40 mcg SQ WE Aspirin 81 mg PO DAILY@1700 INSULIN ASPART (NovoLOG) [NovoLOG (formulary)] See Protocol SQ ACHS HYDROcodone/APAP 10-325MG [[place] 10-325] 1 tab PO TID #9 tab Discontinued Cephalexin [Keflex] 500 mg PO Q12HR 7 Days #14 cap Clotrimazole Cristian [Mycelex Cristian] 10 mg MUCOUS MEM 5XD Discharge Medication List Atorvastatin [Lipitor] 20 mg PO HS@209908/18/14 [History] Tacrolimus [Prograf] 3 mg PO QAM 08/18/14 [History] Allopurinol [Zyloprim] 100 mg PO DAILY@0800 10/10/16 [History] Tacrolimus [Prograf] 4 mg PO HS 11/26/16 [History] hydrALAZINE HCL [Apresoline] 25 mg PO TID #90 tab 11/29/16 [Rx] Metoprolol Tartrate [Lopressor] 50 mg PO HS@209912/25/16 [History] Cholecalciferol (Vitamin D3) [Vitamin D3] 2,000 unit PO DAILY@0800 08/05/18 [ History] Furosemide [Lasix] 80 mg PO TID 08/05/18 [History] Insulin Aspart Protam & Aspart [NovoLOG MIX 70-30 Flexpen] 10 unit SQ BID@0800, 1700 08/05/18 [History] Magnesium Oxide [Mag-Ox] 400 mg PO BID@0800,1700 08/05/18 [History] Multivitamins, Thera [Multivitamin (formulary)] 1 tab PO DAILY@17008/05/18 [ History] Mycophenolate Mofetil [Cellcept] 500 mg PO BID@0800,209908/05/18 [History] predniSONE 2.5 mg PO DAILY@0800 08/05/18 [History] Aspirin 81 mg PO DAILY@1700 09/01/18 [History] Bisacodyl [Dulcolax] 10 mg RECTAL DAILY PRN 09/01/18 [History] Collagenase [Santyl] 1 applic TOPICAL DAILY 09/01/18 [History] Darbepoetin Feliberto [Aranesp] 40 mcg SQ WE 09/01/18 [History] Docusate [Colace] 100 mg PO BID@0800,1700 09/01/18 [History] INSULIN ASPART (NovoLOG) [NovoLOG (formulary)] See Protocol SQ ACHS 09/01/18 [ History] Magnesium Hydroxide [Milk of Magnesia] 2,400 mg PO DAILY PRN 09/01/18 [History] Metoprolol Tartrate [Lopressor] 100 mg PO DAILY@0800 09/01/18 [History] Mineral Oil [Fleet Mineral Oil] 133 ml RECTAL DAILY PRN 09/01/18 [History] Nepro 1 can PO BID-W/MEALS 09/01/18 [History] Pantoprazole [Protonix] 40 mg PO DAILY@0800 09/01/18 [History] Valacyclovir 400mg 400 mg PO TID@0600,1400,2100 09/01/18 [History] Amoxicillin/Potassium Clav [Augmentin 500-125 Tablet] 1 tab PO DAILY 14 Days # 20 tab 09/05/18 [Rx] Glycerin Adult Suppository 1 each RECTAL DAILY supp 09/05/18 [Rx] HYDROcodone/APAP 10-325MG [[place] 10-325] 1 tab PO TID #9 tab 09/05/18 [Rx] Ipratropium-Albuterol Nebulize [Duoneb 0.5 mg-3 mg/3 ml Soln] 3 ml INHALATION RT -QID ampul.neb 09/05/18 [Rx] Lactulose [Cephulac] 15 gm PO TID ml 09/05/18 [Rx] Polyethylene Glycol 3350 [Miralax] 17 gm PO HS powd.pack 09/05/18 [Rx] Sennosides-Docusate Sodium [Senokot-S] 1 each PO BID tab 09/05/18 [Rx] Follow up Appointment(s)/Referral(s): [facility] [Provider Group] - 1 Week Mary Burns [NON-STAFF] - 1 Week (F discharge plan.) Jayla Mahmood MD [Primary Care Provider] - 1-2 days Stefanie Stevenson MD [STAFF PHYSICIAN] - 1 Week Patient Instructions/Handouts: Heart Failure (DC), Heart Healthy Diet (DC) Discharge Disposition: TRANSFER TO SNF/ECF
[2018-09-05 15:59] VITALS: BP 146/74
[2018-09-05 16:16] LABS: Glucose,Whole Blood 135 mg/dL (75-99)
[2018-09-05 17:42] VITALS: PULSE 68
[2018-09-05] MEDS: HYDROcodone/APAP 10-325MG 1 EACH TAB PO PRN (17:59)
[2018-09-05] MEDS: ASPIRIN 81 MG PO SCH (17:59)
--- NOTE | 2018-09-08 09:08 | CDI ---
Documentation Clarification Form Date: 09/08/18 From: Aleksandra De Guzman Phone: If you have a question regarding this query, please contact Yuli Collazo at [phone] between 8am and 5pm. Admit Date: 09/01/2018 6:15:00 PM Patient Name: Chester Martins Visit Number: [id number] Discharge Date: 09/05/2018 8:00:00 PM ATTENTION: The Clinical Documentation Specialists (CDI) and [employer] Coding Staff appreciate your assistance in clarifying documentation. Please respond to the clarification below the line at the bottom and electronically sign. The CDI & [employer] Coding staff will review the response and follow-up if needed. Please note: Queries are made part of the Legal Health Record. If you have any questions, please contact the author of this message via ITS. LYNNE Hernandez/Dr. Jayla Mahmood Altered Mental Status was documented in the ED note, H&P, consult notes and discharge summary. History/Risk Factors: The patient was admitted for acute exacerbation of systolic CHF and possibly pneumonia. The patient also has a history of failed kidney transplant on hemodialysis, diabetes, mitral vavlve regurgitation and hypertension. Clinical Indicators: altered mental status, confusion Labs: Carbon dioxide 31, creatinine 1.53, alk phos 196, WBC 10.0, neutrophils 8.9, Hgb/Hct 9.4/32.6 X Ray: Correlate for fluid overload state and/or CHF exacerbation as there is mild cardiomegaly with persistent small to tiny bilateral pleural effusions and felt new mild bilateral interstitial edema. Treatment: IV Levaquin, IV Zosyn, PO Cephulac In your professional opinion, please clarify the etiology of the Altered Mental Status, if known. Delirium (specify cause): Dementia (if know, specify Type and if with/without Behavioral Disturbance) ____ ___ Encephalopathy (specify Type and Underlying Medical Illness) Other condition (please specify) Unable to determine Unable to determine MTDD
== END 2018-09-05 20:00 | DRG 291 ==
LOC: EC 13:13 → 3SCARD 18:15 → 4SSUR 09-05 03:17
PROVIDERS: ADMIT Internal Medicine; ATTEND Internal Medicine
PROC: 5A1D70Z Performance of Urinary Filtration, Intermittent, Less than 6 Hours Per Day (ICD-10-PCS; principal; 2018-09-01)
DX: I13.2 Hypertensive heart and chronic kidney disease with heart failure and with stage 5 chronic kidney disease, or end stage renal disease (principal); I50.23 Acute on chronic systolic (congestive) heart failure; J18.9 Pneumonia, unspecified organism; N18.6 End stage renal disease; J44.0 Chronic obstructive pulmonary disease with (acute) lower respiratory infection; J44.1 Chronic obstructive pulmonary disease with (acute) exacerbation; T86.12 Kidney transplant failure; Z94.4 Liver transplant status; I95.9 Hypotension, unspecified; E11.22 Type 2 diabetes mellitus with diabetic chronic kidney disease; I27.20 Pulmonary hypertension, unspecified; E11.65 Type 2 diabetes mellitus with hyperglycemia; I08.1 Rheumatic disorders of both mitral and tricuspid valves; D63.1 Anemia in chronic kidney disease; R41.82 Altered mental status, unspecified; G40.909 Epilepsy, unspecified, not intractable, without status epilepticus; I44.4 Left anterior fascicular block; I44.7 Left bundle-branch block, unspecified; I48.0 Paroxysmal atrial fibrillation; E61.1 Iron deficiency; E78.5 Hyperlipidemia, unspecified; I25.10 Atherosclerotic heart disease of native coronary artery without angina pectoris; F17.210 Nicotine dependence, cigarettes, uncomplicated; F17.290 Nicotine dependence, other tobacco product, uncomplicated; K21.9 Gastro-esophageal reflux disease without esophagitis; K59.00 Constipation, unspecified; M19.90 Unspecified osteoarthritis, unspecified site; R77.9 Abnormality of plasma protein, unspecified; Z79.4 Long term (current) use of insulin; Z79.82 Long term (current) use of aspirin; Z79.899 Other long term (current) drug therapy; Z79.52 Long term (current) use of systemic steroids; Z99.2 Dependence on renal dialysis; Z95.5 Presence of coronary angioplasty implant and graft; Z85.72 Personal history of non-Hodgkin lymphomas; Z88.1 Allergy status to other antibiotic agents; Z88.5 Allergy status to narcotic agent; Z91.018 Allergy to other foods; Z86.14 Personal history of Methicillin resistant Staphylococcus aureus infection; Z98.42 Cataract extraction status, left eye; Z98.41 Cataract extraction status, right eye; Z96.1 Presence of intraocular lens; Z87.01 Personal history of pneumonia (recurrent); Z82.49 Family history of ischemic heart disease and other diseases of the circulatory system; Z83.3 Family history of diabetes mellitus; Z80.9 Family history of malignant neoplasm, unspecified; Y83.0 Surgical operation with transplant of whole organ as the cause of abnormal reaction of the patient, or of later complication, without mention of misadventure at the time of the procedure
CPT/HCPCS: 36415; 71046; 80053; 82140; 82728; 83540; 83550; 83880; 84484; 85025; 85610; 85730; 87040; 87502; 90935; 93005; 94640; 94760; 96365; 96366; 96367; 96375; 99285

== ENCOUNTER 2018-09-27 01:02 | Emergency (ER) | payer BC, MEDICARE ==
[2018-09-27 01:13] VITALS: TEMP 99.9
[2018-09-27 01:50] LABS: Anisocytosis Slight; Basophils % (A) 0 %; Eosinophils # (A) 0.2 k/uL (0-0.7); Eosinophils % (A) 3 %; HCT 34.4 % (39.0-53.0); HGB 10.2 gm/dL (13.0-17.5); Hypochromasia Marked; Lymphocytes # (A) 0.6 k/uL (1.0-4.8); Lymphocytes % (A) 6 %; MCH 25.7 pg (25.0-35.0); MCHC 29.6 g/dL (31.0-37.0); MCV 86.9 fL (80.0-100.0); Mean Platelet Volume 6.4; Monocytes # (A) 0.4 k/uL (0-1.0); Monocytes % (A) 4 %; Neutrophils # (A) 7.6 k/uL (1.3-7.7); Neutrophils % (A) 85 %; Platelet Count 424 k/uL (150-450); RBC 3.96 m/uL (4.30-5.90); RDW 18.8 % (11.5-15.5); WBC 8.9 k/uL (3.8-10.6)
[2018-09-27 01:58] LABS: INR 1.1 (<1.2); Partial Thromboplastin Time 23.8 sec (22.0-30.0); Prothrombin Time 11.2 sec (9.0-12.0)
[2018-09-27 02:08] LABS: Albumin 3.1 g/dL (3.5-5.0); Calcium 9.2 mg/dL (8.4-10.2); Potassium 4.9 mmol/L (3.5-5.1); Total Bilirubin 0.6 mg/dL (0.2-1.3); Total Protein 5.4 g/dL (6.3-8.2)
--- NOTE | 2018-09-27 02:21 | XR ---
EXAM: XR Chest, 1 View CLINICAL HISTORY: ITS.REASON XR Reason: weakness TECHNIQUE: Frontal view of the chest. COMPARISON: Chest x-ray 09/04/18 IMPRESSION: Unchanged heart size. Mild vascular congestion. No consolidation or pleural effusion. Right central line is intact
--- NOTE | 2018-09-27 02:35 | XR ---
EXAM: XR Right Hip With Pelvis When Performed, 2 or 3 Views CLINICAL HISTORY: ITS.REASON XR Reason: Pain TECHNIQUE: Two or three views of the right hip, with pelvis when performed. COMPARISON: No relevant prior studies available. FINDINGS: Bones/joints: No acute fracture. No dislocation. Mild right hip osteoarthrosis. Soft tissues: Heavily calcified vessels.. IMPRESSION: No acute findings.
--- NOTE | 2018-09-27 02:36 | XR ---
EXAM: XR Left Shoulder Complete, 2 or More Views CLINICAL HISTORY: ITS.REASON XR Reason: Pain TECHNIQUE: Two or more views of the left shoulder. COMPARISON: No relevant prior studies available. FINDINGS: Bones/joints: No acute fracture. No dislocation. Screw fixation. Mild osteoarthrosis of the acromioclavicular and glenohumeral joints. Soft tissues: Decreased acromiohumeral distance likely representing underlying rotator cuff pathology. IMPRESSION: No acute findings.
[2018-09-27 03:40] LABS: Appearance,Urine Clear (Clear); Bacteria,Urine Rare /hpf; Bilirubin,Urine Negative (Negative); Blood,Urine Negative (Negative); Color,Urine Yellow; Glucose,Urine (UA) Negative (Negative); Hyaline Casts,Urine 26 /lpf (0-2); Ketones,Urine Negative (Negative); Leukocyte Esterase,Urine Negative (Negative); Mucus,Urine Rare /hpf; Nitrite,Urine Negative (Negative); Protein,Urine 1+ (Negative); RBC,Urine 3 /hpf (0-5); Specific Gravity,Urine 1.017 (1.001-1.035); Urobilinogen,Urine <2.0 mg/dL (<2.0); WBC,Urine 6 /hpf (0-5)
[2018-09-27 05:13] VITALS: BP 95/37; PULSE 92; RESP 20
[2018-09-27] MEDS ORDERED: NALOXONE 0.4 MG/ML 1 ML VIAL IV PRN (05:19)
[2018-09-27] MEDS ORDERED: ACETAMINOPHEN TAB 325 MG TAB PO PRN (05:19)
[2018-09-27] MEDS ORDERED: BISACODYL 10 MG SUPP RECTAL PRN (05:20)
[2018-09-27] MEDS ORDERED: MAGNESIUM HYDROXIDE 2,400 MG/10 ML CUP PO PRN (05:20)
[2018-09-27] MEDS ORDERED: SODIUM CHLORIDE 0.9% 1,000 ML IV SCH (05:30)
[2018-09-27] MEDS ORDERED: VALACYCLOVIR PO SCH (06:00)
--- NOTE | 2018-09-27 06:02 | ED ---
Fever HPI - General Chief Complaint: Weakness Stated Complaint: Weakness Time Seen by Provider: 09/27/18 01:13 Source: EMS Mode of arrival: EMS Limitations: no limitations - History of Present Illness Initial Comments: This patient is a 72-year-old man, resident of [facility], transferred here to have evaluation of fever and generalized weakness. On arrival, the patient is denying focal symptoms of infection. No sinus congestion or pain. No sore throat. No cough or dyspnea. No vomiting or diarrhea. Patient denies change in urination, stating that he urinates very little since starting dialysis. Patient states that he does have stasis ulcer but not having leg pain. MD Complaint: fever Onset/Timin -: hour(s) Temperature Source: oral Treatments Prior to Arrival: Acetaminophen - Related Data Home Medications Medication Instructions Recorded Confirmed Atorvastatin [Lipitor] 20 mg PO HS@209908/18/14 09/01/18 Tacrolimus [Prograf] 3 mg PO QA 08/18/14 09/01/18 Allopurinol [Zyloprim] 100 mg PO DAILY@0800 10/10/16 09/01/18 Tacrolimus [Prograf] 4 mg PO HS 11/26/16 09/01/18 Metoprolol Tartrate [Lopressor] 50 mg PO HS@209912/25/16 09/01/18 Cholecalciferol (Vitamin D3) 2,000 unit PO DAILY@0800 08/05/18 09/01/18 [Vitamin D3] Furosemide [Lasix] 80 mg PO TID 08/05/18 09/01/18 Insulin Aspart Protam & Aspart 10 unit SQ BID@0800,169908/05/18 09/01/18 [NovoLOG MIX 70-30 Flexpen] Magnesium Oxide [Mag-Ox] 400 mg PO BID@0800,169908/05/18 09/01/18 Multivitamins, Thera [Multivitamin 1 tab PO DAILY@169908/05/18 09/01/18 (formulary)] Mycophenolate Mofetil [Cellcept] 500 mg PO BID@0800,209908/05/18 09/01/18 predniSONE 2.5 mg PO DAILY@0800 08/05/18 09/01/18 Aspirin 81 mg PO DAILY@169909/01/18 09/01/18 Bisacodyl [Dulcolax] 10 mg RECTAL DAILY PRN 09/01/18 09/01/18 Collagenase [Santyl] 1 applic TOPICAL DAILY 09/01/18 09/01/18 Darbepoetin Feliberto [Aranesp] 40 mcg SQ WE 09/01/18 09/01/18 Docusate [Colace] 100 mg PO BID@0800,1700 09/01/18 09/01/18 INSULIN ASPART (NovoLOG) [NovoLOG See Protocol SQ ACHS 09/01/18 09/01/18 (formulary)] Magnesium Hydroxide [Milk of 2,400 mg PO DAILY PRN 09/01/18 09/01/18 Magnesia] Metoprolol Tartrate [Lopressor] 100 mg PO DAILY@0800 09/01/18 09/01/18 Mineral Oil [Fleet Mineral Oil] 133 ml RECTAL DAILY PRN 09/01/18 09/01/18 Nepro 1 can PO BID-W/MEALS 09/01/18 09/01/18 Pantoprazole [Protonix] 40 mg PO DAILY@0800 09/01/18 09/01/18 Valacyclovir 400mg 400 mg PO TID@0600,1400,2100 09/01/18 09/01/18 Previous Rx's Medication Instructions Recorded hydrALAZINE HCL [Apresoline] 25 mg PO TID #90 tab 11/29/16 Amoxicillin/Potassium Clav 1 tab PO DAILY 14 Days #20 tab 09/05/18 [Augmentin 500-125 Tablet] Glycerin Adult Suppository 1 each RECTAL DAILY supp 09/05/18 HYDROcodone/APAP 10-325MG [[place] 1 tab PO TID #9 tab 09/05/18 10-325] Ipratropium-Albuterol Nebulize 3 ml INHALATION RT-QID ampul.neb 09/05/18 [Duoneb 0.5 mg-3 mg/3 ml Soln] Lactulose [Cephulac] 15 gm PO TID ml 09/05/18 Polyethylene Glycol 3350 [Miralax] 17 gm PO HS powd.pack 09/05/18 Sennosides-Docusate Sodium 1 each PO BID tab 09/05/18 [Senokot-S] Allergies Allergy/AdvReac Type Severity Reaction Status Date / Time heaton Allergy Unknown Verified 09/01/18 13:33 codeine Allergy Rash/Hives Verified 09/01/18 13:33 erythromycin base Allergy Swelling Verified 09/01/18 13:33 Review of Systems ROS Statement: Those systems with pertinent positive or pertinent negative responses have been documented in the HPI. ROS Other: All systems not noted in ROS Statement are negative. Constitutional: Reports: fever, weakness. Denies: chills Respiratory: Denies: cough, dyspnea Cardiovascular: Denies: chest pain, palpitations, edema Gastrointestinal: Denies: abdominal pain, vomiting, diarrhea Genitourinary: Denies: dysuria, frequency, hematuria Musculoskeletal: Denies: back pain, joint swelling, arthralgia Skin: Denies: rash Neurological: Denies: headache, weakness, numbness Past Medical History Past Medical History: Asthma, Cancer, Heart Failure, COPD, Diabetes Mellitus, GERD/Reflux, Hyperlipidemia, Hypertension, Osteoarthritis (OA), Pneumonia, Renal Disease, Seizure Disorder Additional Past Medical History / Comment(s): 06/13/15 Pt presented to [facility] ER with SOB. He is admitted with clinical impression of CHF exacerbation, dyspnea and hyperglycemia, renal failure. 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 dialysis m/w/f History of Any Multi-Drug Resistant Organisms: MRSA Date of last positivie culture/infection: 12/26/16 MDRO Source:: NASAL Past Surgical History: Heart Catheterization, Heart Catheterization With Stent Additional Past Surgical History / Comment(s): liver transplant 2006 d/t non alcoholic steatohepatits d/t fatty liver, colonoscopy, insertion lt arm fistula(in past had hemodialysis)-kidney implant 2011, lt shoulder sx has pin in place, rt wrist sx with pins, cataract removal and lens implants bilaterally 2013. Past Anesthesia/Blood Transfusion Reactions: No Reported Reaction Date of Last Stent Placement:: 2007 Past Psychological History: No Psychological Hx Reported Smoking Status: Former smoker Past Alcohol Use History: Unable to Obtain Past Drug Use History: Unable to Obtain - Past Family History Father Family Medical History: No Reported History, Cancer, Hypertension Additional Family Medical History / Comment(s): Father in his 80's. Mother Family Medical History: Diabetes Mellitus, Hypertension Additional Family Medical History / Comment(s): Mother in her 80's. General Exam Limitations: no limitations General appearance: alert, in no apparent distress Head exam: Present: atraumatic, normocephalic Eye exam: Present: normal appearance. Absent: scleral icterus, conjunctival injection ENT exam: Present: normal oropharynx Neck exam: Present: normal inspection, full ROM. Absent: meningismus Respiratory exam: Present: normal lung sounds bilaterally. Absent: respiratory distress, wheezes, rales, rhonchi, stridor Cardiovascular Exam: Present: regular rate, normal rhythm, normal heart sounds. Absent: systolic murmur, diastolic murmur, rubs, gallop GI/Abdominal exam: Present: soft. Absent: distended, tenderness, guarding, rebound, rigid, mass, pulsatile mass, hernia Extremities exam: Present: normal inspection, normal capillary refill. Absent: pedal edema, calf tenderness Back exam: Present: normal inspection. Absent: CVA tenderness (R), CVA tenderness (L) Neurological exam: Present: alert Skin exam: Present: warm, dry, intact, normal color. Absent: rash Course Vital Signs 09/27/18 09/27/18 01:05 05:12 Temperature 99.9 F H Pulse Rate 103 H 92 Respiratory 18 20 Rate Blood Pressure 138/34 95/37 O2 Sat by Pulse 97 97 Oximetry Medical Decision Making - Medical Decision Making Patient is 72-year-old man sent here from [facility] to have evaluation for fever. The patient's workup has returned and we are not finding a definite source. The chest x-ray does not reveal pneumonia. Urine has only a few white cells, none of to cause the patient's 102 temperature. The patient's dialysis catheter does not appear infected. I did discuss patient's case with Dr. Mahmood, and we were going to keep the patient for admission. After period of time however the patient stated he was continuing to feel well and wants to go home, to the custodial. Patient understands there is some risk associated this. - Lab Data Result diagrams: 09/27/18 01:30 09/27/18 01:30 Lab Results 09/27/18 09/27/18 09/27/18 Range/Units 01:30 01:30 01:30 WBC 8.9 (3.8-10.6) k/uL RBC 3.96 L (4.30-5.90) m/uL Hgb 10.2 L (13.0-17.5) gm/dL Hct 34.4 L (39.0-53.0) % MCV 86.9 (80.0-100.0) fL MCH 25.7 (25.0-35.0) pg MCHC 29.6 L (31.0-37.0) g/dL RDW 18.8 H (11.5-15.5) % Plt Count 424 (150-450) k/uL Neutrophils % 85 % Lymphocytes % 6 % Monocytes % 4 % Eosinophils % 3 % Basophils % 0 % Neutrophils # 7.6 (1.3-7.7) k/uL Lymphocytes # 0.6 L (1.0-4.8) k/uL Monocytes # 0.4 (0-1.0) k/uL Eosinophils # 0.2 (0-0.7) k/uL Basophils # 0.0 (0-0.2) k/uL Hypochromasia Marked Anisocytosis Slight PT (9.0-12.0) sec INR (<1.2) APTT (22.0-30.0) sec Sodium 138 (137-145) mmol/L Potassium 4.9 (3.5-5.1) mmol/L Chloride 98 (98-107) mmol/L Carbon Dioxide 28 (22-30) mmol/L Anion Gap 12 mmol/L BUN 27 H (9-20) mg/dL Creatinine 2.09 H (0.66-1.25) mg/dL Est GFR (CKD-EPI)AfAm 36 (>60 ml/min/1.73 sqM) Est GFR (CKD-EPI)NonAf 31 (>60 ml/min/1.73 sqM) Glucose 101 H (74-99) mg/dL Plasma Lactic Acid Nelson 1.7 (0.7-2.0) mmol/L Calcium 9.2 (8.4-10.2) mg/dL Magnesium 2.0 (1.6-2.3) mg/dL Total Bilirubin 0.6 (0.2-1.3) mg/dL AST 18 (17-59) U/L ALT 14 L (21-72) U/L Alkaline Phosphatase 146 H (38-126) U/L Troponin I (0.000-0.034) ng/mL Total Protein 5.4 L (6.3-8.2) g/dL Albumin 3.1 L (3.5-5.0) g/dL Urine Color Urine Appearance (Clear) Urine pH (5.0-8.0) Ur Specific [place] (1.001-1.035) Urine Protein (Negative) Urine Glucose (UA) (Negative) Urine Ketones (Negative) Urine Blood (Negative) Urine Nitrite (Negative) Urine Bilirubin (Negative) Urine Urobilinogen (<2.0) mg/dL Ur Leukocyte Esterase (Negative) Urine RBC (0-5) /hpf Urine WBC (0-5) /hpf Urine Bacteria (None) /hpf Hyaline Casts (0-2) /lpf Urine Mucus (None) /hpf 09/27/18 09/27/18 09/27/18 Range/Units 01:30 01:30 03:25 WBC (3.8-10.6) k/uL RBC (4.30-5.90) m/uL Hgb (13.0-17.5) gm/dL Hct (39.0-53.0) % MCV (80.0-100.0) fL MCH (25.0-35.0) pg MCHC (31.0-37.0) g/dL RDW (11.5-15.5) % Plt Count (150-450) k/uL Neutrophils % % Lymphocytes % % Monocytes % % Eosinophils % % Basophils % % Neutrophils # (1.3-7.7) k/uL Lymphocytes # (1.0-4.8) k/uL Monocytes # (0-1.0) k/uL Eosinophils # (0-0.7) k/uL Basophils # (0-0.2) k/uL Hypochromasia Anisocytosis PT 11.2 (9.0-12.0) sec INR 1.1 (<1.2) APTT 23.8 (22.0-30.0) sec Sodium (137-145) mmol/L Potassium (3.5-5.1) mmol/L Chloride (98-107) mmol/L Carbon Dioxide (22-30) mmol/L Anion Gap mmol/L BUN (9-20) mg/dL Creatinine (0.66-1.25) mg/dL Est GFR (CKD-EPI)AfAm (>60 ml/min/1.73 sqM) Est GFR (CKD-EPI)NonAf (>60 ml/min/1.73 sqM) Glucose (74-99) mg/dL Plasma Lactic Acid Nelson (0.7-2.0) mmol/L Calcium (8.4-10.2) mg/dL Magnesium (1.6-2.3) mg/dL Total Bilirubin (0.2-1.3) mg/dL AST (17-59) U/L ALT (21-72) U/L Alkaline Phosphatase (38-126) U/L Troponin I 0.060 H* (0.000-0.034) ng/mL Total Protein (6.3-8.2) g/dL Albumin (3.5-5.0) g/dL Urine Color Yellow Urine Appearance Clear (Clear) Urine pH 5.0 (5.0-8.0) Ur Specific [place] 1.017 (1.001-1.035) Urine Protein 1+ H (Negative) Urine Glucose (UA) Negative (Negative) Urine Ketones Negative (Negative) Urine Blood Negative (Negative) Urine Nitrite Negative (Negative) Urine Bilirubin Negative (Negative) Urine Urobilinogen <2.0 (<2.0) mg/dL Ur Leukocyte Esterase Negative (Negative) Urine RBC 3 (0-5) /hpf Urine WBC 6 H (0-5) /hpf Urine Bacteria Rare H (None) /hpf Hyaline Casts 26 H (0-2) /lpf Urine Mucus Rare H (None) /hpf Disposition Clinical Impression: Fever Disposition: HOME SELF-CARE Condition: Fair Is patient prescribed a controlled substance at d/c from ED?: No
[2018-09-27] MEDS ORDERED: NON-FORMULARY DRUG (Nepro 1 CAN) PO SCH (07:30)
[2018-09-27] MEDS ORDERED: CHOLECALCIFEROL 1,000 UNIT TAB PO SCH (08:00)
[2018-09-27] MEDS ORDERED: PANTOPRAZOLE 40 MG TABLET PO SCH (08:00)
[2018-09-27] MEDS ORDERED: METOPROLOL TARTRATE 50 MG TAB PO SCH ×2 (08:00→21:00)
[2018-09-27] MEDS ORDERED: ALLOPURINOL 100 MG TAB PO SCH (08:00)
[2018-09-27] MEDS ORDERED: MYCOPHENOLATE MOFETIL 250 MG CAP PO SCH (08:00)
[2018-09-27] MEDS ORDERED: INSULN ASP PRT/INSULIN ASPART 100 UNIT/ML 10 ML VIAL SQ SCH (08:00)
[2018-09-27] MEDS ORDERED: predniSONE 2.5 MG TAB PO SCH (08:00)
[2018-09-27] MEDS ORDERED: IPRATROPIUM-ALBUTEROL 3 ML NEB INHALATION SCH (08:00)
[2018-09-27] MEDS ORDERED: MAGNESIUM OXIDE 400 MG TAB PO SCH (08:00)
[2018-09-27] MEDS ORDERED: hydrALAZINE HCL 25 MG TAB PO SCH (09:00)
[2018-09-27] MEDS ORDERED: AMOXIC-POT CLAV 500-125 MG 1 EACH TAB PO SCH (09:00)
[2018-09-27] MEDS ORDERED: LACTULOSE 20 GM/30 ML CUP PO SCH (09:00)
[2018-09-27] MEDS ORDERED: FUROSEMIDE 80 MG TAB PO SCH (09:00)
[2018-09-27] MEDS ORDERED: HYDROcodone/APAP 10-325MG 1 EACH TAB PO SCH (09:00)
[2018-09-27] MEDS ORDERED: SENNOSIDES-DOCUSATE SODIUM 1 EACH TAB PO SCH (09:00)
[2018-09-27] MEDS ORDERED: TACROLIMUS 1 MG CAP PO SCH ×2 (09:00→21:00)
[2018-09-27] MEDS ORDERED: FAMOTIDINE 20 MG TAB PO SCH (09:00)
[2018-09-27] MEDS ORDERED: COLLAGENASE 250 UNIT/GM OINTMENT 30 GM TUBE TOPICAL SCH (09:00)
[2018-09-27] MEDS ORDERED: ASPIRIN 81 MG PO SCH (17:00)
[2018-09-27] MEDS ORDERED: MULTIVITAMINS, THERA 1 EACH TAB PO SCH (17:00)
[2018-09-27] MEDS ORDERED: POLYETHYLENE GLYCOL 3350 17 GM POWD.PACK PO SCH (21:00)
[2018-09-27] MEDS ORDERED: ATORVASTATIN 20 MG TAB PO SCH (21:00)
[2018-10-01] MEDS ORDERED: DARBEPOETIN ALFA 40 MCG/0.4 ML SYRINGE SQ SCH (09:00)
== END 2018-09-27 06:38 | disposition home or self-care (01) ==
LOC: EC 01:02 → UNDOADMOB 05:20 → 4MS4W 05:20 → EC 06:38
DX: R50.9 Fever, unspecified (principal); R53.1 Weakness; R39.198 Other difficulties with micturition; J44.9 Chronic obstructive pulmonary disease, unspecified; I13.2 Hypertensive heart and chronic kidney disease with heart failure and with stage 5 chronic kidney disease, or end stage renal disease; E11.22 Type 2 diabetes mellitus with diabetic chronic kidney disease; N18.6 End stage renal disease; I50.20 Unspecified systolic (congestive) heart failure; K21.9 Gastro-esophageal reflux disease without esophagitis; E78.5 Hyperlipidemia, unspecified; Z99.2 Dependence on renal dialysis; Z96.9 Presence of functional implant, unspecified; Z94.4 Liver transplant status; Z85.72 Personal history of non-Hodgkin lymphomas; Z86.14 Personal history of Methicillin resistant Staphylococcus aureus infection; Z95.818 Presence of other cardiac implants and grafts; Z95.5 Presence of coronary angioplasty implant and graft; Z87.891 Personal history of nicotine dependence; Z79.4 Long term (current) use of insulin; Z79.52 Long term (current) use of systemic steroids; Z79.82 Long term (current) use of aspirin; Z79.899 Other long term (current) drug therapy; Z91.018 Allergy to other foods; Z88.5 Allergy status to narcotic agent; Z88.1 Allergy status to other antibiotic agents
CPT/HCPCS: 36415; 71045; 73502; 80053; 81001; 83605; 83735; 84484; 85025; 85610; 85730; 93005; 99285

== ENCOUNTER 2018-09-30 13:04 | Inpatient (IN) | payer BC, MEDICARE ==
[2018-09-30] MEDS ORDERED: MORPHINE SULFATE 2 MG/ML SYRINGE IVP ONE (13:35)
[2018-09-30 13:40] LABS: Anisocytosis Slight; Basophils % (A) 0 %; Eosinophils # (A) 0.1 k/uL (0-0.7); Eosinophils % (A) 1 %; HGB 9.3 gm/dL (13.0-17.5); Hypochromasia Marked; Lymphocytes # (A) 0.6 k/uL (1.0-4.8); Lymphocytes % (A) 5 %; MCH 25.5 pg (25.0-35.0); MCHC 29.9 g/dL (31.0-37.0); MCV 85.3 fL (80.0-100.0); Mean Platelet Volume 7.5; Monocytes # (A) 0.5 k/uL (0-1.0); Monocytes % (A) 4 %; Neutrophils # (A) 10.4 k/uL (1.3-7.7); Neutrophils % (A) 89 %; Platelet Count 411 k/uL (150-450); Poikilocytosis Slight; RBC 3.63 m/uL (4.30-5.90); RDW 18.1 % (11.5-15.5); WBC 11.8 k/uL (3.8-10.6)
[2018-09-30] MEDS ORDERED: DEXTROSE 50%-WATER 50 ML SYRINGE IVP STA ×2 (13:40→15:22)
[2018-09-30 13:45] LABS: Albumin 2.8 g/dL (3.5-5.0); Calcium 8.7 mg/dL (8.4-10.2); Potassium 4.7 mmol/L (3.5-5.1); Total Bilirubin 0.7 mg/dL (0.2-1.3)
[2018-09-30 13:49] LABS: Partial Thromboplastin Time 27.2 sec (22.0-30.0); Prothrombin Time 11.1 sec (9.0-12.0)
[2018-09-30] MEDS: SODIUM CHLORIDE 0.9% 1,000 ML IV SCH (13:51)
[2018-09-30] MEDS ORDERED: SODIUM CHLORIDE 0.9% 1,000 ML IV ONE (13:55)
[2018-09-30] MEDS: DEXTROSE 50%-WATER 50 ML SYRINGE IVP STA ×2 (13:59→18:30)
[2018-09-30] MEDS: SODIUM CHLORIDE 0.9% 500 ML 500 ML IV SCH (14:00)
--- NOTE | 2018-09-30 14:16 | ED ---
Fever HPI <Kevin Temple - Last Filed: 09/30/18 15:11> - General Source: patient, RN notes reviewed, old records reviewed Mode of arrival: EMS <Sarah Tomas - Last Filed: 09/30/18 15:33> - General Chief Complaint: Fever Stated Complaint: Fever/wounds Time Seen by Provider: 09/30/18 13:09 - History of Present Illness Initial Comments: Patient is a 72-year-old male with history of dialysis and significant bilateral lateral lower leg wounds. He is receiving wound care and have his recently dressed. He has extensive sialitis. He was sent in from [facility] and to care facility for increasing agitation and fevers of 102. He was given Tylenol prior to arrival. Patient is here with his . Patient was seen in the emergency department a few days ago and wanted to be discharged home at that time. (Sarah Jones) - Related Data Home Medications Medication Instructions Recorded Confirmed Atorvastatin [Lipitor] 20 mg PO HS@2100 08/18/14 09/30/18 Tacrolimus [Prograf] 3 mg PO QAM 08/18/14 09/30/18 Allopurinol [Zyloprim] 100 mg PO DAILY@0800 10/10/16 09/30/18 Tacrolimus [Prograf] 4 mg PO HS 11/26/16 09/30/18 Metoprolol Tartrate [Lopressor] 50 mg PO HS@2100 12/25/16 09/30/18 Cholecalciferol (Vitamin D3) 2,000 unit PO DAILY@0800 08/05/18 09/30/18 [Vitamin D3] Furosemide [Lasix] 80 mg PO BID 08/05/18 09/30/18 Magnesium Oxide [Mag-Ox] 400 mg PO BID@0800,1700 08/05/18 09/30/18 Multivitamins, Thera [Multivitamin 1 tab PO DAILY@1700 08/05/18 09/30/18 (formulary)] Mycophenolate Mofetil [Cellcept] 500 mg PO BID@0800,2100 08/05/18 09/30/18 predniSONE 2.5 mg PO DAILY@0800 08/05/18 09/30/18 Aspirin 81 mg PO DAILY@1700 09/01/18 09/30/18 Bisacodyl [Dulcolax] 10 mg RECTAL DAILY PRN 02/25/19 03/26/19 Docusate [Colace] 100 mg PO BID@0800,1700 09/01/18 09/30/18 INSULIN ASPART (NovoLOG) [NovoLOG See Protocol SQ ACHS 09/01/18 09/30/18 (formulary)] Metoprolol Tartrate [Lopressor] 100 mg PO DAILY@0800 09/01/18 09/30/18 Nepro 1 can PO BID-W/MEALS 09/01/18 09/30/18 Pantoprazole [Protonix] 40 mg PO DAILY@0800 09/01/18 09/30/18 Acetaminophen [Tylenol] 650 mg PO Q4H PRN 09/30/18 09/30/18 HYDROcodone/APAP 10-325MG [[place] 1 tab PO QID 09/30/18 09/30/18 10-325] Insulin Glargine [Lantus] 10 unit SQ HS@2100 09/30/18 09/30/18 Previous Rx's Medication Instructions Recorded hydrALAZINE HCL [Apresoline] 25 mg PO TID #90 tab 11/29/16 Ipratropium-Albuterol Nebulize 3 ml INHALATION RT-QID ampul.neb 09/05/18 [Duoneb 0.5 mg-3 mg/3 ml Soln] Allergies Allergy/AdvReac Type Severity Reaction Status Date / Time heaton Allergy Unknown Verified 09/30/18 13:46 codeine Allergy Rash/Hives Verified 09/30/18 13:46 erythromycin base Allergy Swelling Verified 09/30/18 13:46 Review of Systems ROS Other: All systems not noted in ROS Statement are negative. <Kevin Temple - Last Filed: 09/30/18 15:11> ROS Other: All systems not noted in ROS Statement are negative. <Sarah Tomas - Last Filed: 09/30/18 15:33> ROS Statement: Those systems with pertinent positive or pertinent negative responses have been documented in the HPI. Past Medical History Past Medical History: Asthma, Cancer, Heart Failure, COPD, Diabetes Mellitus, GERD/Reflux, Hyperlipidemia, Hypertension, Osteoarthritis (OA), Pneumonia, Renal Disease, Seizure Disorder Additional Past Medical History / Comment(s): 06/13/15 Pt presented to [facility] ER with SOB. He is admitted with clinical impression of CHF exacerbation, dyspnea and hyperglycemia, renal failure. 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 dialysis m/w/f History of Any Multi-Drug Resistant Organisms: MRSA Date of last positivie culture/infection: 12/26/16 MDRO Source:: NASAL Past Surgical History: Heart Catheterization, Heart Catheterization With Stent Additional Past Surgical History / Comment(s): liver transplant 2005 d/t non alcoholic steatohepatits d/t fatty liver, colonoscopy, insertion lt arm fistul a(in past had hemodialysis)-kidney implant 2011, lt shoulder sx has pin in place, rt wrist sx with pins, cataract removal and lens implants bilaterally 2013. Past Anesthesia/Blood Transfusion Reactions: No Reported Reaction Date of Last Stent Placement:: 2007 Past Psychological History: No Psychological Hx Reported Smoking Status: Former smoker Past Alcohol Use History: Unable to Obtain Past Drug Use History: Unable to Obtain - Past Family History Father Family Medical History: No Reported History, Cancer, Hypertension Additional Family Medical History / Comment(s): Father in his 80's. Mother Family Medical History: Diabetes Mellitus, Hypertension Additional Family Medical History / Comment(s): Mother in her 80's. <Sarah Tomas - Last Filed: 09/30/18 15:33> General Exam General appearance: alert Head exam: Present: atraumatic, normocephalic, normal inspection Eye exam: Present: normal appearance, PERRL, EOMI. Absent: scleral icterus, conjunctival injection, periorbital swelling ENT exam: Present: normal exam, mucous membranes moist Neck exam: Present: normal inspection. Absent: tenderness, meningismus, lymphadenopathy Respiratory exam: Present: decreased breath sounds. Absent: normal lung sounds bilaterally, respiratory distress, wheezes, rales, rhonchi, stridor Cardiovascular Exam: Present: regular rate, normal rhythm, normal heart sounds. Absent: systolic murmur, diastolic murmur, rubs, gallop, clicks GI/Abdominal exam: Present: soft, normal bowel sounds. Absent: distended, tenderness, guarding, rebound, rigid Extremities exam: Present: normal inspection, full ROM, normal capillary refill, other (Patient has dressings over bilateral lower extremities. Wounds are weeping. He was recently changed today. Family does not want me to remove them at this time.). Absent: tenderness, pedal edema, joint swelling, calf tenderness Back exam: Present: normal inspection Neurological exam: Present: alert, oriented X3, CN II-XII intact Psychiatric exam: Present: normal affect, normal mood Skin exam: Present: warm, dry, intact, normal color. Absent: rash <Sarah Tomas - Last Filed: 09/30/18 15:33> - General Exam Comments Initial Comments: Agitated 72-year-old male. Multiple wraps bilateral lower extremities. (Sarah Tomas) Course Vital Signs 09/30/18 09/30/18 09/30/18 13:06 14:00 14:03 Temperature 98.1 F Pulse Rate 86 82 83 Respiratory 18 20 22 Rate Blood Pressure 99/50 103/36 113/32 O2 Sat by Pulse 99 97 98 Oximetry Medical Decision Making - Lab Data Result diagrams: 09/30/18 13:24 09/30/18 13:24 <Kevin Temple - Last Filed: 09/30/18 15:11> - Lab Data Result diagrams: 09/30/18 13:24 09/30/18 13:24 - Radiology Data Radiology results: report reviewed <Sarah Tomas - Last Filed: 09/30/18 15:33> - Medical Decision Making 72-year-old male presented from the long term with fever, worsening confusion. Patient initially seen by the physician medical receptionist assistant. Did reevaluate the patient, resting comfortably stable vitals. Multiple cutaneous lesions. Chest x-ray showing concern for worsening pneumonia. Patient is started on cefepime and vancomycin covering healthcare associated pneumonia as well as possibility of skin soft tissue infection. Patient will be admitted. Admitting physician is able to evaluate the patient in the emergency department. (Kevin Temple) 72-year-old male complaining of pain over his lower extremities and over entire body presents for fevers and agitation. Patient was seen and given a liter bolus. Blood pressure initially was low at 100/30 on arrival. He continued playing a significant pain over his lower sinus bradycardia as well as given a liter bolus and 2 mg of morphine. Lab work was reviewed. He had no fever here but apparently serous 102 at the nursing facility. Patient was initiated on Rocephin. Later switched to cefepime and vancomycin for possibility of healthcare associated pneumonia and soft tissue skin infection. His chest x-ray did show continued infiltrate that seems to be worsening. Patient also was found to be hypoglycemic. He was given D50. On reevaluation the blood sugar was 100. After another 30 minutes because sugar went down to 40. Another amp of D50 was ordered and Patient started on D5. Patient's case discussed with Dr. Temple whom discussed the case with SHREYA Pinon for Dr. Mahmood. ([facility]) - Lab Data Lab Results 09/30/18 09/30/18 09/30/18 Range/Units 13:24 13:24 13:24 WBC 11.8 H (3.8-10.6) k/uL RBC 3.63 L (4.30-5.90) m/uL Hgb 9.3 L (13.0-17.5) gm/dL Hct 31.0 L (39.0-53.0) % MCV 85.3 (80.0-100.0) fL MCH 25.5 (25.0-35.0) pg MCHC 29.9 L (31.0-37.0) g/dL RDW 18.1 H (11.5-15.5) % Plt Count 411 (150-450) k/uL Neutrophils % 89 % Lymphocytes % 5 % Monocytes % 4 % Eosinophils % 1 % Basophils % 0 % Neutrophils # 10.4 H (1.3-7.7) k/uL Lymphocytes # 0.6 L (1.0-4.8) k/uL Monocytes # 0.5 (0-1.0) k/uL Eosinophils # 0.1 (0-0.7) k/uL Basophils # 0.0 (0-0.2) k/uL Hypochromasia Marked Poikilocytosis Slight Anisocytosis Slight PT (9.0-12.0) sec INR (<1.2) APTT (22.0-30.0) sec Sodium 134 L (137-145) mmol/L Potassium 4.7 (3.5-5.1) mmol/L Chloride 95 L (98-107) mmol/L Carbon Dioxide 25 (22-30) mmol/L Anion Gap 14 mmol/L BUN 38 H (9-20) mg/dL Creatinine 2.70 H (0.66-1.25) mg/dL Est GFR (CKD-EPI)AfAm 26 (>60 ml/min/1.73 sqM) Est GFR (CKD-EPI)NonAf 23 (>60 ml/min/1.73 sqM) Glucose 38 L* (74-99) mg/dL POC Glucose (mg/dL) (75-99) mg/dL POC Glu [employer]cker ID Plasma Lactic Acid Nelson 1.4 (0.7-2.0) mmol/L Calcium 8.7 (8.4-10.2) mg/dL Total Bilirubin 0.7 (0.2-1.3) mg/dL AST 13 L (17-59) U/L ALT 15 L (21-72) U/L Alkaline Phosphatase 150 H (38-126) U/L Troponin I (0.000-0.034) ng/mL NT-Pro-B Natriuret Pep pg/mL Total Protein 5.0 L (6.3-8.2) g/dL Albumin 2.8 L (3.5-5.0) g/dL 09/30/18 09/30/18 09/30/18 Range/Units 13:24 13:24 13:24 WBC (3.8-10.6) k/uL RBC (4.30-5.90) m/uL Hgb (13.0-17.5) gm/dL Hct (39.0-53.0) % MCV (80.0-100.0) fL MCH (25.0-35.0) pg MCHC (31.0-37.0) g/dL RDW (11.5-15.5) % Plt Count (150-450) k/uL Neutrophils % % Lymphocytes % % Monocytes % % Eosinophils % % Basophils % % Neutrophils # (1.3-7.7) k/uL Lymphocytes # (1.0-4.8) k/uL Monocytes # (0-1.0) k/uL Eosinophils # (0-0.7) k/uL Basophils # (0-0.2) k/uL Hypochromasia Poikilocytosis Anisocytosis PT 11.1 (9.0-12.0) sec INR 1.0 (<1.2) APTT 27.2 (22.0-30.0) sec Sodium (137-145) mmol/L Potassium (3.5-5.1) mmol/L Chloride (98-107) mmol/L Carbon Dioxide (22-30) mmol/L Anion Gap mmol/L BUN (9-20) mg/dL Creatinine (0.66-1.25) mg/dL Est GFR (CKD-EPI)AfAm (>60 ml/min/1.73 sqM) Est GFR (CKD-EPI)NonAf (>60 ml/min/1.73 sqM) Glucose (74-99) mg/dL POC Glucose (mg/dL) (75-99) mg/dL POC Glu Casting [employer]cker ID Plasma Lactic Acid Nelson (0.7-2.0) mmol/L Calcium (8.4-10.2) mg/dL Total Bilirubin (0.2-1.3) mg/dL AST (17-59) U/L ALT (21-72) U/L Alkaline Phosphatase (38-126) U/L Troponin I 0.082 H* (0.000-0.034) ng/mL NT-Pro-B Natriuret Pep 01099 pg/mL Total Protein (6.3-8.2) g/dL Albumin (3.5-5.0) g/dL 09/30/18 09/30/18 Range/Units 14:16 15:21 WBC (3.8-10.6) k/uL RBC (4.30-5.90) m/uL Hgb (13.0-17.5) gm/dL Hct (39.0-53.0) % MCV (80.0-100.0) fL MCH (25.0-35.0) pg MCHC (31.0-37.0) g/dL RDW (11.5-15.5) % Plt Count (150-450) k/uL Neutrophils % % Lymphocytes % % Monocytes % % Eosinophils % % Basophils % % Neutrophils # (1.3-7.7) k/uL Lymphocytes # (1.0-4.8) k/uL Monocytes # (0-1.0) k/uL Eosinophils # (0-0.7) k/uL Basophils # (0-0.2) k/uL Hypochromasia Poikilocytosis Anisocytosis PT (9.0-12.0) sec INR (<1.2) APTT (22.0-30.0) sec Sodium (137-145) mmol/L Potassium (3.5-5.1) mmol/L Chloride (98-107) mmol/L Carbon Dioxide (22-30) mmol/L Anion Gap mmol/L BUN (9-20) mg/dL Creatinine (0.66-1.25) mg/dL Est GFR (CKD-EPI)AfAm (>60 ml/min/1.73 sqM) Est GFR (CKD-EPI)NonAf (>60 ml/min/1.73 sqM) Glucose (74-99) mg/dL POC Glucose (mg/dL) 108 H 42 L (75-99) mg/dL POC Glu Casting Trucker ID EsvintEstella Ashley Plasma Lactic Acid Nelson (0.7-2.0) mmol/L Calcium (8.4-10.2) mg/dL Total Bilirubin (0.2-1.3) mg/dL AST (17-59) U/L ALT (21-72) U/L Alkaline Phosphatase (38-126) U/L Troponin I (0.000-0.034) ng/mL NT-Pro-B Natriuret Pep pg/mL Total Protein (6.3-8.2) g/dL Albumin (3.5-5.0) g/dL 09/30/18 14:16 EKG shows wide QRS rhythm with left axis deviation. Left bundle branch. Abnormal EKG noted. Ventricular rate of 86 bpm. [place] interval undetected. QRS duration 122 ms. QT QTc is 390/466 most seconds. (Sarah Tomas) - Radiology Data Overlying being to limits evaluation other suggestion for increased density in the right infrahilar region and right suprahilar region which may reflect developing infiltrate. Correlate clinically. (Sarah Tomas) Disposition <Kevin Temple - Last Filed: 09/30/18 15:11> Is patient prescribed a controlled substance at d/c from ED?: No Time of Disposition: 15:32 <Sarah Tomas - Last Filed: 09/30/18 15:33> Clinical Impression: HCAP (healthcare-associated pneumonia), High risk for readmission, CAD (coronary artery disease), NSTEMI (non-ST elevated myocardial infarction), Altered mental status, Liver transplant recipient, Renal failure, Wound of lower extremity Disposition: ADMITTED IP TO THIS HOSP Condition: Stable Referrals: Jayla Mahmood MD [Primary Care Provider] - 1-2 days
[2018-09-30 14:18] LABS: Glucose,Whole Blood 108 mg/dL (75-99)
--- NOTE | 2018-09-30 14:52 | XR ---
EXAMINATION TYPE: XR chest 2V DATE OF EXAM: 09/30/2018 COMPARISON: 09/27/2018 HISTORY: Shortness of breath TECHNIQUE: Frontal and lateral views of the chest are obtained. FINDINGS: Scattered senescent parenchymal changes noted. Hyperinflation compatible with COPD. Central venous li ne is unchanged in position. Overlying tubing limits evaluation although there is a suggestion of increased density right infrahil ar region and right suprahilar region which may reflect developing infiltrate. Correlate clinically. Heart size is stable. Mediastinal structures are stable and grossly unremarkable. No evidence for hilar prominence. Degenerative changes dorsal spine. IMPRESSION: 1. Overlying tubing limits evaluation although there is a suggestion of increased density right infra hilar region and right suprahilar region which may reflect developing infiltrate. Correlate clinicall y.
[2018-09-30] MEDS ORDERED: VANCOMYCIN IV PER PHARMACY 1 EACH MISC MISCELLANE PRN (15:11)
[2018-09-30] MEDS ORDERED: CEFEPIME 2 GM in SODIUM CHLORIDE 0.9% 100 ML IVPB STA (15:11)
[2018-09-30] MEDS ORDERED: DEXTROSE 5%-0.45% NACL 1,000 ML IV ONE (15:22)
[2018-09-30 15:23] LABS: Glucose,Whole Blood 42 mg/dL (75-99)
[2018-09-30] MEDS ORDERED: PNEUMONIA PROTOCOL UTILIZED 1 EACH MISC PO PRN (15:36)
[2018-09-30] MEDS ORDERED: BISACODYL 10 MG SUPP RECTAL PRN (15:49)
[2018-09-30] MEDS ORDERED: ACETAMINOPHEN TAB 325 MG TAB PO PRN (15:49)
[2018-09-30] MEDS ORDERED: VANCOMYCIN 1,250 MG in SODIUM CHLORIDE 0.9% 250 ML IVPB ONE (16:00)
[2018-09-30 16:05] LABS: Glucose,Whole Blood 103 mg/dL (75-99)
--- NOTE | 2018-09-30 16:22 | P.HPIM ---
History of Present Illness H&P Date: 09/30/18 Chief Complaint: Fever and agitation This is a 72-year-old male with a known past medical history of congestive heart failure, end-stage renal disease with hemodialysis Saturday, coronary artery disease with cardiac stents, chronic paroxysmal atrial fibrillation, diabetes mellitus type 2, kidney transplant in 2011 and liver transplant in 2005, non-Hodgkin's lymphoma, hyperlipidemia and hypertension. Patient was transferred from [facility] due to fever of 102 and agitation. Patient had been in the ER 3 days ago with a fever dairy could not find a source of infection and patient wanted to be discharged back home. Patient was also hospitalized earlier in September treated for pneumonia and discharged with Augmentin. Patient does have lower extremity cellulitis of both legs legs are swollen painful there are blisters that have broken open on both tibia areas. Patient does have a history of MRSA in the nose. He has been placed on IV vancomycin and cefepime in the ER. Infectious disease has been consulted. Venous Dopplers have been ordered to rule out DVT. Chest x-ray showing evidence of increased density in the right infrahilar region and right suprahilar region which may reflect developing infiltrate. White count elevated 11.8 lactic acid normal at 1.4. Patient also hypoglycemic per family members at bedside reporting that he is not eating well. Blood sugar of 38. Received D5 in the ER. Blood sugar did improve up to 108. Patient did have mildly elevated troponin and repeat troponin ordered EKG showing a wide QRS and left bundle branch block. Cardiology has been consulted. Patient denies chest pain or shortness of breath, nausea vomiting, bowel movement changes. X-ray little urine is on hemodialysis. Patient is confused. Review of Systems Please refer to HPI otherwise unremarkable Past Medical History Past Medical History: Asthma, Cancer, Heart Failure, COPD, Diabetes Mellitus, GERD/Reflux, Hyperlipidemia, Hypertension, Osteoarthritis (OA), Pneumonia, Renal Disease, Seizure Disorder Additional Past Medical History / Comment(s): 06/13/15 Pt presented to [facility] ER with SOB. He is admitted with clinical impression of CHF exacerbation, dyspnea and hyperglycemia, renal failure. 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 dialysis m/w/f History of Any Multi-Drug Resistant Organisms: MRSA Date of last positivie culture/infection: 12/26/16 MDRO Source:: NASAL Past Surgical History: Heart Catheterization, Heart Catheterization With Stent Additional Past Surgical History / Comment(s): liver transplant 2005 d/t non alcoholic steatohepatits d/t fatty liver, colonoscopy, insertion lt arm fistula(in past had hemodialysis)-kidney implant 2011, lt shoulder sx has pin in place, rt wrist sx with pins, cataract removal and lens implants bilaterally 2013. Past Anesthesia/Blood Transfusion Reactions: No Reported Reaction Date of Last Stent Placement:: 2007 Past Psychological History: No Psychological Hx Reported Smoking Status: Former smoker Past Alcohol Use History: Unable to Obtain Past Drug Use History: Unable to Obtain - Past Family History Father Family Medical History: No Reported History, Cancer, Hypertension Additional Family Medical History / Comment(s): Father in his 80's. Mother Family Medical History: Diabetes Mellitus, Hypertension Additional Family Medical History / Comment(s): Mother in her 80's. Medications and Allergies Home Medications Medication Instructions Recorded Confirmed Type Atorvastatin [Lipitor] 20 mg PO HS@2100 08/18/14 09/30/18 History Tacrolimus [Prograf] 3 mg PO QAM 08/18/14 09/30/18 History Allopurinol [Zyloprim] 100 mg PO DAILY@0800 10/10/16 09/30/18 History Tacrolimus [Prograf] 4 mg PO HS 11/26/16 09/30/18 History hydrALAZINE HCL [Apresoline] 25 mg PO TID #90 tab 11/29/16 09/30/18 Rx Metoprolol Tartrate [Lopressor] 50 mg PO HS@2100 12/25/16 09/30/18 History Cholecalciferol (Vitamin D3) 2,000 unit PO DAILY@0800 08/05/18 09/30/18 History [Vitamin D3] Furosemide [Lasix] 80 mg PO BID 08/05/18 09/30/18 History Magnesium Oxide [Mag-Ox] 400 mg PO BID@0800,1700 08/05/18 09/30/18 History Multivitamins, Thera [Multivitamin 1 tab PO DAILY@1700 08/05/18 09/30/18 History (formulary)] Mycophenolate Mofetil [Cellcept] 500 mg PO BID@0800,2100 08/05/18 09/30/18 History predniSONE 2.5 mg PO DAILY@0800 08/05/18 09/30/18 History Aspirin 81 mg PO DAILY@1700 09/01/18 09/30/18 History Bisacodyl [Dulcolax] 10 mg RECTAL DAILY PRN 09/01/18 09/30/18 History Docusate [Colace] 100 mg PO BID@0800,1700 09/01/18 09/30/18 History INSULIN ASPART (NovoLOG) [NovoLOG See Protocol SQ ACHS 09/01/18 09/30/18 History (formulary)] Metoprolol Tartrate [Lopressor] 100 mg PO DAILY@0800 09/01/18 09/30/18 History Nepro 1 can PO BID-W/MEALS 09/01/18 09/30/18 History Pantoprazole [Protonix] 40 mg PO DAILY@0800 09/01/18 09/30/18 History Ipratropium-Albuterol Nebulize 3 ml INHALATION RT-QID ampul.neb 09/05/18 09/30/18 Rx [Duoneb 0.5 mg-3 mg/3 ml Soln] Acetaminophen [Tylenol] 650 mg PO Q4H PRN 09/30/18 09/30/18 History HYDROcodone/APAP 10-325MG [[place] 1 tab PO QID 09/30/18 09/30/18 History 10-325] Insulin Glargine [Lantus] 10 unit SQ HS@2100 09/30/18 09/30/18 History Allergies Allergy/AdvReac Type Severity Reaction Status Date / Time heaton Allergy Unknown Verified 09/30/18 13:46 codeine Allergy Rash/Hives Verified 09/30/18 13:46 erythromycin base Allergy Swelling Verified 09/30/18 13:46 Physical Exam Vitals: Vital Signs Temp Pulse Resp BP Pulse Ox 09/30/18 14:03 83 22 113/32 98 09/30/18 14:00 82 20 103/36 97 09/30/18 13:06 98.1 F 86 18 99/50 99 Intake and Output 09/30/18 09/30/18 09/30/18 06:59 14:59 22:59 Other: Weight 145 kg Head normocephalic Neck supple Lungs clear to auscultation bilaterally no wheezing or crackles Heart regular rate and rhythm S1-S2, no rub or gallop Abdomen is soft nontender nondistended positive bowel sounds no hepatosplenomegaly Extremities 2-3+ pitting edema bilateral lower extremities. Bilateral lower extremity cellulitis of the tibial area and around into the calves. Patient does have blisters noted on both tibias that have broken open. There is a yellowish drainage noted on his bandages. Legs are tender with palpation and movement Neuro awake but confused Results CBC & Chem 7: 09/30/18 13:24 09/30/18 13:24 Labs: Abnormal Lab Results - Last 24 Hours (Table) 09/30/18 09/30/18 09/30/18 Range/Units 13:24 13:24 13:24 WBC 11.8 H (3.8-10.6) k/uL RBC 3.63 L (4.30-5.90) m/uL Hgb 9.3 L (13.0-17.5) gm/dL Hct 31.0 L (39.0-53.0) % MCHC 29.9 L (31.0-37.0) g/dL RDW 18.1 H (11.5-15.5) % Neutrophils # 10.4 H (1.3-7.7) k/uL Lymphocytes # 0.6 L (1.0-4.8) k/uL Sodium 134 L (137-145) mmol/L Chloride 95 L (98-107) mmol/L BUN 38 H (9-20) mg/dL Creatinine 2.70 H (0.66-1.25) mg/dL Glucose 38 L* (74-99) mg/dL POC Glucose (mg/dL) (75-99) mg/dL AST 13 L (17-59) U/L ALT 15 L (21-72) U/L Alkaline Phosphatase 150 H (38-126) U/L Troponin I 0.082 H* (0.000-0.034) ng/mL Total Protein 5.0 L (6.3-8.2) g/dL Albumin 2.8 L (3.5-5.0) g/dL 09/30/18 09/30/18 Range/Units 14:16 15:21 WBC (3.8-10.6) k/uL RBC (4.30-5.90) m/uL Hgb (13.0-17.5) gm/dL Hct (39.0-53.0) % MCHC (31.0-37.0) g/dL RDW (11.5-15.5) % Neutrophils # (1.3-7.7) k/uL Lymphocytes # (1.0-4.8) k/uL Sodium (137-145) mmol/L Chloride (98-107) mmol/L BUN (9-20) mg/dL Creatinine (0.66-1.25) mg/dL Glucose (74-99) mg/dL POC Glucose (mg/dL) 108 H 42 L (75-99) mg/dL AST (17-59) U/L ALT (21-72) U/L Alkaline Phosphatase (38-126) U/L Troponin I (0.000-0.034) ng/mL Total Protein (6.3-8.2) g/dL Albumin (3.5-5.0) g/dL Assessment and Plan Assessment: 1. Fever and altered mental status: Likely due to metabolic encephalopathy due to bilateral lower extremity cellulitis and possible pneumonia. 2. Bilateral lower extremity cellulitis and blisters and edema: Consult infectious disease for wound care. Continue cefepime and vancomycin. Check blood cultures. Check venous Doppler rule out DVT 3. Healthcare associated pneumonia: Continue antibiotics. Infectious disease following 4. Diabetes mellitus type 2 with episodes of hypoglycemia due to poor oral intake. Patient has been given an amp of D50. Hold patient's insulin. Add sliding scale coverage with Accu-Cheks every before meals and at bedtime. Patient started on D5 half-normal saline in the ER at 100 mL an hour. Previous A1c 7.58 5. Hypotension: Possibly related to acute infection and sepsis. Patient receiving IV fluids. We'll hold patient's hydralazine. Parameters have been placed around the metoprolol FOR SBP less than 110 or heart rate less than 55. Hold evening dose of Lasix. Resume Lasix tomorrow morning 6. Sepsis present on admission: Patient had evidence of infection with pneumonia and bilateral lower extremity cellulitis. Leukocytosis and hypotension. Per ER correction reported a fever of 102 7. Chronic anemia likely related to renal failure. Check iron studies. Continue to monitor 8. Mildly elevated troponin: Repeat troponin. EKG showing wide QRS a left bundle branch block. Consult cardiology 9. End-stage renal disease on hemodialysis Saturday. Last hemodialysis yesterday. Consult nephrology 10. History of chronic paroxysmal atrial fibrillation not on anticoagulation. On previous admission cardiology discontinue Eliquis due to low hemoglobin 11. Status post kidney transplant in 2011 12. Status post liver transplant 2005 13. History of coronary artery disease with cardiac stents 14. History of chronic systolic congestive heart failure with an EF of 45-50 15. History of non-Hodgkin's lymphoma 16. Hyperlipidemia GI prophylaxis Protonix and DVT prophylaxis subcu heparin Time with Patient: Greater than 30 (Greater than 50% of the total time spent in counseling and coordination of care.I performed an examination of the patient and discussed their management with the physician Wire Insulator. I have reviewed the Physician Wire Insulator's notes and agree with the documented findings and plan of care)
[2018-09-30] MEDS ORDERED: FUROSEMIDE 80 MG TAB PO SCH (16:30)
[2018-09-30 17:29] LABS: Glucose,Whole Blood 66 mg/dL (75-99)
[2018-09-30] MEDS ORDERED: NON-FORMULARY DRUG (Nepro 1 CAN) PO SCH (17:30)
[2018-09-30] MEDS: IPRATROPIUM-ALBUTEROL 3 ML NEB INHALATION SCH ×2 (17:40→21:46)
[2018-09-30 17:50] LABS: Glucose,Whole Blood 62 mg/dL (75-99)
[2018-09-30 18:07] LABS: Glucose,Whole Blood 63 mg/dL (75-99)
[2018-09-30 18:23] LABS: Glucose,Whole Blood 62 mg/dL (75-99)
[2018-09-30] MEDS: INSULIN ASPART (NovoLOG) 100 UNIT/ML VIAL SQ SCH (19:30)
[2018-09-30 19:54] LABS: Glucose,Whole Blood 68 mg/dL (75-99)
[2018-09-30] MEDS ORDERED: CEFEPIME 2 GM in SODIUM CHLORIDE 0.9% 100 ML IVPB ONE (20:00)
[2018-09-30] MEDS: MULTIVITAMINS, THERA 1 EACH TAB PO SCH (20:02)
[2018-09-30] MEDS: HYDROcodone/APAP 10-325MG 1 EACH TAB PO SCH (20:02)
[2018-09-30] MEDS: MAGNESIUM OXIDE 400 MG TAB PO SCH (20:02)
[2018-09-30] MEDS: ASPIRIN 81 MG PO SCH (20:02)
[2018-09-30 20:12] LABS: Glucose,Whole Blood 65 mg/dL (75-99)
[2018-09-30 20:33] LABS: Glucose,Whole Blood 100 mg/dL (75-99)
[2018-09-30] MEDS: ATORVASTATIN 20 MG TAB PO SCH (21:30)
[2018-09-30] MEDS: METOPROLOL TARTRATE 50 MG TAB PO SCH (21:30)
[2018-09-30] MEDS: DOCUSATE 100 MG CAP PO SCH (21:30)
[2018-09-30] MEDS: MYCOPHENOLATE MOFETIL 250 MG CAP PO SCH (21:31)
[2018-09-30] MEDS: TACROLIMUS 1 MG CAP PO SCH (21:31)
[2018-10-01] MEDS: INSULIN ASPART (NovoLOG) 100 UNIT/ML VIAL SQ SCH ×5 (00:49→21:12)
[2018-10-01] MEDS: PIPERACILLIN-TAZOBACTAM 3.375 GM in SODIUM CHLORIDE 0.9% 100 ML IVPB SCH ×3 (01:22→22:17)
[2018-10-01] MEDS: HYDROcodone/APAP 10-325MG 1 EACH TAB PO SCH ×5 (03:13→21:40)
[2018-10-01 03:37] LABS: Iron Saturation 3.07 (15.00-50.00)
[2018-10-01] MEDS ORDERED: CEFEPIME 2 GM in SODIUM CHLORIDE 0.9% 100 ML IVPB SCH (04:00)
[2018-10-01] MEDS: SODIUM CHLORIDE 0.9% 1,000 ML IV SCH ×3 (04:02→21:12)
[2018-10-01] MEDS: IPRATROPIUM-ALBUTEROL 3 ML NEB INHALATION SCH ×4 (05:24→20:09)
[2018-10-01 05:57] LABS: Glucose,Whole Blood 91 mg/dL (75-99)
[2018-10-01 06:49] LABS: Anisocytosis Slight; Basophils % (A) 0 %; Eosinophils # (A) 0.1 k/uL (0-0.7); Eosinophils % (A) 1 %; HCT 31.9 % (39.0-53.0); Hypochromasia Marked; Lymphocytes # (A) 0.7 k/uL (1.0-4.8); Lymphocytes % (A) 6 %; MCH 24.7 pg (25.0-35.0); MCHC 28.3 g/dL (31.0-37.0); MCV 87.4 fL (80.0-100.0); Mean Platelet Volume 7.5; Monocytes # (A) 0.5 k/uL (0-1.0); Monocytes % (A) 5 %; Neutrophils # (A) 9.9 k/uL (1.3-7.7); Neutrophils % (A) 86 %; Platelet Count 349 k/uL (150-450); RBC 3.64 m/uL (4.30-5.90); WBC 11.5 k/uL (3.8-10.6)
[2018-10-01 07:04] LABS: Albumin 2.6 g/dL (3.5-5.0); Calcium 8.7 mg/dL (8.4-10.2); Potassium 5.1 mmol/L (3.5-5.1); Total Bilirubin 0.7 mg/dL (0.2-1.3); Total Protein 4.9 g/dL (6.3-8.2)
--- NOTE | 2018-10-01 07:36 | CONS ---
CONSULTATION DATE OF SERVICE: 09/30/2018 REASON FOR CONSULTATION: Pneumonia and lower extremity cellulitis. HISTORY OF PRESENT ILLNESS: The patient is a 72-year-old male with past medical history of end-stage renal disease on hemodialysis, previous history of failed kidney transplant. The patient has been brought in to the ER from extended care facility for increasing agitation and a fever of 102 degrees Fahrenheit. The patient apparently was given Tylenol prior to arrival to the hospital. The patient on admission noticed to be afebrile. Patient did have mildly elevated troponin of 0.074. His white count elevated 11.8 with elevated BUN and creatinine 38 and 2.70. The patient did have a chest x-ray which shows some increased density right infrahilar region and right suprahilar region which may reflect developing infiltrate. The patient has been started on cefepime 2 grams q.8 and vancomycin pharmacy to dose. Infectious Disease was consulted for further recommendation regarding antibiotic therapy. Most of the information has been obtained from review of the chart and talking to nursing staff. The patient was slightly lethargic and agitated and coherent history, however, enough specifically for symptoms of any headache. no nausea, no vomiting or any diarrhea reported either. REVIEW OF SYSTEMS: Positive points have been mentioned in HPI. Rest of the systems are negative. PAST MEDICAL HISTORY: COPD, asthma, heart failure, diabetes mellitus, gastroesophageal reflux disease, hypertension, hyperlipidemia, pneumonia, seizure disorder, end-stage renal disease on hemodialysis. PAST SURGICAL HISTORY: PTCA with stent, kidney transplant failed, left arm AV fistula for dialysis. SOCIAL HISTORY: Remote history of smoking. No drinking or drug use. FAMILY HISTORY: Father history of cancer and hypertension. Mother history of diabetes and hypertension. ALLERGIES: Allergies to CODEINE and ERYTHROMYCIN. MEDICATIONS: Medications include the patient is currently on vancomycin 1250 pharmacy to dose. He is on Prograf, prednisone, Protonix, CellCept, Reglan, Lopressor, Mag oxide, Lasix, Colace, cefepime 2 grams q.8, Lipitor, aspirin, Zyloprim, DuoNeb, [place] and Tylenol. PHYSICAL EXAMINATION: On examination, blood pressure is 112/68 with a pulse of 83, temperature 98.7. He is 99% on room air. General description is an elderly male lying in bed in no distress. No tachypnea or accessory muscle of respiration use. HEENT examination shows slight pallor. No scleral icterus. Oral mucous membrane is dry. No pharyngeal erythema or thrush. NECK: Trachea central. No thyromegaly. LUNGS: Unlabored breathing, decreased breath sounds at the bases. No wheeze or crackle. HEART: S1, S2. Regular rate and rhythm. ABDOMEN: Soft, no tenderness. EXTREMITIES: With diffuse swelling with minimal redness, slightly painful to touch. No open wounds or any drainage. NEUROLOGICALLY: Patient is awake, alert, oriented x . Mood and affect normal. LABS: Hemoglobin is 9.3, white count 11.8. INR 1.0. BUN of 38, creatinine 2.70. Troponin is slightly elevated. Chest x-ray with right sided infiltrate. DIAGNOSTIC IMPRESSION AND PLAN: Patient admitted to the hospital with fever of 102 degrees Fahrenheit. The patient did have elevated white count of 11.8 meeting criteria for systemic inflammatory response syndrome/sepsis source is likely right-sided pneumonia with question of possible aspiration or gram-negative in this patient who is a care home resident has been in and out of the hospital resistant gram-negative as well as gram-positive pathogen such as Pseudomonas and methicillin-resistant Staphylococcus aureus. PLAN: 1. We will try to obtain sputum for Gram stain culture and sensitivity. 2. Discontinue cefepime. Start the patient on Zosyn 3.375 grams q. hours and continue vancomycin pharmacy to dose. 3. We will follow up on clinical condition and culture to further adjust medication if needed. Thank you for this consultation. Will follow this patient along with you. MMODL / IJN: [id number] /
--- NOTE | 2018-10-01 08:25 | XR ---
EXAMINATION TYPE: XR chest 2V DATE OF EXAM: 10/01/2018 COMPARISON: 09/30/2018 HISTORY: History of pneumothorax. Shortness of breath. Pneumonia. TECHNIQUE: Frontal and lateral views of the chest are obtained. FINDINGS: There is improved aeration of the right lung base. There is no focal air space opacity, pl eural effusion, or pneumothorax seen. There is an unchanged right-sided central venous catheter termi nating in the cavoatrial junction. The cardiac silhouette size is within normal limits. The osseous structures are intact. Moderate multilevel degenerative changes of the spine are noted. Pulmonary hy perinflation and flattening of the diaphragms on the lateral view relates to underlying emphysema. IMPRESSION: Improved aeration of the right lung base in comparison the prior therefore given the freida rt-term interval resolution the previously seen density represented atelectasis. No acute cardiopulmo nary pathology.
[2018-10-01] MEDS: METOPROLOL TARTRATE 50 MG TAB PO SCH ×2 (08:34→21:40)
[2018-10-01] MEDS: FUROSEMIDE 80 MG TAB PO SCH ×2 (08:34→12:44)
[2018-10-01] MEDS: MAGNESIUM OXIDE 400 MG TAB PO SCH ×2 (08:34→16:52)
[2018-10-01] MEDS: TACROLIMUS 1 MG CAP PO SCH ×2 (08:35→21:41)
[2018-10-01] MEDS: MYCOPHENOLATE MOFETIL 250 MG CAP PO SCH ×2 (08:35→21:41)
[2018-10-01] MEDS: DOCUSATE 100 MG CAP PO SCH ×2 (08:35→16:52)
[2018-10-01] MEDS: ALLOPURINOL 100 MG TAB PO SCH (08:35)
[2018-10-01] MEDS: PANTOPRAZOLE 40 MG TABLET PO SCH (08:35)
[2018-10-01] MEDS: CHOLECALCIFEROL 1,000 UNIT TAB PO SCH (08:35)
[2018-10-01] MEDS: predniSONE 2.5 MG TAB PO SCH (08:35)
--- NOTE | 2018-10-01 08:48 | US ---
EXAMINATION TYPE: US venous doppler duplex LE BI DATE OF EXAM: 10/01/2018 8:01 AM COMPARISON: 08/08/2018 CLINICAL HISTORY: 72-year-old male bilateral lower extremity edema and pain. Bilateral leg swelling SIDE PERFORMED: Bilateral TECHNIQUE: The lower extremity deep venous system is examined utilizing real time linear array sonog sahylee with graded compression, doppler sonography and color-flow sonography. FINDINGS: VESSELS IMAGED: External Iliac Vein (EIV) Common Femoral Vein Deep Femoral Vein Greater Saphenous Vein * Femoral Vein Popliteal Vein Small Saphenous Vein * Proximal Calf Veins (* superficial vessels) Right Leg: Negative for DVT Left Leg: Negative for DVT IMPRESSION: No evidence for DVT within the bilateral lower extremities imaged from the groin to the upper calves.
[2018-10-01] MEDS ORDERED: VANCOMYCIN 1,250 MG in SODIUM CHLORIDE 0.9% 250 ML IVPB ONE (09:00)
--- NOTE | 2018-10-01 09:46 | P.CRDCN ---
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 Patient has been on hemodialysis since. He had a recent hospitalization earlier this month with pneumonia, he also has non-Hodgkin's lymphoma, hypertension, hyperlipidemia, MRSA, he came to the emergency room 3 days ago with fever, and wanted to be discharged back home. Patient also has extreme cellulitis of bilateral lower extremities with open areas bilaterally, dressings are in place. Because of elevated fever he again was admitted to the hospital on this occasion. Chest x- ray on admission revealed suggestion of increased density in the right infrahilar region and right suprahilar region which may reflect a developing infiltrate. EKG shows a normal sinus rhythm with a left bundle-branch block pattern and nonspecific ST-T wave changes. Venous duplex study did not reveal evidence for DVT in the bilateral lower extremities. Repeat chest x-ray showed improved aeration of the right lung base in comparison with prior. Blood pressure 120/70 with a heart rate in the 80s, 99% on room air. White blood cell count 11.5, hemoglobin 9.0, platelet count 349. Sodium 132, potassium 5.1, BUN 41 and creatinine 3.1. Glucose level 38 on admission, iron 5 TIBC 163 and iron saturation 3.07, ferritin 1423 total bilirubin 0.7 AST 13 ALT 15 alk phos 150 BNP level 87,600. Troponins 0.08, 0.074. Past Medical History Past Medical History: Asthma, Cancer, Heart Failure, COPD, Diabetes Mellitus, GERD/Reflux, Hyperlipidemia, Hypertension, Osteoarthritis (OA), Pneumonia, Renal Disease, Seizure Disorder Additional Past Medical History / Comment(s): 06/13/15 Pt presented to [facility] ER with SOB. He is admitted with clinical impression of CHF exacerbation, dyspnea and hyperglycemia, renal failure. Other HX: Resp falure 2-20-11, CHF systolic dysfunction, tracheobronchitis, IDDM type II, pneumonia 08/18/14, tracheobronchitis, 01/2015 echo with EF 45%, chronic renal failure-briefly on dialysis- rt kidney implanted in his abdomin in 2011, liver transplant in 2005 for non alcoholic steatohepatitis, non hodgkins lymphoma 2006, last seizure 201 3, hyponatremia, hypomagnesemia, cardiac arrhythmia unknown kind. dialysis m/w/f History of Any Multi-Drug Resistant Organisms: MRSA Date of last positivie culture/infection: 12/26/16 MDRO Source:: NASAL Past Surgical History: Heart Catheterization, Heart Catheterization With Stent Additional Past Surgical History / Comment(s): liver transplant 2005 d/t non alcoholic steatohepatits d/t fatty liver, colonoscopy, insertion lt arm fistula(in past had hemodialysis)-kidney implant 2011, lt shoulder sx has pin in place, rt wrist sx with pins, cataract removal and lens implants bilaterally 2013. Past Anesthesia/Blood Transfusion Reactions: No Reported Reaction Date of Last Stent Placement:: 2007 Smoking Status: Former smoker - Past Family History Father Family Medical History: No Reported History, Cancer, Hypertension Additional Family Medical History / Comment(s): Father in his 80's. Mother Family Medical History: Diabetes Mellitus, Hypertension Additional Family Medical History / Comment(s): Mother in her 80's. Medications and Allergies Home Medications Medication Instructions Recorded Confirmed Type Atorvastatin [Lipitor] 20 mg PO HS@2100 08/18/14 09/30/18 History Tacrolimus [Prograf] 3 mg PO QA 08/18/14 09/30/18 History Allopurinol [Zyloprim] 100 mg PO DAILY@0800 10/10/16 09/30/18 History Tacrolimus [Prograf] 4 mg PO HS 11/26/16 09/30/18 History hydrALAZINE HCL [Apresoline] 25 mg PO TID #90 tab 11/29/16 09/30/18 Rx Metoprolol Tartrate [Lopressor] 50 mg PO HS@2100 12/25/16 09/30/18 History Cholecalciferol (Vitamin D3) 2,000 unit PO DAILY@0800 08/05/18 09/30/18 History [Vitamin D3] Furosemide [Lasix] 80 mg PO BID 08/05/18 09/30/18 History Magnesium Oxide [Mag-Ox] 400 mg PO BID@0800,1700 08/05/18 09/30/18 History Multivitamins, Thera [Multivitamin 1 tab PO DAILY@1700 08/05/18 09/30/18 History (formulary)] Mycophenolate Mofetil [Cellcept] 500 mg PO BID@0800,2100 08/05/18 09/30/18 History predniSONE 2.5 mg PO DAILY@0800 08/05/18 09/30/18 History Aspirin 81 mg PO DAILY@1700 09/01/18 09/30/18 History Bisacodyl [Dulcolax] 10 mg RECTAL DAILY PRN 09/01/18 09/30/18 History Docusate [Colace] 100 mg PO BID@0800,1700 09/01/18 09/30/18 History INSULIN ASPART (NovoLOG) [NovoLOG See Protocol SQ ACHS 09/01/18 09/30/18 History (formulary)] Metoprolol Tartrate [Lopressor] 100 mg PO DAILY@0800 09/01/18 09/30/18 History Nepro 1 can PO BID-W/MEALS 09/01/18 09/30/18 History Pantoprazole [Protonix] 40 mg PO DAILY@0800 09/01/18 09/30/18 History Ipratropium-Albuterol Nebulize 3 ml INHALATION RT-QID ampul.neb 09/05/18 09/30/18 Rx [Duoneb 0.5 mg-3 mg/3 ml Soln] Acetaminophen [Tylenol] 650 mg PO Q4H PRN 09/30/18 09/30/18 History HYDROcodone/APAP 10-325MG [[place] 1 tab PO QID 09/30/18 09/30/18 History 10-325] Insulin Glargine [Lantus] 10 unit SQ HS@2100 09/30/18 09/30/18 History Allergies Allergy/AdvReac Type Severity Reaction Status Date / Time heaton Allergy Unknown Verified 09/30/18 13:46 codeine Allergy Rash/Hives Verified 09/30/18 13:46 erythromycin base Allergy Swelling Verified 09/30/18 13:46 Physical Exam Vitals: Vital Signs Temp Pulse Pulse Resp BP BP Pulse Ox 10/01/18 05:35 82 10/01/18 05:26 80 10/01/18 04:00 98.4 F 83 18 121/73 99 10/01/18 00:00 86 18 101/51 98 09/30/18 22:06 80 09/30/18 21:47 82 09/30/18 20:00 98.5 F 89 18 127/61 100 09/30/18 17:51 84 09/30/18 17:41 82 100 09/30/18 16:35 98.7 F 83 18 112/68 99 09/30/18 16:00 82 86 16 99/55 126/78 99 09/30/18 15:30 81 19 103/50 98 09/30/18 15:00 81 16 143/59 98 09/30/18 14:03 83 22 113/32 98 09/30/18 14:00 82 20 103/36 97 09/30/18 13:06 98.1 F 86 18 99/50 99 Intake and Output 09/30/18 10/01/18 10/01/18 22:59 06:59 14:59 Intake Total 360 700 200 Balance 360 700 200 Intake: IV 700 Dextrose 5%-0.45% NaCl 1, 700 000 ml @ 100 mls/hr IV . Q10H ONE Rx#:[id number] Oral 360 200 Other: Voiding Method Urinal # Voids 0 0 # Bowel Movements 0 0 PHYSICAL EXAMINATION: GENERAL: 72-year-old gentleman in no acute distress at the time of my examination HEENT: Head is atraumatic, normocephalic. Pupils equal, round. Sclera anicteric. Conjunctiva are clear. Mucous membranes of the mouth are moist. Neck is supple. There is elevated jugular venous pressure. No carotid bruit is heard. HEART EXAMINATION: Heart S1-S2 systolic murmur is heard. CHEST EXAMINATION: Lungs reveal mild basilar crackles ABDOMEN: Soft, nontender. Bowel sounds are heard. No organomegaly noted. EXTREMITIES: 1+ peripheral pulses with 2-3+ pitting edema, significant bilateral lower extremity cellulitis, dressings in place.. NEUROLOGIC patient is awake, alert and oriented 1 . . Results 10/01/18 05:42 10/01/18 05:42 Cardiac Enzymes 09/30/18 09/30/18 09/30/18 Range/Units 13:24 13:24 19:36 AST 13 L (17-59) U/L Troponin I 0.082 H* 0.074 H* (0.000-0.034) ng/mL 10/01/18 Range/Units 05:42 AST 13 L (17-59) U/L Troponin I (0.000-0.034) ng/mL Coagulation 09/30/18 Range/Units 13:24 PT 11.1 (9.0-12.0) sec APTT 27.2 (22.0-30.0) sec CBC 09/30/18 10/01/18 Range/Units 13:24 05:42 WBC 11.8 H 11.5 H (3.8-10.6) k/uL RBC 3.63 L 3.64 L (4.30-5.90) m/uL Hgb 9.3 L 9.0 L (13.0-17.5) gm/dL Hct 31.0 L 31.9 L (39.0-53.0) % Plt Count 411 349 (150-450) k/uL Comprehensive Metabolic Panel 09/30/18 10/01/18 Range/Units 13:24 05:42 Sodium 134 L 132 L (137-145) mmol/L Potassium 4.7 5.1 (3.5-5.1) mmol/L Chloride 95 L 95 L (98-107) mmol/L Carbon Dioxide 25 24 (22-30) mmol/L BUN 38 H 41 H (9-20) mg/dL Creatinine 2.70 H 3.11 H (0.66-1.25) mg/dL Glucose 38 L* 82 (74-99) mg/dL Calcium 8.7 8.7 (8.4-10.2) mg/dL AST 13 L 13 L (17-59) U/L ALT 15 L 22 (21-72) U/L Alkaline Phosphatase 150 H 154 H (38-126) U/L Total Protein 5.0 L 4.9 L (6.3-8.2) g/dL Albumin 2.8 L 2.6 L (3.5-5.0) g/dL Current Medications Generic Name Dose Route Start Last Admin Trade Name Freq PRN Reason Stop Dose Admin Acetaminophen 650 mg 09/30/18 15:49 Tylenol Tab PO Q4H PRN Pain Hydrocodone Bitart/Acetaminophen 1 each 03/26/19 18:00 10/01/18 08:36 [place] 10 PO 1 each QID MAGDI Administration Albuterol/Ipratropium 3 ml 09/30/18 16:00 10/01/18 05:24 Duoneb 0.5 Mg-3 Mg/3 Ml Soln INHALATION 3 ml RT-QID MAGDI Administration Allopurinol 100 mg 10/01/18 08:00 10/01/18 08:35 Zyloprim PO 100 mg DAILY@0800 MAGDI Administration Aspirin 81 mg 09/30/18 17:00 09/30/18 20:02 Aspirin PO 81 mg DAILY@1700 MAGDI Administration Atorvastatin Calcium 20 mg 09/30/18 21:00 09/30/18 21:30 Lipitor PO 20 mg HS@2100 MAGDI Administration Bisacodyl 10 mg 09/30/18 15:49 Dulcolax RECTAL DAILY PRN Constipation Cholecalciferol 2,000 unit 10/01/18 08:00 10/01/18 08:35 Vitamin D3 PO 2,000 unit DAILY@0800 MAGDI Administration Docusate Sodium 100 mg 09/30/18 17:00 10/01/18 08:35 Colace PO 100 mg BID@0800,1700 MAGDI Administration Furosemide 80 mg 10/01/18 09:00 10/01/18 08:34 Lasix PO 80 mg BID@0900,1600 MAGDI Administration Sodium Chloride 1,000 mls @ 100 mls/hr 09/30/18 13:45 10/01/18 04:02 Saline 0.9% IV 100 mls/hr .Q10H MAGDI Administration Vancomycin HCl 1,250 mg/ 250 mls @ 125 mls/hr 10/01/18 09:00 10/01/18 08:36 Sodium Chloride IVPB 10/01/18 10:59 125 mls/hr ONCE ONE Administration Piperacillin Sod/Tazobactam 100 mls @ 25 mls/hr 09/30/18 22:00 10/01/18 08:34 Sod 3.375 gm/ Sodium Chloride IVPB 25 mls/hr Q8HR MAGDI Administration Insulin Aspart 0 unit 09/30/18 17:30 10/01/18 06:20 Novolog SQ Not Given ACHS [facility] Protocol Magnesium Oxide 400 mg 09/30/18 17:00 10/01/18 08:34 Mag-Ox PO 400 mg BID@0800,1700 MAGDI Administration Metoprolol Tartrate 50 mg 09/30/18 21:00 09/30/18 21:30 Lopressor PO 50 mg HS@2100 MAGDI Administration Metoprolol Tartrate 100 mg 10/01/18 08:00 10/01/18 08:34 Lopressor PO 100 mg DAILY@0800 MAGDI Administration Miscellaneous Information 1 each 09/30/18 15:11 Pharmacy To Dose Iv Vancomycin MISCELLANE DIRECTED PRN Per Protocol Miscellaneous Information 1 each 09/30/18 15:36 Pneumonia Protocol Utilized PO ONCE PRN Per Protocol Multivitamins 1 each 09/30/18 17:00 09/30/18 20:02 Theragran PO 1 each DAILY@1700 MAGDI Administration Mycophenolate Mofetil 500 mg 09/30/18 21:00 10/01/18 08:35 Cellcept PO 500 mg BID@0800,2100 MAGDI Administration Pantoprazole Sodium 40 mg 10/01/18 08:00 10/01/18 08:35 Protonix PO 40 mg DAILY@0800 MAGDI Administration Prednisone 2.5 mg 10/01/18 08:00 10/01/18 08:35 PO 2.5 mg DAILY@0800 MAGDI Administration Tacrolimus 3 mg 10/01/18 09:00 10/01/18 08:35 Prograf PO 3 mg QAM MAGDI Administration Tacrolimus 4 mg 09/30/18 21:00 09/30/18 21:31 Prograf PO 4 mg HS MAGDI Administration Intake and Output 09/30/18 10/01/18 10/01/18 22:59 06:59 14:59 Intake Total 360 700 200 Balance 360 700 200 Intake: IV 700 Dextrose 5%-0.45% NaCl 1, 700 000 ml @ 100 mls/hr IV . Q10H ONE Rx#:[id number] Oral 360 200 Other: Voiding Method Urinal # Voids 0 0 # Bowel Movements 0 0 10/01/18 05:42 10/01/18 05:42 EKG Interpretations (text) EKG shows abnormal sinus rhythm with a left bundle-branch block pattern and nonspecific ST-T wave changes in the lateral leads. Assessment and Plan Plan: Assessment and plan 1. Fever and altered mental status: Likely due to metabolic encephalopathy. 2. Bilateral lower extremity cellulitis ,blisters and edema: On cefepime and vancomycin. 3. Healthcare associated pneumonia 4. Diabetes mellitus type 2 with episodes of hypoglycemia 5. Hypotension: Likely related to acute infection and sepsis. Patient receiving IV fluids. 6. Sepsis 7. Chronic anemia likely related to renal failure. 8. Mildly elevated troponin not consistent with acute coronary syndrome, likely secondary to sepsis 9. End-stage renal disease on hemodialysis Saturday. Last hemodialysis yesterday. 10. History of chronic paroxysmal atrial fibrillation not on anticoagulation. Eliquis discontinued on recent admission because of anemia 11. Status post kidney transplant in 2011 12. Status post liver transplant 2005 13. History of coronary artery disease with cardiac stents 14. History of chronic systolic congestive heart failure with an EF of 45-50 15. History of non-Hodgkin's lymphoma 16. Hyperlipidemia Plan The patient had an echo cardiac gram with Doppler study performed in July of this year which revealed an ejection fraction of 45-50%. LA was severely dilated, severe mitral regurgitation, moderate pulmonary hypertension moderate pulmonary and small pericardial effusion noted at that time. His abnormality in troponin is not consistent with acute coronary syndrome in his likely secondary to sepsis. On review of all prior admissions patient is noted to have abnormal troponins. Continue current medications. DNP note has been reviewed, I agree with a documented findings and plan of care. Patient was seen and examined.
[2018-10-01] MEDS: HYDROmorphone 1 MG/ML 1 ML SYRINGE IVP PRN ×3 (11:06→23:55)
[2018-10-01 11:39] LABS: Glucose,Whole Blood 94 mg/dL (75-99)
[2018-10-01] MEDS ORDERED: DARBEPOETIN ALFA 40 MCG/0.4 ML SYRINGE SQ SCH (12:00)
--- NOTE | 2018-10-01 12:01 | P.NPCON ---
History of Present Illness - Reason for Consult end stage renal disease - History of Present Illness Reason for consultation: End-stage renal disease History of present illness: Patient is a 72-year-old male seen in renal consultation for end-stage renal disease. He is maintained on hemodialysis on a Saturday schedule. Patient presented to the hospital due to fever of 102 degrees Fahren heit and pain in his lower extremities. Patient has wounds on his lower extremity and is being followed by infectious disease. He is also on antibiotics for pneumonia. Edema in his lower extremities has been progressively improving. He is currently seen while undergoing hemodialysis and is tolerating it well. He continues to complain of pain in his lower back as well as his lower extremities. No vomiting or diarrhea. Oral intake is fair. Denies chest pain or shortness of breath. Hemodynamically stable. No abdominal pain. Vital signs are stable. General: The patient appeared well nourished and normally developed. HEENT: Head exam is unremarkable. Neck is without jugular venous distension. LUNGS: Breath sounds decreased. HEART: Rate and Rhythm are regular. First and second heart sounds normal. No murmurs, rubs or gallops. ABDOMEN: Abdominal exam reveals normal bowel sounds. Non-tender and non- distended. No evidence of peritonitis. EXTREMITITES: 1+ edema. Lower extremities wrapped. Past Medical History Past Medical History: Asthma, Cancer, Heart Failure, COPD, Diabetes Mellitus, GERD/Reflux, Hyperlipidemia, Hypertension, Osteoarthritis (OA), Pneumonia, Renal Disease, Seizure Disorder Additional Past Medical History / Comment(s): 06/13/15 Pt presented to [facility] ER with SOB. He is admitted with clinical impression of CHF exacerbation, dyspnea and hyperglycemia, renal failure. 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 dialysis m/w/f History of Any Multi-Drug Resistant Organisms: MRSA Date of last positivie culture/infection: 12/26/16 MDRO Source:: NASAL Past Surgical History: Heart Catheterization, Heart Catheterization With Stent Additional Past Surgical History / Comment(s): liver transplant 2006 d/t non alcoholic steatohepatits d/t fatty liver, colonoscopy, insertion lt arm fistula(in past had hemodialysis)-kidney implant 2011, lt shoulder sx has pin in place, rt wrist sx with pins, cataract removal and lens implants bilaterally 2013. Past Anesthesia/Blood Transfusion Reactions: No Reported Reaction Date of Last Stent Placement:: 2007 Smoking Status: Former smoker - Past Family History Father Family Medical History: No Reported History, Cancer, Hypertension Additional Family Medical History / Comment(s): Father in his 80's. Mother Family Medical History: Diabetes Mellitus, Hypertension Additional Family Medical History / Comment(s): Mother in her 80's. Medications and Allergies Home Medications Medication Instructions Recorded Confirmed Type Atorvastatin [Lipitor] 20 mg PO HS@2100 08/18/14 09/30/18 History Tacrolimus [Prograf] 3 mg PO QA 08/18/14 09/30/18 History Allopurinol [Zyloprim] 100 mg PO DAILY@0800 10/10/16 09/30/18 History Tacrolimus [Prograf] 4 mg PO HS 11/26/16 09/30/18 History hydrALAZINE HCL [Apresoline] 25 mg PO TID #90 tab 11/29/16 09/30/18 Rx Metoprolol Tartrate [Lopressor] 50 mg PO HS@2100 12/25/16 09/30/18 History Cholecalciferol (Vitamin D3) 2,000 unit PO DAILY@0800 08/05/18 09/30/18 History [Vitamin D3] Furosemide [Lasix] 80 mg PO BID 08/05/18 09/30/18 History Magnesium Oxide [Mag-Ox] 400 mg PO BID@0800,1700 08/05/18 09/30/18 History Multivitamins, Thera [Multivitamin 1 tab PO DAILY@1700 08/05/18 09/30/18 History (formulary)] Mycophenolate Mofetil [Cellcept] 500 mg PO BID@0800,2100 08/05/18 09/30/18 History predniSONE 2.5 mg PO DAILY@0800 08/05/18 09/30/18 History Aspirin 81 mg PO DAILY@1700 09/01/18 09/30/18 History Bisacodyl [Dulcolax] 10 mg RECTAL DAILY PRN 09/01/18 09/30/18 History Docusate [Colace] 100 mg PO BID@0800,1700 09/01/18 09/30/18 History INSULIN ASPART (NovoLOG) [NovoLOG See Protocol SQ ACHS 09/01/18 09/30/18 History (formulary)] Metoprolol Tartrate [Lopressor] 100 mg PO DAILY@0800 09/01/18 09/30/18 History Nepro 1 can PO BID-W/MEALS 09/01/18 09/30/18 History Pantoprazole [Protonix] 40 mg PO DAILY@0800 09/01/18 09/30/18 History Ipratropium-Albuterol Nebulize 3 ml INHALATION RT-QID ampul.neb 09/05/18 09/30/18 Rx [Duoneb 0.5 mg-3 mg/3 ml Soln] Acetaminophen [Tylenol] 650 mg PO Q4H PRN 09/30/18 09/30/18 History HYDROcodone/APAP 10-325MG [[place] 1 tab PO QID 09/30/18 09/30/18 History 10-325] Insulin Glargine [Lantus] 10 unit SQ HS@2100 09/30/18 09/30/18 History Allergies Allergy/AdvReac Type Severity Reaction Status Date / Time heaton Allergy Unknown Verified 09/30/18 13:46 codeine Allergy Rash/Hives Verified 09/30/18 13:46 erythromycin base Allergy Swelling Verified 09/30/18 13:46 Physical Exam Vitals: Vital Signs Temp Pulse Pulse Resp BP BP Pulse Ox 10/01/18 11:35 97.6 F 84 16 113/76 10/01/18 08:00 97.0 F L 84 16 105/56 10/01/18 05:35 82 10/01/18 05:26 80 10/01/18 04:00 98.4 F 83 18 121/73 99 10/01/18 00:00 86 18 101/51 98 09/30/18 22:06 80 09/30/18 21:47 82 09/30/18 20:00 98.5 F 89 18 127/61 100 09/30/18 17:51 84 09/30/18 17:41 82 100 09/30/18 16:35 98.7 F 83 18 112/68 99 09/30/18 16:00 82 86 16 99/55 126/78 99 09/30/18 15:30 81 19 103/50 98 09/30/18 15:00 81 16 143/59 98 09/30/18 14:03 83 22 113/32 98 09/30/18 14:00 82 20 103/36 97 09/30/18 13:06 98.1 F 86 18 99/50 99 Intake and Output 09/30/18 10/01/18 10/01/18 22:59 06:59 14:59 Intake Total 751 701 4371 Balance 348 837 0392 Intake: IV 700 Dextrose 5%-0.45% NaCl 1, 700 000 ml @ 100 mls/hr IV . Q10H ONE Rx#:[id number] Intake, IV Titration 1150 Amount Piperacillin-Tazobactam 3 100 .375 gm In Sodium Chloride 0.9% 100 ml @ 25 mls/hr IVPB Q8HR [facility] Rx# :[id number] Sodium Chloride 0.9% 1, 800 000 ml @ 100 mls/hr IV . Q10H [facility] Rx#:[id number] Vancomycin 1,250 mg In 250 Sodium Chloride 0.9% 250 ml @ 125 mls/hr IVPB ONCE ONE Rx#:[id number] Oral 360 200 Other: Voiding Method Urinal Urinal # Voids 0 0 # Bowel Movements 0 0 Weight 63.503 kg Results - Lab Results Most recent lab results Calcium 8.7 mg/dL (8.4-10.2) 10/01/18 05:42 10/01/18 05:42 10/01/18 05:42 Assessment and Plan Plan: Assessment: 1. End-stage renal disease maintained on hemodialysis on a Saturday schedule. 2. Status post failed renal transplant. 3. History of liver transplant maintained on immunosuppression. 4. Pneumonia maintained on antibiotics. 5. Lower extremity cellulitis. 6. Hyponatremia secondary to chronic kidney disease. 7. Anemia of chronic kidney disease. Plan: Currently seen while undergoing hemodialysis. Next treatment on Saturday. Pain control. I will add Dilaudid as needed. Add Aranesp. Thank you for the consultation. I will continue to follow the patient with you during his hospital stay.
--- NOTE | 2018-10-01 12:11 | P.PN ---
Subjective Progress Note Date: 10/01/18 This is a 72-year-old male with a known past medical history of congestive heart failure, end-stage renal disease with hemodialysis Saturday, coronary artery disease with cardiac stents, chronic paroxysmal atrial fibrillation, diabetes mellitus type 2, kidney transplant in 2011 and liver tra nsplant in 2005, non-Hodgkin's lymphoma, hyperlipidemia and hypertension. Patient was transferred from [facility] due to fever of 102 and agitation. Patient had been in the ER 3 days ago with a fever dairy could not find a source of infection and patient wanted to be discharged back home. Patient was also hospitalized earlier in September treated for pneumonia and discharged with Augmentin. Patient does have lower extremity cellulitis of both legs legs are swollen painful there are blisters that have broken open on both tibia areas. Patient does have a history of MRSA in the nose. He has been placed on IV vancomycin and cefepime in the ER. Infectious disease has been consulted. Venous Dopplers have been ordered to rule out DVT. Chest x-ray showing evidence of increased density in the right infrahilar region and right suprahilar region which may reflect developing infiltrate. White count elevated 11.8 lactic acid normal at 1.4. Patient also hypoglycemic per family members at bedside reporting that he is not eating well. Blood sugar of 38. Received D5 in the ER. Blood sugar did improve up to 108. Patient did have mildly elevated troponin and repeat troponin ordered EKG showing a wide QRS and left bundle branch block. Cardiology has been consulted. Patient denies chest pain or shortness of breath, nausea vomiting, bowel movement changes. X-ray little urine is on hemodialysis. Patient is confused. On 10/01/2018 patient is alert and oriented resting comfortably in chair about a hemodialysis. At this time patient is complaining of just generalized pain to left side. Patient denies chest pain or shortness of breath. Patient denies nausea vomiting or diarrhea. Cardiology, nephrology infectious disease is following Objective - Vital Signs Vital signs: Vital Signs Temp 97.6 F 10/01/18 11:35 Pulse 84 10/01/18 11:35 Resp 16 10/01/18 11:35 BP 113/76 10/01/18 11:35 Pulse Ox 99 10/01/18 04:00 Intake & Output 09/30/18 10/01/18 10/01/18 18:59 06:59 18:59 Intake Total 448 023 0919 Balance 166 154 4304 Weight 145 kg 63.503 kg Intake: IV 700 Dextrose 5%-0.45% NaCl 1, 700 000 ml @ 100 mls/hr IV . Q10H [facility] Rx#:[id number] Intake, IV Titration 1150 Amount Piperacillin-Tazobactam 3 100 .375 gm In Sodium Chloride 0.9% 100 ml @ 25 mls/hr IVPB Q8HR [facility] Rx# :[id number] Sodium Chloride 0.9% 1, 800 000 ml @ 100 mls/hr IV . Q10H [facility] Rx#:[id number] Vancomycin 1,250 mg In 250 Sodium Chloride 0.9% 250 ml @ 125 mls/hr IVPB ONCE [facility] Rx#:[id number] Oral 360 200 Other: Voiding Method Urinal Urinal # Voids 0 0 # Bowel Movements 0 0 - Exam Head normocephalic Neck supple Lungs clear to auscultation bilaterally no wheezing or crackles Heart regular rate and rhythm S1-S2, no rub or gallop Abdomen is soft nontender nondistended positive bowel sounds no he patosplenomegaly Extremities 2-3+ pitting edema bilateral lower extremities. Bilateral lower extremity cellulitis of the tibial area and around into the calves. Patient does have blisters noted on both tibias that have broken open. There is a yellowish drainage noted on his bandages. Legs are tender with palpation and movement Neuro awake but confused - Labs CBC & Chem 7: 10/01/18 05:42 10/01/18 05:42 Labs: Abnormal Lab Results - Last 24 Hours (Table) 09/30/18 09/30/18 09/30/18 Range/Units 13:24 13:24 13:24 WBC 11.8 H (3.8-10.6) k/uL RBC 3.63 L (4.30-5.90) m/uL Hgb 9.3 L (13.0-17.5) gm/dL Hct 31.0 L (39.0-53.0) % MCH (25.0-35.0) pg MCHC 29.9 L (31.0-37.0) g/dL RDW 18.1 H (11.5-15.5) % Neutrophils # 10.4 H (1.3-7.7) k/uL Lymphocytes # 0.6 L (1.0-4.8) k/uL Sodium 134 L (137-145) mmol/L Chloride 95 L (98-107) mmol/L BUN 38 H (9-20) mg/dL Creatinine 2.70 H (0.66-1.25) mg/dL Glucose 38 L* (74-99) mg/dL POC Glucose (mg/dL) (75-99) mg/dL Iron (65-175) ug/dL TIBC (228-460) ug/dL Iron Saturation (15.00-50.00) Ferritin (22.0-322.0) ng/mL AST 13 L (17-59) U/L ALT 15 L (21-72) U/L Alkaline Phosphatase 150 H (38-126) U/L Troponin I 0.082 H* (0.000-0.034) ng/mL Total Protein 5.0 L (6.3-8.2) g/dL Albumin 2.8 L (3.5-5.0) g/dL 09/30/18 09/30/18 09/30/18 Range/Units 14:16 15:21 15:52 WBC (3.8-10.6) k/uL RBC (4.30-5.90) m/uL Hgb (13.0-17.5) gm/dL Hct (39.0-53.0) % MCH (25.0-35.0) pg MCHC (31.0-37.0) g/dL RDW (11.5-15.5) % Neutrophils # (1.3-7.7) k/uL Lymphocytes # (1.0-4.8) k/uL Sodium (137-145) mmol/L Chloride (98-107) mmol/L BUN (9-20) mg/dL Creatinine (0.66-1.25) mg/dL Glucose (74-99) mg/dL POC Glucose (mg/dL) 108 H 42 L 103 H (75-99) mg/dL Iron (65-175) ug/dL TIBC (228-460) ug/dL Iron Saturation (15.00-50.00) Ferritin (22.0-322.0) ng/mL AST (17-59) U/L ALT (21-72) U/L Alkaline Phosphatase (38-126) U/L Troponin I (0.000-0.034) ng/mL Total Protein (6.3-8.2) g/dL Albumin (3.5-5.0) g/dL 09/30/18 09/30/18 09/30/18 Range/Units 17:27 17:47 18:06 WBC (3.8-10.6) k/uL RBC (4.30-5.90) m/uL Hgb (13.0-17.5) gm/dL Hct (39.0-53.0) % MCH (25.0-35.0) pg MCHC (31.0-37.0) g/dL RDW (11.5-15.5) % Neutrophils # (1.3-7.7) k/uL Lymphocytes # (1.0-4.8) k/uL Sodium (137-145) mmol/L Chloride (98-107) mmol/L BUN (9-20) mg/dL Creatinine (0.66-1.25) mg/dL Glucose (74-99) mg/dL POC Glucose (mg/dL) 66 L 62 L 63 L (75-99) mg/dL Iron (65-175) ug/dL TIBC (228-460) ug/dL Iron Saturation (15.00-50.00) Ferritin (22.0-322.0) ng/mL AST (17-59) U/L ALT (21-72) U/L Alkaline Phosphatase (38-126) U/L Troponin I (0.000-0.034) ng/mL Total Protein (6.3-8.2) g/dL Albumin (3.5-5.0) g/dL 09/30/18 09/30/18 09/30/18 Range/Units 18:22 19:36 19:36 WBC (3.8-10.6) k/uL RBC (4.30-5.90) m/uL Hgb (13.0-17.5) gm/dL Hct (39.0-53.0) % MCH (25.0-35.0) pg MCHC (31.0-37.0) g/dL RDW (11.5-15.5) % Neutrophils # (1.3-7.7) k/uL Lymphocytes # (1.0-4.8) k/uL Sodium (137-145) mmol/L Chloride (98-107) mmol/L BUN (9-20) mg/dL Creatinine (0.66-1.25) mg/dL Glucose (74-99) mg/dL POC Glucose (mg/dL) 62 L (75-99) mg/dL Iron 5 L (65-175) ug/dL TIBC 163 L (228-460) ug/dL Iron Saturation 3.07 L (15.00-50.00) Ferritin 1423.5 H (22.0-322.0) ng/mL AST (17-59) U/L ALT (21-72) U/L Alkaline Phosphatase (38-126) U/L Troponin I 0.074 H* (0.000-0.034) ng/mL Total Protein (6.3-8.2) g/dL Albumin (3.5-5.0) g/dL 09/30/18 09/30/18 09/30/18 Range/Units 19:52 20:11 20:32 WBC (3.8-10.6) k/uL RBC (4.30-5.90) m/uL Hgb (13.0-17.5) gm/dL Hct (39.0-53.0) % MCH (25.0-35.0) pg MCHC (31.0-37.0) g/dL RDW (11.5-15.5) % Neutrophils # (1.3-7.7) k/uL Lymphocytes # (1.0-4.8) k/uL Sodium (137-145) mmol/L Chloride (98-107) mmol/L BUN (9-20) mg/dL Creatinine (0.66-1.25) mg/dL Glucose (74-99) mg/dL POC Glucose (mg/dL) 68 L 65 L 100 H (75-99) mg/dL Iron (65-175) ug/dL TIBC (228-460) ug/dL Iron Saturation (15.00-50.00) Ferritin (22.0-322.0) ng/mL AST (17-59) U/L ALT (21-72) U/L Alkaline Phosphatase (38-126) U/L Troponin I (0.000-0.034) ng/mL Total Protein (6.3-8.2) g/dL Albumin (3.5-5.0) g/dL 10/01/18 10/01/18 Range/Units 05:42 05:42 WBC 11.5 H (3.8-10.6) k/uL RBC 3.64 L (4.30-5.90) m/uL Hgb 9.0 L (13.0-17.5) gm/dL Hct 31.9 L (39.0-53.0) % MCH 24.7 L (25.0-35.0) pg MCHC 28.3 L (31.0-37.0) g/dL RDW 18.0 H (11.5-15.5) % Neutrophils # 9.9 H (1.3-7.7) k/uL Lymphocytes # 0.7 L (1.0-4.8) k/uL Sodium 132 L (137-145) mmol/L Chloride 95 L (98-107) mmol/L BUN 41 H (9-20) mg/dL Creatinine 3.11 H (0.66-1.25) mg/dL Glucose (74-99) mg/dL POC Glucose (mg/dL) (75-99) mg/dL Iron (65-175) ug/dL TIBC (228-460) ug/dL Iron Saturation (15.00-50.00) Ferritin (22.0-322.0) ng/mL AST 13 L (17-59) U/L ALT (21-72) U/L Alkaline Phosphatase 154 H (38-126) U/L Troponin I (0.000-0.034) ng/mL Total Protein 4.9 L (6.3-8.2) g/dL Albumin 2.6 L (3.5-5.0) g/dL Assessment and Plan Assessment: 1. Fever and altered mental status: Likely due to metabolic encephalopathy due to bilateral lower extremity cellulitis and possible pneumonia. 2. Bilateral lower extremity cellulitis and blisters and edema: Consult infectious disease for wound care. Continue cefepime and vancomycin. Bilateral venous Doppler negative for DVT 3. Healthcare associated pneumonia: Continue antibiotics. Per infectious disease continue with Zosyn and vancomycin.. Cultures have been ordered 4. Diabetes mellitus type 2 with episodes of hypoglycemia due to poor oral intake. Patient has been given an amp of D50. Hold patient's insulin. Add sliding scale coverage with Accu-Cheks every before meals and at bedtime. Patient started on D5 half-normal saline in the ER at 100 mL an hour. Previous A1c 7.58 5. Hypotension: Possibly related to acute infection and sepsis. Patient receiving IV fluids. We'll hold patient's hydralazine. Parameters have been placed around the metoprolol FOR SBP less than 110 or heart rate less than 55. Hold evening dose of Lasix. Resume Lasix tomorrow morning 6. Sepsis present on admission: Patient had evidence of infection with pneumonia and bilateral lower extremity cellulitis. Leukocytosis and hypotension. Per ER [facility] reported a fever of 102 7. Chronic anemia likely related to renal failure. Check iron studies. Continue to monitor 8. Mildly elevated troponin: Repeat troponin. EKG showing wide QRS a left bundle branch block. Consult cardiology 9. End-stage renal disease on hemodialysis Saturday. Last hemodialysis yesterday. Consult nephrology 10. History of chronic paroxysmal atrial fibrillation not on anticoagulation. On previous admission cardiology discontinue Eliquis due to low hemoglobin 11. Status post kidney transplant in 2011 12. Status post liver transplant 2005 13. History of coronary artery disease with cardiac stents 14. History of chronic systolic congestive heart failure with an EF of 45-50 15. History of non-Hodgkin's lymphoma 16. Hyperlipidemia GI prophylaxis Protonix and DVT prophylaxis subcu heparin I performed an examination of the patient and discussed their management with the Nurse Practitioner. I have reviewed the Nurse Practitioner's notes and agree with the documented findings and plan of care
--- NOTE | 2018-10-01 12:24 | PN ---
PROGRESS NOTE DATE OF SERVICE: 10/01/2018 REASON FOR FOLLOWUP: Possible aspiration pneumonia and lower extremity cellulitis. INTERVAL HISTORY: The patient is currently afebrile. He is more awake and alert. He is breathing comfortably. He did have some cough, not bringing up any sputum. No chest pain. Still complaining of pain to the leg area, but did have some drainage. No diarrhea. PHYSICAL EXAMINATION: On admission, blood pressure 113/76, pulse of 84, temperature 97.6. General description is an elderly male lying in bed in no distress. RESPIRATORY SYSTEM: Unlabored breathing, decreased breath sounds at the base, no wheeze. HEART: S1, S2. Regular rate and rhythm. ABDOMEN: Soft, no tenderness. Legs are currently wrapped up. drainage on the dressing. LABS: Hemoglobin 9, white count 11.5. BUN 41, creatinine 3.11. DIAGNOSTIC IMPRESSION AND PLAN: Patient admitted to the hospital with the patient noted to have fever, elevated white count, right-sided infiltrate concern for possible component of aspiration pneumonia and complaint of lower extremity cellulitis. Ultrasound of the leg has been negative for DVT. Patient currently to continue Zosyn and vancomycin. We will try to obtain sputum antibiotics. Mike wrap to legs to keep the swelling down. Continue supportive care. MMODL / IJN: [id number] /
[2018-10-01] MEDS: ASPIRIN 81 MG PO SCH (16:52)
[2018-10-01] MEDS: MULTIVITAMINS, THERA 1 EACH TAB PO SCH (16:52)
[2018-10-01 17:08] LABS: Glucose,Whole Blood 106 mg/dL (75-99)
[2018-10-01 17:24] LABS: Appearance,Urine Clear (Clear); Bilirubin,Urine Negative (Negative); Blood,Urine Negative (Negative); Color,Urine Yellow; Glucose,Urine (UA) Negative (Negative); Hyaline Casts,Urine 11 /lpf (0-2); Ketones,Urine Negative (Negative); Leukocyte Esterase,Urine Small (Negative); Mucus,Urine Rare /hpf; Nitrite,Urine Negative (Negative); Protein,Urine 1+ (Negative); RBC,Urine 1 /hpf (0-5); Specific Gravity,Urine 1.021 (1.001-1.035); Squamous Epithelial Cell,Urine <1 /hpf (0-4); Urobilinogen,Urine <2.0 mg/dL (<2.0); WBC,Urine 6 /hpf (0-5)
[2018-10-01 20:58] LABS: Glucose,Whole Blood 109 mg/dL (75-99)
[2018-10-01] MEDS: ATORVASTATIN 20 MG TAB PO SCH (21:40)
[2018-10-02] MEDS: SODIUM CHLORIDE 0.9% 1,000 ML IV SCH ×2 (05:03→14:37)
[2018-10-02 06:01] LABS: Glucose,Whole Blood 147 mg/dL (75-99)
[2018-10-02] MEDS: INSULIN ASPART (NovoLOG) 100 UNIT/ML VIAL SQ SCH ×4 (06:41→21:14)
[2018-10-02 07:35] LABS: Albumin 2.6 g/dL (3.5-5.0); Calcium 8.7 mg/dL (8.4-10.2); Potassium 4.9 mmol/L (3.5-5.1); Total Bilirubin 0.8 mg/dL (0.2-1.3); Total Protein 4.8 g/dL (6.3-8.2)
[2018-10-02 07:41] LABS: Vancomycin,Random 7.5 ug/mL
[2018-10-02 08:08] LABS: Anisocytosis Slight; Basophils % (A) 0 %; Eosinophils % (A) 0 %; HCT 33.8 % (39.0-53.0); HGB 9.3 gm/dL (13.0-17.5); Hypochromasia Marked; Lymphocytes # (A) 0.5 k/uL (1.0-4.8); Lymphocytes % (A) 3 %; MCH 23.8 pg (25.0-35.0); MCHC 27.4 g/dL (31.0-37.0); MCV 86.8 fL (80.0-100.0); Mean Platelet Volume 7.6; Monocytes # (A) 0.6 k/uL (0-1.0); Monocytes % (A) 4 %; Neutrophils # (A) 13.6 k/uL (1.3-7.7); Neutrophils % (A) 91 %; Platelet Count 332 k/uL (150-450); RBC 3.89 m/uL (4.30-5.90); RDW 18.5 % (11.5-15.5); WBC 14.9 k/uL (3.8-10.6)
[2018-10-02] MEDS: IPRATROPIUM-ALBUTEROL 3 ML NEB INHALATION SCH ×4 (08:11→21:32)
[2018-10-02] MEDS: PANTOPRAZOLE 40 MG TABLET PO SCH (08:50)
[2018-10-02] MEDS: TACROLIMUS 1 MG CAP PO SCH ×2 (08:50→21:15)
[2018-10-02] MEDS: MYCOPHENOLATE MOFETIL 250 MG CAP PO SCH ×2 (08:50→21:15)
[2018-10-02] MEDS: MAGNESIUM OXIDE 400 MG TAB PO SCH ×2 (08:50→17:55)
[2018-10-02] MEDS: HYDROcodone/APAP 10-325MG 1 EACH TAB PO SCH ×3 (08:51→17:55)
[2018-10-02] MEDS: DOCUSATE 100 MG CAP PO SCH ×2 (08:51→17:55)
[2018-10-02] MEDS: predniSONE 2.5 MG TAB PO SCH (08:51)
[2018-10-02] MEDS: CHOLECALCIFEROL 1,000 UNIT TAB PO SCH (08:51)
[2018-10-02] MEDS: ALLOPURINOL 100 MG TAB PO SCH (08:51)
[2018-10-02] MEDS: METOPROLOL TARTRATE 50 MG TAB PO SCH ×2 (08:51→22:22)
[2018-10-02] MEDS: FUROSEMIDE 80 MG TAB PO SCH ×2 (08:51→17:55)
[2018-10-02] MEDS: PIPERACILLIN-TAZOBACTAM 3.375 GM in SODIUM CHLORIDE 0.9% 100 ML IVPB SCH (08:57)
[2018-10-02] MEDS ORDERED: VANCOMYCIN 1,250 MG in SODIUM CHLORIDE 0.9% 250 ML IVPB ONE (09:00)
--- NOTE | 2018-10-02 10:52 | P.PN ---
Subjective Patient is seen in follow-up for end-stage renal disease. He is maintained on hemodialysis on a Saturday schedule. Tolerated hemodialysis well yesterday with 4 L ultrafiltration. He continues to complain of pain in his lower back and lower extremities. Hemodynamically stable. Vital signs are stable. General: The patient appeared well nourished and normally developed. HEENT: Head exam is unremarkable. Neck is without jugular venous distension. LUNGS: Breath sounds decreased. HEART: Rate and Rhythm are regular. First and second heart sounds normal. No murmurs, rubs or gallops. ABDOMEN: Abdominal exam reveals normal bowel sounds. Non-tender and non- distended. No evidence of peritonitis. EXTREMITITES: Lower extremities wrapped. 1+ edema. Objective - Vital Signs Vital signs: Vital Signs Temp 98 F 10/02/18 04:00 Pulse 84 10/02/18 08:26 Resp 20 10/02/18 07:50 BP 98/60 10/02/18 07:50 Pulse Ox 100 10/02/18 07:50 Intake & Output 10/01/18 10/02/18 10/02/18 18:59 06:59 18:59 Intake Total 1790 240 120 Output Total 200 Balance 1590 240 120 Weight 63.503 kg 59.6 kg Intake: Intake, IV Titration 1150 Amount Piperacillin-Tazobactam 3 100 .375 gm In Sodium Chloride 0.9% 100 ml @ 25 mls/hr IVPB Q8HR [facility] Rx# :[id number] Sodium Chloride 0.9% 1, 800 000 ml @ 100 mls/hr IV . Q10H [facility] Rx#:[id number] Vancomycin 1,250 mg In 250 Sodium Chloride 0.9% 250 ml @ 125 mls/hr IVPB ONCE ONE Rx#:[id number] Oral 640 240 120 Output: Urine 200 Other: Voiding Method Urinal Urinal Urinal # Voids 200 # Bowel Movements 0 - Labs CBC & Chem 7: 10/02/18 05:46 10/02/18 05:46 Labs: Abnormal Lab Results - Last 24 Hours (Table) 09/30/18 10/01/18 10/01/18 Range/Units 16:18 16:56 20:56 WBC (3.8-10.6) k/uL RBC (4.30-5.90) m/uL Hgb (13.0-17.5) gm/dL Hct (39.0-53.0) % MCH (25.0-35.0) pg MCHC (31.0-37.0) g/dL RDW (11.5-15.5) % Neutrophils # (1.3-7.7) k/uL Lymphocytes # (1.0-4.8) k/uL Sodium (137-145) mmol/L Carbon Dioxide (22-30) mmol/L BUN (9-20) mg/dL Creatinine (0.66-1.25) mg/dL POC Glucose (mg/dL) 106 H 109 H (75-99) mg/dL ALT (21-72) U/L Alkaline Phosphatase (38-126) U/L Total Protein (6.3-8.2) g/dL Albumin (3.5-5.0) g/dL Urine Protein 1+ H (Negative) Ur Leukocyte Esterase Small H (Negative) Urine WBC 6 H (0-5) /hpf Hyaline Casts 11 H (0-2) /lpf Urine Mucus Rare H (None) /hpf 10/02/18 10/02/18 10/02/18 Range/Units 05:46 05:46 05:59 WBC 14.9 H (3.8-10.6) k/uL RBC 3.89 L (4.30-5.90) m/uL Hgb 9.3 L (13.0-17.5) gm/dL Hct 33.8 L (39.0-53.0) % MCH 23.8 L (25.0-35.0) pg MCHC 27.4 L (31.0-37.0) g/dL RDW 18.5 H (11.5-15.5) % Neutrophils # 13.6 H (1.3-7.7) k/uL Lymphocytes # 0.5 L (1.0-4.8) k/uL Sodium 135 L (137-145) mmol/L Carbon Dioxide 21 L (22-30) mmol/L BUN 31 H (9-20) mg/dL Creatinine 2.45 H (0.66-1.25) mg/dL POC Glucose (mg/dL) 147 H (75-99) mg/dL ALT 20 L (21-72) U/L Alkaline Phosphatase 173 H (38-126) U/L Total Protein 4.8 L (6.3-8.2) g/dL Albumin 2.6 L (3.5-5.0) g/dL Urine Protein (Negative) Ur Leukocyte Esterase (Negative) Urine WBC (0-5) /hpf Hyaline Casts (0-2) /lpf Urine Mucus (None) /hpf Microbiology - Last 24 Hours (Table) 09/30/18 16:18 Urine Culture - Preliminary Urine,Clean Catch 09/30/18 13:24 Blood Culture - Preliminary Blood No Growth after 24 hours Assessment and Plan Plan: Assessment: 1. End-stage renal disease maintained on hemodialysis on a Saturday schedule. 2. Status post failed renal transplant. 3. History of liver transplant maintained on immunosuppression. 4. Pneumonia maintained on antibiotics. 5. Lower extremity cellulitis. 6. Hyponatremia secondary to chronic kidney disease. Improved post dialysis. 7. Anemia of chronic kidney disease maintained on Aranesp. Plan: Hemodialysis tomorrow.
--- NOTE | 2018-10-02 11:05 | P.PN ---
Subjective Progress Note Date: 10/02/18 This is a 72-year-old male with a known past medical history of congestive heart failure, end-stage renal disease with hemodialysis Saturday, coronary artery disease with cardiac stents, chronic paroxysmal atrial fibrillation, diabetes mellitus type 2, kidney transplant in 2011 and liver tr ansplant in 2005, non-Hodgkin's lymphoma, hyperlipidemia and hypertension. Patient was transferred from [facility] due to fever of 102 and agitation. Patient had been in the ER 3 days ago with a fever dairy could not find a source of infection and patient wanted to be discharged back home. Patient was also hospitalized earlier in September treated for pneumonia and discharged with Augmentin. Patient does have lower extremity cellulitis of both legs legs are swollen painful there are blisters that have broken open on both tibia areas. Patient does have a history of MRSA in the nose. He has been placed on IV vancomycin and cefepime in the ER. Infectious disease has been consulted. Venous Dopplers have been ordered to rule out DVT. Chest x-ray showing evidence of increased density in the right infrahilar region and right suprahilar region which may reflect developing infiltrate. White count elevated 11.8 lactic acid normal at 1.4. Patient also hypoglycemic per family members at bedside reporting that he is not eating well. Blood sugar of 38. Received D5 in the ER. Blood sugar did improve up to 108. Patient did have mildly elevated troponin and repeat troponin ordered EKG showing a wide QRS and left bundle branch block. Cardiology has been consulted. Patient denies chest pain or shortness of breath, nausea vomiting, bowel movement changes. X-ray little urine is on hemodialysis. Patient is confused. On 10/01/2018 patient is alert and oriented resting comfortably in chair about a hemodialysis. At this time patient is complaining of just generalized pain to left side. Patient denies chest pain or shortness of breath. Patient denies nausea vomiting or diarrhea. Cardiology, nephrology infectious disease is following 10/02/2018 patient lying in bed. Complaining of leg pain. Leg dressing was just changed by nursing staff. He is currently on Zosyn and vancomycin for cellulitis and pneumonia. Telemetry monitoring showing possible episodes of at rial fibrillation. EKG has been ordered. Cardiology is following. Patient does have a known history of paroxysmal atrial fibrillation. Heart rate is controlled. Repeat chest x-ray showing possible atelectasis. Patient denies any chest pain or shortness of breath. Patient report has been a few days since his last bowel movement lactulose ordered. White count 14.9. Patient hemodialysis yesterday. Aranesp started by nephrology for his anemia. Objective - Vital Signs Vital signs: Vital Signs Temp 98 F 10/02/18 04:00 Pulse 84 10/02/18 08:26 Resp 20 10/02/18 07:50 BP 98/60 10/02/18 07:50 Pulse Ox 100 10/02/18 07:50 Intake & Output 10/01/18 10/02/18 10/02/18 18:59 06:59 18:59 Intake Total 1790 240 120 Output Total 200 Balance 1590 240 120 Weight 63.503 kg 59.6 kg Intake: Intake, IV Titration 1150 Amount Piperacillin-Tazobactam 3 100 .375 gm In Sodium Chloride 0.9% 100 ml @ 25 mls/hr IVPB Q8HR [facility] Rx# :[id number] Sodium Chloride 0.9% 1, 800 000 ml @ 100 mls/hr IV . Q10H [facility] Rx#:[id number] Vancomycin 1,250 mg In 250 Sodium Chloride 0.9% 250 ml @ 125 mls/hr IVPB ONCE [facility] Rx#:[id number] Oral 640 240 120 Output: Urine 200 Other: Voiding Method Urinal Urinal Urinal # Voids 200 # Bowel Movements 0 - Exam Head normocephalic Neck supple Lungs clear to auscultation bilaterally no wheezing or crackles Heart regular rate and rhythm S1-S2, no rub or gallop Abdomen is soft nontender nondistended positive bowel sounds no hepatosplenomegaly Extremities edema bilateral lower extremities. Legs are Mike wrapped Neuro patient is awake and alert answering questions appropriately - Labs CBC & Chem 7: 10/02/18 05:46 10/02/18 05:46 Labs: Abnormal Lab Results - Last 24 Hours (Table) 09/30/18 10/01/18 10/01/18 Range/Units 16:18 16:56 20:56 WBC (3.8-10.6) k/uL RBC (4.30-5.90) m/uL Hgb (13.0-17.5) gm/dL Hct (39.0-53.0) % MCH (25.0-35.0) pg MCHC (31.0-37.0) g/dL RDW (11.5-15.5) % Neutrophils # (1.3-7.7) k/uL Lymphocytes # (1.0-4.8) k/uL Sodium (137-145) mmol/L Carbon Dioxide (22-30) mmol/L BUN (9-20) mg/dL Creatinine (0.66-1.25) mg/dL POC Glucose (mg/dL) 106 H 109 H (75-99) mg/dL ALT (21-72) U/L Alkaline Phosphatase (38-126) U/L Total Protein (6.3-8.2) g/dL Albumin (3.5-5.0) g/dL Urine Protein 1+ H (Negative) Ur Leukocyte Esterase Small H (Negative) Urine WBC 6 H (0-5) /hpf Hyaline Casts 11 H (0-2) /lpf Urine Mucus Rare H (None) /hpf 10/02/18 10/02/18 10/02/18 Range/Units 05:46 05:46 05:59 WBC 14.9 H (3.8-10.6) k/uL RBC 3.89 L (4.30-5.90) m/uL Hgb 9.3 L (13.0-17.5) gm/dL Hct 33.8 L (39.0-53.0) % MCH 23.8 L (25.0-35.0) pg MCHC 27.4 L (31.0-37.0) g/dL RDW 18.5 H (11.5-15.5) % Neutrophils # 13.6 H (1.3-7.7) k/uL Lymphocytes # 0.5 L (1.0-4.8) k/uL Sodium 135 L (137-145) mmol/L Carbon Dioxide 21 L (22-30) mmol/L BUN 31 H (9-20) mg/dL Creatinine 2.45 H (0.66-1.25) mg/dL POC Glucose (mg/dL) 147 H (75-99) mg/dL ALT 20 L (21-72) U/L Alkaline Phosphatase 173 H (38-126) U/L Total Protein 4.8 L (6.3-8.2) g/dL Albumin 2.6 L (3.5-5.0) g/dL Urine Protein (Negative) Ur Leukocyte Esterase (Negative) Urine WBC (0-5) /hpf Hyaline Casts (0-2) /lpf Urine Mucus (None) /hpf Microbiology - Last 24 Hours (Table) 09/30/18 16:18 Urine Culture - Preliminary Urine,Clean Catch 09/30/18 13:24 Blood Culture - Preliminary Blood No Growth after 24 hours Assessment and Plan Assessment: 1. Fever and altered mental status: Likely due to metabolic encephalopathy due to bilateral lower extremity cellulitis and possible pneumonia. 2. Bilateral lower extremity cellulitis and blisters and edema: Patient seen by infectious disease. Patient currently on Zosyn and vancomycin. Venous Doppler negative for DVT bilaterally 3. Healthcare associated pneumonia: Continue antibiotics. Infectious disease following 4. Diabetes mellitus type 2 with episodes of hypoglycemia due to poor oral intake. Patient has been given an amp of D50. Hold patient's insulin. Add sliding scale coverage with Accu-Cheks every before meals and at bedtime. Previous A1c 7.58 5. Hypotension: Possibly related to acute infection and sepsis. Patient receiving IV fluids. We'll hold patient's hydralazine. Parameters have been placed around the metoprolol FOR SBP less than 110 or heart rate less than 55. 6. Sepsis present on admission: Patient had evidence of infection with pneumonia and bilateral lower extremity cellulitis. Leukocytosis and hypotension. Per ER long-term reported a fever of 102 7. Anemia of chronic disease secondary to renal failure. Nephrology is placed patient on Aranesp. Also will start ferrous sulfate for iron deficiency anemia 8. Mildly elevated troponin: Patient seen evaluated by cardiology. Elevated troponin likely secondary to sepsis not acute coronary syndrome 9. End-stage renal disease on hemodialysis Saturday. Followed b y nephrology 10. History of chronic paroxysmal atrial fibrillation not on anticoagulation. On previous admission cardiology discontinue Eliquis due to low hemoglobin 11. Status post failed kidney transplant in 2011 12. Status post liver transplant 2005. Continue immunosuppression medications 13. History of coronary artery disease with cardiac stents 14. History of chronic systolic congestive heart failure with an EF of 45-50 15. History of non-Hodgkin's lymphoma 16. Hyperlipidemia 17. Hyponatremia secondary to chronic kidney disease improved postdialysis GI prophylaxis Protonix and DVT prophylaxis subcu heparin I performed an examination of the patient and discussed their management with the physician Drug Safety Coordinator. I have reviewed the Physician Drug Safety Coordinator's notes and agree with the documented findings and plan of care
[2018-10-02] MEDS ORDERED: LACTULOSE 20 GM/30 ML CUP PO ONE (11:15)
[2018-10-02 11:33] LABS: Glucose,Whole Blood 127 mg/dL (75-99)
[2018-10-02] MEDS: HYDROmorphone 0.5 MG/0.5 ML SYRINGE IVP PRN (11:53)
[2018-10-02] MEDS: HEPARIN SODIUM,PORCINE 5,000 UNIT/ML 1 ML VIAL SQ SCH ×2 (11:53→21:14)
--- NOTE | 2018-10-02 12:08 | P.PN ---
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 Patient has been on hemodialysis since. He had a recent hospitalization earlier this month with pneumonia, he also has non-Hodgkin's lymphoma, hypertension, hyperlipidemia, MRSA, he came to the emergency room 3 days ago with fever, and wanted to be discharged back home. Patient also has extreme cellulitis of bilateral lower extremities with open areas bilaterally, dressings are in place. Because of elevated fever he again was admitted to the hospital on this occasion. Chest x- ray on admission revealed suggestion of increased density in the right i nfrahilar region and right suprahilar region which may reflect a developing infiltrate. EKG shows a normal sinus rhythm with a left bundle-branch block pattern and nonspecific ST-T wave changes. Venous duplex study did not reveal evidence for DVT in the bilateral lower extremities. Repeat chest x-ray showed improved aeration of the right lung base in comparison with prior. Blood pressure 120/70 with a heart rate in the 80s, 99% on room air. White blood cell count 11.5, hemoglobin 9.0, platelet count 349. Sodium 132, potassium 5.1, BUN 41 and creatinine 3.1. Glucose level 38 on admission, iron 5 TIBC 163 and iron saturation 3.07, ferritin 1423 total bilirubin 0.7 AST 13 ALT 15 alk phos 150 BNP level 87,600. Troponins 0.08, 0.074. 10/02/2018 Patient seen and examined this morning, complaining of a lot of pain in his left lower extremity from his Mike wraps. Blood pressure 98/60 with a heart rate in the 80s, 100% on room air. White blood cell count 14.9, hemoglobin 9.3, platele t count 332. Sodium 135, potassium 4.9, BUN 31 and creatinine 2.4. Objective - Vital Signs Vital signs: Vital Signs Temp 98 F 10/02/18 04:00 Pulse 84 10/02/18 08:26 Resp 20 10/02/18 07:50 BP 98/60 10/02/18 07:50 Pulse Ox 100 10/02/18 07:50 Intake & Output 10/01/18 10/02/18 10/02/18 18:59 06:59 18:59 Intake Total 1790 240 120 Output Total 200 Balance 1590 240 120 Weight 63.503 kg 59.6 kg Intake: Intake, IV Titration 1150 Amount Piperacillin-Tazobactam 3 100 .375 gm In Sodium Chloride 0.9% 100 ml @ 25 mls/hr IVPB Q8HR [facility] Rx# :[id number] Sodium Chloride 0.9% 1, 800 000 ml @ 100 mls/hr IV . Q10H [facility] Rx#:[id number] Vancomycin 1,250 mg In 250 Sodium Chloride 0.9% 250 ml @ 125 mls/hr IVPB ONCE ONE Rx#:[id number] Oral 640 240 120 Output: Urine 200 Other: Voiding Method Urinal Urinal Urinal # Voids 200 # Bowel Movements 0 - Exam PHYSICAL EXAMINATION: GENERAL: 72-year-old gentleman in no acute distress at the time of my examination HEENT: Head is atraumatic, normocephalic. Pupils equal, round. Sclera anicteric. Conjunctiva are clear. Mucous membranes of the mouth are moist. Neck is supple. There is elevated jugular venous pressure. No carotid bruit is heard. HEART EXAMINATION: Heart S1-S2 systolic murmur is heard. CHEST EXAMINATION: Lungs reveal mild basilar crackles ABDOMEN: Soft, nontender. Bowel sounds are heard. No organomegaly noted. EXTREMITIES: 1+ peripheral pulses with 2-3+ pitting edema, significant bilateral lower extremity cellulitis, dressings in place.. NEUROLOGIC patient is awake, alert and oriented 1 . - Labs CBC & Chem 7: 10/02/18 05:46 10/02/18 05:46 Labs: Abnormal Lab Results - Last 24 Hours (Table) 09/30/18 10/01/18 10/01/18 Range/Units 16:18 16:56 20:56 WBC (3.8-10.6) k/uL RBC (4.30-5.90) m/uL Hgb (13.0-17.5) gm/dL Hct (39.0-53.0) % MCH (25.0-35.0) pg MCHC (31.0-37.0) g/dL RDW (11.5-15.5) % Neutrophils # (1.3-7.7) k/uL Lymphocytes # (1.0-4.8) k/uL Sodium (137-145) mmol/L Carbon Dioxide (22-30) mmol/L BUN (9-20) mg/dL Creatinine (0.66-1.25) mg/dL POC Glucose (mg/dL) 106 H 109 H (75-99) mg/dL ALT (21-72) U/L Alkaline Phosphatase (38-126) U/L Total Protein (6.3-8.2) g/dL Albumin (3.5-5.0) g/dL Urine Protein 1+ H (Negative) Ur Leukocyte Esterase Small H (Negative) Urine WBC 6 H (0-5) /hpf Hyaline Casts 11 H (0-2) /lpf Urine Mucus Rare H (None) /hpf 10/02/18 10/02/18 10/02/18 Range/Units 05:46 05:46 05:59 WBC 14.9 H (3.8-10.6) k/uL RBC 3.89 L (4.30-5.90) m/uL Hgb 9.3 L (13.0-17.5) gm/dL Hct 33.8 L (39.0-53.0) % MCH 23.8 L (25.0-35.0) pg MCHC 27.4 L (31.0-37.0) g/dL RDW 18.5 H (11.5-15.5) % Neutrophils # 13.6 H (1.3-7.7) k/uL Lymphocytes # 0.5 L (1.0-4.8) k/uL Sodium 135 L (137-145) mmol/L Carbon Dioxide 21 L (22-30) mmol/L BUN 31 H (9-20) mg/dL Creatinine 2.45 H (0.66-1.25) mg/dL POC Glucose (mg/dL) 147 H (75-99) mg/dL ALT 20 L (21-72) U/L Alkaline Phosphatase 173 H (38-126) U/L Total Protein 4.8 L (6.3-8.2) g/dL Albumin 2.6 L (3.5-5.0) g/dL Urine Protein (Negative) Ur Leukocyte Esterase (Negative) Urine WBC (0-5) /hpf Hyaline Casts (0-2) /lpf Urine Mucus (None) /hpf 10/02/18 Range/Units 11:27 WBC (3.8-10.6) k/uL RBC (4.30-5.90) m/uL Hgb (13.0-17.5) gm/dL Hct (39.0-53.0) % MCH (25.0-35.0) pg MCHC (31.0-37.0) g/dL RDW (11.5-15.5) % Neutrophils # (1.3-7.7) k/uL Lymphocytes # (1.0-4.8) k/uL Sodium (137-145) mmol/L Carbon Dioxide (22-30) mmol/L BUN (9-20) mg/dL Creatinine (0.66-1.25) mg/dL POC Glucose (mg/dL) 127 H (75-99) mg/dL ALT (21-72) U/L Alkaline Phosphatase (38-126) U/L Total Protein (6.3-8.2) g/dL Albumin (3.5-5.0) g/dL Urine Protein (Negative) Ur Leukocyte Esterase (Negative) Urine WBC (0-5) /hpf Hyaline Casts (0-2) /lpf Urine Mucus (None) /hpf Microbiology - Last 24 Hours (Table) 09/30/18 16:18 Urine Culture - Preliminary Urine,Clean Catch 09/30/18 13:24 Blood Culture - Preliminary Blood No Growth after 24 hours Assessment and Plan Plan: Assessment and plan 1. Fever and altered mental status: Likely due to metabolic encephalopathy. 2. Bilateral lower extremity cellulitis ,blisters and edema: On cefepime and vancomycin. 3. Healthcare associated pneumonia 4. Diabetes mellitus type 2 with episodes of hypoglycemia 5. Hypotension: Likely related to acute infection and sepsis. Patient receiving IV fluids. 6. Sepsis 7. Chronic anemia likely related to renal failure. 8. Mildly elevated troponin not consistent with acute coronary syndrome, likely secondary to sepsis 9. End-stage renal disease on hemodialysis Saturday. Last hemodialysis yesterday. 10. History of chronic paroxysmal atrial fibrillation not on anticoagulation. Eliquis discontinued on recent admission because of anemia 11. Status post kidney transplant in 2011 12. Status post liver transplant 2005 13. History of coronary artery disease with cardiac stents 14. History of chronic systolic congestive heart failure with an EF of 45-50 15. History of non-Hodgkin's lymphoma 16. Hyperlipidemia Plan The patient had an echo cardiac gram with Doppler study performed in July of this year which revealed an ejection fraction of 45-50%. LA was severely dilated, severe mitral regurgitation, moderate pulmonary hypertension moderate pulmonary and small pericardial effusion noted at that time. His abnormality in troponin is not consistent with acute coronary syndrome in his likely secondary to sepsis. On review of all prior admissions patient is noted to have abnormal troponins. Continue current medications. We will follow along now on an as- needed basis only, please don't hesitate to call with any questions. DNP note has been reviewed, I agree with a documented findings and plan of care. Patient was seen and examined.
[2018-10-02] MEDS ORDERED: PIPERACILLIN-TAZOBACTAM 3.375 GM in SODIUM CHLORIDE 0.9% 100 ML IVPB SCH (16:00)
--- NOTE | 2018-10-02 16:02 | P.CNPUL ---
History of Present Illness Consult date: 10/02/18 Requesting physician: Jayla Mahmood Reason for consult: pneumonia (Abnormal chest x-ray) Chief complaint: Fever, and worsening wounds on the lower extremities. History of present illness: This is a 72-year-old white male, known history of end-stage renal disease, on hemodialysis, history of chronic wounds on lower extremities, he was sent to the ER on 09/30/2018 from extended care facility for increasing agitation, fever of 102, and significant amount of aches and pains in lower extremities. Chest x- ray upon presentation showed mostly atelectasis at the right lower lobe, follow- up chest x-ray within one day showed significant improvement in the atelectasis. Patient had no pulmonary symptoms whatsoever. Clearly he had no symptoms to suggest pneumonia. No cough, no chest pain, and no shortness of breath. Patient is known to have history of chronic systolic heart failure, ejection fr action of 45%, and he has history of chronic renal failure maintained on hemodialysis. When I saw the patient today on consultation, I reviewed the chest x-ray, and showed basically no evidence of infiltrate. And his clinical history clearly did not point to active pneumonia. In the meantime the patient is receiving antibiotics for his lower extremities once, and that being addressed by infectious disease on the case Review of Systems Constitutional: Fever, aches and pains, mostly in lower extremities and skin of both lower extremities. HEENT:Denies headache or acute visual change. Denies mouth discomforts. Denies neck stiffness or pain. Lungs: Denies shortness of breath, cough, sputum production, or hemoptysis. Cardiovascular: Denies significant shortness of breath, chest pain, chest wall pain, orthopnea, dyspnea on exertion, syncope Gastrointestinal:Denies nausea, vomiting, diarrhea, constipation, melena or hematemesis Musculoskeletal: Complains of significant aches and pains in both lower extremities. Skin: Significant ulceration of lower extremities left more so than right specially above the ankle. There is also some exfoliation of the skin. Neuro: Denies headache or visual change. Denies any new onset weakness or difficulty with ambulation. Denies falls or seizures. Psychiatric:Denies anxiety or depression. Endocrine: Denies significant fatigue, denies significant weight loss or weight gain. Past Medical History Past Medical History: Asthma, Cancer, Heart Failure, COPD, Diabetes Mellitus, GERD/Reflux, Hyperlipidemia, Hypertension, Osteoarthritis (OA), Pneumonia, Renal Disease, Seizure Disorder Additional Past Medical History / Comment(s): 06/13/15 Pt presented to [facility] ER with SOB. He is admitted with clinical impression of CHF exacerbation, dyspnea and hyperglycemia, renal failure. 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 dialysis m/w/f History of Any Multi-Drug Resistant Organisms: MRSA Date of last positivie culture/infection: 12/26/16 MDRO Source:: NASAL Past Surgical History: Heart Catheterization, Heart Catheterization With Stent Additional Past Surgical History / Comment(s): liver transplant 2005 d/t non alcoholic steatohepatits d/t fatty liver, colonoscopy, insertion lt arm fistula(in past had hemodialysis)-kidney implant 2011, lt shoulder sx has pin in place, rt wrist sx with pins, cataract removal and lens implants bilaterally 201 4. Past Anesthesia/Blood Transfusion Reactions: No Reported Reaction Date of Last Stent Placement:: 2007 Smoking Status: Former smoker - Past Family History Father Family Medical History: No Reported History, Cancer, Hypertension Additional Family Medical History / Comment(s): Father in his 80's. Mother Family Medical History: Diabetes Mellitus, Hypertension Additional Family Medical History / Comment(s): Mother in her 80's. Medications and Allergies Home Medications Medication Instructions Recorded Confirmed Type Atorvastatin [Lipitor] 20 mg PO HS@2100 08/18/14 09/30/18 History Tacrolimus [Prograf] 3 mg PO QAM 08/18/14 09/30/18 History Allopurinol [Zyloprim] 100 mg PO DAILY@0800 10/10/16 09/30/18 History Tacrolimus [Prograf] 4 mg PO HS 11/26/16 09/30/18 History hydrALAZINE HCL [Apresoline] 25 mg PO TID #90 tab 11/29/16 09/30/18 Rx Metoprolol Tartrate [Lopressor] 50 mg PO HS@209912/25/16 09/30/18 History Cholecalciferol (Vitamin D3) 2,000 unit PO DAILY@0800 08/05/18 09/30/18 History [Vitamin D3] Furosemide [Lasix] 80 mg PO BID 08/05/18 09/30/18 History Magnesium Oxide [Mag-Ox] 400 mg PO BID@0800,1700 08/05/18 09/30/18 History Multivitamins, Thera [Multivitamin 1 tab PO DAILY@1700 08/05/18 09/30/18 History (formulary)] Mycophenolate Mofetil [Cellcept] 500 mg PO BID@0800,2100 08/05/18 09/30/18 History predniSONE 2.5 mg PO DAILY@0800 08/05/18 09/30/18 History Aspirin 81 mg PO DAILY@1700 09/01/18 09/30/18 History Bisacodyl [Dulcolax] 10 mg RECTAL DAILY PRN 09/01/18 09/30/18 History Docusate [Colace] 100 mg PO BID@0800,1700 09/01/18 09/30/18 History INSULIN ASPART (NovoLOG) [NovoLOG See Protocol SQ ACHS 09/01/18 09/30/18 History (formulary)] Metoprolol Tartrate [Lopressor] 100 mg PO DAILY@0800 09/01/18 09/30/18 History Nepro 1 can PO BID-W/MEALS 09/01/18 09/30/18 History Pantoprazole [Protonix] 40 mg PO DAILY@0800 09/01/18 09/30/18 History Ipratropium-Albuterol Nebulize 3 ml INHALATION RT-QID ampul.neb 09/05/18 09/30/18 Rx [Duoneb 0.5 mg-3 mg/3 ml Soln] Acetaminophen [Tylenol] 650 mg PO Q4H PRN 09/30/18 09/30/18 History HYDROcodone/APAP 10-325MG [Pengilly 1 tab PO QID 09/30/18 09/30/18 History 10-325] Insulin Glargine [Lantus] 10 unit SQ HS@209909/30/18 09/30/18 History Allergies Allergy/AdvReac Type Severity Reaction Status Date / Time heaton Allergy Unknown Verified 09/30/18 13:46 codeine Allergy Rash/Hives Verified 09/30/18 13:46 erythromycin base Allergy Swelling Verified 09/30/18 13:46 Physical Exam Vitals: Vital Signs Temp Pulse Pulse Resp BP Pulse Ox 10/02/18 13:01 86 18 10/02/18 12:51 88 18 10/02/18 12:00 97.4 F L 80 20 102/49 100 10/02/18 08:26 84 10/02/18 08:17 80 10/02/18 07:50 91 20 98/60 100 10/02/18 04:00 98 F 88 18 101/72 97 10/02/18 00:00 85 18 100/69 98 10/01/18 20:19 84 10/01/18 20:09 83 99 10/01/18 20:00 97.2 F L 83 18 93/75 99 10/01/18 16:45 78 10/01/18 16:32 80 98 10/01/18 16:00 96.5 F L 90 16 144/60 Intake and Output 10/02/18 10/02/18 10/02/18 06:59 14:59 22:59 Intake Total 240 120 Balance 240 120 Intake: Oral 240 120 Other: Voiding Method Urinal Urinal # Voids 0 Weight 59.6 kg Physical Exam: Revealed a 72-year-old white male in no distress. Head:, Atraumatic, normocephalic. HEENT:[Neck is supple.] [No neck masses.] [No thyromegaly.] [No JVD.] PERRLA, EOMI, no icterus. Chest: [Clear throughout, no crackles, no rhonchi, no wheezes.] Cardiac Exam: [Normal S1 and S2, no S3 gallop, no murmur.] Abdomen: [Soft, nontender, no megaly, no rebound, no guarding, normal bowel sounds.] Extremities: There is evidence of 2+ pitting edema of both lower extremities, bilateral areas of cellulitis noted mostly in the left lower extremity above the ankle and the calf region. Blistering and exfoliation of the skin is noted there is also some yellow drainage noted and blacked blistering noted on the left foot medially. Extremely tender legs to palpation. Diminished distal pulses. Neurological Exam: [No focal neurologic deficit.] Alert and oriented 3. Psychiatric: Depressed mood, mostly in pain, blunt affect, normal mental status examination. Lymphatics: No lymphadenopathy. Results - Laboratory Findings CBC and BMP: 10/02/18 05:46 10/02/18 05:46 PT/INR, D-dimer PT 11.1 sec (9.0-12.0) 09/30/18 13:24 INR 1.0 (<1.2) 09/30/18 13:24 Abnormal lab findings: Abnormal Labs 09/30/18 09/30/18 09/30/18 13:24 13:24 13:24 WBC 11.8 H RBC 3.63 L Hgb 9.3 L Hct 31.0 L MCH MCHC 29.9 L RDW 18.1 H Neutrophils # 10.4 H Lymphocytes # 0.6 L Sodium 134 L Chloride 95 L Carbon Dioxide BUN 38 H Creatinine 2.70 H Glucose 38 L* POC Glucose (mg/dL) Iron TIBC Iron Saturation Ferritin AST 13 L ALT 15 L Alkaline Phosphatase 150 H Troponin I 0.082 H* Total Protein 5.0 L Albumin 2.8 L Urine Protein Ur Leukocyte Esterase Urine WBC Hyaline Casts Urine Mucus 09/30/18 09/30/18 09/30/18 14:16 15:21 15:52 WBC RBC Hgb Hct MCH MCHC RDW Neutrophils # Lymphocytes # Sodium Chloride Carbon Dioxide BUN Creatinine Glucose POC Glucose (mg/dL) 108 H 42 L 103 H Iron TIBC Iron Saturation Ferritin AST ALT Alkaline Phosphatase Troponin I Total Protein Albumin Urine Protein Ur Leukocyte Esterase Urine WBC Hyaline Casts Urine Mucus 09/30/18 09/30/18 09/30/18 16:18 17:27 17:47 WBC RBC Hgb Hct MCH MCHC RDW Neutrophils # Lymphocytes # Sodium Chloride Carbon Dioxide BUN Creatinine Glucose POC Glucose (mg/dL) 66 L 62 L Iron TIBC Iron Saturation Ferritin AST ALT Alkaline Phosphatase Troponin I Total Protein Albumin Urine Protein 1+ H Ur Leukocyte Esterase Small H Urine WBC 6 H Hyaline Casts 11 H Urine Mucus Rare H 09/30/18 09/30/18 09/30/18 18:06 18:22 19:36 WBC RBC Hgb Hct MCH MCHC RDW Neutrophils # Lymphocytes # Sodium Chloride Carbon Dioxide BUN Creatinine Glucose POC Glucose (mg/dL) 63 L 62 L Iron 5 L TIBC 163 L Iron Saturation 3.07 L Ferritin 1423.5 H AST ALT Alkaline Phosphatase Troponin I Total Protein Albumin Urine Protein Ur Leukocyte Esterase Urine WBC Hyaline Casts Urine Mucus 09/30/18 09/30/18 09/30/18 19:36 19:52 20:11 WBC RBC Hgb Hct MCH MCHC RDW Neutrophils # Lymphocytes # Sodium Chloride Carbon Dioxide BUN Creatinine Glucose POC Glucose (mg/dL) 68 L 65 L Iron TIBC Iron Saturation Ferritin AST ALT Alkaline Phosphatase Troponin I 0.074 H* Total Protein Albumin Urine Protein Ur Leukocyte Esterase Urine WBC Hyaline Casts Urine Mucus 09/30/18 10/01/18 10/01/18 20:32 05:42 05:42 WBC 11.5 H RBC 3.64 L Hgb 9.0 L Hct 31.9 L MCH 24.7 L MCHC 28.3 L RDW 18.0 H Neutrophils # 9.9 H Lymphocytes # 0.7 L Sodium 132 L Chloride 95 L Carbon Dioxide BUN 41 H Creatinine 3.11 H Glucose POC Glucose (mg/dL) 100 H Iron TIBC Iron Saturation Ferritin AST 13 L ALT Alkaline Phosphatase 154 H Troponin I Total Protein 4.9 L Albumin 2.6 L Urine Protein Ur Leukocyte Esterase Urine WBC Hyaline Casts Urine Mucus 10/01/18 10/01/18 10/02/18 16:56 20:56 05:46 WBC RBC Hgb Hct MCH MCHC RDW Neutrophils # Lymphocytes # Sodium 135 L Chloride Carbon Dioxide 21 L BUN 31 H Creatinine 2.45 H Glucose POC Glucose (mg/dL) 106 H 109 H Iron TIBC Iron Saturation Ferritin AST ALT 20 L Alkaline Phosphatase 173 H Troponin I Total Protein 4.8 L Albumin 2.6 L Urine Protein Ur Leukocyte Esterase Urine WBC Hyaline Casts Urine Mucus 10/02/18 10/02/18 10/02/18 05:46 05:59 11:27 WBC 14.9 H RBC 3.89 L Hgb 9.3 L Hct 33.8 L MCH 23.8 L MCHC 27.4 L RDW 18.5 H Neutrophils # 13.6 H Lymphocytes # 0.5 L Sodium Chloride Carbon Dioxide BUN Creatinine Glucose POC Glucose (mg/dL) 147 H 127 H Iron TIBC Iron Saturation Ferritin AST ALT Alkaline Phosphatase Troponin I Total Protein Albumin Urine Protein Ur Leukocyte Esterase Urine WBC Hyaline Casts Urine Mucus - Diagnostic Findings Chest x-ray: image reviewed (No evidence of pneumonia, there is mostly slight atelectasis improved compared to chest x-ray done on admission.) Assessment and Plan Assessment: Impression: 1 no evidence of pneumonia based on the chest x-ray findings and based on the clinical history. 2 severe cellulitis of lower extremities, being addressed by infectious disease on the case. 3 chronic end-stage renal disease, on hemodialysis. 4 fever secondary to cellulitis 5 type 2 diabetes. 6 sepsis secondary to cellulitis, again no evidence of pneumonia. 7 anemia of chronic disease 8 history of kidney transplant in 2011. 9 paroxysmal atrial fibrillation 10 history of coronary artery disease and cardiac stents 11 chronic systolic congestive heart failure 12 history of non-Hodgkin's lymphoma presently in remission 13 hyperlipidemia 14 severe lower extremities pain secondary to cellulitis. Recommendation: I fully agree with the present treatment plan, no active pulmonary issues to be addressed at this point, chest x-ray was reviewed and discussed with the patient. His medications were all reviewed, discussed his condition with the infectious disease specialist on the case, we will follow the patient on when necessary basis. Time with Patient: Greater than 30
[2018-10-02 16:41] LABS: Glucose,Whole Blood 138 mg/dL (75-99)
[2018-10-02] MEDS: ASPIRIN 81 MG PO SCH (17:55)
[2018-10-02] MEDS: MULTIVITAMINS, THERA 1 EACH TAB PO SCH (17:55)
[2018-10-02 20:45] LABS: Glucose,Whole Blood 148 mg/dL (75-99)
[2018-10-02] MEDS: ATORVASTATIN 20 MG TAB PO SCH (21:15)
[2018-10-02] MEDS: FERROUS SULFATE 325 MG TAB PO SCH (21:15)
--- NOTE | 2018-10-02 22:49 | PN ---
PROGRESS NOTE DATE OF SERVICE: 10/02/2018. REASON FOR FOLLOWUP VISIT: Lower extremity wound cellulitis. INTERVAL HISTORY: The patient is currently afebrile. He seems to be breathing more comfortably, denies having any chest pain, minimal cough. No abdominal pain. Still has swelling in the legs with wound and drainage. On examination, blood pressure is 106/51 with a pulse of 90, temperature is 97, he is 99% on room air. General description is an elderly male lying in bed in no distress. Respiratory system: Unlabored breathing with decreased breath sounds in the bases. No wheeze. Heart S1, S2. Regular rate and rhythm. Abdomen is soft, no tenderness. Legs with significant swelling, has some superficial wound, erythema and slight drainage. LABS: Hemoglobin 9.1, white count 14.9. BUN of 31, creatinine is 2.45. Blood culture has been negative. DIAGNOSTIC IMPRESSION AND PLAN: 1. Patient with admitted to the hospital with fever and mental status changes. Initial concern was possible pneumonia on the basis of chest x-ray report. However, x-rays were reviewed with pulmonology, Dr. Delaney with rather quick resolution of infiltrate on the chest x-ray more likely pointing towards a fluid overload in a patient with dialysis and improvement in the x-ray finding of hemodialysis. Clinically doubt pneumonia. Zosyn will be discontinued. 2. The patient with bilateral lower extremity wound with secondary cellulitis. Continue local wound care, has been switched to Aquacel Silver to be applied dry followed by mild compression dressing and vancomycin pharmacy to dose while monitoring his clinical course closely. Continue supportive care. MMODL / IJN: [id number] /
[2018-10-03] MEDS: SODIUM CHLORIDE 0.9% 1,000 ML IV SCH ×2 (00:43→12:28)
[2018-10-03] MEDS: HYDROcodone/APAP 10-325MG 1 EACH TAB PO SCH ×5 (00:43→20:36)
[2018-10-03 05:59] LABS: Glucose,Whole Blood 216 mg/dL (75-99)
[2018-10-03] MEDS: INSULIN ASPART (NovoLOG) 100 UNIT/ML VIAL SQ SCH ×4 (06:04→22:10)
[2018-10-03] MEDS: HYDROmorphone 0.5 MG/0.5 ML SYRINGE IVP PRN ×2 (06:09→15:45)
[2018-10-03 06:46] LABS: Anisocytosis Slight; Basophils % (A) 0 %; Eosinophils # (A) 0.1 k/uL (0-0.7); Eosinophils % (A) 1 %; HCT 30.7 % (39.0-53.0); HGB 8.8 gm/dL (13.0-17.5); Hypochromasia Marked; Lymphocytes # (A) 0.5 k/uL (1.0-4.8); Lymphocytes % (A) 4 %; MCH 25.3 pg (25.0-35.0); MCHC 28.5 g/dL (31.0-37.0); MCV 88.8 fL (80.0-100.0); Mean Platelet Volume 7.4; Monocytes # (A) 0.5 k/uL (0-1.0); Monocytes % (A) 4 %; Neutrophils # (A) 10.7 k/uL (1.3-7.7); Neutrophils % (A) 90 %; Platelet Count 284 k/uL (150-450); RBC 3.46 m/uL (4.30-5.90); RDW 17.8 % (11.5-15.5); WBC 11.9 k/uL (3.8-10.6)
[2018-10-03 06:53] LABS: Albumin 2.4 g/dL (3.5-5.0); Calcium 8.7 mg/dL (8.4-10.2); Potassium 4.4 mmol/L (3.5-5.1); Total Bilirubin 0.5 mg/dL (0.2-1.3); Total Protein 4.4 g/dL (6.3-8.2)
[2018-10-03] MEDS ORDERED: MIDODRINE 5 MG TAB PO ONE (10:17)
[2018-10-03] MEDS: CHOLECALCIFEROL 1,000 UNIT TAB PO SCH (10:18)
[2018-10-03] MEDS: MULTIVITAMINS, THERA 1 EACH TAB PO SCH (10:18)
[2018-10-03] MEDS: FERROUS SULFATE 325 MG TAB PO SCH ×2 (10:18→20:35)
[2018-10-03] MEDS: DOCUSATE 100 MG CAP PO SCH ×2 (10:18→16:33)
[2018-10-03] MEDS: ALLOPURINOL 100 MG TAB PO SCH (10:18)
[2018-10-03] MEDS: MYCOPHENOLATE MOFETIL 250 MG CAP PO SCH ×2 (10:19→22:10)
[2018-10-03] MEDS: MAGNESIUM OXIDE 400 MG TAB PO SCH ×2 (10:19→16:32)
[2018-10-03] MEDS: HEPARIN SODIUM,PORCINE 5,000 UNIT/ML 1 ML VIAL SQ SCH ×2 (10:19→20:35)
[2018-10-03] MEDS: PANTOPRAZOLE 40 MG TABLET PO SCH (10:19)
[2018-10-03] MEDS: TACROLIMUS 1 MG CAP PO SCH ×2 (10:20→22:09)
[2018-10-03] MEDS: predniSONE 2.5 MG TAB PO SCH (10:21)
[2018-10-03] MEDS: IPRATROPIUM-ALBUTEROL 3 ML NEB INHALATION SCH ×4 (10:28→23:18)
[2018-10-03] MEDS ORDERED: VANCOMYCIN 1,250 MG in SODIUM CHLORIDE 0.9% 250 ML IVPB ONE (10:30)
--- NOTE | 2018-10-03 11:41 | P.PN ---
Subjective Patient is seen in follow-up for end-stage renal disease. He is maintained on hemodialysis on a Saturday schedule. Currently seen while undergoing hemodialysis. He continues to complain of pain in his lower back and lower extremities. Hemodynamically stable. Vital signs are stable. General: The patient appeared well nourished and normally developed. HEENT: Head exam is unremarkable. Neck is without jugular venous distension. LUNGS: Breath sounds decreased. HEART: Rate and Rhythm are regular. First and second heart sounds normal. No murmurs, rubs or gallops. ABDOMEN: Abdominal exam reveals normal bowel sounds. Non-tender and non- distended. No evidence of peritonitis. EXTREMITITES: Lower extremities wrapped. 1+ edema. Objective - Vital Signs Vital signs: Vital Signs Temp 98.0 F 10/03/18 07:40 Pulse 82 10/03/18 07:40 Resp 18 10/03/18 07:40 BP 132/47 10/03/18 07:40 Pulse Ox 99 10/03/18 07:40 Intake & Output 10/02/18 10/03/18 10/03/18 18:59 06:59 18:59 Intake Total 120 260 120 Output Total 500 Balance 120 260 -380 Weight 61.9 kg Intake: Oral 120 260 120 Output: Urine 500 Other: Voiding Method Urinal Urinal # Voids 1 0 - Labs CBC & Chem 7: 10/03/18 06:02 10/03/18 06:02 Labs: Abnormal Lab Results - Last 24 Hours (Table) 10/02/18 10/02/18 10/03/18 Range/Units 16:35 20:43 05:57 WBC (3.8-10.6) k/uL RBC (4.30-5.90) m/uL Hgb (13.0-17.5) gm/dL Hct (39.0-53.0) % MCHC (31.0-37.0) g/dL RDW (11.5-15.5) % Neutrophils # (1.3-7.7) k/uL Lymphocytes # (1.0-4.8) k/uL Sodium (137-145) mmol/L Carbon Dioxide (22-30) mmol/L BUN (9-20) mg/dL Creatinine (0.66-1.25) mg/dL Glucose (74-99) mg/dL POC Glucose (mg/dL) 138 H 148 H 216 H (75-99) mg/dL AST (17-59) U/L ALT (21-72) U/L Alkaline Phosphatase (38-126) U/L Total Protein (6.3-8.2) g/dL Albumin (3.5-5.0) g/dL 10/03/18 10/03/18 Range/Units 06:02 06:02 WBC 11.9 H (3.8-10.6) k/uL RBC 3.46 L (4.30-5.90) m/uL Hgb 8.8 L (13.0-17.5) gm/dL Hct 30.7 L (39.0-53.0) % MCHC 28.5 L (31.0-37.0) g/dL RDW 17.8 H (11.5-15.5) % Neutrophils # 10.7 H (1.3-7.7) k/uL Lymphocytes # 0.5 L (1.0-4.8) k/uL Sodium 136 L (137-145) mmol/L Carbon Dioxide 19 L (22-30) mmol/L BUN 39 H (9-20) mg/dL Creatinine 3.20 H (0.66-1.25) mg/dL Glucose 210 H (74-99) mg/dL POC Glucose (mg/dL) (75-99) mg/dL AST 13 L (17-59) U/L ALT 10 L (21-72) U/L Alkaline Phosphatase 138 H (38-126) U/L Total Protein 4.4 L (6.3-8.2) g/dL Albumin 2.4 L (3.5-5.0) g/dL Microbiology - Last 24 Hours (Table) 09/30/18 16:18 Urine Culture - Final Urine,Clean Catch 09/30/18 13:24 Blood Culture - Preliminary Blood No Growth after 48 hours Assessment and Plan Plan: Assessment: 1. End-stage renal disease maintained on hemodialysis on a Saturday schedule. 2. Status post failed renal transplant. 3. History of liver transplant maintained on immunosuppression. 4. Pneumonia maintained on antibiotics. 5. Lower extremity cellulitis. 6. Hyponatremia secondary to chronic kidney disease. Improved post dialysis. 7. Anemia of chronic kidney disease maintained on Aranesp. Plan: Currently seen while undergoing hemodialysis. Next treatment on Saturday.
[2018-10-03 11:49] LABS: Glucose,Whole Blood 94 mg/dL (75-99)
--- NOTE | 2018-10-03 13:07 | P.PN ---
Subjective Progress Note Date: 10/03/18 This is a 72-year-old male with a known past medical history of congestive heart failure, end-stage renal disease with hemodialysis Saturday, coronary artery disease with cardiac stents, chronic paroxysmal atrial fibrillation, diabetes mellitus type 2, kidney transplant in 2011 and liver tr ansplant in 2005, non-Hodgkin's lymphoma, hyperlipidemia and hypertension. Patient was transferred from [facility] due to fever of 102 and agitation. Patient had been in the ER 3 days ago with a fever dairy could not find a source of infection and patient wanted to be discharged back home. Patient was also hospitalized earlier in September treated for pneumonia and discharged with Augmentin. Patient does have lower extremity cellulitis of both legs legs are swollen painful there are blisters that have broken open on both tibia areas. Patient does have a history of MRSA in the nose. He has been placed on IV vancomycin and cefepime in the ER. Infectious disease has been consulted. Venous Dopplers have been ordered to rule out DVT. Chest x-ray showing evidence of increased density in the right infrahilar region and right suprahilar region which may reflect developing infiltrate. White count elevated 11.8 lactic acid normal at 1.4. Patient also hypoglycemic per family members at bedside reporting that he is not eating well. Blood sugar of 38. Received D5 in the ER. Blood sugar did improve up to 108. Patient did have mildly elevated troponin and repeat troponin ordered EKG showing a wide QRS and left bundle branch block. Cardiology has been consulted. Patient denies chest pain or shortness of breath, nausea vomiting, bowel movement changes. X-ray little urine is on hemodialysis. Patient is confused. On 10/01/2018 patient is alert and oriented resting comfortably in chair about a hemodialysis. At this time patient is complaining of just generalized pain to left side. Patient denies chest pain or shortness of breath. Patient denies nausea vomiting or diarrhea. Cardiology, nephrology infectious disease is following 10/02/2018 patient lying in bed. Complaining of leg pain. Leg dressing was just changed by nursing staff. He is currently on Zosyn and vancomycin for cellulitis and pneumonia. Telemetry monitoring showing possible episodes of at rial fibrillation. EKG has been ordered. Cardiology is following. Patient does have a known history of paroxysmal atrial fibrillation. Heart rate is controlled. Repeat chest x-ray showing possible atelectasis. Patient denies any chest pain or shortness of breath. Patient report has been a few days since his last bowel movement lactulose ordered. White count 14.9. Patient hemodialysis yesterday. Aranesp started by nephrology for his anemia. 10/03/2018 patient undergoing hemodialysis today. Both cardiology and pulmonary services have signed off. patient still having a lot of drainage from his legs. He is currently on vancomycin for the cellulitis. White count has improved down to 11.9. Patient reports improvement in his pain control. Denies any chest pain or shortness of breath. Denies any nausea or vomiting. Appreciate pulmonary service note they felt that there was unlikely pneumonia and that the findings and chest x-ray were mostly related to fluid and congestion. Infectious diseases discontinued Zosyn and his left patient on vancomycin for his lower extremity cellulitis. Patient given midodrine per nephrology during dialysis for hypotension Objective - Vital Signs Vital signs: Vital Signs Temp 98.0 F 10/03/18 07:40 Pulse 98 10/03/18 11:53 Resp 18 10/03/18 11:53 BP 110/61 10/03/18 11:53 Pulse Ox 99 10/03/18 07:40 Intake & Output 10/02/18 10/03/18 10/03/18 18:59 06:59 18:59 Intake Total 120 260 120 Output Total 500 Balance 120 260 -380 Weight 61.9 kg Intake: Oral 120 260 120 Output: Urine 500 Other: Voiding Method Urinal Urinal # Voids 1 0 - Exam Head normocephalic Neck supple Lungs clear to auscultation bilaterally no wheezing or crackles Heart regular rate and rhythm S1-S2, no rub or gallop Abdomen is soft nontender nondistended positive bowel sounds no hepatosplenomegaly Extremities edema bilateral lower extremities. Evidence of lower extremity cellulitis still having drainage from both legs. Neuro patient is awake and alert answering questions appropriately - Labs CBC & Chem 7: 10/03/18 06:02 10/03/18 06:02 Labs: Abnormal Lab Results - Last 24 Hours (Table) 10/02/18 10/02/18 10/03/18 Range/Units 16:35 20:43 05:57 WBC (3.8-10.6) k/uL RBC (4.30-5.90) m/uL Hgb (13.0-17.5) gm/dL Hct (39.0-53.0) % MCHC (31.0-37.0) g/dL RDW (11.5-15.5) % Neutrophils # (1.3-7.7) k/uL Lymphocytes # (1.0-4.8) k/uL Sodium (137-145) mmol/L Carbon Dioxide (22-30) mmol/L BUN (9-20) mg/dL Creatinine (0.66-1.25) mg/dL Glucose (74-99) mg/dL POC Glucose (mg/dL) 138 H 148 H 216 H (75-99) mg/dL AST (17-59) U/L ALT (21-72) U/L Alkaline Phosphatase (38-126) U/L Total Protein (6.3-8.2) g/dL Albumin (3.5-5.0) g/dL 10/03/18 10/03/18 Range/Units 06:02 06:02 WBC 11.9 H (3.8-10.6) k/uL RBC 3.46 L (4.30-5.90) m/uL Hgb 8.8 L (13.0-17.5) gm/dL Hct 30.7 L (39.0-53.0) % MCHC 28.5 L (31.0-37.0) g/dL RDW 17.8 H (11.5-15.5) % Neutrophils # 10.7 H (1.3-7.7) k/uL Lymphocytes # 0.5 L (1.0-4.8) k/uL Sodium 136 L (137-145) mmol/L Carbon Dioxide 19 L (22-30) mmol/L BUN 39 H (9-20) mg/dL Creatinine 3.20 H (0.66-1.25) mg/dL Glucose 210 H (74-99) mg/dL POC Glucose (mg/dL) (75-99) mg/dL AST 13 L (17-59) U/L ALT 10 L (21-72) U/L Alkaline Phosphatase 138 H (38-126) U/L Total Protein 4.4 L (6.3-8.2) g/dL Albumin 2.4 L (3.5-5.0) g/dL Microbiology - Last 24 Hours (Table) 09/30/18 16:18 Urine Culture - Final Urine,Clean Catch 09/30/18 13:24 Blood Culture - Preliminary Blood No Growth after 48 hours Assessment and Plan Assessment: 1. Fever and altered mental status: Likely due to metabolic encephalopathy due to bilateral lower extremity cellulitis 2. Bilateral lower extremity cellulitis and blisters and edema: Patient seen by infectious disease. Patient currently vancomycin. Venous Doppler negative for DVT bilaterally 3. Healthcare associated pneumonia: Continue antibiotics. Infectious disease following 4. Diabetes mellitus type 2 with episodes of hypoglycemia due to poor oral intake. Patient has been given an amp of D50. Hold patient's insulin. Add sliding scale coverage with Accu-Cheks every before meals and at bedtime. Previous A1c 7.58 5. Hypotension: Possibly related to acute infection and sepsis. Patient rec eiving IV fluids. We'll hold patient's hydralazine. Parameters have been placed around the metoprolol FOR SBP less than 110 or heart rate less than 55. 6. Sepsis present on admission: Patient had evidence of bilateral lower extremity cellulitis. Leukocytosis and hypotension. Per ER skilled nursing reported a fever of 102 7. Anemia of chronic disease secondary to renal failure. Nephrology is placed patient on Aranesp. Also will start ferrous sulfate for iron deficiency anemia 8. Mildly elevated troponin: Patient seen evaluated by cardiology. Elevated troponin likely secondary to sepsis not acute coronary syndrome 9. End-stage renal disease on hemodialysis Saturday. Followed by nephrology 10. History of chronic paroxysmal atrial fibrillation not on anticoagulation. On previous admission cardiology discontinue Eliquis due to low hemoglobin 11. Status post failed kidney transplant in 2011 12. Status post liver transplant 2005. Continue immunosuppression medications 13. History of coronary artery disease with cardiac stents 14. History of chronic systolic congestive heart failure with an EF of 45-50 15. History of non-Hodgkin's lymphoma 16. Hyperlipidemia 17. Hyponatremia secondary to chronic kidney disease improved postdialysis 18. Severe protein calorie malnutrition: add Glucerna shakes 19. Pneumonia ruled out. Patient seen by pulmonary service GI prophylaxis Protonix and DVT prophylaxis subcu heparin Okay to transfer patient to regular medical floor I performed an examination of the patient and discussed their management with the physician Buffing Machine Operator. I have reviewed the Physician Buffing Machine Operator's notes and agree with the documented findings and plan of care
[2018-10-03] MEDS: FUROSEMIDE 80 MG TAB PO SCH ×2 (13:51→15:45)
[2018-10-03] MEDS: METOPROLOL TARTRATE 50 MG TAB PO SCH ×2 (13:51→22:09)
[2018-10-03] MEDS: ASPIRIN 81 MG PO SCH (16:32)
[2018-10-03 17:27] LABS: Glucose,Whole Blood 161 mg/dL (75-99)
[2018-10-03] MEDS: ATORVASTATIN 20 MG TAB PO SCH (20:35)
[2018-10-03 20:42] LABS: Glucose,Whole Blood 185 mg/dL (75-99)
--- NOTE | 2018-10-04 00:32 | PN ---
PROGRESS NOTE DATE OF SERVICE: 10/03/2018. REASON FOR FOLLOWUP: Bilateral extremity wounds and cellulitis. INTERVAL HISTORY: The patient is currently afebrile. He is breathing comfortably. Denies having any chest pain or any cough. No abdominal pain or any worsening pain to the bilateral leg area. PHYSICAL EXAMINATION: Blood pressure is 140/77 with a pulse of 82, temperature of 97.4. She is 98% on room air. GENERAL DESCRIPTION: An elderly male lying in bed in no distress. RESPIRATORY SYSTEM: Unlabored breathing, decreased breath sounds in the bases. No wheeze. HERAT: S1, S2. Regular rate and rhythm. ABDOMEN: Soft, no tenderness. EXTREMITIES: Legs wrapped, no obvious drainage on the dressing. LABS: Hemoglobin 8.8, white count 7.9, BUN of 13, creatinine 2.0. DIAGNOSTIC IMPRESSION AND PLAN: Patient with bilateral lower extremity venous stasis ulcer with secondary cellulitis. The patient is currently covered with vancomycin. Continue local care with Aquacel Silver and an Mike wrap to keep the swelling down. MMODL / IJN: [id number] /
[2018-10-04] MEDS: SODIUM CHLORIDE 0.9% 1,000 ML IV SCH ×2 (01:35→08:14)
[2018-10-04] MEDS: HYDROmorphone 0.5 MG/0.5 ML SYRINGE IVP PRN (06:03)
[2018-10-04 07:19] LABS: Glucose,Whole Blood 162 mg/dL (75-99)
[2018-10-04] MEDS: ALLOPURINOL 100 MG TAB PO SCH (08:20)
[2018-10-04] MEDS: MAGNESIUM OXIDE 400 MG TAB PO SCH ×2 (08:20→17:44)
[2018-10-04] MEDS: HYDROcodone/APAP 10-325MG 1 EACH TAB PO SCH ×4 (08:20→21:38)
[2018-10-04] MEDS: FERROUS SULFATE 325 MG TAB PO SCH ×2 (08:20→21:37)
[2018-10-04] MEDS: MYCOPHENOLATE MOFETIL 250 MG CAP PO SCH ×2 (08:21→21:37)
[2018-10-04] MEDS: FUROSEMIDE 80 MG TAB PO SCH ×2 (08:21→17:44)
[2018-10-04] MEDS: predniSONE 2.5 MG TAB PO SCH (08:21)
[2018-10-04] MEDS: METOPROLOL TARTRATE 50 MG TAB PO SCH ×2 (08:21→21:37)
[2018-10-04] MEDS: CHOLECALCIFEROL 1,000 UNIT TAB PO SCH ×2 (08:21→17:44)
[2018-10-04] MEDS: DOCUSATE 100 MG CAP PO SCH ×2 (08:21→17:46)
[2018-10-04] MEDS: PANTOPRAZOLE 40 MG TABLET PO SCH (08:21)
[2018-10-04] MEDS: INSULIN ASPART (NovoLOG) 100 UNIT/ML VIAL SQ SCH ×4 (08:22→21:38)
[2018-10-04] MEDS: TACROLIMUS 1 MG CAP PO SCH ×2 (08:22→21:37)
[2018-10-04] MEDS: HEPARIN SODIUM,PORCINE 5,000 UNIT/ML 1 ML VIAL SQ SCH ×2 (08:22→21:38)
[2018-10-04] MEDS: IPRATROPIUM-ALBUTEROL 3 ML NEB INHALATION SCH ×4 (08:27→19:36)
[2018-10-04 10:46] LABS: Anisocytosis Slight; Basophils % (A) 0 %; Eosinophils % (A) 0 %; HCT 30.8 % (39.0-53.0); Hypochromasia Marked; Lymphocytes # (A) 0.5 k/uL (1.0-4.8); Lymphocytes % (A) 5 %; MCHC 29.3 g/dL (31.0-37.0); MCV 85.4 fL (80.0-100.0); Mean Platelet Volume 7.3; Monocytes # (A) 0.6 k/uL (0-1.0); Monocytes % (A) 6 %; Neutrophils # (A) 7.8 k/uL (1.3-7.7); Neutrophils % (A) 86 %; Platelet Count 274 k/uL (150-450); RDW 18.4 % (11.5-15.5); WBC 9.1 k/uL (3.8-10.6)
[2018-10-04 10:53] LABS: Albumin 2.4 g/dL (3.5-5.0); Calcium 8.6 mg/dL (8.4-10.2); Potassium 4.4 mmol/L (3.5-5.1); Total Bilirubin 0.7 mg/dL (0.2-1.3); Total Protein 4.5 g/dL (6.3-8.2)
[2018-10-04 10:58] LABS: Vancomycin,Random 23.1 ug/mL
[2018-10-04 12:08] LABS: Glucose,Whole Blood 164 mg/dL (75-99)
[2018-10-04 13:16] VITALS: BMI 21.2
--- NOTE | 2018-10-04 16:27 | P.PN ---
Subjective Progress Note Date: 10/04/18 This is a 72-year-old male with a known past medical history of congestive heart failure, end-stage renal disease with hemodialysis Saturday, coronary artery disease with cardiac stents, chronic paroxysmal atrial fibrillation, diabetes mellitus type 2, kidney transplant in 2011 and liver tr ansplant in 2005, non-Hodgkin's lymphoma, hyperlipidemia and hypertension. Patient was transferred from [facility] due to fever of 102 and agitation. Patient had been in the ER 3 days ago with a fever dairy could not find a source of infection and patient wanted to be discharged back home. Patient was also hospitalized earlier in September treated for pneumonia and discharged with Augmentin. Patient does have lower extremity cellulitis of both legs legs are swollen painful there are blisters that have broken open on both tibia areas. Patient does have a history of MRSA in the nose. He has been placed on IV vancomycin and cefepime in the ER. Infectious disease has been consulted. Venous Dopplers have been ordered to rule out DVT. Chest x-ray showing evidence of increased density in the right infrahilar region and right suprahilar region which may reflect developing infiltrate. White count elevated 11.8 lactic acid normal at 1.4. Patient also hypoglycemic per family members at bedside reporting that he is not eating well. Blood sugar of 38. Received D5 in the ER. Blood sugar did improve up to 108. Patient did have mildly elevated troponin and repeat troponin ordered EKG showing a wide QRS and left bundle branch block. Cardiology has been consulted. Patient denies chest pain or shortness of breath, nausea vomiting, bowel movement changes. X-ray little urine is on hemodialysis. Patient is confused. On 10/01/2018 patient is alert and oriented resting comfortably in chair about a hemodialysis. At this time patient is complaining of just generalized pain to left side. Patient denies chest pain or shortness of breath. Patient denies nausea vomiting or diarrhea. Cardiology, nephrology infectious disease is following 10/02/2018 patient lying in bed. Complaining of leg pain. Leg dressing was just changed by nursing staff. He is currently on Zosyn and vancomycin for cellulitis and pneumonia. Telemetry monitoring showing possible episodes of at rial fibrillation. EKG has been ordered. Cardiology is following. Patient does have a known history of paroxysmal atrial fibrillation. Heart rate is controlled. Repeat chest x-ray showing possible atelectasis. Patient denies any chest pain or shortness of breath. Patient report has been a few days since his last bowel movement lactulose ordered. White count 14.9. Patient hemodialysis yesterday. Aranesp started by nephrology for his anemia. 10/03/2018 patient undergoing hemodialysis today. Both cardiology and pulmonary services have signed off. patient still having a lot of drainage from his legs. He is currently on vancomycin for the cellulitis. White count has improved down to 11.9. Patient reports improvement in his pain control. Denies any chest pain or shortness of breath. Denies any nausea or vomiting. Appreciate pulmonary service note they felt that there was unlikely pneumonia and that the findings and chest x-ray were mostly related to fluid and congestion. Infectious diseases discontinued Zosyn and his left patient on vancomycin for his lower extremity cellulitis. Patient given midodrine per nephrology during dialysis for hypotension Objective - Vital Signs Vital signs: Vital Signs Temp 99.2 F 10/04/18 14:00 Pulse 86 10/04/18 14:00 Resp 16 10/04/18 14:00 BP 107/56 10/04/18 14:00 Pulse Ox 95 10/04/18 14:00 Intake & Output 10/03/18 10/04/18 10/04/18 18:59 06:59 18:59 Intake Total 420 250 Output Total 500 Balance -80 250 Weight 63.5 kg 63.5 kg Intake: Oral 420 250 Output: Urine 500 Other: Voiding Method Urinal Urinal # Voids 0 0 # Bowel Movements 1 - Exam Head normocephalic and atraumatic Neck supple no JVD no goiter Lungs clear to auscultation bilaterally no wheezing or crackles Heart regular rate and rhythm S1-S2, no rub or gallop Abdomen is soft nontender nondistended positive bowel sounds no hepatosplenomegaly Extremities edema bilateral lower extremities. Evidence of lower extremity cellulitis still having drainage from both legs. Neuro patient is awake and alert answering questions appropriately - Labs CBC & Chem 7: 10/04/18 09:51 10/04/18 09:51 Labs: Abnormal Lab Results - Last 24 Hours (Table) 10/03/18 10/03/18 10/04/18 Range/Units 17:25 20:41 07:11 RBC (4.30-5.90) m/uL Hgb (13.0-17.5) gm/dL Hct (39.0-53.0) % MCHC (31.0-37.0) g/dL RDW (11.5-15.5) % Neutrophils # (1.3-7.7) k/uL Lymphocytes # (1.0-4.8) k/uL Sodium (137-145) mmol/L Carbon Dioxide (22-30) mmol/L BUN (9-20) mg/dL Creatinine (0.66-1.25) mg/dL Glucose (74-99) mg/dL POC Glucose (mg/dL) 161 H 185 H 162 H (75-99) mg/dL AST (17-59) U/L Alkaline Phosphatase (38-126) U/L Total Protein (6.3-8.2) g/dL Albumin (3.5-5.0) g/dL 10/04/18 10/04/18 10/04/18 Range/Units 09:51 09:51 12:05 RBC 3.60 L (4.30-5.90) m/uL Hgb 9.0 L (13.0-17.5) gm/dL Hct 30.8 L (39.0-53.0) % MCHC 29.3 L (31.0-37.0) g/dL RDW 18.4 H (11.5-15.5) % Neutrophils # 7.8 H (1.3-7.7) k/uL Lymphocytes # 0.5 L (1.0-4.8) k/uL Sodium 133 L (137-145) mmol/L Carbon Dioxide 20 L (22-30) mmol/L BUN 28 H (9-20) mg/dL Creatinine 2.58 H (0.66-1.25) mg/dL Glucose 147 H (74-99) mg/dL POC Glucose (mg/dL) 164 H (75-99) mg/dL AST 15 L (17-59) U/L Alkaline Phosphatase 134 H (38-126) U/L Total Protein 4.5 L (6.3-8.2) g/dL Albumin 2.4 L (3.5-5.0) g/dL Microbiology - Last 24 Hours (Table) 09/30/18 13:24 Blood Culture - Preliminary Blood No Growth after 96 hours Assessment and Plan Plan: 1. Fever and altered mental status: Likely due to metabolic encephalopathy due to bilateral lower extremity cellulitis 2. Bilateral lower extremity cellulitis and blisters and edema: Patient seen by infectious disease. Patient currently vancomycin. Venous Doppler negative for DVT bilaterally 3. Healthcare associated pneumonia: Continue antibiotics. Infectious disease following 4. Diabetes mellitus type 2 with episodes of hypoglycemia due to poor oral intake. Patient has been given an amp of D50. Hold patient's insulin. Add sliding scale coverage with Accu-Cheks every before meals and at bedtime. Previous A1c 7.58 5. Hypotension: Possibly related to acute infection and sepsis. Patient receiving IV fluids. We'll hold patient's hydralazine. Parameters have been placed around the metoprolol FOR SBP less than 110 or heart rate less than 55. 6. Sepsis present on admission: Patient had evidence of bilateral lower extremity cellulitis. Leukocytosis and hypotension. Per ER care home reported a fever of 102 7. Anemia of chronic disease secondary to renal failure. Nephrology is placed patient on Aranesp. Also will start ferrous sulfate for iron deficiency anemia 8. Mildly elevated troponin: Patient seen evaluated by cardiology. Elevated troponin likely secondary to sepsis not acute coronary syndrome 9. End-stage renal disease on hemodialysis Saturday. Followed b y nephrology 10. History of chronic paroxysmal atrial fibrillation not on anticoagulation. On previous admission cardiology discontinue Eliquis due to low hemoglobin 11. Status post failed kidney transplant in 2011 12. Status post liver transplant 2005. Continue immunosuppression medications 13. History of coronary artery disease with cardiac stents 14. History of chronic systolic congestive heart failure with an EF of 45-50 15. History of non-Hodgkin's lymphoma 16. Hyperlipidemia 17. Hyponatremia secondary to chronic kidney disease improved postdialysis 18. Severe protein calorie malnutrition: add Glucerna jewell 19. Pneumonia ruled out. Patient seen by pulmonary service GI prophylaxis Protonix and DVT prophylaxis subcu heparin CODE STATUS discussed with in details At this time will change CODE STATUS to no code per 's request She will make further decision in regard to his case depending on his progress by Saturday
[2018-10-04 16:50] LABS: Glucose,Whole Blood 148 mg/dL (75-99)
[2018-10-04] MEDS: MULTIVITAMINS, THERA 1 EACH TAB PO SCH (17:44)
[2018-10-04] MEDS: ASPIRIN 81 MG PO SCH (17:44)
[2018-10-04 21:13] LABS: Glucose,Whole Blood 241 mg/dL (75-99)
[2018-10-04] MEDS: ATORVASTATIN 20 MG TAB PO SCH (21:37)
[2018-10-05 07:18] LABS: Glucose,Whole Blood 188 mg/dL (75-99)
[2018-10-05] MEDS: IPRATROPIUM-ALBUTEROL 3 ML NEB INHALATION SCH ×4 (08:52→19:35)
[2018-10-05] MEDS: FERROUS SULFATE 325 MG TAB PO SCH (09:07)
[2018-10-05] MEDS: PANTOPRAZOLE 40 MG TABLET PO SCH (09:07)
[2018-10-05] MEDS: METOPROLOL TARTRATE 50 MG TAB PO SCH (09:07)
[2018-10-05] MEDS: ALLOPURINOL 100 MG TAB PO SCH (09:07)
[2018-10-05] MEDS: INSULIN ASPART (NovoLOG) 100 UNIT/ML VIAL SQ SCH ×4 (09:08→20:28)
[2018-10-05] MEDS: MYCOPHENOLATE MOFETIL 250 MG CAP PO SCH ×2 (09:08→20:32)
[2018-10-05] MEDS: TACROLIMUS 1 MG CAP PO SCH ×2 (09:08→20:31)
[2018-10-05] MEDS: predniSONE 2.5 MG TAB PO SCH (09:08)
[2018-10-05] MEDS: DOCUSATE 100 MG CAP PO SCH ×2 (09:09→17:02)
[2018-10-05] MEDS: HYDROcodone/APAP 10-325MG 1 EACH TAB PO SCH ×4 (09:14→21:48)
[2018-10-05] MEDS: FUROSEMIDE 80 MG TAB PO SCH ×2 (09:14→17:03)
[2018-10-05] MEDS: HEPARIN SODIUM,PORCINE 5,000 UNIT/ML 1 ML VIAL SQ SCH ×2 (09:14→20:23)
[2018-10-05] MEDS: MAGNESIUM OXIDE 400 MG TAB PO SCH ×2 (09:14→17:03)
--- NOTE | 2018-10-05 11:23 | P.PN ---
Subjective Progress Note Date: 10/05/18 This is a 72-year-old male with a known past medical history of congestive heart failure, end-stage renal disease with hemodialysis Saturday, coronary artery disease with cardiac stents, chronic paroxysmal atrial fibrillation, diabetes mellitus type 2, kidney transplant in 2011 and liver tr ansplant in 2005, non-Hodgkin's lymphoma, hyperlipidemia and hypertension. Patient was transferred from [facility] due to fever of 102 and agitation. Patient had been in the ER 3 days ago with a fever dairy could not find a source of infection and patient wanted to be discharged back home. Patient was also hospitalized earlier in September treated for pneumonia and discharged with Augmentin. Patient does have lower extremity cellulitis of both legs legs are swollen painful there are blisters that have broken open on both tibia areas. Patient does have a history of MRSA in the nose. He has been placed on IV vancomycin and cefepime in the ER. Infectious disease has been consulted. Venous Dopplers have been ordered to rule out DVT. Chest x-ray showing evidence of increased density in the right infrahilar region and right suprahilar region which may reflect developing infiltrate. White count elevated 11.8 lactic acid normal at 1.4. Patient also hypoglycemic per family members at bedside reporting that he is not eating well. Blood sugar of 38. Received D5 in the ER. Blood sugar did improve up to 108. Patient did have mildly elevated troponin and repeat troponin ordered EKG showing a wide QRS and left bundle branch block. Cardiology has been consulted. Patient denies chest pain or shortness of breath, nausea vomiting, bowel movement changes. X-ray little urine is on hemodialysis. Patient is confused. On 10/01/2018 patient is alert and oriented resting comfortably in chair about a hemodialysis. At this time patient is complaining of just generalized pain to left side. Patient denies chest pain or shortness of breath. Patient denies nausea vomiting or diarrhea. Cardiology, nephrology infectious disease is following 10/02/2018 patient lying in bed. Complaining of leg pain. Leg dressing was just changed by nursing staff. He is currently on Zosyn and vancomycin for cellulitis and pneumonia. Telemetry monitoring showing possible episodes of at rial fibrillation. EKG has been ordered. Cardiology is following. Patient does have a known history of paroxysmal atrial fibrillation. Heart rate is controlled. Repeat chest x-ray showing possible atelectasis. Patient denies any chest pain or shortness of breath. Patient report has been a few days since his last bowel movement lactulose ordered. White count 14.9. Patient hemodialysis yesterday. Aranesp started by nephrology for his anemia. 10/03/2018 patient undergoing hemodialysis today. Both cardiology and pulmonary services have signed off. patient still having a lot of drainage from his legs. He is currently on vancomycin for the cellulitis. White count has improved down to 11.9. Patient reports improvement in his pain control. Denies any chest pain or shortness of breath. Denies any nausea or vomiting. Appreciate pulmonary service note they felt that there was unlikely pneumonia and that the findings and chest x-ray were mostly related to fluid and congestion. Infectious diseases discontinued Zosyn and his left patient on vancomycin for his lower extremity cellulitis. Patient given midodrine per nephrology during dialysis for hypotension On 10/04/2018 patient is alert and oriented 3 in no apparent distress complaining of pain in the bilateral lower extremities having minimal oral intake otherwise denies any complaints CODE STATUS discussed with and at this time he was changed to no code. On 10/05/2018 patient is alert and oriented in no apparent distress, complaining of bilateral lower extremity pain otherwise he denies any complaints, there is no fever or chills no headache or dizziness no chest pain no shortness of breath no cough no nausea or vomiting no abdominal pain no diarrhea and no urinary symptoms Objective - Vital Signs Vital signs: Vital Signs Temp 98.1 F 10/05/18 07:20 Pulse 78 10/05/18 09:04 Resp 16 10/05/18 07:20 BP 138/55 10/05/18 07:20 Pulse Ox 95 10/05/18 07:20 Intake & Output 10/04/18 10/05/18 10/05/18 18:59 06:59 18:59 Intake Total 250 160 50 Balance 250 160 50 Weight 63.5 kg Intake: Intake, IV Titration 160 Amount Sodium Chloride 0.9% 1, 160 000 ml @ 100 mls/hr IV . Q10H MAGDI Rx#:[id number] Oral 250 50 Other: Voiding Method Urinal Urinal # Voids 0 0 - Exam Head normocephalic and atraumatic Neck supple no JVD no goiter Lungs clear to auscultation bilaterally no wheezing or crackles Heart regular rate and rhythm S1-S2, no rub or gallop Abdomen is soft nontender nondistended positive bowel sounds no hepat osplenomegaly Extremities edema bilateral lower extremities. Evidence of lower extremity cellulitis still having drainage from both legs. Neuro patient is more alert today and oriented, there is no gross focal deficit - Labs CBC & Chem 7: 10/04/18 09:51 10/04/18 09:51 Labs: Abnormal Lab Results - Last 24 Hours (Table) 10/04/18 10/04/18 10/04/18 Range/Units 12:05 16:47 21:12 POC Glucose (mg/dL) 164 H 148 H 241 H (75-99) mg/dL 10/05/18 Range/Units 07:14 POC Glucose (mg/dL) 188 H (75-99) mg/dL Microbiology - Last 24 Hours (Table) 09/30/18 13:24 Blood Culture - Preliminary Blood No Growth after 96 hours Assessment and Plan Plan: 1. Fever and altered mental status: Likely due to metabolic encephalopathy due to bilateral lower extremity cellulitis 2. Bilateral lower extremity cellulitis and blisters and edema: Patient seen by infectious disease. Patient currently vancomycin. Venous Doppler negative for DVT bilaterally 3. Healthcare associated pneumonia: Continue antibiotics. Infectious disease following 4. Diabetes mellitus type 2 with episodes of hypoglycemia due to poor oral intake. Patient has been given an amp of D50. Hold patient's insulin. Add sliding scale coverage with Accu-Cheks every before meals and at bedtime. Previous A1c 7.58 5. Hypotension: Possibly related to acute infection and sepsis. Patient receiving IV fluids. We'll hold patient's hydralazine. Parameters have been placed around the metoprolol FOR SBP less than 110 or heart rate less than 55. 6. Sepsis present on admission: Patient had evidence of bilateral lower extremity cellulitis. Leukocytosis and hypotension. Per ER mcc reported a fever of 102 7. Anemia of chronic disease secondary to renal failure. Nephrology is placed patient on Aranesp. Also will start ferrous sulfate for iron deficiency anemia 8. Mildly elevated troponin: Patient seen evaluated by cardiology. Elevated troponin likely secondary to sepsis not acute coronary syndrome 9. End-stage renal disease on hemodialysis Saturday. Followed by nephrology 10. History of chronic paroxysmal atrial fibrillation not on anticoagulation. On previous admission cardiology discontinue Eliquis due to low hemoglobin 11. Status post failed kidney transplant in 2011 12. Status post liver transplant 2005. Continue immunosuppression medications 13. History of coronary artery disease with cardiac stents 14. History of chronic systolic congestive heart failure with an EF of 45-50 15. History of non-Hodgkin's lymphoma 16. Hyperlipidemia 17. Hyponatremia secondary to chronic kidney disease improved postdialysis 18. Severe protein calorie malnutrition: add Glucerna shakes 19. Pneumonia ruled out. Patient seen by pulmonary service GI prophylaxis Protonix and DVT prophylaxis subcu heparin CODE STATUS discussed with in details At this time will change CODE STATUS to no code per 's request She will make further decision in regard to his case depending on his progress by Saturday
[2018-10-05 11:50] LABS: Glucose,Whole Blood 104 mg/dL (75-99)
[2018-10-05 12:27] LABS: Anisocytosis Slight; Basophils % (A) 0 %; Eosinophils # (A) 0.1 k/uL (0-0.7); Eosinophils % (A) 1 %; HCT 32.7 % (39.0-53.0); HGB 9.3 gm/dL (13.0-17.5); Hypochromasia Marked; Lymphocytes # (A) 0.5 k/uL (1.0-4.8); Lymphocytes % (A) 5 %; MCH 24.8 pg (25.0-35.0); MCHC 28.5 g/dL (31.0-37.0); MCV 87.2 fL (80.0-100.0); Mean Platelet Volume 7.6; Monocytes # (A) 0.5 k/uL (0-1.0); Monocytes % (A) 5 %; Neutrophils # (A) 8.6 k/uL (1.3-7.7); Neutrophils % (A) 87 %; Platelet Count 286 k/uL (150-450); RBC 3.75 m/uL (4.30-5.90); RDW 18.4 % (11.5-15.5); WBC 9.9 k/uL (3.8-10.6)
[2018-10-05 12:38] LABS: Albumin 2.3 g/dL (3.5-5.0); Calcium 8.7 mg/dL (8.4-10.2); Potassium 4.5 mmol/L (3.5-5.1); Total Bilirubin 0.5 mg/dL (0.2-1.3); Total Protein 4.4 g/dL (6.3-8.2)
[2018-10-05 12:43] LABS: Vancomycin,Random 20.2 ug/mL
[2018-10-05] MEDS: HYDROmorphone 0.5 MG/0.5 ML SYRINGE IVP PRN ×3 (13:02→20:21)
--- NOTE | 2018-10-05 14:49 | P.PN ---
Subjective Progress Note Date: 10/05/18 Seen and examined for the follow-up off ESRD. On dialysis since June. A Saturday schedule. In the hospital for lower extremity cellulitis. Objective - Vital Signs Vital signs: Vital Signs Temp 98.1 F 10/05/18 07:20 Pulse 78 10/05/18 11:51 Resp 16 10/05/18 07:20 BP 138/55 10/05/18 07:20 Pulse Ox 95 10/05/18 07:20 Intake & Output 10/04/18 10/05/18 10/05/18 18:59 06:59 18:59 Intake Total 250 160 75 Output Total 100 Balance 250 160 -25 Weight 63.5 kg Intake: Intake, IV Titration 160 Amount Sodium Chloride 0.9% 1, 160 000 ml @ 100 mls/hr IV . Q10H MAGDI Rx#:[id number] Oral 250 75 Output: Urine 100 Other: Voiding Method Urinal Urinal # Voids 0 0 - Exam No acute distress S1-S2 heard Right jugular permacath Decreased breath sounds No edema - Labs CBC & Chem 7: 10/05/18 11:16 10/05/18 11:16 Labs: Abnormal Lab Results - Last 24 Hours (Table) 10/04/18 10/04/18 10/05/18 Range/Units 16:47 21:12 07:14 RBC (4.30-5.90) m/uL Hgb (13.0-17.5) gm/dL Hct (39.0-53.0) % MCH (25.0-35.0) pg MCHC (31.0-37.0) g/dL RDW (11.5-15.5) % Neutrophils # (1.3-7.7) k/uL Lymphocytes # (1.0-4.8) k/uL Sodium (137-145) mmol/L Carbon Dioxide (22-30) mmol/L BUN (9-20) mg/dL Creatinine (0.66-1.25) mg/dL Glucose (74-99) mg/dL POC Glucose (mg/dL) 148 H 241 H 188 H (75-99) mg/dL AST (17-59) U/L ALT (21-72) U/L Total Protein (6.3-8.2) g/dL Albumin (3.5-5.0) g/dL 10/05/18 10/05/18 10/05/18 Range/Units 11:16 11:16 11:49 RBC 3.75 L (4.30-5.90) m/uL Hgb 9.3 L (13.0-17.5) gm/dL Hct 32.7 L (39.0-53.0) % MCH 24.8 L (25.0-35.0) pg MCHC 28.5 L (31.0-37.0) g/dL RDW 18.4 H (11.5-15.5) % Neutrophils # 8.6 H (1.3-7.7) k/uL Lymphocytes # 0.5 L (1.0-4.8) k/uL Sodium 136 L (137-145) mmol/L Carbon Dioxide 19 L (22-30) mmol/L BUN 37 H (9-20) mg/dL Creatinine 3.46 H (0.66-1.25) mg/dL Glucose 109 H (74-99) mg/dL POC Glucose (mg/dL) 104 H (75-99) mg/dL AST 10 L (17-59) U/L ALT 14 L (21-72) U/L Total Protein 4.4 L (6.3-8.2) g/dL Albumin 2.3 L (3.5-5.0) g/dL Microbiology - Last 24 Hours (Table) 09/30/18 13:24 Blood Culture - Preliminary Blood No Growth after 96 hours Assessment and Plan Assessment: #1 end-stage renal disease on hemodialysis MWF schedule follows with Dr. Wong as outpatient at [facility], right jugular permacath. #2 status post failed renal transplant currently on hemodialysis #3 liver transplant maintained on immunosuppression #4 pneumonia on antibiotics #5 lower extremity cellulitis #6 anemia with ESRD. #7 hypertension with ESRD Plan: #1 hemodialysis tomorrow as per outpatient schedule #2 ESRD medications #3 on Prograf and mycophenolate for immunosuppression.
[2018-10-05] MEDS: MULTIVITAMINS, THERA 1 EACH TAB PO SCH (17:02)
[2018-10-05] MEDS: ASPIRIN 81 MG PO SCH (17:02)
[2018-10-05 17:20] LABS: Glucose,Whole Blood 172 mg/dL (75-99)
[2018-10-05 20:31] VITALS: RESP 20; TEMP 97.7
[2018-10-05 20:31] LABS: Glucose,Whole Blood 165 mg/dL (75-99)
[2018-10-05] MEDS: ATORVASTATIN 20 MG TAB PO SCH (20:31)
[2018-10-06] MEDS: METOPROLOL TARTRATE 50 MG TAB PO SCH ×2 (00:46→08:33)
[2018-10-06] MEDS: HYDROmorphone 0.5 MG/0.5 ML SYRINGE IVP PRN ×4 (00:50→11:58)
[2018-10-06] MEDS: IPRATROPIUM-ALBUTEROL 3 ML NEB INHALATION SCH ×2 (07:09→11:29)
[2018-10-06 07:11] LABS: Glucose,Whole Blood 157 mg/dL (75-99)
[2018-10-06 08:20] VITALS: BP 145/68; PULSE 83
[2018-10-06] MEDS: HEPARIN SODIUM,PORCINE 5,000 UNIT/ML 1 ML VIAL SQ SCH (08:31)
[2018-10-06] MEDS: HYDROcodone/APAP 10-325MG 1 EACH TAB PO SCH ×2 (08:32→13:14)
[2018-10-06] MEDS: DOCUSATE 100 MG CAP PO SCH (08:32)
[2018-10-06] MEDS: CHOLECALCIFEROL 1,000 UNIT TAB PO SCH (08:33)
[2018-10-06] MEDS: PANTOPRAZOLE 40 MG TABLET PO SCH (08:33)
[2018-10-06] MEDS: ALLOPURINOL 100 MG TAB PO SCH (08:33)
[2018-10-06] MEDS: predniSONE 2.5 MG TAB PO SCH (08:33)
[2018-10-06] MEDS: MAGNESIUM OXIDE 400 MG TAB PO SCH (08:33)
[2018-10-06] MEDS: FUROSEMIDE 80 MG TAB PO SCH (08:33)
[2018-10-06] MEDS: FERROUS SULFATE 325 MG TAB PO SCH (08:33)
[2018-10-06] MEDS: MYCOPHENOLATE MOFETIL 250 MG CAP PO SCH (08:33)
[2018-10-06] MEDS: TACROLIMUS 1 MG CAP PO SCH (08:34)
[2018-10-06] MEDS: INSULIN ASPART (NovoLOG) 100 UNIT/ML VIAL SQ SCH ×2 (08:34→12:25)
[2018-10-06 12:02] LABS: Glucose,Whole Blood 174 mg/dL (75-99)
[2018-10-06 12:12] LABS: Anisocytosis Slight; Basophils % (A) 0 %; Eosinophils # (A) 0.1 k/uL (0-0.7); Eosinophils % (A) 1 %; HCT 30.1 % (39.0-53.0); HGB 9.2 gm/dL (13.0-17.5); Hypochromasia Marked; Lymphocytes # (A) 0.4 k/uL (1.0-4.8); Lymphocytes % (A) 4 %; MCH 26.4 pg (25.0-35.0); MCHC 30.5 g/dL (31.0-37.0); MCV 86.8 fL (80.0-100.0); Mean Platelet Volume 7.6; Monocytes # (A) 0.4 k/uL (0-1.0); Monocytes % (A) 4 %; Neutrophils # (A) 9.3 k/uL (1.3-7.7); Neutrophils % (A) 90 %; Platelet Count 272 k/uL (150-450); Poikilocytosis Slight; RBC 3.47 m/uL (4.30-5.90); RDW 19.3 % (11.5-15.5); WBC 10.4 k/uL (3.8-10.6)
[2018-10-06 12:30] LABS: Albumin 2.3 g/dL (3.5-5.0); Calcium 8.4 mg/dL (8.4-10.2); Potassium 4.5 mmol/L (3.5-5.1); Total Bilirubin 0.5 mg/dL (0.2-1.3); Total Protein 4.3 g/dL (6.3-8.2)
--- NOTE | 2018-10-06 12:33 | P.PN ---
Subjective Progress Note Date: 10/06/18 This is a 72-year-old male with a known past medical history of congestive heart failure, end-stage renal disease with hemodialysis Saturday, coronary artery disease with cardiac stents, chronic paroxysmal atrial fibrillation, diabetes mellitus type 2, kidney transplant in 2011 and liver tr ansplant in 2005, non-Hodgkin's lymphoma, hyperlipidemia and hypertension. Patient was transferred from [facility] due to fever of 102 and agitation. Patient had been in the ER 3 days ago with a fever dairy could not find a source of infection and patient wanted to be discharged back home. Patient was also hospitalized earlier in September treated for pneumonia and discharged with Augmentin. Patient does have lower extremity cellulitis of both legs legs are swollen painful there are blisters that have broken open on both tibia areas. Patient does have a history of MRSA in the nose. He has been placed on IV vancomycin and cefepime in the ER. Infectious disease has been consulted. Venous Dopplers have been ordered to rule out DVT. Chest x-ray showing evidence of increased density in the right infrahilar region and right suprahilar region which may reflect developing infiltrate. White count elevated 11.8 lactic acid normal at 1.4. Patient also hypoglycemic per family members at bedside reporting that he is not eating well. Blood sugar of 38. Received D5 in the ER. Blood sugar did improve up to 108. Patient did have mildly elevated troponin and repeat troponin ordered EKG showing a wide QRS and left bundle branch block. Cardiology has been consulted. Patient denies chest pain or shortness of breath, nausea vomiting, bowel movement changes. X-ray little urine is on hemodialysis. Patient is confused. On 10/01/2018 patient is alert and oriented resting comfortably in chair about a hemodialysis. At this time patient is complaining of just generalized pain to left side. Patient denies chest pain or shortness of breath. Patient denies nausea vomiting or diarrhea. Cardiology, nephrology infectious disease is following 10/02/2018 patient lying in bed. Complaining of leg pain. Leg dressing was just changed by nursing staff. He is currently on Zosyn and vancomycin for cellulitis and pneumonia. Telemetry monitoring showing possible episodes of at rial fibrillation. EKG has been ordered. Cardiology is following. Patient does have a known history of paroxysmal atrial fibrillation. Heart rate is controlled. Repeat chest x-ray showing possible atelectasis. Patient denies any chest pain or shortness of breath. Patient report has been a few days since his last bowel movement lactulose ordered. White count 14.9. Patient hemodialysis yesterday. Aranesp started by nephrology for his anemia. 10/03/2018 patient undergoing hemodialysis today. Both cardiology and pulmonary services have signed off. patient still having a lot of drainage from his legs. He is currently on vancomycin for the cellulitis. White count has improved down to 11.9. Patient reports improvement in his pain control. Denies any chest pain or shortness of breath. Denies any nausea or vomiting. Appreciate pulmonary service note they felt that there was unlikely pneumonia and that the findings and chest x-ray were mostly related to fluid and congestion. Infectious diseases discontinued Zosyn and his left patient on vancomycin for his lower extremity cellulitis. Patient given midodrine per nephrology during dialysis for hypotension On 10/04/2018 patient is alert and oriented 3 in no apparent distress complaining of pain in the bilateral lower extremities having minimal oral intake otherwise denies any complaints CODE STATUS discussed with and at this time he was changed to no code. On 10/05/2018 patient is alert and oriented in no apparent distress, complaining of bilateral lower extremity pain otherwise he denies any complaints, there is no fever or chills no headache or dizziness no chest pain no shortness of breath no cough no nausea or vomiting no abdominal pain no diarrhea and no urinary symptoms 10/06/2018 patient lying in bed. Complaining of bilateral leg pain. Patient is requiring IV Dilaudid and his [place] around the clock. He is receiving hemodialysis. CODE STATUS was changed to DO NOT RESUSCITATE yesterday. Dis cussed with patient's regarding hospice and comfort care. She reports that she did discuss with patient's son and the family does want to proceed with hospice. Hospice consult has been placed. Objective - Vital Signs Vital signs: Vital Signs Temp 97.7 F 10/06/18 05:00 Pulse 92 10/06/18 07:20 Resp 20 10/06/18 05:00 BP 145/68 10/06/18 05:00 Pulse Ox 96 10/06/18 05:00 Intake & Output 10/05/18 10/06/18 10/06/18 18:59 06:59 18:59 Intake Total 225 Output Total 200 50 Balance 25 -50 Intake: Oral 225 Output: Urine 200 50 Other: Voiding Method Urinal Urinal Urinal # Voids 0 - Exam Head normocephalic Neck supple Lungs clear to auscultation bilaterally no wheezing or crackles Heart regular rate and rhythm S1-S2, no rub or gallop Abdomen is soft nontender nondistended positive bowel sounds no hepa tosplenomegaly Extremities edema bilateral lower extremities. Cellulitis and ulcers the legs bilaterally Neuro patient is awake and alert answering questions appropriately - Labs CBC & Chem 7: 10/06/18 11:00 10/06/18 11:00 Labs: Abnormal Lab Results - Last 24 Hours (Table) 10/05/18 10/05/18 10/05/18 Range/Units 11:16 11:16 17:16 RBC 3.75 L (4.30-5.90) m/uL Hgb 9.3 L (13.0-17.5) gm/dL Hct 32.7 L (39.0-53.0) % MCH 24.8 L (25.0-35.0) pg MCHC 28.5 L (31.0-37.0) g/dL RDW 18.4 H (11.5-15.5) % Neutrophils # 8.6 H (1.3-7.7) k/uL Lymphocytes # 0.5 L (1.0-4.8) k/uL Sodium 136 L (137-145) mmol/L Carbon Dioxide 19 L (22-30) mmol/L BUN 37 H (9-20) mg/dL Creatinine 3.46 H (0.66-1.25) mg/dL Glucose 109 H (74-99) mg/dL POC Glucose (mg/dL) 172 H (75-99) mg/dL AST 10 L (17-59) U/L ALT 14 L (21-72) U/L Total Protein 4.4 L (6.3-8.2) g/dL Albumin 2.3 L (3.5-5.0) g/dL 10/05/18 10/06/18 10/06/18 Range/Units 20:24 06:53 11:00 RBC 3.47 L (4.30-5.90) m/uL Hgb 9.2 L (13.0-17.5) gm/dL Hct 30.1 L (39.0-53.0) % MCH (25.0-35.0) pg MCHC 30.5 L (31.0-37.0) g/dL RDW 19.3 H (11.5-15.5) % Neutrophils # 9.3 H (1.3-7.7) k/uL Lymphocytes # 0.4 L (1.0-4.8) k/uL Sodium (137-145) mmol/L Carbon Dioxide (22-30) mmol/L BUN (9-20) mg/dL Creatinine (0.66-1.25) mg/dL Glucose (74-99) mg/dL POC Glucose (mg/dL) 165 H 157 H (75-99) mg/dL AST (17-59) U/L ALT (21-72) U/L Total Protein (6.3-8.2) g/dL Albumin (3.5-5.0) g/dL 10/06/18 10/06/18 Range/Units 11:00 11:55 RBC (4.30-5.90) m/uL Hgb (13.0-17.5) gm/dL Hct (39.0-53.0) % MCH (25.0-35.0) pg MCHC (31.0-37.0) g/dL RDW (11.5-15.5) % Neutrophils # (1.3-7.7) k/uL Lymphocytes # (1.0-4.8) k/uL Sodium 136 L (137-145) mmol/L Carbon Dioxide (22-30) mmol/L BUN 39 H (9-20) mg/dL Creatinine 3.45 H (0.66-1.25) mg/dL Glucose 165 H (74-99) mg/dL POC Glucose (mg/dL) 174 H (75-99) mg/dL AST 11 L (17-59) U/L ALT 15 L (21-72) U/L Total Protein 4.3 L (6.3-8.2) g/dL Albumin 2.3 L (3.5-5.0) g/dL Microbiology - Last 24 Hours (Table) 09/30/18 13:24 Blood Culture - Preliminary Blood No Growth after 120 hours Assessment and Plan Assessment: 1. Fever and altered mental status: Likely due to metabolic encephalopathy due to bilateral lower extremity cellulitis 2. Bilateral lower extremity cellulitis and blisters and edema: Patient seen by infectious disease. Patient currently vancomycin. Venous Doppler negative for DVT bilaterally 3. Healthcare associated pneumonia: Continue antibiotics. Infectious disease following 4. Diabetes mellitus type 2 with episodes of hypoglycemia due to poor oral intake. Patient has been given an amp of D50. Hold patient's insulin. Add sliding scale coverage with Accu-Cheks every before meals and at bedtime. Previous A1c 7.58 5. Hypotension: Possibly related to acute infection and sepsis. Patient receiving IV fluids. We'll hold patient's hydralazine. Parameters have been placed around the metoprolol FOR SBP less than 110 or heart rate less than 55. 6. Sepsis present on admission: Patient had evidence of bilateral lower extremity cellulitis. Leukocytosis and hypotension. Per ER mcc reported a fever of 102 7. Anemia of chronic disease secondary to renal failure. Nephrology is placed patient on Aranesp. Also will start ferrous sulfate for iron deficiency anemia 8. Mildly elevated troponin: Patient seen evaluated by cardiology. Elevated troponin likely secondary to sepsis not acute coronary syndrome 9. End-stage renal disease on hemodialysis Saturday. Followed by nephrology 10. History of chronic paroxysmal atrial fibrillation not on anticoagulation. On previous admission cardiology discontinue Eliquis due to low hemoglobin 11. Status post failed kidney transplant in 2011 12. Status post liver transplant 2005. Continue immunosuppression medications 13. History of coronary artery disease with cardiac stents 14. History of chronic systolic congestive heart failure with an EF of 45-50 15. History of non-Hodgkin's lymphoma 16. Hyperlipidemia 17. Hyponatremia secondary to chronic kidney disease improved post dialysis 18. Severe protein calorie malnutrition: add Roseann corcoran 19. Pneumonia ruled out. Patient seen by pulmonary service GI prophylaxis Protonix and DVT prophylaxis subcu heparin CODE STATUS DO NOT RESUSCITATE Consult placed for hospice I performed an examination of the patient and discussed their management with the physician Bonding Machine Operator. I have reviewed the Physician Bonding Machine Operator's notes and agree with the documented findings and plan of care
--- NOTE | 2018-10-06 16:27 | PN ---
PROGRESS NOTE DATE OF SERVICE: 10/06/2018. REASON FOR FOLLOWUP: Bilateral lower extremity wound cellulitis. INTERVAL HISTORY: The patient is seen on rounds this morning. The patient has been afebrile, has been complaining of pain to the leg area. He did have some superficial both legs with blood blister on the left foot plantar aspect. The patient no nausea, vomiting with no chest pain, shortness of breath. No abdominal pain or any diarrhea. PHYSICAL EXAMINATION: Blood pressure 145/68 with a pulse of 83, temperature 97.7. He is 97% on room air. General description is an elderly male lying in bed in no distress. Respiratory system: Unlabored breathing. Clear to auscultation anteriorly. Heart S1, S2. Regular rate and rhythm. Abdomen soft, no tenderness. Bilateral legs with some superficial ulceration. No significant redness or any foul-smelling drainage. LABS: Hemoglobin 9.1, white count of 10.4 with a BUN of 39, creatinine 3.45. DIAGNOSTIC IMPRESSION AND PLAN: Patient with bilateral lower extremity venous ulcer with secondary cellulitis. The patient is currently covered with IV vancomycin. Local wound care with Aquacel Silver dressing. Family is leaning more towards hospice care which may be appropriate. Antibiotic can be safely discontinued. Continue supportive care. MMODL / IJN: [id number] /
--- NOTE | 2018-10-06 20:18 | PN ---
PROGRESS NOTE Patient is seen for followup for end-stage renal disease. He is scheduled for hemodialysis today. This morning patient denies any complaints except for pain in his legs for which he is receiving pain medications. PHYSICAL EXAMINATION: This morning, blood pressure is 145/68, heart rate 83 per minute. He is afebrile. Examination of the heart S1, S2. Examination of the lungs, decreased breath sounds at bases. No crackles or wheezing is heard. Abdomen is soft, nontender. Examination lower extremities shows significant improvement in edema with superficial ulcers and ulceration noted on the skin of his lower extremities. SPECIAL EDUCATION ASSISTANT exam shows patient is moving all 4 extremities. LAB: Show hemoglobin 9.2. Sodium 136, potassium 4.5, BUN 39, serum creatinine 3.45. ASSESSMENT: 1. End-stage renal disease, on hemodialysis on a Saturday, Saturday, Saturday schedule. The patient is scheduled for hemodialysis today. 2. Volume overload, currently improved. 3. Lower extremity cellulitis, slowly improving. 4. Anemia of chronic disease. 5. Status post liver transplant, maintained on immunosuppression. PLAN: Hemodialysis today following which patient can be discharged and he will follow up for his next treatment on Saturday. MMODL / IJN: [id number] /
--- NOTE | 2018-10-07 14:30 | P.DS ---
Providers Date of admission: 09/30/18 15:45 Expected date of discharge: 10/06/18 Attending physician: Jayla Mahmood Consults: 09/30/18 15:36 Consult Physician Stat Consulting Provider: Skyler Benson Consult Reason/Comments: HCAP, Lower extremity wound Do you want consulting provider notified?: Yes Consult Physician Stat Consulting Provider: Kerrie Pham Consult Reason/Comments: Dialysis pt Do you want consulting provider notified?: Yes 09/30/18 15:48 Consult Physician Routine Consulting Provider: Janet Knapp Consult Reason/Comments: elevated tropinin, abnormal EKG Do you want consulting provider notified?: Yes 10/02/18 13:16 Consult Physician Routine Consulting Provider: Doroteo Bhatia Consult Reason/Comments: critical care Do you want consulting provider notified?: Yes Primary care physician: Jayla Mahmood Hospital Course: Discharge diagnosis Terminal diagnosis end-stage renal failure and chronic systolic congestive heart failure 1. Fever and altered mental status: Likely due to metabolic encephalopathy due to bilateral lower extremity cellulitis 2. Bilateral lower extremity cellulitis with venous stasis ulcers : Venous Doppler negative for DVT bilaterally 3. Pneumonia ruled out. Patient seen by pulmonary service 4. Diabetes mellitus type 2 with episodes of hypoglycemia due to poor oral intake. Previous A1c 7.58 5. Hypotension: Possibly related to acute infection and sepsis 6. Sepsis present on admission: Patient had evidence of bilateral lower extremity cellulitis. Leukocytosis and hypotension. Per ER prison rep orted a fever of 102 7. Anemia of chronic disease secondary to renal failure. Nephrology is placed patient on Aranesp. Also will start ferrous sulfate for iron deficiency anemia 8. Mildly elevated troponin: Patient seen evaluated by cardiology. Elevated troponin likely secondary to sepsis not acute coronary syndrome 9. End-stage renal disease on hemodialysis Saturday. Followed by nephrology 10. History of chronic paroxysmal atrial fibrillation not on anticoagulation. On previous admission cardiology discontinue Eliquis due to low hemoglobin 11. Status post failed kidney transplant in 2011 12. Status post liver transplant 2005. Continue immunosuppression medications 13. History of coronary artery disease with cardiac stents 14. History of chronic systolic congestive heart failure with an EF of 45-50 15. History of non-Hodgkin's lymphoma 16. Hyperlipidemia 17. Hyponatremia secondary to chronic kidney disease improved post dialysis 18. Severe protein calorie malnutrition Hospital course This is a 72-year-old male with a known past medical history of congestive heart failure, end-stage renal disease with hemodialysis Saturday, coronary artery disease with cardiac stents, chronic paroxysmal atrial fibrillation, diabetes mellitus type 2, kidney transplant in 2011 and liver transplant in 2005, non-Hodgkin's lymphoma, hyperlipidemia and hypertension. Patient was transferred from [facility] due to fever of 102 and agitation. Patient had been in the ER 3 days ago with a fever dairy could not find a source of infection and patient wanted to be discharged back home. Patient was also hospitalized earlier in September treated for pneumonia and discharged with Augmentin. Patient does have lower extremity cellulitis of both legs legs are swollen painful there are blisters that have broken open on both tibia areas. Patient does have a history of MRSA in the nose. He has been placed on IV vancomycin and cefepime in the ER. Infectious disease has been consulted. Venous Dopplers have been ordered to rule out DVT. Chest x-ray showing evidence of increased density in the right infrahilar region and right suprahilar region which may reflect developing infiltrate. White count elevated 11.8 lactic acid normal at 1.4. Patient also hypoglycemic per family members at bedside reporting that he is not eating well. Blood sugar of 38. Received D5 in the ER. Blood sugar did improve up to 108. Patient did have mildly elevated troponin and repeat troponin ordered EKG showing a wide QRS and left bundle branch block. Cardiology has been consulted. Patient denies chest pain or shortness of breath, nausea vomiting, bowel movement changes. X-ray little urine is on hemodialysis. Patient is confused. On 10/01/2018 patient is alert and oriented resting comfortably in chair about a hemodialysis. At this time patient is complaining of just generalized pain to left side. Patient denies chest pain or shortness of breath. Patient denies nausea vomiting or diarrhea. Cardiology, nephrology infectious disease is following 10/02/2018 patient lying in bed. Complaining of leg pain. Leg dressing was just changed by nursing staff. He is currently on Zosyn and vancomycin for cellulitis and pneumonia. Telemetry monitoring showing possible episodes of atrial fibrillation. EKG has been ordered. Cardiology is following. Patient does have a known history of paroxysmal atrial fibrillation. Heart rate is controlled. Repeat chest x-ray showing possible atelectasis. Patient denies any chest pain or shortness of breath. Patient report has been a few days since his last bowel movement lactulose ordered. White count 14.9. Patient hemodialysis yesterday. Aranesp started by nephrology for his anemia. 10/03/2018 patient undergoing hemodialysis today. Both cardiology and pulmonary services have signed off. patient still having a lot of drainage from his legs. He is currently on vancomycin for the cellulitis. White count has improved down to 11.9. Patient reports improvement in his pain control. Denies any chest pain or shortness of breath. Denies any nausea or vomiting. Appreciate pulmonary service note they felt that there was unlikely pneumonia and that the findings and chest x-ray were mostly related to fluid and congestion. Infectious diseases discontinued Zosyn and his left patient on vancomycin for his lower extremity cellulitis. Patient given midodrine per nephrology during dialysis for hypotension On 10/04/2018 patient is alert and oriented 3 in no apparent distress complaining of pain in the bilateral lower extremities having minimal oral intake otherwise denies any complaints CODE STATUS discussed with and at this time he was changed to no code. On 10/05/2018 patient is alert and oriented in no apparent distress, complaining of bilateral lower extremity pain otherwise he denies any complaints, there is no fever or chills no headache or dizziness no chest pain no shortness of breath no cough no nausea or vomiting no abdominal pain no diarrhea and no urinary symptoms 10/06/2018 patient lying in bed. Complaining of bilateral leg pain. Patient is requiring IV Dilaudid and his [place] around the clock. He is receiving hemodialysis. CODE STATUS was changed to DO NOT RESUSCITATE yesterday. Discussed with patient's regarding hospice and comfort care. She reports that she did discuss with patient's son and the family does want to proceed with hospice. Hospice consult has been placed. Patient's overall condition is poor and guarded. He did not have significant improvement with aggressive treatment. Please refer to chart for any further details. Patient has been discharged and will be admitted to inpatient hospice. I performed an examination of the patient and discussed their management with the physician French Lecturer. I have reviewed the Physician French Lecturer's notes and agree with the documented findings and plan of care Patient Condition at Discharge: Stable Plan - Discharge Summary Discharge Rx Participant: No New Discharge Prescriptions: No Action Atorvastatin [Lipitor] 20 mg PO HS@2100 Tacrolimus [Prograf] 3 mg PO QAM Allopurinol [Zyloprim] 100 mg PO DAILY@0800 Tacrolimus [Prograf] 4 mg PO HS hydrALAZINE HCL [Apresoline] 25 mg PO TID #90 tab Metoprolol Tartrate [Lopressor] 50 mg PO HS@2100 Furosemide [Lasix] 80 mg PO BID Mycophenolate Mofetil [Cellcept] 500 mg PO BID@0800,2100 Cholecalciferol (Vitamin D3) [Vitamin D3] 2,000 unit PO DAILY@0800 Multivitamins, Thera [Multivitamin (formulary)] 1 tab PO DAILY@1700 Magnesium Oxide [Mag-Ox] 400 mg PO BID@0800,1700 predniSONE 2.5 mg PO DAILY@0800 Bisacodyl [Dulcolax] 10 mg RECTAL DAILY PRN PRN Reason: Constipation Nepro 1 can PO BID-W/MEALS Metoprolol Tartrate [Lopressor] 100 mg PO DAILY@0800 Pantoprazole [Protonix] 40 mg PO DAILY@0800 Docusate [Colace] 100 mg PO BID@0800,1700 Aspirin 81 mg PO DAILY@1700 INSULIN ASPART (NovoLOG) [NovoLOG (formulary)] See Protocol SQ ACHS Ipratropium-Albuterol Nebulize [Duoneb 0.5 mg-3 mg/3 ml Soln] 3 ml INHALATION RT-QID ampul.neb Acetaminophen [Tylenol] 650 mg PO Q4H PRN PRN Reason: Pain HYDROcodone/APAP 10-325MG [[place] 10-325] 1 tab PO QID Insulin Glargine [Lantus] 10 unit SQ HS@2100 Discharge Medication List Atorvastatin [Lipitor] 20 mg PO HS@2100 08/18/14 [History] Tacrolimus [Prograf] 3 mg PO QAM 08/18/14 [History] Allopurinol [Zyloprim] 100 mg PO DAILY@0800 10/10/16 [History] Tacrolimus [Prograf] 4 mg PO HS 11/26/16 [History] hydrALAZINE HCL [Apresoline] 25 mg PO TID #90 tab 11/29/16 [Rx] Metoprolol Tartrate [Lopressor] 50 mg PO HS@2100 12/25/16 [History] Cholecalciferol (Vitamin D3) [Vitamin D3] 2,000 unit PO DAILY@0800 01/29/19 [History] Furosemide [Lasix] 80 mg PO BID 08/05/18 [History] Magnesium Oxide [Mag-Ox] 400 mg PO BID@0800,17008/05/18 [History] Multivitamins, Thera [Multivitamin (formulary)] 1 tab PO DAILY@17008/05/18 [History] Mycophenolate Mofetil [Cellcept] 500 mg PO BID@0800,209908/05/18 [History] predniSONE 2.5 mg PO DAILY@0800 08/05/18 [History] Aspirin 81 mg PO DAILY@17009/01/18 [History] Bisacodyl [Dulcolax] 10 mg RECTAL DAILY PRN 09/01/18 [History] Docusate [Colace] 100 mg PO BID@0800,17009/01/18 [History] INSULIN ASPART (NovoLOG) [NovoLOG (formulary)] See Protocol SQ ACHS 09/01/18 [History] Metoprolol Tartrate [Lopressor] 100 mg PO DAILY@0809/01/18 [History] Nepro 1 can PO BID-W/MEALS 09/01/18 [History] Pantoprazole [Protonix] 40 mg PO DAILY@0809/01/18 [History] Ipratropium-Albuterol Nebulize [Duoneb 0.5 mg-3 mg/3 ml Soln] 3 ml INHALATION RT-QID ampul.neb 09/05/18 [Rx] Acetaminophen [Tylenol] 650 mg PO Q4H PRN 09/30/18 [History] HYDROcodone/APAP 10-325MG [[place] 10-325] 1 tab PO QID 09/30/18 [History] Insulin Glargine [Lantus] 10 unit SQ HS@209909/30/18 [History] Follow up Appointment(s)/Referral(s): Doroteo Bhatia MD [STAFF PHYSICIAN] - 1 Week Vivienne Nava MD [STAFF PHYSICIAN] - 1 Week (Office will call with follow up appointment.) Jayla Mahmood MD [Primary Care Provider] - 1-2 days García Wong DO [STAFF PHYSICIAN] - 1-2 Days (Please follow up at hemodialysis.) Patient Instructions/Handouts: Cellulitis (DC) Discharge Disposition: DISCH TO HOSPICE MED FACILTY
== END 2018-10-06 15:10 | disposition hospice, inpatient (51) | DRG 871 ==
LOC: EC 13:04 → 3SCARD 15:45 → 4MS4W 10-03 14:01
PROVIDERS: ADMIT Internal Medicine; ATTEND Internal Medicine
PROC: 5A1D70Z Performance of Urinary Filtration, Intermittent, Less than 6 Hours Per Day (ICD-10-PCS; principal; 2018-10-01)
PROC: 5A1D70Z Performance of Urinary Filtration, Intermittent, Less than 6 Hours Per Day (ICD-10-PCS; 2018-10-03)
PROC: 5A1D70Z Performance of Urinary Filtration, Intermittent, Less than 6 Hours Per Day (ICD-10-PCS; 2018-10-06)
DX: A41.9 Sepsis, unspecified organism (principal); N18.6 End stage renal disease; I50.23 Acute on chronic systolic (congestive) heart failure; G93.41 Metabolic encephalopathy; E43 Unspecified severe protein-calorie malnutrition; I13.2 Hypertensive heart and chronic kidney disease with heart failure and with stage 5 chronic kidney disease, or end stage renal disease; Z94.4 Liver transplant status; L03.115 Cellulitis of right lower limb; L03.116 Cellulitis of left lower limb; T86.12 Kidney transplant failure; E87.1 Hypo-osmolality and hyponatremia; J98.11 Atelectasis; I83.218 Varicose veins of right lower extremity with both ulcer of other part of lower extremity and inflammation; I83.228 Varicose veins of left lower extremity with both ulcer of other part of lower extremity and inflammation; L97.811 Non-pressure chronic ulcer of other part of right lower leg limited to breakdown of skin; L97.821 Non-pressure chronic ulcer of other part of left lower leg limited to breakdown of skin; Z66 Do not resuscitate; Z51.5 Encounter for palliative care; E11.22 Type 2 diabetes mellitus with diabetic chronic kidney disease; E11.649 Type 2 diabetes mellitus with hypoglycemia without coma; I48.0 Paroxysmal atrial fibrillation; I27.20 Pulmonary hypertension, unspecified; I44.7 Left bundle-branch block, unspecified; G40.909 Epilepsy, unspecified, not intractable, without status epilepticus; J44.9 Chronic obstructive pulmonary disease, unspecified; D63.1 Anemia in chronic kidney disease; I34.0 Nonrheumatic mitral (valve) insufficiency; D50.9 Iron deficiency anemia, unspecified; I25.10 Atherosclerotic heart disease of native coronary artery without angina pectoris; K21.9 Gastro-esophageal reflux disease without esophagitis; E78.5 Hyperlipidemia, unspecified; M19.90 Unspecified osteoarthritis, unspecified site; R77.8 Other specified abnormalities of plasma proteins; Z99.2 Dependence on renal dialysis; Z79.82 Long term (current) use of aspirin; Z79.4 Long term (current) use of insulin; Z79.891 Long term (current) use of opiate analgesic; Z79.52 Long term (current) use of systemic steroids; Z79.899 Other long term (current) drug therapy; Z87.01 Personal history of pneumonia (recurrent); Z87.891 Personal history of nicotine dependence; Z86.14 Personal history of Methicillin resistant Staphylococcus aureus infection; Z85.72 Personal history of non-Hodgkin lymphomas; Z95.5 Presence of coronary angioplasty implant and graft; Z98.42 Cataract extraction status, left eye; Z98.41 Cataract extraction status, right eye; Z96.1 Presence of intraocular lens; Z88.1 Allergy status to other antibiotic agents; Z88.5 Allergy status to narcotic agent; Z91.018 Allergy to other foods; Z82.49 Family history of ischemic heart disease and other diseases of the circulatory system; Z83.3 Family history of diabetes mellitus
CPT/HCPCS: 36415; 71046; 80053; 80202; 81001; 82728; 83540; 83550; 83605; 83880; 84484; 85025; 85610; 85730; 87040; 87086; 90935; 93005; 93970; 94640; 94760; 96361; 96365; 96375; 96376; 99285

== ENCOUNTER 2018-10-06 14:12 | Inpatient (IN) | payer MEDICAID ==
[2018-10-06] MEDS ORDERED: ATROPINE OPHTH SOLN 1% 5ML BTL SUBLINGUAL PRN (15:56)
[2018-10-06] MEDS: MORPHINE SULFATE (100 MG/2 ML) 100 MG in SODIUM CHLORIDE 0.9% 100 ML IV SCH ×2 (17:25→18:30)
[2018-10-06] MEDS: LORazepam 2 MG/ML INJ IV PRN (19:02)
[2018-10-06] MEDS: IPRATROPIUM-ALBUTEROL 3 ML NEB INHALATION SCH (19:13)
[2018-10-07] MEDS: IPRATROPIUM-ALBUTEROL 3 ML NEB INHALATION SCH ×4 (07:56→20:32)
[2018-10-07 08:08] VITALS: PULSE 88
[2018-10-07] MEDS: MORPHINE SULFATE (100 MG/2 ML) 100 MG in SODIUM CHLORIDE 0.9% 100 ML IV SCH (10:43)
--- NOTE | 2018-10-07 14:25 | P.HPIM ---
History of Present Illness H&P Date: 10/07/18 Chief Complaint: Hospice inpatient This is a 72-year-old male with a known history of congestive heart failure, end-stage renal disease hemodialysis dependent, coronary artery disease with cardiac stents, chronic paroxysmal atrial fibrillation, diabetes mellitus type 2, failed kidney transplant in 2011, liver transplant in 2005, non-Hodgkin's lymphoma, hyperlipidemia and hypertension. Patient also has chronic leg wounds and chronic leg pain. He was initially admitted to the hospital on 09/30/2018 with sepsis and cellulitis with venous stasis ulcers of the bilateral lower extremities. Started on IV antibiotics and evaluated by both infectious disease and nephrology. Patient's overall condition was very poor and guarded. Patient did not show significant improvement. There was discussion to place patient on comfort care and hospice. CODE STATUS was made DO NOT RESUSCITATE. Family decided to proceed with hospice care. Patient is now admitted to hospice inpatient. Continue with the morphine drip. Patient was having some grimacing and pain. Morphine drip was titrated up to 5 mg. Hospice is following. Review of Systems Please refer to HPI otherwise unremarkable Past Medical History Past Medical History: Asthma, Cancer, Heart Failure, COPD, Diabetes Mellitus, GERD/Reflux, Hyperlipidemia, Hypertension, Osteoarthritis (OA), Pneumonia, Renal Disease, Seizure Disorder Additional Past Medical History / Comment(s): 06/13/15 Pt presented to [facility] ER with SOB. He is admitted with clinical impression of CHF exacerbation, dyspnea and hyperglycemia, renal failure. 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 dialysis m/w/f History of Any Multi-Drug Resistant Organisms: MRSA Date of last positivie culture/infection: 12/26/16 MDRO Source:: NASAL Past Surgical History: Heart Catheterization, Heart Catheterization With Stent Additional Past Surgical History / Comment(s): liver transplant 2005 d/t non alcoholic steatohepatits d/t fatty liver, colonoscopy, insertion lt arm fistula(in past had hemodialysis)-kidney implant 2011, lt shoulder sx has pin in place, rt wrist sx with pins, cataract removal and lens implants bilaterally 2013. Past Anesthesia/Blood Transfusion Reactions: No Reported Reaction Date of Last Stent Placement:: 2007 Smoking Status: Former smoker - Past Family History Father Family Medical History: No Reported History, Cancer, Hypertension Additional Family Medical History / Comment(s): Father in his 80's. Mother Family Medical History: Diabetes Mellitus, Hypertension Additional Family Medical History / Comment(s): Mother in her 80's. Medications and Allergies Home Medications Medication Instructions Recorded Confirmed Type Atorvastatin [Lipitor] 20 mg PO HS@209908/18/14 10/06/18 History Tacrolimus [Prograf] 3 mg PO QAM 08/18/14 10/06/18 History Allopurinol [Zyloprim] 100 mg PO DAILY@0800 10/10/16 10/06/18 History Tacrolimus [Prograf] 4 mg PO HS 11/26/16 10/06/18 History hydrALAZINE HCL [Apresoline] 25 mg PO TID #90 tab 11/29/16 10/06/18 Rx Metoprolol Tartrate [Lopressor] 50 mg PO HS@209912/25/16 10/06/18 History Cholecalciferol (Vitamin D3) 2,000 unit PO DAILY@0800 08/05/18 10/06/18 History [Vitamin D3] Furosemide [Lasix] 80 mg PO BID 08/05/18 10/06/18 History Magnesium Oxide [Mag-Ox] 400 mg PO BID@0800,1700 08/05/18 10/06/18 History Multivitamins, Thera [Multivitamin 1 tab PO DAILY@169908/05/18 10/06/18 History (formulary)] Mycophenolate Mofetil [Cellcept] 500 mg PO BID@0800,2100 08/05/18 10/06/18 History predniSONE 2.5 mg PO DAILY@0800 08/05/18 10/06/18 History Aspirin 81 mg PO DAILY@0 09/01/18 10/06/18 History Bisacodyl [Dulcolax] 10 mg RECTAL DAILY PRN 09/01/18 10/06/18 History Docusate [Colace] 100 mg PO BID@0800,1700 09/01/18 10/06/18 History INSULIN ASPART (NovoLOG) [NovoLOG See Protocol SQ ACHS 09/01/18 10/06/18 History (formulary)] Metoprolol Tartrate [Lopressor] 100 mg PO DAILY@0800 09/01/18 10/06/18 History Nepro 1 can PO BID-W/MEALS 09/01/18 10/06/18 History Pantoprazole [Protonix] 40 mg PO DAILY@0800 09/01/18 10/06/18 History Ipratropium-Albuterol Nebulize 3 ml INHALATION RT-QID ampul.neb 09/05/18 10/06/18 Rx [Duoneb 0.5 mg-3 mg/3 ml Soln] Acetaminophen [Tylenol] 650 mg PO Q4H PRN 09/30/18 10/06/18 History HYDROcodone/APAP 10-325MG [[place] 1 tab PO QID 09/30/18 10/06/18 History 10-325] Insulin Glargine [Lantus] 10 unit SQ HS@2100 09/30/18 10/06/18 History Allergies Allergy/AdvReac Type Severity Reaction Status Date / Time heaton Allergy Unknown Verified 10/06/18 15:24 codeine Allergy Rash/Hives Verified 10/06/18 15:24 erythromycin base Allergy Swelling Verified 10/06/18 15:24 Physical Exam Vitals: Vital Signs Pulse Resp 10/07/18 08:07 88 10/07/18 07:55 87 10/06/18 21:42 14 Intake and Output 10/06/18 10/07/18 10/07/18 22:59 06:59 14:59 Intake Total 2.482 0 64.668 Output Total 125 100 Balance -122.518 -100 64.668 Intake: Intake, IV Titration 2.482 64.668 Amount Morphine Sulfate (100 mg/ 2.482 64.668 2 ml) 100 mg In Sodium Chloride 0.9% 100 ml @ Titrate IV .Q0M [facility] Rx#: [id number] Oral 0 Output: Urine 125 100 Uretheral (Deng) 50 Other: Voiding Method Indwelling Catheter Indwelling Catheter Indwelling Catheter # Voids 0 # Bowel Movements 0 Head normocephalic Neck supple Lungs clear to auscultation bilaterally no wheezing or crackles Heart regular rate and rhythm S1-S2, no rub or gallop Abdomen is soft nontender nondistended positive bowel sounds no hepatosplenomegaly Extremities no edema Neuro patient will open his eyes. Some grimacing noted. Assessment and Plan Assessment: Terminal diagnosis: End-stage renal disease, chronic systolic CHF 1. End-stage renal disease had been on hemodialysis 2. Metabolic encephalopathy secondary to sepsis and bilateral lower extremity cellulitis 3. Bilateral lower extremity cellulitis with venous stasis ulcers 4. Diabetes mellitus type 2 5. Chronic paroxysmal atrial fibrillation 6. Failed kidney transplant in 2011 7. Status post liver transplant 2005 8. History of coronary artery disease with cardiac stents 9. History of chronic systolic congestive heart failure with an EF of 45-50% 10. History of non-Hodgkin's lymphoma Patient has been admitted to inpatient hospice. Continue with titrating the morphine drip as needed for comfort. Continue with the IV Ativan as needed. Time with Patient: Greater than 30 (Greater than 50% of the total time spent in counseling and coordination of care.I performed an examination of the patient and discussed their management with the physician Infantryman. I have reviewed the Physician Infantryman's notes and agree with the documented findings and plan of care)
[2018-10-08] MEDS: MORPHINE SULFATE (100 MG/2 ML) 100 MG in SODIUM CHLORIDE 0.9% 100 ML IV SCH ×2 (05:06→19:25)
[2018-10-08 05:30] VITALS: TEMP 100
--- NOTE | 2018-10-08 11:07 | P.PN ---
Subjective Progress Note Date: 10/08/18 This is a 72-year-old male with a known history of congestive heart failure, end-stage renal disease hemodialysis dependent, coronary artery disease with cardiac stents, chronic paroxysmal atrial fibrillation, diabetes mellitus type 2, failed kidney transplant in 2011, liver transplant in 2005, non-Hodgkin's lymphoma, hyperlipidemia and hypertension. Patient also has chronic leg wounds and chronic leg pain. He was initially admitted to the hospital on 09/30/2018 with sepsis and cellulitis with venous stasis ulcers of the bilateral lower extremities. Started on IV antibiotics and evaluated by both infectious disease and nephrology. Patient's overall condition was very poor and guarded. Patient did not show significant improvement. There was discussion to place patient on comfort care and hospice. CODE STATUS was made DO NOT RESUSCITATE. Family decided to proceed with hospice care. Patient is now admitted to hospice inpatient. Continue with the morphine drip. Patient was having some grimacing and pain. Morphine drip was titrated up to 5 mg. Hospice is following. On 10/08/2018 patient is resting comfortably in bed. Patient does not appear to be in pain. Family is at bedside. Patient remains on hospice care Objective - Vital Signs Vital signs: Vital Signs Temp 100.0 F H 10/08/18 05:00 Pulse 88 10/07/18 08:07 Resp 11 L 10/08/18 05:00 BP Pulse Ox Intake & Output 10/07/18 10/08/18 10/08/18 18:59 06:59 18:59 Intake Total 64.668 153.33 30.09 Output Total 10 Balance 54.668 153.33 30.09 Intake: IV 60 Morphine Sulfate (100 mg/ 60 2 ml) 100 mg In Sodium Chloride 0.9% 100 ml @ Titrate IV .Q0M [facility] Rx#: [id number] Intake, IV Titration 64.668 93.33 30.09 Amount Morphine Sulfate (100 mg/ 64.668 93.33 30.09 2 ml) 100 mg In Sodium Chloride 0.9% 100 ml @ Titrate IV .Q0M [facility] Rx#: [id number] Output: Urine 10 Other: Voiding Method Indwelling Catheter Indwelling Catheter # Voids 0 # Bowel Movements 0 0 - Exam ead normocephalic Neck supple Lungs clear to auscultation bilaterally no wheezing or crackles Heart regular rate and rhythm S1-S2, no rub or gallop Abdomen is soft nontender nondistended positive bowel sounds no hepatosplenomegaly Extremities no edema Neuro patient will open his eyes. Assessment and Plan Assessment: Terminal diagnosis: End-stage renal disease, chronic systolic CHF 1. End-stage renal disease had been on hemodialysis 2. Metabolic encephalopathy secondary to sepsis and bilateral lower extremity cellulitis 3. Bilateral lower extremity cellulitis with venous stasis ulcers 4. Diabetes mellitus type 2 5. Chronic paroxysmal atrial fibrillation 6. Failed kidney transplant in 2011 7. Status post liver transplant 2005 8. History of coronary artery disease with cardiac stents 9. History of chronic systolic congestive heart failure with an EF of 45-50% 10. History of non-Hodgkin's lymphoma Patient has been admitted to inpatient hospice. Continue with titrating the morphine drip as needed for comfort. Continue with the IV Ativan as needed. I performed an examination of the patient and discussed their management with the Nurse Practitioner. I have reviewed the Nurse Practitioner's notes and agree with the documented findings and plan of care
[2018-10-08] MEDS: LORazepam 2 MG/ML INJ IV PRN ×2 (12:11→17:55)
[2018-10-08] MEDS: IPRATROPIUM-ALBUTEROL 3 ML NEB INHALATION SCH ×2 (12:15→12:16)
[2018-10-08] MEDS ORDERED: SCOPOLAMINE 1.5MG/72HR PATCH TRANSDERM SCH (13:00)
[2018-10-08] MEDS ORDERED: IPRATROPIUM-ALBUTEROL 3 ML NEB INHALATION PRN (13:22)
[2018-10-08 15:27] VITALS: RESP 12
--- NOTE | 2018-10-09 12:58 | P.DS ---
Providers Date of admission: 10/06/18 14:45 Expected date of discharge: 10/08/18 Attending physician: Jayla Mahmood Primary care physician: Jayla Mahmood [facility] Course: Summary Terminal diagnosis Terminal diagnosis: End-stage renal disease, chronic systolic CHF 1. End-stage renal disease had been on hemodialysis 2. Metabolic encephalopathy secondary to sepsis and bilateral lower extremity cellulitis 3. Bilateral lower extremity cellulitis with venous stasis ulcers 4. Diabetes mellitus type 2 5. Chronic paroxysmal atrial fibrillation 6. Failed kidney transplant in 2011 7. Status post liver transplant 2005 8. History of coronary artery disease with cardiac stents 9. History of chronic systolic congestive heart failure with an EF of 45-50% 10. History of non-Hodgkin's lymphoma Hospital course This is a 72-year-old male with a known history of congestive heart failure, end-stage renal disease hemodialysis dependent, coronary artery disease with cardiac stents, chronic paroxysmal atrial fibrillation, diabetes mellitus type 2, failed kidney transplant in 2011, liver transplant in 2005, non-Hodgkin's lymphoma, hyperlipidemia and hypertension. Patient also has chronic leg wounds and chronic leg pain. He was initially admitted to the hospital on 09/30/2018 with sepsis and cellulitis with venous stasis ulcers of the bilateral lower extremities. Started on IV antibiotics and evaluated by both infectious disease and nephrology. Patient's overall condition was very poor and guarded. Patient did not show significant improvement. There was discussion to place patient on comfort care and hospice. CODE STATUS was made DO NOT RESUSCITATE. Family decided to proceed with hospice care. Patient is now admitted to hospice inpatient. Continue with the morphine drip. Patient was having some grimacing and pain. Morphine drip was titrated up to 5 mg. Hospice is following. On 10/08/2018 patient is resting comfortably in bed. Patient does not appear to be in pain. Family is at bedside. Patient remains on hospice care Patient on 10/08/2018 in the evening. I performed an examination of the patient and discussed their management with the physician [employer] Artistic Director. I have reviewed the Physician [employer] Artistic Director's notes and agree with the documented findings and plan of care Plan - Discharge Summary New Discharge Prescriptions: No Action Atorvastatin [Lipitor] 20 mg PO HS@2100 Tacrolimus [Prograf] 3 mg PO QAM Allopurinol [Zyloprim] 100 mg PO DAILY@0800 Tacrolimus [Prograf] 4 mg PO HS hydrALAZINE HCL [Apresoline] 25 mg PO TID #90 tab Metoprolol Tartrate [Lopressor] 50 mg PO HS@2100 Furosemide [Lasix] 80 mg PO BID Mycophenolate Mofetil [Cellcept] 500 mg PO BID@0800,2100 Cholecalciferol (Vitamin D3) [Vitamin D3] 2,000 unit PO DAILY@0800 Multivitamins, Thera [Multivitamin (formulary)] 1 tab PO DAILY@1700 Magnesium Oxide [Mag-Ox] 400 mg PO BID@0800,1700 predniSONE 2.5 mg PO DAILY@0800 Bisacodyl [Dulcolax] 10 mg RECTAL DAILY PRN PRN Reason: Constipation Nepro 1 can PO BID-W/MEALS Metoprolol Tartrate [Lopressor] 100 mg PO DAILY@0800 Pantoprazole [Protonix] 40 mg PO DAILY@0800 Docusate [Colace] 100 mg PO BID@0800,1700 Aspirin 81 mg PO DAILY@1700 INSULIN ASPART (NovoLOG) [NovoLOG (formulary)] See Protocol SQ ACHS Ipratropium-Albuterol Nebulize [Duoneb 0.5 mg-3 mg/3 ml Soln] 3 ml INHALATION RT-QID ampul.neb Acetaminophen [Tylenol] 650 mg PO Q4H PRN PRN Reason: Pain HYDROcodone/APAP 10-325MG [Mesa 10-325] 1 tab PO QID Insulin Glargine [Lantus] 10 unit SQ HS@2100 Discharge Medication List Atorvastatin [Lipitor] 20 mg PO HS@2100 08/18/14 [History] Tacrolimus [Prograf] 3 mg PO QAM 08/18/14 [History] Allopurinol [Zyloprim] 100 mg PO DAILY@0800 10/10/16 [History] Tacrolimus [Prograf] 4 mg PO HS 11/26/16 [History] hydrALAZINE HCL [Apresoline] 25 mg PO TID #90 tab 11/29/16 [Rx] Metoprolol Tartrate [Lopressor] 50 mg PO HS@2100 12/25/16 [History] Cholecalciferol (Vitamin D3) [Vitamin D3] 2,000 unit PO DAILY@0800 08/05/18 [History] Furosemide [Lasix] 80 mg PO BID 08/05/18 [History] Magnesium Oxide [Mag-Ox] 400 mg PO BID@0800,1700 08/05/18 [History] Multivitamins, Thera [Multivitamin (formulary)] 1 tab PO DAILY@169908/05/18 [History] Mycophenolate Mofetil [Cellcept] 500 mg PO BID@0800,209908/05/18 [History] predniSONE 2.5 mg PO DAILY@0800 08/05/18 [History] Aspirin 81 mg PO DAILY@169909/01/18 [History] Bisacodyl [Dulcolax] 10 mg RECTAL DAILY PRN 09/01/18 [History] Docusate [Colace] 100 mg PO BID@0800,17009/01/18 [History] INSULIN ASPART (NovoLOG) [NovoLOG (formulary)] See Protocol SQ ACHS 09/01/18 [History] Metoprolol Tartrate [Lopressor] 100 mg PO DAILY@0800 09/01/18 [History] Nepro 1 can PO BID-W/MEALS 09/01/18 [History] Pantoprazole [Protonix] 40 mg PO DAILY@0809/01/18 [History] Ipratropium-Albuterol Nebulize [Duoneb 0.5 mg-3 mg/3 ml Soln] 3 ml INHALATION RT-QID ampul.neb 09/05/18 [Rx] Acetaminophen [Tylenol] 650 mg PO Q4H PRN 09/30/18 [History] HYDROcodone/APAP 10-325MG [Mesa 10-325] 1 tab PO QID 09/30/18 [History] Insulin Glargine [Lantus] 10 unit SQ HS@209909/30/18 [History] Discharge Disposition: - Preliminary Cause of Preliminary Cause of : End-stage renal disease
== END 2018-10-08 21:45 | disposition expired | DRG 951 ==
LOC: 4MS4W 14:45
PROVIDERS: ADMIT Internal Medicine; ATTEND Internal Medicine
DX: Z51.5 Encounter for palliative care (principal); I50.23 Acute on chronic systolic (congestive) heart failure; A41.9 Sepsis, unspecified organism; G93.41 Metabolic encephalopathy; N18.6 End stage renal disease; I13.2 Hypertensive heart and chronic kidney disease with heart failure and with stage 5 chronic kidney disease, or end stage renal disease; Z94.4 Liver transplant status; L03.115 Cellulitis of right lower limb; L03.116 Cellulitis of left lower limb; L97.919 Non-pressure chronic ulcer of unspecified part of right lower leg with unspecified severity; L97.929 Non-pressure chronic ulcer of unspecified part of left lower leg with unspecified severity; Z94.0 Kidney transplant status; J44.9 Chronic obstructive pulmonary disease, unspecified; E11.65 Type 2 diabetes mellitus with hyperglycemia; E11.22 Type 2 diabetes mellitus with diabetic chronic kidney disease; I83.019 Varicose veins of right lower extremity with ulcer of unspecified site; I83.029 Varicose veins of left lower extremity with ulcer of unspecified site; I48.0 Paroxysmal atrial fibrillation; G40.909 Epilepsy, unspecified, not intractable, without status epilepticus; Z66 Do not resuscitate; I25.10 Atherosclerotic heart disease of native coronary artery without angina pectoris; E78.5 Hyperlipidemia, unspecified; G89.29 Other chronic pain; K21.9 Gastro-esophageal reflux disease without esophagitis; M19.90 Unspecified osteoarthritis, unspecified site; Z79.899 Other long term (current) drug therapy; Z79.82 Long term (current) use of aspirin; Z79.4 Long term (current) use of insulin; Z98.42 Cataract extraction status, left eye; Z85.72 Personal history of non-Hodgkin lymphomas; Z99.2 Dependence on renal dialysis; Z95.5 Presence of coronary angioplasty implant and graft; Z98.41 Cataract extraction status, right eye; Z96.1 Presence of intraocular lens; Z87.01 Personal history of pneumonia (recurrent); Z87.891 Personal history of nicotine dependence; Z88.1 Allergy status to other antibiotic agents; Z88.5 Allergy status to narcotic agent; Z91.018 Allergy to other foods; Z83.3 Family history of diabetes mellitus; Z82.49 Family history of ischemic heart disease and other diseases of the circulatory system
CPT/HCPCS: 90935; 94640